=== PATIENT | male | born 1960 | race Caucasian/White ===

== ENCOUNTER → 2016-03-17 | Day surgery (SDC) | payer OTHER ==
[~2016-03-17] VITALS: Ht 180.3 cm; Wt 115.9 kg
[~2016-03-17] MED LIST: ALBUAER9 INH; APDI SC; ASPI1TAB83 PO; ATOR-26 PO; ATRIN INH; ATRINSX INH; ATV/1 PO; AZEL30SP NAE; AZELASTINE HCL 0.1% NAE; BUPR-79 PO; CLAR500T3 PO; CLR10 PO; CRDCD/180 PO; DILT-113 PO; DOCU100C31 PO; ERGO1CAP41 PO; FLNIN NAE; FLOVENT 220 MCG INH; FLUT0.15 NAE; FLUT1INH PO; FLUT1INH7 INH; GABA-113 PO; GABA600T PO; GLIP-171 PO; GLIP5TAB3 PO; GUAI1TAB55 PO; INSDGIPEN SC; INSU100I2 SQ; IPRA1AER2 INH; LEVO-366 PO; LIDOCAINE HCL 2% 2 ML VIAL (20MG/ML) ONE; LISI-461 PO; LISI5TAB PO; MECL1TAB42 PO; METF1000 PO; METH10TA PO; MIDAZOLAM HCL 1 MG/ML 2ML VIAL ONE; MISCCAP80 PO; MONT1TAB5 PO; MTH10 PO; MULT-190 PO; NRN800 PO; ONDANSETRON INJ 2 MG/ML 2 ML VIAL ONE; OXGN; OXYC1TAB3 PO; PANT40TA PO; PRED10TA PO; PROM25TA9 PO; PROPOFOL IV EMULSION 10 MG/ML 20 ML VIAL IV ONE; PRVIN5 INH; RANI150T3 PO; SALI0.6510 NAE; SUCR1TAB29 PO; SYMIN160 INH; UMEC1INH INH; ZTHM250 OR
--- NOTE | 2016-03-17 10:43 | Endo History and Physical ---
History & Physical Date of Service: Mar 17, 2016. Chief Complaint: chest pain Referring Physician: Dr. Lupe Dean History of Present Illness Patient referred for evaluation of intermitant chest pain and occional solid food dyphagia. Long history of COPD, ASCAD, CHF and DM. Past Medical History Diabetes, Arthritis, Anxiety, Hypertension, COPD, Depression Past Surgical History Hx Cardiac Surgery: No Hx Abdominal Surgery: No Hx Post-Op Nausea and Vomiting: No Hx Cancer Surgery: No Hx Thoracic Surgery: No Hx Orthopedic: No Hx Urinary Tract Surgery: Yes (lithotripsy) Social History Smoking Status: Never Smoker Hx Substance Use: No Hx Alcohol Use: No Allergies Coded Allergies: Fentanyl (Verified Allergy, Mild, 03/17/16) Atenolol (Verified Allergy, Unknown, DEPRESSION/SUICIDAL, 03/17/16) Celecoxib (Verified Allergy, Unknown, -, 03/17/16) PT STATES HE DOES NOT REMEMBER, IT WAS SO LONG AGO (OK TO TAKE FLOMAX) Fluoxetine (Verified Adverse Reaction, Mild, LIGHTHEADED,NAUSEA, 03/17/16) Current Medications Reported Home Medications Medications Dose Route/Sig Max Daily Dose Days Date Category Dose Instructions Levaquin (Levofloxacin) 500 Mg Tab 500 Mg PO DAILY 7 02/19/16 Reported [place] Nasal [place] (Saline) 0.65 % Spr 2 Sprays LILLI DAILY PRN 02/19/16 Reported Docusate Sodium 100 Mg Cap 1 Cap PO DAILY 30 02/19/16 Reported Claritin (Loratadine) 10 Mg Tab 10 Mg PO HS 02/19/16 Reported Atrovent 0.02% Soln (Ipratropium [place]) 2.5 Ml Nebu 2.5 Ml INH Q6H PRN 02/19/16 Reported Carafate (Sucralfate) 1 Gm Tab 1 Gm PO ACHS 02/19/16 Reported one pill as a slurry by mouth one half curtis before meals and at bedtime Zantac (Ranitidine HCl) 150 Mg Tab 300 Mg PO HS 02/19/16 Reported Tiazac (Diltiazem HCl) 180 Mg Capcr 180 Mg PO DAILY 02/19/16 Reported [azelastine hcl 0.1%] 1 [place] LILLI BID 02/19/16 Reported Symbicort 160/4.5 Inhaler (Budesonide/Formoterol Fumarate) Aero 2 Puffs INH BID 02/19/16 Reported Lipitor (Atorvastatin Calcium) 80 Mg Tab 80 Mg PO HS 02/19/16 Reported Biaxin (Clarithromycin) 500 Mg Tab 1 Tab PO BID 10 02/19/16 Reported Neurontin (Gabapentin) 300 Mg Cap 900 Mg PO TID 02/19/16 Reported Combivent Respimat (Ipratropium-Albuterol) 1 Aer Aer 2 Puffs INH QID PRN 02/19/16 Reported Lantus Solostar (Insulin Glargine) 100 Unit/Ml Inj 25 SC BID 02/19/16 Reported per sliding scale [flovent hfa 220mcg] 1 Puff INH BID 02/19/16 Reported Probiotic (Probiotic Product) 1 Cap Cap 1 Cap PO TIDM 02/19/16 Reported Montelukast Sodium 10 Mg Tab 1 Tab PO HS 90 02/19/16 Reported Incruse Ellipta (Umeclidinium [place]) 62.5 Mcg/Inh Inh 1 Puff INH DAILY 02/19/16 Reported Roxicodone Ir (Oxycodone HCl) 5 Mg Tab 15 Mg PO TID PRN 02/19/16 Reported Wellbutrin Sr (Bupropion HCl) 150 Mg Ertab 150 Mg PO BID 04/10/15 Reported Glucotrol (Glipizide) 5 Mg Tab 5 Mg PO BID PRN 04/10/15 Reported Apidra Solostar (Insulin Glulisine) 100 Units/Ml Inj 15 Units INJ TIDM 04/10/15 Reported Breo Ellipta (Fluticasone Furoate-Vilanterol) 1 Inh Inh 1 Inha PO DAILY 04/10/15 Reported Oxygen Gas 2 Liters NA HS 03/29/14 Reported Mucinex Ext Rel (Guaifenesin) 600 Mg Tab 600 Mg PO Q12 03/29/14 Reported Ativan (Lorazepam) 1 Mg Tab 1 Mg PO TID PRN 03/29/14 Reported Humalog Kwikpen (Insulin Lispro (Human)) 100 Unit/Ml Inj 15 Units SQ SHASTA MEAL 03/29/14 Reported Humalog Kwikpen (Insulin Lispro (Human)) 100 Unit/Ml Inj 12 Units SQ LUNCH 03/29/14 Reported Humalog Kwikpen (Insulin Lispro (Human)) 100 Unit/Ml Inj 10 Units SQ BREAKFAST 03/29/14 Reported Flonase Nasal [place] (Fluticasone Propionate) 120 Sprays/6000 Mcg Inha 2 Sprays LILLI DAILY 12/19/12 Reported Aspirin 81 Mg Tab 81 Mg PO DAILY 12/19/12 Reported Prednisone 10 Mg Tab 20 Mg PO UD PRN 12/19/12 Reported take 20mg daily for 10 days Glucophage (Metformin Hcl) 1,000 Mg Tab 1,000 Mg PO BIDM 12/19/12 Reported Protonix (Pantoprazole Sodium) 40 Mg Tab 40 Mg PO QAM 05/21/12 Reported TAKE 30 MINUTES BEFORE THE FIRST MEAL OF THE DAY. Prinivil (Lisinopril) 5 Mg Tab 10 Mg PO DAILY 04/15/12 Reported Proventil Hfa (Albuterol Sulfate) Aer 0.5 Ml INH Q4H PRN 11/05/11 Reported combine with atrovent Vitamin D 16959 Unit (Ergocalciferol) 50,000 Unit Cap 50,000 Units PO WK 06/02/11 Reported SUNDAYS Dolophine (Methadone Hcl) 10 Mg Tab 10 Mg PO Q8 06/02/11 Reported Physical Exam General Appearance: no apparent distress Respiratory/Chest: Auscultation: deminished air movement Cardiovascular: Heart Auscultation: II/ MANOJ Abdomen: Inspection & Palpation: soft, pertinent finding (obese) Assessment and Plan EGD for evalaution of intermitant chest pain and solid food dysphagia. Risks discussed to include bleeding, infection, perforation, pain, and cardiopulmonary problems.
[2016-03-17 10:51] VITALS: Ht 180.3 cm; Wt 115.9 kg
[2016-03-17 10:55] VITALS: TEMP 36.9
--- NOTE | 2016-03-17 11:16 | GI REPORT ---
Procedure Date: 03/17/2016 11:00 AM Procedure: Upper GI endoscopy Indications: Dysphagia, Unexplained chest pain Medicines: Monitored Anesthesia Care Complications: No immediate complications. Estimated blood loss: Minimal. Estimated Blood Loss: Estimated blood loss was minimal. Procedure: Pre-Anesthesia Assessment: - Prior to the procedure, a History and Physical was performed, and patient medications, allergies and sensitivities were reviewed. The patient's tolerance of previous anesthesia was reviewed. - The risks and benefits of the procedure and the sedation options and risks were discussed with the patient. All questions were answered and informed consent was obtained. - Patient identification and proposed procedure were verified prior to the procedure by the physician, the nurse and the rubber goods finisher. The procedure was verified in the procedure room. - Pre-procedure physical examination revealed no contraindications to sedation. - ASA Grade Assessment: III - A patient with severe systemic disease. - After reviewing the risks and benefits, the patient was deemed in satisfactory condition to undergo the procedure. - The anesthesia plan was to use monitored anesthesia care (MAC). - Immediately prior to administration of medications, the patient was re-assessed for adequacy to receive sedatives. - The heart rate, respiratory rate, oxygen saturations, blood pressure, adequacy of pulmonary ventilation, and response to care were monitored throughout the procedure. - The physical status of the patient was re-assessed after the procedure. After obtaining informed consent, the endoscope was passed under direct vision. Throughout the procedure, the patient's blood pressure, pulse, and oxygen saturations were monitored continuously. The scope was introduced through the mouth, and advanced to the third part of duodenum. The upper GI endoscopy was accomplished without difficulty. The patient tolerated the procedure well. Findings: No endoscopic abnormality was evident in the esophagus to explain the patient's complaint of dysphagia. It was decided, however, to proceed with dilation of the entire esophagus. A guidewire was placed and the scope was withdrawn. Dilation was performed with a Savary dilator with mild resistance at 54 Fr. The endoscope was then reinserted to evaluate the success of the procedure. Estimated blood loss: none. Biopsies were taken with a cold forceps for histology. Estimated blood loss was minimal. The Z-line was regular and was found 40 cm from the incisors. Diffuse minimal inflammation characterized by erythema and granularity was found in the entire examined stomach. Biopsies were taken with a cold forceps for histology. Estimated blood loss was minimal. The examined duodenum was normal. Biopsies for histology were taken with a cold forceps for evaluation of celiac disease. Estimated blood loss was minimal. Impression: - No endoscopic esophageal abnormality to explain patient's dysphagia. Esophagus dilated to 54 Fr today. Biopsied to evalaute for evidence of reflux. - Z-line regular, 40 cm from the incisors. - Gastritis. Biopsied. - Normal examined duodenum. Biopsied. Recommendation: - Discharge patient to home (ambulatory). - Advance diet as tolerated today. - Await pathology results. - Observe patient's clinical course following today's procedure with therapeutic intervention. - Return to referring physician as previously scheduled. Manuel Michaels D.O. Manuel Michaels, 03/17/2016 11:16:33 AM This report has been signed electronically. Note Initiated On: 03/17/2016 11:00 AM
--- NOTE | 2016-03-17 11:18 | Discharge Instructions ---
Endoscopy Patient Instructions Date / Procedure(s) Performed Mar 17, 2016. EGD Allergy Information Coded Allergies: Fentanyl (Verified Allergy, Mild, 03/17/16) Atenolol (Verified Allergy, Unknown, DEPRESSION/SUICIDAL, 03/17/16) Celecoxib (Verified Allergy, Unknown, -, 03/17/16) PT STATES HE DOES NOT REMEMBER, IT WAS SO LONG AGO (OK TO TAKE FLOMAX) Fluoxetine (Verified Adverse Reaction, Mild, LIGHTHEADED,NAUSEA, 03/17/16) Discharge Date / Findings Mar 17, 2016. Mild gastritis otherwise normal Medication Instructions Stopped Medication(s): no PAT did not take any medications Restart Stopped Medication(s): Reported Home Medications Medications Dose Route/Sig Max Daily Dose Days Date Category Dose Instructions Levaquin (Levofloxacin) 500 Mg Tab 500 Mg PO DAILY 7 02/19/16 Reported [place] Nasal [place] (Saline) 0.65 % Spr 2 Sprays LILLI DAILY PRN 02/19/16 Reported Docusate Sodium 100 Mg Cap 1 Cap PO DAILY 30 02/19/16 Reported Claritin (Loratadine) 10 Mg Tab 10 Mg PO HS 02/19/16 Reported Atrovent 0.02% Soln (Ipratropium [place]) 2.5 Ml Nebu 2.5 Ml INH Q6H PRN 02/19/16 Reported Carafate (Sucralfate) 1 Gm Tab 1 Gm PO ACHS 02/19/16 Reported one pill as a slurry by mouth one half [place]is before meals and at bedtime Zantac (Ranitidine HCl) 150 Mg Tab 300 Mg PO HS 02/19/16 Reported Tiazac (Diltiazem HCl) 180 Mg Capcr 180 Mg PO DAILY 02/19/16 Reported [azelastine hcl 0.1%] 1 [place] LILLI BID 02/19/16 Reported Symbicort 160/4.5 Inhaler (Budesonide/Formoterol Fumarate) Aero 2 Puffs INH BID 02/19/16 Reported Lipitor (Atorvastatin Calcium) 80 Mg Tab 80 Mg PO HS 02/19/16 Reported Biaxin (Clarithromycin) 500 Mg Tab 1 Tab PO BID 10 02/19/16 Reported Neurontin (Gabapentin) 300 Mg Cap 900 Mg PO TID 02/19/16 Reported Combivent Respimat (Ipratropium-Albuterol) 1 Aer Aer 2 Puffs INH QID PRN 02/19/16 Reported Lantus Solostar (Insulin Glargine) 100 Unit/Ml Inj 25 SC BID 02/19/16 Reported per sliding scale [flovent hfa 220mcg] 1 Puff INH BID 02/19/16 Reported Probiotic (Probiotic Product) 1 Cap Cap 1 Cap PO TIDM 02/19/16 Reported Montelukast Sodium 10 Mg Tab 1 Tab PO HS 90 02/19/16 Reported Incruse Ellipta (Umeclidinium [place]) 62.5 Mcg/Inh Inh 1 Puff INH DAILY 02/19/16 Reported Roxicodone Ir (Oxycodone HCl) 5 Mg Tab 15 Mg PO TID PRN 02/19/16 Reported Wellbutrin Sr (Bupropion HCl) 150 Mg Ertab 150 Mg PO BID 04/10/15 Reported Glucotrol (Glipizide) 5 Mg Tab 5 Mg PO BID PRN 04/10/15 Reported Apidra Solostar (Insulin Glulisine) 100 Units/Ml Inj 15 Units INJ TIDM 04/10/15 Reported Breo Ellipta (Fluticasone Furoate-Vilanterol) 1 Inh Inh 1 Inha PO DAILY 04/10/15 Reported Oxygen Gas 2 Liters NA HS 03/29/14 Reported Mucinex Ext Rel (Guaifenesin) 600 Mg Tab 600 Mg PO Q12 03/29/14 Reported Ativan (Lorazepam) 1 Mg Tab 1 Mg PO TID PRN 03/29/14 Reported Humalog Kwikpen (Insulin Lispro (Human)) 100 Unit/Ml Inj 15 Units SQ SHASTA MEAL 03/29/14 Reported Humalog Kwikpen (Insulin Lispro (Human)) 100 Unit/Ml Inj 12 Units SQ LUNCH 03/29/14 Reported Humalog Kwikpen (Insulin Lispro (Human)) 100 Unit/Ml Inj 10 Units SQ BREAKFAST 03/29/14 Reported Flonase Nasal [place] (Fluticasone Propionate) 120 Sprays/6000 Mcg Inha 2 Sprays LILLI DAILY 12/19/12 Reported Aspirin 81 Mg Tab 81 Mg PO DAILY 12/19/12 Reported Prednisone 10 Mg Tab 20 Mg PO UD PRN 12/19/12 Reported take 20mg daily for 10 days Glucophage (Metformin Hcl) 1,000 Mg Tab 1,000 Mg PO BIDM 12/19/12 Reported Protonix (Pantoprazole Sodium) 40 Mg Tab 40 Mg PO QAM 05/21/12 Reported TAKE 30 MINUTES BEFORE THE FIRST MEAL OF THE DAY. Prinivil (Lisinopril) 5 Mg Tab 10 Mg PO DAILY 04/15/12 Reported Proventil Hfa (Albuterol Sulfate) Aer 0.5 Ml INH Q4H PRN 11/05/11 Reported combine with atrovent Vitamin D 75692 Unit (Ergocalciferol) 50,000 Unit Cap 50,000 Units PO WK 06/02/11 Reported SUNDAYS Dolophine (Methadone Hcl) 10 Mg Tab 10 Mg PO Q8 06/02/11 Reported Provider Instructions Activity Restrictions - No exercising or heavy lifting for 24 hours. - Do not drink alcohol the day of the procedure. - Do not drive a car or operate machinery until the day after the procedure. - Do not make any important decisions or sign important papers in 24 hours after the procedure. Following Day: - Return to full activity which may include returning to work/school. Diet Start your diet with liquids and light foods (jello, soup, juice, toast). Then eat your usual diet if not nauseated. Treatment For Common After Affects For mild abdominal pain, bloating, or excessive gas: - Rest - Eat lightly - Lie on right side Follow-Up Information Follow-up with Dr. Dean as scheduled Await pathology results No EGD finding to explain recurrent chest pain. Anesthesia Information What You Should Know You have had a procedure that required some medicine to reduce anxiety and discomfort. This treatment is called moderate sedation. After receiving the treatment, you may be sleepy, but you will be able to breathe on your own. The effects of the treatment may last for several hours. Follow these instructions along with Activity/Diet recommendations noted above: * Do NOT do anything where dizziness or clumsiness would be dangerous. * Rest quietly at home today, then you can be up and about tomorrow. * Have a responsible person stay with you the rest of today. * You may have had an I.V. today. If so, you may take the dressing off later today. Recommendations Call your doctor if: * Trouble breathing * Continuous vomiting for more than 24 hours * Temperature above 101 degrees * Severe abdominal pain or bloating * Pain not relieved by pain medicine ordered * There is increased drainage or redness from any incision * A large amount of rectal bleeding greater than 2-3 tablespoons. (If you had a polyp/s removed or have hemorrhoids, a small amount of blood - from the rectum is to be expected.) * You have any unanswered questions or concerns. IN THE EVENT OF A SERIOUS EMERGENCY, GO TO THE NEAREST EMERGENCY ROOM Your discharge instructions were prepared by provider Manuel Michaels. Patient Instructions Signature Page Sina Ann Patient (or Guardian) Signature/Date: I have read and understand the instructions given to me by my caregivers. Caregiver/RN/Doctor Signature/Date: The above-named patient and/or guardian has received patient instructions on this date. + Original Patient Signature Page (only) stays with chart. Please make copy for patient.
--- NOTE | 2016-03-17 12:14 | Anesthesiology Progress Note ---
Anesthesia Post Op Note Date & Time Mar 17, 2016 at 12:14 Vital Signs Pain Intensity: 2 Vital Signs Past 12 Hours Date Time Temp Pulse Resp B/P Pulse Ox O2 Delivery O2 Flow Rate FiO2 03/17/16 11:57 81 18 106/73 91 Room Air 03/17/16 11:50 80 18 109/70 92 Room Air 03/17/16 11:30 76 18 109/67 93 Room Air 03/17/16 11:18 80 18 115/67 96 Mask 6 03/17/16 10:55 36.9 95 18 133/83 96 Room Air Notes Mental Status: alert / awake / arousable, participated in evaluation Pt Amnestic to Procedure: Yes Nausea / Vomiting: adequately controlled Pain: adequately controlled Airway Patency, RR, SpO2: stable & adequate BP & HR: stable & adequate Hydration State: stable & adequate Anesthetic Complications: no major complications apparent
[2016-03-17 12:32] VITALS: BP 107/60; PULSE 76; O2SAT 91
== END | disposition home or self-care (01) ==
LOC: C.GI 09:37
PROVIDERS: ATTEND Internal Medicine Gastroenterology
DX: R13.10 Dysphagia, unspecified (principal); K29.70 Gastritis, unspecified, without bleeding; R07.89 Other chest pain; K21.9 Gastro-esophageal reflux disease without esophagitis; J44.9 Chronic obstructive pulmonary disease, unspecified; E11.9 Type 2 diabetes mellitus without complications; I50.9 Heart failure, unspecified; F32.9 Major depressive disorder, single episode, unspecified; Z79.4 Long term (current) use of insulin; Z79.82 Long term (current) use of aspirin; Z88.5 Allergy status to narcotic agent; Z88.8 Allergy status to other drugs, medicaments and biological substances

== ENCOUNTER 2016-11-08 00:24 | Inpatient (IN) | payer OTHER ==
[2016-11-08] VITALS (9 sets, daily range): BP systolic 110–150; BP diastolic 67–83; PULSE 72–113; TEMP 36.4–36.7; O2SAT 92–96; Ht 180.3 cm; Wt 119.2 kg
[~2016-11-08] VITALS: Ht 180.3 cm; Wt 119.2 kg
[~2016-11-08 00:24] MED LIST changes: -ATRIN INH; -AZEL30SP NAE; -CRDCD/180 PO; -FLUT0.15 NAE; -FLUT1INH7 INH; -GABA600T PO; -GLIP-171 PO; -LIDOCAINE HCL 2% 2 ML VIAL (20MG/ML) ONE; -LISI-461 PO; -MECL1TAB42 PO; -MIDAZOLAM HCL 1 MG/ML 2ML VIAL ONE; -MTH10 PO; -MULT-190 PO; -NRN800 PO; -ONDANSETRON INJ 2 MG/ML 2 ML VIAL ONE; -PROM25TA9 PO; -PROPOFOL IV EMULSION 10 MG/ML 20 ML VIAL IV ONE; -PRVIN5 INH; -ZTHM250 OR
--- NOTE | 2016-11-08 00:40 | EMERGENCY ROOM VISIT NOTE ---
History Report prepared by Scribe: Catia Bradley Under the Supervision of: Dr. Tan Marie M.D. First contact with patient: 00:32 Chief Complaint: SHORTNESS OF BREATH Stated Complaint: SOB,PAIN IN EXTREMITIES,POSSIBLE SINUS INFECTION History of Present Illness The patient is a 56 year old male who presents to the Emergency Room with complaints of worsening shortness of breath for the past 3 days. He reports his symptoms started after he aspirated a small metal object after eating egg noodles, and then coughed the object out. He has tried using breathing treatments with no relief. He wears Oxygen at night and notes he has recently gone from 2 Liters to 4 Liters at night. The patient denies any history of DVT' s or PE's. He admits his legs have been more swollen than normal but his reports he has a history of neuropathy and leg pain and swelling are chronic for him. The patient also complains of intermittent chest pain stating "it comes and goes". He denies any recent fevers. 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 A total of 10 systems reviewed and were otherwise negative. Past Medical & Surgical Medical Problems: (1) Benign hypertension (2) Benign prostatic hyperplasia (3) Cervical disc disorder (4) Chronic obstructive lung disease (5) Chronic pain syndrome (6) Diabetes mellitus type 2 (7) Diabetic neuropathy (8) Dyslipidemia (9) Lithotripsy (10) Normal colonoscopy (11) Steatosis of liver (12) Vasodepressor syncope Family History Diabetes mellitus FH: asthma FH: heart disease ([place] at age 43) Hypertension Social History Smoking Status: Never Smoker Alcohol Use: none Drug Use: none Marital Status: Housing Status: lives with family Occupation Status: disabled Current/Historical Medications Scheduled Aspirin (Aspirin), 81 MG PO DAILY Atorvastatin (Lipitor), 80 MG PO HS Azelastine Hcl-Fluticasone Pro (Dymista), 1 SPRY LILLI BID Bupropion (Wellbutrin Sr), 150 MG PO BID Diltiazem Hcl Coated Beads (Cardizem Cd), 180 MG PO DAILY Ergocalciferol (Vitamin D 20905 Unit), 50,000 UNITS PO WK Fluticasone Furoate-Vilanterol (Breo Ellipta 200-25 Mcg/INH), 1 PUFF INH DAILY Fluticasone Propionate (Nasal) (Flonase Allergy Relief), 2 SPRY LILLI DAILY Gabapentin (Neurontin), 600 MG PO TID Glipizide Xl (Glucotrol Xl), 5 MG PO QAM Home O2 Therapy (Oxygen), 2 LITERS NA HS Insulin Glargine (Lantus Solostar), 20 UNITS SC BID Insulin Glulisine (Apidra Solostar), Unknown Dose SC ACHS Lisinopril (Lisinopril), 10 MG PO DAILY Loratadine (Claritin), 10 MG PO HS Metformin Hcl (Glucophage), 1,000 MG PO BIDM Methadone HCl (Methadone HCl), 5 MG PO DAILY IN AFTERNOON Methadone Hcl (Dolophine), 10 MG PO AMHS Montelukast Sodium (Montelukast Sodium), 1 TAB PO HS Ocuvite Preservision (Ocuvite Preservision), 1 TAB PO DAILY Pantoprazole (Protonix), 40 MG PO QAM Probiotic Product (Probiotic), 1 CAP PO TIDM Sucralfate (Carafate), 1 GM PO ACHS Umeclidinium Flovilla (Incruse Ellipta), 1 PUFF INH DAILY Scheduled PRN Albuterol Sulf (Albuterol Sulfate), 5 MG INH Q4H PRN for Wheezing Glipizide (Glucotrol), 5 MG PO DAILY PRN for WHEN USING PREDNISONE Ipratropium Flovilla (Atrovent 0.02% Soln), 2.5 ML INH Q6H PRN for Wheezing Ipratropium-Albuterol (Combivent Respimat), 2 PUFFS INH Q4H PRN for SOB/Wheezing Lorazepam (Ativan), 1 MG PO TID PRN for Anxiety Meclizine Hcl (Meclizine Hcl), 225 MG PO TID PRN for Dizziness or Vertigo Oxycodone Ir (Roxicodone Ir), 15 MG PO TID PRN for Pain Saline ([place] Nasal [place]), 2 SPRAYS LILLI DAILY PRN for congestion Allergies Coded Allergies: Atenolol (Verified Allergy, Severe, DEPRESSION/SUICIDAL, 11/08/16) Morphine (Verified Allergy, Severe, HALLUCINATIONS, DIAPHORESIS, LIGHTHEADEDNESS, 11/08/16) Amoxicillin (Verified Allergy, Intermediate, "SEVERE" DIARRHEA, 11/08/16) Celecoxib (Verified Allergy, Intermediate, FLUID RETENTION-WT GAIN, ) PT STATES HE DOES NOT REMEMBER, IT WAS SO LONG AGO (OK TO TAKE FLOMAX) Clavulanic Acid (Verified Allergy, Intermediate, "SEVERE" DIARRHEA, ) Fentanyl (Verified Allergy, Mild, RASH, 11/08/16) Fluoxetine (Verified Adverse Reaction, Severe, HALLUCINATIONS, 11/08/16) Physical Exam Vital Signs Date Time Temp Pulse Resp B/P (MAP) Pulse Ox O2 Delivery O2 Flow Rate FiO2 11/08/16 03:24 91 22 95 11/08/16 03:09 95 20 94 11/08/16 03:04 98 24 94 11/08/16 03:01 119/80 11/08/16 02:49 96 27 96 11/08/16 02:36 150/91 11/08/16 02:34 114 94 11/08/16 02:19 102 26 95 11/08/16 02:14 104 23 96 Nasal Cannula 4.0 11/08/16 02:01 123/83 11/08/16 01:59 98 19 92 11/08/16 01:44 106 20 95 11/08/16 01:31 145/88 11/08/16 01:29 112 24 96 11/08/16 01:14 103 14 99 11/08/16 01:09 107 18 96 11/08/16 01:06 Nasal Cannula 4.0 11/08/16 01:02 135/86 11/08/16 00:54 116 23 94 Nasal Cannula 4.0 11/08/16 00:41 116 11/08/16 00:39 116 20 91 Room Air 11/08/16 00:27 36.8 118 24 164/94 92 Room Air Physical Exam GENERAL: Patient is well appearing and in mild distress. HEENT: No acute trauma, normocephalic atraumatic, mucous membranes moist, no nasal congestion, no scleral icterus. NECK: No stridor, no adenopathy, no meningismus, trachea is midline. LUNGS: Tight lung sounds, faint wheezing. HEART: Tachycardic heart rate, regular rhythm. No murmurs, rubs, gallops appreciated. ABDOMEN: Soft, nontender, bowel sounds positive, no masses appreciated, no peritonitis. BACK: No midline tenderness, no CVA tenderness EXTREMITIES: Normal motion all extremities, no cyanosis, no edema. NEUROLOGIC: Alert and oriented, no acute motor or sensory deficits, no focal weakness, cranial nerves grossly intact. SKIN: No rash, no jaundice, no diaphoresis. Medical Decision & Procedures ER Provider Diagnostic Interpretation: Radiology results and stated below per my review interpretation: CHEST X-RAY, 1 VIEW Enlarged heart, similar to previous X-Ray. No infiltrate, no effusion, no pneumothorax. Laboratory Results 11/08/16 00:55 Red Blood Count 4.90, Mean Corpuscular Volume 89.0, Mean Corpuscular Hemoglobin 29.4, Mean Corpuscular Hemoglobin Concent 33.0, Mean Platelet Volume 11.5, Neutrophils (%) (Auto) 60.0, Lymphocytes (%) (Auto) 28.9, Monocytes (%) (Auto) 9.6, Eosinophils (%) (Auto) 0.7, Basophils (%) (Auto) 0.2, Neutrophils # (Auto) 11.77, Lymphocytes # (Auto) 5.67, Monocytes # (Auto) 1.88, Eosinophils # (Auto) 0.14, Basophils # (Auto) 0.04 11/08/16 00:55 Test 11/08/16 00:55 11/08/16 00:58 11/08/16 01:03 11/08/16 02:30 White Blood Count 19.61 K/uL (4.8-10.8) Red Blood Count 4.90 M/uL (4.7-6.1) Hemoglobin 14.4 g/dL (14.0-18.0) Hematocrit 43.6 % (42-52) Mean Corpuscular Volume 89.0 fL (80-100) Mean Corpuscular Hemoglobin 29.4 pg (25-34) Mean Corpuscular Hemoglobin Concent 33.0 g/dl (32-36) Platelet Count 289 K/uL (130-400) Mean Platelet Volume 11.5 fL (7.4-10.4) Neutrophils (%) (Auto) 60.0 % Lymphocytes (%) (Auto) 28.9 % Monocytes (%) (Auto) 9.6 % Eosinophils (%) (Auto) 0.7 % Basophils (%) (Auto) 0.2 % Neutrophils # (Auto) 11.77 K/uL (1.4-6.5) Lymphocytes # (Auto) 5.67 K/uL (1.2-3.4) Monocytes # (Auto) 1.88 K/uL (0.11-0.59) Eosinophils # (Auto) 0.14 K/uL (0-0.5) Basophils # (Auto) 0.04 K/uL (0-0.2) RDW Standard Deviation 43.8 fL (36.4-46.3) RDW Coefficient of Variation 13.4 % (11.5-14.5) Immature Granulocyte % (Auto) 0.6 % Immature Granulocyte # (Auto) 0.11 K/uL (0.00-0.02) Prothrombin Time 9.7 SECONDS (9.0-12.0) Prothromb Time International Ratio 0.9 (0.9-1.1) Activated Partial Thromboplast Time 24.7 SECONDS (21.0-31.0) Partial Thromboplastin Ratio 1.0 D-Dimer < 190 ug/L FEU (0-500) Anion Gap 12.0 mmol/L (3-11) Est Creatinine Clear Calc Drug Dose 86.6 ml/min Estimated GFR () 76.8 Estimated GFR (Non- 66.3 BUN/Creatinine Ratio 13.0 (10-20) Calcium Level 9.2 mg/dl (8.5-10.1) Magnesium Level 1.8 mg/dl (1.8-2.4) Total Creatine Kinase 67 U/L (39-308) Creatine Kinase MB 1.0 ng/ml (0.5-3.6) Creatine Kinase MB Ratio 1.5 (0-3.0) Troponin I < 0.015 ng/ml (0-0.045) Pro-B-Type Natriuretic Peptide 33 pg/ml (0-900) Beta-Hydroxybutyric Acid 1.92 mg/dL (0.2-2.81) Chemistry Specimen Hemolysis Bedside Lactic Acid Venous 6.09 mmol/L (0.90-1.70) Venous Blood pH 7.41 (7.36-7.41) Venous Blood Partial Pressure CO2 39 mmHg (38.0-50.0) Venous Blood Partial Pressure O2 52 mmHg Venous Blood HCO3 24 mmol/L Venous Blood Oxygen Saturation 83.5 % Venous Blood Base Excess -0.2 mEq/L Urine Color YELLOW Urine Appearance CLEAR (CLEAR) Urine pH 5.0 (4.5-7.5) Urine Specific [place] 1.025 (1.000-1.030) Urine Protein NEG (NEG) Urine Glucose (UA) 3+ (NEG) Urine Ketones 1+ (NEG) Urine Occult Blood NEG (NEG) Urine Nitrite NEG (NEG) Urine Bilirubin NEG (NEG) Urine Urobilinogen NEG (NEG) Urine Leukocyte Esterase NEG (NEG) Test 11/08/16 02:40 Lactic Acid Level 3.1 mmol/L (0.4-2.0) Procalcitonin < 0.05 ng/ml (0-0.5) Laboratory results as reviewed by me. Medications Administered Medications (Trade) Dose Ordered Sig/Gio Route Start Time Stop Time Status Last Admin Dose Admin Methylprednisolone Sodium Succinate (Solu-Medrol IV) 125 mg NOW STAT IV 11/08/16 00:42 11/08/16 00:44 DC 11/08/16 01:09 125 MG Albuterol/ Ipratropium (Duoneb) 3 ml NOW STAT INH 11/08/16 00:42 11/08/16 00:44 DC 11/08/16 01:09 3 ML Sodium Chloride 1,000 ml @ 999 mls/hr Q1H1M STAT IV 11/08/16 01:00 11/08/16 02:00 DC 11/08/16 01:03 999 MLS/HR Levofloxacin (Levaquin / D5W) 750 mg NOW STAT IV 11/08/16 01:24 11/08/16 01:25 DC 11/08/16 01:44 750 MG Sodium Chloride 1,000 ml @ 999 mls/hr Q1H1M STAT IV 11/08/16 01:24 11/08/16 02:24 DC 11/08/16 01:42 999 MLS/HR Vancomycin HCl 2300 mg/Sodium Chloride 546 ml @ 200 mls/hr ONE STAT IV 11/08/16 01:44 11/08/16 04:27 DC 11/08/16 02:21 200 MLS/HR ECG Indication: SOB/dyspnea Rate (beats per minute): 112 Rhythm: sinus tachycardia Findings: no acute ischemic change, no ectopy ED Course 0023: The patient was evaluated in room B10. A complete history and physical exam was performed. 0042: DuoNeb 3 ml INH, Solu-Medrol 125 mg IV. 0100: Nursing informed me the patients lactate is 6.09. 0100: NSS 1000 ml @ 999 mls/hr IV. 0124: NSS 1000 ml @ 999 mls/hr IV, Levaquin 750 mg IV. 0140: I reevaluated the patient. His breathing has improved. His heart rate is 105 and he feels very shaky after the breathing treatment. He states he just remembered that he took a few tablets of Levaquin a few days ago. 0144: Vancomycin HCl 2300 mg/NSS 546 ml @ 200 mls/hr IV. 0200: I discussed the patients case with John Abreu Hospitalist. The patient will be further evaluated. Medical Decision Differential: Infectious, Reactive Airway Disease, Pneumonia, Pneumothorax, COPD , CHF, ACS, Pulmonary Embolism, MSK, GI, Dissection, amongst other etiologies entertained. 56 yr old male arrives with respiratory distress moving minimal air and requiring increasing NC O2 at home. Quite tachy on arrival thus only single neb given along with fluids. Vastly improved breathing with this though very shaky thus further neb held for now. No overt evidence of heart failure and I feel this is more acute COPD exacerbation. However, Lactic acid is significantly elevated thus 2 L NSS bolus given with Vanco (~500ml fluid) and Levaquin. WBC elevated likely prednisone related though with elevated lactic acid must be treated as sepsis until proven otherwise. Levaquin/Vanco given as presumed lung source. Moderately hyperglycemic which will defer further treatment to hospitalist as given fluids here. He is not in DKA. VBG without acute acidosis. Medication Reconcilliation Current Medication List: was personally reviewed by me Blood Pressure Screening Patient's blood pressure: Normal blood pressure Blood pressure disposition: Did not require urgent referral Consults Time Called: 0155 Consulting Physician: John Abreu Hospitalist Returned Call: 0200 I discussed the patients case with John Abreu. The patient will be further evaluated. Impression Primary Impression: Sepsis Additional Impressions: COPD exacerbation Bronchitis Lactic acidosis Critical Care I have personally spent greater than 45 minutes of critical care time in the direct management of this patient. This was a life/limb threatening event. This includes time spent evaluating patient, direct bedside care, chart review, placing orders, interpretation of diagnostic studies, discussion with consultants, patient, and family members, as well as other required patient management activities. This 45 minutes is in excess of all separately billable procedures. Scribe Attestation The scribe's documentation has been prepared under my direction and personally reviewed by me in its entirety. I confirm that the note above accurately reflects all work, treatment, procedures, and medical decision making performed by me. Departure Information Dispostion Being Evaluated By Hospitalist Referrals Lupe Dean M.D. (MEDICAL) (PCP) Patient Instructions My [facility] Problem Qualifiers
[2016-11-08] MEDS ORDERED: ALBUT/IPRATROP 3MG/0.5MG NEB 3 ML VIAL INH STA (00:42)
[2016-11-08] MEDS ORDERED: METHYLPREDNISOLONE 125 MG VIAL IV STA (00:42)
[2016-11-08] MEDS ORDERED: SODIUM CHLORIDE 0.9% 1000ML 1,000 ML IV STA ×4 (01:00→12:38)
[2016-11-08 01:19] LABS: HEMATOCRIT 43.6 % (42-52); MEAN CORPUSCULAR HEMOGLOBIN 29.4 pg (25-34); MEAN PLATELET VOLUME 11.5 fL (7.4-10.4); PLATELET COUNT 289 K/uL (130-400); WHITE BLOOD COUNT 19.61 K/uL (4.8-10.8)
[2016-11-08 01:22] LABS: VEN BLD GAS O2 SATURATION 83.5 %; VEN BLOOD GAS BASE EXCESS -0.2 mEq/L; VENOUS BLOOD GAS PCO2 39 mmHg (38.0-50.0); VENOUS BLOOD GAS PO2 52 mmHg
[2016-11-08] MEDS ORDERED: LEVAQUIN 750MG / 150ML D5W IV STA (01:24)
[2016-11-08 01:41] LABS: INR 0.9 (0.9-1.1); PROTHROMBIN TIME (PATIENT) 9.7 SECONDS (9.0-12.0)
[2016-11-08] MEDS ORDERED: VANCOMYCIN INJ 2,300 MG in SODIUM CHLORIDE 0.9% 500ML 500 ML IV STA (01:44)
[2016-11-08 01:53] LABS: BLOOD UREA NITROGEN 16 mg/dl (7-18); CALCIUM 9.2 mg/dl (8.5-10.1); CARBON DIOXIDE 23 mmol/L (21-32); CHLORIDE 103 mmol/L (98-107); CKMB/CK RATIO 1.5 (0-3.0); GLUCOSE 309 mg/dl (70-99); MAGNESIUM 1.8 mg/dl (1.8-2.4); SODIUM 138 mmol/L (136-145)
[2016-11-08 02:04] LABS: BETA-HYDROXYBUTYRATE 1.92 mg/dL (0.2-2.81)
[2016-11-08 02:24] LABS: BASO % 0.2 %; BASO ABS # 0.04 K/uL (0-0.2); COMPLETE YES; EOS % 0.7 %; IG% 0.6 %; LYMPH % 28.9 %; LYMPH ABS # 5.67 K/uL (1.2-3.4); MONO % 9.6 %
[2016-11-08] MEDS ORDERED: GABA600T PO (02:25)
[2016-11-08] MEDS ORDERED: CRDCD/180 PO (02:25)
[2016-11-08] MEDS ORDERED: MTH10 PO (02:25)
[2016-11-08] MEDS ORDERED: UMEC1INH INH (02:25)
[2016-11-08] MEDS ORDERED: AZEL30SP NAE (02:25)
[2016-11-08] MEDS ORDERED: LISI-461 PO (02:25)
[2016-11-08] MEDS ORDERED: GLIP-171 PO (02:25)
[2016-11-08] MEDS ORDERED: FLUT0.15 NAE (02:25)
[2016-11-08] MEDS ORDERED: FLUT1INH7 INH (02:25)
[2016-11-08] MEDS ORDERED: MECL1TAB42 PO (02:25)
[2016-11-08] MEDS ORDERED: PRVIN5 INH (02:25)
[2016-11-08] MEDS ORDERED: MULT-190 PO (02:25)
[2016-11-08] MEDS ORDERED: ATRIN INH (02:25)
[2016-11-08 03:09] LABS: MANUAL MICROSCOPIC REQUIRED? NO; URINE APPEARANCE CLEAR (CLEAR); URINE BILIRUBIN NEG (NEG); URINE COLOR YELLOW; URINE NITRITE NEG (NEG); URINE SPECIFIC GRAVITY 1.025 (1.000-1.030); UROBILINOGEN NEG (NEG)
[2016-11-08 03:10] LABS: REVIEW REQ? NO
[2016-11-08] MEDS ORDERED: CLINDAMYCIN IV 600 MG in DEXTROSE 5% 50ML 50 ML IV STA (03:41)
[2016-11-08 03:44] LABS: ZZUR CULT IF INDIC CLEAN CATCH NO
[2016-11-08] MEDS ORDERED: INSULIN ASPART 100 UNITS/ML 3 ML PEN SC ONE (03:59)
[2016-11-08] MEDS ORDERED: INSULIN GLARGINE SOLOSTAR 100 UNITS/ML 3 ML PEN SC ONE (03:59)
[2016-11-08] MEDS ORDERED: LORAZEPAM 1 MG TAB PO PRN (04:00)
[2016-11-08] MEDS ORDERED: GLUCOSE 40% GEL 15 GM TUBE PO PRN (04:00)
[2016-11-08] MEDS ORDERED: DEXTROSE 50% 50 ML SYR IV PRN (04:00)
[2016-11-08] MEDS ORDERED: SODIUM CHLORIDE 0.9% 1000ML 1,000 ML IV SCH (04:00)
[2016-11-08] MEDS ORDERED: GLUCAGON FOR INJ 1 MG VIAL SQ PRN (04:00)
[2016-11-08] MEDS ORDERED: LEVALBUTEROL/IPRATROPIUM NEB INH PRN (04:00)
[2016-11-08] MEDS ORDERED: GLUCOSE 10 TABS/TUBE PO PRN (04:00)
[2016-11-08] MEDS ORDERED: ACETAMINOPHEN 325 MG TAB PO PRN (04:00)
[2016-11-08 06:24] LABS: ESTIMATED AVERAGE GLUCOSE 189 mg/dl; HA1C FLAG Normal (Normal)
--- NOTE | 2016-11-08 06:41 | DIAGNOSTIC IMAGING REPORT ---
CHEST ONE VIEW PORTABLE CLINICAL HISTORY: Shortness of breath. COMPARISON STUDY: Chest radiograph February 19, 2016. FINDINGS: Mild elevation of the right hemidiaphragm is unchanged. Cardiomediastinal silhouette is normal. No pneumothorax or pleural effusion is present. There is no evidence of pulmonary edema. The appearance of the chest is unchanged. IMPRESSION: No acute cardiopulmonary findings. Electronically signed by: Hipolito Leo M.D. 11/08/2016 6:40 AM Dictated Date/Time: 11/08/2016 6:39 AM
[2016-11-08 06:54] LABS: BUN/CREATININE RATIO 13.4 (10-20); CALCIUM 9.3 mg/dl (8.5-10.1); CREATININE 0.95 mg/dl (0.60-1.40); POTASSIUM 5.2 mmol/L (3.5-5.1)
[2016-11-08] MEDS: OXYCODONE HCL IR 5 MG TAB (IMMEDIATE RELEASE) PO PRN ×2 (07:09→19:29)
[2016-11-08] MEDS ORDERED: INSULIN HUMAN REGULAR PER UNIT 5 UNITS in SYRINGE 4.95 ML IV ONE (07:20)
[2016-11-08] MEDS: LEVALBUTEROL 1.25MG/0.5ML NEB INH SCH ×3 (07:30→19:50)
[2016-11-08] MEDS: IPRATROPIUM BROMIDE NEB SOLN 0.02% 2.5 ML VIAL INH SCH ×2 (07:30→14:13)
[2016-11-08] MEDS: GABAPENTIN 600 MG TAB PO SCH ×3 (07:38→19:32)
[2016-11-08] MEDS: ASPIRIN 81 MG ECTAB PO SCH (07:38)
[2016-11-08] MEDS: BuPROPion SR 150 MG TABCR PO SCH ×2 (07:39→19:32)
[2016-11-08] MEDS: SUCRALFATE 1 GM TAB PO SCH ×4 (07:39→19:33)
[2016-11-08] MEDS: CEROVITE ADV FORMULA TAB PO SCH (07:39)
[2016-11-08] MEDS: LACTOBACILLUS ACIDOPHILUS (FLORANEX) TAB PO SCH ×2 (07:39→16:56)
[2016-11-08] MEDS: CLINDAMYCIN HCL 150 MG CAP PO SCH ×3 (07:40→19:32)
[2016-11-08] MEDS: PANTOprazole SOD 40 MG TAB PO SCH (07:40)
[2016-11-08] MEDS: ENOXAPARIN 40 MG/0.4 ML SYR SQ SCH (07:40)
[2016-11-08] MEDS: DILTIAZEM HCL 180 MG CAPCR PO SCH (07:40)
[2016-11-08] MEDS ORDERED: OPTIRAY 320 IV PRN (07:45)
[2016-11-08] MEDS: INSULIN ASPART 100 UNITS/ML 3 ML PEN SC SCH ×4 (07:54→21:00)
[2016-11-08] MEDS: METHADONE HCL 10 MG TAB PO SCH ×2 (08:28→19:45)
[2016-11-08 08:58] LABS: INFLUENZA A PCR Neg for Influ A (NEG); INFLUENZA B PCR Neg for Influ B (NEG)
[2016-11-08] MEDS ORDERED: LISINOPRIL 10 MG TAB PO SCH (09:00)
[2016-11-08] MEDS ORDERED: LEVALBUTEROL/IPRATROPIUM NEB INH SCH (09:00)
[2016-11-08] MEDS ORDERED: CLINDAMYCIN CONSULT ACTIVE PRN ×2 (09:00)
--- NOTE | 2016-11-08 09:13 | DIAGNOSTIC IMAGING REPORT ---
CT OF THE CHEST WITH IV CONTRAST CLINICAL HISTORY: cough SEPSIS COMPARISON STUDY: To 7:15 TECHNIQUE: Following the IV administration of 94 mL of Optiray-320, CT of the thorax was performed from the thoracic inlet to the lung bases. Images are reviewed in the axial, sagittal, and coronal planes. IV contrast was administered without complication. A dose lowering technique was utilized adhering to the principles of ALARA. CT DOSE: 766.60 mGycm FINDINGS: Thyroid: Imaged portions of the thyroid gland are normal in appearance. Thoracic aorta: The thoracic aorta is normal in course and caliber, noting standard 3-vessel arch anatomy. No aneurysm or dissection is seen. Pulmonary vasculature: The pulmonary trunk is normal in caliber. There are no central filling defects identified to suggest pulmonary embolus. Note that this examination was not protocoled for the evaluation of pulmonary emboli. HEART: The heart is normal in size and configuration, without pericardial effusion. Lungs and pleural spaces: No pleural effusions are visualized. There is no focal pulmonary consolidation. Mediastinum: There is no mediastinal lymphadenopathy. Abbi: Clear. Axilla: Clear. Upper abdomen: There is mild hepatic steatosis. Skeletal structures: There are no lytic or blastic osseous lesions. IMPRESSION: No acute thoracic findings. No evidence of pathologic adenopathy. No evidence of focal pulmonary consolidation. Electronically signed by: Ashkan Ambrosio M.D. 11/08/2016 9:12 AM Dictated Date/Time: 11/08/2016 9:08 AM
[2016-11-08] MEDS: SODIUM CHLORIDE 0.9% 1000ML 1,000 ML IV SCH ×3 (09:48→20:01)
--- NOTE | 2016-11-08 10:55 | HISTORY & PHYSICAL EXAMINATION ---
DATE OF ADMISSION: 11/08/2016 PRIMARY CARE PHYSICIAN: Dr. Dean. CHIEF COMPLAINT: Cough, shortness of breath. HISTORY OF PRESENT ILLNESS: History obtained from patient and records. Medical history significant for hypertension, COPD, chronic pain on narcotics, hyperlipidemia, DM2, insulin requiring. hx vasodepressor syncope as per records. hx fatty liver disease Recent confinement April 2015 for chest pain, syncope. A few days ago, patient noted cough symptoms, productive of ordoñez sputum after he coughed on a small metal object after eating egg noodles. Chest pain with coughing, usual low back pain, symptoms not responding to home breathing treatments. Denies abdominal pain. Transient diarrhea as per patient. Patient brought to the Emergency Room. Given Solu-Medrol, nebs, Vancomycin, Levaquin for possible sepsis, COPD exacerbation, Pulse ox noted to be low at home on 2 liters. The patient sent to the Emergency Room. MEDICAL HISTORY: As above. SURGERIES: Urologic procedures. HOME MEDICATIONS: Include atorvastatin, Glucotrol, metformin, OxyIR, methadone, glipizide, Protonix, Lantus, multivitamins, gabapentin, diltiazem lisinopril, meclizine,montelukast, fluticasone, albuterol, Ativan, sucralfate, bupropion, loratadine. ALLERGIES: ATENOLOL, AUGMENTIN, MORPHINE. FAMILY HISTORY: History of diabetes, asthma, heart disease. PERSONAL AND SOCIAL HISTORY: Nonsmoker, no chronic intake of alcoholic beverages, disabled. REVIEW OF SYSTEMS: As per HPI, all other ROS negative. PHYSICAL EXAMINATION: VITAL SIGNS: Blood pressure was noted to be 164/90 later 140/80, pulse rate 118 later 98, RR 24 later 18, temperature 36.8, sats 98 on 4L. GENERAL: Noted to be comfortable, no respiratory distress. Obese SKIN: Normal color. HEENT : [place] palpebral conjunctivae, dry buccal mucosa, nasal cannula in place NECK: Short. HEART: RRR LUNGS: Decreased breath sounds. no exp wheeze at time of exam. ABDOMEN: Some distention, nontender. NEUROLOGIC: No gross focality. LABORATORY DATA: Hemoglobin was noted to be 14.4, hematocrit 30, white cell 19, platelets 289. Sodium noted to be 130, potassium 4, chloride 90, CO2 30, BUN 16, creatinine 1.2, glucose 309 POC lactic acid 6, N procalcitonin vBG ph 7.41, pCO2 39 Hemoglobin A1c from May 2016 was 7.3. IMAGING DATA: Chest x-ray As per my interpretation, elevated hemidiaphragm. EKG as per my interpretation, rate 115, sinus tachycardia, some T-wave flattening in the lateral leads. ASSESSMENT: 1. Acute hypoxemic respiratory failure secondary to chronic obstructive pulmonary disease exacerbation secondary to possible aspiration pneumonitis marked clinical improvement after initial ER intervention. 2. sepsis secondary to above. 3. Hypertension, stable. 4. chronic diastolic dysfunction as per records, patient may be on the dry side 5. DM2, insulin requiring, reasonable control as of recent outpx HgA1c. Patient noted to be hyperglycemic in the Emergency Room after after steroid administration. 6. History of vasodepressor syncope as per records 7. chronic pain on narcotics PLAN: GMF Supplemental O2 CS, Clindamycin for possible aspiration pneumonitis flu swab Nebs RTC, prn, prednisone course for possible COPD exacerbation IVF, follow lactic acid IV fluids follow lactic acid. Basal insulin, ISS BG goal 140-180. Patient due for Hg A1c recheck. DVT prophylaxis, Lovenox subQ. Full code. MTDD
[2016-11-08 12:05] LABS: VEN BLD GAS O2 SATURATION 75.4 %; VEN BLOOD GAS BASE EXCESS -3.6 mEq/L
[2016-11-08] MEDS ORDERED: VANCOMYCIN 1GM/270ML NSS IV STA (12:47)
[2016-11-08] MEDS ORDERED: VANCOMYCIN CONSULT ACTIVE PRN (14:00)
[2016-11-08 14:06] LABS: URINE APPEARANCE CLEAR (CLEAR); URINE BILIRUBIN NEG (NEG); URINE COLOR YELLOW; URINE EPITHELIAL CELL AUTO 0-5 /lpf (0-5); URINE NITRITE NEG (NEG); URINE SPECIFIC GRAVITY 1.025 (1.000-1.030); UROBILINOGEN NEG (NEG)
[2016-11-08 14:07] LABS: MANUAL MICROSCOPIC REQUIRED? NO; REVIEW REQ? NO
--- NOTE | 2016-11-08 14:39 | Pharmacy Progress Note ---
Pharmacy Abx Initial Consult Date of Service Nov 08, 2016. Pharmacy Dosing Scope Date of Consult: 11/08/16 Consultation requested by: Dr. Carpio and Dr Case Pharmacy is consulted to initiate Vancomycin IV/ Clindamycin PO dosing therapy, order appropriate labs and adjust drug dose/frequency. Subjective The patient is a 56 year old male admitted on Nov 08, 2016 at 03:26 with possible sepsis/aspiration pneumonia. Objective Height (Feet): 5 Height (Inches): 11.00 Weight (Kilograms): 116.600 Vital Signs (Past 12Hrs) Vital Signs Past 12 Hours Date Time Temp Pulse Resp B/P (MAP) Pulse Ox O2 Delivery O2 Flow Rate FiO2 11/08/16 14:13 99 16 93 Room Air 11/08/16 08:47 36.7 85 17 110/67 (81) 96 Room Air 11/08/16 08:00 Room Air 11/08/16 07:30 89 16 95 Room Air 11/08/16 05:06 36.7 96 20 126/83 92 Room Air 11/08/16 03:39 89 18 95 11/08/16 03:31 134/84 11/08/16 03:24 91 22 95 11/08/16 03:09 95 20 94 11/08/16 03:04 98 24 94 11/08/16 03:01 119/80 11/08/16 02:49 96 27 96 11/08/16 02:36 150/91 11/08/16 02:34 114 94 Lab Results (24Hrs) Item Value Date Time Lactic Acid Level 5.8 mmol/L *H 11/08/16 1150 Creatinine 0.95 mg/dl 11/08/16 0602 Lactic Acid Level 4.5 mmol/L *H 11/08/16 0602 Creatinine 1.20 mg/dl 11/08/16 0055 Est Creatinine Clear Calc Drug Dose 86.6 ml/min 11/08/16 0055 Est Creatinine Clear Calc Drug Dose 110.1 ml/min 11/08/16 0602 Laboratory Tests (24 Hours) Test 11/08/16 00:55 11/08/16 02:40 11/08/16 12:36 White Blood Count 19.61 K/uL (4.8-10.8) H Red Blood Count 4.90 M/uL (4.7-6.1) Hemoglobin 14.4 g/dL (14.0-18.0) Hematocrit 43.6 % (42-52) Mean Corpuscular Volume 89.0 fL (80-100) Mean Corpuscular Hemoglobin 29.4 pg (25-34) Mean Corpuscular Hemoglobin Concent 33.0 g/dl (32-36) Platelet Count 289 K/uL (130-400) Mean Platelet Volume 11.5 fL (7.4-10.4) H Neutrophils (%) (Auto) 60.0 % Lymphocytes (%) (Auto) 28.9 % Monocytes (%) (Auto) 9.6 % Eosinophils (%) (Auto) 0.7 % Basophils (%) (Auto) 0.2 % Neutrophils # (Auto) 11.77 K/uL (1.4-6.5) H Lymphocytes # (Auto) 5.67 K/uL (1.2-3.4) H Monocytes # (Auto) 1.88 K/uL (0.11-0.59) H Eosinophils # (Auto) 0.14 K/uL (0-0.5) Basophils # (Auto) 0.04 K/uL (0-0.2) Total Creatine Kinase 67 U/L (39-308) Procalcitonin < 0.05 ng/ml (0-0.5) Lactic Acid Level 6.2 mmol/L (0.4-2.0) *H Micro Results Date/Time Source Procedure Growth Status 11/08/16 01:03 Blood Blood Culture Pending Received 11/08/16 00:55 Blood Blood Culture Pending Received 11/08/16 07:50 Sputum Expectorated Sputum Gram Stain - Final Resulted 11/08/16 07:50 Sputum Expectorated Sputum Sputum Culture Pending Resulted Assessment & Plan Assessment 56 year old male with possible sepsis/aspiration pneumonia starting anaerobic and gram positive coverage with PO clindamycin/IV Vancomycin. Lactic acid elevated x 3 since admission. Patient with BMI 35.9 kg/m2 thus will be aware of potential for Vancomycin accumulation. Of note, IV Vancomycin ordered for "empiric" coverage x 48 hours only. Plan PO Clindamycin/IV Vancomycin for treatment of possible sepsis secondary to aspiration pneumonia Vancomycin IV * Loading dose: 2300 mg (20 mg/kg) received in the ED at ~0220 hrs * Maintenance dose: 1750mg IV (15 mg/kg) every 10 hours * Goal trough level for sepsis/pneumonia: 15 to 20 mcg/mL * Trough level ordered for 11/10/16 just prior to the 0630 hours dose * A less than traditional dose and/or extended dosing interval has/have been selected due to likelihood of drug accumulation in obese patient/patient with h/ o CKD. Clindamycin * Continue 300mg PO q6 hours as ordered Pharmacy will continue to follow and will adjust dose/frequency as necessary. Thank you.
[2016-11-08] MEDS: VANCOMYCIN INJ 1,750 MG in SODIUM CHLORIDE 0.9% 500ML 500 ML IV SCH (15:21)
--- NOTE | 2016-11-08 15:29 | DIAGNOSTIC IMAGING REPORT ---
THORACIC SPINE 3 VIEWS ROUTINE CLINICAL HISTORY: 56 years-old Male presenting with back pain. TECHNIQUE: Frontal view of the thoracic spine and lateral views of the thoracocervical and thoracolumbar junctions were obtained. COMPARISON: Comparison made to CT chest from 11/08/2016. FINDINGS: Normal thoracic kyphosis. Vertebral bodies maintain normal height and alignment. Intervertebral disc spaces preserved. Mild multilevel degenerative changes noted in the midthoracic region. Degenerative changes also noted of the lower cervical spine. No radiographic evidence of acute fracture or subluxation. Visualized portions of the thorax are normal. IMPRESSION: No radiographic evidence of acute osseous injury of the thoracic spine. Electronically signed by: Spike Terry M.D. 11/08/2016 3:28 PM Dictated Date/Time: 11/08/2016 3:26 PM
--- NOTE | 2016-11-08 15:31 | DIAGNOSTIC IMAGING REPORT ---
L-SPINE MIN 4 VIEWS ROUTINE CLINICAL HISTORY: 56 years-old Male presenting with back pain. TECHNIQUE: Frontal, bilateral oblique, lateral, and coned in lateral views of the lumbar spine were obtained. COMPARISON: Correlation made to CT of the abdomen and pelvis from 03/29/2014. FINDINGS: Normal lumbar lordosis. Vertebral bodies maintain normal height and alignment. Intervertebral disc spaces preserved. Anterior osteophytosis noted at multiple levels. No gross evidence of osseous neural foraminal narrowing. No radiographic evidence of acute fracture or subluxation. Moderate stool burden. IMPRESSION: No radiographic evidence of acute osseous injury of the lumbar spine. Electronically signed by: Spike Terry M.D. 11/08/2016 3:29 PM Dictated Date/Time: 11/08/2016 3:28 PM
[2016-11-08] MEDS: ATORVASTATIN 40 MG TAB PO SCH (19:31)
[2016-11-08] MEDS: LORATADINE 10 MG TAB PO SCH (19:31)
[2016-11-08] MEDS: INSULIN GLARGINE SOLOSTAR 100 UNITS/ML 3 ML PEN SC SCH (21:00)
[2016-11-08] MEDS ORDERED: INSULIN GLARGINE SOLOSTAR 100 UNITS/ML 3 ML PEN SC SCH (21:00)
[2016-11-09] VITALS (11 sets, daily range): BP systolic 105–169; BP diastolic 61–87; PULSE 73–108; TEMP 36.5–37.1; O2SAT 90–96
[2016-11-09] MEDS: VANCOMYCIN INJ 1,750 MG in SODIUM CHLORIDE 0.9% 500ML 500 ML IV SCH ×3 (00:50→21:02)
[2016-11-09] MEDS: LEVALBUTEROL 1.25MG/0.5ML NEB INH SCH ×2 (02:10→07:10)
[2016-11-09] MEDS: IPRATROPIUM BROMIDE NEB SOLN 0.02% 2.5 ML VIAL INH SCH ×2 (02:10→07:10)
[2016-11-09] MEDS: CLINDAMYCIN HCL 150 MG CAP PO SCH ×4 (05:20→21:07)
[2016-11-09] MEDS: SODIUM CHLORIDE 0.9% 1000ML 1,000 ML IV SCH ×2 (06:01→16:27)
[2016-11-09 06:07] LABS: BASO % 0.1 %; BASO ABS # 0.02 K/uL (0-0.2); COMPLETE YES; EOS % 0.1 %; HEMATOCRIT 40.2 % (42-52); IG% 0.7 %; LYMPH % 11.7 %; LYMPH ABS # 2.79 K/uL (1.2-3.4); MEAN CELL VOLUME 88.7 fL (80-100); MEAN CORPUSCULAR HEMOGLOBIN 28.7 pg (25-34); MEAN CORPUSCULAR HGB CONC 32.3 g/dl (32-36); MEAN PLATELET VOLUME 11.1 fL (7.4-10.4); MONO % 8.4 %; PLATELET COUNT 231 K/uL (130-400); RED BLOOD COUNT 4.53 M/uL (4.7-6.1); WHITE BLOOD COUNT 23.82 K/uL (4.8-10.8)
[2016-11-09 06:37] LABS: CREATININE 0.79 mg/dl (0.60-1.40)
[2016-11-09] MEDS: LACTOBACILLUS ACIDOPHILUS (FLORANEX) TAB PO SCH ×3 (07:51→17:59)
[2016-11-09] MEDS: GABAPENTIN 600 MG TAB PO SCH ×3 (07:51→21:03)
[2016-11-09] MEDS: BuPROPion SR 150 MG TABCR PO SCH ×2 (07:52→21:03)
[2016-11-09] MEDS: OXYCODONE HCL IR 5 MG TAB (IMMEDIATE RELEASE) PO PRN ×2 (07:52→21:03)
[2016-11-09] MEDS: CEROVITE ADV FORMULA TAB PO SCH (07:53)
[2016-11-09] MEDS: METHADONE HCL 10 MG TAB PO SCH ×2 (07:53→21:03)
[2016-11-09] MEDS: PANTOprazole SOD 40 MG TAB PO SCH (07:53)
[2016-11-09] MEDS: SUCRALFATE 1 GM TAB PO SCH ×4 (07:54→21:03)
[2016-11-09] MEDS: DILTIAZEM HCL 180 MG CAPCR PO SCH (07:54)
[2016-11-09] MEDS: ASPIRIN 81 MG ECTAB PO SCH (07:54)
[2016-11-09] MEDS: INSULIN ASPART 100 UNITS/ML 3 ML PEN SC SCH ×4 (07:56→21:06)
[2016-11-09] MEDS: INSULIN GLARGINE SOLOSTAR 100 UNITS/ML 3 ML PEN SC SCH ×2 (07:57→21:06)
[2016-11-09] MEDS: ENOXAPARIN 40 MG/0.4 ML SYR SQ SCH (07:58)
[2016-11-09 10:36] LABS: BASO % 0.1 %; BASO ABS # 0.02 K/uL (0-0.2); EOS % 0.1 %; HEMATOCRIT 42.8 % (42-52); IG% 0.6 %; MEAN CELL VOLUME 88.8 fL (80-100); MEAN CORPUSCULAR HEMOGLOBIN 29.3 pg (25-34); MEAN PLATELET VOLUME 11.1 fL (7.4-10.4); MONO % 8.1 %; NEUT % 81.1 %; PLATELET COUNT 251 K/uL (130-400); RED BLOOD COUNT 4.82 M/uL (4.7-6.1); WHITE BLOOD COUNT 22.05 K/uL (4.8-10.8)
[2016-11-09 10:41] LABS: COMPLETE YES; MEAN CORPUSCULAR HGB CONC 32.9 g/dl (32-36)
--- NOTE | 2016-11-09 18:10 | Progress Note ---
Internal Med Progress Note Date of Service: Nov 09, 2016. Provider Documentation: SUBJECTIVE: Patient denies chest pain or shortness of breath or malaise. examined while sitting comfortably by bedside. yesterday patient had multiple labs drawn because of uptrending lactic acid levels however lactic acid then trended down with IV fluids. patient reports some swelling of extremities OBJECTIVE: Exam: General- no acute distress Eyes- EOMI Neck-no JVD Lungs-clear to auscultation bilaterally Heart- regular rate, no murmur appreciated Abdomen- truncal obesity, nontender, + bowel sounds Extremities- some 1+ edema of the feet bilaterally Neuro- no focal deficits ASSESSMENT & PLAN: This is a 56 year old M with history of COPD and chronic prednisone use with ED presentation concerning for tachycardia and respiratory distress with labs concerning for elevated lactic acid when presented to the night time medical team. When reassess in the AM of his admission day, patient was seen to be comfortable, not in any respiratory distress, breathing on room air. When asked about his initial presenting symptoms, patient described of having a general malaise. His lactic acid on presentation to the ED was 6.09 then 3.1 then 4.5 then 5.8 then 6.2 then 4.9 (evening of 11/08/16) and finally much reduced to 2.6 on 11/09/16 after aggressive IV fluid hydration. Since hospital admission, patient has no documented fevers and his elevated white count may be due to previous prednisone use at home and solumedrol given in the ED for respiratory distress. He has been non-toxic appearing since being admitted to the hospital [facility] from the emergency room. However, given persistent elevated lactic acid on 11/08/16 there is concern whether patient may have been septic from infection. Chest CT on 11/08/16 did not find evidence of pneumonia. Blood culture from no growth to date and sputum culture on 11/08/16 with normal manuel. Patient initially had physical exam finding of back pain. X ray of the back have been negative. Patient declined MRI of his back because of claustrophobia. Currently receiving clindamycin with vancomycin to cover for possible septic source of unclear origin. If blood cultures continue to be negative by 11/10/16 and patient continues to be comfortable and afebrile, patient likely to be discharged home. nebulizer treatments prn hold steroids for now treat diabetes and hyperglycemia with insulin history of methadone use, continue with methadone continue with home dose aspirin and statin DVT prophylaxis with SCD/Lovenox Vital Signs: Date Time Temp Pulse Resp B/P (MAP) Pulse Ox O2 Delivery O2 Flow Rate FiO2 11/09/16 16:00 Room Air 11/09/16 15:30 37.1 86 18 137/81 (99) 92 Room Air 11/09/16 12:16 36.8 93 18 142/82 (102) 90 Room Air 11/09/16 08:00 Room Air 11/09/16 07:57 36.5 88 18 129/80 (96) 93 Room Air 11/09/16 07:10 74 16 91 Room Air 11/09/16 04:42 Room Air 11/09/16 04:04 36.6 97 19 105/65 (78) 92 Nasal Cannula 2.0 11/09/16 02:10 104 16 95 Nasal Cannula 2.0 11/09/16 00:13 36.9 108 19 111/61 (78) 95 Nasal Cannula 2.0 11/09/16 00:01 Room Air 11/08/16 20:00 36.4 113 20 150/67 (94) 95 11/08/16 19:53 100 16 92 Room Air Lab Results: Results Past 24 Hours Test 11/08/16 20:05 11/09/16 05:42 11/09/16 06:25 11/09/16 10:19 Range/Units Bedside Glucose 300 184 70-99 mg/dl White Blood Count 23.82 22.05 4.8-10.8 K/uL Red Blood Count 4.53 4.82 4.7-6.1 M/uL Hemoglobin 13.0 14.1 14.0-18.0 g/dL Hematocrit 40.2 42.8 42-52 % Mean Corpuscular Volume 88.7 88.8 80-100 fL Mean Corpuscular Hemoglobin 28.7 29.3 25-34 pg Mean Corpuscular Hemoglobin Concent 32.3 32.9 32-36 g/dl Platelet Count 231 251 130-400 K/uL Mean Platelet Volume 11.1 11.1 7.4-10.4 fL Neutrophils (%) (Auto) 79.0 81.1 % Lymphocytes (%) (Auto) 11.7 10.0 % Monocytes (%) (Auto) 8.4 8.1 % Eosinophils (%) (Auto) 0.1 0.1 % Basophils (%) (Auto) 0.1 0.1 % Neutrophils # (Auto) 18.83 17.89 1.4-6.5 K/uL Lymphocytes # (Auto) 2.79 2.20 1.2-3.4 K/uL Monocytes # (Auto) 2.00 1.79 0.11-0.59 K/uL Eosinophils # (Auto) 0.02 0.02 0-0.5 K/uL Basophils # (Auto) 0.02 0.02 0-0.2 K/uL RDW Standard Deviation 44.7 44.5 36.4-46.3 fL RDW Coefficient of Variation 13.7 13.6 11.5-14.5 % Immature Granulocyte % (Auto) 0.7 0.6 % Immature Granulocyte # (Auto) 0.16 0.13 0.00-0.02 K/uL Creatinine 0.79 0.60-1.40 mg/dl Est Creatinine Clear Calc Drug Dose 132.6 ml/min Estimated GFR () 114.7 Estimated GFR (Non- 99.0 Potassium Level 4.2 3.5-5.1 mmol/L Lactic Acid Level 2.6 0.4-2.0 mmol/L Test 11/09/16 11:24 Range/Units Bedside Glucose 202 70-99 mg/dl
[2016-11-09] MEDS: ATORVASTATIN 40 MG TAB PO SCH (21:03)
[2016-11-09] MEDS: LORATADINE 10 MG TAB PO SCH (21:03)
[2016-11-09] MEDS: LEVALBUTEROL 1.25MG/0.5ML NEB INH PRN (22:21)
[2016-11-09] MEDS: IPRATROPIUM BROMIDE NEB SOLN 0.02% 2.5 ML VIAL INH PRN (22:21)
[2016-11-09] MEDS ORDERED: COUGH DROP (SUGAR FREE) LOZ 24 LOZ/1 BOX PO PRN (23:45)
[2016-11-10] MEDS ORDERED: NURSING DECISION MEDICATION ORDER SCH
[2016-11-10 04:00] VITALS: BP 117/75; PULSE 84; TEMP 36.8; O2SAT 93
[2016-11-10] MEDS: CLINDAMYCIN HCL 150 MG CAP PO SCH ×2 (04:06→10:00)
[2016-11-10] MEDS ORDERED: VANCOMYCIN TROUGH SCH (06:00)
[2016-11-10 06:35] LABS: BASO % 0.2 %; BASO ABS # 0.03 K/uL (0-0.2); COMPLETE YES; EOS % 0.8 %; HEMATOCRIT 41.3 % (42-52); IG% 0.7 %; LYMPH % 30.6 %; LYMPH ABS # 4.64 K/uL (1.2-3.4); MEAN CORPUSCULAR HEMOGLOBIN 28.3 pg (25-34); MEAN CORPUSCULAR HGB CONC 31.5 g/dl (32-36); MONO % 9.4 %; NEUT % 58.3 %; PLATELET COUNT 221 K/uL (130-400); RED BLOOD COUNT 4.59 M/uL (4.7-6.1); WHITE BLOOD COUNT 15.14 K/uL (4.8-10.8)
[2016-11-10] MEDS: SUCRALFATE 1 GM TAB PO SCH ×2 (06:46→12:06)
[2016-11-10] MEDS: VANCOMYCIN INJ 1,750 MG in SODIUM CHLORIDE 0.9% 500ML 500 ML IV SCH (06:46)
[2016-11-10] MEDS: INSULIN ASPART 100 UNITS/ML 3 ML PEN SC SCH ×2 (07:00→11:44)
[2016-11-10 07:09] VITALS: PULSE 79; O2SAT 94
[2016-11-10] MEDS: IPRATROPIUM BROMIDE NEB SOLN 0.02% 2.5 ML VIAL INH PRN (07:09)
[2016-11-10] MEDS: LEVALBUTEROL 1.25MG/0.5ML NEB INH PRN (07:10)
[2016-11-10 07:20] LABS: CREATININE 0.77 mg/dl (0.60-1.40)
[2016-11-10 07:51] VITALS: BP 129/79; PULSE 73; TEMP 36.7; O2SAT 92
[2016-11-10] MEDS: BuPROPion SR 150 MG TABCR PO SCH (07:57)
[2016-11-10] MEDS: PANTOprazole SOD 40 MG TAB PO SCH (07:58)
[2016-11-10] MEDS: ASPIRIN 81 MG ECTAB PO SCH (07:58)
[2016-11-10] MEDS: CEROVITE ADV FORMULA TAB PO SCH (07:58)
[2016-11-10] MEDS: DILTIAZEM HCL 180 MG CAPCR PO SCH (07:58)
[2016-11-10] MEDS: LACTOBACILLUS ACIDOPHILUS (FLORANEX) TAB PO SCH ×2 (07:59→12:06)
[2016-11-10] MEDS: GABAPENTIN 600 MG TAB PO SCH ×2 (07:59→14:33)
[2016-11-10] MEDS: INSULIN GLARGINE SOLOSTAR 100 UNITS/ML 3 ML PEN SC SCH (08:00)
[2016-11-10] MEDS: METHADONE HCL 10 MG TAB PO SCH (08:01)
[2016-11-10] MEDS: OXYCODONE HCL IR 5 MG TAB (IMMEDIATE RELEASE) PO PRN (08:04)
[2016-11-10] MEDS: ENOXAPARIN 40 MG/0.4 ML SYR SQ SCH (09:00)
[2016-11-10 12:05] VITALS: BP 158/83; PULSE 92; TEMP 36.6; O2SAT 95
--- NOTE | 2016-11-10 16:14 | Progress Note ---
Internal Med Progress Note Date of Service: Nov 10, 2016. Provider Documentation: SUBJECTIVE: Patient denies chest pain or shortness of breath or malaise OBJECTIVE: Exam: General- no acute distress Eyes- EOMI Neck-no JVD Lungs-clear to auscultation bilaterally Heart- regular rate, no murmur appreciated Abdomen- truncal obesity, nontender, + bowel sounds Extremities- some 1+ edema of the feet bilaterally from previous IV fluids Neuro- no focal deficits ASSESSMENT & PLAN: This is a 56 year old M with history of COPD and chronic prednisone use with ED presentation concerning for tachycardia and respiratory distress with labs concerning for elevated lactic acid when presented to the night time medical team. When reassess in the AM of his admission day, patient was seen to be comfortable, not in any respiratory distress, breathing on room air. When asked about his initial presenting symptoms, patient described of having a general malaise. His lactic acid on presentation to the ED was 6.09 then 3.1 then 4.5 then 5.8 then 6.2 then 4.9 (evening of 11/08/16) and finally much reduced to 2.6 on 11/09/16 after aggressive IV fluid hydration. Initially given in the ED Vancomycin, Levaquin for possible sepsis then switched to vancomycin and clindamycin because unclear whether infectious source above the diaphragm or below the diaphragm. Since hospital admission, patient has no documented fevers and his elevated white count may be due to previous prednisone use at home and solumedrol given in the ED for respiratory distress. He has been non-toxic appearing since being admitted to the hospital [facility] from the emergency room. However, given persistent elevated lactic acid on 11/08/16 there is concern whether patient may have been septic from infection. Chest CT on 11/08/16 did not find evidence of pneumonia. Blood culture from 11/08/16 no growth to date and sputum culture on 11/08/16 with normal manuel. Patient initially had physical exam finding of back pain. X ray of the back have been negative. Patient declined MRI of his back because of claustrophobia. Blood cultures continue to be negative by 11/10/16 and patient continues to be comfortable and afebrile. Will stop IV antibiotics. Patient to be discharged with azithromycin for possible COPD exacerbation nebulizer treatments prn patient on chronic prednisone, continue at home treat diabetes and hyperglycemia with insulin history of methadone use, continue with methadone continue with home dose aspirin and statin DVT prophylaxis with SCD/Lovenox as inpatient [facility] be [facility] appointments Tuesday 11/14 at 1: 45 Pm or Wednesday 11/15 at 1:05 PM) Pain Management at [facility] 11/24 at 1:45 PM Vital Signs: Date Time Temp Pulse Resp B/P (MAP) Pulse Ox O2 Delivery O2 Flow Rate FiO2 11/10/16 12:05 36.6 92 16 158/83 (108) 95 11/10/16 12:00 Room Air 11/10/16 08:00 Room Air 11/10/16 07:51 36.7 73 16 129/79 (96) 92 Room Air 11/10/16 07:09 79 18 94 Room Air 11/10/16 04:00 36.8 84 18 117/75 (89) 93 Nasal Cannula 2.0 11/10/16 04:00 Room Air 2.0 11/09/16 23:59 Room Air 2.0 11/09/16 23:00 36.6 73 18 146/86 (106) 95 Room Air 11/09/16 22:22 83 18 92 Room Air 11/09/16 20:00 96 Room Air 11/09/16 19:25 36.7 81 20 169/87 (114) 96 Room Air Lab Results: Results Past 24 Hours Test 11/09/16 20:54 11/10/16 06:13 11/10/16 11:11 Range/Units Bedside Glucose 228 144 70-99 mg/dl White Blood Count 15.14 4.8-10.8 K/uL Red Blood Count 4.59 4.7-6.1 M/uL Hemoglobin 13.0 14.0-18.0 g/dL Hematocrit 41.3 42-52 % Mean Corpuscular Volume 90.0 80-100 fL Mean Corpuscular Hemoglobin 28.3 25-34 pg Mean Corpuscular Hemoglobin Concent 31.5 32-36 g/dl Platelet Count 221 130-400 K/uL Mean Platelet Volume 11.0 7.4-10.4 fL Neutrophils (%) (Auto) 58.3 % Lymphocytes (%) (Auto) 30.6 % Monocytes (%) (Auto) 9.4 % Eosinophils (%) (Auto) 0.8 % Basophils (%) (Auto) 0.2 % Neutrophils # (Auto) 8.82 1.4-6.5 K/uL Lymphocytes # (Auto) 4.64 1.2-3.4 K/uL Monocytes # (Auto) 1.42 0.11-0.59 K/uL Eosinophils # (Auto) 0.12 0-0.5 K/uL Basophils # (Auto) 0.03 0-0.2 K/uL RDW Standard Deviation 45.1 36.4-46.3 fL RDW Coefficient of Variation 13.7 11.5-14.5 % Immature Granulocyte % (Auto) 0.7 % Immature Granulocyte # (Auto) 0.11 0.00-0.02 K/uL Creatinine 0.77 0.60-1.40 mg/dl Est Creatinine Clear Calc Drug Dose 137.3 ml/min Estimated GFR () 115.9 Estimated GFR (Non- 100.0 Vancomycin Level Trough 17.1 SEE COMMENT mcg/ml
[2016-11-10] MEDS ORDERED: ZTHM250 OR (16:31)
--- NOTE | 2016-11-10 16:35 | Discharge Instructions ---
Discharge Instructions Date of Service Nov 10, 2016. Admission Reason for Admission: Sepsis Discharge Discharge Diagnosis / Problem: COPD, was treated for sepsis without infectious source identified, DM Discharge Goals Goal(s): Improve function Activity Recommendations Activity Limitations: per Instructions/Follow-up section Lifting Limitations: until after follow-up appointment Exercise/Sports Limitations: until after follow-up appointment Shower/Bathe: no limitations Driving or Machine Use: no limitations . Instructions / Follow-Up Instructions / Follow-Up This is a 56 year old M with history of COPD and chronic prednisone use with ED presentation concerning for tachycardia and respiratory distress with labs concerning for elevated lactic acid when presented to the night time medical team. When reassess in the AM of his admission day, patient was seen to be comfortable, not in any respiratory distress, breathing on room air. When asked about his initial presenting symptoms, patient described of having a general malaise. His lactic acid on presentation to the ED was 6.09 then 3.1 then 4.5 then 5.8 then 6.2 then 4.9 (evening of 11/08/16) and finally much reduced to 2.6 on 11/09/16 after aggressive IV fluid hydration. Initially given in the ED Vancomycin, Levaquin for possible sepsis then switched to vancomycin and clindamycin because unclear whether infectious source above the diaphragm or below the diaphragm. Since hospital admission, patient has no documented fevers and his elevated white count may be due to previous prednisone use at home and solumedrol given in the ED for respiratory distress. He has been non-toxic appearing since being admitted to the hospital [facility] from the emergency room. However, given persistent elevated lactic acid on 11/08/16 there is concern whether patient may have been septic from infection. Chest CT on 11/08/16 did not find evidence of pneumonia. Blood culture from 11/08/16 no growth to date and sputum culture on 11/08/16 with normal manuel. Patient initially had physical exam finding of back pain. X ray of the back have been negative. Patient declined MRI of his back because of claustrophobia. Blood cultures continue to be negative by 11/10/16 and patient continues to be comfortable and afebrile. Will stop IV antibiotics. Patient to be discharged with azithromycin for possible COPD exacerbation nebulizer treatments prn patient on chronic prednisone, continue at home treat diabetes and hyperglycemia with insulin history of methadone use, continue with methadone continue with home dose aspirin and statin DVT prophylaxis with SCD/Lovenox as inpatient Patient to be [facility] appointments Tuesday 11/14 at 1: 45 Pm or Wednesday 11/15 at 1:05 PM) Pain Management at [facility] 11/24 at 1:45 PM Current Hospital Diet Patient's current hospital diet: Diabetes Type 2 Diet, Low Potassium Diet (2g K) Discharge Diet Recommended Diet: Diabetes Type 2 Diet Pending Studies Studies pending at discharge: no Laboratory Results Hemoglobin A1c Test 11/08/16 00:55 Range/Units Estimated Average Glucose 189 mg/dl Hemoglobin A1c 8.2 H 4.5-5.6 % Medical Emergencies . Who to Call and When: Medical Emergencies: If at any time you feel your situation is an emergency, please call 911 immediately. . Non-Emergent Contact Non-Emergency issues call your: Primary Care Provider . . "Provider Documentation" section prepared by Kelby Carpio. . VTE Core Measure Inpt VTE Proph given/why not?: SCD's
--- NOTE | 2016-11-10 16:37 | Discharge Summary ---
Discharge Summary Date of Service Nov 10, 2016. Discharge Summary Admission Date: Nov 08, 2016 at 03:26 Discharge Date: Nov 10, 2016 Discharge Disposition: Home Principal Diagnosis: COPD, was treated with antibiotics for sepsis without infectious source identified, DM, chronic prednisone use, methadone use Medication Reconciliation New Medications: Azithromycin (Azithromycin) 250 Mg Tab 250 MG OR DAILY for 5 Days, #5 TABS Continued Medications: Albuterol Sulf (Albuterol Sulfate) 100 Mg/20 Ml Nebu 5 MG INH Q4H PRN for Wheezing COMBINE WITH ATROVENT. Aspirin (Aspirin) 81 Mg Tab 81 MG PO DAILY Atorvastatin (Lipitor) 80 Mg Tab 80 MG PO HS, TAB Azelastine Hcl-Fluticasone Pro (Dymista) 1 Spr Spr 1 SPRY LILLI BID for 30 Days, #23 GM 3 Refills Bupropion (Wellbutrin Sr) 150 Mg Ertab 150 MG PO BID Diltiazem Hcl Coated Beads (Cardizem Cd) 180 Mg Cap 180 MG PO DAILY, CAP Ergocalciferol (Vitamin D 27497 Unit) 50,000 Unit Cap 96576 UNITS PO WK SUNDAYS Fluticasone Furoate-Vilanterol (Breo Ellipta 200-25 Mcg/INH) 1 Inh Inh 1 PUFF INH DAILY Fluticasone Propionate (Nasal) (Flonase Allergy Relief) 50 Mcg/Act Spr 2 SPRY LILLI DAILY Gabapentin (Neurontin) 600 Mg Tab 600 MG PO TID, TAB Glipizide (Glucotrol) 5 Mg Tab 5 MG PO DAILY PRN for WHEN USING PREDNISONE Glipizide Xl (Glucotrol Xl) 5 Mg Tab 5 MG PO QAM, TAB Home O2 Therapy (Oxygen) Gas 2 LITERS NA HS Insulin Glargine (Lantus Solostar) 100 Unit/Ml Inj 20 UNITS SC BID, PEN Insulin Glulisine (Apidra Solostar) 100 Units/Ml Inj Unknown Dose SC ACHS UP TO 60 UNITS PER SLIDING SCALE Ipratropium [place] (Atrovent 0.02% Soln) 2.5 Ml Nebu 2.5 ML INH Q6H PRN for Wheezing Ipratropium-Albuterol (Combivent Respimat) 1 Aer Aer 2 PUFFS INH Q4H PRN for SOB/Wheezing, INH Lisinopril (Lisinopril) 10 Mg Tab 10 MG PO DAILY Loratadine (Claritin) 10 Mg Tab 10 MG PO HS, TAB Lorazepam (Ativan) 1 Mg Tab 1 MG PO TID PRN for Anxiety Meclizine Hcl (Meclizine Hcl) 25 Mg Tab 225 MG PO TID PRN for Dizziness or Vertigo for 10 Days, #270 TAB Metformin Hcl (Glucophage) 1,000 Mg Tab 1000 MG PO BIDM Methadone Hcl (Dolophine) 10 Mg Tab 10 MG PO AMHS Methadone HCl (Methadone HCl) 10 Mg Tab 5 MG PO DAILY IN AFTERNOON STARTED 10/28/16 FOR 14 DAYS, THEN DOSE CHANGES TO 10 MG BID. Montelukast Sodium (Montelukast Sodium) 10 Mg Tab 1 TAB PO HS for 90 Days, TAB 3 Refills Ocuvite Preservision (Ocuvite Preservision) 1 Tab Tab 1 TAB PO DAILY, TAB Oxycodone Ir (Roxicodone Ir) 5 Mg Tab 15 MG PO TID PRN for Pain, TAB Pantoprazole (Protonix) 40 Mg Tab 40 MG PO QAM TAKE 30 MINUTES BEFORE THE FIRST MEAL OF THE DAY. Probiotic Product (Probiotic) 1 Cap Cap 1 CAP PO TIDM Saline ([place] Nasal [place]) 0.65 % Spr 2 SPRAYS LILLI DAILY PRN for congestion Sucralfate (Carafate) 1 Gm Tab 1 GM PO ACHS, TAB one pill as a slurry by mouth one half curtis before meals and at bedtime Umeclidinium [place] (Incruse Ellipta) 62.5 Mcg/Inh Inh 1 PUFF INH DAILY Admission Information HPI (per Admitting provider): Medical history significant for hypertension, COPD, chronic pain on narcotics, hyperlipidemia, DM2, insulin requiring. hx vasodepressor syncope as per records. hx fatty liver disease Recent confinement April 2015 for chest pain, syncope. A few days ago, patient noted cough symptoms, productive of ordoñez sputum after he coughed on a small metal object after eating egg noodles. Chest pain with coughing, usual low back pain, symptoms not responding to home breathing treatments. Denies abdominal pain. Transient diarrhea as per patient. Patient brought to the Emergency Room. Given Solu-Medrol, nebs, Vancomycin, Levaquin for possible sepsis, COPD exacerbation, Pulse ox noted to be low at home on 2 liters. The patient sent to the Emergency Room. MEDICAL HISTORY: As above. SURGERIES: Urologic procedures. HOME MEDICATIONS: Include atorvastatin, Glucotrol, metformin, OxyIR, methadone, glipizide, Protonix, Lantus, multivitamins, gabapentin, diltiazem lisinopril, meclizine,montelukast, fluticasone, albuterol, Ativan, sucralfate, bupropion, loratadine. ALLERGIES: ATENOLOL, AUGMENTIN, MORPHINE. FAMILY HISTORY: History of diabetes, asthma, heart disease. PERSONAL AND SOCIAL HISTORY: Nonsmoker, no chronic intake of alcoholic beverages, disabled. REVIEW OF SYSTEMS: As per HPI, all other ROS negative. PHYSICAL EXAMINATION: VITAL SIGNS: Blood pressure was noted to be 164/90 later 140/80, pulse rate 118 later 98, RR 24 later 18, temperature 36.8, sats 98 on 4L. GENERAL: Noted to be comfortable, no respiratory distress. Obese SKIN: Normal color. HEENT : [place] palpebral conjunctivae, dry buccal mucosa, nasal cannula in place NECK: Short. HEART: RRR LUNGS: Decreased breath sounds. no exp wheeze at time of exam. ABDOMEN: Some distention, nontender. NEUROLOGIC: No gross focality. LABORATORY DATA: Hemoglobin was noted to be 14.4, hematocrit 30, white cell 19, platelets 289. Sodium noted to be 130, potassium 4, chloride 90, CO2 30, BUN 16, creatinine 1.2, glucose 309 POC lactic acid 6, N procalcitonin vBG ph 7.41, pCO2 39 Hemoglobin A1c from May 2016 was 7.3. IMAGING DATA: Chest x-ray As per my interpretation, elevated hemidiaphragm. EKG as per my interpretation, rate 115, sinus tachycardia, some T-wave flattening in the lateral leads. ASSESSMENT: 1. Acute hypoxemic respiratory failure secondary to chronic obstructive pulmonary disease exacerbation secondary to possible aspiration pneumonitis marked clinical improvement after initial ER intervention. 2. sepsis secondary to above. 3. Hypertension, stable. 4. chronic diastolic dysfunction as per records, patient may be on the dry side 5. DM2, insulin requiring, reasonable control as of recent outpx HgA1c. Patient noted to be hyperglycemic in the Emergency Room after after steroid administration. 6. History of vasodepressor syncope as per records 7. chronic pain on narcotics Physical Exam (per Admitting): see above Hospital Course This is a 56 year old M with history of COPD and chronic prednisone use with ED presentation concerning for tachycardia and respiratory distress with labs concerning for elevated lactic acid when presented to the night time medical team. When reassess in the AM of his admission day, patient was seen to be comfortable, not in any respiratory distress, breathing on room air. When asked about his initial presenting symptoms, patient described of having a general malaise. His lactic acid on presentation to the ED was 6.09 then 3.1 then 4.5 then 5.8 then 6.2 then 4.9 (evening of 11/08/16) and finally much reduced to 2.6 on 11/09/16 after aggressive IV fluid hydration. Initially given in the ED Vancomycin, Levaquin for possible sepsis then switched to vancomycin and clindamycin because unclear whether infectious source above the diaphragm or below the diaphragm. Since hospital admission, patient has no documented fevers and his elevated white count may be due to previous prednisone use at home and solumedrol given in the ED for respiratory distress. He has been non-toxic appearing since being admitted to the hospital [facility] from the emergency room. However, given persistent elevated lactic acid on 11/08/16 there is concern whether patient may have been septic from infection. Chest CT on 11/08/16 did not find evidence of pneumonia. Blood culture from 11/08/16 no growth to date and sputum culture on 11/08/16 with normal manuel. Patient initially had physical exam finding of back pain. X ray of the back have been negative. Patient declined MRI of his back because of claustrophobia. Blood cultures continue to be negative by 11/10/16 and patient continues to be comfortable and afebrile. Will stop IV antibiotics. Patient to be discharged with azithromycin for possible COPD exacerbation nebulizer treatments prn patient on chronic prednisone, continue at home treat diabetes and hyperglycemia with insulin history of methadone use, continue with methadone continue with home dose aspirin and statin DVT prophylaxis with SCD/Lovenox as inpatient Patient to be [facility] appointments Tuesday 11/14 at 1: 45 Pm or Wednesday 11/15 at 1:05 PM) Pain Management at [facility] 11/24 at 1:45 PM Total time spent on discharge = This includes examination of the patient, discharge planning, medication reconciliation, and communication with other providers. Discharge Instructions Patient to be discharged with azithromycin for possible COPD exacerbation nebulizer treatments prn patient on chronic prednisone, continue at home treat diabetes and hyperglycemia with insulin history of methadone use, continue with methadone continue with home dose aspirin and statin DVT prophylaxis with SCD/Lovenox as inpatient Patient to be discharged with follow up to: [facility] Dr. Dean (2 available appointments Tuesday 11/14 at 1: 45 Pm or Wednesday 11/15 at 1:05 PM) Pain Management at [facility] 11/24 at 1:45 PM
[2016-11-10 16:41] VITALS: BP 158/83; PULSE 92; TEMP 36.6; O2SAT 95
[2016-11-10] MEDS ORDERED: PROM25TA9 PO (23:40)
== END 2016-11-10 16:45 | disposition home or self-care (01) | DRG 871 ==
LOC: C.EDB 00:26 → C.MS2W 03:26 → ENRESERV 03:31 → EDBEDREQSVC 03:31 → ENRESERV 15:03 → C.2T 15:38
PROVIDERS: ADMIT Hospitalist; ATTEND Hospitalist
DX: A41.9 Sepsis, unspecified organism (principal); J96.01 Acute respiratory failure with hypoxia; I50.32 Chronic diastolic (congestive) heart failure; J44.9 Chronic obstructive pulmonary disease, unspecified; E11.40 Type 2 diabetes mellitus with diabetic neuropathy, unspecified; I11.0 Hypertensive heart disease with heart failure; G89.29 Other chronic pain; R00.0 Tachycardia, unspecified; E78.5 Hyperlipidemia, unspecified; N40.0 Benign prostatic hyperplasia without lower urinary tract symptoms; R74.0 Nonspecific elevation of levels of transaminase and lactic acid dehydrogenase [LDH]; M50.90 Cervical disc disorder, unspecified, unspecified cervical region; K76.0 Fatty (change of) liver, not elsewhere classified; Z99.81 Dependence on supplemental oxygen; Z79.82 Long term (current) use of aspirin; Z86.79 Personal history of other diseases of the circulatory system; Z79.84 Long term (current) use of oral hypoglycemic drugs; Z79.891 Long term (current) use of opiate analgesic; Z79.899 Other long term (current) drug therapy; Z79.4 Long term (current) use of insulin; Z79.51 Long term (current) use of inhaled steroids; Z82.49 Family history of ischemic heart disease and other diseases of the circulatory system; Z82.5 Family history of asthma and other chronic lower respiratory diseases; Z83.3 Family history of diabetes mellitus

== ENCOUNTER 2016-11-10 21:30 | Emergency (ER) | payer OTHER ==
[~2016-11-10] VITALS: Ht 180.3 cm; Wt 107.0 kg
[~2016-11-10 21:30] MED LIST changes: -ALBUAER9 INH; +AZEL30SP NAE; -AZELASTINE HCL 0.1% NAE; -CLAR500T3 PO; +CRDCD/180 PO; -DILT-113 PO; -DOCU100C31 PO; -FLNIN NAE; -FLOVENT 220 MCG INH; +FLUT0.15 NAE; -FLUT1INH PO; +FLUT1INH7 INH; -GABA-113 PO; +GABA600T PO; +GLIP-171 PO; -GUAI1TAB55 PO; -INSU100I2 SQ; -LEVO-366 PO; +LISI-461 PO; -LISI5TAB PO; +MECL1TAB42 PO; +MTH10 PO; +MULT-190 PO; -PRED10TA PO; +PRVIN5 INH; -RANI150T3 PO; -SYMIN160 INH; +ZTHM250 OR
[2016-11-10] MEDS ORDERED: PROMETHAZINE HCL INJ 12.5 MG in SODIUM CHLORIDE 0.9% 50ML 50 ML IV STA (21:47)
[2016-11-10] MEDS ORDERED: SODIUM CHLORIDE 0.9% 1000ML 1,000 ML IV ONE (22:00)
[2016-11-10] MEDS ORDERED: HYDROmorphone INJ 1 MG/ML SYR IV ONE (22:00)
[2016-11-10] MEDS ORDERED: MECLIZINE HCL 25 MG TAB PO STA (22:06)
[2016-11-10 22:19] VITALS: TEMP 36.1; Ht 180.3 cm; Wt 107.0 kg
--- NOTE | 2016-11-10 22:30 | EMERGENCY ROOM VISIT NOTE ---
History First contact with patient: 21:34 Chief Complaint: FALL Stated Complaint: FALL/ HEAD PAIN History of Present Illness The patient is a 56 year old male who presents to the Emergency Room with complaints of vertigo and a fall prior to arrival. The patient has had vertigo for 20 years. He scrubs as a spinning sensation. He also is complaining of a headache and sensitivity to light. These all are typical symptoms. He reportedly fell landing on his head on the ground. There was no loss of consciousness. He does also complain of neck pain. He denies any chest pain or heart palpitations prior to his fall. He denies any shortness of breath. He took one dose of Ativan 1 mg prior to arrival. The patient was reportedly just discharged from the hospital today after being treated for a "infection." He says that his vertigo is typically brought on by stress. Review of Systems 10 system review performed and negative unless noted in HPI or below Past Medical/Surgical History Medical Problems: (1) Benign hypertension (2) Benign prostatic hyperplasia (3) Cervical disc disorder (4) Chronic obstructive lung disease (5) Chronic pain syndrome (6) Diabetes mellitus type 2 (7) Diabetic neuropathy (8) Dyslipidemia (9) Lithotripsy (10) Normal colonoscopy (11) Steatosis of liver (12) Vasodepressor syncope Family History Diabetes mellitus FH: asthma FH: heart disease (NE at age 45) Hypertension Social History Smoking Status: Never Smoker Alcohol Use: none Drug Use: none Marital Status: Housing Status: lives with family Occupation Status: disabled Current/Historical Medications Scheduled Aspirin (Aspirin), 81 MG PO DAILY Atorvastatin (Lipitor), 80 MG PO HS Azelastine Hcl-Fluticasone Pro (Dymista), 1 SPRY LILLI BID Azithromycin (Azithromycin), 250 MG OR DAILY Bupropion (Wellbutrin Sr), 150 MG PO BID Diltiazem Hcl Coated Beads (Cardizem Cd), 180 MG PO DAILY Ergocalciferol (Vitamin D 83169 Unit), 50,000 UNITS PO WK Fluticasone Furoate-Vilanterol (Breo Ellipta 200-25 Mcg/INH), 1 PUFF INH DAILY Fluticasone Propionate (Nasal) (Flonase Allergy Relief), 2 SPRY LILLI DAILY Gabapentin (Neurontin), 600 MG PO TID Glipizide Xl (Glucotrol Xl), 5 MG PO QAM Home O2 Therapy (Oxygen), 2 LITERS NA HS Insulin Glargine (Lantus Solostar), 20 UNITS SC BID Insulin Glulisine (Apidra Solostar), Unknown Dose SC ACHS Lisinopril (Lisinopril), 10 MG PO DAILY Loratadine (Claritin), 10 MG PO HS Metformin Hcl (Glucophage), 1,000 MG PO BIDM Methadone HCl (Methadone HCl), 5 MG PO DAILY IN AFTERNOON Methadone Hcl (Dolophine), 10 MG PO AMHS Montelukast Sodium (Montelukast Sodium), 1 TAB PO HS Ocuvite Preservision (Ocuvite Preservision), 1 TAB PO DAILY Pantoprazole (Protonix), 40 MG PO QAM Probiotic Product (Probiotic), 1 CAP PO TIDM Sucralfate (Carafate), 1 GM PO ACHS Umeclidinium [place] (Incruse Ellipta), 1 PUFF INH DAILY Scheduled PRN Albuterol Sulf (Albuterol Sulfate), 5 MG INH Q4H PRN for Wheezing Glipizide (Glucotrol), 5 MG PO DAILY PRN for WHEN USING PREDNISONE Ipratropium [place] (Atrovent 0.02% Soln), 2.5 ML INH Q6H PRN for Wheezing Ipratropium-Albuterol (Combivent Respimat), 2 PUFFS INH Q4H PRN for SOB/Wheezing Lorazepam (Ativan), 1 MG PO TID PRN for Anxiety Meclizine Hcl (Meclizine Hcl), 225 MG PO TID PRN for Dizziness or Vertigo Oxycodone Ir (Roxicodone Ir), 15 MG PO TID PRN for Pain Saline ([place] Nasal Magness), 2 SPRAYS LILLI DAILY PRN for congestion Physical Exam Vital Signs Date Time Temp Pulse Resp B/P (MAP) Pulse Ox O2 Delivery O2 Flow Rate FiO2 11/10/16 22:28 83 11/10/16 22:19 36.1 101 18 123/81 95 Room Air Physical Exam The exam is limited. The patient is not cooperative. VITALS: Vitals are noted on the nurse's note and reviewed by myself. Vital signs stable. GENERAL: 56-year-old obese male in moderate discomfort, SKIN: The skin was without rashes, erythema, edema, or bruising. T HEAD: Normocephalic atraumatic. EARS: External auditory canals clear, tympanic membranes pearly ordoñez without erythema or effusion bilaterally. EYES: Pupils equal round and reactive to light and accommodation. Conjunctivae without injection, sclerae without icterus. Extraocular movements intact. MOUTH: Mucous membranes slightly dry NECK: Cervical spine is tender to palpation. Range of motion is limited secondary to pain. HEART: Regular rate and rhythm without murmurs gallops or rubs. LUNGS: Clear to auscultation bilaterally without wheezes, rales or rhonchi. No accessory muscle use. ABDOMEN: Positive bowel sounds x 4.Soft, nontender, without organomegaly. No guarding or rebound tenderness. MUSCULOSKELETAL: No muscle atrophy, erythema, or edema noted. Strength 5/5 throughout. NEURO: Patient was alert and oriented to person place and time. Normal sensation to touch. No focal neurological deficits. Medical Decision & Procedures ER Provider Diagnostic Interpretation: Patient Name: KRISTI BHAKTA SR Unit Number: [id number] Dictated: 11/10/162239 Transcribed: 11/10/162239 PBS Printed Date/Time: [~ rep prt dt]/[~ rep prt tm] [~ rep ct labl] - [~ rep ct ivnm] [facility] [place] [address] Dictated: 11/10/162239 Transcribed: 11/10/162239 PBS Printed Date/Time: [~ rep prt dt]/[~ rep prt tm] [~ rep ct labl] - [~ rep ct ivnm] HEAD WITHOUT CONTRAST (CT) CLINICAL HISTORY: 56 years-old Male presenting with fell hit head vertigo. TECHNIQUE: Multidetector CT imaging of the head was performed without the use of intravenous contrast. IV contrast: None. A dose lowering technique was used consistent with the principles of ALARA (as low as reasonably achievable). COMPARISON: 02/19/2016. CT DOSE (mGy.cm): The estimated cumulative dose is 1192.91. FINDINGS: Systems Integration Engineer topogram: Unremarkable. Ventricles and sulci normal in size. Brain parenchyma normal in appearance with preserved ordoñez-white differentiation. No mass effect or midline shift. No hemorrhage or acute territorial infarct. No extra-axial fluid collection. Paranasal sinuses and mastoid air cells clear. Calvarium intact. IMPRESSION: 1. No acute intracranial pathology. Electronically signed by: Spike Terry M.D. 11/10/2016 10:42 PM Dictated Date/Time: 11/10/2016 10:40 PM The status of this report is Signed. Draft = Not yet reviewed or approved by Radiologist. Signed = Reviewed and approved by Radiologist. <AttendingPhy></AttendingPhy> <FamilyPhy>Lupe Dean M.D. (MEDICAL)</ FamilyPhy> <PrimaryPhy>Lupe Dean M.D. (MEDICAL)</PrimaryPhy> <UnitNumber> [id number]</UnitNumber> <VisitNumber>[id number]</VisitNumber> <PatientName> KRISTI BHAKTA SR</PatientName> <DateOfBirth>1960</DateOfBirth> < Location>[facility]</Location> <ServiceDate>11/10/16</ServiceDate> <MNE>ESINDI</MNE> <OrderingPhy>Lor Vaughn PA-C</OrderingPhy> <OrderingPhyMNE>f rep ord dr kraus </OrderingPhyMNE> <DictatingPhyMNE>f rep dict dr kraus</DictatingPhyMNE> < CCListMNE>f rep ct nayana</CCListMNE> <AdmittingPhyMNE>f pt admit dr kraus</ AdmittingPhyMNE> <AttendingPhyMNE>f pt attend dr kraus</AttendingPhyMNE> <ConsultingPhyMNE>f pt consult dr kraus</ConsultingPhyMNE> <FamilyPhyMNE>f pt fam dr kraus</FamilyPhyMNE> <OtherPhyMNE>f pt other dr kraus</OtherPhyMNE> < PrimaryPhyMNE>f pt prim care dr kraus</PrimaryPhyMNE> <ReferringPhyMNE>f pt referring dr kraus</ReferringPhyMNE> CERVICAL SPINE W/O CLINICAL HISTORY: 56 years-old Male presenting with neck pain s/p fall. TECHNIQUE: Multidetector CT of the cervical spine was performed without the use of intravenous contrast. IV contrast: None. A dose lowering technique was used consistent with the principles of ALARA (as low as reasonably achievable). COMPARISON: None. CT DOSE (mGy.cm): The estimated cumulative dose is 1192.91 mGy.cm. FINDINGS: Systems Integration Engineer topogram: Unremarkable. Straightening of normal cervical lordosis. Mild vertebral body height loss of C6. Remaining vertebral bodies essentially preserved. Intervertebral disc spaces preserved. Multilevel degenerative changes with disc osteophyte complexes noted at C4-5 through C6-7. Prominent posterior osteophytes at C4-5 and C5-C6 narrow the spinal canal. Disc osteophyte complexes and uncovertebral hypertrophy results in osseous neural foraminal narrowing on the right at C4-5 and on the left at C6-7. No acute fracture or subluxation. Surrounding soft tissues within normal limits. Lung apices essentially clear. IMPRESSION: No acute osseous injury of the cervical spine. Electronically signed by: Spike Terry M.D. 11/10/2016 10:48 PM Dictated Date/Time: 11/10/2016 10:43 PM The status of this report is Signed. Draft = Not yet reviewed or approved by Radiologist. Signed = Reviewed and approved by Radiologist. <AttendingPhy></AttendingPhy> <FamilyPhy>Lupe Dean M.D. (MEDICAL)</ FamilyPhy> <PrimaryPhy>Lupe Dean M.D. (MEDICAL)</PrimaryPhy> <UnitNumber> [id number]</UnitNumber> <VisitNumber>[id number]</VisitNumber> <PatientName> KRISTI BHAKTA SR</PatientName> <DateOfBirth>1960</DateOfBirth> < Location>[facility]</Location> <ServiceDate>11/10/16</ServiceDate> <MNE>ESINDI</MNE> <OrderingPhy>Lor Vaughn PA-C</OrderingPhy Laboratory Results 11/10/16 22:00 Red Blood Count 5.11, Mean Corpuscular Volume 87.5, Mean Corpuscular Hemoglobin 29.9, Mean Corpuscular Hemoglobin Concent 34.2, Mean Platelet Volume 11.5, Neutrophils (%) (Auto) 64.8, Lymphocytes (%) (Auto) 24.9, Monocytes (%) (Auto) 8.1, Eosinophils (%) (Auto) 1.1, Basophils (%) (Auto) 0.2, Neutrophils # (Auto) 11.03, Lymphocytes # (Auto) 4.23, Monocytes # (Auto) 1.37, Eosinophils # (Auto) 0.19, Basophils # (Auto) 0.04 11/10/16 22:00 Test 11/10/16 22:00 White Blood Count 17.01 K/uL (4.8-10.8) Red Blood Count 5.11 M/uL (4.7-6.1) Hemoglobin 15.3 g/dL (14.0-18.0) Hematocrit 44.7 % (42-52) Mean Corpuscular Volume 87.5 fL (80-100) Mean Corpuscular Hemoglobin 29.9 pg (25-34) Mean Corpuscular Hemoglobin Concent 34.2 g/dl (32-36) Platelet Count 253 K/uL (130-400) Mean Platelet Volume 11.5 fL (7.4-10.4) Neutrophils (%) (Auto) 64.8 % Lymphocytes (%) (Auto) 24.9 % Monocytes (%) (Auto) 8.1 % Eosinophils (%) (Auto) 1.1 % Basophils (%) (Auto) 0.2 % Neutrophils # (Auto) 11.03 K/uL (1.4-6.5) Lymphocytes # (Auto) 4.23 K/uL (1.2-3.4) Monocytes # (Auto) 1.37 K/uL (0.11-0.59) Eosinophils # (Auto) 0.19 K/uL (0-0.5) Basophils # (Auto) 0.04 K/uL (0-0.2) RDW Standard Deviation 43.2 fL (36.4-46.3) RDW Coefficient of Variation 13.5 % (11.5-14.5) Immature Granulocyte % (Auto) 0.9 % Immature Granulocyte # (Auto) 0.15 K/uL (0.00-0.02) Anion Gap 11.0 mmol/L (3-11) Est Creatinine Clear Calc Drug Dose 100.2 ml/min Estimated GFR () 95.7 Estimated GFR (Non- 82.6 BUN/Creatinine Ratio 15.0 (10-20) Calcium Level 9.4 mg/dl (8.5-10.1) Chemistry Specimen Hemolysis Medications Administered Medications (Trade) Dose Ordered Sig/Gio Route Start Time Stop Time Status Last Admin Dose Admin Sodium Chloride 1,000 ml @ 999 mls/hr Q1H1M ONCE IV 11/10/16 22:00 11/10/16 23:00 DC 11/10/16 22:27 999 MLS/HR Promethazine HCl 12.5 mg/Sodium Chloride 50.5 ml @ 204 mls/hr NOW STAT IV 11/10/16 21:47 11/10/16 22:01 DC 11/10/16 22:27 204 MLS/HR Hydromorphone HCl (Dilaudid Inj) 1 mg ONE ONCE IV 11/10/16 22:00 11/10/16 22:01 DC 11/10/16 22:26 1 MG Meclizine HCl (Antivert Tab) 25 mg NOW STAT PO 11/10/16 22:06 11/10/16 22:07 DC 11/10/16 22:26 25 MG ED Course Patient was seen and examined Vital signs including blood pressure were reviewed medications list was verified with patient Labs were obtained, and a saline lock was established The patient was given Dilaudid 1 mg IV and Phenergan 12.5 mg IV. He was given 1 dose of meclizine. He was hydrated with 1 L of normal saline. Imaging was performed and reviewed Upon reevaluation, the patient was feeling much better. Dizziness was much improved. Nausea was also improved. We discussed the results of his workup. He voiced understanding. The patient was given a home pack of Phenergan I reviewed discharge instructions the patient. They voiced understanding and had no further questions. Medical Decision Differential diagnosis: Vertigo, acute CVA, skull fracture, cervical spine injury, pulmonary embolus, cardiac arrhythmia, coronary artery disease, dehydration This patient is a 56-year-old male that was brought to the emergency department for sudden onset of vertigo and nausea causing him to fall spiking his head against the ground. There was no loss of consciousness. The patient did have a significant headache and neck pain, which prompted me to do imaging. No acute fractures or bleed was noted. He denied any chest pain or difficulty breathing. I do not suspect acute NE or PE. There is significant leukocytosis and his labs. The patient was just discharged from the hospital today with a COPD exacerbation. He is also on chronic prednisone. This likely explains the white count. The patient had very good symptomatic relief in the emergency department. He does have a history of chronic pain. He has pain medication at home. He was given a prescription for Phenergan to take for nausea. He also reports having meclizine at home. He was advised to follow-up with his primary care physician within the next 48 hours for recheck. He agrees to return in the emergency department with any worsening symptoms. This chart was completed in part utilizing [employer] Speech Voice Recognition software. Attempts were made to minimize the grammatical errors, random word insertions, pronoun errors and incomplete sentences. Any formal questions or concerns about the content, text or information contained within the body of this dictation should be directly addressed to the provider for clarification. Medication Reconcilliation Current Medication List: was personally reviewed by me Blood Pressure Screening Patient's blood pressure: Normal blood pressure Impression Primary Impression: Vertigo Additional Impression: Fall Departure Information Dispostion Home / Self-Care Condition GOOD Prescriptions Promethazine Hcl (Phenergan) 25 Mg Tab 25 MG PO Q6H Y for Nausea, #15 TAB Prov: Lor Vaughn PA-C 11/10/16 Referrals Lupe Dean M.D. (MEDICAL) (PCP) Patient Instructions ED Vertigo Unspecified, My [facility] Additional Instructions You were evaluated in the emergency department for dizziness and a fall. It is important to stay well-hydrated over the next 48 hours. Please take Phenergan every 6 hours as needed for nausea Please take your meclizine as prescribed Continue pain medication as prescribed Please follow-up with your primary care physician within the next 48 hours for a recheck Return to the emergency department if you have any of the following symptoms: -Severe dizziness -Persistent vomiting - Persistent diarrhea -Lethargy -Chest pain -Shortness of breath -Worsening pain -Slurred speech -Weakness on one side of your body Problem Qualifiers
[2016-11-10 22:39] LABS: BASO % 0.2 %; BASO ABS # 0.04 K/uL (0-0.2); COMPLETE YES; EOS % 1.1 %; HEMATOCRIT 44.7 % (42-52); IG% 0.9 %; LYMPH % 24.9 %; LYMPH ABS # 4.23 K/uL (1.2-3.4); MEAN CELL VOLUME 87.5 fL (80-100); MEAN CORPUSCULAR HEMOGLOBIN 29.9 pg (25-34); MEAN CORPUSCULAR HGB CONC 34.2 g/dl (32-36); MEAN PLATELET VOLUME 11.5 fL (7.4-10.4); MONO % 8.1 %; NEUT % 64.8 %; PLATELET COUNT 253 K/uL (130-400); RED BLOOD COUNT 5.11 M/uL (4.7-6.1); WHITE BLOOD COUNT 17.01 K/uL (4.8-10.8)
--- NOTE | 2016-11-10 22:44 | DIAGNOSTIC IMAGING REPORT ---
HEAD WITHOUT CONTRAST (CT) CLINICAL HISTORY: 56 years-old Male presenting with fell hit head vertigo. TECHNIQUE: Multidetector CT imaging of the head was performed without the use of intravenous contrast. IV contrast: None. A dose lowering technique was used consistent with the principles of ALARA (as low as reasonably achievable). COMPARISON: 02/19/2016. CT DOSE (mGy.cm): The estimated cumulative dose is 1192.91. FINDINGS: Perfect Binder Feeder Offbearer topogram: Unremarkable. Ventricles and sulci normal in size. Brain parenchyma normal in appearance with preserved ordoñez-white differentiation. No mass effect or midline shift. No hemorrhage or acute territorial infarct. No extra-axial fluid collection. Paranasal sinuses and mastoid air cells clear. Calvarium intact. IMPRESSION: 1. No acute intracranial pathology. Electronically signed by: Spike Terry M.D. 11/10/2016 10:42 PM Dictated Date/Time: 11/10/2016 10:40 PM
[2016-11-10 22:49] LABS: CALCIUM 9.4 mg/dl (8.5-10.1); POTASSIUM 3.9 mmol/L (3.5-5.1)
--- NOTE | 2016-11-10 22:49 | DIAGNOSTIC IMAGING REPORT ---
CERVICAL SPINE W/O CLINICAL HISTORY: 56 years-old Male presenting with neck pain s/p fall. TECHNIQUE: Multidetector CT of the cervical spine was performed without the use of intravenous contrast. IV contrast: None. A dose lowering technique was used consistent with the principles of ALARA (as low as reasonably achievable). COMPARISON: None. CT DOSE (mGy.cm): The estimated cumulative dose is 1192.91 mGy.cm. FINDINGS: Country Manager topogram: Unremarkable. Straightening of normal cervical lordosis. Mild vertebral body height loss of C6. Remaining vertebral bodies essentially preserved. Intervertebral disc spaces preserved. Multilevel degenerative changes with disc osteophyte complexes noted at C4-5 through C6-7. Prominent posterior osteophytes at C4-5 and C5-C6 narrow the spinal canal. Disc osteophyte complexes and uncovertebral hypertrophy results in osseous neural foraminal narrowing on the right at C4-5 and on the left at C6-7. No acute fracture or subluxation. Surrounding soft tissues within normal limits. Lung apices essentially clear. IMPRESSION: No acute osseous injury of the cervical spine. Electronically signed by: Spike Terry M.D. 11/10/2016 10:48 PM Dictated Date/Time: 11/10/2016 10:43 PM
[2016-11-10] MEDS ORDERED: PHENERGAN 25MG HOMEPACK PO ONE (23:30)
[2016-11-10] MEDS ORDERED: PROM25TA9 PO (23:40)
[2016-11-10 23:55] VITALS: BP 139/96; PULSE 80; O2SAT 92
== END 2016-11-10 23:55 | disposition home or self-care (01) ==
LOC: EDBD 21:30 → C.EDD 21:32
DX: R42 Dizziness and giddiness (principal); W19.XXXA Unspecified fall, initial encounter; I10 Essential (primary) hypertension; N40.0 Benign prostatic hyperplasia without lower urinary tract symptoms; J44.9 Chronic obstructive pulmonary disease, unspecified; E11.9 Type 2 diabetes mellitus without complications; E78.5 Hyperlipidemia, unspecified; Z83.3 Family history of diabetes mellitus; Z82.49 Family history of ischemic heart disease and other diseases of the circulatory system; Z82.5 Family history of asthma and other chronic lower respiratory diseases; Z79.82 Long term (current) use of aspirin; Z79.4 Long term (current) use of insulin

== ENCOUNTER 2016-11-16 03:38 | Emergency (ER) | payer OTHER ==
[~2016-11-16] VITALS: Ht 180.3 cm; Wt 112.7 kg
[~2016-11-16 03:38] MED LIST changes: +PROM25TA9 PO
[2016-11-16 03:43] VITALS: TEMP 37; Ht 180.3 cm; Wt 112.7 kg
[2016-11-16] MEDS ORDERED: ASPIRIN 324 MG CHEW PO STA (03:57)
[2016-11-16] MEDS ORDERED: SODIUM CHLORIDE 0.9% 1000ML 1,000 ML IV ONE (04:00)
[2016-11-16] MEDS ORDERED: NITROGLYCERIN OINT 2% 1GM PACKET EXT ONE (04:00)
[2016-11-16] MEDS ORDERED: ALBUT/IPRATROP 3MG/0.5MG NEB 3 ML VIAL INH ONE (04:00)
[2016-11-16 04:10] VITALS: O2SAT 94
[2016-11-16 04:13] LABS: BASO % 0.4 %; BASO ABS # 0.04 K/uL (0-0.2); COMPLETE YES; EOS % 3.2 %; HEMATOCRIT 45.7 % (42-52); IG% 0.5 %; LYMPH % 33.6 %; LYMPH ABS # 3.83 K/uL (1.2-3.4); MEAN CELL VOLUME 87.9 fL (80-100); MEAN PLATELET VOLUME 11.2 fL (7.4-10.4); MONO % 12.3 %; PLATELET COUNT 274 K/uL (130-400); WHITE BLOOD COUNT 11.39 K/uL (4.8-10.8)
[2016-11-16 04:24] LABS: INR 0.9 (0.9-1.1); PARTIAL THROMBOPLASTIN RATIO 1.1; PROTHROMBIN TIME (PATIENT) 10.1 SECONDS (9.0-12.0)
[2016-11-16 04:31] LABS: BUN/CREATININE RATIO 10.8 (10-20); CALCIUM 9.2 mg/dl (8.5-10.1); CREATININE 0.98 mg/dl (0.60-1.40); MAGNESIUM 1.8 mg/dl (1.8-2.4); POTASSIUM 4.2 mmol/L (3.5-5.1)
[2016-11-16 04:42] LABS: ALB/GLOB RATIO 0.9 (0.9-2); THYROID STIMULATING HORMONE 0.814 uIu/ml (0.300-4.500)
[2016-11-16 06:01] VITALS: PULSE 97; O2SAT 92
--- NOTE | 2016-11-16 06:39 | DIAGNOSTIC IMAGING REPORT ---
CHEST ONE VIEW PORTABLE HISTORY: 56 years-old Male SOB acute shortness of breath. Initial exam. COMPARISON: Chest radiograph 11/08/2016 TECHNIQUE: Portable upright AP view of the chest FINDINGS: Cardiac silhouette is upper limits of normal. Mild right hemidiaphragm elevation is again seen. There is no pneumothorax, pleural effusion or focal airspace consolidation. No overt pulmonary edema. The bones are grossly intact. IMPRESSION: No acute cardiopulmonary process. The above report was generated using voice recognition software. It may contain grammatical, syntax or spelling errors. Electronically signed by: Colton Whittaker M.D. 11/16/2016 6:38 AM Dictated Date/Time: 11/16/2016 6:37 AM
[2016-11-16 07:28] VITALS: BP 118/76
--- NOTE | 2016-11-17 01:01 | EMERGENCY ROOM VISIT NOTE ---
History First contact with patient: 03:49 Chief Complaint: RESPIRATORY PROBLEMS Stated Complaint: CAN'T BREATHE,TIRED,USED INHALER Nursing Triage Summary: pt c/o SOB and chest pain 4/10 for several hours. pt states he was here recently for sepsis and does not know where the infection was. silver pt called 911 to his home about 11pm. received a breathing treatment but refused transport to hospital. pt took 2 1mg Ativan around 11 and another 2 1mg Ativan an hour later for a total of 4mg po Ativan. pt used his rescur inhaler 3x in one hour. pt reports symptoms did not improve so he drove himself to the hospital. pt also rubbed horse liniment on him to try to relieve his symptoms. History of Present Illness The patient is a 56 year old male who presents to the Emergency Room with complaints of shortness of breath and right-sided chest pain that he rates a 4/ 10. The patient states that his symptoms began about 5 hours ago, and he did call EMS initially. He was given a breathing treatment at that time, and took 2 of his 1 mg Ativan. This seemed to help, but not completely resolve his symptoms. The patient took additional 2 mg Ativan about an hour later, and began using his rescue inhaler. As this did not completely relieve his symptoms he decided to drive himself to the emergency department for evaluation. The patient has a history of COPD and was recently admitted to the facility for pneumonia and sepsis. The patient has not had fever or chills. He does have upcoming appointments with cardiology and pulmonology. He is a diabetic, but states his sugars have been doing well today. He has had a stress test in the past, with his last dobutamine stress echo being about 16 months ago and normal. Review of Systems More than 10 systems were reviewed and otherwise negative with the exception of history of present illness. Past Medical/Surgical History Medical Problems: (1) Benign hypertension (2) Benign prostatic hyperplasia (3) Cervical disc disorder (4) Chronic obstructive lung disease (5) Chronic pain syndrome (6) Diabetes mellitus type 2 (7) Diabetic neuropathy (8) Dyslipidemia (9) Lithotripsy (10) Normal colonoscopy (11) Steatosis of liver (12) Vasodepressor syncope Family History Diabetes mellitus FH: asthma FH: heart disease (HI at age 45) Hypertension Social History Smoking Status: Never Smoker Alcohol Use: none Drug Use: none Marital Status: Housing Status: lives with family Occupation Status: disabled Current/Historical Medications Scheduled Aspirin (Aspirin), 81 MG PO DAILY Atorvastatin (Lipitor), 80 MG PO HS Azelastine Hcl-Fluticasone Pro (Dymista), 1 SPRY LILLI BID Azithromycin (Azithromycin), 250 MG OR DAILY Bupropion (Wellbutrin Sr), 150 MG PO BID Diltiazem Hcl Coated Beads (Cardizem Cd), 180 MG PO DAILY Ergocalciferol (Vitamin D 81701 Unit), 50,000 UNITS PO WK Fluticasone Furoate-Vilanterol (Breo Ellipta 200-25 Mcg/INH), 1 PUFF INH DAILY Fluticasone Propionate (Nasal) (Flonase Allergy Relief), 2 SPRY LILLI DAILY Gabapentin (Neurontin), 600 MG PO TID Glipizide Xl (Glucotrol Xl), 5 MG PO QAM Home O2 Therapy (Oxygen), 2 LITERS NA HS Insulin Glargine (Lantus Solostar), 20 UNITS SC BID Insulin Glulisine (Apidra Solostar), Unknown Dose SC ACHS Lisinopril (Lisinopril), 10 MG PO DAILY Loratadine (Claritin), 10 MG PO HS Metformin Hcl (Glucophage), 1,000 MG PO BIDM Methadone Hcl (Dolophine), 10 MG PO TID Montelukast Sodium (Montelukast Sodium), 1 TAB PO HS Ocuvite Preservision (Ocuvite Preservision), 1 TAB PO DAILY Pantoprazole (Protonix), 40 MG PO QAM Probiotic Product (Probiotic), 1 CAP PO TIDM Sucralfate (Carafate), 1 GM PO ACHS Umeclidinium [place] (Incruse Ellipta), 1 PUFF INH DAILY Scheduled PRN Albuterol Sulf (Albuterol Sulfate), 5 MG INH Q4H PRN for Wheezing Glipizide (Glucotrol), 5 MG PO DAILY PRN for WHEN USING PREDNISONE Ipratropium [place] (Atrovent 0.02% Soln), 2.5 ML INH Q6H PRN for Wheezing Ipratropium-Albuterol (Combivent Respimat), 2 PUFFS INH Q4H PRN for SOB/Wheezing Lorazepam (Ativan), 1 MG PO TID PRN for Anxiety Meclizine Hcl (Meclizine Hcl), 225 MG PO TID PRN for Dizziness or Vertigo Oxycodone Ir (Roxicodone Ir), 15 MG PO TID PRN for Pain Promethazine Hcl (Phenergan), 25 MG PO Q6H PRN for Nausea Saline (Cass Nasal [place]), 2 SPRAYS LILLI DAILY PRN for congestion Physical Exam Vital Signs Date Time Temp Pulse Resp B/P (MAP) Pulse Ox O2 Delivery O2 Flow Rate FiO2 11/16/16 07:28 118/76 11/16/16 06:01 97 18 127/72 92 Room Air 11/16/16 05:31 105 20 125/66 93 Room Air 11/16/16 05:01 105 22 119/82 94 Room Air 11/16/16 04:31 104 16 102/68 98 Nebulizer 8.0 11/16/16 04:10 94 Room Air 11/16/16 04:01 106 26 133/90 94 Nebulizer 8.0 11/16/16 04:00 92 Room Air 11/16/16 04:00 109 11/16/16 03:51 109 24 140/93 94 Room Air 11/16/16 03:43 37.0 228 26 135/88 95 Room Air Physical Exam VITALS: Vitals are noted on the nurse's note and reviewed by myself. Vital signs with tachycardia GENERAL: Very sedated-appearing white male who is in no acute distress. MOUTH: Mucous membranes moist. Tonsils are not enlarged. Pharynx without erythema, blood, or exudate. Uvula midline. Airway patent. NECK: Supple without nuchal rigidity. No lymphadenopathy. No thyromegaly. Cervical spine is nontender. HEART: Tachycardic rate and regular rhythm without murmur gallop or rub LUNGS: Clear to auscultation bilaterally without wheezes, rales or rhonchi. No retractions or accessory muscle use. ABDOMEN: Positive normal bowel sounds x 4. Soft, nontender, without masses or organomegaly. No guarding or rebound tenderness. MUSCULOSKELETAL: No muscle atrophy, erythema, or edema noted. Full range of motion without joint tenderness in all extremities. NEURO: Patient was alert and oriented to person place and time. CN II through XII grossly intact. Medical Decision & Procedures ER Provider Diagnostic Interpretation: CHEST ONE VIEW PORTABLE HISTORY: 56 years-old Male SOB acute shortness of breath. Initial exam. COMPARISON: Chest radiograph 11/08/2016 TECHNIQUE: Portable upright AP view of the chest FINDINGS: Cardiac silhouette is upper limits of normal. Mild right hemidiaphragm elevation is again seen. There is no pneumothorax, pleural effusion or focal airspace consolidation. No overt pulmonary edema. The bones are grossly intact. IMPRESSION: No acute cardiopulmonary process. Laboratory Results 11/16/16 04:00 Red Blood Count 5.20, Mean Corpuscular Volume 87.9, Mean Corpuscular Hemoglobin 29.0, Mean Corpuscular Hemoglobin Concent 33.0, Mean Platelet Volume 11.2, Neutrophils (%) (Auto) 50.0, Lymphocytes (%) (Auto) 33.6, Monocytes (%) (Auto) 12.3, Eosinophils (%) (Auto) 3.2, Basophils (%) (Auto) 0.4, Neutrophils # (Auto ) 5.69, Lymphocytes # (Auto) 3.83, Monocytes # (Auto) 1.40, Eosinophils # (Auto ) 0.37, Basophils # (Auto) 0.04 11/16/16 04:00 Test 11/16/16 04:00 11/16/16 05:29 White Blood Count 11.39 K/uL (4.8-10.8) Red Blood Count 5.20 M/uL (4.7-6.1) Hemoglobin 15.1 g/dL (14.0-18.0) Hematocrit 45.7 % (42-52) Mean Corpuscular Volume 87.9 fL (80-100) Mean Corpuscular Hemoglobin 29.0 pg (25-34) Mean Corpuscular Hemoglobin Concent 33.0 g/dl (32-36) Platelet Count 274 K/uL (130-400) Mean Platelet Volume 11.2 fL (7.4-10.4) Neutrophils (%) (Auto) 50.0 % Lymphocytes (%) (Auto) 33.6 % Monocytes (%) (Auto) 12.3 % Eosinophils (%) (Auto) 3.2 % Basophils (%) (Auto) 0.4 % Neutrophils # (Auto) 5.69 K/uL (1.4-6.5) Lymphocytes # (Auto) 3.83 K/uL (1.2-3.4) Monocytes # (Auto) 1.40 K/uL (0.11-0.59) Eosinophils # (Auto) 0.37 K/uL (0-0.5) Basophils # (Auto) 0.04 K/uL (0-0.2) RDW Standard Deviation 43.2 fL (36.4-46.3) RDW Coefficient of Variation 13.4 % (11.5-14.5) Immature Granulocyte % (Auto) 0.5 % Immature Granulocyte # (Auto) 0.06 K/uL (0.00-0.02) Prothrombin Time 10.1 SECONDS (9.0-12.0) Prothromb Time International Ratio 0.9 (0.9-1.1) Activated Partial Thromboplast Time 27.3 SECONDS (21.0-31.0) Partial Thromboplastin Ratio 1.1 Anion Gap 9.0 mmol/L (3-11) Est Creatinine Clear Calc Drug Dose 104.9 ml/min Estimated GFR () 98.1 Estimated GFR (Non- 84.6 BUN/Creatinine Ratio 10.8 (10-20) Calcium Level 9.2 mg/dl (8.5-10.1) Magnesium Level 1.8 mg/dl (1.8-2.4) Total Bilirubin 0.5 mg/dl (0.2-1) Aspartate Amino Transf (AST/SGOT) 14 U/L (15-37) Alanine Aminotransferase (ALT/SGPT) 56 U/L (12-78) Alkaline Phosphatase 82 U/L (45-117) Total Protein 7.2 gm/dl (6.4-8.2) Albumin 3.5 gm/dl (3.4-5.0) Globulin 3.7 gm/dl (2.5-4.0) Albumin/Globulin Ratio 0.9 (0.9-2) Lipase 134 U/L (73-393) Thyroid Stimulating Hormone (TSH) 0.814 uIu/ml (0.300-4.500) Bedside Troponin I < 0.030 ng/ml (0-0.045) Medications Administered Medications (Trade) Dose Ordered Sig/Gio Route Start Time Stop Time Status Last Admin Dose Admin Aspirin (Aspirin Chew) 324 mg NOW STAT PO 11/16/16 03:57 11/16/16 03:59 DC 11/16/16 04:09 324 MG Nitroglycerin (Nitroglycerin 2% Oint) 1 inch NOW ONCE EXT 11/16/16 04:00 11/16/16 04:01 DC 11/16/16 04:09 1 INCH Albuterol/ Ipratropium (Duoneb) 3 ml NOW ONCE INH 11/16/16 04:00 11/16/16 04:01 DC 11/16/16 04:09 3 ML Sodium Chloride 1,000 ml @ 999 mls/hr Q1H1M ONCE IV 11/16/16 04:00 11/16/16 05:00 DC 11/16/16 04:10 999 MLS/HR ECG Change: Sinus tachycardia Otherwise normal ECG When compared with ECG of 08-NOV-2016 00:41, No significant change was found Confirmed by ABDIRIZAK HULL ([id number]) on 11/16/2016 2:22:21 PM ED Course Physical exam and history were performed. Nursing notes, EMR, and Medication List were personally reviewed. Patient appears to have shortness of breath as well as some right-sided chest discomfort. On examination the patient is very sedated, and I feel this is likely to him taking 4 mg of Ativan prior to arrival. IV access was established and labs were obtained. The patient was hydrated medicated as above. I did elect to give him aspirin and Nitropaste as this could be cardiac in origin. EKG was performed and is without acute ST elevation. Patient was placed on a computer networking instructor adjunct. The patient's blood work is as above and was reviewed. He does not have a significant elevated white blood cell count, worsening anemia, bandemia, or significant electrolyte imbalance. Lipase and transaminases are nondiagnostic. Troponin 2 is negative. Chest x-ray does not show acute findings. She remained in normal sinus rhythm on the computer networking instructor adjunct. On evaluation the patient continued to be sedated and comfortable in the ER bed. His breathing subjectively improved after the breathing treatment. He did not seem to have significant improvement with symptoms after aspirin or nitroglycerin paste. I discussed the case with my attending physician, Dr. Mckeon, and overall we feel the patient is stable for discharge home. The patient does not appear to have a cardiac etiology of his symptoms. He has had a CT scan of his chest in the past week that did not show evidence of acute finding such as PE or pneumonia. I did not feel repeating this was necessary at this time. I discussed close interval follow-up with the patient, and did engage the [facility] hospitalist to help contact the office to arrange appropriate follow- up. The patient remained in stable condition for several hours until his was able to pick him up from the hospital. He was discharged under her care. The chart was completed utilizing [employer] Voice [employer]ognition Software. Grammatical errors, random word insertions, pronoun errors, and incomplete sentences are an occasional consequence of this system due to software limitations, ambient noise, and hardware issues. Any formal questions or concerns about the content, text, or information contained within the body of this dictation should be directly addressed to the provider for clarification. . Medical Decision Differential diagnosis includes, but is not limited to: Myocardial infarction, dysrhythmia, pericarditis, pneumothorax, aortic aneurysm/dissection, DVT/PE, anxiety, GERD, PUD, electrolyte imbalance, thyroid disorder, pneumonia, bronchitis, pancreatitis, and others Medication Reconcilliation Current Medication List: was personally reviewed by me Blood Pressure Screening Patient's blood pressure: Normal blood pressure Impression Primary Impression: COPD exacerbation Departure Information Dispostion Home / Self-Care Condition GOOD Forms HOME CARE DOCUMENTATION FORM, IMPORTANT VISIT INFORMATION Patient Instructions My [facility] Additional Instructions You were seen and evaluated today on an emergency basis only. This is not a substitute for, or an effort to provide, complete comprehensive medical care. It is not possible to recognize and treat all injuries or illnesses in a single emergency department visit. For this reason it is recommended that you followup with your primary care physician in the next 12-36 hours for recheck. Call the office in a few hours to make appointment. Continue home medications as previously directed. You are welcome to return to the emergency department anytime with new, worsening, or concerning symptoms.
== END 2016-11-16 07:31 | disposition home or self-care (01) ==
LOC: C.EDB 03:40
DX: J44.1 Chronic obstructive pulmonary disease with (acute) exacerbation (principal); I10 Essential (primary) hypertension; E11.40 Type 2 diabetes mellitus with diabetic neuropathy, unspecified; E78.5 Hyperlipidemia, unspecified; K76.0 Fatty (change of) liver, not elsewhere classified; Z79.82 Long term (current) use of aspirin; Z79.4 Long term (current) use of insulin; Z79.84 Long term (current) use of oral hypoglycemic drugs; Z79.899 Other long term (current) drug therapy

== ENCOUNTER 2016-11-17 23:54 | Emergency (ER) | payer OTHER ==
[~2016-11-17] VITALS: Ht 180.3 cm; Wt 114.6 kg
[2016-11-17 23:56] VITALS: TEMP 37.2; Ht 180.3 cm; Wt 114.6 kg
[2016-11-18] MEDS ORDERED: METHYLPREDNISOLONE 125 MG VIAL IV STA (00:25)
[2016-11-18] MEDS ORDERED: ALBUT/IPRATROP 3MG/0.5MG NEB 3 ML VIAL INH ONE (00:30)
[2016-11-18] MEDS ORDERED: SODIUM CHLORIDE 0.9% 1000ML 1,000 ML IV ONE (00:30)
[2016-11-18] MEDS ORDERED: NRN800 PO (00:55)
[2016-11-18] MEDS ORDERED: PROM25TA9 PO (00:55)
[2016-11-18 01:00] VITALS: O2SAT 98
[2016-11-18 01:05] LABS: BASO % 0.6 %; BASO ABS # 0.06 K/uL (0-0.2); COMPLETE YES; EOS % 2.9 %; HEMATOCRIT 43.3 % (42-52); IG% 0.3 %; LYMPH % 39.8 %; LYMPH ABS # 4.31 K/uL (1.2-3.4); MEAN CELL VOLUME 87.8 fL (80-100); MEAN PLATELET VOLUME 10.9 fL (7.4-10.4); MONO % 11.3 %; NEUT % 45.1 %; PLATELET COUNT 264 K/uL (130-400); RED BLOOD COUNT 4.93 M/uL (4.7-6.1); WHITE BLOOD COUNT 10.84 K/uL (4.8-10.8)
[2016-11-18 01:26] LABS: BUN/CREATININE RATIO 9.1 (10-20); POTASSIUM 3.9 mmol/L (3.5-5.1)
[2016-11-18 02:03] VITALS: BP 131/106; PULSE 100; O2SAT 98
--- NOTE | 2016-11-18 07:03 | DIAGNOSTIC IMAGING REPORT ---
CHEST 2 VIEWS ROUTINE CLINICAL HISTORY: 56 years-old Male presenting with SOB. TECHNIQUE: PA and lateral views of the chest were obtained. COMPARISON: 11/16/2016. FINDINGS: Cardiomediastinal silhouette normal. Lungs and pleural spaces clear. Prominent lateral costophrenic sulci without evidence of pneumothorax. Osseous structures normal. Upper abdomen normal. IMPRESSION: 1. No acute cardiopulmonary disease. Electronically signed by: Spike Terry M.D. 11/18/2016 7:01 AM Dictated Date/Time: 11/18/2016 7:00 AM
--- NOTE | 2016-11-18 23:10 | EMERGENCY ROOM VISIT NOTE ---
History First contact with patient: 00:10 Chief Complaint: RESPIRATORY PROBLEMS Stated Complaint: BREATHING DIFFICULTY Nursing Triage Summary: patient reports SOB in the last week History of Present Illness The patient is a 56 year old male who presents to the Emergency Room with complaints of ongoing and persistent shortness of breath for the past week. The patient has been seen multiple times at this facility with this complaints recently. He did have an admission for possible sepsis versus pneumonia recently, and has a known diagnosis of COPD. The patient last visit was essentially 24 hours ago, where workup was negative including troponin 2. The patient went to his primary care physician office earlier today, and they had lengthy discussions about COPD and the patient utilization of his Rescue Panchito. The patient evidently has increased stressors at home regarding custody of their grandchild, and the primary care physician did address this with the patient. The patient states that he was asleep tonight, and his woke him up because he "was breathing heavy". The patient was unable to follow asleep after this, and felt like he was having anxiety. He took a total of 4 mg Ativan , and after this did not help his symptoms, decided to come to the emergency department. His onset of symptoms was about one hour ago. The patient has not had fever or chills. He evidently is taking prednisone as part of his COPD Rescue Panchito. He rates his current discomfort a 9/10. Review of Systems More than 10 systems were reviewed and otherwise negative with the exception of history of present illness. Past Medical/Surgical History Medical Problems: (1) Benign hypertension (2) Benign prostatic hyperplasia (3) Cervical disc disorder (4) Chronic obstructive lung disease (5) Chronic pain syndrome (6) Diabetes mellitus type 2 (7) Diabetic neuropathy (8) Dyslipidemia (9) Lithotripsy (10) Normal colonoscopy (11) Steatosis of liver (12) Vasodepressor syncope Family History Diabetes mellitus FH: asthma FH: heart disease ([place] at age 45) Hypertension Social History Smoking Status: Never Smoker Alcohol Use: none Drug Use: none Marital Status: Housing Status: lives with family Occupation Status: disabled Current/Historical Medications Scheduled Aspirin (Aspirin), 81 MG PO DAILY Atorvastatin (Lipitor), 80 MG PO HS Azelastine Hcl-Fluticasone Pro (Dymista), 1 SPRY LILLI BID Bupropion (Wellbutrin Sr), 150 MG PO BID Diltiazem Hcl Coated Beads (Cardizem Cd), 180 MG PO DAILY Ergocalciferol (Vitamin D 46425 Unit), 50,000 UNITS PO WK Fluticasone Furoate-Vilanterol (Breo Ellipta 200-25 Mcg/INH), 1 PUFF INH DAILY Fluticasone Propionate (Nasal) (Flonase Allergy Relief), 2 SPRY LILLI DAILY Gabapentin (Gabapentin), 800 MG PO TID Glipizide Xl (Glucotrol Xl), 5 MG PO QAM Home O2 Therapy (Oxygen), 2 LITERS NA HS Insulin Glargine (Lantus Solostar), 20 UNITS SC BID Insulin Glulisine (Apidra Solostar), Unknown Dose SC ACHS Lisinopril (Lisinopril), 10 MG PO DAILY Loratadine (Claritin), 10 MG PO HS Metformin Hcl (Glucophage), 1,000 MG PO BIDM Methadone Hcl (Dolophine), 10 MG PO TID Montelukast Sodium (Montelukast Sodium), 1 TAB PO HS Ocuvite Preservision (Ocuvite Preservision), 1 TAB PO DAILY Pantoprazole (Protonix), 40 MG PO QAM Probiotic Product (Probiotic), 1 CAP PO TIDM Sucralfate (Carafate), 1 GM PO ACHS Umeclidinium [place]uck (Incruse Ellipta), 1 PUFF INH DAILY Scheduled PRN Albuterol Sulf (Albuterol Sulfate), 5 MG INH Q4H PRN for Wheezing Glipizide (Glucotrol), 5 MG PO DAILY PRN for WHEN USING PREDNISONE Ipratropium [place]tuck (Atrovent 0.02% Soln), 2.5 ML INH Q6H PRN for Wheezing Ipratropium-Albuterol (Combivent Respimat), 2 PUFFS INH Q4H PRN for SOB/Wheezing Lorazepam (Ativan), 1 MG PO TID PRN for Anxiety Meclizine Hcl (Meclizine Hcl), 225 MG PO TID PRN for Dizziness or Vertigo Oxycodone Ir (Roxicodone Ir), 15 MG PO TID PRN for Pain Promethazine Hcl (Phenergan), 25 MG PO Q6H PRN for Nausea Saline ([place] Nasal [place]), 2 SPRAYS LILLI DAILY PRN for congestion Physical Exam Vital Signs Date Time Temp Pulse Resp B/P (MAP) Pulse Ox O2 Delivery O2 Flow Rate FiO2 11/18/16 02:03 100 18 131/106 98 11/18/16 01:00 98 Room Air 11/18/16 00:59 103 11/17/16 23:56 37.2 102 20 166/94 95 Room Air Physical Exam VITALS: Vitals are noted on the nurse's note and reviewed by myself. Vital signs stable. GENERAL: Well-developed, well-nourished, white male, who appears sedated but not toxic HEART: Regular rate and rhythm without murmurs gallops or rubs. LUNGS: Clear to auscultation bilaterally without wheezes, rales or rhonchi. No retractions or accessory muscle use. ABDOMEN: Positive normal bowel sounds x 4. Soft, nontender, without masses or organomegaly. No guarding or rebound tenderness. MUSCULOSKELETAL: No muscle atrophy, erythema, or edema noted. Full range of motion without joint tenderness in all extremities. Medical Decision & Procedures ER Provider Diagnostic Interpretation: CHEST 2 VIEWS ROUTINE CLINICAL HISTORY: 56 years-old Male presenting with SOB. TECHNIQUE: PA and lateral views of the chest were obtained. COMPARISON: 11/16/2016. FINDINGS: Cardiomediastinal silhouette normal. Lungs and pleural spaces clear. Prominent lateral costophrenic sulci without evidence of pneumothorax. Osseous structures normal. Upper abdomen normal. IMPRESSION: 1. No acute cardiopulmonary disease. Laboratory Results 11/18/16 00:50 Red Blood Count 4.93, Mean Corpuscular Volume 87.8, Mean Corpuscular Hemoglobin 29.0, Mean Corpuscular Hemoglobin Concent 33.0, Mean Platelet Volume 10.9, Neutrophils (%) (Auto) 45.1, Lymphocytes (%) (Auto) 39.8, Monocytes (%) (Auto) 11.3, Eosinophils (%) (Auto) 2.9, Basophils (%) (Auto) 0.6, Neutrophils # (Auto ) 4.91, Lymphocytes # (Auto) 4.31, Monocytes # (Auto) 1.22, Eosinophils # (Auto ) 0.31, Basophils # (Auto) 0.06 11/18/16 00:50 Test 11/18/16 00:50 9/29/17 01:02 White Blood Count 10.84 K/uL (4.8-10.8) Red Blood Count 4.93 M/uL (4.7-6.1) Hemoglobin 14.3 g/dL (14.0-18.0) Hematocrit 43.3 % (42-52) Mean Corpuscular Volume 87.8 fL (80-100) Mean Corpuscular Hemoglobin 29.0 pg (25-34) Mean Corpuscular Hemoglobin Concent 33.0 g/dl (32-36) Platelet Count 264 K/uL (130-400) Mean Platelet Volume 10.9 fL (7.4-10.4) Neutrophils (%) (Auto) 45.1 % Lymphocytes (%) (Auto) 39.8 % Monocytes (%) (Auto) 11.3 % Eosinophils (%) (Auto) 2.9 % Basophils (%) (Auto) 0.6 % Neutrophils # (Auto) 4.91 K/uL (1.4-6.5) Lymphocytes # (Auto) 4.31 K/uL (1.2-3.4) Monocytes # (Auto) 1.22 K/uL (0.11-0.59) Eosinophils # (Auto) 0.31 K/uL (0-0.5) Basophils # (Auto) 0.06 K/uL (0-0.2) RDW Standard Deviation 43.4 fL (36.4-46.3) RDW Coefficient of Variation 13.5 % (11.5-14.5) Immature Granulocyte % (Auto) 0.3 % Immature Granulocyte # (Auto) 0.03 K/uL (0.00-0.02) Anion Gap 9.0 mmol/L (3-11) Est Creatinine Clear Calc Drug Dose 103.6 ml/min Estimated GFR () 95.7 Estimated GFR (Non- 82.6 BUN/Creatinine Ratio 9.1 (10-20) Calcium Level 10.0 mg/dl (8.5-10.1) Total Bilirubin 0.4 mg/dl (0.2-1) Aspartate Amino Transf (AST/SGOT) 15 U/L (15-37) Alanine Aminotransferase (ALT/SGPT) 65 U/L (12-78) Alkaline Phosphatase 77 U/L (45-117) Total Protein 6.9 gm/dl (6.4-8.2) Albumin 3.5 gm/dl (3.4-5.0) Globulin 3.4 gm/dl (2.5-4.0) Albumin/Globulin Ratio 1.0 (0.9-2) Bedside Troponin I < 0.030 ng/ml (0-0.045) Medications Administered Medications (Trade) Dose Ordered Sig/Gio Route Start Time Stop Time Status Last Admin Dose Admin Sodium Chloride 1,000 ml @ 999 mls/hr Q1H1M ONCE IV 11/18/16 00:30 11/18/16 01:30 DC 11/18/16 00:53 999 MLS/HR Methylprednisolone Sodium Succinate (Solu-Medrol IV) 125 mg NOW STAT IV 11/18/16 00:25 11/18/16 00:27 DC 11/18/16 00:53 125 MG Albuterol/ Ipratropium (Duoneb) 3 ml NOW ONCE INH 11/18/16 00:30 11/18/16 00:31 DC 11/18/16 00:52 3 ML ECG Change: Sinus tachycardia @[address] and T wave abnormality Abnormal ECG When compared with ECG of 16-NOV-2016 03:55, No significant change was found Confirmed by Willie Ryder ([id number]) on 11/18/2016 8:34:12 AM ED Course Physical exam and history were performed. Nursing notes, EMR, and Medication List were personally reviewed. Patient appears to have vague shortness of breath and intermittent chest pain symptoms. The patient has been seen several times recently with his complaint. IV access was established and labs were obtained. EKG was performed and is as above. Does not show evidence of acute ST elevation or ischemia and is unchanged from previous. Chest x-ray was performed the patient was placed on a quality assurance monitor. He was hydrated with normal saline. The patient does appear sedated after taking 4 mg of Ativan prehospital, and additional intervention for anxiety symptoms was deferred. He was given a DuoNeb and Solu-Medrol here in the department. The patient's blood work is as above and was reviewed. He has a chronically mildly, but not significantly elevated, white blood cell count, worsening anemia , bandemia, or gross electrolyte imbalance. Troponin 1 is negative. Lipase and transaminases are nondiagnostic. Chest x-ray does not show acute process. The patient was in normal sinus rhythm on the quality assurance monitor. I had a lengthy discussion with the patient regarding his care. The patient admits that many of his symptoms feel like anxiety or panic related symptoms. He is taking large doses of Ativan, and this is not significant improvement in his symptoms. At this time I do not suspect that he is having acute coronary episode or a need to have admission to the facility. The patient needs continued care through both his primary care physician and psychiatrist. I suspect that many of his symptoms are related to stressors secondary to his home life. There is also a matter of his waking him from sleep, which also seems to have exacerbated his symptoms. The patient certainly could have some level of apnea, but again this is best evaluated through the PCPs office. The patient was certainly invited back to the ER with any new, worsening, or concerning symptoms. He is to continue his rescue pack as prescribed. He was otherwise pleased with plan of care and rated his discomfort a 1/10 at time of departure. The chart was completed utilizing [employer] Speech Voice Recognition Software. Grammatical errors, random word insertions, pronoun errors, and incomplete sentences are an occasional consequence of this system due to software limitations, ambient noise, and hardware issues. Any formal questions or concerns about the content, text, or information contained within the body of this dictation should be directly addressed to the provider for clarification. . Medical Decision Differential diagnosis includes, but is not limited to: Myocardial infarction, dysrhythmia, pericarditis, pneumothorax, aortic aneurysm/dissection, DVT/PE, anxiety, GERD, PUD, electrolyte imbalance, thyroid disorder, pneumonia, bronchitis, pancreatitis, and others Blood Pressure Screening Patient's blood pressure: Elevated blood pressure Blood pressure disposition: Referred to PCP Impression Primary Impression: COPD exacerbation Additional Impression: Anxiety Departure Information Dispostion Home / Self-Care Condition GOOD Forms HOME CARE DOCUMENTATION FORM, IMPORTANT VISIT INFORMATION Patient Instructions My [facility] Additional Instructions You were seen and evaluated today on an emergency basis only. This is not a substitute for, or an effort to provide, complete comprehensive medical care. It is not possible to recognize and treat all injuries or illnesses in a single emergency department visit. For this reason it is recommended that you followup with your primary care physician for ongoing care and evaluation. Continue medications as prescribed, including your Rescue Panchito at home. You are welcome to return to the emergency department anytime with new, worsening, or concerning symptoms. Problem Qualifiers
== END 2016-11-18 02:05 | disposition home or self-care (01) ==
LOC: C.EDB 23:55 → C.EDC 11-18 02:05
DX: J44.1 Chronic obstructive pulmonary disease with (acute) exacerbation (principal); F41.9 Anxiety disorder, unspecified; I10 Essential (primary) hypertension; N40.0 Benign prostatic hyperplasia without lower urinary tract symptoms; M50.90 Cervical disc disorder, unspecified, unspecified cervical region; E11.9 Type 2 diabetes mellitus without complications; E78.5 Hyperlipidemia, unspecified; K76.0 Fatty (change of) liver, not elsewhere classified; Z83.3 Family history of diabetes mellitus; Z83.6 Family history of other diseases of the respiratory system; Z82.49 Family history of ischemic heart disease and other diseases of the circulatory system; Z79.82 Long term (current) use of aspirin; Z79.4 Long term (current) use of insulin; Z79.899 Other long term (current) drug therapy

== ENCOUNTER 2018-06-12 06:20 | Inpatient (IN) ==
[2018-06-12] MEDS ORDERED: ONDANSETRON INJ 2 MG/ML 2 ML VIAL IV STA (06:52)
[2018-06-12] MEDS ORDERED: ALBUT/IPRATROP 3MG/0.5MG NEB 3 ML VIAL NEB STA (06:55)
[2018-06-12] MEDS ORDERED: ACETAMINOPHEN 325 MG TAB PO STA (06:55)
[2018-06-12] MEDS ORDERED: SODIUM CHLORIDE 0.9% 1000ML 1,000 ML IV SCH (07:00)
--- NOTE | 2018-06-12 07:07 | XRay Report ---
XR chest 1V portable HISTORY: 57 years-old Male cough, fever acute cough with fever COMPARISON: Chest radiographs 03/15/2018 TECHNIQUE: Portable AP view of the chest FINDINGS: Cardiac silhouette is enlarged, unchanged. Chronic right hemidiaphragmatic elevation. Scattered alveo lar opacities throughout the left lung including a 5.0 cm opacity of the left upper lobe. There are a dditional ill-defined opacities of the right midlung. No pneumothorax, large pleural effusion or over t pulmonary edema. Degenerative changes of the shoulders and spine. IMPRESSION: 1. Left greater than right bilateral alveolar opacities are suggestive of multifocal pneumonia. 2. Cardiomegaly. The above report was generated using voice recognition software. It may contain grammatical, syntax o r spelling errors. Electronically signed by: Colton Whittaker M.D. 06/12/2018 7:06 AM
[2018-06-12] MEDS ORDERED: LEVOFLOXACIN/D5W 750 MG/150 ML BAG IV STA (07:12)
[2018-06-12 07:27] LABS: Basophils # (auto) 0.03 K/uL (0-0.2); Basophils % (auto) 0.3 %; Eosinophils # (auto) 0.01 K/uL (0-0.5); Eosinophils % (auto) 0.1 %; Hematocrit (blood only) 47.6 % (42-52); Immature Granulocytes # (auto) 0.02 K/uL (0.00-0.02); Immature Granulocytes % (auto) 0.2 %; Lymphocytes # (auto) 2.18 K/uL (1.2-3.4); Lymphocytes % (auto) 20.2 %; Mean Corpuscular Hgb Conc 33.6 g/dL (32-36); Mean Corpuscular Volume 86.5 fL (80-100); Mean Platelet Volume 11.3 fL (7.4-10.4); Monocytes # (auto) 1.31 K/uL (0.11-0.59); Monocytes % (auto) 12.2 %; Neutrophils # (auto) 7.23 K/uL (1.4-6.5); Platelet Count 260 K/uL (130-400); RDW Coefficient of Variation 13.1 % (11.5-14.5); RDW Standard Deviation 41.4 fL (36.4-46.3); White Blood Count 10.78 K/uL (4.8-10.8)
[2018-06-12 07:42] LABS: Prothrombin Time 10.1 Seconds (9.0-12.0)
[2018-06-12 07:45] LABS: Alanine Aminotransferase 83 U/L (12-78); Albumin Level 3.6 gm/dl (3.4-5.0); Aspartate Aminotransferase 30 U/L (15-37); BUN Creatinine Ratio 15.3 (10-20); Blood Urea Nitrogen 16 mg/dl (7-18); Calcium 8.7 mg/dl (8.5-10.1); Carbon Dioxide 25 mmol/L (21-32); Chloride 101 mmol/L (98-107); Est GFR (African American) 88.6; Est GFR (Non-African American) 76.4; Glucose 151 mg/dl (70-99); Potassium 3.8 mmol/L (3.5-5.1); Sodium 134 mmol/L (136-145)
[2018-06-12 07:50] LABS: Albumin Globulin Ratio 0.9 (0.9-2); Alkaline Phosphatase 100 U/L (45-117); Bilirubin,Total 0.4 mg/dl (0.2-1); Globulin 4.1 gm/dl (2.5-4.0); Total Protein 7.7 gm/dl (6.4-8.2); Troponin I < 0.015 ng/ml (0-0.045)
[2018-06-12] MEDS ORDERED: SODIUM CHLORIDE 0.9% 1000ML 1,000 ML IV ONE (08:05)
[2018-06-12] MEDS ORDERED: OPTIRAY 320 125ml IV PRN (08:08)
--- NOTE | 2018-06-12 08:17 | CT Scan Report ---
CT angio chest PE protocol CT DOSE: 2157.19 mGy.cm HISTORY: 57 years-old Male with PE, CP, fever. Acute chest pain with fever TECHNIQUE: Multiple CTA images of the chest were obtained after the intravenous administration of 94 ml Optiray 320. Coronal and sagittal MIPS were obtained from the axial data set and were submitted f or review. All measurements were obtained according to NASCET criteria. A dose lowering technique wa s utilized adhering to the principles of ALARA. COMPARISON: 52 11/08/2016, chest radiograph 06/12/2018. FINDINGS: CTA: Heart is mildly enlarged. No pericardial effusion. Coronary arterial calcifications are noted. There is no thoracic aortic aneurysm or dissection. Patency of the imaged great vessels. The main pulmonary artery is dilated measuring up to 3.3 cm transversely. The pulmonary arterial tree is opacified to l evel the subsegmental branches and demonstrates no focal filling defects to suggest pulmonary thrombo embolic disease. CT CHEST: No focal thyroid nodule. Prominent subcarinal and bilateral hilar lymph nodes are seen measuring up t o 9 mm, likely reactive. No pneumothorax or pleural effusion. Small left [place]chdalek hernia. Mild bilat eral bronchial wall thickening. Patchy groundglass and consolidative opacities about the left upper l obe and lingula suggests pneumonia. The largest airspace consolidation measuring up to 6.0 x 3.1 cm w ithin the left upper lobe on image 214 series 4 with associated central air bronchograms. Mild linear subsegmental bibasilar atelectasis. The previously questioned opacities about the right lung are mos t suggestive of atelectasis/scarring. Nonspecific focal area of cylindrical bronchiectasis involves t he right upper lobe on image 260 series 4. Central airways appear patent. Duodenal diverticulum. Hepatic steatosis. No acute process of the imaged upper abdomen. Soft tissues are unremarkable. Bones appear to be intact. Degenerative changes of the shoulders and spine. IMPRESSION: 1. Multifocal alveolar and groundglass opacities of the left upper lobe and lingula are suggestive of pneumonia. Follow-up imaging to document resolution recommended. 2. Prominent subcarinal and bilateral hilar lymph nodes, likely reactive. 3. Mild bilateral bronchial wall thickening suggests associated bronchitis. 4. No acute aortic pathology or evidence of pulmonary thromboembolic disease. 5. Mild cardiomegaly. 6. Hepatic steatosis. The above report was generated using voice recognition software. It may contain grammatical, syntax o r spelling errors. Electronically signed by: Colton Whittaker M.D. 06/12/2018 8:16 AM
--- NOTE | 2018-06-12 08:28 | CT Scan Report ---
ABDOMEN AND PELVIS CT WITH IV CONTRAST HISTORY: Acute flulike symptoms with nausea and vomiting and acute generalized abdominal pain n/v/d, abd pain TECHNIQUE: Multiaxial CT images of the abdomen and pelvis were performed following the use of intrave nous contrast. A dose lowering technique was utilized adhering to the principles of ALARA. COMPARISON STUDY: CTA of the chest of same day, CTA 05/26/2014. FINDINGS: Partially imaged lobular opacities of the lingula with mild subsegmental bibasilar atelectasis. No pn eumatosis or pneumoperitoneum. Imaged inferior cardiac chambers are mildly enlarged. Coronary arteria l calcifications noted. Hepatic steatosis with otherwise unremarkable appearance of the liver. No evidence of cirrhosis or as cites. Indeterminate 4 mm hypodense lesion of the inferior right hepatic lobe, too small to character ize however statistically benign. The spleen, gallbladder, pancreas and adrenal glands are unremarkab le. Mild nonspecific bilateral perinephric stranding. Kidneys are otherwise unremarkable. Ureters and urinary bladder are within normal limits. Moderate mixed plaque formation of the aorta without aneur ysm. IVC is unremarkable. No adenopathy. Small to moderate duodenal diverticulum. No small bowel obstruction. No bowel wall thickening. Termin al ileum and appendix appear normal. No ascites or mesenteric inflammation. Small fat filled periumbi lical hernia, diastases 2.1 cm. Multilevel spondylitic spurring and facet arthropathy of the lumbar s pine. Bones appear to be intact. IMPRESSION: 1. No acute intra-abdominal or intrapelvic abnormality identified. Normal appendix. 2. Groundglass and alveolar opacities of the lingula compatible with pneumonia. 3. Hepatic steatosis. 4. Small fat filled periumbilical hernia. 5. Additional findings as above. Electronically signed by: Colton Whittaker M.D. 06/12/2018 8:27 AM
[2018-06-12] MEDS ORDERED: methylPREDNISolone 125 MG/2 ML VIAL IV STA (08:43)
--- NOTE | 2018-06-12 08:43 | Emergency Department Note ---
Entered by Loulou Nails acting as a scribe for History of Present Illness General Chief complaint: Illness Stated complaint: PAIN IN CHEST,DIZZY,EARS FEEL PLUGGED Time Seen by Provider: 06/12/18 06:39 Source: patient History of Present Illness Onset (ago): day(s) 3 Location: chest Pain Consistency: + other (persistent) Maximum Pain Intensity: 7 Relieved By: + medication (vicks vapor rub) Exacerbated By: + movement (exertion, sitting up, laying in certain positions) Associated symptoms: + chest pain, + cough, + fever/chills, + nausea/vomiting, + shortness of breath and + other (diarrhea, light-headed, nasal congestion, rhinorrhea, excessive thirst, mild abdominal pain) The patient is a 57 year old male that is presenting to the Emergency Room with complaints of a persistent illness that started 3 days ago. The patient reports that he has been experiencing light-headedness, fevers, chills and sweats, cough, difficulty breathing, rhinorrhea, nasal congestion, ear pains, excessive thirst, chest pain under his sternum, and mild abdominal pain. He states he has diarrhea and that he vomited this morning. He notes that he is seeing stars when he sits up and that he fell trying to get into the truck this morning on the way to the Emergency Room. He denies losing consciousness but states that he hit his upper left side. He notes that the pain is worse with movement and when laying in certain positions. He states that he is able to take his prescribed medications without issue. He states that Vicks Vapor Rub helps relieve some chest congestion. He reports that he wears 2L of O2 at night only. He states he is a never smoker. Home Medications Home Medications Medication Instructions Recorded Confirmed Type albuterol sulfate [Ventolin HFA] 2 puff INHALATION Q6H PRN 03/15/18 06/12/18 History aspirin [Aspirin Low Dose] 81 mg PO DAILY 03/15/18 06/12/18 History atorvastatin 80 mg PO HS 03/15/18 06/12/18 History bupropion HCl [Wellbutrin SR] 150 mg PO BID 03/15/18 06/12/18 History doxycycline monohydrate 100 mg PO DAILY PRN 03/15/18 06/12/18 History fluticasone propionate [Flonase 2 spray INTRANASAL DAILY 03/15/18 06/12/18 History Allergy Relief] gabapentin 800 mg PO TID 03/15/18 06/12/18 History glipizide 5 mg PO DAILY 03/15/18 06/12/18 History insulin glargine [Lantus Solostar 20 unit SUBCUT TID 03/15/18 06/12/18 History U-100 Insulin] insulin glulisine U-100 [Apidra 0 units SUBCUT ACHS 03/15/18 06/12/18 History SoloStar U-100 Insulin] ipratropium bromide 2.5 ml INHALATION Q6H PRN 03/15/18 06/12/18 History lisinopril 10 mg PO DAILY 03/15/18 06/12/18 History loperamide 2 mg PO Q3H PRN 03/15/18 06/12/18 History loratadine 10 mg PO HS 03/15/18 06/12/18 History lorazepam 1 mg PO TID PRN 03/15/18 06/12/18 History metformin 1,000 mg PO BID 03/15/18 06/12/18 History montelukast [Singulair] 10 mg PO PM 03/15/18 06/12/18 History oxycodone 15 mg PO Q8H PRN 03/15/18 06/12/18 History prednisone 10 mg PO DAILY PRN 03/15/18 06/12/18 History albuterol sulfate 1.25 mg INHALATION QID PRN 06/12/18 06/12/18 History diltiazem HCl 240 mg PO DAILY 06/12/18 06/12/18 History duloxetine [Cymbalta] 60 mg PO DAILY 06/12/18 06/12/18 History ergocalciferol (vitamin D2) 50,000 unit PO LANGSTON@0900 06/12/18 06/12/18 History uvmibmxremj-ljsvpqdep-ttaodfvv 1 inh INHALATION DAILY 06/12/18 06/12/18 History [Trelegy Ellipta] promethazine 25 mg PO Q6H PRN 06/12/18 06/12/18 History roflumilast 250 mcg PO DAILY 06/12/18 06/12/18 History tamsulosin 0.4 mg PO DAILY 06/12/18 06/12/18 History Allergies Allergy/AdvReac Type Severity Reaction Status Date / Time atenolol Allergy Severe DEPRESSION/ Verified 06/12/18 07:00 SUICIDAL amoxicillin Allergy Intermediate "SEVERE" Verified 06/12/18 07:00 DIARRHEA celecoxib Allergy Intermediate FLUID Verified 06/12/18 07:00 RETENTION-WT GAIN clavulanic acid Allergy Intermediate "SEVERE" Verified 06/12/18 07:00 DIARRHEA fentanyl Allergy Mild RASH Verified 06/12/18 07:00 fluoxetine AdvReac Severe HALLUCINATI Verified 06/12/18 07:00 ONS Past Med/Surg History Medical History High cholesterol (Chronic) Diabetes (Chronic) A-fib (Chronic) COPD (chronic obstructive pulmonary disease) (Chronic) Steatosis of liver (Chronic Unknown) Vasodepressor syncope (Chronic) Surgical History No pertinent past surgical history Family History Other FHx: heart disease Family history of diabetes mellitus Family history of high blood pressure Family history of kidney disease Social History Preferred Language: Bolivian Communication Ability: Effective Budget Specialist Required: No Beliefs That Will Affect Care: None marital status: Current Living Situation: Spouse current occupational status: unemployed and disabled Other Information That Helps Us Care for You: No Feels Safe at Home: Yes Safety Concerns: Feels Safe At This Time Smoking Status: Never smoker Tobacco Type: smokeless tobacco Do You Dip or Chew Tobacco: Yes (1 can q 2 days) Second Hand Exposure: No Tobacco Cessation Education Requested by Patient: No Hx Alcohol Use: No Hx Substance Use: No Review of Systems See HPI for pertinent positives & negatives. and A total of 10 systems reviewed and were otherwise negative Physical Exam Vital Signs Vital Signs - 24 hr 06/12/18 06:26 06/12/18 06:47 06/12/18 07:05 Temperature 37.6 C H Temperature Source Oral Sepsis Recent Fever Within 48 Hours Yes Sepsis Action Taken by Nursing No Action Required Pulse Rate 128 H 113 H 113 H Pulse Rate from SpO2 Sensor 114 H 113 H Respiratory Rate 20 28 H 30 H Respiratory Effort / Characteristics Respiratory Depth Respiratory Pattern Blood Pressure 141/76 H 142/95 H Blood Pressure Mean 97 110 Pulse Oximetry 93 92 92 Oxygen Delivery Method Room Air Room Air Room Air Oxygen Flow Rate 06/12/18 07:30 06/12/18 07:36 06/12/18 07:37 Temperature Temperature Source Sepsis Recent Fever Within 48 Hours Sepsis Action Taken by Nursing Pulse Rate 101 H 103 H 99 H Pulse Rate from SpO2 Sensor Respiratory Rate 16 15 13 Respiratory Effort / Characteristics Respiratory Depth Respiratory Pattern Blood Pressure 122/73 Blood Pressure Mean 89 Pulse Oximetry Oxygen Delivery Method Oxygen Flow Rate 06/12/18 08:11 06/12/18 08:12 06/12/18 08:30 Temperature Temperature Source Sepsis Recent Fever Within 48 Hours Sepsis Action Taken by Nursing Pulse Rate 103 H 101 H 100 H Pulse Rate from SpO2 Sensor Respiratory Rate 28 H 19 22 Respiratory Effort / Characteristics Respiratory Depth Respiratory Pattern Blood Pressure 121/75 134/81 Blood Pressure Mean 90 98 Pulse Oximetry Oxygen Delivery Method Oxygen Flow Rate 06/12/18 08:31 06/12/18 09:00 06/12/18 09:01 Temperature Temperature Source Sepsis Recent Fever Within 48 Hours Sepsis Action Taken by Nursing Pulse Rate 100 H 104 H 102 H Pulse Rate from SpO2 Sensor Respiratory Rate 21 20 22 Respiratory Effort / Characteristics Respiratory Depth Respiratory Pattern Blood Pressure 115/77 Blood Pressure Mean 89 Pulse Oximetry 95 Oxygen Delivery Method Nasal Cannula Oxygen Flow Rate 2 06/12/18 09:30 06/12/18 10:00 06/12/18 10:01 Temperature Temperature Source Sepsis Recent Fever Within 48 Hours Sepsis Action Taken by Nursing Pulse Rate 94 H 91 H 91 H Pulse Rate from SpO2 Sensor 92 H 91 H Respiratory Rate 22 20 21 Respiratory Effort / Characteristics Respiratory Depth Respiratory Pattern Blood Pressure 126/81 137/86 Blood Pressure Mean 96 103 Pulse Oximetry 93 Oxygen Delivery Method Nasal Cannula Oxygen Flow Rate 2 06/12/18 10:30 06/12/18 10:45 06/12/18 11:00 Temperature Temperature Source Sepsis Recent Fever Within 48 Hours Sepsis Action Taken by Nursing Pulse Rate 89 87 Pulse Rate from SpO2 Sensor 89 88 Respiratory Rate 18 21 Respiratory Effort / Characteristics Non-Labored SOB on Exertion Respiratory Depth Normal Respiratory Pattern Regular Blood Pressure 140/80 132/85 Blood Pressure Mean 100 100 Pulse Oximetry 94 96 Oxygen Delivery Method Room Air Room Air Room Air Oxygen Flow Rate 06/12/18 11:30 06/12/18 12:00 06/12/18 12:01 Temperature Temperature Source Sepsis Recent Fever Within 48 Hours Sepsis Action Taken by Nursing Pulse Rate 85 82 86 Pulse Rate from SpO2 Sensor 84 84 86 Respiratory Rate 19 21 23 Respiratory Effort / Characteristics Respiratory Depth Respiratory Pattern Blood Pressure 113/64 114/66 Blood Pressure Mean 80 82 Pulse Oximetry 91 91 92 Oxygen Delivery Method Nasal Cannula Nasal Cannula Nasal Cannula Oxygen Flow Rate 2 2 2 06/12/18 12:30 06/12/18 12:31 06/12/18 13:00 Temperature Temperature Source Sepsis Recent Fever Within 48 Hours Sepsis Action Taken by Nursing Pulse Rate 102 H 86 89 Pulse Rate from SpO2 Sensor 102 H 88 89 Respiratory Rate 18 21 23 Respiratory Effort / Characteristics Respiratory Depth Respiratory Pattern Blood Pressure 113/72 129/74 Blood Pressure Mean 85 92 Pulse Oximetry 92 93 91 Oxygen Delivery Method Nasal Cannula Nasal Cannula Nasal Cannula Oxygen Flow Rate 2 2 2 06/12/18 13:01 06/12/18 13:30 06/12/18 13:31 Temperature Temperature Source Sepsis Recent Fever Within 48 Hours Sepsis Action Taken by Nursing Pulse Rate 89 89 92 H Pulse Rate from SpO2 Sensor 89 85 91 H Respiratory Rate 22 23 23 Respiratory Effort / Characteristics Respiratory Depth Respiratory Pattern Blood Pressure 122/68 Blood Pressure Mean 86 Pulse Oximetry 92 91 92 Oxygen Delivery Method Nasal Cannula Nasal Cannula Nasal Cannula Oxygen Flow Rate 2 2 2 GENERAL: Awake, alert, fatigued-appearing, in no distress HENT: Normocephalic, atraumatic. Oropharynx unremarkable. Dry mucous membranes. EYES: Normal conjunctiva. Sclera non-icteric. NECK: Supple. No nuchal rigidity. RESPIRATORY: Trace expiratory wheezing. Normal respiratory effort. CARDIAC: Tachycardic rate. Irregular rhythm. Extremities warm and well perfused. GI: Soft, non-distended. No tenderness to palpation. No rebound or guarding. No masses. RECTAL: Deferred. MUSCULOSKELETAL: Atraumatic. Chest examination reveals no tenderness. There is no CVA tenderness to palpation. Left upper axillary tenderness. LOWER EXTREMITIES: Calves are equal size bilaterally and non-tender. No edema NEURO: Normal sensorium. No sensory or motor deficits noted. No facial droop. SKIN: Warm and dry. No rash or jaundice noted. Course 0644:The patient was evaluated in room B02. A complete history and physical examination was performed. 0830: I updated the patient on his current lab and imaging results. 0850: I reviewed the patient's case with LARA Lewis. She will evaluate the patient for further management and care with Dr. Powell as her attending physician. 0855: Upon reevaluation, the patient is resting comfortably. I discussed laboratory and radiographic results with the patient. He verbalized agreement of the treatment plan. The patient will be evaluated for further management and care. Consultations Consultation #1: I reviewed the patient's case with LARA Lewis. She will evaluate the patient for further management and care with Dr. Powell as her attending physician. Time: 08:50 Administered Medications Vancomycin HCl 2,250 mg/ (Sodium Chloride) 545 mls @ 200 mls/hr IV NOW STA Stop: 06/12/18 14:23 Last Admin: 06/12/18 12:28 Dose: 200 mls/hr Documented by: [id number] Ioversol (Optiray 320 125ml) 120 ml IV ONCE PRN PRN Reason: Interaction Checking Stop: 06/16/18 08:07 Last Admin: 06/12/18 08:08 Dose: 120 ml Documented by: [id number] Discontinued Medications Acetaminophen (Tylenol) 650 mg PO NOW STA Stop: 06/12/18 06:56 Last Admin: 06/12/18 07:25 Dose: 650 mg Documented by: [id number] Albuterol (Duoneb) 3 ml NEB NOW STA Stop: 06/12/18 06:56 Last Admin: 06/12/18 07:25 Dose: 3 ml Documented by: [id number] Sodium Chloride (Nss 1000ml) 1,000 mls @ 999 mls/hr IV .Q1H1M TOM Stop: 06/12/18 08:00 Last Infusion: 06/12/18 08:33 Dose: 0 mls/hr Documented by: [id number] Admin: 06/12/18 07:26 Dose: 999 mls/hr Documented by: [id number] Levofloxacin/Dextrose (Levaquin/D5w) 750 mg in 150 mls @ 100 mls/hr IV NOW STA Stop: 06/12/18 08:41 Last Infusion: 06/12/18 10:11 Dose: 0 mls/hr Documented by: [id number] Admin: 06/12/18 07:40 Dose: 100 mls/hr Documented by: [id number] Sodium Chloride (Nss 1000ml) 1,000 mls @ 999 mls/hr IV .Q1H1M ONE Stop: 06/12/18 09:05 Last Infusion: 06/12/18 10:11 Dose: 0 mls/hr Documented by: [id number] Admin: 06/12/18 08:29 Dose: 999 mls/hr Documented by: [id number] Piperacillin Sod/Tazobactam Sod (Zosyn) 4.5 gm in 120 mls @ 240 mls/hr IV NOW ONE Stop: 06/12/18 12:14 Last Infusion: 06/12/18 12:23 Dose: 0 mls/hr Documented by: [id number] Admin: 06/12/18 11:53 Dose: 240 mls/hr Documented by: [id number] Methylprednisolone (Solumedrol) 125 mg IV NOW STA Stop: 06/12/18 08:44 Last Admin: 06/12/18 08:55 Dose: 125 mg Documented by: [id number] Ondansetron HCl (Zofran) 4 mg IV NOW STA Stop: 06/12/18 06:53 Last Admin: 06/12/18 07:25 Dose: 4 mg Documented by: [id number] Medical Decision Making Differential Diagnosis Differential diagnosis: Etiologies such as viral syndrome, otitis, pharyngitis, pneumonia, influenza, meningitis, urinary tract infection, sepsis, bacteremia, as well as others were entertained. Medical Records Attestation: I reviewed the patient's medical records. Home Medications Current Medication List: was personally reviewed by me Laboratory Data Attestation: I reviewed the patient's lab results. Result diagrams: 06/12/18 07:15 06/12/18 07:15 Lab Results 06/12/18 06/12/18 06/12/18 Range/Units 07:15 07:15 07:15 WBC 10.78 (4.8-10.8) K/uL RBC 5.50 (4.7-6.1) M/uL Hgb 16.0 (14.0-18.0) g/dL Hct 47.6 (42-52) % MCV 86.5 (80-100) fL MCH 29.1 (25-34) pg MCHC 33.6 (32-36) g/dL RDW Std Deviation 41.4 (36.4-46.3) fL RDW Coeff of Leti 13.1 (11.5-14.5) % Plt Count 260 (130-400) K/uL MPV 11.3 H (7.4-10.4) fL Immature Gran % (Auto) 0.2 % Neut % (Auto) 67.0 % Lymph % (Auto) 20.2 % [place] % (Auto) 12.2 % Eos % (Auto) 0.1 % Baso % (Auto) 0.3 % Immature Gran # (Auto) 0.02 (0.00-0.02) K/uL Neut # (Auto) 7.23 H (1.4-6.5) K/uL Lymph # (Auto) 2.18 (1.2-3.4) K/uL [place] # (Auto) 1.31 H (0.11-0.59) K/uL Eos # (Auto) 0.01 (0-0.5) K/uL Baso # (Auto) 0.03 (0-0.2) K/uL PT 10.1 (9.0-12.0) Seconds INR 1.0 (0.9-1.1) Sodium 134 L (136-145) mmol/L Potassium 3.8 (3.5-5.1) mmol/L Chloride 101 (98-107) mmol/L Carbon Dioxide 25 (21-32) mmol/L Anion Gap 8.0 (3-11) BUN 16 (7-18) mg/dl Creatinine 1.06 (0.6-1.4) mg/dl Est Cr Clr Drug Dosing Not Reportable Est GFR ( Amer) 88.6 Est GFR (Non-Af Amer) 76.4 BUN/Creatinine Ratio 15.3 (10-20) Glucose 151 H (70-99) mg/dl Lactate (0.4-2.0) mmol/L Calcium 8.7 (8.5-10.1) mg/dl Total Bilirubin 0.4 (0.2-1) mg/dl AST 30 (15-37) U/L ALT 83 H (12-78) U/L Alkaline Phosphatase 100 (45-117) U/L Troponin I < 0.015 (0-0.045) ng/ml Total Protein 7.7 (6.4-8.2) gm/dl Albumin 3.6 (3.4-5.0) gm/dl Globulin 4.1 H (2.5-4.0) gm/dl Albumin/Globulin Ratio 0.9 (0.9-2) Lipase 108 (73-393) U/L Urine Color Urine Appearance (Clear) Urine pH (4.5-7.5) Ur Specific [place] (1.000-1.030) Urine Protein (Negative) Urine Glucose (UA) (Negative) Urine Ketones (Negative) Urine Blood (Negative) Urine Nitrite (Negative) Urine Bilirubin (Negative) Urine Urobilinogen (Negative) Ur Leukocyte Esterase (Negative) Hepatitis C Ab Screen (Neg) Influenza Type A Ag (Neg) Influenza Type A (PCR) (Neg) Influenza Type B Ag (Neg) Influenza Type B (PCR) (Neg) 06/12/18 06/12/18 06/12/18 Range/Units 07:15 07:15 07:15 WBC (4.8-10.8) K/uL RBC (4.7-6.1) M/uL Hgb (14.0-18.0) g/dL Hct (42-52) % MCV (80-100) fL MCH (25-34) pg MCHC (32-36) g/dL RDW Std Deviation (36.4-46.3) fL RDW Coeff of Leti (11.5-14.5) % Plt Count (130-400) K/uL MPV (7.4-10.4) fL Immature Gran % (Auto) % Neut % (Auto) % Lymph % (Auto) % [place] % (Auto) % Eos % (Auto) % Baso % (Auto) % Immature Gran # (Auto) (0.00-0.02) K/uL Neut # (Auto) (1.4-6.5) K/uL Lymph # (Auto) (1.2-3.4) K/uL Kent # (Auto) (0.11-0.59) K/uL Eos # (Auto) (0-0.5) K/uL Baso # (Auto) (0-0.2) K/uL PT (9.0-12.0) Seconds INR (0.9-1.1) Sodium (136-145) mmol/L Potassium (3.5-5.1) mmol/L Chloride (98-107) mmol/L Carbon Dioxide (21-32) mmol/L Anion Gap (3-11) BUN (7-18) mg/dl Creatinine (0.6-1.4) mg/dl Est Cr Clr Drug Dosing Est GFR ( Amer) Est GFR (Non-Af Amer) BUN/Creatinine Ratio (10-20) Glucose (70-99) mg/dl Lactate 2.8 H* (0.4-2.0) mmol/L Calcium (8.5-10.1) mg/dl Total Bilirubin (0.2-1) mg/dl AST (15-37) U/L ALT (12-78) U/L Alkaline Phosphatase (45-117) U/L Troponin I (0-0.045) ng/ml Total Protein (6.4-8.2) gm/dl Albumin (3.4-5.0) gm/dl Globulin (2.5-4.0) gm/dl Albumin/Globulin Ratio (0.9-2) Lipase (73-393) U/L Urine Color Urine Appearance (Clear) Urine pH (4.5-7.5) Ur Specific [place] (1.000-1.030) Urine Protein (Negative) Urine Glucose (UA) (Negative) Urine Ketones (Negative) Urine Blood (Negative) Urine Nitrite (Negative) Urine Bilirubin (Negative) Urine Urobilinogen (Negative) Ur Leukocyte Esterase (Negative) Hepatitis C Ab Screen (Neg) Influenza Type A Ag Neg for Influ A (Neg) Influenza Type A (PCR) Neg for Influ A (Neg) Influenza Type B Ag Neg for Influ B (Neg) Influenza Type B (PCR) Neg for Influ B (Neg) 06/12/18 06/12/18 06/12/18 Range/Units 07:15 11:30 12:43 WBC (4.8-10.8) K/uL RBC (4.7-6.1) M/uL Hgb (14.0-18.0) g/dL Hct (42-52) % MCV (80-100) fL MCH (25-34) pg MCHC (32-36) g/dL RDW Std Deviation (36.4-46.3) fL RDW Coeff of Leti (11.5-14.5) % Plt Count (130-400) K/uL MPV (7.4-10.4) fL Immature Gran % (Auto) % Neut % (Auto) % Lymph % (Auto) % [place] % (Auto) % Eos % (Auto) % Baso % (Auto) % Immature Gran # (Auto) (0.00-0.02) K/uL Neut # (Auto) (1.4-6.5) K/uL Lymph # (Auto) (1.2-3.4) K/uL [place] # (Auto) (0.11-0.59) K/uL Eos # (Auto) (0-0.5) K/uL Baso # (Auto) (0-0.2) K/uL PT (9.0-12.0) Seconds INR (0.9-1.1) Sodium (136-145) mmol/L Potassium (3.5-5.1) mmol/L Chloride (98-107) mmol/L Carbon Dioxide (21-32) mmol/L Anion Gap (3-11) BUN (7-18) mg/dl Creatinine (0.6-1.4) mg/dl Est Cr Clr Drug Dosing Est GFR ( Amer) Est GFR (Non-Af Amer) BUN/Creatinine Ratio (10-20) Glucose (70-99) mg/dl Lactate 2.4 H* (0.4-2.0) mmol/L Calcium (8.5-10.1) mg/dl Total Bilirubin (0.2-1) mg/dl AST (15-37) U/L ALT (12-78) U/L Alkaline Phosphatase (45-117) U/L Troponin I (0-0.045) ng/ml Total Protein (6.4-8.2) gm/dl Albumin (3.4-5.0) gm/dl Globulin (2.5-4.0) gm/dl Albumin/Globulin Ratio (0.9-2) Lipase (73-393) U/L Urine Color Yellow Urine Appearance Clear (Clear) Urine pH 5.0 (4.5-7.5) Ur Specific [place] > 1.045 H (1.000-1.030) Urine Protein Negative (Negative) Urine Glucose (UA) Trace H (Negative) Urine Ketones Negative (Negative) Urine Blood Negative (Negative) Urine Nitrite Negative (Negative) Urine Bilirubin Negative (Negative) Urine Urobilinogen Negative (Negative) Ur Leukocyte Esterase Negative (Negative) Hepatitis C Ab Screen Neg (Neg) Influenza Type A Ag (Neg) Influenza Type A (PCR) (Neg) Influenza Type B Ag (Neg) Influenza Type B (PCR) (Neg) Imaging Data Radiologist's Impression: Radiology results as stated below per my review and the radiologist's interpretation: XR chest 1V portable HISTORY: 57 years-old Male cough, fever acute cough with fever COMPARISON: Chest radiographs 03/15/2018 TECHNIQUE: Portable AP view of the chest FINDINGS: Cardiac silhouette is enlarged, unchanged. Chronic right hemidiaphragmatic elevation. Scattered alveolar opacities throughout the left lung including a 5.0 cm opacity of the left upper lobe. There are additional ill-defined opacities of the right midlung. No pneumothorax, large pleural effusion or overt pulmonary edema. Degenerative changes of the shoulders and spine. IMPRESSION: 1. Left greater than right bilateral alveolar opacities are suggestive of multif ocal pneumonia. 2. Cardiomegaly. The above report was generated using voice recognition software. It may contain grammatical, syntax or spelling errors. Electronically signed by: Colton Whittaker M.D. 06/12/2018 7:06 AM ABDOMEN AND PELVIS CT WITH IV CONTRAST HISTORY: Acute flulike symptoms with nausea and vomiting and acute generalized abdominal pain n/v/d, abd pain TECHNIQUE: Multiaxial CT images of the abdomen and pelvis were performed follow ing the use of intravenous contrast. A dose lowering technique was utilized adhering to the principles of ALARA. COMPARISON STUDY: CTA of the chest of same day, CTA 05/26/2014. FINDINGS: Partially imaged lobular opacities of the lingula with mild subsegmental bibasilar atelectasis. No pneumatosis or pneumoperitoneum. Imaged inferior cardiac chambers are mildly enlarged. Coronary arterial calcifications noted. Hepatic steatosis with otherwise unremarkable appearance of the liver. No evidence of cirrhosis or ascites. Indeterminate 4 mm hypodense lesion of the inferior right hepatic lobe, too small to characterize however statistically benign. The spleen, gallbladder, pancreas and adrenal glands are unremarkable. Mild nonspecific bilateral perinephric stranding. Kidneys are otherwise unrem arkable. Ureters and urinary bladder are within normal limits. Moderate mixed plaque formation of the aorta without aneurysm. IVC is unremarkable. No adenopathy. Small to moderate duodenal diverticulum. No small bowel obstruction. No bowel wall thickening. Terminal ileum and appendix appear normal. No ascites or mesenteric inflammation. Small fat filled periumbilical hernia, diastases 2.1 cm. Multilevel spondylitic spurring and facet arthropathy of the lumbar spine. Bones appear to be intact. IMPRESSION: 1. No acute intra-abdominal or intrapelvic abnormality identified. Normal appendix. 2. Groundglass and alveolar opacities of the lingula compatible with pneumonia. 3. Hepatic steatosis. 4. Small fat filled periumbilical hernia. 5. Additional findings as above. Electronically signed by: Colton Whittaker M.D. 06/12/2018 8:[address] angio chest PE protocol CT DOSE: 2157.19 mGy.cm HISTORY: 57 years-old Male with PE, CP, fever. Acute chest pain with fever TECHNIQUE: Multiple CTA images of the chest were obtained after the intravenous administration of 94 ml Optiray 320. Coronal and sagittal MIPS were obtained from the axial data set and were submitted for review. All measurements were obtained according to NASCET criteria. A dose lowering technique was utilized adhering to the principles of ALARA. COMPARISON: 52 11/08/2016, chest radiograph 06/12/2018. FINDINGS: CTA: Heart is mildly enlarged. No pericardial effusion. Coronary arterial calcifications are noted. There is no thoracic aortic aneurysm or dissection. Patency of the imaged great vessels. The main pulmonary artery is dilated measuring up to 3.3 cm transversely. The pulmonary arterial tree is opacified to level the subsegmental branches and demonstrates no focal filling defects to suggest pulmonary thromboembolic disease. CT CHEST: No focal thyroid nodule. Prominent subcarinal and bilateral hilar lymph nodes are seen measuring up to 9 mm, likely reactive. No pneumothorax or pleural effusion. Small left [place]chdalek hernia. Mild bilateral bronchial wall thickening. Patchy groundglass and consolidative opacities about the left upper lobe and lingula suggests pneumonia. The largest airspace consolidation measuring up to 6.0 x 3.1 cm within the left upper lobe on image 214 series 4 with associated central air bronchograms. Mild linear subsegmental bibasilar atelectasis. The previously questioned opacities about the right lung are most suggestive of atelectasis/scarring. Nonspecific focal area of cylindrical bronchiectasis involves the right upper lobe on image 260 series 4. Central airways appear patent. Duodenal diverticulum. Hepatic steatosis. No acute process of the imaged upper abdomen. Soft tissues are unremarkable. Bones appear to be intact. Degenerative changes of the shoulders and spine. IMPRESSION: 1. Multifocal alveolar and groundglass opacities of the left upper lobe and lingula are suggestive of pneumonia. Follow-up imaging to document resolution recommended. 2. Prominent subcarinal and bilateral hilar lymph nodes, likely reactive. 3. Mild bilateral bronchial wall thickening suggests associated bronchitis. 4. No acute aortic pathology or evidence of pulmonary thromboembolic disease. 5. Mild cardiomegaly. 6. Hepatic steatosis. The above report was generated using voice recognition software. It may contain grammatical, syntax or spelling errors. Electronically signed by: Colton Whittaker M.D. 06/12/2018 8:16 AM ECG Data Attestation: I personally reviewed and interpreted this ECG as follows: Indication: chest pain Rate (beats per minute): 118 Rhythm: sinus tachycardia Findings: + other (non-specific t-wave changes, normal intervals); no ST elevation Blood Pressure Blood Pressure Findings: Elevated blood pressure Blood Pressure Disposition: Referred to patients primary care provider MDM Narrative Patient is a 57-year-old gentleman with a history of chronic lower back pain and neck issues, COPD, atrial relation, diabetes, hyperlipidemia presenting today complaining of chest pain. Patient is currently on aspirin as well as insulin. Patient presents today with reports of 4 days of flulike symptoms with chest congestion, nasal congestion and a fever. Also endorses diarrhea and nausea and vomiting. Little bit of abdominal pain yesterday. Also states he has had episodes of near syncope and seeing stars particular with exertion. Chest pain is been consistent since Monday as well. CT of the chest and pelvis are complete along with chest x-ray. Influenza testing was sent, negative. Basic labs were completed including a troponin EKG to evaluate for any possible c ardiac etiology. I doubt this and his troponin is negative. Given fluid hydration. Patient denies actual syncope or striking his head. CT chest also help to evaluate for any axillary injury given his left axillary pain. No crepitus or evidence of skin injuries noted on exam. Abdomen is fairly benign but with his complaints to evaluate with imaging. No evidence of acute hepatitis or pancreatitis. Stool testing was ordered. Blood cultures obtained. Imaging and evaluation appears to show multifocal pneumonia; no oher process. Given allergy profile given a dose of Levaquin. CT scan did show extensive evidence of pneumonia on the left side without blood clot. Patient's oxygen level right around and below 90% requiring some oxygen. Given this believe discussed with the patient staying in the hospital for further evaluation and treatment of his CAP. Impression & Plan Pneumonia Discharge Plan Visit Data Chief Complaint: Illness Stated Complaint: PAIN IN CHEST,DIZZY,EARS FEEL PLUGGED ED Provider: Azael Ramos Discharge Problem: Pneumonia Patient Disposition: Being Evaluated by Hospitalist Discharge Instructions Interventions: ED Discharge Assessment Last Done: 06/12/18 13:51 Forms Stand Alone Forms: [facility] Prescriptions Prescriptions: No Action albuterol sulfate 2.5 mg /3 mL (0.083 %) Solution For Nebulization 1.25 mg INHALATION QID PRN (Reason: Shortness Of Breath Or Wheezing) RF: 0 diltiazem HCl 240 mg Capsule,Extended Release 24 Hr 240 mg PO DAILY RF: 0 tamsulosin 0.4 mg Capsule 0.4 mg PO DAILY RF: 0 promethazine 25 mg Tablet 25 mg PO Q6H PRN (Reason: Nausea And Vomiting) RF: 0 ergocalciferol (vitamin D2) 50,000 unit Capsule 50,000 unit PO LANGSTON@0900 RF: 0 duloxetine [Cymbalta] 60 mg Capsule,Delayed Release(Dr/Ec) 60 mg PO DAILY RF: 0 Trelegy Ellipta 100-62.5-25 mcg Blister With Device 1 inh INHALATION DAILY RF: 0 roflumilast 250 mcg Tablet 250 mcg PO DAILY RF: 0 bupropion HCl [Wellbutrin SR] 150 mg Tablet Sustained-Release 12 Hr 150 mg PO BID RF: 0 atorvastatin 80 mg Tablet 80 mg PO HS RF: 0 prednisone 10 mg Tablet 10 mg PO DAILY PRN (Reason: RESCUE KIT) RF: 0 loperamide 2 mg Capsule 2 mg PO Q3H PRN (Reason: Diarrhea) RF: 0 aspirin [Aspirin Low Dose] 81 mg Tablet,Delayed Release (Dr/Ec) 81 mg PO DAILY RF: 0 oxycodone 15 mg Tablet 15 mg PO Q8H PRN (Reason: Pain) RF: 0 gabapentin 800 mg Tablet 800 mg PO TID RF: 0 doxycycline monohydrate 100 mg Capsule 100 mg PO DAILY PRN (Reason: RESCUE KIT) RF: 0 metformin 1,000 mg Tablet 1,000 mg PO BID RF: 0 lisinopril 10 mg Tablet 10 mg PO DAILY RF: 0 montelukast [Singulair] 10 mg Tablet 10 mg PO PM RF: 0 lorazepam 1 mg Tablet 1 mg PO TID PRN (Reason: Anxiety) RF: 0 fluticasone propionate [Flonase Allergy Relief] 50 mcg/actuation [place],Suspension 2 spray INTRANASAL DAILY RF: 0 loratadine 10 mg Tablet 10 mg PO HS RF: 0 glipizide 5 mg Tablet 5 mg PO DAILY RF: 0 ipratropium bromide 0.02 % Solution 2.5 ml INHALATION Q6H PRN (Reason: Shortness Of Breath) RF: 0 Lantus Solostar U-100 Insulin 100 unit/mL (3 mL) Insulin Pen 20 unit SUBCUT TID RF: 0 Apidra SoloStar U-100 Insulin 100 unit/mL Insulin Pen subcut ACHS RF: 0 albuterol sulfate [Ventolin HFA] 90 mcg/actuation Hfa Aerosol Inhaler 2 puff INHALATION Q6H PRN (Reason: Shortness Of Breath) RF: 0 Referrals Referrals: Yann Fraga MD [Primary Care Provider] - Discharge Problem: Pneumonia Qualifiers: Pneumonia type: due to unspecified organism Laterality: left Lung location: upper lobe of lung Qualified Code(s): J18.1 - Lobar pneumonia, unspecified organism The scribe's documentation has been prepared under my direction and personally reviewed by me in its entirety. I confirm that the note above accurately reflects all work, treatment, procedures, and medical decision making performed by me.
[2018-06-12 11:17] LABS: Influenza A virus by PCR Neg for Influ A (Neg); Influenza B virus by PCR Neg for Influ B (Neg)
[2018-06-12] MEDS ORDERED: CONSULT PHARMACY STA (11:24)
--- NOTE | 2018-06-12 11:34 | History & Physical Report ---
Date of Service June 12, 2018 Assessment & Plan (1) Sepsis: (2) Multifocal pneumonia: This is a 57-year-old male with a PMH of DM II, COPD on 2L NC O2 at bedtime, HTN, HLD, NAFLD, diastolic dysfunction, mood disorder, tobacco use and other medical problems as below who presents with worsening shortness of breath x 3 days and was found to have sepsis 2/2 pneumonia. -Tachycardic at 128, febrile at 37.6 C, hypoxic in mid 80s on room air but improved to 92% on 2L nasal cannula -Flu PCR negative. White count at 10.7K with lactate elevated at 2.8. -Chest CTA with multifocal alveolar and groundglass opacities of the left upper lobe and lingula are suggestive of pneumonia -Given dose of levaquin in ED. Will switch to IV Zosyn, vanc and PO doxycycline and deescalate as appropriate -Blood cultures, MRSA swab ordered -Repeat lactate 2.4. Continue IV fluids, repeat lactate (3) Acute respiratory failure with hypoxia: (4) COPD exacerbation: Initially hypoxic at 80% but now saturation at 92% on room air. Continue home O2 of 2L NC at night -Continue IV solu-medrol 40mg Q8H, duonebs QIDR and home inhalers (5) Diarrhea: Endorsing 3 episodes daily for past few days -Ddx C diff vs side effect of amoxicillin -Stool cultures, C diff ordered (6) Atrial fibrillation: Sinus tachycardia on EKG -Given missed AM dose of diltiazem (7) Diabetes mellitus, type II: Most recent a1c of 7.3 in Dec 2017 -Repeat a1c -Hold home agents -Glycemic consult placed -BSG AC HS (8) HTN (hypertension): Normotensive. Continue home dose lisinopril (9) HLD (hyperlipidemia): Continue statin (10) Chronic back pain: Managed by PCP -Out-patient ortho referral recently placed -Continue home IR oxycodone (11) Mood disorder: Stable. Continue Wellbutrin, Cymbalta, Ativan PRN (12) Tobacco use: Recommended cessation of smokeless tobacco DVT Ppx: SQ Lovenox Code status: FULL PCP: Flakito Dispo: Admitted to [facility]. Plan to return home once medically stable. Patient seen in collaboration with Dr. Ochoa. Please see addendum. History of Present Illness Chief Complaint: Fever, chills, dyspnea Primary Care Provider: Yann Fraga MD Patient is a 57-year-old male with a PMH of DM II, COPD on 2L NC O2 at bedtime, HTN, HLD, NAFLD, diastolic dysfunction, mood disorder, tobacco use and other medical problems as below who presents with worsening shortness of breath x 3 days. Was seen at the end of April with flulike symptoms and completed course of Tamiflu. [place] better until last week, when he developed worsening dyspnea on exertion and thought to have COPD exacerbation and started on amoxicillin and prednisone. Has continued to feel poorly, endorsing fever, chills, nasal congestion, ear fullness and shortness of breath. Also endorsing 3 episodes of diarrhea daily for the past 5 days. In the ED, found to be tachycardic at 128 with temperature of 37.6 C. Initially hypoxic in mid 80s on room air but improved to 92% on 2 L nasal cannula. White count at 10.7K with lactate elevated at 2.8. Received IV fluids and dose of Levaquin in the ED. blood in stool cultures pending. Chest CTA with multifocal alveolar and groundglass opacities of the left upper lobe and lingula are suggestive of pneumonia. Allergies Allergy/AdvReac Type Severity Reaction Status Date / Time atenolol Allergy Severe DEPRESSION/ Verified 06/12/18 07:00 SUICIDAL amoxicillin Allergy Intermediate "SEVERE" Verified 06/12/18 07:00 DIARRHEA celecoxib Allergy Intermediate FLUID Verified 06/12/18 07:00 RETENTION-WT GAIN clavulanic acid Allergy Intermediate "SEVERE" Verified 06/12/18 07:00 DIARRHEA fentanyl Allergy Mild RASH Verified 06/12/18 07:00 fluoxetine AdvReac Severe HALLUCINATI Verified 06/12/18 07:00 ONS Home Medications Home Medications Medication Instructions Recorded Confirmed Type albuterol sulfate [Ventolin HFA] 2 puff INHALATION Q6H PRN 03/15/18 06/12/18 History aspirin [Aspirin Low Dose] 81 mg PO DAILY 03/15/18 06/12/18 History atorvastatin 80 mg PO HS 03/15/18 06/12/18 History bupropion HCl [Wellbutrin SR] 150 mg PO BID 03/15/18 06/12/18 History doxycycline monohydrate 100 mg PO DAILY PRN 03/15/18 06/12/18 History fluticasone propionate [Flonase 2 spray INTRANASAL DAILY 03/15/18 06/12/18 History Allergy Relief] gabapentin 800 mg PO TID 03/15/18 06/12/18 History glipizide 5 mg PO DAILY 03/15/18 06/12/18 History insulin glargine [Lantus Solostar 20 unit SUBCUT BID 03/15/18 06/12/18 History U-100 Insulin] insulin glulisine U-100 [Apidra 0 units SUBCUT ACHS 03/15/18 06/12/18 History SoloStar U-100 Insulin] ipratropium bromide 2.5 ml INHALATION Q6H PRN 03/15/18 06/12/18 History lisinopril 10 mg PO DAILY 03/15/18 06/12/18 History loperamide 2 mg PO Q3H PRN 03/15/18 06/12/18 History loratadine 10 mg PO HS 03/15/18 06/12/18 History lorazepam 1 mg PO TID PRN 03/15/18 06/12/18 History metformin 1,000 mg PO BID 03/15/18 06/12/18 History montelukast [Singulair] 10 mg PO PM 03/15/18 06/12/18 History oxycodone 15 mg PO Q8H PRN 03/15/18 06/12/18 History prednisone 10 mg PO DAILY PRN 03/15/18 06/12/18 History albuterol sulfate 1.25 mg INHALATION QID PRN 06/12/18 06/12/18 History diltiazem HCl 240 mg PO DAILY 06/12/18 06/12/18 History duloxetine [Cymbalta] 60 mg PO DAILY 06/12/18 06/12/18 History ergocalciferol (vitamin D2) 50,000 unit PO LANGSTON@0900 06/12/18 06/12/18 History [id number]-[id number] 1 inh INHALATION DAILY 06/12/18 06/12/18 History [Trelegy Ellipta] pregabalin [Lyrica] 150 mg PO TID 06/12/18 06/12/18 History promethazine 25 mg PO Q6H PRN 06/12/18 06/12/18 History roflumilast 250 mcg PO DAILY 06/12/18 06/12/18 History tamsulosin 0.4 mg PO DAILY 06/12/18 06/12/18 History Past Med/Surg History Medical History HTN (hypertension) (Chronic) Tobacco use (Chronic) Mood disorder (Chronic) Narcotic dependence (Chronic) Chronic back pain (Chronic) Diabetes mellitus, type II (Chronic) HLD (hyperlipidemia) (Chronic) Atrial fibrillation (Chronic) COPD (chronic obstructive pulmonary disease) (Chronic) Steatosis of liver (Chronic Unknown) Vasodepressor syncope (Chronic) Anxiety (Chronic) Surgical History No pertinent past surgical history (Chronic) Family History Other FHx: heart disease Family history of diabetes mellitus Family history of high blood pressure Family history of kidney disease Social History Preferred Language: Mongolian Communication Ability: Effective Synthetic Soil Blocks Pulper Required: No Beliefs That Will Affect Care: None marital status: Current Living Situation: Spouse current occupational status: unemployed and disabled Other Information That Helps Us Care for You: No Feels Safe at Home: Yes Safety Concerns: Feels Safe At This Time Smoking Status: Never smoker Tobacco Type: smokeless tobacco Do You Dip or Chew Tobacco: Yes (1 can q 2 days) Second Hand Exposure: No Tobacco Cessation Ed ucation Requested by Patient: No Hx Alcohol Use: No Hx Substance Use: No Review of Systems Review of Systems: At least ten systems reviewed and negative except as noted in the HPI. Physical Exam Physical Exam: General Appearance: WD/WN, no apparent distress, resting comfortably, appears ill but non-toxic Head: normocephalic, atraumatic Eyes: normal inspection, PERRL, EOMI ENT: hearing grossly normal, pharynx normal (dry mucous membranes) Neck: supple, no JVD, no adenopathy Respiratory/Chest: Bibasilar crackles, scattered wheezing in bilateral lung mejia. No respiratory distress or accessory muscle use. Saturating at 95% on 2L NC O2 Cardiovascular: regular rate, rhythm, no murmur, normal peripheral pulses Abdomen/GI: normal bowel sounds, soft, non-tender to palpation Extremities/Musculoskelatal: normal inspection, no calf tenderness, normal capillary refill, no pedal edema Neurologic/Psych: alert, normal mood/affect, oriented x 3 Skin: normal color, warm/dry Results & Data Vital Signs (Past 12 Hours) Vital Signs Temp Pulse Resp BP Pulse Ox 06/12/18 11:00 87 21 132/85 96 06/12/18 10:30 89 18 140/80 94 06/12/18 10:01 91 H 21 93 06/12/18 10:00 91 H 20 137/86 06/12/18 09:30 94 H 22 126/81 06/12/18 09:01 102 H 22 115/77 06/12/18 09:00 104 H 20 06/12/18 08:31 100 H 21 95 06/12/18 08:30 100 H 22 134/81 06/12/18 08:12 101 H 19 06/12/18 08:11 103 H 28 H 121/75 06/12/18 07:37 99 H 13 06/12/18 07:36 103 H 15 122/73 06/12/18 07:30 101 H 16 06/12/18 07:05 113 H 30 H 92 06/12/18 06:47 113 H 28 H 142/95 H 92 06/12/18 06:26 37.6 C H 128 H 20 141/76 H 93 Laboratory Results Short CBC 06/12/18 Range/Units 07:15 WBC 10.78 (4.8-10.8) K/uL Hgb 16.0 (14.0-18.0) g/dL Hct 47.6 (42-52) % Plt Count 260 (130-400) K/uL BMP 06/12/18 07:15 Sodium 134 L Potassium 3.8 Chloride 101 Carbon Dioxide 25 BUN 16 Creatinine 1.06 Glucose 151 H Calcium 8.7 Cardiac Enzymes 06/12/18 Range/Units 07:15 Troponin I < 0.015 (0-0.045) ng/ml Liver Function 06/12/18 Range/Units 07:15 Total Bilirubin 0.4 (0.2-1) mg/dl AST 30 (15-37) U/L ALT 83 H (12-78) U/L Alkaline Phosphatase 100 (45-117) U/L Albumin 3.6 (3.4-5.0) gm/dl Urine 06/12/18 Range/Units 11:30 Urine Color Yellow Urine Appearance Clear (Clear) Urine pH 5.0 (4.5-7.5) Ur Specific [place] > 1.045 H (1.000-1.030) Urine Protein Negative (Negative) Urine Glucose (UA) Trace H (Negative) Diagnostic Findings CXR: IMPRESSION: 1. Left greater than right bilateral alveolar opacities are suggestive of multifocal pneumonia. 2. Cardiomegaly. Chest CTA: IMPRESSION: 1. Multifocal alveolar and groundglass opacities of the left upper lobe and lingula are suggestive of pneumonia. Follow-up imaging to document resolution recommended. 2. Prominent subcarinal and bilateral hilar lymph nodes, likely reactive. 3. Mild bilateral bronchial wall thickening suggests associated bronchitis. 4. No acute aortic pathology or evidence of pulmonary thromboembolic disease. 5. Mild cardiomegaly. 6. Hepatic steatosis. CT abd/pelvis: IMPRESSION: 1. No acute intra-abdominal or intrapelvic abnormality identified. Normal appendix. 2. Groundglass and alveolar opacities of the lingula compatible with pneumonia. 3. Hepatic steatosis. 4. Small fat filled periumbilical hernia. 5. Additional findings as above. Supervising Physician Co-Signing Physician Notes Attending addendum The patient was seen and examined in emergency room He has been complaining of cough, increasing shortness of breath, feverish for the last few days He has been feeling a little better since in the ER Denies any chest pain and/or palpitation. 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
[2018-06-12] MEDS ORDERED: PIPERACILL/TAZOBAC CONSULT ACTIVE PRN (11:37)
[2018-06-12] MEDS ORDERED: VANCOMYCIN CONSULT ACTIVE PRN (11:37)
[2018-06-12] MEDS ORDERED: VANCOMYCIN HCL 2,250 MG in SODIUM CHLORIDE 0.9% 500 ML IV STA (11:40)
[2018-06-12] MEDS ORDERED: PIPERACILLIN/TAZOBACTAM 4.5 GM/120 ML BAG IV ONE (11:45)
[2018-06-12 11:47] LABS: Appearance Urine Clear (Clear); Bilirubin Urine Negative (Negative); Blood Urine Negative (Negative); Color Urine Yellow; Glucose Urine UA Trace (Negative); Ketones Urine Negative (Negative); Leukocyte Esterase Urine Negative (Negative); Nitrite Urine Negative (Negative); Protein Urine Negative (Negative); Specific Gravity Urine > 1.045 (1.000-1.030); Urobilinogen Urine Negative (Negative)
[2018-06-12] MEDS ORDERED: GLUCAGON FOR INJ 1 MG VIAL SQ PRN (14:14)
[2018-06-12] MEDS ORDERED: DEXTROSE 50% 50 ML SYRINGE IV PRN (14:14)
[2018-06-12] MEDS ORDERED: ONDANSETRON INJ 2 MG/ML 2 ML VIAL IV PRN (14:14)
[2018-06-12] MEDS ORDERED: ACETAMINOPHEN 325 MG TAB PO PRN (14:14)
[2018-06-12] MEDS ORDERED: CARBOHYDRATES FOR HYPOGLYCEMIA PO PRN (14:14)
[2018-06-12] MEDS ORDERED: GLUCOSE 40% GEL 15 GM TUBE PO PRN (14:14)
[2018-06-12] MEDS ORDERED: PROMETHAZINE HCL 25 MG TAB PO PRN (14:14)
[2018-06-12] MEDS ORDERED: GLUCOSE 10 TABS/TUBE PO PRN (14:14)
[2018-06-12] MEDS ORDERED: ALBUTEROL HFA 8 GM INHALER INH PRN (14:14)
[2018-06-12] MEDS ORDERED: LORazepam 1 MG TAB PO PRN (14:14)
[2018-06-12] MEDS ORDERED: PHARMACY GLYCEMIC MGMT CONSULT PRN (14:39)
--- NOTE | 2018-06-12 14:45 | Pharmacy Report ---
Pharmacy Abx Initial Consult - Date of Service June 12, 2018 - Pharmacy Dosing Scope Date of Consult: 06/12/18 Consultation requested by: Regina George PA-C Pharmacy is consulted to initiate vanc and Zosyn IV dosing therapy, order appropriate labs and adjust drug dose/frequency. - Subjective The patient is a 57 year old M admitted on 06/12/18 10:14. - Objective Height: 5 ft 9 in Weight: 90.718 kg Vital Signs (Past 12hrs): Vital Signs Temp Pulse Resp BP Pulse Ox 06/12/18 14:14 96 H 06/12/18 13:31 92 H 23 92 06/12/18 13:30 89 23 122/68 91 06/12/18 13:01 89 22 92 06/12/18 13:00 89 23 129/74 91 06/12/18 12:31 86 21 93 06/12/18 12:30 102 H 18 113/72 92 06/12/18 12:01 86 23 92 06/12/18 12:00 82 21 114/66 91 06/12/18 11:30 85 19 113/64 91 06/12/18 11:00 87 21 132/85 96 06/12/18 10:30 89 18 140/80 94 06/12/18 10:01 91 H 21 93 06/12/18 10:00 91 H 20 137/86 06/12/18 09:30 94 H 22 126/81 06/12/18 09:01 102 H 22 115/77 06/12/18 09:00 104 H 20 06/12/18 08:31 100 H 21 95 06/12/18 08:30 100 H 22 134/81 06/12/18 08:12 101 H 19 06/12/18 08:11 103 H 28 H 121/75 06/12/18 07:37 99 H 13 06/12/18 07:36 103 H 15 122/73 06/12/18 07:30 101 H 16 06/12/18 07:05 113 H 30 H 92 06/12/18 06:47 113 H 28 H 142/95 H 92 06/12/18 06:26 37.6 C H 128 H 20 141/76 H 93 Lab Results (24hrs): Laboratory Tests (24 Hours) 06/12/18 06/12/18 07:15 07:15 WBC 10.78 Neut # (Auto) 7.23 H Creatinine 1.06 Est Cr Clr Drug Dosing Not Reportable Micro Results: 06/12/18 07:39 Blood Culture - Pending Blood 06/12/18 07:15 Blood Culture - Pending Blood - Assessment & Plan Assessment * 57 year old M who presented to [facility] on 06/12 with SOB * Of note, pt was thought to have COPD exacerbation last week; started on amoxicillin and prednisone * Chest CTA suggestive of PNA; started empirically on Vanc, Zosyn, and doxy * MRSA nasal swab and blood cultures ordered Plan Vancomycin IV * Estimated PK Parameters: Vd 0.7 L/kg, Florentino 0.069 hr-1, t1/2 10 hr * Loading dose: 2250 mg (~25 mg/kg) * Maintenance dose: 1500 mg IV (~16 mg/kg) every 12 hours * Goal trough level: 15 to 20 mcg/mL * Trough level will be ordered pending nasal swab results Piperacillin/tazobactam * 4.5 g bolus administered over 30 minutes, then 3.375 g IV extended infusion every 8 hours for CrCl greater than 20 mL/min Pharmacy will continue to follow and will adjust dose/frequency as necessary. Thank you.
[2018-06-12] MEDS ORDERED: INSULIN GLARGINE SOLOSTAR 100 UNITS/ML 3 ML PEN SC STA (15:04)
[2018-06-12] MEDS: ALBUT/IPRATROP 3MG/0.5MG NEB 3 ML VIAL NEB SCH ×3 (15:04→19:58)
[2018-06-12] MEDS: INSULIN ASPART 100 UNITS/ML 3 ML PEN SC SCH ×4 (15:21→23:55)
--- NOTE | 2018-06-12 15:24 | Pharmacy Report ---
Glycemic Control Consultation - Date of Service June 12, 2018 - Scope Scope: Glycemic Pharmacist consulted by Regina Longoria on 06/12/18 for glycemic control and to write orders per [facility] inpatient glycemic control protocol - Objective Weight: 90.718 kg Accuchecks BSG (last 24hrs): 06/12/18 07:15 Glucose 151 H Laboratory Data (last 24hrs): 06/12/18 07:15 Potassium 3.8 Carbon Dioxide 25 Anion Gap 8.0 Creatinine 1.06 Est Cr Clr Drug Dosing Not Reportable - Recent Pertinent Medications Outpatient Anti-diabetic Regimen: * Lantus 20u BID, Apidra SSI, Glipizide, Metformin * A1c = 8.2 % 11/08/16 - Assessment & Plan Assessment & Plan: ASSESSMENT: * I met with Mr. Marie and bedside to corroborate his home regimen. He is unknown to the pharmacy glycemic service. PMHx consistent with: COPD, DM- II, NAFLD, HTN, HLD. His most recent A1C is 8.2% from 11/08/16, Will order an A1C for 06/13/18. * He is being worked up for sepsis and a COPD exacerbation. He is ordered IV vancomycin/zosyn. He was given SM 125mg IV X1 in the ER and is ordered SM 40mg q8. * He did not take any insulin today * By his own admission he admits to taking Lantus 20 units TID when he is hyperglycemic. We discussed that lantus is predominantly a q24 hr insulin and occasionally there are indications for a BID regimen. Pt verbalized understanding. PLAN FOR INPATIENT GLYCEMIC CONTROL: * Holding outpatient oral diabetes medications * Basal insulin * Lantus 35 units X1 STAT due to missing AM lantus and in setting of ongoing GCs. * Then SC scale this evening BID: * For BSGs <140mg/dL give 20 units * BSGs 140-200mg/dL give 30 units * BSGs >200 give 35 units * Bolus insulin * NovoLog per scale ACHS or Q6hrs while NPO * Goal Range: Low 110 mg/dL - High 140 mg/dL * Correction Factor: 20 mg/dL/unit * Nutritional / Prandial insulin per carb ratio of 1 unit per 6 grams CHO consumed * will add 00,04 checks to help ensure euglycemia * Please note that the plan above was derived based on current level of insulin resistance and hospital stress. These recommendations are appropriate for inpatient admission only. Plan of care upon discharge will need to be reassessed to avoid potential outpatient hypo/hyperglycemia. Thank you.
[2018-06-12] MEDS: OXYCODONE HCL IR 5 MG TAB (IMMEDIATE RELEASE) PO PRN ×2 (15:40→23:33)
[2018-06-12] MEDS: PIPERACILLIN/TAZOBACTAM 3.375 GM in DEXTROSE 5% 100 ML IV SCH ×2 (16:11→23:33)
[2018-06-12] MEDS: SODIUM CHLORIDE 0.9% 1000ML 1,000 ML IV SCH ×2 (16:11→23:51)
[2018-06-12] MEDS: methylPREDNISolone 40 MG in SYRINGE 0 ML IV SCH ×2 (16:52→23:37)
[2018-06-12] MEDS: DULOXETINE HCL 60 MG CAP PO SCH (16:53)
[2018-06-12] MEDS: ASPIRIN 81 MG ECTAB PO SCH (16:53)
[2018-06-12] MEDS: LISINOPRIL 10 MG TAB PO SCH (16:54)
[2018-06-12] MEDS: PREGABALIN 150 MG CAP PO SCH (20:50)
[2018-06-12] MEDS: BuPROPion SR 150 MG TABCR PO SCH (20:51)
[2018-06-12] MEDS: DOXYCYCLINE HYCLATE 100 MG CAP PO SCH (20:51)
[2018-06-12] MEDS: ATORVASTATIN 40 MG TAB PO SCH (20:51)
[2018-06-12] MEDS: MONTELUKAST SODIUM 10 MG TABLET PO SCH (20:52)
[2018-06-12] MEDS: INSULIN GLARGINE SOLOSTAR 100 UNITS/ML 3 ML PEN SC SCH (20:59)
[2018-06-12] MEDS: ENOXAPARIN INJ 40 MG/0.4 ML SYR SQ SCH (21:02)
[2018-06-13] MEDS ORDERED: VANCOMYCIN HCL 1,500 MG in SODIUM CHLORIDE 0.9% 500 ML IV SCH
[2018-06-13] MEDS: INSULIN ASPART 100 UNITS/ML 3 ML PEN SC SCH ×5 (03:59→21:13)
[2018-06-13 06:18] LABS: Hematocrit (blood only) 41.1 % (42-52); Hemoglobin 13.8 g/dL (14.0-18.0); Mean Corpuscular Hgb Conc 33.6 g/dL (32-36); Mean Corpuscular Volume 86.9 fL (80-100); Mean Platelet Volume 11.6 fL (7.4-10.4); Platelet Count 217 K/uL (130-400); RDW Standard Deviation 41.7 fL (36.4-46.3); Red Blood Count 4.73 M/uL (4.7-6.1); White Blood Count 11.35 K/uL (4.8-10.8)
[2018-06-13 06:48] LABS: Calcium 8.2 mg/dl (8.5-10.1); Creatinine Clr Calc Pharmacy 95.1 ml/min; Est GFR (African American) 88.6; Est GFR (Non-African American) 76.4; Potassium 4.2 mmol/L (3.5-5.1)
[2018-06-13] MEDS: ALBUT/IPRATROP 3MG/0.5MG NEB 3 ML VIAL NEB SCH ×4 (07:14→19:19)
[2018-06-13 07:38] LABS: Estimated Average Glucose 174 mg/dl; Hemoglobin A1C 7.7 % (4.5-5.6)
[2018-06-13] MEDS: SODIUM CHLORIDE 0.9% 1000ML 1,000 ML IV SCH ×3 (07:52→23:35)
[2018-06-13] MEDS: PIPERACILLIN/TAZOBACTAM 3.375 GM in DEXTROSE 5% 100 ML IV SCH (07:53)
[2018-06-13] MEDS: OXYCODONE HCL IR 5 MG TAB (IMMEDIATE RELEASE) PO PRN ×2 (07:57→17:32)
[2018-06-13] MEDS: methylPREDNISolone 40 MG in SYRINGE 0 ML IV SCH (07:57)
[2018-06-13] MEDS: PREGABALIN 150 MG CAP PO SCH ×3 (07:57→20:17)
[2018-06-13] MEDS: ASPIRIN 81 MG ECTAB PO SCH (08:00)
[2018-06-13] MEDS: LISINOPRIL 10 MG TAB PO SCH (08:00)
[2018-06-13] MEDS: DULOXETINE HCL 60 MG CAP PO SCH (08:00)
[2018-06-13] MEDS: ROFLUMILAST 500 MCG TAB PO SCH (08:01)
[2018-06-13] MEDS: TAMSULOSIN HCL 0.4 MG CAP PO SCH (08:02)
[2018-06-13] MEDS: BuPROPion SR 150 MG TABCR PO SCH ×2 (08:03→20:14)
[2018-06-13] MEDS: FLUTICASONE PROPIONATE NA SPR 16 GM BTL NAE SCH (08:03)
[2018-06-13] MEDS: INSULIN GLARGINE SOLOSTAR 100 UNITS/ML 3 ML PEN SC SCH ×2 (08:49→21:17)
[2018-06-13] MEDS: DOXYCYCLINE HYCLATE 100 MG CAP PO SCH ×2 (08:50→20:13)
[2018-06-13] MEDS ORDERED: VANCOMYCIN HCL 1,750 MG in SODIUM CHLORIDE 0.9% 500 ML IV SCH (12:00)
--- NOTE | 2018-06-13 14:34 | Pharmacy Report ---
Pharmacy Glycemic Short Note 2 - Date of Service June 13, 2018 - Glycemic Short BSG Results (Last 24 hours): 06/12/18 06/12/18 06/12/18 14:27 16:28 20:49 Glucose POC Glucose 256 H 284 H 217 H 06/12/18 06/13/18 06/13/18 23:54 03:58 05:55 Glucose 226 H POC Glucose 205 H 213 H 06/13/18 06/13/18 07:39 11:43 Glucose POC Glucose 204 H 291 H ASSESSMENT: 06/13: * Patient received total of 107 units of insulin yesterday, of which 70 units were basal insulin * Fasting BSG this am 213 mg/dL - patient to receive 35 units of Lantus per scale * BSGs elevated yesterday likely due to steroids - received solumedrol 125 mg IV x 1, then started on solumedrol 40 iv q 8hs * Steroids continuing this morning - tightened CR with breakfast; Lunchtime BSG trending up despite change in CR at breakfast - tightened further to 4 * Steroids now adjusted to solumedrol 40 mg iv daily starting tomorrow (only received one dose of the Q8 hr dosing this morning) * Anticipate steroids to wear off later this afternoon/evening - will need to loosen tomorrow am 06/12: * I met with Mr. Marie and bedside to corroborate his home regimen. He is unknown to the pharmacy glycemic service. PMHx consistent with: COPD, DM- II, NAFLD, HTN, HLD. His most recent A1C is 8.2% from 11/08/16, Will order an A1C for 06/13/18. * He is being worked up for sepsis and a COPD exacerbation. He is ordered IV vancomycin/zosyn. He was given SM 125mg IV X1 in the ER and is ordered SM 40mg q8. * He did not take any insulin today * By his own admission he admits to taking Lantus 20 units TID when he is hyperglycemic. We discussed that lantus is predominantly a q24 hr insulin and occasionally there are indications for a BID regimen. Pt verbalized understanding. PLAN FOR INPATIENT GLYCEMIC CONTROL: * Holding outpatient oral diabetes medications * Basal insulin * Lantus bid with scale - continue same * Then SC scale this evening BID: * For BSGs <160 mg/dL give 20 units * BSGs 160-200mg/dL give 30 units * BSGs >200 give 35 units * Bolus insulin - adjusted * NovoLog per scale ACHS or Q6hrs while NPO * Goal Range: Low 110 mg/dL - High 140 mg/dL * Correction Factor: 20 mg/dL/unit * Nutritional / Prandial insulin per carb ratio of 1 unit per 4 grams CHO consumed * will add , checks to help ensure euglycemia
[2018-06-13] MEDS: PIPERACILLIN/TAZOBACTAM 4.5 GM in DEXTROSE 5% 100 ML IV SCH ×2 (16:31→23:41)
--- NOTE | 2018-06-13 17:05 | Hospitalist Progress Note ---
Date of Service June 13, 2018 Assessment & Plan (1) Sepsis: (2) Multifocal pneumonia: Patient is a 57 yr male who presents with worsening SOB, cough for three days and was found to be septic due to pneumonia. CTA:Multifocal alveolar and ground glass opacities of the left upper lobe and lingula are suggestive of pneumonia. Follow-up imaging to document resolution recommended. Influenza Screen is negative Initial Blood cultures:Strep Species Repeat Blood culture:pending MRSA screen is negative Continue Zosyn, Doxy Continue IV fluids (3) Acute respiratory failure with hypoxia: (4) COPD exacerbation: Initially hypoxic at 80% Continue IV solu-medrol, duonebs, home inhalers Saturating well on room air (5) Diarrhea: Diarrhea Resolved Stool Culture pending R/O C.diff if recurs (6) Atrial fibrillation: Sinus tachycardia on EKG Continue diltiazem, Aspirin (7) Diabetes mellitus, type II: Hb A1C: 7.7 Hold home agents Pharmacy consulted for Glycemic management Monitor BGs (8) HTN (hypertension): Stable Continue current meds (9) HLD (hyperlipidemia): Continue statin (10) Chronic back pain: Managed by PCP Out-patient ortho referral recently placed Continue home IR oxycodone (11) Mood disorder: Stable Continue Wellbutrin, Cymbalta, Ativan PRN (12) Tobacco use: 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 DVT Px: Lovenox SQ Code status: Full Code Subjective Patient is seen and examined at bedside Feels better today Less cough, SOB Diarrhea resolved Denies chest pain, dizziness, abd pain No other complaints Review of Systems Review of Systems: All systems reviewed & are unremarkable except as noted in HPI & below Physical Exam Physical Exam: Physical Exam: Vitals signs as noted above General Appearance:Obese, no apparent distress Head: normocephalic, Atraumatic Eyes: normal inspection, EOMI Neck: supple, Trachea midline Respiratory/Chest: Decreased breath sounds, CTA Cardiovascular: S1, S2, No murmur, +Tachycardia Abdomen/GI:Soft, Non tender, Bowel sounds present Extremities/Musculoskelatal:normal inspection, no edema Neurologic/Psych:AAOX3, grossly no focal neurological deficits Skin: normal color, warm Results & Data Vital Signs (Past 12 Hours) Vital Signs Temp Pulse Pulse Resp BP BP Pulse Ox 06/13/18 15:32 36.4 C L 99 H 20 117/68 94 06/13/18 15:10 103 H 18 91 06/13/18 11:32 36.7 C 95 H 17 121/74 88 L 06/13/18 11:09 78 18 92 06/13/18 07:14 100 H 18 93 06/13/18 07:08 36.7 C 85 22 118/62 91 Laboratory Results Short CBC 06/13/18 Range/Units 05:55 WBC 11.35 H (4.8-10.8) K/uL Hgb 13.8 L (14.0-18.0) g/dL Hct 41.1 L (42-52) % Plt Count 217 (130-400) K/uL BMP 06/13/18 05:55 Sodium 139 Potassium 4.2 Chloride 107 Carbon Dioxide 26 BUN 16 Creatinine 1.06 Glucose 226 H Calcium 8.2 L
[2018-06-13] MEDS: ATORVASTATIN 40 MG TAB PO SCH (20:12)
[2018-06-13] MEDS: ENOXAPARIN INJ 40 MG/0.4 ML SYR SQ SCH (20:12)
[2018-06-13] MEDS: MONTELUKAST SODIUM 10 MG TABLET PO SCH (20:13)
[2018-06-14] MEDS ORDERED: INSULIN ASPART 100 UNITS/ML 3 ML PEN SC SCH
[2018-06-14] MEDS: OXYCODONE HCL IR 5 MG TAB (IMMEDIATE RELEASE) PO PRN ×3 (02:15→19:34)
[2018-06-14 06:29] LABS: Hematocrit (blood only) 38.8 % (42-52); Hemoglobin 12.7 g/dL (14.0-18.0); Mean Corpuscular Hgb Conc 32.7 g/dL (32-36); Mean Corpuscular Volume 87.2 fL (80-100); Mean Platelet Volume 11.5 fL (7.4-10.4); Platelet Count 230 K/uL (130-400); RDW Coefficient of Variation 13.2 % (11.5-14.5); RDW Standard Deviation 42.3 fL (36.4-46.3); Red Blood Count 4.45 M/uL (4.7-6.1); White Blood Count 15.33 K/uL (4.8-10.8)
[2018-06-14 06:58] LABS: BUN Creatinine Ratio 21.3 (10-20); Creatinine Clr Calc Pharmacy 117.5 ml/min; Est GFR (Non-African American) 94.9; Magnesium 1.9 mg/dl (1.8-2.4); Potassium 4.1 mmol/L (3.5-5.1)
[2018-06-14] MEDS: ALBUT/IPRATROP 3MG/0.5MG NEB 3 ML VIAL NEB SCH ×4 (07:16→18:51)
[2018-06-14] MEDS: SODIUM CHLORIDE 0.9% 1000ML 1,000 ML IV SCH ×2 (07:44→16:46)
[2018-06-14] MEDS: PIPERACILLIN/TAZOBACTAM 4.5 GM in DEXTROSE 5% 100 ML IV SCH (07:45)
[2018-06-14] MEDS: PREGABALIN 150 MG CAP PO SCH ×3 (07:47→20:41)
[2018-06-14] MEDS: FLUTICASONE PROPIONATE NA SPR 16 GM BTL NAE SCH (07:47)
[2018-06-14] MEDS: methylPREDNISolone 40 MG in SYRINGE 0 ML IV SCH (07:48)
[2018-06-14] MEDS: ASPIRIN 81 MG ECTAB PO SCH (07:48)
[2018-06-14] MEDS: LISINOPRIL 10 MG TAB PO SCH (07:49)
[2018-06-14] MEDS: TAMSULOSIN HCL 0.4 MG CAP PO SCH (07:49)
[2018-06-14] MEDS: DOXYCYCLINE HYCLATE 100 MG CAP PO SCH ×2 (07:49→20:35)
[2018-06-14] MEDS: ROFLUMILAST 500 MCG TAB PO SCH (07:50)
[2018-06-14] MEDS: BuPROPion SR 150 MG TABCR PO SCH ×2 (07:50→20:35)
[2018-06-14] MEDS: DULOXETINE HCL 60 MG CAP PO SCH (07:51)
[2018-06-14] MEDS: INSULIN ASPART 100 UNITS/ML 3 ML PEN SC SCH ×4 (08:45→20:29)
--- NOTE | 2018-06-14 08:45 | Pharmacy Report ---
Pharmacy Glycemic Short Note 2 - Date of Service June 14, 2018 - Glycemic Short BSG Results (Last 24 hours): 06/13/18 06/13/18 06/13/18 11:43 16:16 20:39 Glucose POC Glucose 291 H 294 H 274 H 06/13/18 06/14/18 06/14/18 23:37 05:57 07:27 Glucose 144 H POC Glucose 232 H 124 H Outpatient regimen: * Lantus 20 units BID * Apidra per sliding scale * Glipizide 5 mg daily * Metformin 1 gm BID ASSESSMENT: 06/14 * Mr. Marie rec'd 130 units of insulin yesterday (65 of this being basal) * Fasting BSG is much improved today - 124 mg/dL * His steroids were tapered to just once daily yesterday and continue this way today * Will start to reduce basal dose at this point but plan to still be aggressive with bolus insulin with the steroids on board. I'm estimating TDD ~120 units, but will provide only 30-40% of this as basal since steroids mainly affect postprandial BSGs. 06/13: * Patient received total of 107 units of insulin yesterday, of which 70 units were basal insulin * Fasting BSG this am 213 mg/dL - patient to receive 35 units of Lantus per scale * BSGs elevated yesterday likely due to steroids - received solumedrol 125 mg IV x 1, then started on solumedrol 40 iv q 8hs * Steroids continuing this morning - tightened CR with breakfast; Lunchtime BSG trending up despite change in CR at breakfast - tightened further to 4 * Steroids now adjusted to solumedrol 40 mg iv daily starting tomorrow (only received one dose of the Q8 hr dosing this morning) * Anticipate steroids to wear off later this afternoon/evening - will need to loosen tomorrow am 06/12: * I met with Mr. Marie and bedside to corroborate his home regimen. He is unknown to the pharmacy glycemic service. PMHx consistent with: COPD, DM- II, NAFLD, HTN, HLD. His most recent A1C is 8.2% from 11/08/16, Will order an A1C for 06/13/18. * He is being worked up for sepsis and a COPD exacerbation. He is ordered IV vancomycin/zosyn. He was given SM 125mg IV X1 in the ER and is ordered SM 40mg q8. * He did not take any insulin today * By his own admission he admits to taking Lantus 20 units TID when he is hyperglycemic. We discussed that lantus is predominantly a q24 hr insulin and occasionally there are indications for a BID regimen. Pt verbalized understanding. PLAN FOR INPATIENT GLYCEMIC CONTROL: * Continue to hold outpatient oral diabetes medications * Basal insulin - decrease, but give higher dose in AM to coincide with Solu- medrol * Lantus qAM per the following scale: 25 units for BSG < 160 30 units for BSG 160 or above * Lantus qPM per the following scale: 20 units for BSG < 160 25 units for BSG 160 or above * Bolus insulin - no change * NovoLog per scale ACHS or Q6hrs while NPO * Goal Range: Low 110 mg/dL - High 140 mg/dL * Correction Factor: 18 mg/dL/unit * Nutritional / Prandial insulin per carb ratio of 1 unit per 4 grams CHO consumed Discharge Recommendations: * A1c indicates improved control as an outpatient * Recommend to continue same regimen on discharge. Patient was instructed earlier to not take his Lantus TID (as patient described) when BSGs are elevated. His sliding scale insulin should be used in this case.
[2018-06-14] MEDS: INSULIN GLARGINE SOLOSTAR 100 UNITS/ML 3 ML PEN SC SCH (08:46)
--- NOTE | 2018-06-14 12:12 | Infectious Disease Consult ---
Date of Consultation June 14, 2018 Assessment & Plan (1) Streptococcus bovis infection: will change abx to rocephin, follow repeat cultures and echo results. check sputum culture. strong relationship between S. bovis bloodstream infection and colon malignancy, should have colonoscopy done. will follow. (2) Sepsis: (3) Multifocal pneumonia: History of Present Illness Attending Physician: Geraldo Fisher MD pt admitted with continued sob and low O2, 80%, family present at bedside. states he wears O2 at night but rarely needs. has had increased sob, productive cough. on and off of abx recently. Feels good on abx but then has decline when stopped. now on zosyn, tolerating well. feeling better. CTA in ER revealed b/l opacities. no PE. CT abd/pelvis unremarkable. had fever of 37.6 in ER, denies fevers at home, was recently on augmentin, had diarrhea, now resolved. no abd pain, no n/v/d, wt and appetite stable. no bloody stool. Also on IV steroids, wbc has increased from 11 to 15 this hospital stay. blood cultures done in ER, now growing S. bovis 2/2 sets, repeat pending, echo pending. had colonoscopy in past, believes >10years ago, states this was normal. States he is "due". Creat normal. UA and flu swab negative. Currently afebrile. Overall states he is feeling better, continues with productive cough, yellow/brown sputum, denies blood. denies sob, mendez, no cp, no wheeze. no gu symptoms. Allergies Allergy/AdvReac Type Severity Reaction Status Date / Time atenolol Allergy Severe DEPRESSION/ Verified 06/12/18 07:00 SUICIDAL amoxicillin Allergy Intermediate "SEVERE" Verified 06/12/18 07:00 DIARRHEA celecoxib Allergy Intermediate FLUID Verified 06/12/18 07:00 RETENTION-WT GAIN clavulanic acid Allergy Intermediate "SEVERE" Verified 06/12/18 07:00 DIARRHEA fentanyl Allergy Mild RASH Verified 06/12/18 07:00 fluoxetine AdvReac Severe HALLUCINATI Verified 06/12/18 07:00 ONS Home Medications Home Medications Medication Instructions Recorded Confirmed Type albuterol sulfate [Ventolin HFA] 2 puff INHALATION Q6H PRN 03/15/18 06/12/18 History aspirin [Aspirin Low Dose] 81 mg PO DAILY 03/15/18 06/12/18 History atorvastatin 80 mg PO HS 03/15/18 06/12/18 History bupropion HCl [Wellbutrin SR] 150 mg PO BID 03/15/18 06/12/18 History doxycycline monohydrate 100 mg PO DAILY PRN 03/15/18 06/12/18 History fluticasone propionate [Flonase 2 spray INTRANASAL DAILY 03/15/18 06/12/18 History Allergy Relief] gabapentin 800 mg PO TID 03/15/18 06/12/18 History glipizide 5 mg PO DAILY 03/15/18 06/12/18 History insulin glargine [Lantus Solostar 20 unit SUBCUT BID 03/15/18 06/12/18 History U-100 Insulin] insulin glulisine U-100 [Apidra 0 units SUBCUT ACHS 03/15/18 06/12/18 History SoloStar U-100 Insulin] ipratropium bromide 2.5 ml INHALATION Q6H PRN 03/15/18 06/12/18 History lisinopril 10 mg PO DAILY 03/15/18 06/12/18 History loperamide 2 mg PO Q3H PRN 03/15/18 06/12/18 History loratadine 10 mg PO HS 03/15/18 06/12/18 History lorazepam 1 mg PO TID PRN 03/15/18 06/12/18 History metformin 1,000 mg PO BID 03/15/18 06/12/18 History montelukast [Singulair] 10 mg PO PM 03/15/18 06/12/18 History oxycodone 15 mg PO Q8H PRN 03/15/18 06/12/18 History prednisone 10 mg PO DAILY PRN 03/15/18 06/12/18 History albuterol sulfate 1.25 mg INHALATION QID PRN 06/12/18 06/12/18 History diltiazem HCl 240 mg PO DAILY 06/12/18 06/12/18 History duloxetine [Cymbalta] 60 mg PO DAILY 06/12/18 06/12/18 History ergocalciferol (vitamin D2) 50,000 unit PO LANGSTON@0900 06/12/18 06/12/18 History carezliatzp-nybeofpqf-jbplndkj 1 inh INHALATION DAILY 06/12/18 06/12/18 History [Trelegy Ellipta] pregabalin [Lyrica] 150 mg PO TID 06/12/18 06/12/18 History promethazine 25 mg PO Q6H PRN 06/12/18 06/12/18 History roflumilast 250 mcg PO DAILY 06/12/18 06/12/18 History tamsulosin 0.4 mg PO DAILY 06/12/18 06/12/18 History Patient History Medical History HTN (hypertension) (Chronic) Tobacco use (Chronic) Mood disorder (Chronic) Narcotic dependence (Chronic) Chronic back pain (Chronic) Diabetes mellitus, type II (Chronic) HLD (hyperlipidemia) (Chronic) Atrial fibrillation (Chronic) COPD (chronic obstructive pulmonary disease) (Chronic) Steatosis of liver (Chronic Unknown) Vasodepressor syncope (Chronic) Anxiety (Chronic) Surgical History No pertinent past surgical history (Chronic) Family History Other FHx: heart disease Family history of diabetes mellitus Family history of high blood pressure Family history of kidney disease Social History Preferred Language: Luxembourgish Communication Ability: Effective 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 Beliefs That Will Affect Care: None marital status: Current Living Situation: Spouse current occupational status: unemployed and disabled Other Information That Helps Us Care for You: No Feels Safe at Home: Yes Safety Concerns: Feels Safe At This Time Smoking Status: Never smoker Tobacco Type: smokeless tobacco Do You Dip or Chew Tobacco: Yes (1 can q 2 days) Second Hand Exposure: No Tobacco Cessation Educ ation Requested by Patient: No Hx Alcohol Use: No Hx Substance Use: No Review of Systems Review of Systems: All systems reviewed & are unremarkable except as noted in HPI & below Physical Exam Constitutional: WD/WN, vitals as above Eyes: PERRL, conjunctivae normal, anicteric sclerae ENMT: external ear and nose normal, oropharynx normal Neck: normal visual inspection Respiratory: normal respiratory effort, lungs clear to auscultation Au scultation: + diminished lung sounds Cardiovascular: RRR, no murmur, no edema Gastrointestinal (Abdomen): normal bowel sounds, soft, nontender, no hepatosplenomegaly Musculoskeletal: no cyanosis or clubbing, extremities motor strength 5/5 Skin: no rashes, warm and dry Psychiatric: A+Ox3, euthymic affect Results & Data Vital Signs (Past 12 Hours) Vital Signs Temp Pulse Resp BP Pulse Ox 06/14/18 11:50 36.5 C 97 H 20 129/74 92 06/14/18 11:23 88 18 91 06/14/18 07:41 36.4 C L 80 18 146/72 H 06/14/18 07:16 80 18 91 06/14/18 03:48 36.4 C L 86 20 117/67 90 Laboratory Results Microbiology 06/12/18 07:15 Blood Blood Culture - Preliminary Streptococcus bovis 06/12/18 07:39 Blood Blood Culture - Preliminary Streptococcus species
--- NOTE | 2018-06-14 12:18 | Gastrointestinal Consultation ---
Date of Consultation June 14, 2018 Assessment & Plan (1) Streptococcus bovis infection: 57 year old male with COPD on O2, T2DM, dyslipidemia, HTN, GERD, obesity, fatty liver admitted w/ COPD exacerbation, pneumonia w/ + strep bovis blood cultures. Discussed possible association w/ colonic neoplasm. All questions answered. - Appreciate ongoing ID recommendations - Continue IV ABX - Consider echocardiogram - Would recommend optimization of respiratory status prior to endoscopic evaluation - Will likely plan for OP colonoscopy for colon CA screening and OP EGD if dysphagia returns - Will re-evaluate during rounds. Thank you for allowing us to participate in the care of this patient. Please call with any acute changes, questions or concerns. Please see addendum below with additional recommendation from my supervising physician. Supervising Physician Co-Signing Physician Notes I have seen and examined the patient. PE sig for working to breath, supp o2, CV- rrr, pulm - ctab, abd - soft nt nd +bs + strep bovis bacteremia last colon in 2009- normal. Would recommend outpatient egd for reports of dysphagia, colonoscopy for further evaluation once respiratory issues have improved- patient was in agreement with this plan. History of Present Illness Reason for Consultation: strep bovis Requesting Physician: Phillip Attending Physician: Geraldo Fisher MD History of Present Illness 57 year old male with history of T2DM, dyslipidemia, HTN, GERD, obesity, fatty liver, COPD on home O2 who presented to the ED w/ CP, chills, worsening SOB - admitted w/ COPD exacerbation, pneumonia. GI asked to evaluate for positive blood cultures w/ strep bovis. Pt was seen and evaluated, chart reviewed. at bedside. Pt notes that he presented to the ED w/ CP, SOB. Feels as if his breathing has minimally improved since admission. Denies any GI concerns. No abd pain. No nausea, vomiting. Denies dysphagia to me however review of record shows he had swallow study in May for dysphagia. No GERD. Moves bowels well. No change in BM. No change in stool caliber. No black/bloody stools. No fever, chills, CP, SOB. No weight loss. CT ABD/Pelvis: No acute intra-abdominal or intrapelvic abnormality identified. Normal appendix.Groundglass and alveolar opacities of the lingula compatible with pneumonia. Hepatic steatosis.Small fat filled periumbilical hernia.Additional findings as above. CTA:Multifocal alveolar and ground glass opacities of the left upper lobe and lingula are suggestive of pneumonia. Follow-up imaging to document resolution recommended. EGD 2017: gastritis, otherwise normal Colonoscopy 2010: unremarkable No family history of Colon CA Allergies Allergy/AdvReac Type Severity Reaction Status Date / Time atenolol Allergy Severe DEPRESSION/ Verified 06/12/18 07:00 SUICIDAL amoxicillin Allergy Intermediate "SEVERE" Verified 06/12/18 07:00 DIARRHEA celecoxib Allergy Intermediate FLUID Verified 06/12/18 07:00 RETENTION-WT GAIN clavulanic acid Allergy Intermediate "SEVERE" Verified 06/12/18 07:00 DIARRHEA fentanyl Allergy Mild RASH Verified 06/12/18 07:00 fluoxetine AdvReac Severe HALLUCINATI Verified 06/12/18 07:00 ONS Home Medications Home Medications Medication Instructions Recorded Confirmed Type albuterol sulfate [Ventolin HFA] 2 puff INHALATION Q6H PRN 03/15/18 06/12/18 History aspirin [Aspirin Low Dose] 81 mg PO DAILY 03/15/18 06/12/18 History atorvastatin 80 mg PO HS 03/15/18 06/12/18 History bupropion HCl [Wellbutrin SR] 150 mg PO BID 03/15/18 06/12/18 History doxycycline monohydrate 100 mg PO DAILY PRN 03/15/18 06/12/18 History fluticasone propionate [Flonase 2 spray INTRANASAL DAILY 03/15/18 06/12/18 History Allergy Relief] gabapentin 800 mg PO TID 03/15/18 06/12/18 History glipizide 5 mg PO DAILY 03/15/18 06/12/18 History insulin glargine [Lantus Solostar 20 unit SUBCUT BID 03/15/18 06/12/18 History U-100 Insulin] insulin glulisine U-100 [Apidra 0 units SUBCUT ACHS 03/15/18 06/12/18 History SoloStar U-100 Insulin] ipratropium bromide 2.5 ml INHALATION Q6H PRN 03/15/18 06/12/18 History lisinopril 10 mg PO DAILY 03/15/18 06/12/18 History loperamide 2 mg PO Q3H PRN 03/15/18 06/12/18 History loratadine 10 mg PO HS 03/15/18 06/12/18 History lorazepam 1 mg PO TID PRN 03/15/18 06/12/18 History metformin 1,000 mg PO BID 03/15/18 06/12/18 History montelukast [Singulair] 10 mg PO PM 03/15/18 06/12/18 History oxycodone 15 mg PO Q8H PRN 03/15/18 06/12/18 History prednisone 10 mg PO DAILY PRN 03/15/18 06/12/18 History albuterol sulfate 1.25 mg INHALATION QID PRN 06/12/18 06/12/18 History diltiazem HCl 240 mg PO DAILY 06/12/18 06/12/18 History duloxetine [Cymbalta] 60 mg PO DAILY 06/12/18 06/12/18 History ergocalciferol (vitamin D2) 50,000 unit PO LANGSTON@0900 06/12/18 06/12/18 History deoxvqhulun-ksvljuqws-slegfkkv 1 inh INHALATION DAILY 06/12/18 06/12/18 History [Trelegy Ellipta] pregabalin [Lyrica] 150 mg PO TID 06/12/18 06/12/18 History promethazine 25 mg PO Q6H PRN 06/12/18 06/12/18 History roflumilast 250 mcg PO DAILY 06/12/18 06/12/18 History tamsulosin 0.4 mg PO DAILY 06/12/18 06/12/18 History Patient History Medical History HTN (hypertension) (Chronic) Tobacco use (Chronic) Mood disorder (Chronic) Narcotic dependence (Chronic) Chronic back pain (Chronic) Diabetes mellitus, type II (Chronic) HLD (hyperlipidemia) (Chronic) Atrial fibrillation (Chronic) COPD (chronic obstructive pulmonary disease) (Chronic) Steatosis of liver (Chronic Unknown) Vasodepressor syncope (Chronic) Anxiety (Chronic) Surgical History No pertinent past surgical history (Chronic) Family History Other FHx: heart disease Family history of diabetes mellitus Family history of high blood pressure Family history of kidney disease Social History Preferred Language: Irish Communication Ability: Effective 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 Beliefs That Will Affect Care: None marital status: Current Living Situation: Spouse current occupational status: unemployed and disabled Other Information That Helps Us Care for You: No Feels Safe at Home: Yes Safety Concerns: Feels Safe At This Time Smoking Status: Never smoker Tobacco Type: smokeless tobacco Do You Dip or Chew Tobacco: Yes (1 can q 2 days) Second Hand Exposure: No Tobacco Cessation Education Requested by Patient: No Hx Alcohol Use: No Hx Substance Use: No Review of Systems Constitutional: + chills and + fatigue; no fever and no body aches Respiratory: + cough, + chest congestion, + change in sputum, + dyspnea and + sputum production; no dyspnea on exertion, no hemoptysis, no pain on inspiration, no pain with cough, no snoring, no stopping breathing during sleep and no wheezing Cardiovascular: no chest pain, no radiating jaw, neck or arm pain, no dyspnea on exertion and no palpitations Gastrointestinal: no abdominal pain, no heartburn, no vomiting, no hematemesis, no pain with swallowing, no dysphagia, no cramping, no change in bowel habits, no change in stools, no constipation, no diarrhea/loose stools, no fecal incontinence, no blood in stools and no melena Physical Exam Constitutional: well developed, + ill appearing (working to breath on O2 during conversation) and + obese; no acute distress Respiratory: + cough Auscultation: + diminished lung sounds; no crackles and no wheezes Cardiovascular: RRR, no murmur, no edema Gastrointestinal (Abdomen): normal bowel sounds, soft, nontender, no hepatosplenomegaly Skin: no rashes, warm and dry Results & Data Vital Signs (Past 12 Hours) Vital Signs Temp Pulse Resp BP Pulse Ox 06/14/18 11:50 36.5 C 97 H 20 129/74 92 06/14/18 11:23 88 18 91 06/14/18 07:41 36.4 C L 80 18 146/72 H 06/14/18 07:16 80 18 91 06/14/18 03:48 36.4 C L 86 20 117/67 90 06/14/18 06/14/18 06/14/18 Range/Units 11:55 07:27 05:57 WBC 15.33 H (4.8-10.8) K/uL RBC 4.45 L (4.7-6.1) M/uL Hgb 12.7 L (14.0-18.0) g/dL Hct 38.8 L (42-52) % MCV 87.2 (80-100) fL MCH 28.5 (25-34) pg MCHC 32.7 (32-36) g/dL RDW Std Deviation 42.3 (36.4-46.3) fL RDW Coeff of Leti 13.2 (11.5-14.5) % Plt Count 230 (130-400) K/uL MPV 11.5 H (7.4-10.4) fL Sodium (136-145) mmol/L Potassium (3.5-5.1) mmol/L Chloride (98-107) mmol/L Carbon Dioxide (21-32) mmol/L Anion Gap (3-11) BUN (7-18) mg/dl Creatinine (0.6-1.4) mg/dl Est Cr Clr Drug Dosing ml/min Est GFR ( Amer) Est GFR (Non-Af Amer) BUN/Creatinine Ratio (10-20) Glucose (70-99) mg/dl POC Glucose 203 H 124 H (70-99) Lactate (0.4-2.0) mmol/L Calcium (8.5-10.1) mg/dl Magnesium (1.8-2.4) mg/dl Stl C. diff Tox B Gene 06/14/18 06/13/18 06/13/18 Range/Units 05:57 23:37 20:39 WBC (4.8-10.8) K/uL RBC (4.7-6.1) M/uL Hgb (14.0-18.0) g/dL Hct (42-52) % MCV (80-100) fL MCH (25-34) pg MCHC (32-36) g/dL RDW Std Deviation (36.4-46.3) fL RDW Coeff of Leti (11.5-14.5) % Plt Count (130-400) K/uL MPV (7.4-10.4) fL Sodium 140 (136-145) mmol/L Potassium 4.1 (3.5-5.1) mmol/L Chloride 111 H (98-107) mmol/L Carbon Dioxide 26 (21-32) mmol/L Anion Gap 3.0 (3-11) BUN 18 (7-18) mg/dl Creatinine 0.86 (0.6-1.4) mg/dl Est Cr Clr Drug Dosing 117.5 ml/min Est GFR ( Amer) 110.0 Est GFR (Non-Af Amer) 94.9 BUN/Creatinine Ratio 21.3 H (10-20) Glucose 144 H (70-99) mg/dl POC Glucose 232 H 274 H (70-99) Lactate (0.4-2.0) mmol/L Calcium 8.0 L (8.5-10.1) mg/dl Magnesium 1.9 (1.8-2.4) mg/dl Stl C. diff Tox B Gene 06/13/18 06/13/18 06/13/18 Range/Units 16:20 16:16 16:09 WBC (4.8-10.8) K/uL RBC (4.7-6.1) M/uL Hgb (14.0-18.0) g/dL Hct (42-52) % MCV (80-100) fL MCH (25-34) pg MCHC (32-36) g/dL RDW Std Deviation (36.4-46.3) fL RDW Coeff of Leti (11.5-14.5) % Plt Count (130-400) K/uL MPV (7.4-10.4) fL Sodium (136-145) mmol/L Potassium (3.5-5.1) mmol/L Chloride (98-107) mmol/L Carbon Dioxide (21-32) mmol/L Anion Gap (3-11) BUN (7-18) mg/dl Creatinine (0.6-1.4) mg/dl Est Cr Clr Drug Dosing ml/min Est GFR ( Amer) Est GFR (Non-Af Amer) BUN/Creatinine Ratio (10-20) Glucose (70-99) mg/dl POC Glucose 294 H (70-99) Lactate 3.7 H* (0.4-2.0) mmol/L Calcium (8.5-10.1) mg/dl Magnesium (1.8-2.4) mg/dl Stl C. diff Tox B Gene TNP
[2018-06-14] MEDS ORDERED: GABAPENTIN 800 MG TAB PO SCH (14:00)
[2018-06-14] MEDS: cefTRIAXone SODIUM 2,000 MG in DEXTROSE 5% 50 ML IV SCH (14:08)
[2018-06-14] MEDS: FLUTICASONE/SALMETEROL 250/50 (ADVAIR) 14 PUFF/1 INHALER INH SCH ×2 (14:09→20:31)
--- NOTE | 2018-06-14 18:42 | Hospitalist Progress Note ---
Date of Service June 14, 2018 Assessment & Plan (1) Sepsis: (2) Multifocal pneumonia: Patient is a 57 yr male who presents with worsening SOB, cough for three days and was found to be septic due to pneumonia. CTA:Multifocal alveolar and ground glass opacities of the left upper lobe and lingula are suggestive of pneumonia. Follow-up imaging to document resolution recommended. Influenza Screen is negative Initial Blood cultures:Strep Bovis Repeat Blood culture:pending MRSA screen is negative IV Zosyn>> Transitioned to Rocephin 2gms daily Received IV fluids ECHO: No significant valvular pathology, No valvular lesions consistent with endocarditis Appreciate ID/GI Input Planned for EGD/Colonoscopy as outpatient (3) Acute respiratory failure with hypoxia: (4) COPD exacerbation: Initially hypoxic at 80% Continue IV solu-medrol, duonebs, home inhalers Saturating well on room air Plan to transition to PO prednisone as able (5) Diarrhea: Diarrhea Resolved Stool Culture: Negative R/O C.diff if recurs (6) Atrial fibrillation: Sinus tachycardia on EKG Continue diltiazem, Aspirin (7) Diabetes mellitus, type II: Hb A1C: 7.7 Hold home agents Pharmacy consulted for Glycemic management Monitor BGs (8) HTN (hypertension): Stable Continue current meds (9) HLD (hyperlipidemia): Continue statin (10) Chronic back pain: Managed by PCP Out-patient ortho referral recently placed Continue home IR oxycodone (11) Mood disorder: Stable Continue Wellbutrin, Cymbalta, Ativan PRN (12) Tobacco use: Ophthalmic Medical Technologist to quit smokeless tobacco use DVT Px: Lovenox SQ Code status: Full Code Subjective Patient is seen and examined at bedside Reports cough with brownish expectoration Blood cultures positive for Strep.Bovis SOB improved Denies chest pain, dizziness, abd pain Family at bedside Review of Systems Review of Systems: All systems reviewed & are unremarkable except as noted in HPI & below Physical Exam Physical Exam: Physical Exam: Vitals signs as noted above General Appearance:Obese, no apparent distress Head: normocephalic, Atraumatic Eyes: normal inspection, EOMI Neck: supple, Trachea midline Respiratory/Chest: Decreased breath sounds, CTA Cardiovascular: S1, S2, No murmur Abdomen/GI:Soft, Non tender, Bowel sounds present Extremities/Musculoskelatal:normal inspection, no edema Neurologic/Psych:AAOX3, grossly no focal neurological deficits Skin: normal color, warm Results & Data Vital Signs (Past 12 Hours) Vital Signs Temp Pulse Pulse Resp BP BP Pulse Ox 06/14/18 16:00 37.0 C 92 H 18 113/68 95 06/14/18 15:16 91 H 18 88 L 06/14/18 11:50 36.5 C 97 H 20 129/74 92 06/14/18 11:23 88 18 91 06/14/18 07:41 36.4 C L 80 18 146/72 H 06/14/18 07:16 80 18 91 Laboratory Results Short CBC 06/14/18 Range/Units 05:57 WBC 15.33 H (4.8-10.8) K/uL Hgb 12.7 L (14.0-18.0) g/dL Hct 38.8 L (42-52) % Plt Count 230 (130-400) K/uL BMP 06/14/18 05:57 Sodium 140 Potassium 4.1 Chloride 111 H Carbon Dioxide 26 BUN 18 Creatinine 0.86 Glucose 144 H Calcium 8.0 L
[2018-06-14] MEDS: MONTELUKAST SODIUM 10 MG TABLET PO SCH (20:33)
[2018-06-14] MEDS: ENOXAPARIN INJ 40 MG/0.4 ML SYR SQ SCH (20:34)
[2018-06-14] MEDS: ATORVASTATIN 40 MG TAB PO SCH (20:40)
[2018-06-14] MEDS ORDERED: LORATADINE 10 MG TAB PO SCH (21:00)
[2018-06-14] MEDS ORDERED: INSULIN GLARGINE SOLOSTAR 100 UNITS/ML 3 ML PEN SC SCH (21:00)
[2018-06-15] MEDS: OXYCODONE HCL IR 5 MG TAB (IMMEDIATE RELEASE) PO PRN ×2 (04:57→12:13)
[2018-06-15 06:12] LABS: Hematocrit (blood only) 39.3 % (42-52); Hemoglobin 13.3 g/dL (14.0-18.0); Mean Corpuscular Hgb Conc 33.8 g/dL (32-36); Mean Corpuscular Volume 86.9 fL (80-100); Mean Platelet Volume 10.8 fL (7.4-10.4); Platelet Count 208 K/uL (130-400); RDW Coefficient of Variation 13.2 % (11.5-14.5); RDW Standard Deviation 42.3 fL (36.4-46.3); Red Blood Count 4.52 M/uL (4.7-6.1); White Blood Count 10.89 K/uL (4.8-10.8)
[2018-06-15 06:48] LABS: BUN Creatinine Ratio 18.1 (10-20); Calcium 8.2 mg/dl (8.5-10.1)
[2018-06-15] MEDS: ALBUT/IPRATROP 3MG/0.5MG NEB 3 ML VIAL NEB SCH ×3 (07:04→15:22)
[2018-06-15] MEDS: INSULIN ASPART 100 UNITS/ML 3 ML PEN SC SCH ×2 (08:01→12:07)
[2018-06-15] MEDS: DOXYCYCLINE HYCLATE 100 MG CAP PO SCH (08:19)
[2018-06-15] MEDS: PREGABALIN 150 MG CAP PO SCH ×2 (08:19→13:19)
[2018-06-15] MEDS: methylPREDNISolone 40 MG in SYRINGE 0 ML IV SCH (08:19)
[2018-06-15] MEDS: FLUTICASONE/SALMETEROL 250/50 (ADVAIR) 14 PUFF/1 INHALER INH SCH (08:19)
[2018-06-15] MEDS: FLUTICASONE PROPIONATE NA SPR 16 GM BTL NAE SCH (08:19)
[2018-06-15] MEDS: LISINOPRIL 10 MG TAB PO SCH (08:20)
[2018-06-15] MEDS: ASPIRIN 81 MG ECTAB PO SCH (08:20)
[2018-06-15] MEDS: TAMSULOSIN HCL 0.4 MG CAP PO SCH (08:20)
[2018-06-15] MEDS: DULOXETINE HCL 60 MG CAP PO SCH (08:20)
[2018-06-15] MEDS: ROFLUMILAST 500 MCG TAB PO SCH (08:20)
[2018-06-15] MEDS: BuPROPion SR 150 MG TABCR PO SCH (08:20)
--- NOTE | 2018-06-15 08:34 | Pharmacy Report ---
Pharmacy Glycemic Short Note 2 - Date of Service June 15, 2018 - Glycemic Short BSG Results (Last 24 hours): 06/14/18 06/14/18 06/14/18 11:55 16:50 20:12 Glucose POC Glucose 203 H 212 H 313 H* 06/14/18 06/14/18 06/15/18 20:15 20:20 06:00 Glucose 143 H POC Glucose 247 H 228 H 06/15/18 07:37 Glucose POC Glucose 122 H Outpatient regimen: * Lantus 20 units BID * Apidra per sliding scale * Glipizide 5 mg daily * Metformin 1 gm BID ASSESSMENT: 06/15 * Mr. Marie received 107 units of insulin yesterday (50 of this being basal) * Fasting BSG remains stable; however, postprandial BSGs were elevated yesterday. This was most likely due to not enough prandial insulin as well as a significantly reduced dose of basal insulin. I would like to keep basal/bolus split closer to 40/60 with the steroids on board so will tighten CR further and increase only AM dose of Lantus to provide more coverage during the day. * Will need to follow closely once steroids are tapered further 06/14 * Mr. Marie rec'd 130 units of insulin yesterday (65 of this being basal) * Fasting BSG is much improved today - 124 mg/dL * His steroids were tapered to just once daily yesterday and continue this way today * Will start to reduce basal dose at this point but plan to still be aggressive with bolus insulin with the steroids on board. I'm estimating TDD ~120 units, but will provide only 30-40% of this as basal since steroids mainly affect postprandial BSGs. 06/13: * Patient received total of 107 units of insulin yesterday, of which 70 units were basal insulin * Fasting BSG this am 213 mg/dL - patient to receive 35 units of Lantus per scale * BSGs elevated yesterday likely due to steroids - received solumedrol 125 mg IV x 1, then started on solumedrol 40 iv q 8hs * Steroids continuing this morning - tightened CR with breakfast; Lunchtime BSG trending up despite change in CR at breakfast - tightened further to 4 * Steroids now adjusted to solumedrol 40 mg iv daily starting tomorrow (only received one dose of the Q8 hr dosing this morning) * Anticipate steroids to wear off later this afternoon/evening - will need to loosen tomorrow am 06/12: * I met with Mr. Marie and bedside to corroborate his home regimen. He is unknown to the pharmacy glycemic service. PMHx consistent with: COPD, DM- II, NAFLD, HTN, HLD. His most recent A1C is 8.2% from 11/08/16, Will order an A1C for 06/13/18. * He is being worked up for sepsis and a COPD exacerbation. He is ordered IV vancomycin/zosyn. He was given SM 125mg IV X1 in the ER and is ordered SM 40mg q8. * He did not take any insulin today * By his own admission he admits to taking Lantus 20 units TID when he is hyperglycemic. We discussed that lantus is predominantly a q24 hr insulin and occasionally there are indications for a BID regimen. Pt verbalized understanding. PLAN FOR INPATIENT GLYCEMIC CONTROL: * Continue to hold outpatient oral diabetes medications * Basal insulin- increase, giving higher dose in AM to coincide with AM Solu- medrol * Lantus 30 units qAM * Lantus qPM per the following scale: 20 units for BSG < 160 25 units for BSG 160 or above * Bolus insulin - tighten CF/CR * NovoLog per scale ACHS or Q6hrs while NPO * Goal Range: Low 110 mg/dL - High 140 mg/dL * Correction Factor: 15 mg/dL/unit * Nutritional / Prandial insulin per carb ratio of 1 unit per 3 grams CHO consumed Discharge Recommendations: * A1c indicates improved control as an outpatient * Recommend to continue same regimen on discharge. Patient was instructed earlier to not take his Lantus TID (as patient described) when BSGs are elevated. His sliding scale insulin should be used in this case.
[2018-06-15] MEDS ORDERED: INSULIN GLARGINE SOLOSTAR 100 UNITS/ML 3 ML PEN SC SCH ×2 (09:00)
--- NOTE | 2018-06-15 10:44 | Infectious Disease Progress Nt ---
Date of Service June 15, 2018 Assessment & Plan (1) Streptococcus bovis infection: continue rocephin 2g IV daily, repeat cultures negative. Echo negativecheck sputum culture. strong relationship between S. bovis bloodstream infection and colon malignancy, should have colonoscopy done - planning for outpatient when pulm status improved. Would give 4 weeks IV abx, check weekly cbc, cmp, esr while on abx. Repeat cultures negative, ok for picc line. will follow. follow with ID post d/c from hospital. Discussed with primary service. (2) Sepsis: (3) Multifocal pneumonia: Subjective pt states breathing somewhat better today. on RA during my exam. states he is ambulating in room to bathroom without difficulty. no sob, cp, still with cough. Repeat blood cultures negative x 2 from 06/13. tolerating rocephin. GI eval done yesterday, planning for outpatient colonoscopy when breathing improved. afebrile overnight. wbc improved to 10.8 today. Echo negative for vegetation. All remaining ros reviewed and are negative. asking to go home. Review of Systems Review of Systems: All systems reviewed & are unremarkable except as noted in HPI & below Physical Exam Constitutional: WD/WN, vitals as above Eyes: PERRL, conjunctivae normal, anicteric sclerae ENMT: external ear and nose normal, oropharynx normal Neck: normal visual inspection Respiratory: normal respiratory effort, lungs clear to auscultation Auscultation: + diminished lung sounds Cardiovascular: RRR, no murmur, no edema Gastrointestinal (Abdomen): normal bowel sounds, soft, nontender, no hepatosplenomegaly Musculoskeletal: no cyanosis or clubbing, extremities motor strength 5/5 Skin: no rashes, warm and dry Psychiatric: A+Ox3, euthymic affect Results & Data Vital Signs (Past 12 Hours) Vital Signs Temp Pulse Pulse Resp BP Pulse Ox 06/15/18 07:08 36.5 C 86 20 136/80 90 06/15/18 07:05 98 H 18 92 06/15/18 03:45 36.6 C 93 H 20 142/74 H 92 06/14/18 23:55 94 H Laboratory Results Microbiology 06/13/18 16:20 Stool Shiga Toxin Test - Preliminary 06/13/18 16:20 Stool Stool Culture - Preliminary No Salmonella isolated to date, No Shigella isolated to date, No Campylobacter jejuni isolated to date. 06/13/18 16:09 Blood Blood Culture - Preliminary No growth to date. 06/13/18 15:55 Blood Blood Culture - Preliminary No growth to date. 06/12/18 07:15 Blood Blood Culture - Final Streptococcus bovis 06/12/18 07:39 Blood Blood Culture - Preliminary Streptococcus bovis
[2018-06-15] MEDS: cefTRIAXone SODIUM 2,000 MG in DEXTROSE 5% 50 ML IV SCH (13:21)
--- NOTE | 2018-06-15 15:25 | Hospitalist Progress Note ---
Date of Service June 15, 2018 Assessment & Plan (1) Sepsis: (2) Multifocal pneumonia: Patient is a 57 yr male who presents with worsening SOB, cough for three days and was found to be septic due to pneumonia. Acute Bacteremia-POA CTA:Multifocal alveolar and ground glass opacities of the left upper lobe and lingula are suggestive of pneumonia. Follow-up imaging to document resolution recommended. Influenza Screen is negative Initial Blood cultures:Strep Bovis Repeat Blood culture:No growth to date MRSA screen is negative IV Zosyn>> Transitioned to Rocephin 2gms daily-- Needs 4 weeks of Therapy as per ID Received IV fluids ECHO: No significant valvular pathology, No valvular lesions consistent with endocarditis Appreciate ID/GI Input Planned for EGD/Colonoscopy as outpatient Needs FU with GI and ID as outpatient (3) Acute respiratory failure with hypoxia: (4) COPD exacerbation: Chronic Repsiratory failure--Oxygen dependency: on 2 liters QHS Initially hypoxic at 80% Continue IV solu-medrol, duonebs, home inhalers Saturating well on room air Plan to transition to PO prednisone upon discharge Wean off oxygen as bale (5) Diarrhea: Diarrhea Resolved Stool Culture: Negative R/O C.diff if recurs (6) Atrial fibrillation: Sinus tachycardia on EKG Continue diltiazem, Aspirin (7) Diabetes mellitus, type II: Hb A1C: 7.7 Hold home agents Pharmacy consulted for Glycemic management Monitor BGs (8) HTN (hypertension): Stable Continue current meds (9) HLD (hyperlipidemia): Continue statin (10) Chronic back pain: Managed by PCP Out-patient ortho referral recently placed Continue home IR oxycodone (11) Mood disorder: Stable Continue Wellbutrin, Cymbalta, Ativan PRN (12) Tobacco use: Tripper to quit smokeless tobacco use DVT Px: Lovenox SQ Code status: Full Code Disposition: Plan to discharge home with Home Health today Subjective Patient is seen and examined at bedside Less cough Has chronic back pain Denies chest pain, dizziness, abd pain, SOB Family at bedside Eager to get discharged Planned for PICC line placement today Discussed with ID and GI today Review of Systems Review of Systems: All systems reviewed & are unremarkable except as noted in HPI & below Physical Exam Physical Exam: Physical Exam: Vitals signs as noted above General Appearance:Obese, no apparent distress Head: normocephalic, Atraumatic Eyes: normal inspection, EOMI Neck: supple, Trachea midline Respiratory/Chest: Decreased breath sounds, CTA Cardiovascular: S1, S2, No murmur Abdomen/GI:Soft, Non tender, Bowel sounds present Extremities/Musculoskelatal:normal inspection, no edema Neurologic/Psych:AAOX3, grossly no focal neurological deficits Skin: normal color, warm Results & Data Vital Signs (Past 12 Hours) Vital Signs Temp Pulse Resp BP BP Pulse Ox 06/15/18 11:40 36.4 C L 102 H 16 124/74 96 06/15/18 11:23 92 H 18 96 06/15/18 07:08 36.5 C 86 20 136/80 90 06/15/18 07:05 98 H 18 92 06/15/18 03:45 36.6 C 93 H 20 142/74 H 92 Laboratory Results Short CBC 06/15/18 Range/Units 06:00 WBC 10.89 H (4.8-10.8) K/uL Hgb 13.3 L (14.0-18.0) g/dL Hct 39.3 L (42-52) % Plt Count 208 (130-400) K/uL BMP 06/15/18 06:00 Sodium 143 Potassium 4.0 Chloride 110 H Carbon Dioxide 31 BUN 16 Creatinine 0.88 Glucose 143 H Calcium 8.2 L
--- NOTE | 2018-06-15 16:11 | Discharge Summary ---
Date of Service June 15, 2018 Admission HPI Per Admitting Provider Patient is a 57-year-old male with a PMH of DM II, COPD on 2L NC O2 at bedtime, HTN, HLD, NAFLD, diastolic dysfunction, mood disorder, tobacco use and other medical problems as below who presents with worsening shortness of breath x 3 days. Was seen at the end of April with flulike symptoms and completed course of Tamiflu. [place] better until last week, when he developed worsening dyspnea on exertion and thought to have COPD exacerbation and started on amoxicillin and prednisone. Has continued to feel poorly, endorsing fever, chills, nasal congestion, ear fullness and shortness of breath. Also endorsing 3 episodes of diarrhea daily for the past 5 days. In the ED, found to be tachycardic at 128 with temperature of 37.6 C. Initially hypoxic in mid 80s on room air but improved to 92% on 2 L nasal cannula. White count at 10.7K with lactate elevated at 2.8. Received IV fluids and dose of Levaquin in the ED. blood in stool cultures pending. Chest CTA with multifocal alveolar and groundglass opacities of the left upper lobe and lingula are suggestive of pneumonia. Admission Exam Per Admitting Provider General Appearance: WD/WN, no apparent distress, resting comfortably, appears ill but non-toxic Head: normocephalic, atraumatic Eyes: normal inspection, PERRL, EOMI ENT: hearing grossly normal, pharynx normal (dry mucous membranes) Neck: supple, no JVD, no adenopathy Respiratory/Chest: Bibasilar crackles, scattered wheezing in bilateral lung mejia. No respiratory distress or accessory muscle use. Saturating at 95% on 2L NC O2 Cardiovascular: regular rate, rhythm, no murmur, normal peripheral pulses Abdomen/GI: normal bowel sounds, soft, non-tender to palpation Extremities/Musculoskelatal: normal inspection, no calf tenderness, normal capillary refill, no pedal edema Neurologic/Psych: alert, normal mood/affect, oriented x 3 Skin: normal color, warm/dry Principal Diagnosis Discharge Information Discharge Diagnosis Sepsis Acute Bacteremia Multifocal Pneumonia COPD Exacerbation Discharge Goals Decrease discomfort,Improve disease control, Improve function Discharge Activity Limitations Resume your previous activity Discharge Data Allergies Allergy/AdvReac Type Severity Reaction Status Date / Time atenolol Allergy Severe DEPRESSION/ Verified 06/12/18 07:00 SUICIDAL amoxicillin Allergy Intermediate "SEVERE" Verified 06/12/18 07:00 DIARRHEA celecoxib Allergy Intermediate FLUID Verified 06/12/18 07:00 RETENTION-WT GAIN clavulanic acid Allergy Intermediate "SEVERE" Verified 06/12/18 07:00 DIARRHEA fentanyl Allergy Mild RASH Verified 06/12/18 07:00 fluoxetine AdvReac Severe HALLUCINATI Verified 06/12/18 07:00 ONS Consultations 06/12/18 08:55 ED Decision to Admit Stat 06/14/18 11:39 Consult Infectious Diseases Routine 06/14/18 11:40 Consult Gastroenterology Routine Procedures Performed CTA: 1. Multifocal alveolar and groundglass opacities of the left upper lobe and lingula are suggestive of pneumonia. Follow-up imaging to document resolution recommended. 2. Prominent subcarinal and bilateral hilar lymph nodes, likely reactive. 3. Mild bilateral bronchial wall thickening suggests associated bronchitis. 4. No acute aortic pathology or evidence of pulmonary thromboembolic disease. 5. Mild cardiomegaly. 6. Hepatic steatosis. CT ABD: 1. No acute intra-abdominal or intrapelvic abnormality identified. Normal appendix. 2. Groundglass and alveolar opacities of the lingula compatible with pneumonia. 3. Hepatic steatosis. 4. Small fat filled periumbilical hernia. 5. Additional findings as above. Ordered Studies 06/12/18 06:53 CT abd pelvis IV con only Stat CT angio chest PE protocol Stat Hospital Course (1) Sepsis: (2) Multifocal pneumonia: Patient is a 57 yr male who presents with worsening SOB, cough for three days and was found to be septic due to pneumonia. Acute Bacteremia-POA CTA:Multifocal alveolar and ground glass opacities of the left upper lobe and lingula are suggestive of pneumonia. Follow-up imaging to document resolution recommended. Influenza Screen is negative Initial Blood cultures:Strep Bovis Repeat Blood culture:No growth to date MRSA screen is negative IV Zosyn>> Transitioned to Rocephin 2gms daily-- Needs 4 weeks of Therapy as per ID Received IV fluids ECHO: No significant valvular pathology, No valvular lesions consistent with endocarditis Appreciate ID/GI Input Planned for EGD/Colonoscopy as outpatient Needs FU with GI and ID as outpatient (3) Acute respiratory failure with hypoxia: (4) COPD exacerbation: Chronic Repsiratory failure--Oxygen dependency: on 2 liters QHS Initially hypoxic at 80% Continue IV solu-medrol, duonebs, home inhalers Saturating well on room air Plan to transition to PO prednisone upon discharge Wean off oxygen as sonia (5) Diarrhea: Diarrhea Resolved Stool Culture: Negative R/O C.diff if recurs (6) Atrial fibrillation: Sinus tachycardia on EKG Continue diltiazem, Aspirin (7) Diabetes mellitus, type II: Hb A1C: 7.7 Hold home agents Pharmacy consulted for Glycemic management Monitor BGs (8) HTN (hypertension): Stable Continue current meds (9) HLD (hyperlipidemia): Continue statin (10) Chronic back pain: Managed by PCP Out-patient ortho referral recently placed Continue home IR oxycodone (11) Mood disorder: Stable Continue Wellbutrin, Cymbalta, Ativan PRN (12) Tobacco use: 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 use DVT Px: Lovenox SQ Code status: Full Code Disposition: Plan to discharge home with Home Health today Total Time Total Time Spent Total Time Spent (In Minutes): 45 minutes Total Time Includes: Examination of the Patient, Discharge Planning, Medication Reconciliation, Communication With Other Providers and Other Discharge Plan Discharge Items Patient Disposition: Home - Home Health Services Reason For Visit: SEPSIS, PNA Discharge Diagnosis: Sepsis Acute Bacteremia Multifocal Pneumonia COPD Exacerbation Discharge Goals: Decrease discomfort, Improve disease control and Improve function Activity: Resume your previous activity Exercise/Sports: Gradually increase as tolerated Non-emergency contact: Primary Care Provider, Specialist and Middle [employer] Spanish Teacher Call non-emergency contact if: you have any medication questions, your symptoms worsen, your pain is not controlled, your pain is worsening, your pain is unusual for you, your pain is concerning for you, you have a fever, your wound has increased redness, your wound has increased drainage and your wound pain has increased Follow-up/Referrals: Yann Fraga MD [Primary Care Provider] - Diet: Carb Consistent or DM2 and Heart Healthy Other Ambulatory Orders: Complete Blood Count no Diff (Q7D) Timeframe: 20180622 Location: Determined by Patient Ordered By: Geraldo Fisher Complete Blood Count no Diff (Q7D) Timeframe: 20180629 Location: Determined by Patient Ordered By: Geraldo Fisher Complete Blood Count no Diff (Q7D) Timeframe: 20180706 Location: Determined by Patient Ordered By: Geraldo Fisher Complete Blood Count no Diff (Q7D) Timeframe: 20180713 Location: Determined by Patient Ordered By: Geraldo Fisher Comprehensive Metabolic Panel (Q7D) Timeframe: 20180622 Location: Determined by Patient Ordered By: Geraldo Fisher Comprehensive Metabolic Panel (Q7D) Timeframe: 20180629 Location: Determined by Patient Ordered By: Geraldo Fisher Comprehensive Metabolic Panel (Q7D) Timeframe: 20180706 Location: Determined by Patient Ordered By: Geraldo Teresaa Comprehensive Metabolic Panel (Q7D) Timeframe: 20180713 Location: Determined by Patient Ordered By: Geraldo Blackwood Vangala Erythrocyte Sedimentation Rate (Q7D) Timeframe: 20180629 Location: Determined by Patient Ordered By: Geraldo Teresaa Erythrocyte Sedimentation Rate (Q7D) Timeframe: 20180706 Location: Determined by Patient Ordered By: Geraldo Blackwood Vangala Erythrocyte Sedimentation Rate (Q7D) Timeframe: 20180622 Location: Determined by Patient Ordered By: Geraldo Palaciosgala Erythrocyte Sedimentation Rate (Q7D) Timeframe: 20180713 Location: Determined by Patient Ordered By: Geraldo Fisher Addtl Provider Instructions: Follow up with your for Primary Care on June 19, 2018 at 9:00AM Follow up with your 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 Get EGD/Colonoscopy as outpatient as advised Complete the antibiotics: Ceftriaxone 2gms IV for 4 weeks as per infectious disease doctor Get Blood test (CBC, CMP, ESR ) weekly while on antibiotics Seek immediate medical attention if your symptoms reoccur or worsen Prescriptions: New prednisone 20 mg tablet 40 mg PO DAILY 3 Days Qty: 6 RF: 0 ceftriaxone 2 gram recon soln 2 gm IV DAILY 28 Days Qty: 28 RF: 0 ergocalciferol (vitamin D2) [Vitamin D2] 50,000 unit Capsule 50,000 unit PO [place]@0900 Qty: 0 RF: 0 Continued albuterol sulfate 2.5 mg /3 mL (0.083 %) Solution For Nebulization 1.25 mg INHALATION QID PRN (Reason: Shortness Of Breath Or Wheezing) RF: 0 diltiazem HCl 240 mg Capsule,Extended Release 24 Hr 240 mg PO DAILY RF: 0 tamsulosin 0.4 mg Capsule 0.4 mg PO DAILY RF: 0 promethazine 25 mg Tablet 25 mg PO Q6H PRN (Reason: Nausea And Vomiting) RF: 0 ergocalciferol (vitamin D2) 50,000 unit Capsule 50,000 unit PO LANGSTON@0900 RF: 0 duloxetine [Cymbalta] 60 mg Capsule,Delayed Release(Dr/Ec) 60 mg PO DAILY RF: 0 Trelegy Ellipta 100-62.5-25 mcg Blister With Device 1 inh INHALATION DAILY RF: 0 roflumilast 250 mcg Tablet 250 mcg PO DAILY RF: 0 Lyrica 150 mg Capsule 150 mg PO TID RF: 0 bupropion HCl [Wellbutrin SR] 150 mg Tablet Sustained-Release 12 Hr 150 mg PO BID RF: 0 atorvastatin 80 mg Tablet 80 mg PO HS RF: 0 prednisone 10 mg Tablet 10 mg PO DAILY PRN (Reason: RESCUE KIT) RF: 0 loperamide 2 mg Capsule 2 mg PO Q3H PRN (Reason: Diarrhea) RF: 0 aspirin [Aspirin Low Dose] 81 mg Tablet,Delayed Release (Dr/Ec) 81 mg PO DAILY RF: 0 oxycodone 15 mg Tablet 15 mg PO Q8H PRN (Reason: Pain) RF: 0 doxycycline monohydrate 100 mg Capsule 100 mg PO DAILY PRN (Reason: RESCUE KIT) RF: 0 metformin 1,000 mg Tablet 1,000 mg PO BID RF: 0 lisinopril 10 mg Tablet 10 mg PO DAILY RF: 0 montelukast [Singulair] 10 mg Tablet 10 mg PO PM RF: 0 lorazepam 1 mg Tablet 1 mg PO TID PRN (Reason: Anxiety) RF: 0 fluticasone propionate [Flonase Allergy Relief] 50 mcg/actuation [place],Suspension 2 spray INTRANASAL DAILY RF: 0 loratadine 10 mg Tablet 10 mg PO HS RF: 0 glipizide 5 mg Tablet 5 mg PO DAILY RF: 0 ipratropium bromide 0.02 % Solution 2.5 ml INHALATION Q6H PRN (Reason: Shortness Of Breath) RF: 0 Lantus Solostar U-100 Insulin 100 unit/mL (3 mL) Insulin Pen 20 unit SUBCUT BID RF: 0 Apidra SoloStar U-100 Insulin 100 unit/mL Insulin Pen subcut ACHS RF: 0 albuterol sulfate [Ventolin HFA] 90 mcg/actuation Hfa Aerosol Inhaler 2 puff INHALATION Q6H PRN (Reason: Shortness Of Breath) RF: 0 Stand-Alone Forms: [facility] Discharge Orders: Discharge Order (Routine); Ordered 06/15/18 Ordered By: Geraldo Fisher Admission Data Admit Date/Time: 06/12/18 10:14 Attending Provider: Geraldo Fisher Admit Provider: Olamide Ochoa Primary Care Provider: Yann Fraga Other Providers: Olamide Ochoa ; Page Pagan ; Pema Jovel ; Home,Nursing Agency Service: Telemetry Other Interventions: Discharge Summary Assessment (RN) Last Done: 06/15/18 16:23 DC Date/Time DO NOT enter until pt leaves facility: 06/15/18 17:34
[2018-06-17] MEDS ORDERED: ERGOCALCIFEROL 50,000 UNITS CAP PO SCH ×2 (09:00)
--- OUTSIDE RECORDS SUMMARY | 2018-06-18 15:52 | External Medical Summary | Continuity of Care Document ---
:1960 Author Name Miko Renae, Provider Address Unavailable Unavailable , Care Team Providers Name Role Phone [email or web address] [email or web address] HCRIS HOFFMANN Unavailable Unavailable Unavailable Unavailable Unavailable Problems COPD (chronic obstructive pulmonary disease) (496) (J44.9) Nocturnal hypoxemia (327.24) (G47.34) Obesity (278.00) (E66.9) Chronic bronchitis (491.9) (J42) VAZQUEZ (dyspnea on exertion) (786.09) (R06.09) Physical deconditioning (799.3) (R53.81) GERD (gastroesophageal reflux disease) (530.81) (K21.9) Grade II diastolic dysfunction (429.9) (I51.9) Elevated diaphragm (519.4) (J98.6) Dysphagia (787.20) (R13.10) Chronic pain (338.29) (G89.29) Diabetic neuropathy (250.60) (E11.40) Fatty liver (571.8) (K76.0) Costochondritis (733.6) (M94.0) Benign prostatic hypertrophy with urinary obstruction (600.0 1) (N40.1) Ureteral stone (592.1) (N20.1) Ureteral stone (592.1) (N20.1) Depression (311) (F32.9) Nephrolithiasis (592.0) (N20.0) Hypertension (401.9) (I10) Heartburn (787.1) (R12) Neck pain (723.1) (M54.2) Back Pain Anxiety (300.00) (F41.9) Tingling (782.0) (R20.2) Dizziness (780.4) (R42) Allergies and Adverse Reactions Atenolol TABS (Allergy) Celecoxib (Allergy) Fentanyl-Droperidol SOLN (Allergy) FLUoxetine HCl TABS (Allergy) Morphine Sulfate TABS (Allergy) Reaction : Hallucinations Medications OneTouch Ultra Blue In Vitro Strip Refills: 0 Atrovent HFA 17 MCG/ACT Inhalation Aerosol Solution Refills: 0 OneTouch Test STRP Refills: 0 Fluticasone Propionate 50 MCG/ACT Nasal Suspension Refills: 0 AndroGel 50 MG/5GM (1%) Transdermal Gel Refills: 0 QC Loratadine Allergy Relief 10 MG Oral Tablet Refills: 0 Vitamin D3 88764 UNIT Oral Capsule Refills: 0 metFORMIN HCl ER 500 MG Oral Tablet Extended Release 24 Hour Refills: 0 Methadone HCl - 10 MG Oral Tablet Refills: 0 oxyCODONE HCl - 15 MG Oral Tablet Refills: 0 Daliresp 500 MCG Oral Tablet; TAKE 1 TABLET DAILY. JASMEET Butcher Start: 29-May-2018 Quantity: 30 Refills: 5 Trelegy Ellipta 100-62.5-25 MCG/INH Inha lation Aerosol Powder Breath Activated; one daily BILLIE Butcher Start: 11-May-2018 Quantity: 1 Refills: 0 Incruse Ellipta 62.5 MCG/INH Inhalation Aerosol Powder Breath Activated; USE 1 INHALATION ONCE DAILY. BILLIE Butcher Start: 13-Apr-2018 Quantity: 1 Refills: 5 Loperamide HCl - 2 MG Oral Capsule; TAKE 1 CAPSULE 4 TIMES D AILY NEEDED. Start: 06-Apr-2018 Refills: 0 Atorvastatin Calcium 40 MG Oral Tablet; TAKE 1 TABLET DAILY. Start: 06-Apr-2018 Quantity: 30 90 Tablet Bottle Refills: 5 buPROPion HCl ER (SR) 150 MG Oral Tablet Extended Release 12 Hour; Take 1 tablet twice daily Start: 06-Apr-2018 Refills: 0 Lyrica 50 MG Oral Capsule; TAKE 1 CAPSULE 3 TIMES DAILY. Start: 06-Apr-2018 Refills: 0 Ibuprofen 800 MG Oral Tablet; TAKE 1 TABLET 3 TIMES DAILY AF TER MEALS. Start: 06-Apr-2018 Refills: 0 DULoxetine HCl - 60 MG Oral Capsule Gina yed Release Particles; TAKE 1 CAPSULE BY MOUTH DAILY Start: 06-Apr-2018 Quantity: 30 Refills: 5 Basaglar KwikPen 100 UNIT/ML Subcutaneous Solution Pen-injec tor; 35 U DAILY Start: 06-Apr-2018 Quantity: 3 5 x 3 ML Pen Refills: 3 Nitrofurantoin Macrocrystal 50 MG Oral Capsule; One ta blet every 8 hours Oc Bedoya Start: 18-Jun-2012 Quantity: 28 Refills: 0 Gabapentin 300 MG Oral Capsule Refills: 0 Lisinopril 5 MG Oral Tablet Refills: 0 Aspirin 81 MG TABS Refills: 0 Nasonex SUSP Refills: 0 glipiZIDE XL 2.5 MG Oral Tablet Extended Release 24 Hour Refills: 0 Amitriptyline HCl - 25 MG Oral Tablet Refills: 0 LORazepam 2 MG Oral Tablet Refills: 0 ProAir HFA 108 (90 Base) MCG/ACT Inhalation Aerosol Solution Refills: 0 Procedures Procedures not documented Immunizations Immunizations not documented Family History Unknown Family Member Family history of Diabetes Mellitus (V18.0) Status: Active Comments: Family History Family history of Hypertension (V17.49) Status: Active Comments: Family History Social History - Smoking Status Never smoker Plan of Treatment Planned Encounters Appointment; Ruthie Butcher CRNP Start: 15-Aug-2018 9:30 Req uest Planned Observations Planned Goals not documented Results Video Swallow Laboratory: [facility] Diagnostic Imaging [address] [facility] 24-May-2018 13:58 VIDEO SWALLOW [place], [place] [phone] Fluoroscopy Report Patient: KRISTI BHAKTA Admit Date: MR#: [id number] Address1: [address] [place] [address] Acct ID:[id number] Address2: Date: 1960 [facility] Zip: [id number] Age: 57 Location : [facility] Sex: M Room/Bed: Att Phy: Ruthie Ying CRNP Diagnosis: DYS PHAGIA Tia Phy: Yann Jolly M.D. Service Date: 05/24/18 Fam Phy: Interpreting Phy : Hipolito rosado MD Admit Phy: Ordering P hy: Ruthie Butcher CRNP cc: [place] video swallow CL INICAL HISTORY: DYSPHAGIA COMPARISON STUDY: None. FLU OROSCOPY TIME: 2 minutes. FINDINGS: Swallowing mechanism was i ntact. No tracheal aspiration was identified with thin liqu ids,nectar thick liquids, pudding or crackers with paste. Epiglott ic inversion was normal. Laryngeal elevation was normal. IMP RESSION: 1. Intact swallowing mechanism. No aspiration. 2. Full recommendations by speech pathology to follow. Electronically signed by: Hipolito Leo M.D. 05/24/2018 2: 05 PM Dictated: 05/24/18 1358 Transcribed: 05/24/18 1358 Encounters Appointment; Ruthie Butcher CRNP 08-May-2018 11:30 Encounter Diagnosis: Problem not documented Appointment; Ruthie Butcher CRNP 06-Apr-2018 9:00 Encounter Diagnosis: Problem not documented Appointment; Ruthie Butcher CRNP 27-Mar-2018 9:00 Encounter Diagnosis: Problem not documented Appointment; Ruthie Butcher CRNP 15-Aug-2018 9:30 Encounter Diagnosis: Problem not documented
== END 2018-06-15 17:34 | disposition home health service (06) | DRG 871 ==
LOC: ED 06:20 → 2N 10:14 → SUATTDRO 10:14 → 2N 13:51

== ENCOUNTER 2018-09-18 20:32 | Observation (INO) ==
[2018-09-18] MEDS ORDERED: SODIUM CHLORIDE 0.9% 1000ML 500 ML IV ONE ×2 (21:23→22:08)
[2018-09-18] MEDS ORDERED: ONDANSETRON INJ 2 MG/ML 2 ML VIAL IV STA (21:23)
[2018-09-18] MEDS ORDERED: METOPROLOL TARTRATE 1 MG/ML VIAL IV STA ×2 (21:28→22:34)
[2018-09-18 21:32] LABS: Basophils # (auto) 0.04 K/uL (0-0.2); Basophils % (auto) 0.2 %; Eosinophils # (auto) 0.09 K/uL (0-0.5); Eosinophils % (auto) 0.5 %; Hematocrit (blood only) 43.1 % (42-52); Hemoglobin 14.4 g/dL (14.0-18.0); Immature Granulocytes # (auto) 0.12 K/uL (0.00-0.02); Immature Granulocytes % (auto) 0.6 %; Lymphocytes # (auto) 3.97 K/uL (1.2-3.4); Lymphocytes % (auto) 20.6 %; Mean Corpuscular Hgb Conc 33.4 g/dL (32-36); Mean Corpuscular Volume 88.9 fL (80-100); Monocytes # (auto) 1.64 K/uL (0.11-0.59); Monocytes % (auto) 8.5 %; Neutrophils # (auto) 13.42 K/uL (1.4-6.5); Neutrophils % (auto) 69.6 %; Platelet Count 320 K/uL (130-400); RDW Coefficient of Variation 15.6 % (11.5-14.5); RDW Standard Deviation 50.5 fL (36.4-46.3); Red Blood Count 4.85 M/uL (4.7-6.1); White Blood Count 19.28 K/uL (4.8-10.8)
[2018-09-18 21:39] LABS: Albumin Level 3.4 gm/dl (3.4-5.0); Aspartate Aminotransferase 17 U/L (15-37); BUN Creatinine Ratio 15.9 (10-20); Blood Urea Nitrogen 21 mg/dl (7-18); Calcium 9.6 mg/dl (8.5-10.1); Carbon Dioxide 25 mmol/L (21-32); Chloride 107 mmol/L (98-107); Creatinine Clr Calc Pharmacy 78.7 ml/min; Est GFR (African American) 66.1; Est GFR (Non-African American) 57.1; Glucose 219 mg/dl (70-99); Potassium 4.3 mmol/L (3.5-5.1); Sodium 141 mmol/L (136-145)
[2018-09-18 21:44] LABS: Alanine Aminotransferase 44 U/L (12-78); Albumin Globulin Ratio 1.1 (0.9-2); Alkaline Phosphatase 78 U/L (45-117); Bilirubin,Total 0.5 mg/dl (0.2-1); Globulin 3.2 gm/dl (2.5-4.0); INR 0.9 (0.9-1.1); Partial Thromboplastin Ratio 0.9; Partial Thromboplastin Time 23.1 Seconds (21.0-31.0); Prothrombin Time 9.6 Seconds (9.0-12.0); Total Protein 6.6 gm/dl (6.4-8.2); Troponin I < 0.015 ng/ml (0-0.045)
--- NOTE | 2018-09-18 21:51 | XRay Report ---
XR chest 1V portable CLINICAL HISTORY: cp dyspnea COMPARISON STUDY: 06/12/2018 FINDINGS: Moderate stable cardiomegaly. Mild chronic elevation right hemidiaphragm. Lungs are clear. IMPRESSION: No acute process. The above report was generated using voice recognition software. It may contain grammatical, syntax or spelling errors. Electronically signed by: Alexander Dennison M.D. 09/18/2018 9:50 PM
[2018-09-18] MEDS ORDERED: OPTIRAY 320 125ml IV PRN (21:53)
[2018-09-18 21:57] LABS: Magnesium 1.7 mg/dl (1.8-2.4)
--- NOTE | 2018-09-18 22:10 | CT Scan Report ---
CT angio chest PE protocol CT DOSE: HISTORY: Chest pain. Dyspnea. PE TECHNIQUE: Multiaxial CT images of the chest were performed following the intravenous administration of contrast to evaluate the pulmonary arteries. Maximal intensity projection images were also obtaine d. A dose lowering technique was utilized adhering to the principles of ALARA. COMPARISON STUDY: 06/12/2018 FINDINGS: There is a normal caliber thoracic aorta with no evidence for dissection. There is no evide nce for pulmonary embolus. No pleural effusions. No pneumothorax. The liver and spleen are unremarkab le. No mediastinal or hilar lymphadenopathy. The central airways are patent. The lungs are clear. IMPRESSION: No evidence for pulmonary embolus. The lungs are clear. Minimal dependent basilar atelectasis. The above report was generated using voice recognition software. It may contain grammatical, syntax or spelling errors. Electronically signed by: Alexander Dennison M.D. 09/18/2018 10:08 PM
[2018-09-18] MEDS ORDERED: cefTRIAXone SODIUM 2,000 MG/70 ML BAG IV STA (22:13)
[2018-09-18] MEDS: MAGNESIUM SULFATE / D5W 1 GM/100 ML BAG IV ONE ×2 (22:45→23:18)
--- NOTE | 2018-09-19 00:24 | Emergency Department Note ---
Entered by Sara Ceballos acting as a scribe for Giorgio Carranza MD History of Present Illness General Chief complaint: Cardiac Assessment Stated complaint: CP Time Seen by Provider: 09/18/18 21:15 Source: patient Mode of arrival: ambulatory History of Present Illness Onset (ago): hour(s) 2 Location: chest Pain Consistency: + other (episode ) Quality: + other (tight ) Relieved By: + medication (Prednisone, a rescue pack ) Associated symptoms: + shortness of breath, + syncope and + other (light- headedness, racing heart) Treatments prior to arrival: aspirin and other (2 sprays of Nitroglycerin) The patient is a 57 year old male who presents to the ED via EMS with complaints of an episode of chest pain that began 2 hours prior to arrival. The patient states he felt short of breath and had a tight pain across his chest that last ed for an hour. The patient states that he began to feel his heart race fast during the episode. The patient states that he threw up 2-3 times today. He reports that he felt light-headed, not dizzy. The patient reports that he was lying down in bed when he began to feel his symptoms. The patients states that the patient passed out this afternoon while sitting. The patient states that he was brought to the ED via EMS and was given 2 sprays of Nitroglycerin and baby aspirin with relief of his chest pain. The patient states that he was diagnosed with A-fib 5 years ago and takes medication to treat it daily. 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 The patient states that he took an oxycodone before he came to the ED. The patient states that he has been having diarrhea for a year now. The patient states that he is currently finishing a course of prednisone from a rescue pack he started a week or so ago. He does think that the rescue pack helped his breathing. The patient denies history of a heart attack and heart surgery. The patient denies any history of a blood clot in his lungs. The patient states that he has diabetes. The patient states that he drinks plenty of water. Home Medications Home Medications Medication Instructions Recorded Confirmed Type Apidra SoloStar U-100 Insulin 15 units SUBCUT ACHS 03/15/18 09/18/18 History albuterol sulfate [Ventolin HFA] 2 puff INHALATION Q6H PRN 03/15/18 09/18/18 History aspirin [Aspirin Low Dose] 81 mg PO QAM 03/15/18 09/18/18 History atorvastatin 80 mg PO HS 03/15/18 09/18/18 History bupropion HCl [Wellbutrin SR] 150 mg PO BID 03/15/18 09/18/18 History fluticasone propionate [Flonase 2 spray INTRANASAL HS 03/15/18 09/18/18 History Allergy Relief] glipizide 5 mg PO QAM 03/15/18 09/18/18 History ipratropium bromide 2.5 ml INHALATION Q6H PRN 03/15/18 09/18/18 History lisinopril 10 mg PO QAM 03/15/18 09/18/18 History loperamide 2 mg PO BID PRN 03/15/18 09/18/18 History loratadine 10 mg PO HS 03/15/18 09/18/18 History lorazepam 1 mg PO TID PRN 03/15/18 09/18/18 History metformin 1,000 mg PO BIDM 03/15/18 09/18/18 History montelukast [Singulair] 10 mg PO PM 03/15/18 09/18/18 History albuterol sulfate 2.5 mg INHALATION QID PRN 06/12/18 09/18/18 History diltiazem HCl 240 mg PO QAM 06/12/18 09/18/18 History ergocalciferol (vitamin D2) 50,000 unit PO WK 06/12/18 09/18/18 History promethazine 25 mg PO Q6H PRN 06/12/18 09/18/18 History roflumilast 250 mcg PO HS 06/12/18 09/18/18 History gabapentin 800 mg PO TID 08/28/18 09/18/18 History omeprazole 40 mg PO QAM 08/28/18 09/18/18 History tamsulosin [Flomax] 0.4 mg PO QAM 08/28/18 09/18/18 History doxycycline monohydrate 100 mg PO BID PRN 09/18/18 09/18/18 History duloxetine [Cymbalta] 30 mg PO DAILY 09/18/18 09/18/18 History fluticasone furoate-vilanterol 1 inh INHALATION QAM 09/18/18 09/18/18 History [Breo Ellipta] drspngpmjre-[id number]-[id number] 1 inh INHALATION DAILY 09/18/18 09/18/18 History [Trelegy Ellipta] insulin glargine [Basaglar KwikPen 20 unit SUBCUT BID 09/18/18 09/18/18 History U-100 Insulin] oxycodone [Roxicodone] 15 mg PO Q8H PRN 09/18/18 09/18/18 History prednisone See Rx Instructions .ROUTE 09/18/18 09/18/18 History .COMPLEX PRN Allergies Allergy/AdvReac Type Severity Reaction Status Date / Time atenolol Allergy Severe DEPRESSION/ Verified 08/29/18 07:56 SUICIDAL amoxicillin Allergy Intermediate "SEVERE" Verified 08/29/18 07:56 DIARRHEA celecoxib Allergy Intermediate FLUID Verified 08/29/18 07:56 RETENTION-WT GAIN clavulanic acid Allergy Intermediate "SEVERE" Verified 08/29/18 07:56 DIARRHEA adhesive tape Allergy Mild Rash Verified 08/29/18 07:56 fentanyl Allergy Mild RASH Verified 08/29/18 07:56 fluoxetine AdvReac Severe HALLUCINATI Verified 08/29/18 07:56 ONS Past Med/Surg History Medical History HTN (hypertension) (Chronic) Tobacco use (Chronic) Mood disorder (Chronic) Narcotic dependence (Chronic) Chronic back pain (Chronic) Diabetes mellitus, type II (Chronic) IDDM HLD (hyperlipidemia) (Chronic) Atrial fibrillation (Chronic) COPD (chronic obstructive pulmonary disease) (Chronic) Steatosis of liver (Chronic Unknown) Vasodepressor syncope (Chronic) Anxiety (Chronic) BPH (benign prostatic hyperplasia) Chronic neck pain Depression GERD (gastroesophageal reflux disease) Hearing deficit RIGHT EAR DEAF Kidney stones On anticoagulant therapy ASA 81MG Osteoarthritis Pneumonia MAY 2018 Sleep apnea 2LPM VIA N/C Surgical History History of colonoscopy History of esophagogastroduodenoscopy (EGD) History of lithotripsy S/P PICC central line placement WITH REMOVAL (JUNE 2018) Family History Grandmother Family history of diabetes mellitus Father Family history of high blood pressure FHx: heart disease Social History Preferred Language: Bengali Communication Ability: Effective 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 and A total of 10 systems reviewed and were otherwise negative Physical Exam Vital Signs Vital Signs - 24 hr 09/18/18 20:43 09/18/18 20:50 09/18/18 21:13 Temperature 36.8 C Temperature Source Oral Sepsis Recent Fever Within 48 Hours No Sepsis Action Taken by Nursing No Action Required Pulse Rate 118 H Pulse Rate [Bilateral Apical] 118 H Pulse Rhythm [Bilateral Apical] Regular Respiratory Rate 20 20 Respiratory Effort / Characteristics Non-Labored Non-Labored Respiratory Depth Normal Normal Blood Pressure 142/73 H Blood Pressure [Right Arm] 125/78 Blood Pressure Mean 96 Blood Pressure Mean [Right Arm] 93 Pulse Oximetry 94 94 94 Oxygen Delivery Method Room Air Room Air Room Air 09/18/18 22:05 09/18/18 23:04 Temperature Temperature Source Sepsis Recent Fever Within 48 Hours Sepsis Action Taken by Nursing Pulse Rate Pulse Rate [Bilateral Apical] 100 H 107 H Pulse Rhythm [Bilateral Apical] Respiratory Rate 20 20 Respiratory Effort / Characteristics Respiratory Depth Blood Pressure Blood Pressure [Right Arm] 138/77 134/54 L Blood Pressure Mean Blood Pressure Mean [Right Arm] 97 80 Pulse Oximetry 94 94 Oxygen Delivery Method Room Air Room Air GENERAL: Patient is in no acute distress. HEENT: No acute trauma, normocephalic atraumatic, mucous membranes moist, no nasal congestion, no scleral icterus. NECK: No stridor, no adenopathy, no meningismus, trachea is midline. LUNGS: Clear to auscultation bilaterally, no wheeze, no rhonchi, breath sounds equal. HEART: Tachycardic with a regular rhythm, no murmurs. ABDOMEN: Soft, nontender, bowel sounds positive, no hernias, no peritonitis. EXTREMITIES: No cyanosis or edema, full range of motion of all the joints without pain or difficulty, no signs for acute trauma. NEUROLOGIC: Oriented x 3, no acute motor or sensory deficits, no focal weakness. SKIN: No rash, no jaundice, no diaphoresis. Course 2116: Past medical records reviewed. The patient was evaluated in room A4. A complete history and physical exam was performed. 2231: [facility] He agreed to admit the patient for further management. 2234: I reevaluated the patient at this time and informed him of his admission. Consultations Consultation #1: [facility] agreed to admit the patient for further management. Time: 22:32 Administered Medications Aspirin (Ecotrin Ectab) 81 mg PO QAM TOM Stop: 10/19/18 08:59 Last Admin: 09/19/18 08:38 Dose: 81 mg Documented by: [id number] Bupropion HCl (Wellbutrin-Sr) 150 mg PO BID TOM Stop: 10/19/18 08:59 Last Admin: 09/19/18 08:38 Dose: 150 mg Documented by: [id number] Diltiazem HCl (Cardizem Cd) 240 mg PO QAM TOM Stop: 10/19/18 08:59 Last Admin: 09/19/18 08:37 Dose: 240 mg Documented by: [id number] Duloxetine HCl (Cymbalta) 30 mg PO DAILY TOM Stop: 10/19/18 08:59 Last Admin: 09/19/18 08:38 Dose: Not Given Documented by: [id number] Gabapentin (Neurontin) 800 mg PO TID TOM Stop: 10/19/18 08:59 Last Admin: 09/19/18 08:38 Dose: 800 mg Documented by: [id number] Sodium Chloride (Nss 1000ml) 1,000 mls @ 125 mls/hr IV .Q8H TOM Stop: 10/19/18 00:59 Last Admin: 09/19/18 08:47 Dose: 125 mls/hr Documented by: [id number] Infusion: 09/19/18 08:47 Dose: 125 mls/hr Documented by: [id number] Admin: 09/19/18 01:12 Dose: 125 mls/hr Documented by: [id number] Lisinopril (Zestril) 10 mg PO QAM [facility] Stop: 10/19/18 08:59 Last Admin: 09/19/18 08:39 Dose: 10 mg Documented by: [id number] Miscellaneous (Order Awaiting Action) 1 ea N/A QS [facility] Stop: 10/19/18 00:59 Last Admin: 09/19/18 08:45 Dose: Not Given Documented by: [id number] Admin: 09/19/18 00:48 Dose: Not Given Documented by: [id number] Oxycodone HCl (Roxicodone Immediate Rel) 15 mg PO Q8H PRN PRN Reason: Pain, Severe Stop: 10/03/18 00:26 Last Admin: 09/19/18 05:51 Dose: 15 mg Documented by: [id number] Pantoprazole Sodium (Protonix) 40 mg PO DAILY [facility] Stop: 10/19/18 08:59 Last Admin: 09/19/18 08:38 Dose: 40 mg Documented by: [id number] Tamsulosin HCl (Flomax) 0.4 mg PO QAM [facility] Stop: 10/19/18 08:59 Last Admin: 09/19/18 08:40 Dose: 0.4 mg Documented by: [id number] Discontinued Medications Sodium Chloride (Nss 1000ml) 500 mls @ 999 mls/hr IV .Q31M ONE Stop: 09/18/18 21:53 Last Infusion: 09/18/18 22:06 Dose: 0 mls/hr Documented by: [id number] Admin: 09/18/18 21:38 Dose: 999 mls/hr Documented by: [id number] Magnesium Sulfate/Dextrose (Magnesium Sulfate / D5w) 1 gm in 100 mls @ 100 mls/hr IV ONE ONE Stop: 09/18/18 23:06 Last Infusion: 09/19/18 00:18 Dose: 0 mls/hr Documented by: [id number] Admin: 09/18/18 23:18 Dose: 100 mls/hr Documented by: [id number] Sodium Chloride (Nss 1000ml) 500 mls @ 999 mls/hr IV .Q31M ONE Stop: 09/18/18 22:38 Last Infusion: 09/18/18 23:31 Dose: 0 mls/hr Documented by: [id number] Admin: 09/18/18 22:46 Dose: 999 mls/hr Documented by: [id number] Ceftriaxone Sodium (Rocephin) 2,000 mg in 70 mls @ 140 mls/hr IV NOW STA Stop: 09/18/18 22:42 Last Infusion: 09/18/18 23:31 Dose: 0 mls/hr Documented by: [id number] Admin: 09/18/18 22:45 Dose: 140 mls/hr Documented by: [id number] Insulin Aspart (Novolog Flexpen) 0 units SC Q6 TOM Stop: 10/19/18 05:59 Last Admin: 09/19/18 05:58 Dose: Not Given Documented by: [id number] Cosigned by: [id number] Ioversol (Optiray 320 125ml) 119 ml IV ONCE PRN PRN Reason: Interaction Checking Stop: 09/22/18 21:52 Last Admin: 09/18/18 21:54 Dose: 119 ml Documented by: [id number] Metoprolol Tartrate (Lopressor) 2.5 mg IV NOW STA Stop: 09/18/18 21:29 Last Admin: 09/18/18 21:39 Dose: 2.5 mg Documented by: [id number] Metoprolol Tartrate (Lopressor) 2.5 mg IV NOW STA Stop: 09/18/18 22:35 Last Admin: 09/18/18 23:17 Dose: 2.5 mg Documented by: [id number] Ondansetron HCl (Zofran) 4 mg IV NOW STA Stop: 09/18/18 21:24 Last Admin: 09/18/18 21:39 Dose: 4 mg Documented by: [id number] Medical Decision Making Differential Diagnosis Differential diagnoses include dysthymia, RI, SVT, A-fib, A-flutter, anemia, electrolyte imbalance, PE, pneumonia, infection, renal or liver failure. Medical Records Attestation: I reviewed the patient's medical records. Home Medications Current Medication List: was personally reviewed by me Laboratory Data Attestation: I reviewed the patient's lab results. Result diagrams: 09/19/18 06:02 09/19/18 06:02 Lab Results 09/18/18 09/18/18 09/18/18 Range/Units 20:42 20:42 20:42 WBC 19.28 H (4.8-10.8) K/uL RBC 4.85 (4.7-6.1) M/uL Hgb 14.4 (14.0-18.0) g/dL Hct 43.1 (42-52) % MCV 88.9 (80-100) fL MCH 29.7 (25-34) pg MCHC 33.4 (32-36) g/dL RDW Std Deviation 50.5 H (36.4-46.3) fL RDW Coeff of Leti 15.6 H (11.5-14.5) % Plt Count 320 (130-400) K/uL MPV 12.0 H (7.4-10.4) fL Immature Gran % (Auto) 0.6 % Neut % (Auto) 69.6 % Lymph % (Auto) 20.6 % [place] % (Auto) 8.5 % Eos % (Auto) 0.5 % Baso % (Auto) 0.2 % Immature Gran # (Auto) 0.12 H (0.00-0.02) K/uL Neut # (Auto) 13.42 H (1.4-6.5) K/uL Lymph # (Auto) 3.97 H (1.2-3.4) K/uL [place] # (Auto) 1.64 H (0.11-0.59) K/uL Eos # (Auto) 0.09 (0-0.5) K/uL Baso # (Auto) 0.04 (0-0.2) K/uL PT 9.6 (9.0-12.0) Seconds INR 0.9 (0.9-1.1) APTT 23.1 (21.0-31.0) Seconds PTT Ratio 0.9 Sodium 141 (136-145) mmol/L Potassium 4.3 (3.5-5.1) mmol/L Chloride 107 (98-107) mmol/L Carbon Dioxide 25 (21-32) mmol/L Anion Gap 9.0 (3-11) BUN 21 H (7-18) mg/dl Creatinine 1.35 (0.6-1.4) mg/dl Est Cr Clr Drug Dosing 78.7 ml/min Est GFR ( Amer) 66.1 Est GFR (Non-Af Amer) 57.1 BUN/Creatinine Ratio 15.9 (10-20) Glucose 219 H (70-99) mg/dl Lactate (0.4-2.0) mmol/L Calcium 9.6 (8.5-10.1) mg/dl Magnesium (1.8-2.4) mg/dl Total Bilirubin 0.5 (0.2-1) mg/dl AST 17 (15-37) U/L ALT 44 (12-78) U/L Alkaline Phosphatase 78 (45-117) U/L Troponin I < 0.015 (0-0.045) ng/ml Total Protein 6.6 (6.4-8.2) gm/dl Albumin 3.4 (3.4-5.0) gm/dl Globulin 3.2 (2.5-4.0) gm/dl Albumin/Globulin Ratio 1.1 (0.9-2) Procalcitonin (0-0.5) ng/ml TSH (0.300-4.500) uIu/ml Specimen Hemolysis 09/18/18 09/18/18 09/18/18 Range/Units 20:42 20:42 20:42 WBC (4.8-10.8) K/uL RBC (4.7-6.1) M/uL Hgb (14.0-18.0) g/dL Hct (42-52) % MCV (80-100) fL MCH (25-34) pg MCHC (32-36) g/dL RDW Std Deviation (36.4-46.3) fL RDW Coeff of Leti (11.5-14.5) % Plt Count (130-400) K/uL MPV (7.4-10.4) fL Immature Gran % (Auto) % Neut % (Auto) % Lymph % (Auto) % [place] % (Auto) % Eos % (Auto) % Baso % (Auto) % Immature Gran # (Auto) (0.00-0.02) K/uL Neut # (Auto) (1.4-6.5) K/uL Lymph # (Auto) (1.2-3.4) K/uL [place] # (Auto) (0.11-0.59) K/uL Eos # (Auto) (0-0.5) K/uL Baso # (Auto) (0-0.2) K/uL PT (9.0-12.0) Seconds INR (0.9-1.1) APTT (21.0-31.0) Seconds PTT Ratio Sodium (136-145) mmol/L Potassium (3.5-5.1) mmol/L Chloride (98-107) mmol/L Carbon Dioxide (21-32) mmol/L Anion Gap (3-11) BUN (7-18) mg/dl Creatinine (0.6-1.4) mg/dl Est Cr Clr Drug Dosing ml/min Est GFR ( Amer) Est GFR (Non-Af Amer) BUN/Creatinine Ratio (10-20) Glucose (70-99) mg/dl Lactate (0.4-2.0) mmol/L Calcium (8.5-10.1) mg/dl Magnesium 1.7 L (1.8-2.4) mg/dl Total Bilirubin (0.2-1) mg/dl AST (15-37) U/L ALT (12-78) U/L Alkaline Phosphatase (45-117) U/L Troponin I (0-0.045) ng/ml Total Protein (6.4-8.2) gm/dl Albumin (3.4-5.0) gm/dl Globulin (2.5-4.0) gm/dl Albumin/Globulin Ratio (0.9-2) Procalcitonin < 0.05 (0-0.5) ng/ml TSH 0.516 Cancelled (0.300-4.500) uIu/ml Specimen Hemolysis 09/18/18 Range/Units 22:20 WBC (4.8-10.8) K/uL RBC (4.7-6.1) M/uL Hgb (14.0-18.0) g/dL Hct (42-52) % MCV (80-100) fL MCH (25-34) pg MCHC (32-36) g/dL RDW Std Deviation (36.4-46.3) fL RDW Coeff of Leti (11.5-14.5) % Plt Count (130-400) K/uL MPV (7.4-10.4) fL Immature Gran % (Auto) % Neut % (Auto) % Lymph % (Auto) % [place] % (Auto) % Eos % (Auto) % Baso % (Auto) % Immature Gran # (Auto) (0.00-0.02) K/uL Neut # (Auto) (1.4-6.5) K/uL Lymph # (Auto) (1.2-3.4) K/uL [place] # (Auto) (0.11-0.59) K/uL Eos # (Auto) (0-0.5) K/uL Baso # (Auto) (0-0.2) K/uL PT (9.0-12.0) Seconds INR (0.9-1.1) APTT (21.0-31.0) Seconds PTT Ratio Sodium (136-145) mmol/L Potassium (3.5-5.1) mmol/L Chloride (98-107) mmol/L Carbon Dioxide (21-32) mmol/L Anion Gap (3-11) BUN (7-18) mg/dl Creatinine (0.6-1.4) mg/dl Est Cr Clr Drug Dosing ml/min Est GFR ( Amer) Est GFR (Non-Af Amer) BUN/Creatinine Ratio (10-20) Glucose (70-99) mg/dl Lactate 3.5 H* (0.4-2.0) mmol/L Calcium (8.5-10.1) mg/dl Magnesium (1.8-2.4) mg/dl Total Bilirubin (0.2-1) mg/dl AST (15-37) U/L ALT (12-78) U/L Alkaline Phosphatase (45-117) U/L Troponin I (0-0.045) ng/ml Total Protein (6.4-8.2) gm/dl Albumin (3.4-5.0) gm/dl Globulin (2.5-4.0) gm/dl Albumin/Globulin Ratio (0.9-2) Procalcitonin (0-0.5) ng/ml TSH (0.300-4.500) uIu/ml Specimen Hemolysis Imaging Data Radiologist's Impression: Radiology results as stated below per my review and the radiologist's interpretation: XR chest 1V portable CLINICAL HISTORY: cp dyspnea COMPARISON STUDY: 06/12/2018 FINDINGS: Moderate stable cardiomegaly. Mild chronic elevation right hemidiaphragm. Lungs are clear. IMPRESSION: No acute process. The above report was generated using voice recognition software. It may contain grammatical, syntax or spelling errors. Electronically signed by: Alexander Dennison M.D. 09/18/2018 9:50 PM T angio chest PE protocol CT DOSE: HISTORY: Chest pain. Dyspnea. PE TECHNIQUE: Multiaxial CT images of the chest were performed following the intravenous administration of contrast to evaluate the pulmonary arteries. Maximal intensity projection images were also obtained. A dose lowering technique was utilized adhering to the principles of ALARA. COMPARISON STUDY: 06/12/2018 FINDINGS: There is a normal caliber thoracic aorta with no evidence for dissection. There is no evidence for pulmonary embolus. No pleural effusions. No pneumothorax. The liver and spleen are unremarkable. No mediastinal or hilar lymphadenopathy. The central airways are patent. The lungs are clear. IMPRESSION: No evidence for pulmonary embolus. The lungs are clear. Minimal dependent basilar atelectasis. The above report was generated using voice recognition software. It may contain grammatical, syntax or spelling errors. Electronically signed by: Alexander Dennison M.D. 09/18/2018 10:08 PM ECG Data Attestation: I personally reviewed and interpreted this ECG as follows: Indication: chest pain Rate (beats per minute): 122 Rhythm: sinus tachycardia Findings: + other (diffuse nonspecific ST change); no ST elevation Blood Pressure Blood Pressure Findings: Normal blood pressure MDM Narrative There is a significant leukocytosis at 19,000, this is consistent with infection or possibly the stress of his current situation. No concerning coagulopathy. No kidney failure. Lactic acid level is quite elevated at 3.5, this could be consistent with infection and/or dehydration. Magnesium somewhat low at 1.7. No concerning liver enzyme elevation. EKG shows a sinus tachycardia, no acute ischemia. Cardiac enzyme testing x1 is not consistent with acute cardiac injury. Chest film does not show pneumonia or CHF. Chest CT does not show PE, no pneumonia. The patient received IV ceftriaxone for the possibility of infection. He received IV magnesium. Patient was given IV metoprolol, a total of 5 mg for the higher heart rate. He received IV Zofran for nausea, IV saline for hydration. The patient presents with chest pain which was resolved with nitroglycerin, further cardiac work-up is warranted. He is tachycardic, dizzy, he has a high white blood cell count and elevated lactic acid. Certainly, infection is a possibility. I spoke to the patient and case management. He understands the reason for the hospital stay. The on-call hospitalist was consulted. Impression & Plan Precordial chest pain, Tachycardia, Hypomagnesemia, Leukocytosis Discharge Plan Visit Data *Final* Discharge Date/Time: 09/18/18 23:40 Chief Complaint: Cardiac Assessment Stated Complaint: CP ED Provider: Giorgio Carranza Discharge Problem: Precordial chest pain, Tachycardia, Hypomagnesemia, Leukocytosis Patient Disposition: Admitted As Inpatient Discharge Instructions Interventions: ED Discharge Assessment Last Done: 09/18/18 23:40 Discharge Problem: Leukocytosis Qualifiers: Leukocytosis type: unspecified Qualified Code(s): D72.829 - Elevated white blood cell count, unspecified The scribe's documentation has been prepared under my direction and personally reviewed by me in its entirety. I confirm that the note above accurately reflects all work, treatment, procedures, and medical decision making performed by me.
[2018-09-19] MEDS ORDERED: LOPERAMIDE HCL 2 MG CAP PO PRN (00:27)
[2018-09-19] MEDS ORDERED: XOPENEX/ATROVENT 1.25mg/0.5MG NEB COMBO NEB PRN (00:27)
[2018-09-19] MEDS ORDERED: LORazepam 1 MG TAB PO PRN (00:27)
[2018-09-19] MEDS ORDERED: LEVALBUTEROL 1.25MG/0.5ML NEB INH PRN (00:27)
[2018-09-19] MEDS ORDERED: ONDANSETRON INJ 2 MG/ML 2 ML VIAL IV PRN (00:27)
[2018-09-19] MEDS ORDERED: ACETAMINOPHEN 325 MG TAB PO PRN (00:27)
[2018-09-19] MEDS ORDERED: NITROGLYCERIN SL 0.4 MG/TAB TAB SL PRN (00:27)
[2018-09-19] MEDS ORDERED: PROMETHAZINE HCL 25 MG TAB PO PRN (00:27)
[2018-09-19] MEDS ORDERED: IPRATROPIUM BROMIDE NEB SOLN 0.02% 2.5 ML VIAL INH PRN (00:27)
[2018-09-19] MEDS ORDERED: ALBUTEROL HFA 8 GM INHALER INH PRN (00:27)
[2018-09-19] MEDS ORDERED: GLUCOSE 40% GEL 15 GM TUBE PO PRN (01:00)
[2018-09-19] MEDS ORDERED: GLUCAGON FOR INJ 1 MG VIAL IM PRN (01:00)
[2018-09-19] MEDS ORDERED: DEXTROSE 50% 50 ML SYRINGE IV PRN (01:00)
[2018-09-19] MEDS ORDERED: CARBOHYDRATES FOR HYPOGLYCEMIA PO PRN (01:00)
[2018-09-19] MEDS ORDERED: GLUCOSE 10 TABS/TUBE PO PRN (01:00)
[2018-09-19] MEDS: SODIUM CHLORIDE 0.9% 1000ML 1,000 ML IV SCH ×3 (01:12→16:52)
--- NOTE | 2018-09-19 04:59 | History and Physical Report ---
DATE OF ADMISSION: 09/18/2018 CHIEF COMPLAINT: Chest pain and palpitations. HISTORY OF PRESENT ILLNESS: This is a 57-year-old male with past medical history significant for diabetes, diabetic polyneuropathy, hyperlipidemia, hypotestosteronemia, nocturnal hypoxemia, uses 2 liters while sleeping, diastolic dysfunction, hypertension, vasodepressor syncope, fatty liver disease, severe obesity, GERD, vitamin D deficiency, BPH, chronic pain, depression with anxiety, chews tobacco, who was admitted in [facility] bacteremia with Strep bovis, treated with 4 weeks of IV Rocephin 2 g daily. At that time, echo was fine. He is also status post EGD and colonoscopy with biopsy, which were unremarkable, presents with chest pain. The patient today in the evening had chest pain associated with palpitations, nausea, vomiting at home, he was almost about to pass out, was diaphoretic. EMS was called. In the EMS, 2 doses of nitroglycerin and aspirin were given, which resolved his pain. Currently resting comfortably and hemodynamically stable. He says he is taking prednisone and also antibiotic for the last 10 days for bronchitis which symptoms improved. In the ER because of history of Strep bovis infection, and labs showing leukocytosis and elevated lactic acid he was given 2 g of IV Rocephin. Currently resting comfortably and hemodynamically stable. He has some headache. Denies any blurred vision, no earache, no runny nose, no sore throat, no difficulty swallowing. Has some mild dry cough. Currently no chest pain, no shortness of breath. Currently no nausea, no abdominal pain. He has chronic diarrhea and moved 3 times daily, loose stools, no blood in the stools. Normal bladder movements. No hematuria, has some burning micturition. No swelling in the legs, no rash. Ambulates without any help. Lives with his . Appetite is okay. ALLERGIES: ATENOLOL, FENTANYL, RODRÍGUEZ 2 INHIBITORS, FLUOXETINE, MORPHINE SULFATE. PAST MEDICAL HISTORY: As mentioned above. PAST SURGICAL HISTORY: Colonoscopy, EGDs. MEDICATIONS: Imodium p.o. b.i.d., oxycodone IR 15 mg every 8 hours p.r.n. for severe pain, gabapentin 800 mg p.o. t.i.d.Basaglar Kiwipen 20units BID, doxycycline rescue kit, metformin 1000 mg p.o. b.i.d., prednisone rescue kit, vitamin D 50,000 units once a week, glipizide 7.5 mg p.o. daily, aspirin 81 mg p.o. daily, Lipitor 80 mg p.o. daily, albuterol 2 puffs 4 times a day, Cymbalta 30 mg p.o. daily, lisinopril 10 mg p.o. daily, albuterol nebulization every 4 hours p.r.n., ipratropium every 4 hours p.r.n., Flomax 0.4 mg p.o. daily, Trelegy Ellipta 1 puff daily, diltiazem CD 240 mg p.o. daily, Daliresp 250 mcg daily, Flonase 2 sprays each nostril daily, multivitamins with minerals 1 capsule daily, bupropion 100 mg p.o. b.i.d., Ativan 1 mg p.o. t.i.d. p.r.n., oxygen 2 liters during sleep. FAMILY HISTORY: Significant for mother has allergies, arthritis, asthma. Father has heart disorder, hypertension. Son has allergies. SOCIAL HISTORY: and lives with his . No smoking history, chews tobacco. No alcohol, no drug use. REVIEW OF SYMPTOMS: As per HPI. Rest of review of systems negative. PHYSICAL EXAMINATION: GENERAL: The patient is obese, not in acute distress. VITAL SIGNS: Temperature 36.8, pulse 107, respiratory rate 20, blood pressure 134/54, oxygen 94% on room air. HEENT: No pallor, no icterus. Pupils equal, round, reactive to light. NECK: No JVD, no neck masses, no carotid bruits. CARDIOVASCULAR: S1, S2, regular rate and rhythm, no murmur, no gallop. RESPIRATORY SYSTEM: Normal AP diameter. No accessory muscle use. No wheezing, no crackles. ABDOMEN: Soft, bowel sounds present, nontender. No distention. CENTRAL NERVOUS SYSTEM: Cranial nerves II-XII grossly intact, nonfocal. EXTREMITIES: No edema, no erythema. LABORATORIES: WBC 19, hemoglobin 14.4, hematocrit 43.1, platelets 320. PT 9.6, INR 0.9, APTT 23.1. Sodium 141, potassium 4.3, chloride 107, bicarbonate 25, BUN 21, creatinine 1.3, serum glucose 209, lactate 3.5, calcium 9.6, magnesium 1.7, total bilirubin 0.5, AST 17, ALT 44, alkaline phosphatase 70. Troponin I less than 0.015. Procalcitonin 0.05. CTA of the chest: No evidence of pulmonary embolism. Lungs are clear. Chest x-ray: No acute process. EKG: Sinus tachycardia, rate of 102. No significant change from previous EKG. ASSESSMENT AND PLAN: This is a 57-year-old male who presents with chest pain, palpitation, sweating, nausea, vomiting, currently resolved. 1. Episode of chest pain, sweating, nausea, vomiting and near syncope. Chest pain got resolved with nitroglycerin and aspirin. Currently asymptomatic, resting comfortably. We will observe on medical telemetry floor with serial cardiac enzymes, repeat echocardiogram in the morning. Consult cardiology for further recommendations. We will keep n.p.o. until seen by cardiology. 2. Nausea, vomiting,has chromic diarrhea, could be gastroenteritis. We will keep him n.p.o. gentle fluids and Monitor. 3. Lactic acidosis, etiology unclear. Stable hemodynamics.The patient is getting fluids. We will repeat level. 4. Leukocytosis. White count 19,000, could be from prednisone which he is taking for the last 10 days, but patient has a history of bacteremia with Streptococcus bovis in the past and treated with Rocephin for 1 month in May, so Emergency Room has given 2 grams of IV Rocephin. We will follow the blood cultures and monitor the laboratories.Currently afebrile and hemodynamically stable. 5. History of diabetes. The patient is currently n.p.o. We will cut back on the insulin Lantus to [address] and [address] him on insulin sliding scale. Hold his metformin and glipizide. 6. History of chronic obstructive pulmonary disease. Continue home inhalers and nebulizers p.r.n. 7. Nocturnal hypoxemia. We will continue oxygen at nighttime. 8. Depression. Continue Cymbalta. 9. Blood pressure/hypertension. Continue his lisinopril, Cardizem. 10. History of paroxysmal atrial fibrillation, on Cardizem, not on anticoagulation. On aspirin.Consulting Cardiology. 11. History of benign prostatic hypertrophy. Continue his Flomax. 12. Gastroesophageal reflux disease. Continue proton-pump inhibitor. 13. Deep vein thrombosis prophylaxis, sequential compression devices for now. 14. Disposition: Observation in the medical telemetry floor. Expect to discharge home and follow with family doctor. Level 1 full code. MTDD
[2018-09-19] MEDS: OXYCODONE HCL IR 5 MG TAB (IMMEDIATE RELEASE) PO PRN ×4 (05:51→22:30)
[2018-09-19] MEDS ORDERED: INSULIN ASPART 100 UNITS/ML 3 ML PEN SC SCH (06:00)
[2018-09-19 06:20] LABS: Basophils # (auto) 0.04 K/uL (0-0.2); Basophils % (auto) 0.2 %; Eosinophils # (auto) 0.19 K/uL (0-0.5); Eosinophils % (auto) 1.2 %; Hematocrit (blood only) 43.1 % (42-52); Hemoglobin 14.2 g/dL (14.0-18.0); Immature Granulocytes # (auto) 0.15 K/uL (0.00-0.02); Immature Granulocytes % (auto) 0.9 %; Lymphocytes # (auto) 4.63 K/uL (1.2-3.4); Lymphocytes % (auto) 28.4 %; Mean Corpuscular Hgb Conc 32.9 g/dL (32-36); Mean Corpuscular Volume 88.9 fL (80-100); Mean Platelet Volume 11.1 fL (7.4-10.4); Monocytes # (auto) 1.46 K/uL (0.11-0.59); Neutrophils # (auto) 9.84 K/uL (1.4-6.5); Neutrophils % (auto) 60.3 %; Platelet Count 276 K/uL (130-400); RDW Coefficient of Variation 16.1 % (11.5-14.5); RDW Standard Deviation 51.8 fL (36.4-46.3); Red Blood Count 4.85 M/uL (4.7-6.1); White Blood Count 16.31 K/uL (4.8-10.8)
[2018-09-19 06:51] LABS: Estimated Average Glucose 217 mg/dl; Hemoglobin A1C 9.2 % (4.5-5.6)
[2018-09-19 07:03] LABS: Calcium 8.3 mg/dl (8.5-10.1); Est GFR (African American) 96.2; Potassium 4.2 mmol/L (3.5-5.1)
[2018-09-19] MEDS: dilTIAZem HCL 240 MG CAPCR PO SCH (08:37)
[2018-09-19] MEDS: DULOXETINE HCL 30 MG CAP PO SCH (08:38)
[2018-09-19] MEDS: GABAPENTIN 800 MG TAB PO SCH ×3 (08:38→20:10)
[2018-09-19] MEDS: ASPIRIN 81 MG ECTAB PO SCH (08:38)
[2018-09-19] MEDS: BuPROPion SR 150 MG TABCR PO SCH ×2 (08:38→20:10)
[2018-09-19] MEDS: PANTOprazole 40 MG TAB PO SCH (08:38)
[2018-09-19] MEDS ORDERED: TAMSULOSIN HCL 0.4 MG CAP PO SCH (09:00)
[2018-09-19] MEDS ORDERED: LISINOPRIL 10 MG TAB PO SCH (09:00)
[2018-09-19 09:36] LABS: Appearance Urine Clear (Clear); Bilirubin Urine Negative (Negative); Blood Urine Negative (Negative); Color Urine Yellow; Glucose Urine UA 2+ (Negative); Ketones Urine Negative (Negative); Leukocyte Esterase Urine Negative (Negative); Nitrite Urine Negative (Negative); Protein Urine Negative (Negative); Specific Gravity Urine 1.024 (1.000-1.030); Urobilinogen Urine Negative (Negative)
[2018-09-19] MEDS: INSULIN GLARGINE SOLOSTAR 100 UNITS/ML 3 ML PEN SC SCH ×2 (12:29→20:54)
[2018-09-19] MEDS: INSULIN ASPART 100 UNITS/ML 3 ML PEN SC SCH ×3 (12:46→20:53)
--- NOTE | 2018-09-19 12:55 | Cardiology Consultation ---
Date of Consultation September 19, 2018 Assessment & Plan (1) Atypical chest pain: Symptoms not suggestive of angina with negative cardiac enzymes normal EKG and echocardiogram without wall motion abnormalities Patient does have cardiac risk factors for ischemic heart disease and would recommend stress nuclear imaging post hospital discharge to complete work-up Patient currently be treating for underlying infectious process Follow-up with primary supportability engineer Dr. Greco (2) Vasodepressor syncope: Patient with documented episodes and positive tilt table testing in the past suspect mild exacerbation of complaint in the setting acute illness and current medication usage. After stress testing and pulmonary status stabilization may consider trial of low-dose beta-alana given good response on presentation (3) Tachycardia: As above other acute processes being evaluated. Blood cultures are pending given recent history of sepsis History of Present Illness Reason for Consultation: Dizziness, atypical chest pain Requesting Physician: Dr Powell Attending Physician: Loir Powell MD History of Present Illness Patient is a 57-year-old male complex history which includes past diagnosis of vasodepressive syncope with positive tilt table testing and associated intermittent sinus tachycardia treated with diltiazem. (No atrial fibrillation) Other issues include chronic obstructive lung disease, hospitalization May 2018 with pneumonia strep bovis sepsis. He remains on treatment for nocturnal hypoxia with 2 L nasal cannula carries a history of peripheral neuropathy, hyperlipidemia gastroesophageal reflux disease. Patient notes recent difficulties with pulmonary exacerbation is currently on antibiotic and prednisone therapy with improving bronchitis. Last evening home he began feeling "fuzzy" with intermittent jabbing right chest discomfort followed by a sensation of heart beating harder and faster mild diaphoresis consistent with his past vasodepressor syncopal events. Presented to the emergency room for further evaluation. In the ER he was given aspirin and nitroglycerin though patient specifically denies symptoms consistent with angina or chest pressure. Patient did take an oxycodone prior to presented to the emergency room. He denies fevers chills notes no distinct productive cough dysuria hematuria appetite's been fair. Has been taking medications as prescribed. Did wean from methadone 1 year ago has had persistent diarrhea since. Notes no bleeding difficulties melena hematochezia dysuria hematuria. EGD and colonoscopy recently performed Since admission EKGs have not demonstrated ST segment changes or ischemia heart rates improved with single dose of IV metoprolol. Echocardiogram. Demonstrates preserved LV systolic function and no wall motion abnormalities Allergies Allergy/AdvReac Type Severity Reaction Status Date / Time atenolol Allergy Severe DEPRESSION/ Verified 08/29/18 07:56 SUICIDAL amoxicillin Allergy Intermediate "SEVERE" Verified 08/29/18 07:56 DIARRHEA celecoxib Allergy Intermediate FLUID Verified 08/29/18 07:56 RETENTION-WT GAIN clavulanic acid Allergy Intermediate "SEVERE" Verified 08/29/18 07:56 DIARRHEA adhesive tape Allergy Mild Rash Verified 08/29/18 07:56 fentanyl Allergy Mild RASH Verified 08/29/18 07:56 fluoxetine AdvReac Severe HALLUCINATI Verified 08/29/18 07:56 ONS Home Medications Home Medications Medication Instructions Recorded Confirmed Type Apidra SoloStar U-100 Insulin 15 units SUBCUT ACHS 03/15/18 09/18/18 History albuterol sulfate [Ventolin HFA] 2 puff INHALATION Q6H PRN 03/15/18 09/18/18 History aspirin [Aspirin Low Dose] 81 mg PO QAM 03/15/18 09/18/18 History atorvastatin 80 mg PO HS 03/15/18 09/18/18 History bupropion HCl [Wellbutrin SR] 150 mg PO BID 03/15/18 09/18/18 History fluticasone propionate [Flonase 2 spray INTRANASAL HS 03/15/18 09/18/18 History Allergy Relief] glipizide 5 mg PO QAM 03/15/18 09/18/18 History ipratropium bromide 2.5 ml INHALATION Q6H PRN 03/15/18 09/18/18 History lisinopril 10 mg PO QAM 03/15/18 09/18/18 History loperamide 2 mg PO BID PRN 03/15/18 09/18/18 History loratadine 10 mg PO HS 03/15/18 09/18/18 History lorazepam 1 mg PO TID PRN 03/15/18 09/18/18 History metformin 1,000 mg PO BIDM 03/15/18 09/18/18 History montelukast [Singulair] 10 mg PO PM 03/15/18 09/18/18 History albuterol sulfate 2.5 mg INHALATION QID PRN 06/12/18 09/18/18 History diltiazem HCl 240 mg PO QAM 06/12/18 09/18/18 History ergocalciferol (vitamin D2) 50,000 unit PO WK 06/12/18 09/18/18 History promethazine 25 mg PO Q6H PRN 06/12/18 09/18/18 History roflumilast 250 mcg PO HS 06/12/18 09/18/18 History gabapentin 800 mg PO TID 08/28/18 09/18/18 History omeprazole 40 mg PO QAM 08/28/18 09/18/18 History tamsulosin [Flomax] 0.4 mg PO QAM 08/28/18 09/18/18 History doxycycline monohydrate 100 mg PO BID PRN 09/18/18 09/18/18 History duloxetine [Cymbalta] 30 mg PO DAILY 09/18/18 09/18/18 History fluticasone furoate-vilanterol 1 inh INHALATION QAM 09/18/18 09/18/18 History [Breo Ellipta] [id number] 1 inh INHALATION DAILY 09/18/18 09/18/18 History [Trelegy Ellipta] insulin glargine [Basaglar KwikPen 20 unit SUBCUT BID 09/18/18 09/18/18 History U-100 Insulin] oxycodone [Roxicodone] 15 mg PO Q8H PRN 09/18/18 09/18/18 History prednisone See Rx Instructions .ROUTE 09/18/18 09/18/18 History .COMPLEX PRN Patient History Medical History HTN (hypertension) (Chronic) Tobacco use (Chronic) Mood disorder (Chronic) Narcotic dependence (Chronic) Chronic back pain (Chronic) Diabetes mellitus, type II (Chronic) IDDM HLD (hyperlipidemia) (Chronic) Atrial fibrillation (Chronic) COPD (chronic obstructive pulmonary disease) (Chronic) Steatosis of liver (Chronic Unknown) Vasodepressor syncope (Chronic) Anxiety (Chronic) BPH (benign prostatic hyperplasia) Chronic neck pain Depression GERD (gastroesophageal reflux disease) Hearing deficit RIGHT EAR DEAF Kidney stones On anticoagulant therapy ASA 81MG Osteoarthritis Pneumonia MAY 2018 Sleep apnea 2LPM VIA N/C Surgical History History of colonoscopy History of esophagogastroduodenoscopy (EGD) History of lithotripsy S/P PICC central line placement WITH REMOVAL (JUNE 2018) Family History Grandmother Family history of diabetes mellitus Father Family history of high blood pressure FHx: heart disease Social History Preferred Language: Bulgarian Communication Ability: Effective Military Technician Required: No Beliefs That Will Affect Care: None marital status: Current Living Situation: Spouse current occupational status: unemployed and disabled Other Information That Helps Us Care for You: No Feels Safe at Home: Yes Safety Concerns: Feels Safe At This Time Smoking Status: Former smoker Tobacco Type: smokeless tobacco Second Hand Exposure: No Hx Alcohol Use: No Hx Substance Use: Yes substance use type: prescription drug Last Used Substance: Hours (ago) Review of Systems Review of Systems: All systems reviewed & are unremarkable except as noted in HPI & below Physical Exam Constitutional: WD/WN, vitals as above + obese; no acute distress Eyes: PERRL, conjunctivae normal, anicteric sclerae ENMT: external ear and nose normal, oropharynx normal Neck: trachea midline, no thyromegaly Respiratory: normal respiratory effort, lungs clear to auscultation Cardiovascular: Rate/Rhythm: regular rate and regular rhythm Heart Sounds: normal S1 and normal S2; no gallop and no murmur Palpation: normal PMI Vessels: normal carotid upstroke and radial pulses present; no JVD and no carotid bruit Extremities: no edema Gastrointestinal (Abdomen): normal bowel sounds, soft, nontender, no hepatosplenomegaly Musculoskeletal: no cyanosis or clubbing, extremities motor strength 5/5 Skin: no rashes, warm and dry Neurologic: PERRL, EOMI, accommodation nl, no face palsy, no dysarthria Psychiatric: A+Ox3, euthymic affect Results & Data Vital Signs (Past 12 Hours) Vital Signs Temp Pulse Pulse Resp BP Pulse Ox 09/19/18 10:30 36.7 C 75 19 136/79 91 09/19/18 08:00 75 09/19/18 07:03 36.8 C 69 19 142/78 H 91 09/19/18 03:34 36.4 C L 75 18 114/69 91 Laboratory Results Laboratory Results - last 24 hr 09/18/18 09/18/18 09/18/18 20:42 20:42 20:42 WBC 19.28 H RBC 4.85 Hgb 14.4 Hct 43.1 MCV 88.9 MCH 29.7 MCHC 33.4 RDW Std Deviation 50.5 H RDW Coeff of Leti 15.6 H Plt Count 320 MPV 12.0 H Immature Gran % (Auto) 0.6 Neut % (Auto) 69.6 Lymph % (Auto) 20.6 Treasure % (Auto) 8.5 Eos % (Auto) 0.5 Baso % (Auto) 0.2 Immature Gran # (Auto) 0.12 H Neut # (Auto) 13.42 H Lymph # (Auto) 3.97 H Treasure # (Auto) 1.64 H Eos # (Auto) 0.09 Baso # (Auto) 0.04 PT 9.6 INR 0.9 APTT 23.1 PTT Ratio 0.9 Sodium 141 Potassium 4.3 Chloride 107 Carbon Dioxide 25 Anion Gap 9.0 BUN 21 H Creatinine 1.35 Est Cr Clr Drug Dosing 78.7 Est GFR ( Amer) 66.1 Est GFR (Non-Af Amer) 57.1 BUN/Creatinine Ratio 15.9 Glucose 219 H POC Glucose Estimat Average Glucose Hemoglobin A1c Lactate Calcium 9.6 Magnesium Total Bilirubin 0.5 AST 17 ALT 44 Alkaline Phosphatase 78 Troponin I < 0.015 Total Protein 6.6 Albumin 3.4 Globulin 3.2 Albumin/Globulin Ratio 1.1 Procalcitonin TSH Specimen Hemolysis Urine Color Urine Appearance Urine pH Ur Specific [place] Urine Protein Urine Glucose (UA) Urine Ketones Urine Blood Urine Nitrite Urine Bilirubin Urine Urobilinogen Ur Leukocyte Esterase Hepatitis C Ab Screen 09/18/18 09/18/18 09/18/18 20:42 20:42 20:42 WBC RBC Hgb Hct MCV MCH MCHC RDW Std Deviation RDW Coeff of Leti Plt Count MPV Immature Gran % (Auto) Neut % (Auto) Lymph % (Auto) [place] % (Auto) Eos % (Auto) Baso % (Auto) Immature Gran # (Auto) Neut # (Auto) Lymph # (Auto) [place] # (Auto) Eos # (Auto) Baso # (Auto) PT INR APTT PTT Ratio Sodium Potassium Chloride Carbon Dioxide Anion Gap BUN Creatinine Est Cr Clr Drug Dosing Est GFR ( Amer) Est GFR (Non-Af Amer) BUN/Creatinine Ratio Glucose POC Glucose Estimat Average Glucose Hemoglobin A1c Lactate Calcium Magnesium 1.7 L Total Bilirubin AST ALT Alkaline Phosphatase Troponin I Total Protein Albumin Globulin Albumin/Globulin Ratio Procalcitonin < 0.05 TSH 0.516 Cancelled Specimen Hemolysis Urine Color Urine Appearance Urine pH Ur Specific [place] Urine Protein Urine Glucose (UA) Urine Ketones Urine Blood Urine Nitrite Urine Bilirubin Urine Urobilinogen Ur Leukocyte Esterase Hepatitis C Ab Screen 09/18/18 09/19/18 09/19/18 22:20 00:34 05:50 WBC RBC Hgb Hct MCV MCH MCHC RDW Std Deviation RDW Coeff of Leti Plt Count MPV Immature Gran % (Auto) Neut % (Auto) Lymph % (Auto) [place] % (Auto) Eos % (Auto) Baso % (Auto) Immature Gran # (Auto) Neut # (Auto) Lymph # (Auto) [place] # (Auto) Eos # (Auto) Baso # (Auto) PT INR APTT PTT Ratio Sodium Potassium Chloride Carbon Dioxide Anion Gap BUN Creatinine Est Cr Clr Drug Dosing Est GFR ( Amer) Est GFR (Non-Af Amer) BUN/Creatinine Ratio Glucose POC Glucose 81 Estimat Average Glucose Hemoglobin A1c Lactate 3.5 H* Calcium Magnesium Total Bilirubin AST ALT Alkaline Phosphatase Troponin I < 0.015 Total Protein Albumin Globulin Albumin/Globulin Ratio Procalcitonin TSH Specimen Hemolysis Urine Color Urine Appearance Urine pH Ur Specific [place] Urine Protein Urine Glucose (UA) Urine Ketones Urine Blood Urine Nitrite Urine Bilirubin Urine Urobilinogen Ur Leukocyte Esterase Hepatitis C Ab Screen 09/19/18 09/19/18 09/19/18 06:02 06:02 06:02 WBC 16.31 H RBC 4.85 Hgb 14.2 Hct 43.1 MCV 88.9 MCH 29.3 MCHC 32.9 RDW Std Deviation 51.8 H RDW Coeff of Leti 16.1 H Plt Count 276 MPV 11.1 H Immature Gran % (Auto) 0.9 Neut % (Auto) 60.3 Lymph % (Auto) 28.4 Treasure % (Auto) 9.0 Eos % (Auto) 1.2 Baso % (Auto) 0.2 Immature Gran # (Auto) 0.15 H Neut # (Auto) 9.84 H Lymph # (Auto) 4.63 H Treasure # (Auto) 1.46 H Eos # (Auto) 0.19 Baso # (Auto) 0.04 PT INR APTT PTT Ratio Sodium 145 Potassium 4.2 Chloride 109 H Carbon Dioxide 29 Anion Gap 7.0 BUN 18 Creatinine 0.99 D Est Cr Clr Drug Dosing 107.0 Est GFR ( Amer) 96.2 Est GFR (Non-Af Amer) 83.0 BUN/Creatinine Ratio 18.0 Glucose 77 POC Glucose Estimat Average Glucose Hemoglobin A1c Lactate 2.4 H* Calcium 8.3 L Magnesium 2.0 Total Bilirubin AST ALT Alkaline Phosphatase Troponin I Total Protein Albumin Globulin Albumin/Globulin Ratio Procalcitonin TSH Specimen Hemolysis Urine Color Urine Appearance Urine pH Ur Specific [place] Urine Protein Urine Glucose (UA) Urine Ketones Urine Blood Urine Nitrite Urine Bilirubin Urine Urobilinogen Ur Leukocyte Esterase Hepatitis C Ab Screen 09/19/18 09/19/18 09/19/18 06:02 06:02 06:02 WBC RBC Hgb Hct MCV MCH MCHC RDW Std Deviation RDW Coeff of Leti Plt Count MPV Immature Gran % (Auto) Neut % (Auto) Lymph % (Auto) [place] % (Auto) Eos % (Auto) Baso % (Auto) Immature Gran # (Auto) Neut # (Auto) Lymph # (Auto) [place] # (Auto) Eos # (Auto) Baso # (Auto) PT INR APTT PTT Ratio Sodium Potassium Chloride Carbon Dioxide Anion Gap BUN Creatinine Est Cr Clr Drug Dosing Est GFR ( Amer) Est GFR (Non-Af Amer) BUN/Creatinine Ratio Glucose POC Glucose Estimat Average Glucose 217 Hemoglobin A1c 9.2 H Lactate Calcium Magnesium Total Bilirubin AST ALT Alkaline Phosphatase Troponin I < 0.015 Total Protein Albumin Globulin Albumin/Globulin Ratio Procalcitonin TSH Specimen Hemolysis Urine Color Urine Appearance Urine pH Ur Specific [place] Urine Protein Urine Glucose (UA) Urine Ketones Urine Blood Urine Nitrite Urine Bilirubin Urine Urobilinogen Ur Leukocyte Esterase Hepatitis C Ab Screen Neg 09/19/18 09/19/18 09/19/18 09:05 11:23 12:39 WBC RBC Hgb Hct MCV MCH MCHC RDW Std Deviation RDW Coeff of Leti Plt Count MPV Immature Gran % (Auto) Neut % (Auto) Lymph % (Auto) [place] % (Auto) Eos % (Auto) Baso % (Auto) Immature Gran # (Auto) Neut # (Auto) Lymph # (Auto) [place] # (Auto) Eos # (Auto) Baso # (Auto) PT INR APTT PTT Ratio Sodium Potassium Chloride Carbon Dioxide Anion Gap BUN Creatinine Est Cr Clr Drug Dosing Est GFR ( Amer) Est GFR (Non-Af Amer) BUN/Creatinine Ratio Glucose POC Glucose 88 Estimat Average Glucose Hemoglobin A1c Lactate Calcium Magnesium Total Bilirubin AST ALT Alkaline Phosphatase Troponin I Pending Total Protein Albumin Globulin Albumin/Globulin Ratio Procalcitonin TSH Specimen Hemolysis Urine Color Yellow Urine Appearance Clear Urine pH 5.0 Ur Specific [place] 1.024 Urine Protein Negative Urine Glucose (UA) 2+ H Urine Ketones Negative Urine Blood Negative Urine Nitrite Negative Urine Bilirubin Negative Urine Urobilinogen Negative Ur Leukocyte Esterase Negative Hepatitis C Ab Screen Diagnostic Findings Chest CTA 09/18/2018 FINDINGS: There is a normal caliber thoracic aorta with no evidence for dissection. There is no evidence for pulmonary embolus. No pleural effusions. No pneumothorax. The liver and spleen are unremarkable. No mediastinal or hilar lymphadenopathy. The central airways are patent. The lungs are clear. IMPRESSION: No evidence for pulmonary embolus. The lungs are clear. Minimal dependent basilar atelectasis. ECG Additional Comments: 19-SEP-2018 06:56:07 [facility]-D ROUTINE RETRIEVAL Normal sinus rhythm Normal ECG When compared with ECG of 18-SEP-2018 20:34, (unconfirmed) Vent. rate has decreased BY 55 BPM Confirmed by Ziyad Alves ([id number]) on 09/19/2018 12:16:34 PM
--- NOTE | 2018-09-19 20:03 | Hospitalist Progress Note ---
Date of Service September 19, 2018 Assessment & Plan (1) Atypical chest pain: ASSESSMENT AND PLAN: This is a 57-year-old male who presents with chest pain, palpitation, sweating, nausea, vomiting, currently resolved. 1. Episode of chest pain, sweating, nausea, vomiting and near syncope. Acute coronary syndrome ruled out EKG: No signs of ischemia Troponins: Negative Cardiology consulted Orthostatic hypotension Gentle IV fluids may need to hold Flomax but will discuss with patient Continue to monitor 2. Nausea, vomiting,has chromic diarrhea, could be gastroenteritis. -Denies nausea vomiting or diarrhea today 3. Lactic acidosis, etiology unclear. Level improved from 3.5-2.4 4. Leukocytosis. White count 19,000, could be from prednisone which he is taking for the last 10 days, but patient has a history of bacteremia with Streptococcus bovis in the past and treated with Rocephin for 1 month in May, so Emergency Room has given 2 grams of IV Rocephin. W -Blood cultures pending Remains afebrile Follow-up blood cultures 5. History of diabetes. - cut back on the insulin Lantus to [address] him on insulin sliding scale. Hold his metformin and glipizide. 6. History of chronic obstructive pulmonary disease. Continue home inhalers and nebulizers p.r.n. 7. Nocturnal hypoxemia. We will continue oxygen at nighttime. 8. Depression. Continue Cymbalta. 9. Blood pressure/hypertension. Continue his lisinopril, Cardizem. 10. History of paroxysmal atrial fibrillation, on Cardizem, not on anticoagulation. On aspirin.Consulting Cardiology. 11. History of benign prostatic hypertrophy. Continue his Flomax. 12. Gastroesophageal reflux disease. Continue proton-pump inhibitor. 13. Deep vein thrombosis prophylaxis, sequential compression devices for now. 14. Disposition: Observation in the medical telemetry floor. Expect to discharge home and follow with family doctor. Level 1 full code. Subjective Follow-up for chest pain Seen resting in bed, comfortable, no distress, in good spirits No chest pain occurring since admission Denies chest pain, shortness of breath, palpitations, dizziness Plan the afternoon, patient reported lightheadedness after walking to the bathroom No other symptoms Review of Systems Review of Systems: All systems reviewed & are unremarkable except as noted in HPI & below Physical Exam Physical Exam: General- oriented x 3, not in distress, speaks in sentences with no effort or accessory muscle use Head- atraumatic Eyes- PERRL, EOMI, anicteric ENT- oropharynx clear Neck- supple, no JVD, no adenopathy, no thyromegaly; carotids +2/2, no bruits appreciated Lungs- clear to auscultation bilaterally, no rales/wheezes Heart- normal rate, regular rhythm; no murmur, no gallop, no rub appreciated Abdomen- normal bowel sounds, nondistended, soft, nontender, no masses or hepatosplenomegaly Extremities- no pretibial edema, no calf tenderness; peripheral pulses intact Neuro- alert, oriented x 3; CN 2-12 grossly intact; motor 5/5 bilaterally;sensation 100% on all extremities; no other gross focal neurologic deficits Skin- warm & dry Results & Data Vital Signs (Past 12 Hours) Vital Signs Temp Pulse Pulse Resp BP Pulse Ox 09/19/18 16:00 86 09/19/18 15:20 36.6 C 80 18 123/76 92 09/19/18 10:30 36.7 C 75 19 136/79 91 Laboratory Results Laboratory Results - last 24 hr 09/18/18 09/18/18 09/18/18 20:42 20:42 20:42 WBC 19.28 H RBC 4.85 Hgb 14.4 Hct 43.1 MCV 88.9 MCH 29.7 MCHC 33.4 RDW Std Deviation 50.5 H RDW Coeff of Leti 15.6 H Plt Count 320 MPV 12.0 H Immature Gran % (Auto) 0.6 Neut % (Auto) 69.6 Lymph % (Auto) 20.6 [place] % (Auto) 8.5 Eos % (Auto) 0.5 Baso % (Auto) 0.2 Immature Gran # (Auto) 0.12 H Neut # (Auto) 13.42 H Lymph # (Auto) 3.97 H [place] # (Auto) 1.64 H Eos # (Auto) 0.09 Baso # (Auto) 0.04 PT 9.6 INR 0.9 APTT 23.1 PTT Ratio 0.9 Sodium 141 Potassium 4.3 Chloride 107 Carbon Dioxide 25 Anion Gap 9.0 BUN 21 H Creatinine 1.35 Est Cr Clr Drug Dosing 78.7 Est GFR ( Amer) 66.1 Est GFR (Non-Af Amer) 57.1 BUN/Creatinine Ratio 15.9 Glucose 219 H POC Glucose Estimat Average Glucose Hemoglobin A1c Lactate Calcium 9.6 Magnesium Total Bilirubin 0.5 AST 17 ALT 44 Alkaline Phosphatase 78 Troponin I < 0.015 Total Protein 6.6 Albumin 3.4 Globulin 3.2 Albumin/Globulin Ratio 1.1 Procalcitonin TSH Specimen Hemolysis Urine Color Urine Appearance Urine pH Ur Specific [place] Urine Protein Urine Glucose (UA) Urine Ketones Urine Blood Urine Nitrite Urine Bilirubin Urine Urobilinogen Ur Leukocyte Esterase Hepatitis C Ab Screen 09/18/18 09/18/18 09/18/18 20:42 20:42 20:42 WBC RBC Hgb Hct MCV MCH MCHC RDW Std Deviation RDW Coeff of Leti Plt Count MPV Immature Gran % (Auto) Neut % (Auto) Lymph % (Auto) [place] % (Auto) Eos % (Auto) Baso % (Auto) Immature Gran # (Auto) Neut # (Auto) Lymph # (Auto) [place] # (Auto) Eos # (Auto) Baso # (Auto) PT INR APTT PTT Ratio Sodium Potassium Chloride Carbon Dioxide Anion Gap BUN Creatinine Est Cr Clr Drug Dosing Est GFR ( Amer) Est GFR (Non-Af Amer) BUN/Creatinine Ratio Glucose POC Glucose Estimat Average Glucose Hemoglobin A1c Lactate Calcium Magnesium 1.7 L Total Bilirubin AST ALT Alkaline Phosphatase Troponin I Total Protein Albumin Globulin Albumin/Globulin Ratio Procalcitonin < 0.05 TSH 0.516 Cancelled Specimen Hemolysis Urine Color Urine Appearance Urine pH Ur Specific [place] Urine Protein Urine Glucose (UA) Urine Ketones Urine Blood Urine Nitrite Urine Bilirubin Urine Urobilinogen Ur Leukocyte Esterase Hepatitis C Ab Screen 09/18/18 09/19/18 09/19/18 22:20 00:34 05:50 WBC RBC Hgb Hct MCV MCH MCHC RDW Std Deviation RDW Coeff of Leti Plt Count MPV Immature Gran % (Auto) Neut % (Auto) Lymph % (Auto) [place] % (Auto) Eos % (Auto) Baso % (Auto) Immature Gran # (Auto) Neut # (Auto) Lymph # (Auto) [place] # (Auto) Eos # (Auto) Baso # (Auto) PT INR APTT PTT Ratio Sodium Potassium Chloride Carbon Dioxide Anion Gap BUN Creatinine Est Cr Clr Drug Dosing Est GFR ( Amer) Est GFR (Non-Af Amer) BUN/Creatinine Ratio Glucose POC Glucose 81 Estimat Average Glucose Hemoglobin A1c Lactate 3.5 H* Calcium Magnesium Total Bilirubin AST ALT Alkaline Phosphatase Troponin I < 0.015 Total Protein Albumin Globulin Albumin/Globulin Ratio Procalcitonin TSH Specimen Hemolysis Urine Color Urine Appearance Urine pH Ur Specific [place] Urine Protein Urine Glucose (UA) Urine Ketones Urine Blood Urine Nitrite Urine Bilirubin Urine Urobilinogen Ur Leukocyte Esterase Hepatitis C Ab Screen 09/19/18 09/19/18 09/19/18 06:02 06:02 06:02 WBC 16.31 H RBC 4.85 Hgb 14.2 Hct 43.1 MCV 88.9 MCH 29.3 MCHC 32.9 RDW Std Deviation 51.8 H RDW Coeff of Leti 16.1 H Plt Count 276 MPV 11.1 H Immature Gran % (Auto) 0.9 Neut % (Auto) 60.3 Lymph % (Auto) 28.4 [place] % (Auto) 9.0 Eos % (Auto) 1.2 Baso % (Auto) 0.2 Immature Gran # (Auto) 0.15 H Neut # (Auto) 9.84 H Lymph # (Auto) 4.63 H [place] # (Auto) 1.46 H Eos # (Auto) 0.19 Baso # (Auto) 0.04 PT INR APTT PTT Ratio Sodium 145 Potassium 4.2 Chloride 109 H Carbon Dioxide 29 Anion Gap 7.0 BUN 18 Creatinine 0.99 D Est Cr Clr Drug Dosing 107.0 Est GFR ( Amer) 96.2 Est GFR (Non-Af Amer) 83.0 BUN/Creatinine Ratio 18.0 Glucose 77 POC Glucose Estimat Average Glucose Hemoglobin A1c Lactate 2.4 H* Calcium 8.3 L Magnesium 2.0 Total Bilirubin AST ALT Alkaline Phosphatase Troponin I Total Protein Albumin Globulin Albumin/Globulin Ratio Procalcitonin TSH Specimen Hemolysis Urine Color Urine Appearance Urine pH Ur Specific [place] Urine Protein Urine Glucose (UA) Urine Ketones Urine Blood Urine Nitrite Urine Bilirubin Urine Urobilinogen Ur Leukocyte Esterase Hepatitis C Ab Screen 09/19/18 09/19/18 09/19/18 06:02 06:02 06:02 WBC RBC Hgb Hct MCV MCH MCHC RDW Std Deviation RDW Coeff of Leti Plt Count MPV Immature Gran % (Auto) Neut % (Auto) Lymph % (Auto) [place] % (Auto) Eos % (Auto) Baso % (Auto) Immature Gran # (Auto) Neut # (Auto) Lymph # (Auto) [place] # (Auto) Eos # (Auto) Baso # (Auto) PT INR APTT PTT Ratio Sodium Potassium Chloride Carbon Dioxide Anion Gap BUN Creatinine Est Cr Clr Drug Dosing Est GFR ( Amer) Est GFR (Non-Af Amer) BUN/Creatinine Ratio Glucose POC Glucose Estimat Average Glucose 217 Hemoglobin A1c 9.2 H Lactate Calcium Magnesium Total Bilirubin AST ALT Alkaline Phosphatase Troponin I < 0.015 Total Protein Albumin Globulin Albumin/Globulin Ratio Procalcitonin TSH Specimen Hemolysis Urine Color Urine Appearance Urine pH Ur Specific [place] Urine Protein Urine Glucose (UA) Urine Ketones Urine Blood Urine Nitrite Urine Bilirubin Urine Urobilinogen Ur Leukocyte Esterase Hepatitis C Ab Screen Neg 09/19/18 09/19/18 09/19/18 09:05 11:23 12:39 WBC RBC Hgb Hct MCV MCH MCHC RDW Std Deviation RDW Coeff of Leti Plt Count MPV Immature Gran % (Auto) Neut % (Auto) Lymph % (Auto) [place] % (Auto) Eos % (Auto) Baso % (Auto) Immature Gran # (Auto) Neut # (Auto) Lymph # (Auto) [place] # (Auto) Eos # (Auto) Baso # (Auto) PT INR APTT PTT Ratio Sodium Potassium Chloride Carbon Dioxide Anion Gap BUN Creatinine Est Cr Clr Drug Dosing Est GFR ( Amer) Est GFR (Non-Af Amer) BUN/Creatinine Ratio Glucose POC Glucose 88 Estimat Average Glucose Hemoglobin A1c Lactate Calcium Magnesium Total Bilirubin AST ALT Alkaline Phosphatase Troponin I < 0.015 Total Protein Albumin Globulin Albumin/Globulin Ratio Procalcitonin TSH Specimen Hemolysis Urine Color Yellow Urine Appearance Clear Urine pH 5.0 Ur Specific [place] 1.024 Urine Protein Negative Urine Glucose (UA) 2+ H Urine Ketones Negative Urine Blood Negative Urine Nitrite Negative Urine Bilirubin Negative Urine Urobilinogen Negative Ur Leukocyte Esterase Negative Hepatitis C Ab Screen 09/19/18 09/19/18 13:21 16:30 WBC RBC Hgb Hct MCV MCH MCHC RDW Std Deviation RDW Coeff of Leti Plt Count MPV Immature Gran % (Auto) Neut % (Auto) Lymph % (Auto) [place] % (Auto) Eos % (Auto) Baso % (Auto) Immature Gran # (Auto) Neut # (Auto) Lymph # (Auto) [place] # (Auto) Eos # (Auto) Baso # (Auto) PT INR APTT PTT Ratio Sodium Potassium Chloride Carbon Dioxide Anion Gap BUN Creatinine Est Cr Clr Drug Dosing Est GFR ( Amer) Est GFR (Non-Af Amer) BUN/Creatinine Ratio Glucose POC Glucose 166 H 112 H Estimat Average Glucose Hemoglobin A1c Lactate Calcium Magnesium Total Bilirubin AST ALT Alkaline Phosphatase Troponin I Total Protein Albumin Globulin Albumin/Globulin Ratio Procalcitonin TSH Specimen Hemolysis Urine Color Urine Appearance Urine pH Ur Specific [place] Urine Protein Urine Glucose (UA) Urine Ketones Urine Blood Urine Nitrite Urine Bilirubin Urine Urobilinogen Ur Leukocyte Esterase Hepatitis C Ab Screen
[2018-09-19] MEDS: MONTELUKAST SODIUM 10 MG TABLET PO SCH (20:09)
[2018-09-19] MEDS: ROFLUMILAST 500 MCG TAB PO SCH (20:09)
[2018-09-19] MEDS: ATORVASTATIN 40 MG TAB PO SCH (20:09)
[2018-09-19] MEDS: LORATADINE 10 MG TAB PO SCH (20:10)
[2018-09-19] MEDS: FLUTICASONE PROPIONATE NA SPR 16 GM BTL SCH (20:10)
[2018-09-20] MEDS: SODIUM CHLORIDE 0.9% 1000ML 1,000 ML IV SCH ×2 (01:09→08:45)
[2018-09-20] MEDS: OXYCODONE HCL IR 5 MG TAB (IMMEDIATE RELEASE) PO PRN ×2 (06:21→16:22)
[2018-09-20] MEDS: INSULIN ASPART 100 UNITS/ML 3 ML PEN SC SCH ×4 (07:59→21:18)
[2018-09-20] MEDS: INSULIN GLARGINE SOLOSTAR 100 UNITS/ML 3 ML PEN SC SCH ×2 (08:04→21:15)
[2018-09-20] MEDS: BuPROPion SR 150 MG TABCR PO SCH ×2 (08:47→20:35)
[2018-09-20] MEDS: PANTOprazole 40 MG TAB PO SCH (08:47)
[2018-09-20] MEDS: DULOXETINE HCL 30 MG CAP PO SCH (08:47)
[2018-09-20] MEDS: GABAPENTIN 800 MG TAB PO SCH ×3 (08:48→20:34)
[2018-09-20] MEDS: dilTIAZem HCL 240 MG CAPCR PO SCH (08:48)
[2018-09-20] MEDS: ASPIRIN 81 MG ECTAB PO SCH (08:49)
[2018-09-20 09:24] LABS: Basophils # (auto) 0.06 K/uL (0-0.2); Basophils % (auto) 0.5 %; Eosinophils # (auto) 0.16 K/uL (0-0.5); Eosinophils % (auto) 1.2 %; Hematocrit (blood only) 42.7 % (42-52); Hemoglobin 13.6 g/dL (14.0-18.0); Immature Granulocytes # (auto) 0.09 K/uL (0.00-0.02); Immature Granulocytes % (auto) 0.7 %; Lymphocytes # (auto) 4.25 K/uL (1.2-3.4); Mean Corpuscular Hgb Conc 31.9 g/dL (32-36); Mean Corpuscular Volume 90.3 fL (80-100); Mean Platelet Volume 11.7 fL (7.4-10.4); Monocytes # (auto) 0.92 K/uL (0.11-0.59); Monocytes % (auto) 7.1 %; Neutrophils # (auto) 7.39 K/uL (1.4-6.5); Neutrophils % (auto) 57.5 %; Platelet Count 271 K/uL (130-400); Red Blood Count 4.73 M/uL (4.7-6.1); White Blood Count 12.87 K/uL (4.8-10.8)
[2018-09-20 09:53] LABS: BUN Creatinine Ratio 13.5 (10-20); Calcium 8.6 mg/dl (8.5-10.1); Creatinine Clr Calc Pharmacy 105.1 ml/min; Est GFR (African American) 93.9; Potassium 4.2 mmol/L (3.5-5.1)
[2018-09-20] MEDS ORDERED: Nursing to Pharmacy Communication ONE (16:42)
--- NOTE | 2018-09-20 17:44 | Hospitalist Progress Note ---
Date of Service September 20, 2018 Assessment & Plan (1) Atypical chest pain: ASSESSMENT AND PLAN: This is a 57-year-old male who presents with chest pain, palpitation, sweating, nausea, vomiting, currently resolved. 1. Episode of chest pain, sweating, nausea, vomiting and near syncope. Acute coronary syndrome ruled out EKG: No signs of ischemia Troponins: Negative Cardiology consulted, no further changes at this time Orthostatic hypotension Gentle IV fluids Hold Flomax today Orthostatic vital signs improved Lightheadedness resolved 2. Nausea, vomiting,has chromic diarrhea, could be gastroenteritis. -Denies nausea vomiting or diarrhea today 3. Lactic acidosis, etiology unclear. Level improved from 3.5-2.4 4. Leukocytosis. White count 19,000, could be from prednisone which he is taking for the last 10 days, but patient has a history of bacteremia with Streptococcus bovis in the past and treated with Rocephin for 1 month in May, so Emergency Room has given 2 grams of IV Rocephin. W -Blood cultures: Negative for 24 hours, will continue to follow-up Remains afebrile 5. History of diabetes. - cut back on the insulin Lantus to [address] him on insulin sliding scale. Hold his metformin and glipizide. 6. History of chronic obstructive pulmonary disease. Stable, continue home inhalers and nebulizers p.r.n. 7. Nocturnal hypoxemia. We will continue oxygen at nighttime. 8. Depression. Continue Cymbalta. 9. Blood pressure/hypertension. Continue his lisinopril, Cardizem. 10. History of paroxysmal atrial fibrillation, on Cardizem, not on anticoagulation. On aspirin.Consulting Cardiology. 11. History of benign prostatic hypertrophy. Continue his Flomax. 12. Gastroesophageal reflux disease. Continue proton-pump inhibitor. 13. Deep vein thrombosis prophylaxis, sequential compression devices for now. 14. Disposition: Observation in the medical telemetry floor. Expect to discharge home and follow with family doctor. Level 1 full code. Subjective Follow-up for chest pain, leukocytosis Seen resting in bed, comfortable, not in distress No recurrence of chest pain States lightheadedness is improving denies fevers or chills, nausea/vomiting/diarrhea Denies other symptoms Review of Systems Review of Systems: All systems reviewed & are unremarkable except as noted in HPI & below Physical Exam Physical Exam: General- oriented x 3, not in distress, speaks in sentences with no effort or accessory muscle use Eyes- anicteric Neck- no JVD Lungs- clear BS, no wheezing or crackles bilaterally Heart- normal rate, regular rhythm; no murmurs Abdomen- normal bowel sounds, nondistended, soft, nontender Extremities- no pretibial edema, no calf tenderness Neuro- alert, oriented x 3; no gross focal neurologic deficits Skin- warm & dry Results & Data Vital Signs (Past 12 Hours) Vital Signs Temp Pulse Pulse Resp BP Pulse Ox 09/20/18 15:24 36.8 C 74 18 116/71 92 09/20/18 13:08 36.8 C 09/20/18 11:42 36.5 C 60 18 108/69 99 09/20/18 08:00 90 09/20/18 07:38 36.8 C 62 18 109/74 96 Laboratory Results Laboratory Results - last 24 hr 09/19/18 09/20/18 09/20/18 20:29 07:26 08:44 WBC 12.87 H RBC 4.73 Hgb 13.6 L Hct 42.7 MCV 90.3 MCH 28.8 MCHC 31.9 L RDW Std Deviation 53.0 H RDW Coeff of Leti 16.0 H Plt Count 271 MPV 11.7 H Immature Gran % (Auto) 0.7 Neut % (Auto) 57.5 Lymph % (Auto) 33.0 [place] % (Auto) 7.1 Eos % (Auto) 1.2 Baso % (Auto) 0.5 Immature Gran # (Auto) 0.09 H Neut # (Auto) 7.39 H Lymph # (Auto) 4.25 H [place] # (Auto) 0.92 H Eos # (Auto) 0.16 Baso # (Auto) 0.06 Sodium Potassium Chloride Carbon Dioxide Anion Gap BUN Creatinine Est Cr Clr Drug Dosing Est GFR ( Amer) Est GFR (Non-Af Amer) BUN/Creatinine Ratio Glucose POC Glucose 171 H 134 H Calcium 09/20/18 09/20/18 09/20/18 08:44 11:21 16:27 WBC RBC Hgb Hct MCV MCH MCHC RDW Std Deviation RDW Coeff of Leti Plt Count MPV Immature Gran % (Auto) Neut % (Auto) Lymph % (Auto) [place] % (Auto) Eos % (Auto) Baso % (Auto) Immature Gran # (Auto) Neut # (Auto) Lymph # (Auto) [place] # (Auto) Eos # (Auto) Baso # (Auto) Sodium 138 Potassium 4.2 Chloride 105 Carbon Dioxide 28 Anion Gap 5.0 BUN 14 Creatinine 1.01 Est Cr Clr Drug Dosing 105.1 Est GFR ( Amer) 93.9 Est GFR (Non-Af Amer) 81.0 BUN/Creatinine Ratio 13.5 Glucose 193 H POC Glucose 107 H 137 H Calcium 8.6
[2018-09-20] MEDS: FLUTICASONE/SALMETEROL 250/50 (ADVAIR) 14 PUFF/1 INHALER INH SCH (20:30)
[2018-09-20] MEDS: LORATADINE 10 MG TAB PO SCH (20:31)
[2018-09-20] MEDS: ROFLUMILAST 500 MCG TAB PO SCH (20:32)
[2018-09-20] MEDS: FLUTICASONE PROPIONATE NA SPR 16 GM BTL SCH (20:33)
[2018-09-20] MEDS: ATORVASTATIN 40 MG TAB PO SCH (20:33)
[2018-09-20] MEDS: MONTELUKAST SODIUM 10 MG TABLET PO SCH (20:34)
[2018-09-21] MEDS: OXYCODONE HCL IR 5 MG TAB (IMMEDIATE RELEASE) PO PRN ×2 (00:25→08:24)
[2018-09-21] MEDS: BuPROPion SR 150 MG TABCR PO SCH (08:26)
[2018-09-21] MEDS: GABAPENTIN 800 MG TAB PO SCH ×2 (08:26→13:02)
[2018-09-21] MEDS: dilTIAZem HCL 240 MG CAPCR PO SCH (08:26)
[2018-09-21] MEDS: DULOXETINE HCL 30 MG CAP PO SCH (08:26)
[2018-09-21] MEDS: ASPIRIN 81 MG ECTAB PO SCH (08:26)
[2018-09-21] MEDS: PANTOprazole 40 MG TAB PO SCH (08:26)
[2018-09-21] MEDS: FLUTICASONE/SALMETEROL 250/50 (ADVAIR) 14 PUFF/1 INHALER INH SCH (08:26)
[2018-09-21] MEDS: INSULIN ASPART 100 UNITS/ML 3 ML PEN SC SCH ×2 (08:27→12:02)
[2018-09-21] MEDS: INSULIN GLARGINE SOLOSTAR 100 UNITS/ML 3 ML PEN SC SCH (08:29)
[2018-09-21] MEDS ORDERED: TIOTROPIUM BROMIDE 5 PUFF/90 MCG INH INH SCH (09:00)
--- NOTE | 2018-09-21 15:54 | Hospitalist Progress Note ---
Date of Service September 21, 2018 Assessment & Plan (1) Atypical chest pain: ASSESSMENT AND PLAN: This is a 57-year-old male who presents with chest pain, palpitation, sweating, nausea, vomiting, currently resolved. 1. Episode of chest pain, sweating, nausea, vomiting and near syncope. Acute coronary syndrome ruled out EKG: No signs of ischemia Troponins: Negative Cardiology service consulted Recommend outpatient nuclear stress test Orthostatic hypotension Gentle IV fluids Hold Flomax Orthostatic vital signs improved Lightheadedness resolved Reevaluate need for Flomax as an outpatient 2. Nausea, vomiting,has chromic diarrhea -Resolved 3. Lactic acidosis, etiology unclear Level improved from 3.5-2.4 4. Leukocytosis. White count 19,000, could be from prednisone which he is taking for the last 10 days, but patient has a history of bacteremia with Streptococcus bovis in the past and treated with Rocephin for 1 month in May, so Emergency Room has given 2 grams of IV Rocephin -Blood cultures: Negative for 48 hours Leukocytosis improved to 12,000 Remained afebrile 5. History of diabetes. -Resume usual regimen as an outpatient Monitor as outpatient 6. History of chronic obstructive pulmonary disease. Stable, continue home inhalers and nebulizers p.r.n. 7. Nocturnal hypoxemia. Continue oxygen at nighttime. 8. Depression. Continue Cymbalta. 9. Blood pressure/hypertension. Continue his lisinopril, Cardizem. 10. History of paroxysmal atrial fibrillation, on Cardizem, not on anticoagulation. On aspirin. 11. History of benign prostatic hypertrophy. Continue his Flomax. 12. Gastroesophageal reflux disease. Continue proton-pump inhibitor. 13. Deep vein thrombosis prophylaxis, sequential compression devices for now. 14. Disposition: Discharge to home Follow-up with primary care physician as outlined in the discharge instructions Follow-up with cardiology service in 1 to 2 weeks for nuclear stress testing Subjective Follow-up for chest pain, leukocytosis Seen sitting up in bed, not in distress, in good spirits No recurrence of chest pain No lightheadedness, ambulating with no problems No fevers or chills Denies any symptoms States he is ready would like to be discharged today Review of Systems Review of Systems: All systems reviewed & are unremarkable except as noted in HPI & below Physical Exam Physical Exam: General- oriented x 3, not in distress, speaks in sentences with no effort or accessory muscle use Eyes- anicteric Neck- no JVD Lungs- clear breath sounds, no crackles no wheezing bilaterally Heart- normal rate, regular rhythm; no murmurs Abdomen- normal bowel sounds, nondistended, soft, nontender Extremities- no pretibial edema, no calf tenderness Neuro- alert, oriented x 3; no gross focal neurologic deficits Skin- warm & dry Results & Data Vital Signs (Past 12 Hours) Vital Signs Temp Pulse Pulse Resp BP Pulse Ox 09/21/18 11:39 36.9 C 75 18 144/75 H 95 09/21/18 07:31 83 09/21/18 07:02 36.5 C 80 18 123/74 93 09/21/18 03:38 36.8 C 76 18 127/68 95 09/21/18 00:30 77 Laboratory Results Laboratory Results - last 24 hr 09/20/18 09/20/18 09/21/18 16:27 20:52 07:17 POC Glucose 137 H 161 H 136 H 09/21/18 11:18 POC Glucose 146 H
--- NOTE | 2018-09-21 15:56 | Discharge Summary ---
Date of Service September 21, 2018 Admission HPI Per Admitting Provider CHIEF COMPLAINT: Chest pain and palpitations. HISTORY OF PRESENT ILLNESS: This is a 57-year-old male with past medical history significant for diabetes, diabetic polyneuropathy, hyperlipidemia, hypotestosteronemia, nocturnal hypoxemia, uses 2 liters while sleeping, diastolic dysfunction, hypertension, vasodepressor syncope, fatty liver disease, severe obesity, GERD, vitamin D deficiency, BPH, chronic pain, depression with anxiety, chews tobacco, who was admitted in [facility] bacteremia with Strep bovis, treated with 4 weeks of IV Rocephin 2 g daily. At that time, echo was fine. He is also status post EGD and colonoscopy with biopsy, which were unremarkable, presents with chest pain. The patient today in the evening had chest pain associated with palpitations, nausea, vomiting at home, he was almost about to pass out, was diaphoretic. EMS was called. In the EMS, 2 doses of nitroglycerin and aspirin were given, which resolved his pain. Currently resting comfortably and hemodynamically stable. He says he is taking prednisone and also antibiotic for the last 10 days for bronchitis which symptoms improved. In the ER because of history of Strep bovis infection, and labs showing leukocytosis and elevated lactic acid he was given 2 g of IV Rocephin. Currently resting comfortably and hemodynamically stable. He has some headache. Denies any blurred vision, no earache, no runny nose, no sore throat, no difficulty swallowing. Has some mild dry cough. Currently no chest pain, no shortness of breath. Currently no nausea, no abdominal pain. He has chronic diarrhea and moved 3 times daily, loose stools, no blood in the stools. Normal bladder movements. No hematuria, has some burning micturition. No swelling in the legs, no rash. Ambulates without any help. Lives with his . Appetite is okay. ALLERGIES: ATENOLOL, FENTANYL, RODRÍGUEZ 2 INHIBITORS, FLUOXETINE, MORPHINE SULFATE. PAST MEDICAL HISTORY: As mentioned above. PAST SURGICAL HISTORY: Colonoscopy, EGDs. Admission Exam Per Admitting Provider GENERAL: The patient is obese, not in acute distress. VITAL SIGNS: Temperature 36.8, pulse 107, respiratory rate 20, blood pressure 134/54, oxygen 94% on room air. HEENT: No pallor, no icterus. Pupils equal, round, reactive to light. NECK: No JVD, no neck masses, no carotid bruits. CARDIOVASCULAR: S1, S2, regular rate and rhythm, no murmur, no gallop. RESPIRATORY SYSTEM: Normal AP diameter. No accessory muscle use. No wheezing, no crackles. ABDOMEN: Soft, bowel sounds present, nontender. No distention. CENTRAL NERVOUS SYSTEM: Cranial nerves II-XII grossly intact, nonfocal. EXTREMITIES: No edema, no erythema. Principal Diagnosis Atypical chest pain Discharge Exam General- oriented x 3, not in distress, speaks in sentences with no effort or accessory muscle use Eyes- anicteric Neck- no JVD Lungs- clear breath sounds, no crackles no wheezing bilaterally Heart- normal rate, regular rhythm; no murmurs Abdomen- normal bowel sounds, nondistended, soft, nontender Extremities- no pretibial edema, no calf tenderness Neuro- alert, oriented x 3; no gross focal neurologic deficits Skin- warm & dry Discharge Data Allergies Allergy/AdvReac Type Severity Reaction Status Date / Time atenolol Allergy Severe DEPRESSION/ Verified 08/29/18 07:56 SUICIDAL amoxicillin Allergy Intermediate "SEVERE" Verified 08/29/18 07:56 DIARRHEA celecoxib Allergy Intermediate FLUID Verified 08/29/18 07:56 RETENTION-WT GAIN clavulanic acid Allergy Intermediate "SEVERE" Verified 08/29/18 07:56 DIARRHEA adhesive tape Allergy Mild Rash Verified 08/29/18 07:56 fentanyl Allergy Mild RASH Verified 08/29/18 07:56 fluoxetine AdvReac Severe HALLUCINATI Verified 08/29/18 07:56 ONS Consultations 09/19/18 08:00 Consult Cardiology Routine Ordered Studies 09/18/18 21:28 CT angio chest PE protocol Stat FINDINGS: There is a normal caliber thoracic aorta with no evidence for dissection. There is no evidence for pulmonary embolus. No pleural effusions. No pneumothorax. The liver and spleen are unremarkable. No mediastinal or hilar lymphadenopathy. The central airways are patent. The lungs are clear. IMPRESSION: No evidence for pulmonary embolus. The lungs are clear. Minimal dependent basilar atelectasis. Hospital Course (1) Atypical chest pain: ASSESSMENT AND PLAN: This is a 57-year-old male who presents with chest pain, palpitation, sweating, nausea, vomiting, currently resolved. Episode of chest pain, sweating, nausea, vomiting and near syncope. Acute coronary syndrome ruled out EKG: No signs of ischemia Troponins: Negative Cardiology service consulted Recommend outpatient nuclear stress test Orthostatic hypotension Gentle IV fluids given Hold Flomax Orthostatic vital signs improved Lightheadedness resolved Reevaluate need for Flomax as an outpatient Nausea, vomiting,has chronic diarrhea -Resolved Lactic acidosis, etiology unclear Level improved from 3.5-2.4 Leukocytosis. No source of infection found White count 19,000, could be from prednisone which he is taking for the last 10 days, but patient has a history of bacteremia with Streptococcus bovis in the past and treated with Rocephin for 1 month in May, so Emergency Room has given 2 grams of IV Rocephin -Blood cultures: Negative for 48 hours Leukocytosis improved to 12,000 Remained afebrile History of diabetes -Resume usual regimen as an outpatient Monitor as outpatient History of chronic obstructive pulmonary disease. Stable, continue home inh trever and nebulizers p.r.n. Nocturnal hypoxemia. Continue oxygen at nighttime. Depression. Continue Cymbalta. Hypertension. Continue his lisinopril, Cardizem. History of paroxysmal atrial fibrillation, on Cardizem, not on anticoagulation. On aspirin. History of benign prostatic hypertrophy. Continue his Flomax. Gastroesophageal reflux disease. Continue proton-pump inhibitor. Disposition: Discharge to home Follow-up with primary care physician as outlined in the discharge instructions Follow-up with cardiology service in 1 to 2 weeks for nuclear stress testing Total Time Total Time Spent Total Time Spent (In Minutes): 40 minutes Discharge Plan Discharge Items Patient Disposition: Home - Self-Care Reason For Visit: CHEST PAIN Discharge Diagnosis: Chest pain Discharge Goals: Diagnostic testing and Therapeutic intervention Activity: As commented below Activity Comment: Resume activity gradually as tolerated Lifting: Wait until after follow-up appointment Exercise/Sports: Wait until after follow-up appointment Driving/Machine Use Comment: No driving until reevaluated by primary care physician Non-emergency contact: Primary Care Provider Call non-emergency contact if: you have any medication questions, your symptoms worsen, your pain is not controlled, your pain is worsening and you have a fever Follow-up/Referrals: Yann Fraga MD [Primary Care Provider] - 09/27/18 1:25 pm Diet: Carb Consistent or DM2 and Heart Healthy Addtl Provider Instructions: Always stay well-hydrated. Call primary care physician or return to the ER immediately if with recurrence or worsening symptoms, Fevers or chills, weakness, nausea vomiting. Follow-up with Dr. Fraga as noted above. Follow-up up with cardiology clinic as scheduled. Prescriptions: Continued albuterol sulfate 2.5 mg /3 mL (0.083 %) Solution For Nebulization 2.5 mg INHALATION QID PRN (Reason: Shortness Of Breath Or Wheezing) RF: 0 diltiazem HCl 240 mg Capsule,Extended Release 24 Hr 240 mg PO QAM RF: 0 promethazine 25 mg Tablet 25 mg PO Q6H PRN (Reason: Nausea And Vomiting) RF: 0 ergocalciferol (vitamin D2) 50,000 unit Capsule 50,000 unit PO WK RF: 0 roflumilast 250 mcg Tablet 250 mcg PO HS RF: 0 bupropion HCl [Wellbutrin SR] 150 mg Tablet Sustained-Release 12 Hr 150 mg PO BID RF: 0 atorvastatin 80 mg Tablet 80 mg PO HS RF: 0 loperamide 2 mg Capsule 2 mg PO BID PRN (Reason: Diarrhea) RF: 0 aspirin [Aspirin Low Dose] 81 mg Tablet,Delayed Release (Dr/Ec) 81 mg PO QAM RF: 0 metformin 1,000 mg Tablet 1,000 mg PO BIDM RF: 0 lisinopril 10 mg Tablet 10 mg PO QAM RF: 0 montelukast [Singulair] 10 mg Tablet 10 mg PO PM RF: 0 lorazepam 1 mg Tablet 1 mg PO TID PRN (Reason: Anxiety) RF: 0 fluticasone propionate [Flonase Allergy Relief] 50 mcg/actuation Norvell,Suspension 2 spray INTRANASAL HS RF: 0 loratadine 10 mg Tablet 10 mg PO HS RF: 0 glipizide 5 mg Tablet 5 mg PO QAM RF: 0 ipratropium bromide 0.02 % Solution 2.5 ml INHALATION Q6H PRN (Reason: Shortness Of Breath) RF: 0 Apidra SoloStar U-100 Insulin 100 unit/mL Insulin Pen 15 units subcut ACHS RF: 0 albuterol sulfate [Ventolin HFA] 90 mcg/actuation Hfa Aerosol Inhaler 2 puff INHALATION Q6H PRN (Reason: Shortness Of Breath Or Wheezing) RF: 0 omeprazole 40 mg Capsule,Delayed Release(Dr/Ec) 40 mg PO QAM RF: 0 gabapentin 800 mg Tablet 800 mg PO TID RF: 0 oxycodone [Roxicodone] 15 mg Tablet 15 mg PO Q8H PRN (Reason: Pain, Severe) RF: 0 Basaglar KwikPen U-100 Insulin 100 unit/mL (3 mL) Insulin Pen 20 unit SUBCUT BID RF: 0 prednisone 10 mg Tablet See Rx Instructions .ROUTE .COMPLEX PRN (Reason: Rescue Kit) RF: 0 doxycycline monohydrate 100 mg Capsule 100 mg PO BID PRN (Reason: Rescue Kit) RF: 0 duloxetine [Cymbalta] 30 mg Capsule,Delayed Release(Dr/Ec) 30 mg PO DAILY RF: 0 Trelegy Ellipta 100-62.5-25 mcg Blister With Device 1 inh INHALATION DAILY RF: 0 Discontinued tamsulosin [Flomax] 0.4 mg Capsule 0.4 mg PO QAM RF: 0 Stand-Alone Forms: [facility] Discharge Orders: Discharge Order (Routine); Ordered 09/21/18 Ordered By: Lior Powell Admission Data Admit Date/Time: 09/18/18 23:11 Attending Provider: Lior Powell Admit Provider: Hunter Arrington Primary Care Provider: Yann Fraga Other Providers: Jose Eduardo Koehler ; Sumeet Harrington ; Chase Flores ; David Greco ; Aris Carey ; Alexander Swan ; Sylwia Sainz ; Sheri Zavala ; Erin Wilson Service: Telemetry Other Interventions: Discharge Summary Assessment (RN) Last Done: 09/21/18 12:36 DC Date/Time DO NOT enter until pt leaves facility: 09/21/18 13:22
== END 2018-09-21 13:22 | disposition home or self-care (01) ==
LOC: 2S 20:32 → ED 20:32 → SUATTDRO 23:11 → 2S 23:40

== ENCOUNTER 2020-08-18 10:37 | Observation (INO) ==
[2020-08-18] MEDS ORDERED: DIPHTHERIA/TETANUS/PERTUSSIS 0.5 ML SYR/VIAL IM ONE (11:39)
[2020-08-18] MEDS ORDERED: LORazepam 1 MG/2 ML VIAL IV STA (11:42)
[2020-08-18 11:48] LABS: Basophils # (auto) 0.02 K/uL (0-0.2); Basophils % (auto) 0.1 %; Eosinophils # (auto) 0.03 K/uL (0-0.5); Eosinophils % (auto) 0.2 %; Hematocrit (blood only) 46.4 % (42-52); Immature Granulocytes # (auto) 0.07 K/uL (0.00-0.02); Immature Granulocytes % (auto) 0.4 %; Lymphocytes # (auto) 1.86 K/uL (1.2-3.4); Lymphocytes % (auto) 10.9 %; Mean Corpuscular Hgb Conc 32.3 g/dL (32-36); Mean Corpuscular Volume 89.6 fL (80-100); Mean Platelet Volume 12.6 fL (7.4-10.4); Monocytes # (auto) 1.39 K/uL (0.11-0.59); Monocytes % (auto) 8.2 %; Neutrophils # (auto) 13.68 K/uL (1.4-6.5); Neutrophils % (auto) 80.2 %; Platelet Count 269 K/uL (130-400); RDW Coefficient of Variation 14.1 % (11.5-14.5); RDW Standard Deviation 46.5 fL (36.4-46.3); Red Blood Count 5.18 M/uL (4.7-6.1); White Blood Count 17.05 K/uL (4.8-10.8)
--- NOTE | 2020-08-18 11:51 | Emergency Department Note ---
History of Present Illness General Chief complaint: Cardiac Assessment Stated complaint: CHEST PAIN, SYNCOPE, FALL, KNEE PAIN Time Seen by Provider: 08/18/20 11:20 History of Present Illness Provider complaint: Chest pain panic attack Onset (ago): hour(s) 2 Location: chest Radiation: non-radiation Maximum Pain Intensity: 0 Current Pain Intensity: 0 Quality: + aching Relieved By: + none Exacerbated By: + none Associated symptoms: + chest pain and + shortness of breath; no confusion, no cough, no fever/chills, no headaches and no nausea/vomiting 59-year-old male presents emergency department for chest pain. Patient states earlier today he was having chest pain difficulty breathing because he thought he was having a panic attack. Patient states he took his Ativan and it did not help. Patient states he called his doctor to see them and they could not see him which exacerbated his panic attack. He states his doctor's office told him to call 911 so he did. He states 1911 got there they were trying to walk him to the stretcher and then he fell and passed out. Patient and deny that the patient hit his head. Patient is reporting knee pain from falling. Home Medications Medication Instructions Recorded Confirmed Type albuterol sulfate [Ventolin HFA] 2 puff INHALATION Q6H PRN 03/15/18 08/18/20 History aspirin [Aspirin Low Dose] 81 mg PO QAM 03/15/18 08/18/20 History atorvastatin 80 mg PO HS 03/15/18 08/18/20 History bupropion HCl [Wellbutrin SR] 150 mg PO BID 03/15/18 08/18/20 History fluticasone propionate [Flonase 2 spray INTRANASAL BID 03/15/18 08/18/20 History Allergy Relief] glipizide 5 mg PO QAM 03/15/18 08/18/20 History lisinopril 10 mg PO QAM 03/15/18 08/18/20 History metformin 1,000 mg PO BIDM 03/15/18 08/18/20 History montelukast [Singulair] 10 mg PO PM 03/15/18 08/18/20 History diltiazem HCl 240 mg PO QAM 06/12/18 08/18/20 History cholecalciferol (vitamin D3) 1,250 50,000 unit PO [place] cap 10/02/18 08/18/20 History mcg (50,000 unit) capsule pregabalin 50 mg capsule 50 mg PO TID cap 10/02/18 08/18/20 History tamsulosin 0.4 mg PO DAILY 12/10/18 08/18/20 History gabapentin 800 mg tablet 800 mg PO QID tab 06/26/19 08/18/20 History potassium chloride 20 mEq 20 meq PO DAILY #30 tab 06/27/19 08/18/20 Rx tablet,extended release azelastine 137 mcg (0.1 %) nasal 1 sprays INTNAS BID #30 ml 07/25/19 08/18/20 Rx spray aerosol epinephrine 0.3 mg/0.3 mL 0.3 mg IM Q20M PRN #1 ea 08/21/19 08/18/20 Rx injection, auto-injector mometasone-formoterol HFA 200 2 puff INHALATION BID #13 g 10/29/19 08/18/20 Rx mcg-5 mcg/actuation aerosol inhaler sodium chloride 0.65 % nasal spray 1 spray INTNAS BID PRN #30 ml 11/27/19 08/18/20 Rx aerosol famotidine 20 mg tablet 20 mg PO DAILY 42 Days #42 tab 04/27/20 08/18/20 Rx ipratropium bromide 2 spray INTRANASAL DAILY PRN 05/02/20 08/18/20 History lorazepam 0.5 mg PO BID PRN 05/02/20 08/18/20 History nystatin 2 ml PO QID PRN 05/02/20 08/18/20 History oxycodone 10 mg PO Q6H PRN 05/02/20 08/18/20 History sodium chloride 4 ml INHALATION BID PRN 05/02/20 08/18/20 History immune glob,gamma (IgG) 10 60 g IV .COMPLEX #400 ml 05/07/20 08/18/20 Rx %-gly-IgA over 50 mcg/mL injection solution cyanocobalamin (vitamin B-12) 1,000 mcg SUBLINGUAL DAILY 08/06/20 08/18/20 History [Vitamin B-12] dulaglutide [Trulicity] 3 mg SUBCUT WK 08/06/20 08/18/20 History insulin aspart U-100 [Novolog 30 - 35 unit SUBCUT TIDM 08/06/20 08/18/20 History Flexpen U-100 Insulin] insulin glargine [Lantus Solostar 60 unit SUBCUT BID 08/06/20 08/18/20 History U-100 Insulin] bumetanide 1 mg PO TID 08/18/20 08/18/20 History carbamazepine 200 mg PO BID 08/18/20 08/18/20 History escitalopram oxalate 10 mg PO QAM 08/18/20 08/18/20 History loperamide 2 mg PO BID 08/18/20 08/18/20 History metoprolol succinate 37.5 mg PO DAILY 08/18/20 08/18/20 History omeprazole 40 mg PO DAILY 08/18/20 08/18/20 History rosuvastatin 40 mg PO DAILY 08/18/20 08/18/20 History Allergies Allergy/AdvReac Type Severity Reaction Status Date / Time atenolol Allergy Severe DEPRESSION/ Verified 08/18/20 14:15 SUICIDAL amoxicillin Allergy Intermediate "SEVERE" Verified 08/18/20 14:15 DIARRHEA celecoxib Allergy Intermediate FLUID Verified 08/18/20 14:15 RETENTION-WT GAIN clavulanic acid Allergy Intermediate "SEVERE" Verified 08/18/20 14:15 DIARRHEA adhesive tape Allergy Mild Rash Verified 08/18/20 14:15 fluoxetine AdvReac Severe HALLUCINATI Verified 08/18/20 14:15 ONS Past Med/Surg History Medical History (Updated 08/18/20 @ 15:39 by Long Reza) Anxiety Benign hypertension Benign prostatic hyperplasia with urinary obstruction BPH (benign prostatic hyperplasia) Cervical disc disorder Chronic back pain Chronic neck pain Chronic pain Chronic pain syndrome COPD (chronic obstructive pulmonary disease) Costochondritis Depression Diabetes mellitus, type II IDDM Diabetic neuropathy Dizziness Dyslipidemia Elevated diaphragm GERD (gastroesophageal reflux disease) Grade II diastolic dysfunction Hearing deficit RIGHT EAR DEAF Heartburn HLD (hyperlipidemia) HTN (hypertension) Kidney stones Mood disorder Narcotic dependence Neck pain Normal colonoscopy On anticoagulant therapy ASA 81MG Osteoarthritis Physical deconditioning Pneumonia MAY 2018 Sleep apnea 2LPM VIA N/C Steatosis of liver (Unknown) Tingling Tobacco use Ureteral stone Vasodepressor syncope Surgical History History of colonoscopy History of esophagogastroduodenoscopy (EGD) History of lithotripsy S/P PICC central line placement WITH REMOVAL (JUNE 2018) Family History Grandmother Family history of diabetes mellitus Cancer Father Family history of high blood pressure FHx: heart disease Hypertension Sister Asthma Allergies Hypertension Mother Hearing loss Hypertension Uncle Hypertension Other Heart disease No family history of adverse response to anesthesia No family history of bleeding disorder Social History Smoking Status: Never smoker Tobacco Type: Smokeless Tobacco (Dip or Chew) Second Hand Exposure: No; Hx Alcohol Use: No Hx Substance Use: No Preferred Language: Spanish Communication Ability: Effective Visual Impairment: Limited Undercollar Maker Required: No Beliefs That Will Affect Care: None marital status: Current Living Situation: Spouse current occupational status: unemployed and disabled Feels Safe at Home: Yes Assistive Devices: Oxygen - at Night Review of Systems A total of 10 systems reviewed and were otherwise negative Physical Exam Vital Signs Vital Signs - 24 hr 08/18/20 10:42 08/18/20 10:44 08/18/20 10:45 Temperature 36.6 C Temperature Source Oral Pulse Rate 94 H 95 H 94 H Pulse Rate from SpO2 Sensor 93 H 96 H Pulse Rhythm Respiratory Rate 25 H 24 19 Blood Pressure 147/94 H 147/94 H Blood Pressure Mean 111 111 Pulse Oximetry 97 97 96 Oxygen Delivery Method Room Air Sepsis Recent Fever Within 48 Hours No Sepsis New/Unexplained Change in Mental Status No Sepsis Action Taken by Nursing No Action Required 08/18/20 10:50 08/18/20 11:00 08/18/20 11:10 Temperature Temperature Source Pulse Rate 96 H 97 H 103 H Pulse Rate from SpO2 Sensor 97 H 97 H 103 H Pulse Rhythm Respiratory Rate 20 22 17 Blood Pressure 157/98 H Blood Pressure Mean 117 Pulse Oximetry 97 97 96 Oxygen Delivery Method Sepsis Recent Fever Within 48 Hours Sepsis New/Unexplained Change in Mental Status Sepsis Action Taken by Nursing 08/18/20 11:20 08/18/20 11:30 08/18/20 11:40 Temperature Temperature Source Pulse Rate 99 H 97 H 105 H Pulse Rate from SpO2 Sensor 99 H 99 H 103 H Pulse Rhythm Respiratory Rate 29 H 14 20 Blood Pressure 123/92 Blood Pressure Mean 102 Pulse Oximetry 95 97 91 Oxygen Delivery Method Sepsis Recent Fever Within 48 Hours Sepsis New/Unexplained Change in Mental Status Sepsis Action Taken by Nursing 08/18/20 11:42 08/18/20 11:50 08/18/20 12:00 Temperature Temperature Source Pulse Rate 65 97 H 101 H Pulse Rate from SpO2 Sensor 97 H 101 H Pulse Rhythm Regular Respiratory Rate 12 12 18 Blood Pressure 149/81 H Blood Pressure Mean 103 Pulse Oximetry 96 97 93 Oxygen Delivery Method Room Air Sepsis Recent Fever Within 48 Hours Sepsis New/Unexplained Change in Mental Status Sepsis Action Taken by Nursing 08/18/20 12:10 08/18/20 12:20 08/18/20 12:30 Temperature Temperature Source Pulse Rate 94 H 94 H 99 H Pulse Rate from SpO2 Sensor 95 H 92 H 99 H Pulse Rhythm Respiratory Rate 17 22 29 H Blood Pressure 143/102 H Blood Pressure Mean 115 Pulse Oximetry 95 95 95 Oxygen Delivery Method Sepsis Recent Fever Within 48 Hours Sepsis New/Unexplained Change in Mental Status Sepsis Action Taken by Nursing 08/18/20 12:40 08/18/20 12:50 08/18/20 13:00 Temperature Temperature Source Pulse Rate 93 H 94 H 105 H Pulse Rate from SpO2 Sensor 95 H 92 H 106 H Pulse Rhythm Respiratory Rate 19 18 15 Blood Pressure 135/94 Blood Pressure Mean 107 Pulse Oximetry 93 93 98 Oxygen Delivery Method Sepsis Recent Fever Within 48 Hours Sepsis New/Unexplained Change in Mental Status Sepsis Action Taken by Nursing 08/18/20 13:10 Temperature Temperature Source Pulse Rate Pulse Rate from SpO2 Sensor 106 H Pulse Rhythm Respiratory Rate Blood Pressure Blood Pressure Mean Pulse Oximetry 94 Oxygen Delivery Method Sepsis Recent Fever Within 48 Hours Sepsis New/Unexplained Change in Mental Status Sepsis Action Taken by Nursing Physical Exam GENERAL: He is oriented to person, place, and time. He appears well-developed and well-nourished. He does not appear distressed. HENT: Exam performed. - Head: Normocephalic and atraumatic. - Right Ear: External ear normal. No mastoid tenderness. - Left Ear: External ear normal. No mastoid tenderness. - Mouth/Throat: The oropharynx is clear and moist. No trismus in the jaw. No dental abscesses or uvula swelling. No oropharyngeal exudate or tonsillar abscesses. EYES: Conjunctivae and EOM are normal. Pupils are equal, round, and reactive to light. Right eye exhibits no discharge. Left eye exhibits no discharge. No scleral icterus. NECK: Normal range of motion. Neck supple. No JVD present. No spinous process tenderness present. No carotid bruit present. No rigidity. No tracheal deviation and normal range of motion present. No Brudzinski's sign and no Kernig's sign noted. CV: Normal rate, regular rhythm, normal heart sounds and intact distal pulses. There is no peripheral edema. Palpable radial pulses bue. PULM/CHEST: Effort normal and breath sounds normal. No respiratory distress. No stridor. He has no wheezes. He has no rales. - Chest Wall: He exhibits no tenderness. ABD: The abdomen is soft and obese. Bowel sounds are normal. He has no dist ension. No mass is present. There is no tenderness. There is no rebound, no guarding, no Olvera's sign and no tenderness at McBurney's point. Rovsig negative. MUSC/SKEL: Normal range of motion. There is no peripheral edema, tenderness or deformity. LYMPH: No cervical adenopathy. NEURO: He is alert and oriented to person, place, and time. He has normal strength. No cranial nerve deficit or sensory deficit. Coordination and gait normal. GCS eye subscore is 4. GCS verbal subscore is 5. GCS motor subscore is 6. Cerebellar tests wnl. SKIN: Abrasion over the right knee. PSYCH: Patient appears very anxious. Course Course 1120: The patient was evaluated in room C5. A complete history and physical exam was performed Cardiac monitoring: An order was placed for continuous cardiac monitoring. The monitor shows a rate of 80 with sinus rhythm EMR reviewed. Patient has a history of chronic shortness of breath, asthma, CVI D, leukocytosis, narcotic dependence, chronic back pain, and anxiety. Patient was seen in the emergency department on August 07, 2011 days ago. At that time he was being seen for difficulty breathing as well. At that time he started using a "rescue pack of prednisone and azithromycin". Patient had a negative chest x- ray and negative CT of the chest. His BNP was within normal limits. His white blood cell count was 15,000 and was thought to be due to the response of the steroids. Patient's weight today is 127.1 kg which does appear to be at the patient's baseline weight over the last 6 months. 1315: Vital signs stable. Labs show worsening leukocytosis of 17. Lactic acid elevated at 4.6. Blood cultures will be drawn. It is thought that this is too long for the patient to have a reactive leukocytosis secondary to steroid usage. Will also order CT of the abdomen. 1415: Vital signs stable. CT of the abdomen shows possible enteritis versus ileus. Urinalysis negative. Patient asking for pain medication. We will give the patient nonnarcotic pain medication as he has a history of opioid dependence. We will hold off on antibiotics on this patient as it could be that his leukocytosis and lactic acidemia could be due to a viral GI infection. EMR reviewed and the patient does have a chronically elevated lactic acid and he is on Metformin which could be reason for that versus infection. Blood cultures are still pending. Stool culture ordered. [facility] Longoria with Dr. Dougherty will evaluate the patient for admission. Administered Medications Discontinued Medications Diphtheria/Pertussis/Tetanus Vacc (Diphtheria/Tetanus/Pertussis 0.5 Ml Syr/Vial) 0.5 ml IM .ONCE ONE Stop: 08/18/20 11:40 Last Admin: 08/18/20 13:09 Dose: Not Given Documented by: [id number] Lorazepam (Ativan) 1 mg in 2 mls @ 2 mls/min IV NOW STA Stop: 08/18/20 11:43 Last Admin: 08/18/20 11:54 Dose: 2 mls/min Documented by: [id number] Sodium Chloride (Nss 1000ml) 1,000 mls @ 999 mls/hr IV .Q1H1M ONE Stop: 08/18/20 14:03 Last Admin: 08/18/20 13:13 Dose: 999 mls/hr Documented by: [id number] Ioversol (Optiray 320 100ml) 94 ml IV ONCE ONE Stop: 08/18/20 13:37 Last Admin: 08/18/20 13:36 Dose: 94 ml Documented by: [id number] Ketorolac Tromethamine (Ketorolac Tromethamine 15 Mg/Ml Vial) 15 mg IV NOW STA Stop: 08/18/20 13:50 Last Admin: 08/18/20 14:13 Dose: 15 mg Documented by: [id number] Medical Decision Making Laboratory Data Result diagrams: 08/18/20 11:18 08/18/20 11:18 Lab Results 08/18/20 08/18/20 08/18/20 Range/Units 11:18 11:18 11:18 WBC 17.05 H (4.8-10.8) K/uL RBC 5.18 (4.7-6.1) M/uL Hgb 15.0 (14.0-18.0) g/dL Hct 46.4 (42-52) % MCV 89.6 (80-100) fL MCH 29.0 (25-34) pg MCHC 32.3 (32-36) g/dL RDW Std Deviation 46.5 H (36.4-46.3) fL RDW Coeff of Leti 14.1 (11.5-14.5) % Plt Count 269 (130-400) K/uL MPV 12.6 H (7.4-10.4) fL Immature Gran % (Auto) 0.4 % Neut % (Auto) 80.2 % Lymph % (Auto) 10.9 % [place] % (Auto) 8.2 % Eos % (Auto) 0.2 % Baso % (Auto) 0.1 % Neut # (Auto) 13.68 H (1.4-6.5) K/uL Lymph # (Auto) 1.86 (1.2-3.4) K/uL [place] # (Auto) 1.39 H (0.11-0.59) K/uL Eos # (Auto) 0.03 (0-0.5) K/uL Baso # (Auto) 0.02 (0-0.2) K/uL Immature Gran # (Auto) 0.07 H (0.00-0.02) K/uL APTT 22.9 (21.0-31.0) Seconds PTT Ratio 0.9 Sodium 138 (136-145) mmol/L Potassium 4.3 (3.5-5.1) mmol/L Chloride 104 (98-107) mmol/L Carbon Dioxide 25 (21-32) mmol/L Anion Gap 9.0 (3-11) BUN 22 H (7-18) mg/dl Creatinine 1.38 (0.6-1.4) mg/dl Est Cr Clr Drug Dosing 76.3 ml/min Est GFR ( Amer) 63.5 ml/min Est GFR (Non-Af Amer) 54.8 ml/min BUN/Creatinine Ratio 15.9 (10-20) Glucose 256 H (70-99) mg/dl Lactate (0.4-2.0) mmol/L Calcium 9.2 (8.5-10.1) mg/dl Troponin I < 0.015 (0-0.045) ng/ml Lipase 140 (73-393) U/L Urine Color Urine Appearance (Clear) Urine pH (4.5-7.5) Ur Specific [place] (1.000-1.030) Urine Protein (Negative) Urine Glucose (UA) (Negative) Urine Ketones (Negative) Urine Blood (Negative) Urine Nitrite (Negative) Urine Bilirubin (Negative) Urine Urobilinogen (Negative) Ur Leukocyte Esterase (Negative) Urine WBC (Auto) (0-5) /hpf Urine RBC (Auto) (0-4) /hpf U Hyaline Cast (Auto) (0-5) /lpf U Epithel Cells (Auto) (0-5) /lpf Urine Bacteria (Auto) (Negative) COVID-19 Eval Order SARS-CoV-2 (PCR) (Negative) 08/18/20 08/18/20 08/18/20 Range/Units 12:16 13:13 14:06 WBC (4.8-10.8) K/uL RBC (4.7-6.1) M/uL Hgb (14.0-18.0) g/dL Hct (42-52) % MCV (80-100) fL MCH (25-34) pg MCHC (32-36) g/dL RDW Std Deviation (36.4-46.3) fL RDW Coeff of Leti (11.5-14.5) % Plt Count (130-400) K/uL MPV (7.4-10.4) fL Immature Gran % (Auto) % Neut % (Auto) % Lymph % (Auto) % [place] % (Auto) % Eos % (Auto) % Baso % (Auto) % Neut # (Auto) (1.4-6.5) K/uL Lymph # (Auto) (1.2-3.4) K/uL [place] # (Auto) (0.11-0.59) K/uL Eos # (Auto) (0-0.5) K/uL Baso # (Auto) (0-0.2) K/uL Immature Gran # (Auto) (0.00-0.02) K/uL APTT (21.0-31.0) Seconds PTT Ratio Sodium (136-145) mmol/L Potassium (3.5-5.1) mmol/L Chloride (98-107) mmol/L Carbon Dioxide (21-32) mmol/L Anion Gap (3-11) BUN (7-18) mg/dl Creatinine (0.6-1.4) mg/dl Est Cr Clr Drug Dosing ml/min Est GFR ( Amer) ml/min Est GFR (Non-Af Amer) ml/min BUN/Creatinine Ratio (10-20) Glucose (70-99) mg/dl Lactate 4.6 H* 4.0 H* (0.4-2.0) mmol/L Calcium (8.5-10.1) mg/dl Troponin I (0-0.045) ng/ml Lipase (73-393) U/L Urine Color Yellow Urine Appearance Clear (Clear) Urine pH 6.0 (4.5-7.5) Ur Specific [place] 1.026 (1.000-1.030) Urine Protein Trace H (Negative) Urine Glucose (UA) 3+ H (Negative) Urine Ketones 1+ H (Negative) Urine Blood Negative (Negative) Urine Nitrite Negative (Negative) Urine Bilirubin Negative (Negative) Urine Urobilinogen Negative (Negative) Ur Leukocyte Esterase Negative (Negative) Urine WBC (Auto) 1-5 (0-5) /hpf Urine RBC (Auto) 0-4 (0-4) /hpf U Hyaline Cast (Auto) 1-5 (0-5) /lpf U Epithel Cells (Auto) 10-20 H (0-5) /lpf Urine Bacteria (Auto) Negative (Negative) COVID-19 Eval Order SARS-CoV-2 (PCR) (Negative) 08/18/20 08/18/20 Range/Units 14:19 14:19 WBC (4.8-10.8) K/uL RBC (4.7-6.1) M/uL Hgb (14.0-18.0) g/dL Hct (42-52) % MCV (80-100) fL MCH (25-34) pg MCHC (32-36) g/dL RDW Std Deviation (36.4-46.3) fL RDW Coeff of Leti (11.5-14.5) % Plt Count (130-400) K/uL MPV (7.4-10.4) fL Immature Gran % (Auto) % Neut % (Auto) % Lymph % (Auto) % [place] % (Auto) % Eos % (Auto) % Baso % (Auto) % Neut # (Auto) (1.4-6.5) K/uL Lymph # (Auto) (1.2-3.4) K/uL [place] # (Auto) (0.11-0.59) K/uL Eos # (Auto) (0-0.5) K/uL Baso # (Auto) (0-0.2) K/uL Immature Gran # (Auto) (0.00-0.02) K/uL APTT (21.0-31.0) Seconds PTT Ratio Sodium (136-145) mmol/L Potassium (3.5-5.1) mmol/L Chloride (98-107) mmol/L Carbon Dioxide (21-32) mmol/L Anion Gap (3-11) BUN (7-18) mg/dl Creatinine (0.6-1.4) mg/dl Est Cr Clr Drug Dosing ml/min Est GFR ( Amer) ml/min Est GFR (Non-Af Amer) ml/min BUN/Creatinine Ratio (10-20) Glucose (70-99) mg/dl Lactate (0.4-2.0) mmol/L Calcium (8.5-10.1) mg/dl Troponin I (0-0.045) ng/ml Lipase (73-393) U/L Urine Color Urine Appearance (Clear) Urine pH (4.5-7.5) Ur Specific [place] (1.000-1.030) Urine Protein (Negative) Urine Glucose (UA) (Negative) Urine Ketones (Negative) Urine Blood (Negative) Urine Nitrite (Negative) Urine Bilirubin (Negative) Urine Urobilinogen (Negative) Ur Leukocyte Esterase (Negative) Urine WBC (Auto) (0-5) /hpf Urine RBC (Auto) (0-4) /hpf U Hyaline Cast (Auto) (0-5) /lpf U Epithel Cells (Auto) (0-5) /lpf Urine Bacteria (Auto) (Negative) COVID-19 Eval Order Covid19 at [facility] SARS-CoV-2 (PCR) NEGATIVE (Negative) Imaging Data Radiologist's Impression: Chest X-Ray 08/18/20 11:39 XR chest 1V portable HISTORY: Atypical Chest Pain COMPARISON: Chest CTA 08/06/2020. FINDINGS: No pneumothorax. No pleural effusions. There is mild elevation of the right hemidiaphragm, unchanged. The heart remains mildly enlarged. A few linear densities within the left lung base favor subsegmental atelectasis. Otherwise, the lungs are clear. No new focal lung consolidations to suggest pneumonia. No evidence for pulmonary edema. IMPRESSION: No acute process within the chest. Stable mild cardiomegaly. ACT 112: Negative or not required by law. Electronically signed by: Mukesh Mcwilliams M.D. 08/18/2020 12:27 PM Knee X-Ray 08/18/20 11:40 RIGHT KNEE 2 VIEWS HISTORY: Right knee pain. fall COMPARISON: None. FINDINGS: There is no fracture or dislocation. Soft tissues are unremarkable. No radiopaque foreign bodies. No knee effusion. IMPRESSION: No fractures. ACT 112: Negative or not required by law. Electronically signed by: Mukesh Mcwilliams M.D. 08/18/2020 12:25 PM Abdomen/Pelvis CT 08/18/20 13:04 CT abd pelvis IV con only CLINICAL HISTORY: abd distention COMPARISON STUDY: 06/12/2018 TECHNIQUE: The patient was scanned in a dynamic helical fashion during intravenous administration of 94 cc of Optiray 320 A dose lowering technique was utilized adhering to the principles of ALARA. CT DOSE: 1112.62 mGycm FINDINGS: Lower chest: The heart is normal in size and configuration, without pericardial effusion. The lung bases and pleural spaces are clear. Liver: There is borderline hepatic steatosis. No focal masses are visualized. Hepatic and portal veins appear patent Gallbladder: Unremarkable. Spleen: Normal in size and attenuation. Pancreas: Unremarkable. Adrenal glands: Unremarkable. Kidneys: There is symmetric renal cortical enhancement. The kidneys are normal in size without hydronephrosis. Bowel: There are borderline dilated small bowel loops with scattered air-fluid levels. There is small bowel feces. There are no transition zones to indicate high-grade bowel obstruction. Diagnostic considerations include low-grade obstruction, ileus/motility disorder, or enteritis. There is no evidence of acute diverticulitis. There is a duodenal diverticulum Peritoneum: There is no intraperitoneal free air or abdominal ascites. There are small fat-containing umbilical hernia. Vasculature: The abdominal aorta is normal in course and caliber. Adenopathy: None. Pelvic viscera: The bladder, and pelvic viscera are unremarkable. Skeletal structures: No destructive osseous lesions are seen. IMPRESSION: 1. Borderline dilated small bowel loops with scattered air-fluid levels and small bowel feces. No discrete transition zones are visualized to indicate high- grade bowel obstruction 2. The findings are nonspecific and diagnostic considerations include low-grade obstruction, ileus/motility disorder, or enteritis. Clinical follow-up recommended 3. No evidence of acute diverticulitis. No evidence of acute appendicitis. 4. No evidence of pathologic adenopathy ACT 112: Negative or not required by law. Electronically signed by: Ashkan Ambrosio M.D. 08/18/2020 1:50 PM ECG Data Indication: + chest pain Rate (beats per minute): 90 Rhythm: + normal sinus ECG Intervals/blocks: + Normal QRS, + Normal SD and + Normal QT-c ECG ST segments: + Normal ST segments MDM Narrative 1120: The patient was evaluated in room C5. A complete history and physical exam was performed Cardiac monitoring: An order was placed for continuous cardiac monitoring. The monitor shows a rate of 80 with sinus rhythm EMR reviewed. Patient has a history of chronic shortness of breath, asthma, CVI D, leukocytosis, narcotic dependence, chronic back pain, and anxiety. Patient was seen in the emergency department on August 07, 2011 days ago. At that time he was being seen for difficulty breathing as well. At that time he started using a "rescue pack of prednisone and azithromycin". Patient had a negative chest x- ray and negative CT of the chest. His BNP was within normal limits. His white blood cell count was 15,000 and was thought to be due to the response of the steroids. Patient's weight today is 127.1 kg which does appear to be at the patient's baseline weight over the last 6 months. 1315: Vital signs stable. Labs show worsening leukocytosis of 17. Lactic acid elevated at 4.6. Blood cultures will be drawn. It is thought that this is too long for the patient to have a reactive leukocytosis secondary to steroid usage. Will also order CT of the abdomen. 1415: Vital signs stable. CT of the abdomen shows possible enteritis versus ileus. Urinalysis negative. Patient asking for pain medication. We will give the patient nonnarcotic pain medication as he has a history of opioid dependence. We will hold off on antibiotics on this patient as it could be that his leukocytosis and lactic acidemia could be due to a viral GI infection. EMR reviewed and the patient does have a chronically elevated lactic acid and he is on Metformin which could be reason for that versus infection. Blood cultures are still pending. Stool culture ordered. Discussed the case with [facility] [facility] hospitalist team Regina Longoria with Dr. Dougherty will evaluate the patient for admission. Impression & Plan Chest pain, Lactic acidemia Discharge Plan Visit Data Chief Complaint: Cardiac Assessment Stated Complaint: CHEST PAIN, SYNCOPE, FALL, KNEE PAIN ED Provider: Long Reza Discharge Problem: Chest pain, Lactic acidemia Patient Disposition: Being Evaluated by Hospitalist Forms Stand Alone Forms: Pending Sale To [facility] Prescriptions Prescriptions: No Action azelastine 137 mcg (0.1 %) aerosol,spray 1 sprays INTNAS BID Qty: 30 RF: 2 epinephrine 0.3 mg/0.3 mL auto-injector 0.3 mg IM Q20M PRN (Reason: anaphylaxis) Qty: 1 RF: 1 Dulera 200-5 mcg/actuation HFA aerosol inhaler 2 puff inhalation BID Qty: 13 RF: 5 sodium chloride [Curlew Saline] 0.65 % aerosol,spray 1 spray INTNAS BID PRN (Reason: dry nasal passages) Qty: 30 RF: 5 famotidine [Acid [employer] (famotidine)] 20 mg tablet 20 mg PO DAILY 42 Days Qty: 42 RF: 6 cholecalciferol (vitamin D3) 50,000 unit capsule 50,000 unit PO LANGSTON RF: 0 pregabalin 50 mg capsule 50 mg PO TID RF: 0 potassium chloride 20 mEq tablet extended release 20 meq PO DAILY Qty: 30 RF: 1 Gammagard Liquid 10 % solution 60 g IV .COMPLEX Qty: 400 RF: 11 diltiazem HCl 240 mg Capsule,Extended Release 24 Hr 240 mg PO QAM RF: 0 tamsulosin 0.4 mg Capsule 0.4 mg PO DAILY RF: 0 bupropion HCl [Wellbutrin SR] 150 mg Tablet Sustained-Release 12 Hr 150 mg PO BID RF: 0 atorvastatin 80 mg Tablet 80 mg PO HS RF: 0 aspirin [Aspirin Low Dose] 81 mg Tablet,Delayed Release (Dr/Ec) 81 mg PO QAM RF: 0 metformin 1,000 mg Tablet 1,000 mg PO BIDM RF: 0 lisinopril 10 mg Tablet 10 mg PO QAM RF: 0 montelukast [Singulair] 10 mg Tablet 10 mg PO PM RF: 0 fluticasone propionate [Flonase Allergy Relief] 50 mcg/actuation [place],Suspension 2 spray INTRANASAL BID RF: 0 glipizide 5 mg Tablet 5 mg PO QAM RF: 0 albuterol sulfate [Ventolin HFA] 90 mcg/actuation Hfa Aerosol Inhaler 2 puff INHALATION Q6H PRN (Reason: Shortness Of Breath Or Wheezing) RF: 0 gabapentin 800 mg tablet 800 mg PO QID RF: 0 cyanocobalamin (vitamin B-12) [Vitamin B-12] 1,000 mcg Tablet, Sublingual 1,000 mcg SUBLINGUAL DAILY RF: 0 insulin aspart U-100 [Novolog Flexpen U-100 Insulin] 100 unit/mL (3 mL) Insulin Pen 30 - 35 unit SUBCUT TIDM RF: 0 Lantus Solostar U-100 Insulin 100 unit/mL (3 mL) Insulin Pen 60 unit SUBCUT BID RF: 0 Trulicity 3 mg/0.5 mL pen injector 3 mg SUBCUT WK RF: 0 loperamide 2 mg capsule 2 mg PO BID RF: 0 omeprazole 40 mg capsule,delayed release(DR/EC) 40 mg PO DAILY RF: 0 carbamazepine 200 mg tablet 200 mg PO BID RF: 0 bumetanide 1 mg tablet 1 mg PO TID RF: 0 metoprolol succinate 25 mg tablet extended release 24 hr 37.5 mg PO DAILY RF: 0 escitalopram oxalate 10 mg tablet 10 mg PO QAM RF: 0 rosuvastatin 40 mg tablet 40 mg PO DAILY RF: 0 lorazepam 0.5 mg tablet 0.5 mg PO BID PRN (Reason: Anxiety) RF: 0 oxycodone 10 mg Tablet 10 mg PO Q6H PRN (Reason: Pain) RF: 0 nystatin 100,000 unit/mL suspension 2 ml PO QID PRN (Reason: infection) RF: 0 sodium chloride 7 % solution for nebulization 4 ml inhalation BID PRN (Reason: Shortness Of Breath) RF: 0 ipratropium bromide 42 mcg (0.06 %) spray,non-aerosol 2 spray intranasal DAILY PRN (Reason: Nasal Congestion) RF: 0 Referrals Referrals: Yann Fraga MD [Primary Care Provider] - Discharge Problem: Chest pain Qualifiers: Chest pain type: unspecified Qualified Code(s): R07.9 - Chest pain, unspecified
[2020-08-18 12:07] LABS: Partial Thromboplastin Ratio 0.9; Partial Thromboplastin Time 22.9 Seconds (21.0-31.0)
[2020-08-18 12:12] LABS: BUN Creatinine Ratio 15.9 (10-20); Blood Urea Nitrogen 22 mg/dl (7-18); Calcium 9.2 mg/dl (8.5-10.1); Carbon Dioxide 25 mmol/L (21-32); Chloride 104 mmol/L (98-107); Creatinine Clr Calc Pharmacy 76.3 ml/min; Est GFR (African American) 63.5 ml/min; Est GFR (Non-African American) 54.8 ml/min; Glucose 256 mg/dl (70-99); Lipase 140 U/L (73-393); Potassium 4.3 mmol/L (3.5-5.1); Sodium 138 mmol/L (136-145)
[2020-08-18 12:17] LABS: Troponin I < 0.015 ng/ml (0-0.045)
--- NOTE | 2020-08-18 12:26 | XRay Report ---
RIGHT KNEE 2 VIEWS HISTORY: Right knee pain. fall COMPARISON: None. FINDINGS: There is no fracture or dislocation. Soft tissues are unremarkable. No radiopaque foreign b odies. No knee effusion. IMPRESSION: No fractures. ACT 112: Negative or not required by law. Electronically signed by: Mukesh Mcwilliams M.D. 08/18/2020 12:25 PM
--- NOTE | 2020-08-18 12:28 | XRay Report ---
XR chest 1V portable HISTORY: Atypical Chest Pain COMPARISON: Chest CTA 08/06/2020. FINDINGS: No pneumothorax. No pleural effusions. There is mild elevation of the right hemidiaphragm, unchanged. The heart remains mildly enlarged. A few linear densities within the left lung base favor subsegmental atelectasis. Otherwise, the lungs are clear. No new focal lung consolidations to suggest pneumonia. No evidence for pulmonary edema. IMPRESSION: No acute process within the chest. Stable mild cardiomegaly. ACT 112: Negative or not required by law. Electronically signed by: Mukesh Mcwilliams M.D. 08/18/2020 12:27 PM
[2020-08-18] MEDS ORDERED: SODIUM CHLORIDE 0.9% 1000ML 1,000 ML IV ONE (13:03)
[2020-08-18] MEDS ORDERED: OPTIRAY 320 100ml IV ONE (13:36)
[2020-08-18] MEDS ORDERED: KETOROLAC TROMETHAMINE 15 MG/ML VIAL IV STA (13:49)
--- NOTE | 2020-08-18 13:51 | CT Scan Report ---
CT abd pelvis IV con only CLINICAL HISTORY: abd distention COMPARISON STUDY: 06/12/2018 TECHNIQUE: The patient was scanned in a dynamic helical fashion during intravenous administration of 94 cc of Optiray 320 A dose lowering technique was utilized adhering to the principles of ALARA. CT DOSE: 1112.62 mGycm FINDINGS: Lower chest: The heart is normal in size and configuration, without pericardial effusion. The lung ba ses and pleural spaces are clear. Liver: There is borderline hepatic steatosis. No focal masses are visualized. Hepatic and portal vein s appear patent Gallbladder: Unremarkable. Spleen: Normal in size and attenuation. Pancreas: Unremarkable. Adrenal glands: Unremarkable. Kidneys: There is symmetric renal cortical enhancement. The kidneys are normal in size without hydron ephrosis. Bowel: There are borderline dilated small bowel loops with scattered air-fluid levels. There is small bowel feces. There are no transition zones to indicate high-grade bowel obstruction. Diagnostic cons iderations include low-grade obstruction, ileus/motility disorder, or enteritis. There is no evidence of acute diverticulitis. There is a duodenal diverticulum Peritoneum: There is no intraperitoneal free air or abdominal ascites. There are small fat-containing umbilical hernia. Vasculature: The abdominal aorta is normal in course and caliber. Adenopathy: None. Pelvic viscera: The bladder, and pelvic viscera are unremarkable. Skeletal structures: No destructive osseous lesions are seen. IMPRESSION: 1. Borderline dilated small bowel loops with scattered air-fluid levels and small bowel feces. No dis crete transition zones are visualized to indicate high-grade bowel obstruction 2. The findings are nonspecific and diagnostic considerations include low-grade obstruction, ileus/mo tility disorder, or enteritis. Clinical follow-up recommended 3. No evidence of acute diverticulitis. No evidence of acute appendicitis. 4. No evidence of pathologic adenopathy ACT 112: Negative or not required by law. Electronically signed by: Ashkan Ambrosio M.D. 08/18/2020 1:50 PM
[2020-08-18 14:08] LABS: Appearance Urine Clear (Clear); Bacteria Urine Automated Negative (Negative); Bilirubin Urine Negative (Negative); Blood Urine Negative (Negative); Color Urine Yellow; Glucose Urine UA 3+ (Negative); Ketones Urine 1+ (Negative); Leukocyte Esterase Urine Negative (Negative); Nitrite Urine Negative (Negative); Protein Urine Trace (Negative); RBC Urine Automated 0-4 /hpf (0-4); Specific Gravity Urine 1.026 (1.000-1.030); Urobilinogen Urine Negative (Negative)
--- NOTE | 2020-08-18 15:50 | History & Physical Report ---
Date of Service August 18, 2020 Assessment & Plan (1) Enteritis: This is a 59-year-old male with PMH of type 2 diabetes, diabetic polyneuropathy, chronic bronchitis, nocturnal hypoxemia, chronic diastolic dysfunction, hypertension, NAFLD, CKD 3, chronic pain syndrome, tobacco use and other medical problems listed below who presents from home after panic attack followed by possible syncopal episode and fall onto his knees. Non-toxic appearance, no abd pain, nausea, vomiting or diarrhea Abdominal bloating, leukocytosis of 17 likely related to ongoing steroid use, initial lactate of 4, repeat 2.8 (baseline high 2s) CT abd/pelvis with: * borderline dilated small bowel loops with scattered air-fluid levels and small bowel feces. No discrete transition zones are visualized to indicate high- grade bowel obstruction * findings are nonspecific and diagnostic considerations include low-grade obstruction, ileus/motility disorder, or enteritis. Clinical follow-up recommended Cover empirically with levaquin and flagyl Gastroparesis should be considered as patient is diabetic (2) Knee pain: Fell onto knees today, R knee with small abrasion R knee XR -No fractures Continue home oxycodone, Toradol PRN, ice (3) Syncope: Reported syncopal episode with position change in the midst of panic attack History of vasodepressor syncope -diagnosis made via tilt table in 2001, follows with Dr. Greco Event today occurred in setting of acute emotional distress and high heat, no head trauma or recurrence Asymptomatic, monitor on telemetry (4) Atypical chest pain: In setting of panic attack, acid reflux after eating this morning - resolved EKG without acute changes, troponin negative Observe on tele (5) Mucopurulent chronic bronchitis: Follows with pulmonology, currently on prednisone taper 20mg daily Lungs clear on exam, improving with OP regimen Continue home inhalers, nebs (6) Diabetes mellitus, type II: A1c 8.5 in July 2020 Hold home agents SSI while in-patient Glycemic consult placed BSG AC HS (7) Chronic back pain: (8) Narcotic dependence: Continue home oxycodone (9) Atrial fibrillation: Continue diltiazem, toprol (10) Lower extremity edema: Controlled - continue Bumex (11) Mood disorder: Continue SSRI, Wellbutrin, Ativan PRN (12) Tobacco use: Cessation encouraged (13) Sleep apnea: 2L NC O2 HS DVT Ppx: SQ heparin Code status: FULL PCP: Flakito Dispo: Med tele Patient seen in collaboration with Dr. Moses. Please see addendum. History of Present Illness Chief Complaint: Chest pain, knee pain, anxiety Primary Care Provider: Yann Fraga MD This is a 59-year-old male with PMH of type 2 diabetes, diabetic polyneuropathy, chronic bronchitis, nocturnal hypoxemia, chronic diastolic dysfunction, hypertension, NAFLD, CKD 3, chronic pain syndrome, tobacco use and other medical problems listed below who presents from home after panic attack followed by possible syncopal episode and fall onto his knees. Patient is feeling very anxious this morning and took Ativan with little relief. Called PCP's office, who recommended he come to ED for further evaluation. States that made him more anxious and he developed chest discomfort described as pressure. Was also eating at this time and states that indigestion could have also been playing a role. While walking out to EMS, patient became acutely dizzy and fell onto his knees. Denies any trauma to head. Main complaint at this time is right knee pain from fall. Has difficulty with ambulation at baseline due to polyneuropathy. Denies any chest pain at this time. Has abdominal bloating but states he is having regular bowel movements. On chronic oxycodone but taking stool softener to avoid OIC. Denies any fever, chills, headache, chest pain, palpitations, shortness of breath, nausea, vomiting, abdominal pain, dysuria or diarrhea. Allergies Allergy/AdvReac Type Severity Reaction Status Date / Time atenolol Allergy Severe DEPRESSION/ Verified 08/18/20 14:15 SUICIDAL amoxicillin Allergy Intermediate "SEVERE" Verified 08/18/20 14:15 DIARRHEA celecoxib Allergy Intermediate FLUID Verified 08/18/20 14:15 RETENTION-WT GAIN clavulanic acid Allergy Intermediate "SEVERE" Verified 08/18/20 14:15 DIARRHEA adhesive tape Allergy Mild Rash Verified 08/18/20 14:15 fluoxetine AdvReac Severe HALLUCINATI Verified 08/18/20 14:15 ONS Home Medications Medication Instructions Recorded Confirmed Type albuterol sulfate [Ventolin HFA] 2 puff INHALATION Q6H PRN 03/15/18 08/18/20 History aspirin [Aspirin Low Dose] 81 mg PO QAM 03/15/18 08/18/20 History bupropion HCl [Wellbutrin SR] 150 mg PO BID 03/15/18 08/18/20 History fluticasone propionate [Flonase 2 spray INTRANASAL BID 03/15/18 08/18/20 History Allergy Relief] glipizide 5 mg PO QAM 03/15/18 08/18/20 History lisinopril 10 mg PO QAM 03/15/18 08/18/20 History metformin 1,000 mg PO BIDM 03/15/18 08/18/20 History diltiazem HCl 240 mg PO QAM 06/12/18 08/18/20 History cholecalciferol (vitamin D3) 1,250 50,000 unit PO LANGSTON cap 10/02/18 08/18/20 History mcg (50,000 unit) capsule tamsulosin 0.4 mg PO DAILY 12/10/18 08/18/20 History gabapentin 800 mg tablet 800 mg PO QID tab 06/26/19 08/18/20 History potassium chloride 20 mEq 20 meq PO DAILY #30 tab 06/27/19 08/18/20 Rx tablet,extended release azelastine 137 mcg (0.1 %) nasal 1 sprays INTNAS BID #30 ml 07/25/19 08/18/20 Rx spray aerosol epinephrine 0.3 mg/0.3 mL 0.3 mg IM Q20M PRN #1 ea 08/21/19 08/18/20 Rx injection, auto-injector sodium chloride 0.65 % nasal spray 1 spray INTNAS BID PRN #30 ml 11/27/19 08/18/20 Rx aerosol famotidine 20 mg tablet 20 mg PO DAILY 42 Days #42 tab 04/27/20 08/18/20 Rx ipratropium bromide 2 spray INTRANASAL DAILY PRN 05/02/20 08/18/20 History lorazepam 0.5 mg PO BID PRN 05/02/20 08/18/20 History nystatin 2 ml PO QID PRN 05/02/20 08/18/20 History oxycodone 10 mg PO Q6H PRN 05/02/20 08/18/20 History sodium chloride 4 ml INHALATION BID PRN 05/02/20 08/18/20 History immune glob,gamma (IgG) 10 60 g IV .COMPLEX #400 ml 05/07/20 08/18/20 Rx %-gly-IgA over 50 mcg/mL injection solution cyanocobalamin (vitamin B-12) 1,000 mcg SUBLINGUAL DAILY 08/06/20 08/18/20 History [Vitamin B-12] dulaglutide [Trulicity] 3 mg SUBCUT WK 08/06/20 08/18/20 History insulin aspart U-100 [Novolog 30 - 35 unit SUBCUT TIDM 08/06/20 08/18/20 History Flexpen U-100 Insulin] insulin glargine [Lantus Solostar 60 unit SUBCUT BID 08/06/20 08/18/20 History U-100 Insulin] albuterol sulfate 2.5 mg INHALATION Q6H PRN 08/18/20 08/18/20 History bumetanide 1 mg PO TID 08/18/20 08/18/20 History carbamazepine 200 mg PO BID 08/18/20 08/18/20 History diclofenac sodium 75 mg PO BID 08/18/20 08/18/20 History escitalopram oxalate 10 mg PO DAILY 08/18/20 08/18/20 History pztlcnybnsz-vmcxzwyne-wvrjwvzr 1 inh INHALATION DAILY 08/18/20 08/18/20 History [Trelegy Ellipta] loperamide 2 mg PO BID 08/18/20 08/18/20 History metoprolol succinate 37.5 mg PO DAILY 08/18/20 08/18/20 History naloxone 4 mg INTRANASAL UD 08/18/20 08/18/20 History prednisone 20 mg PO DAILY 08/18/20 08/18/20 History rosuvastatin 40 mg PO DAILY 08/18/20 08/18/20 History Past Med/Surg History Medical History (Updated 08/18/20 @ 22:35 by Regina Longoria PA-C) Anxiety Benign hypertension Benign prostatic hyperplasia with urinary obstruction BPH (benign prostatic hyperplasia) Cervical disc disorder Chronic back pain Chronic neck pain Chronic pain Chronic pain syndrome COPD (chronic obstructive pulmonary disease) Costochondritis Depression Diabetes mellitus, type II IDDM Diabetic neuropathy Dizziness Dyslipidemia Elevated diaphragm GERD (gastroesophageal reflux disease) Grade II diastolic dysfunction Hearing deficit RIGHT EAR DEAF Heartburn HLD (hyperlipidemia) HTN (hypertension) Kidney stones Mood disorder Narcotic dependence Neck pain Normal colonoscopy On anticoagulant therapy ASA 81MG Osteoarthritis Physical deconditioning Pneumonia MAY 2018 Sleep apnea 2LPM VIA N/C Steatosis of liver (Unknown) Tingling Tobacco use Ureteral stone Vasodepressor syncope Surgical History History of colonoscopy History of esophagogastroduodenoscopy (EGD) History of lithotripsy S/P PICC central line placement WITH REMOVAL (JUNE 2018) Family History Grandmother Family history of diabetes mellitus Cancer Father Family history of high blood pressure FHx: heart disease Hypertension Sister Asthma Allergies Hypertension Mother Hearing loss Hypertension Uncle Hypertension Other Heart disease No family history of adverse response to anesthesia No family history of bleeding disorder Social History Smoking Status: Never smoker Tobacco Type: Smokeless Tobacco (Dip or Chew) Second Hand Exposure: No; Do You Dip or Chew Tobacco: No; Tobacco Cessation Education Requested by Patient: No Hx Alcohol Use: No Hx Substance Use: No Preferred Language: Portuguese Communication Ability: Effective Visual Impairment: Limited Layout Artist Required: No Beliefs That Will Affect Care: None marital status: Current Living Situation: Spouse Current Living Situation Comment: Home with spouse current occupational status: unemployed and disabled Other Information That Helps Us Care for You: No Feels Safe at Home: Yes Safety Concerns: Feels Safe At This Time Assistive Devices: Oxygen - at Night Review of Systems Review of Systems: At least ten systems reviewed and negative except as noted in the HPI. Physical Exam Physical Exam: General Appearance: WD/WN, vitals as above, NAD, sitting up in bed, obese, conversing easily Head: normocephalic, atraumatic Eyes: normal inspection, PERRL, conjunctivae normal, anicteric sclerae ENT: external ear and nose normal, oropharynx normal Neck: normal visual inspection, trachea midline, no thyromegaly Respiratory: normal respiratory effort, lungs clear to auscultation, no wheeze, rales, rhonchi. No accessory muscle use Cardiovascular: tachycardic rate, rhythm, no murmur, normal peripheral pulses, trace BLE edema. Vessels: no JVD Chest: normal inspection of chest Abdomen/GI: normal bowel sounds, distended but soft, nontender, no hepatosplenomegaly Extremities/Musculoskeletal: + R knee small abrasian. No cyanosis or clubbing, extremities motor strength 5/5 Neurologic: PERRL, EOMI, accommodation nl, no face palsy, no dysarthria, CN's II-XI intact bilaterally and moves all extremities Psychiatric: A+Ox3, euthymic affect Skin: no rashes, normal color, warm/dry Results & Data Results & Data ([facility]) Vital Signs (Past 12 Hours) Vital Signs Temp Pulse Resp BP Pulse Ox 08/18/20 13:10 94 08/18/20 13:00 105 H 15 135/94 98 08/18/20 12:50 94 H 18 93 08/18/20 12:40 93 H 19 93 08/18/20 12:30 99 H 29 H 143/102 H 95 08/18/20 12:20 94 H 22 95 08/18/20 12:10 94 H 17 95 08/18/20 12:00 101 H 18 149/81 H 93 08/18/20 11:50 97 H 12 97 08/18/20 11:42 65 12 96 08/18/20 11:40 105 H 20 91 08/18/20 11:30 97 H 14 123/92 97 08/18/20 11:20 99 H 29 H 95 08/18/20 11:10 103 H 17 96 08/18/20 11:00 97 H 22 157/98 H 97 08/18/20 10:50 96 H 20 97 08/18/20 10:45 94 H 19 96 08/18/20 10:44 36.6 C 95 H 24 147/94 H 97 08/18/20 10:42 94 H 25 H 147/94 H 97 Supervising Physician Co-Signing Physician Notes I saw this patient with the physician assistant store manager trainee, I participated in the history, physical, review of systems, and physical exam. I reviewed the medications with the patient and the physician assistant store manager trainee and helped reconcile the medications. I helped take a detailed family and social history as well. I formulated the assessment and plan personally with the physician assistant store manager trainee and went over it with the patient. Physical Exam Gen-AAO x 3, NAD, Afebrile, Obese Head-NCAT, EOMI, PERRLA, Anicteric Sclera, No Posterior Pharyngeal Erythema Neck-Supple, No JVD, No Thyromegaly, No Masses, No LAD, No Bruits Lungs-Clear to Auscultation Bilaterally, No Rales, No Rhonchi, No Wheezing, No Crepitus Chest-No S4, +S1, +S2, No S3, No Murmurs, No Rubs, No Gallops, No Ectopy Abdomen-Soft, Bowel Sounds Present, Non Tender, Distended, No Hepatomegaly, No Splenomegaly, No Palpable Masses, No Rebound, No Rigidity, No Guarding Musculoskeletal-Full Range of Motion Bilaterally, No CVAT Extremities-No Cyanosis, No Clubbing, No Edema, +Scrapes on Knees B/L from fall Nuero-Cranial Nerves II-XII grossly intact, Motor WNL, DTRs WNL, Strength WNL, Non Focal Psych-Anxious
[2020-08-18] MEDS ORDERED: ACETAMINOPHEN 325 MG TAB PO PRN (17:09)
[2020-08-18] MEDS ORDERED: ONDANSETRON INJ 2 MG/ML 2 ML VIAL IV PRN (17:09)
[2020-08-18] MEDS ORDERED: POLYETHYLENE (MIRALAX) 17 GM PACK PO PRN (17:09)
[2020-08-18] MEDS ORDERED: CIPROFLOXACIN / D5W 400 MG/200 ML BAG IV STA (17:19)
[2020-08-18] MEDS ORDERED: metroNIDAZOLE 500 MG/100 ML BAG IV STA (17:21)
[2020-08-18] MEDS ORDERED: CIPROFLOXACIN CONSULT ACTIVE PRN (17:22)
[2020-08-18] MEDS ORDERED: IPRATROPIUM BROMIDE NASAL SPRAY 0.06% 15ML NAE PRN (18:19)
[2020-08-18] MEDS ORDERED: ALBUTEROL 0.083% NEBU SOLN 3 ML VIAL INH PRN (18:19)
[2020-08-18] MEDS: KETOROLAC TROMETHAMINE 15 MG/ML VIAL IV PRN (18:44)
[2020-08-18] MEDS: oxyCODONE HCL IR 5 MG TAB (IMMEDIATE RELEASE) PO PRN (18:54)
[2020-08-18] MEDS ORDERED: ALBUTEROL HFA 8 GM INHALER INH PRN (19:20)
[2020-08-18] MEDS ORDERED: SODIUM CHLOR 7% 4 ML NEB INH PRN (19:20)
[2020-08-18] MEDS ORDERED: SODIUM CHLORIDE 0.65% NA SOLN 45 ML (OCEAN) NAE PRN (19:20)
[2020-08-18] MEDS ORDERED: CARBOHYDRATES FOR HYPOGLYCEMIA PO PRN (19:39)
[2020-08-18] MEDS ORDERED: GLUCOSE 40% GEL 15 GM TUBE PO PRN (19:39)
[2020-08-18] MEDS ORDERED: GLUCOSE 10 TABS/TUBE PO PRN (19:39)
[2020-08-18] MEDS ORDERED: DEXTROSE 50% 50 ML SYRINGE IV PRN (19:39)
[2020-08-18] MEDS ORDERED: GLUCAGON FOR INJ 1 MG VIAL SQ PRN (19:39)
[2020-08-18] MEDS ORDERED: PHARMACY GLYCEMIC MGMT CONSULT SCH (19:49)
[2020-08-18] MEDS: LORazepam 0.5 MG TAB PO PRN (20:20)
[2020-08-18] MEDS: BUMETANIDE 1 MG TAB PO SCH (20:21)
[2020-08-18] MEDS: INSULIN ASPART 100 UNITS/ML 3 ML PEN SC SCH (20:31)
[2020-08-18] MEDS: GABAPENTIN 800 MG TAB PO SCH (20:41)
[2020-08-18] MEDS: FLUTICASONE PROPIONATE NA SPR 16 GM BTL NAE SCH (20:41)
[2020-08-18] MEDS: carBAMazepine 200 MG TABLET PO SCH (20:41)
[2020-08-18] MEDS: buPROPion SR 150 MG TABCR PO SCH (20:41)
[2020-08-18] MEDS: LOPERAMIDE HCL 2 MG CAP PO SCH (20:41)
[2020-08-18] MEDS ORDERED: INSULIN GLARGINE 100 UNIT/ML VIAL SC STA (20:59)
[2020-08-18] MEDS ORDERED: HYDROmorphone INJ 0.5 MG/0.5 ML SYR IV STA (21:01)
[2020-08-19] MEDS: metroNIDAZOLE 500 MG/100 ML BAG IV SCH ×3 (00:27→18:18)
[2020-08-19] MEDS ORDERED: INSULIN ASPART 100 UNITS/ML 3 ML PEN SC ONE (02:00)
[2020-08-19] MEDS: HEPARIN SOD 5,000 UNIT/0.5 ML VIAL SQ SCH ×3 (05:10→22:52)
[2020-08-19] MEDS: levoFLOXacin/D5W 750 MG/150 ML BAG IV SCH (05:11)
[2020-08-19] MEDS ORDERED: CIPROFLOXACIN / D5W 400 MG/200 ML BAG IV SCH (06:00)
--- NOTE | 2020-08-19 07:35 | Hospitalist Progress Note ---
Date of Service August 19, 2020 Assessment & Plan (1) Enteritis: This is a 59-year-old male with PMH of type 2 diabetes, diabetic polyneuropathy, chronic bronchitis, nocturnal hypoxemia, chronic diastolic dysfunction, hypertension, NAFLD, CKD 3, chronic pain syndrome, tobacco use and other medical problems listed below who presents from home after panic attack followed by possible syncopal episode and fall onto his knees. Non-toxic appearance, no abd pain, nausea, vomiting or diarrhea Abdominal bloating, leukocytosis of 17 likely related to ongoing steroid use, initial lactate of 4, repeat 2.8 (baseline high 2s) CT abd/pelvis with: * borderline dilated small bowel loops with scattered air-fluid levels and small bowel feces. No discrete transition zones are visualized to indicate high- grade bowel obstruction * findings are nonspecific and diagnostic considerations include low-grade obstruction, ileus/motility disorder, or enteritis. Clinical follow-up recommended Cover empirically with levaquin and flagyl Gastroparesis should be considered as patient is diabetic NM Gastric Emptying Study Today (2) Knee pain: Fell onto knees, R knee with small abrasion R knee XR -No fractures Continue home oxycodone, Toradol PRN, ice (3) Syncope: Reported syncopal episode with position change in the midst of panic attack History of vasodepressor syncope-diagnosis made via tilt table in 2001, follows with Dr. Greco Event today occurred in setting of acute emotional distress and high heat, no head trauma or recurrence Asymptomatic, monitor on telemetry (4) Atypical chest pain: In setting of panic attack, acid reflux after eating this morning -resolved EKG without acute changes, troponin negative (5) Mucopurulent chronic bronchitis: Follows with pulmonology, currently on prednisone taper 20mg daily Lungs clear on exam, improving with OP regimen Continue home inhalers, nebs (6) Diabetes mellitus, type II: A1c 8.5 in July 2020 Hold home agents SSI while in-patient Glycemic consult placed BSG AC HS (7) Chronic back pain: (8) Narcotic dependence: Continue home oxycodone (9) Atrial fibrillation: Continue diltiazem, toprol (10) Lower extremity edema: Controlled - continue Bumex (11) Mood disorder: Continue SSRI, Wellbutrin, Ativan PRN (12) Tobacco use: Cessation encouraged (13) Sleep apnea: 2L NC O2 HS DVT Ppx: SQ heparin Code status: FULL PCP: Flakito Dispo: Med tele Labs checked ROS-No Headache, No Visual Changes, No Nausea, No Vomiting, No Fever, No Chills, No Neck Pain or Stiffness, No Chest Pain, No Palpitations, No SOB, No VAZQUEZ, No Cough, No Sputum, No Wheezing, No Abdominal Pain, No Diarrhea, No Hematemesis, No Hemoptysis, No Unexpected Weight Loss, No Flank pain, No Melena, No Hematochezia, No Frequency, No Urgency, No Burning, No Hematuria, No Rashes, No Diaphoresis. Appetite is Normal, Feels a little better today Physical Exam Gen-AAO x 3, NAD, Afebrile Head-NCAT, EOMI, PERRLA, Anicteric Sclera, No Posterior Pharyngeal Erythema Neck-Supple, No JVD, No Thyromegaly, No Masses, No LAD, No Bruits Lungs-Clear to Auscultation Bilaterally, No Rales, No Rhonchi, No Wheezing, No Crepitus Chest-No S4, +S1, +S2, No S3, No Murmurs, No Rubs, No Gallops, No Ectopy Abdomen-Soft, Bowel Sounds Present, Non Tender, Distended, No Hepatomegaly, No Splenomegaly, No Palpable Masses, No Rebound, No Rigidity, No Guarding Musculoskeletal-Full Range of Motion Bilaterally, No CVAT Extremities-No Cyanosis, No Clubbing, No Edema Nuero-Cranial Nerves II-XII grossly intact, Motor WNL, DTRs WNL, Strength WNL, Non Focal Psych-Anxious Admission and Anticipated Discharge Date Admission Date: August 18, 2020 Results & Data Results & Data ([facility]) Vital Signs (Past 12 Hours) Vital Signs Temp Pulse Pulse Resp BP Pulse Ox 08/19/20 07:04 84 08/19/20 03:07 36.5 C 99 H 20 121/70 96 08/19/20 00:45 102 H 08/18/20 22:56 36.7 C 102 H 20 131/81 96
[2020-08-19 07:45] LABS: Hematocrit (blood only) 40.1 % (42-52); Hemoglobin 12.8 g/dL (14.0-18.0); Mean Corpuscular Hemoglobin 28.9 pg (25-34); Mean Corpuscular Hgb Conc 31.9 g/dL (32-36); Mean Corpuscular Volume 90.5 fL (80-100); Mean Platelet Volume 11.6 fL (7.4-10.4); Platelet Count 205 K/uL (130-400); RDW Coefficient of Variation 14.3 % (11.5-14.5); Red Blood Count 4.43 M/uL (4.7-6.1); White Blood Count 12.64 K/uL (4.8-10.8)
[2020-08-19 08:19] LABS: BUN Creatinine Ratio 18.7 (10-20); Calcium 8.2 mg/dl (8.5-10.1); Creatinine Clr Calc Pharmacy 91.6 ml/min; Est GFR (African American) 79.2 ml/min; Est GFR (Non-African American) 68.3 ml/min; Potassium 3.9 mmol/L (3.5-5.1)
[2020-08-19] MEDS: GABAPENTIN 800 MG TAB PO SCH ×4 (08:26→20:17)
[2020-08-19] MEDS: oxyCODONE HCL IR 5 MG TAB (IMMEDIATE RELEASE) PO PRN ×2 (08:26→16:33)
[2020-08-19] MEDS: INSULIN ASPART 100 UNITS/ML 3 ML PEN SC SCH ×4 (08:27→20:36)
[2020-08-19] MEDS: buPROPion SR 150 MG TABCR PO SCH ×2 (08:30→20:19)
[2020-08-19] MEDS: BUMETANIDE 1 MG TAB PO SCH ×3 (08:30→16:33)
[2020-08-19] MEDS: carBAMazepine 200 MG TABLET PO SCH ×2 (08:30→20:18)
[2020-08-19] MEDS: ROSUVASTATIN CALCIUM 20 MG TAB PO SCH (08:31)
[2020-08-19] MEDS: TAMSULOSIN HCL 0.4 MG CAP PO SCH (08:31)
[2020-08-19] MEDS: POTASSIUM CHLORIDE CRTAB 20 MEQ TABCR PO SCH (08:31)
[2020-08-19] MEDS: ASPIRIN 81 MG ECTAB PO SCH (08:31)
[2020-08-19] MEDS: ESCITALOPRAM OXALATE 10 MG TAB PO SCH (08:31)
[2020-08-19] MEDS: CYANOCOBALAMIN 500 MCG TABLET (VITAMIN B-12) PO SCH (08:32)
[2020-08-19] MEDS: METOPROLOL SUCC 25MG EXT REL TAB PO SCH (08:32)
[2020-08-19] MEDS: dilTIAZem HCL 240 MG CAPCR PO SCH (08:32)
[2020-08-19] MEDS: FAMOTIDINE 20 MG TAB PO SCH (08:32)
[2020-08-19] MEDS: predniSONE 20 MG TAB PO SCH (08:32)
[2020-08-19] MEDS: UMECLIDINIUM/VILANTEROL 62.5/25MCG 7 PUFFS/INHALER INH SCH (08:33)
[2020-08-19] MEDS: FLUTICASONE FUROATE 100MCG 14 PUFFS/INHALER INH SCH (08:34)
[2020-08-19] MEDS: FLUTICASONE PROPIONATE NA SPR 16 GM BTL NAE SCH ×2 (08:35→20:23)
[2020-08-19] MEDS: LOPERAMIDE HCL 2 MG CAP PO SCH ×2 (08:37→20:17)
[2020-08-19] MEDS: INSULIN GLARGINE 100 UNIT/ML VIAL SC SCH ×2 (08:42→20:39)
[2020-08-19] MEDS ORDERED: FLUTICASONE FUROATE 200MCG 14 PUFFS/INHALER INH SCH (09:00)
[2020-08-19] MEDS ORDERED: NON-FORMULARY MEDICATION (Fluticasone-Umeclidin-Vilanter [Trelegy Ellipta] 100-62.5-25 mcg INH SCH (09:00)
--- NOTE | 2020-08-19 11:05 | Pharmacy Report ---
Pharmacy Glycemic Short Note 2 - Date of Service August 19, 2020 - Glycemic Short BSG Results (Last 24 hours): 08/18/20 08/18/20 08/18/20 11:18 18:52 20:26 Glucose 256 H POC Glucose 150 H 153 H 08/19/20 08/19/20 08/19/20 01:03 01:04 01:23 Glucose POC Glucose 63 L* 64 L* 80 08/19/20 08/19/20 07:20 07:51 Glucose 119 H POC Glucose 165 H OUTPATIENT ANTIDIABETIC REGIMEN: * Trulicity * Glipizide * Lantus 60 units SQ BID * Novolog 30-35 units SQ TIDM * A1c = 8.6% on 06/10/19 ASSESSMENT: * 59yo T2Dm male on large doses of insulin + glipizide + GLP1RA as an outpatient. * GLP1 & glipizide held on admission. Outpatient Lantus dosing cut in half on admission. * Unfortunately, pt had a non-critical low BSG over night. 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 * PO intake adequate per CHO counts. * Will continue reduced outpatient dosing of insulin and titrate based on BSG trends PLAN FOR INPATIENT GLYCEMIC CONTROL: * Hold outpatient diabetes medications (glipizide + Trulicity) * Basal insulin * Lantus 30 units SQ BID * Bolus insulin * NovoLog per scale ACHS or Q6hrs while NPO * Goal Range: Low 110 mg/dL - High 140 mg/dL * Correction Factor: 14 mg/dL/unit * Nutritional / Prandial insulin per carb ratio of 1 unit per 4 grams CHO consumed PLAN FOR DISCHARGE: * TBD
[2020-08-19] MEDS: KETOROLAC TROMETHAMINE 15 MG/ML VIAL IV PRN (12:37)
[2020-08-20] MEDS: metroNIDAZOLE 500 MG/100 ML BAG IV SCH ×2 (02:06→08:41)
[2020-08-20] MEDS: oxyCODONE HCL IR 5 MG TAB (IMMEDIATE RELEASE) PO PRN (05:09)
[2020-08-20] MEDS: levoFLOXacin/D5W 750 MG/150 ML BAG IV SCH (06:17)
[2020-08-20] MEDS: HEPARIN SOD 5,000 UNIT/0.5 ML VIAL SQ SCH (06:21)
[2020-08-20 07:10] LABS: Hemoglobin 12.9 g/dL (14.0-18.0); Mean Corpuscular Hemoglobin 28.9 pg (25-34); Mean Corpuscular Hgb Conc 32.3 g/dL (32-36); Mean Corpuscular Volume 89.7 fL (80-100); Mean Platelet Volume 11.1 fL (7.4-10.4); Platelet Count 207 K/uL (130-400); RDW Coefficient of Variation 14.3 % (11.5-14.5); RDW Standard Deviation 47.2 fL (36.4-46.3); Red Blood Count 4.46 M/uL (4.7-6.1); White Blood Count 13.37 K/uL (4.8-10.8)
[2020-08-20] MEDS: FLUTICASONE PROPIONATE NA SPR 16 GM BTL NAE SCH (07:41)
[2020-08-20] MEDS: UMECLIDINIUM/VILANTEROL 62.5/25MCG 7 PUFFS/INHALER INH SCH (07:42)
[2020-08-20] MEDS: FLUTICASONE FUROATE 100MCG 14 PUFFS/INHALER INH SCH (07:42)
--- NOTE | 2020-08-20 07:42 | Discharge Summary ---
Date of Service August 20, 2020 Admission HPI Per Admitting Provider This is a 59-year-old male with PMH of type 2 diabetes, diabetic polyneuropathy, chronic bronchitis, nocturnal hypoxemia, chronic diastolic dysfunction, hypertension, NAFLD, CKD 3, chronic pain syndrome, tobacco use and other medical problems listed below who presents from home after panic attack followed by possible syncopal episode and fall onto his knees. Patient is feeling very anxious this morning and took Ativan with little relief. Called PCP's office, who recommended he come to ED for further evaluation. States that made him more anxious and he developed chest discomfort described as pressure. Was also eating at this time and states that indigestion could have also been playing a role. While walking out to EMS, patient became acutely dizzy and fell onto his knees. Denies any trauma to head. Main complaint at this time is right knee pain from fall. Has difficulty with ambulation at baseline due to polyneuropathy. Denies any chest pain at this time. Has abdominal bloating but states he is having regular bowel movements. On chronic oxycodone but taking stool softener to avoid OIC. Denies any fever, chills, headache, chest pain, palpitations, shortness of breath, nausea, vomiting, abdominal pain, dysuria or diarrhea. Admission Exam Per Admitting Provider General Appearance: WD/WN, vitals as above, NAD, sitting up in bed, obese, conversing easily Head: normocephalic, atraumatic Eyes: normal inspection, PERRL, conjunctivae normal, anicteric sclerae ENT: external ear and nose normal, oropharynx normal Neck: normal visual inspection, trachea midline, no thyromegaly Respiratory: normal respiratory effort, lungs clear to auscultation, no wheeze, rales, rhonchi. No accessory muscle use Cardiovascular: tachycardic rate, rhythm, no murmur, normal peripheral pulses, trace BLE edema. Vessels: no JVD Chest: normal inspection of chest Abdomen/GI: normal bowel sounds, distended but soft, nontender, no hepatosplenomegaly Extremities/Musculoskeletal: + R knee small abrasian. No cyanosis or clubbing, extremities motor strength 5/5 Neurologic: PERRL, EOMI, accommodation nl, no face palsy, no dysarthria, CN's II-XI intact bilaterally and moves all extremities Psychiatric: A+Ox3, euthymic affect Skin: no rashes, normal color, warm/dry Principal Diagnosis (1) Enteritis: (2) Knee pain: (3) Syncope: (4) Atypical chest pain: (5) Mucopurulent chronic bronchitis: (6) Diabetes mellitus, type II: (7) Chronic back pain: (8) Narcotic dependence: (9) Atrial fibrillation: (10) Lower extremity edema: (11) Mood disorder: (12) Tobacco use: (13) Sleep apnea: Discharge Exam See below Discharge Data Allergies Allergy/AdvReac Type Severity Reaction Status Date / Time atenolol Allergy Severe DEPRESSION/ Verified 08/18/20 14:15 SUICIDAL amoxicillin Allergy Intermediate "SEVERE" Verified 08/18/20 14:15 DIARRHEA celecoxib Allergy Intermediate FLUID Verified 08/18/20 14:15 RETENTION-WT GAIN clavulanic acid Allergy Intermediate "SEVERE" Verified 08/18/20 14:15 DIARRHEA adhesive tape Allergy Mild Rash Verified 08/18/20 14:15 fluoxetine AdvReac Severe HALLUCINATI Verified 08/18/20 14:15 ONS Consultations 08/18/20 14:14 ED Decision to Admit Stat Ordered Studies 08/18/20 13:04 CT abd pelvis IV con only Stat Current Diagnoses Type 2 diabetes mellitus without complications (08/18/20) Opioid dependence, uncomplicated (08/18/20) Unspecified mood [affective] disorder (08/18/20) Sleep apnea, unspecified (08/18/20) Other chronic pain (08/18/20) Unspecified atrial fibrillation (08/18/20) Mucopurulent chronic bronchitis (08/18/20) Noninfective gastroenteritis and colitis, unspecified (08/18/20) Pain in unspecified knee (08/18/20) Dorsalgia, unspecified (08/18/20) Other chest pain (08/18/20) Syncope and collapse (08/18/20) Localized edema (08/18/20) Tobacco use (08/18/20) Allergies atenolol Allergy (Severe, Verified 08/18/20 14:15) DEPRESSION/SUICIDAL amoxicillin Allergy (Intermediate, Verified 08/18/20 14:15) "SEVERE" DIARRHEA celecoxib Allergy (Intermediate, Verified 08/18/20 14:15) FLUID RETENTION-WT GAIN clavulanic acid Allergy (Intermediate, Verified 08/18/20 14:15) "SEVERE" DIARRHEA adhesive tape Allergy (Mild, Verified 08/18/20 14:15) Rash fluoxetine Adverse Reaction (Severe, Verified 08/18/20 14:15) HALLUCINATIONS Height/Weight/Isolation Height 5 ft 11 in Weight 124.8 kg Chemistry 08/18/20 08/19/20 11:18 07:20 Sodium 138 142 Potassium 4.3 3.9 Chloride 104 107 Carbon Dioxide 25 29 Anion Gap 9.0 6.0 BUN 22 H 22 H Creatinine 1.38 1.15 Glucose 256 H 119 H Urinalysis 08/18/20 13:13 Urine Color Yellow Urine Appearance Clear Urine pH 6.0 Ur Specific [place] 1.026 Urine Protein Trace H Urine Glucose (UA) 3+ H Urine Ketones 1+ H Urine Blood Negative Urine Nitrite Negative Urine Bilirubin Negative Microbiology 08/18/20 13:41 Blood Aerobic Blood Culture - Preliminary No growth in Aerobic bottle after 24 hours. 08/18/20 13:41 Blood Anaerobic Blood Culture - Preliminary No growth in Anaerobic bottle after 24 hours. 08/18/20 13:46 Blood Aerobic Blood Culture - Preliminary No growth in Aerobic bottle after 24 hours. 08/18/20 13:46 Blood Anaerobic Blood Culture - Preliminary No growth in Anaerobic bottle after 24 hours. Hospital Course (1) Enteritis: This is a 59-year-old male with PMH of type 2 diabetes, diabetic polyneuropathy, chronic bronchitis, nocturnal hypoxemia, chronic diastolic dysfunction, hypertension, NAFLD, CKD 3, chronic pain syndrome, tobacco use and other medical problems listed below who presents from home after panic attack followed by possible syncopal episode and fall onto his knees. Non-toxic appearance, no abd pain, nausea, vomiting or diarrhea Abdominal bloating, leukocytosis of 17 likely related to ongoing steroid use, initial lactate of 4, repeat 2.8 (baseline high 2s) CT abd/pelvis with: * borderline dilated small bowel loops with scattered air-fluid levels and small bowel feces. No discrete transition zones are visualized to indicate high- grade bowel obstruction * findings are nonspecific and diagnostic considerations include low-grade obstruction, ileus/motility disorder, or enteritis. Clinical follow-up recommended DC today on levaquin and flagyl Gastroparesis should be considered as patient is diabetic NM Gastric Emptying Study can't be done for several weeks (2) Knee pain: Fell onto knees, R knee with small abrasion R knee XR -No fractures Continue home oxycodone, Toradol PRN, ice (3) Syncope: Reported syncopal episode with position change in the midst of panic attack History of vasodepressor syncope-diagnosis made via tilt table in 2001, follows with Dr. Greco Event today occurred in setting of acute emotional distress and high heat, no head trauma or recurrence Asymptomatic, monitor on telemetry (4) Atypical chest pain: In setting of panic attack, acid reflux after eating this morning -resolved EKG without acute changes, troponin negative (5) Mucopurulent chronic bronchitis: Follows with pulmonology, currently on prednisone taper 20mg daily Lungs clear on exam, improving with OP regimen Continue home inhalers, nebs (6) Diabetes mellitus, type II: A1c 8.5 in July 2020 Hold home agents SSI while in-patient Glycemic consult placed BSG AC HS (7) Chronic back pain: (8) Narcotic dependence: Continue home oxycodone (9) Atrial fibrillation: Continue diltiazem, toprol (10) Lower extremity edema: Controlled - continue Bumex (11) Mood disorder: Continue SSRI, Wellbutrin, Ativan PRN (12) Tobacco use: Cessation encouraged (13) Sleep apnea: 2L NC O2 HS DC home today ROS-No Headache, No Visual Changes, No Nausea, No Vomiting, No Fever, No Chills, No Neck Pain or Stiffness, No Chest Pain, No Palpitations, No SOB, No VAZQUEZ, No Cough, No Sputum, No Wheezing, No Abdominal Pain, No Diarrhea, No Hematemesis, No Hemoptysis, No Unexpected Weight Loss, No Flank pain, No Melena, No Hematochezia, No Frequency, No Urgency, No Burning, No Hematuria, No Rashes, No Diaphoresis. Appetite is Normal, Feels a little better today Physical Exam Gen-AAO x 3, NAD, Afebrile Head-NCAT, EOMI, PERRLA, Anicteric Sclera, No Posterior Pharyngeal Erythema Neck-Supple, No JVD, No Thyromegaly, No Masses, No LAD, No Bruits Lungs-Clear to Auscultation Bilaterally, No Rales, No Rhonchi, No Wheezing, No Crepitus Chest-No S4, +S1, +S2, No S3, No Murmurs, No Rubs, No Gallops, No Ectopy Abdomen-Soft, Bowel Sounds Present, Non Tender, Distended, No Hepatomegaly, No Splenomegaly, No Palpable Masses, No Rebound, No Rigidity, No Guarding Musculoskeletal-Full Range of Motion Bilaterally, No CVAT Extremities-No Cyanosis, No Clubbing, No Edema Nuero-Cranial Nerves II-XII grossly intact, Motor WNL, DTRs WNL, Strength WNL, Non Focal Psych-Normal Total Time Total Time Spent Total Time Spent (In Minutes): 45 mins Total Time Includes: Examination of the Patient, Discharge Planning, Medication Reconciliation and Communication With Other Providers Discharge Plan Discharge Items Patient Disposition: Home - Self-Care Reason For Visit: NONSPECIFIC ENTERITIS, LACTIC ACIDOSIS, CP Discharge Diagnosis: (1) Enteritis: (2) Knee pain: (3) Syncope: (4) Atypical chest pain: (5) Mucopurulent chronic bronchitis: (6) Diabetes mellitus, type II: (7) Chronic back pain: (8) Narcotic dependence: (9) Atrial fibrillation: (10) Lower extremity edema: (11) Mood disorder: (12) Tobacco use: (13) Sleep apnea: Health Concerns: Compliance Activity: Resume your previous activity Lifting: Gradually increase as tolerated Bathing: No limitations Sexual Activity: When tolerated Exercise/Sports: Gradually increase as tolerated Driving/Machine Use: No limitations Weightbearing: Full weightbearing Non-emergency contact: Primary Care Provider Call non-emergency contact if: you have any medication questions Follow-up/Referrals: Yann Fraga MD [Primary Care Provider] - Diet: Carb Consistent or DM2 and Heart Healthy Addtl Attending Provider Instructions: None Pending Studies at Discharge: No Stand-Alone Forms: My [facility] [employer], Opioid Pain Management, Smoking Cessation Medications and DC Order Prescriptions: New levofloxacin 500 mg tablet 500 mg PO DAILY 10 Days Qty: 10 RF: 0 metronidazole [Flagyl] 500 mg tablet 500 mg PO BID 10 Days Qty: 20 RF: 0 Continued azelastine 137 mcg (0.1 %) aerosol,spray 1 sprays INTNAS BID Qty: 30 RF: 2 epinephrine 0.3 mg/0.3 mL auto-injector 0.3 mg IM Q20M PRN (Reason: anaphylaxis) Qty: 1 RF: 1 sodium chloride [[place] Saline] 0.65 % aerosol,spray 1 spray INTNAS BID PRN (Reason: dry nasal passages) Qty: 30 RF: 5 famotidine [Acid Customer Service Advisor (famotidine)] 20 mg tablet 20 mg PO DAILY 42 Days Qty: 42 RF: 6 cholecalciferol (vitamin D3) 50,000 unit capsule 50,000 unit PO [place] RF: 0 potassium chloride 20 mEq tablet extended release 20 meq PO DAILY Qty: 30 RF: 1 Gammagard Liquid 10 % solution 60 g IV .COMPLEX Qty: 400 RF: 11 diltiazem HCl 240 mg Capsule,Extended Release 24 Hr 240 mg PO QAM RF: 0 tamsulosin 0.4 mg Capsule 0.4 mg PO DAILY RF: 0 bupropion HCl [Wellbutrin SR] 150 mg Tablet Sustained-Release 12 Hr 150 mg PO BID RF: 0 aspirin [Aspirin Low Dose] 81 mg Tablet,Delayed Release (Dr/Ec) 81 mg PO QAM RF: 0 metformin 1,000 mg Tablet 1,000 mg PO BIDM RF: 0 lisinopril 10 mg Tablet 10 mg PO QAM RF: 0 fluticasone propionate [Flonase Allergy Relief] 50 mcg/actuation [place],Suspension 2 spray INTRANASAL BID RF: 0 glipizide 5 mg Tablet 5 mg PO QAM RF: 0 albuterol sulfate [Ventolin HFA] 90 mcg/actuation Hfa Aerosol Inhaler 2 puff INHALATION Q6H PRN (Reason: Shortness Of Breath Or Wheezing) RF: 0 gabapentin 800 mg tablet 800 mg PO QID RF: 0 cyanocobalamin (vitamin B-12) [Vitamin B-12] 1,000 mcg Tablet, Sublingual 1,000 mcg SUBLINGUAL DAILY RF: 0 insulin aspart U-100 [Novolog Flexpen U-100 Insulin] 100 unit/mL (3 mL) Insulin Pen 30 - 35 unit SUBCUT TIDM RF: 0 Lantus Solostar U-100 Insulin 100 unit/mL (3 mL) Insulin Pen 60 unit SUBCUT BID RF: 0 Trulicity 3 mg/0.5 mL pen injector 3 mg SUBCUT WK RF: 0 loperamide 2 mg capsule 2 mg PO BID RF: 0 carbamazepine 200 mg tablet 200 mg PO BID RF: 0 bumetanide 1 mg tablet 1 mg PO TID RF: 0 metoprolol succinate 25 mg tablet extended release 24 hr 37.5 mg PO DAILY RF: 0 rosuvastatin 40 mg tablet 40 mg PO DAILY RF: 0 albuterol sulfate 2.5 mg /3 mL (0.083 %) solution for nebulization 2.5 mg inhalation Q6H PRN (Reason: Shortness Of Breath) RF: 0 diclofenac sodium 75 mg tablet,delayed release (DR/EC) 75 mg PO BID RF: 0 escitalopram oxalate 10 mg tablet 10 mg PO DAILY RF: 0 prednisone 10 mg tablet 20 mg PO DAILY RF: 0 naloxone 4 mg/actuation [place],Non-Aerosol 4 mg INTRANASAL UD RF: 0 Trelegy Ellipta 100-62.5-25 mcg Blister With Device 1 inh INHALATION DAILY RF: 0 lorazepam 0.5 mg tablet 0.5 mg PO BID PRN (Reason: Anxiety) RF: 0 oxycodone 10 mg Tablet 10 mg PO Q6H PRN (Reason: Pain) RF: 0 nystatin 100,000 unit/mL suspension 2 ml PO QID PRN (Reason: infection) RF: 0 sodium chloride 7 % solution for nebulization 4 ml inhalation BID PRN (Reason: Shortness Of Breath) RF: 0 ipratropium bromide 42 mcg (0.06 %) spray,non-aerosol 2 spray intranasal DAILY PRN (Reason: Nasal Congestion) RF: 0 Discharge Orders: Discharge Order (Routine); Ordered 08/20/20 Ordered By: Kelby Moses Admission Data Admit Date/Time: 08/18/20 15:39 Attending Provider: Kelby Moses Admit Provider: Kelby Moses Primary Care Provider: Yann Fraga Other Providers: Kelby Moses
[2020-08-20] MEDS: BUMETANIDE 1 MG TAB PO SCH (07:43)
[2020-08-20] MEDS: ROSUVASTATIN CALCIUM 20 MG TAB PO SCH (07:43)
[2020-08-20] MEDS: GABAPENTIN 800 MG TAB PO SCH (07:43)
[2020-08-20] MEDS: buPROPion SR 150 MG TABCR PO SCH (07:43)
[2020-08-20] MEDS: carBAMazepine 200 MG TABLET PO SCH (07:43)
[2020-08-20] MEDS: FAMOTIDINE 20 MG TAB PO SCH (07:43)
[2020-08-20] MEDS: predniSONE 20 MG TAB PO SCH (07:44)
[2020-08-20] MEDS: CYANOCOBALAMIN 500 MCG TABLET (VITAMIN B-12) PO SCH (07:44)
[2020-08-20] MEDS: ESCITALOPRAM OXALATE 10 MG TAB PO SCH (07:44)
[2020-08-20] MEDS: POTASSIUM CHLORIDE CRTAB 20 MEQ TABCR PO SCH (07:44)
[2020-08-20] MEDS: ASPIRIN 81 MG ECTAB PO SCH (07:45)
[2020-08-20] MEDS: METOPROLOL SUCC 25MG EXT REL TAB PO SCH (07:45)
[2020-08-20] MEDS: dilTIAZem HCL 240 MG CAPCR PO SCH (07:46)
[2020-08-20] MEDS: LOPERAMIDE HCL 2 MG CAP PO SCH (07:46)
[2020-08-20] MEDS: TAMSULOSIN HCL 0.4 MG CAP PO SCH (07:47)
[2020-08-20 07:49] LABS: BUN Creatinine Ratio 16.4 (10-20); Calcium 8.3 mg/dl (8.5-10.1); Est GFR (African American) 75.2 ml/min; Est GFR (Non-African American) 64.9 ml/min; Potassium 3.8 mmol/L (3.5-5.1)
[2020-08-20] MEDS: INSULIN ASPART 100 UNITS/ML 3 ML PEN SC SCH ×2 (08:36→11:55)
[2020-08-20] MEDS: INSULIN GLARGINE 100 UNIT/ML VIAL SC SCH (08:37)
[2020-08-20] MEDS: LORazepam 0.5 MG TAB PO PRN ×2 (08:38→08:41)
--- NOTE | 2020-08-20 08:57 | Electrocardiogram Report ---
Test Reason : Blood Pressure : / mmHG Vent. Rate : 090 BPM Atrial Rate : 090 BPM P-R Int : 140 ms QRS Dur : 074 ms QT Int : 366 ms P-R-T Axes : 038 051 043 degrees QTc Int : 447 ms Normal sinus rhythm Normal ECG When compared with ECG of 06-AUG-2020 16:28, Nonspecific T wave abnormality no longer evident in Inferior leads T wave inversion no longer evident in Lateral leads Confirmed by Ziyad Alves ([id number]) on 08/20/2020 8:57:16 AM Referred By: REFERRED SELF Confirmed By:Ziyad Alves
[2020-08-20] MEDS ORDERED: PROPRANOLOL HCL 10 MG TAB PO SCH (09:00)
--- NOTE | 2020-08-20 11:36 | Electrocardiogram Report ---
Test Reason : Blood Pressure : / mmHG Vent. Rate : 087 BPM Atrial Rate : 087 BPM P-R Int : 140 ms QRS Dur : 082 ms QT Int : 388 ms P-R-T Axes : 009 035 053 degrees QTc Int : 466 ms Normal sinus rhythm Normal ECG When compared with ECG of 18-AUG-2020 10:44, (unconfirmed) No significant change was found Confirmed by Ziyad Alves ([id number]) on 08/20/2020 11:36:18 AM Referred By: REFERRED SELF Confirmed By:Ziyad Alves
[2020-08-23] MEDS ORDERED: ERGOCALCIFEROL 50,000 UNITS 1250 MCG CAP PO SCH (09:00)
== END 2020-08-20 12:14 | disposition home or self-care (01) ==
LOC: ED 10:37 → INTOOBSV 15:39 → 2N 15:39

== ENCOUNTER 2020-09-28 09:21 | Observation (INO) ==
--- NOTE | 2020-09-28 10:28 | Emergency Department Note ---
History of Present Illness General Chief complaint: Anxiety Time Seen by Provider: 09/28/20 10:08 Source: patient and family Mode of arrival: ambulatory Limitations: no limitations History of Present Illness Maximum Pain Intensity: 8 This patient comes in complaining of leg pain and weakness bilaterally and anxiety. He has been having chronic problems with his legs with both neuropathy and fluid that has gotten worse lately. He feels like he has gained fluid in his abdomen as well. He is on Bumex 1 mg 3 times a day no recent change in medicine except for he added finasteride for urinary symptoms. He was at a family reunion and felt like his legs were weak yesterday. Today his legs continue to bother him and he said it caused him to going to panic attack. He is has issues with GERD and says that he feels acid when he lays flat in his chest but besides that no chest pain or shortness of breath. He does not weigh himself so is not sure how much weight he gained. No fever or chills. No injuries. Home Medications Medication Instructions Recorded Confirmed Type albuterol sulfate 90 mcg/actuation 2 puff INHALATION Q6H PRN 03/15/18 09/28/20 History aerosol inhaler (Ventolin HFA) aspirin 81 mg tablet,delayed 81 mg PO QAM 03/15/18 09/28/20 History release (Aspirin Low Dose) bupropion HCl 150 mg tablet,12 hr 150 mg PO BID 03/15/18 09/28/20 History sustained-release (Wellbutrin SR) fluticasone propionate 50 2 spray INTRANASAL BID 03/15/18 09/28/20 History mcg/actuation nasal spray,suspension (Flonase Allergy Relief) diltiazem HCl 240 mg capsule,24 240 mg PO QAM 06/12/18 09/28/20 History hr,extended release tamsulosin 0.4 mg capsule 0.4 mg PO DAILY 12/10/18 09/28/20 History azelastine 137 mcg (0.1 %) nasal 1 sprays INTNAS BID #30 ml 07/25/19 09/28/20 Rx spray aerosol epinephrine 0.3 mg/0.3 mL 0.3 mg IM Q20M PRN #1 ea 08/21/19 09/28/20 Rx injection, auto-injector sodium chloride 0.65 % nasal spray 1 spray INTNAS BID PRN #30 ml 11/27/19 09/28/20 Rx aerosol ([place] Saline) famotidine 20 mg tablet (Acid 20 mg PO DAILY 42 Days #42 tab 04/27/20 09/28/20 Rx Online Advertising Analyst (famotidine)) ipratropium bromide 42 mcg (0.06 2 spray INTRANASAL DAILY PRN 05/02/20 09/28/20 History %) nasal spray lorazepam 0.5 mg tablet 0.5 mg PO BID PRN 05/02/20 09/28/20 History oxycodone 10 mg tablet 10 mg PO Q6H PRN 05/02/20 09/28/20 History sodium chloride 7 % for 4 ml INHALATION BID PRN 05/02/20 09/28/20 History nebulization cyanocobalamin (vitamin B-12) 1,000 mcg SUBLINGUAL DAILY 08/06/20 09/28/20 History 1,000 mcg sublingual tablet dulaglutide 3 mg/0.5 mL 3 mg SUBCUT TH 08/06/20 09/28/20 History subcutaneous pen injector (Trulicity) insulin glargine 100 unit/mL (3 60 unit SUBCUT DAILY 08/06/20 09/28/20 History mL) subcutaneous pen (Lantus Solostar U-100 Insulin) albuterol sulfate 2.5 mg INHALATION Q6H PRN 08/18/20 09/28/20 History bumetanide 1 mg tablet 1 mg PO TID 08/18/20 09/28/20 History carbamazepine 200 mg tablet 200 mg PO BID 08/18/20 09/28/20 History loperamide 2 mg capsule 2 mg PO BID PRN 08/18/20 09/28/20 History metoprolol succinate 25 mg 37.5 mg PO DAILY 08/18/20 09/28/20 History tablet,extended release 24 hr naloxone 4 mg/actuation nasal spray 4 mg INTRANASAL UD 08/18/20 09/28/20 History prednisone 10 mg tablet 10 mg PO DAILY PRN 08/18/20 09/28/20 History rosuvastatin 40 mg tablet 40 mg PO DAILY 08/18/20 09/28/20 History propranolol 10 mg tablet 10 mg PO TID #30 tab 08/20/20 09/28/20 Rx duloxetine 60 mg capsule,delayed 60 mg PO DAILY 09/28/20 09/28/20 History release ergocalciferol (vitamin D2) 50,000 50,000 unit PO WK 09/28/20 09/28/20 History unit tablet escitalopram oxalate 20 mg tablet 20 mg PO DAILY 09/28/20 09/28/20 History finasteride 5 mg tablet 5 mg PO QDD 09/28/20 09/28/20 History fluticasone furoate 200 1 inh INHALATION DAILY 09/28/20 09/28/20 History mcg-vilanterol 25 mcg/dose inhalation powder (Breo Ellipta) gabapentin 600 mg tablet 600 mg PO TID 09/28/20 09/28/20 History insulin lispro 100 unit/mL 35 - 40 unit SUBCUT QID 09/28/20 09/28/20 History subcutaneous solution methocarbamol 750 mg tablet 750 mg PO BID 09/28/20 09/28/20 History omeprazole 40 mg capsule,delayed 40 mg PO DAILY 09/28/20 09/28/20 History release potassium chloride 20 mEq 20 meq PO BID 09/28/20 09/28/20 History tablet,extended release Allergies Allergy/AdvReac Type Severity Reaction Status Date / Time atenolol Allergy Severe DEPRESSION/ Verified 09/28/20 11:22 SUICIDAL amoxicillin Allergy Intermediate "SEVERE" Verified 09/28/20 11:22 DIARRHEA celecoxib Allergy Intermediate FLUID Verified 09/28/20 11:22 RETENTION-WT GAIN clavulanic acid Allergy Intermediate "SEVERE" Verified 09/28/20 11:22 DIARRHEA adhesive tape Allergy Mild Rash Verified 09/28/20 11:22 fluoxetine AdvReac Severe HALLUCINATI Verified 09/28/20 11:22 ONS Past Med/Surg History Medical History (Updated 09/28/20 @ 18:17 by Speedy Nur MD) Anxiety Benign hypertension Benign prostatic hyperplasia with urinary obstruction BPH (benign prostatic hyperplasia) Cervical disc disorder Chronic bronchitis Chronic neck pain Chronic pain syndrome Chronic rhinitis Chronic sinusitis, unspecified CKD (chronic kidney disease), stage III 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 COPD (chronic obstructive pulmonary disease) Costochondritis Depression Diabetes mellitus, type II IDDM Diabetic neuropathy Dizziness Dyslipidemia Elevated diaphragm GERD (gastroesophageal reflux disease) Grade II diastolic dysfunction Hearing deficit RIGHT EAR DEAF Heartburn HLD (hyperlipidemia) HTN (hypertension) Hypervolemia Hypogammaglobulinemia Kidney stones Mood disorder Narcotic dependence Nasal septal deviation Neck pain Normal colonoscopy On anticoagulant therapy ASA 81MG Osteoarthritis Physical deconditioning Pneumonia MAY 2018 Seasonal allergies Sleep apnea 2LPM VIA N/C Steatosis of liver (Unknown) Tachycardia Tingling Tobacco use Ureteral stone Vasodepressor syncope Surgical History History of colonoscopy History of esophagogastroduodenoscopy (EGD) History of lithotripsy S/P PICC central line placement WITH REMOVAL (JUNE 2018) Family History Grandmother Family history of diabetes mellitus Cancer Father Family history of high blood pressure FHx: heart disease Hypertension Sister Asthma Allergies Hypertension Mother Hearing loss Hypertension Uncle Hypertension Other Heart disease No family history of adverse response to anesthesia No family history of bleeding disorder Social History Smoking Status: Never smoker Tobacco Type: Smokeless Tobacco (Dip or Chew) Second Hand Exposure: No; Hx Alcohol Use: No Hx Substance Use: No Preferred Language: Citizen Of [place] Communication Ability: Effective Visual Impairment: Limited It Solutions Architect Required: No Beliefs That Will Affect Care: None marital status: Current Living Situation: Spouse Current Living Situation Comment: Home with spouse current occupational status: unemployed and disabled Feels Safe at Home: Yes Review of Systems A total of 10 systems reviewed and were otherwise negative Physical Exam Vital Signs Vital Signs - 24 hr 09/28/20 09:34 09/28/20 09:55 09/28/20 10:30 Temperature 37.0 C Temperature Source Oral Pulse Rate 122 H 122 H Pulse Rate from SpO2 Sensor 109 H Pulse Rhythm Regular Pulse Strength Normal Respiratory Rate 22 14 22 Blood Pressure 150/97 H Blood Pressure Mean 114 Pulse Oximetry 98 97 95 Oxygen Delivery Method Room Air Room Air Sepsis Recent Fever Within 48 Hours No Sepsis New/Unexplained Change in Mental Status No Sepsis Action Taken by Nursing No Action Required 09/28/20 10:31 09/28/20 11:00 09/28/20 11:30 Temperature Temperature Source Pulse Rate 110 H 102 H 100 H Pulse Rate from SpO2 Sensor 112 H 102 H 101 H Pulse Rhythm Pulse Strength Respiratory Rate 30 H 21 16 Blood Pressure 151/104 H 125/79 116/72 Blood Pressure Mean 119 94 86 Pulse Oximetry 94 96 91 Oxygen Delivery Method Sepsis Recent Fever Within 48 Hours Sepsis New/Unexplained Change in Mental Status Sepsis Action Taken by Nursing 09/28/20 12:00 09/28/20 12:32 09/28/20 12:40 Temperature Temperature Source Pulse Rate 93 H 101 H 104 H Pulse Rate from SpO2 Sensor 96 H 100 H 105 H Pulse Rhythm Pulse Strength Respiratory Rate 13 21 16 Blood Pressure 150/96 H Blood Pressure Mean 114 Pulse Oximetry 90 96 96 Oxygen Delivery Method Sepsis Recent Fever Within 48 Hours Sepsis New/Unexplained Change in Mental Status Sepsis Action Taken by Nursing 09/28/20 13:00 09/28/20 13:30 09/28/20 14:00 Temperature Temperature Source Pulse Rate 99 H 89 88 Pulse Rate from SpO2 Sensor 100 H 89 89 Pulse Rhythm Pulse Strength Respiratory Rate 23 18 18 Blood Pressure 133/90 131/81 125/69 Blood Pressure Mean 104 97 87 Pulse Oximetry 93 93 94 Oxygen Delivery Method Sepsis Recent Fever Within 48 Hours Sepsis New/Unexplained Change in Mental Status Sepsis Action Taken by Nursing 09/28/20 14:30 Temperature Temperature Source Pulse Rate 108 H Pulse Rate from SpO2 Sensor 108 H Pulse Rhythm Pulse Strength Respiratory Rate 19 Blood Pressure 134/83 Blood Pressure Mean 100 Pulse Oximetry 95 Oxygen Delivery Method Sepsis Recent Fever Within 48 Hours Sepsis New/Unexplained Change in Mental Status Sepsis Action Taken by Nursing General: Well developed well nourished older male who appears in no acute distress, breathing comfortably on room air. Normal speech HEENT: Normal cephalic atraumatic. Pupils are equal round and reactive to light. Extraocular movements are intact. Oropharynx is pink with moist mucous membranes. No swelling of the mouth lips or tongue. Neck: Supple with a midline trachea. No meningeal signs or stiffness, no JVD or bruits. No Stridor. Chest: Clear to auscultation bilaterally. No wheezes or rhonchi. No increased work of breathing. Heart: Regular rate and rhythm without murmurs or gallops. Abdomen: Soft nontender.may be distended but without rebound guarding or rigidity. Extremities: No cyanosis clubbing, trace to 1+ bilateral lower extremity edema. No calf tenderness or assymetry Spine/Back. Non tender to palpation. No CVA tenderness Skin: Good turgor without rashes. Neurologic exam: Cranial nerves two through 12 are intact. Motor and sensation are intact and symmetrical throughout. Course Administered Medications Sodium Chloride (Nss 1000ml) 1,000 mls @ 80 mls/hr IV .[id number] TOM Stop: 10/28/20 14:59 Last Admin: 09/28/20 16:30 Dose: 80 mls/hr Documented by: [id number] Discontinued Medications Insulin Human Regular (Novolin-R Insulin Per Unit Charge) 5 units SC NOW STA Stop: 09/28/20 13:23 Last Admin: 09/28/20 13:32 Dose: 5 units Documented by: [id number] Cosigned by: [id number] Morphine Sulfate (Morphine Sulfate 4 Mg/Ml 1 Ml Carp\\Vial) 4 mg IV NOW STA Stop: 09/28/20 12:34 Last Admin: 09/28/20 12:44 Dose: 4 mg Documented by: [id number] Ondansetron HCl (Ondansetron Inj 2 Mg/Ml 2 Ml Vial) 4 mg IV NOW STA Stop: 09/28/20 12:34 Last Admin: 09/28/20 12:44 Dose: 4 mg Documented by: [id number] Medical Decision Making Differential Diagnosis Anxiety, CHF, electrolyte or metabolic abnormality, cardiac disease, acute coronary syndrome, electrolyte or metabolic abnormality, infection Medical Records Attestation: I reviewed the patient's medical records. Home Medications Current Medication List: was personally reviewed by me Laboratory Data Attestation: I reviewed the patient's lab results. Result diagrams: 09/28/20 10:45 09/28/20 10:45 Lab Results 09/28/20 09/28/20 09/28/20 Range/Units 10:17 10:45 10:45 WBC 11.58 H (4.8-10.8) K/uL RBC 4.98 (4.7-6.1) M/uL Hgb 14.2 (14.0-18.0) g/dL Hct 43.1 (42-52) % MCV 86.5 (80-100) fL MCH 28.5 (25-34) pg MCHC 32.9 (32-36) g/dL RDW Std Deviation 44.1 (36.4-46.3) fL RDW Coeff of Leti 13.9 (11.5-14.5) % Plt Count 260 (130-400) K/uL MPV 12.3 H (7.4-10.4) fL Immature Gran % (Auto) 0.3 % Neut % (Auto) 67.7 % Lymph % (Auto) 19.6 % [place] % (Auto) 10.4 % Eos % (Auto) 1.3 % Baso % (Auto) 0.7 % Neut # (Auto) 7.85 H (1.4-6.5) K/uL Lymph # (Auto) 2.27 (1.2-3.4) K/uL [place] # (Auto) 1.20 H (0.11-0.59) K/uL Eos # (Auto) 0.15 (0-0.5) K/uL Baso # (Auto) 0.08 (0-0.2) K/uL Immature Gran # (Auto) 0.03 H (0.00-0.02) K/uL PT Cancelled INR Cancelled APTT Cancelled PTT Ratio Cancelled Sodium (136-145) mmol/L Potassium (3.5-5.1) mmol/L Chloride (98-107) mmol/L Carbon Dioxide (21-32) mmol/L Anion Gap (3-11) BUN (7-18) mg/dl Creatinine (0.6-1.4) mg/dl Est Cr Clr Drug Dosing ml/min Est GFR ( Amer) ml/min Est GFR (Non-Af Amer) ml/min BUN/Creatinine Ratio (10-20) Glucose (70-99) mg/dl POC Glucose 352 H* (70-99) mg/dl Calcium (8.5-10.1) mg/dl Magnesium (1.8-2.4) mg/dl Total Bilirubin (0.2-1) mg/dl AST (15-37) U/L ALT (12-78) U/L Alkaline Phosphatase (45-117) U/L Troponin I (0-0.045) ng/ml NT-Pro-B Natriuret Pep (0-900) pg/ml Total Protein (6.4-8.2) gm/dl Albumin (3.4-5.0) gm/dl Globulin (2.5-4.0) gm/dl Albumin/Globulin Ratio (0.9-2) Lipase (73-393) U/L Beta-Hydroxybutyric Acd (0.2-2.81) mg/dl TSH (0.300-4.500) uIu/ml Specimen Hemolysis COVID-19 Eval Order SARS-CoV-2 (PCR) (Negative) 09/28/20 09/28/20 09/28/20 Range/Units 10:45 11:34 11:39 WBC (4.8-10.8) K/uL RBC (4.7-6.1) M/uL Hgb (14.0-18.0) g/dL Hct (42-52) % MCV (80-100) fL MCH (25-34) pg MCHC (32-36) g/dL RDW Std Deviation (36.4-46.3) fL RDW Coeff of Leti (11.5-14.5) % Plt Count (130-400) K/uL MPV (7.4-10.4) fL Immature Gran % (Auto) % Neut % (Auto) % Lymph % (Auto) % [place] % (Auto) % Eos % (Auto) % Baso % (Auto) % Neut # (Auto) (1.4-6.5) K/uL Lymph # (Auto) (1.2-3.4) K/uL [place] # (Auto) (0.11-0.59) K/uL Eos # (Auto) (0-0.5) K/uL Baso # (Auto) (0-0.2) K/uL Immature Gran # (Auto) (0.00-0.02) K/uL PT 9.8 INR 1.0 APTT 25.3 PTT Ratio 1.0 Sodium 134 L (136-145) mmol/L Potassium 4.3 (3.5-5.1) mmol/L Chloride 102 (98-107) mmol/L Carbon Dioxide 22 (21-32) mmol/L Anion Gap 10.0 (3-11) BUN 15 (7-18) mg/dl Creatinine 1.63 H (0.6-1.4) mg/dl Est Cr Clr Drug Dosing 65.2 ml/min Est GFR ( Amer) 51.9 ml/min Est GFR (Non-Af Amer) 44.8 ml/min BUN/Creatinine Ratio 9.1 L (10-20) Glucose 369 H* (70-99) mg/dl POC Glucose (70-99) mg/dl Calcium 9.1 (8.5-10.1) mg/dl Magnesium 1.9 (1.8-2.4) mg/dl Total Bilirubin 0.6 (0.2-1) mg/dl AST 34 (15-37) U/L ALT 55 (12-78) U/L Alkaline Phosphatase 91 (45-117) U/L Troponin I < 0.015 (0-0.045) ng/ml NT-Pro-B Natriuret Pep 31 (0-900) pg/ml Total Protein 7.0 (6.4-8.2) gm/dl Albumin 3.2 L (3.4-5.0) gm/dl Globulin 3.8 (2.5-4.0) gm/dl Albumin/Globulin Ratio 0.8 L (0.9-2) Lipase 92 (73-393) U/L Beta-Hydroxybutyric Acd (0.2-2.81) mg/dl TSH 0.708 (0.300-4.500) uIu/ml Specimen Hemolysis COVID-19 Eval Order SARS-CoV-2 (PCR) (Negative) 09/28/20 09/28/20 Range/Units 13:35 13:35 WBC (4.8-10.8) K/uL RBC (4.7-6.1) M/uL Hgb (14.0-18.0) g/dL Hct (42-52) % MCV (80-100) fL MCH (25-34) pg MCHC (32-36) g/dL RDW Std Deviation (36.4-46.3) fL RDW Coeff of Leti (11.5-14.5) % Plt Count (130-400) K/uL MPV (7.4-10.4) fL Immature Gran % (Auto) % Neut % (Auto) % Lymph % (Auto) % [place] % (Auto) % Eos % (Auto) % Baso % (Auto) % Neut # (Auto) (1.4-6.5) K/uL Lymph # (Auto) (1.2-3.4) K/uL [place] # (Auto) (0.11-0.59) K/uL Eos # (Auto) (0-0.5) K/uL Baso # (Auto) (0-0.2) K/uL Immature Gran # (Auto) (0.00-0.02) K/uL PT INR APTT PTT Ratio Sodium (136-145) mmol/L Potassium (3.5-5.1) mmol/L Chloride (98-107) mmol/L Carbon Dioxide (21-32) mmol/L Anion Gap (3-11) BUN (7-18) mg/dl Creatinine (0.6-1.4) mg/dl Est Cr Clr Drug Dosing ml/min Est GFR ( Amer) ml/min Est GFR (Non-Af Amer) ml/min BUN/Creatinine Ratio (10-20) Glucose (70-99) mg/dl POC Glucose (70-99) mg/dl Calcium (8.5-10.1) mg/dl Magnesium (1.8-2.4) mg/dl Total Bilirubin (0.2-1) mg/dl AST (15-37) U/L ALT (12-78) U/L Alkaline Phosphatase (45-117) U/L Troponin I (0-0.045) ng/ml NT-Pro-B Natriuret Pep (0-900) pg/ml Total Protein (6.4-8.2) gm/dl Albumin (3.4-5.0) gm/dl Globulin (2.5-4.0) gm/dl Albumin/Globulin Ratio (0.9-2) Lipase (73-393) U/L Beta-Hydroxybutyric Acd (0.2-2.81) mg/dl TSH (0.300-4.500) uIu/ml Specimen Hemolysis COVID-19 Eval Order Covid19 at [facility] SARS-CoV-2 (PCR) NEGATIVE (Negative) Imaging Data Attestation: I personally reviewed and interpreted this imaging study as follows: My Impression: Chest x-raycardiomegaly without acute CHF seen Radiologist's Impression: Chest X-Ray 09/28/20 10:22 XR chest 1V portable HISTORY: 59 years-old Male Chest Pain acute atypical chest pain with shortness of breath COMPARISON: Chest radiograph 08/18/2020, CTA chest 08/06/2020 TECHNIQUE: Portable AP view of the chest FINDINGS: Cardiac silhouette is enlarged. Chronic right hemidiaphragmatic elevation. No pneumothorax, pleural effusion, airspace consolidation or overt pulmonary edema. Degenerative changes of the shoulders and spine. IMPRESSION: 1. Cardiomegaly without acute process. 2. Chronic right hemidiaphragmatic elevation. ACT 112: Negative or not required by law. The above report was generated using voice recognition software. It may contain grammatical, syntax or spelling errors. Electronically signed by: Skyler Whittaker M.D. 09/28/2020 10:[address] 09/28/20 14:53 CT lumbar spine wo con HISTORY: 59 years-old Male leg weakness, back pain acute back pain with lower extremity weakness COMPARISON: CT abdomen and pelvis 08/18/2020 TECHNIQUE: Multiple axial CT images of the lumbar spine were obtained without the use of IV contrast. A dose lowering technique was used consistent with the principals of ALARA. FINDINGS: No acute fracture, subluxation or endplate erosion. Moderate multilevel facet arthrosis with associated moderate anterior endplate osteophytic spurring. Mild degeneration of the SI joints. No sacral fracture or erosion identified. No spondylolysis or spondylolisthesis. Atherosclerosis of the aorta without aneurysm. Urinary bladder distention. No paravertebral edema. Evaluation of the central canal and neuroforamina is better assessed by MRI. T12-L1: No central canal or neural foraminal narrowing. L1-L2: No central canal or neural foraminal narrowing. L2-L3: Small posterior annular disc bulge flattens the ventral thecal sac. No significant central canal or neural foraminal narrowing. L3-L4: No central canal or neural foraminal narrowing. L4-L5: Tiny posterior annular disc bulge results in mild bilateral neural forami nal stenosis. The central canal is patent. L5-S1: Mild intervertebral disc space narrowing. No central canal or neural foraminal narrowing. IMPRESSION: 1. No acute fracture or subluxation. 2. Facet arthrosis with spondylitic spurring as above. No significant central canal or neural foraminal narrowing. 3. Small posterior annular disc bulge at L2-L3. ACT 112: Negative or not required by law. The above report was generated using voice recognition software. It may contain grammatical, syntax or spelling errors. Electronically signed by: Skyler Whittaker M.D. 09/28/2020 4:54 PM ECG Data Attestation: I personally reviewed and interpreted this ECG as follows: Indication: + weakness Rate (beats per minute): 103 Rhythm: + sinus tachycardia ECG Intervals/blocks: + Normal QRS, + Normal QT and + Normal SC ECG [place]: + Normal ECG ST segments: + Normal ST segments ECG Findings: no PACs or no PVCs Comparison ECG Date: from (08/19/20) Change: no significant change MDM Narrative This patient comes in as described above. He was placed on a quality assurance monitor body in room C 12. He is here for treatment and evaluation of leg pain and swelling as well as anxiety. IV access was establishedand his blood sugar was checked in the 300s. EKG, chest x-ray obtained. Multiple blood test was obtained. His blood sugar was elevated in 300s. He was given insulin subcu 5 units. He does not appear to be in DKA. Besides this he has no acute other acute electrolyte or metabolic abnormalities. His creatinine is elevated compared to baseline. C ovid testing was negative. He was given IV morphine and IV Zofran for pain management. He continues to complain of leg pain bilaterally that may cause and be anxious. Additionally his blood sugar is high. He does not feel he can safely go home. [facility] and evaluation. Continuous cardiac monitoring: Orders placed in the EMR for continuous cardiac monitoring. Upon my interpretation the patient was found to sinus tachycardia with a rate of 100 Impression & Plan Weakness, Hyperglycemia, Bilateral leg pain, Lab test negative for COVID-19 virus Discharge Plan Visit Data Chief Complaint: Anxiety ED Provider: Speedy Nur Discharge Problem: Weakness, Hyperglycemia, Bilateral leg pain, Lab test negative for COVID-19 virus Forms Stand Alone Forms: My [facility], Suicide Prevention Resources Prescriptions Prescriptions: No Action azelastine 137 mcg (0.1 %) aerosol,spray 1 sprays INTNAS BID Qty: 30 RF: 2 epinephrine 0.3 mg/0.3 mL auto-injector 0.3 mg IM Q20M PRN (Reason: anaphylaxis) Qty: 1 RF: 1 sodium chloride [[place] Saline] 0.65 % aerosol,spray 1 spray INTNAS BID PRN (Reason: dry nasal passages) Qty: 30 RF: 5 famotidine [Acid Online Advertising Analyst (famotidine)] 20 mg tablet 20 mg PO DAILY 42 Days Qty: 42 RF: 6 diltiazem HCl 240 mg Capsule,Extended Release 24 Hr 240 mg PO QAM RF: 0 tamsulosin 0.4 mg Capsule 0.4 mg PO DAILY RF: 0 bupropion HCl [Wellbutrin SR] 150 mg Tablet Sustained-Release 12 Hr 150 mg PO BID RF: 0 aspirin [Aspirin Low Dose] 81 mg Tablet,Delayed Release (Dr/Ec) 81 mg PO QAM RF: 0 fluticasone propionate [Flonase Allergy Relief] 50 mcg/actuation [place],Suspension 2 spray INTRANASAL BID RF: 0 albuterol sulfate [Ventolin HFA] 90 mcg/actuation Hfa Aerosol Inhaler 2 puff INHALATION Q6H PRN (Reason: Shortness Of Breath Or Wheezing) RF: 0 cyanocobalamin (vitamin B-12) 1,000 mcg Tablet, Sublingual 1,000 mcg SUBLINGUAL DAILY RF: 0 Lantus Solostar U-100 Insulin 100 unit/mL (3 mL) Insulin Pen 60 unit SUBCUT DAILY RF: 0 Trulicity 3 mg/0.5 mL pen injector 3 mg SUBCUT TH RF: 0 loperamide 2 mg capsule 2 mg PO BID PRN (Reason: Diarrhea) RF: 0 carbamazepine 200 mg tablet 200 mg PO BID RF: 0 bumetanide 1 mg tablet 1 mg PO TID RF: 0 metoprolol succinate 25 mg tablet extended release 24 hr 37.5 mg PO DAILY RF: 0 rosuvastatin 40 mg tablet 40 mg PO DAILY RF: 0 albuterol sulfate 2.5 mg /3 mL (0.083 %) solution for nebulization 2.5 mg inhalation Q6H PRN (Reason: Shortness Of Breath) RF: 0 prednisone 10 mg tablet 10 mg PO DAILY PRN (Reason: Shortness Of Breath) RF: 0 naloxone 4 mg/actuation [place],Non-Aerosol 4 mg INTRANASAL UD RF: 0 propranolol 10 mg Tablet 10 mg PO TID Qty: 30 RF: 0 lorazepam 0.5 mg tablet 0.5 mg PO BID PRN (Reason: Anxiety) RF: 0 oxycodone 10 mg Tablet 10 mg PO Q6H PRN (Reason: Pain) RF: 0 sodium chloride 7 % solution for nebulization 4 ml inhalation BID PRN (Reason: Shortness Of Breath) RF: 0 ipratropium bromide 42 mcg (0.06 %) spray,non-aerosol 2 spray intranasal DAILY PRN (Reason: Nasal Congestion) RF: 0 omeprazole 40 mg capsule,delayed release(DR/EC) 40 mg PO DAILY RF: 0 methocarbamol 750 mg Tablet 750 mg PO BID RF: 0 insulin lispro 100 unit/mL Solution 35 - 40 unit SUBCUT QID RF: 0 finasteride 5 mg tablet 5 mg PO QDD RF: 0 duloxetine 60 mg Capsule,Delayed Release(Dr/Ec) 60 mg PO DAILY RF: 0 Breo Ellipta 200-25 mcg/dose Blister With Device 1 inh INHALATION DAILY RF: 0 gabapentin 600 mg tablet 600 mg PO TID RF: 0 ergocalciferol (vitamin D2) 50,000 unit Tablet 50,000 unit PO WK RF: 0 escitalopram oxalate 20 mg tablet 20 mg PO DAILY RF: 0 potassium chloride 20 mEq tablet extended release 20 meq PO BID RF: 0 Referrals Referrals: Yann Fraga MD [Primary Care Provider] -
--- NOTE | 2020-09-28 10:43 | XRay Report ---
XR chest 1V portable HISTORY: 59 years-old Male Chest Pain acute atypical chest pain with shortness of breath COMPARISON: Chest radiograph 08/18/2020, CTA chest 08/06/2020 TECHNIQUE: Portable AP view of the chest FINDINGS: Cardiac silhouette is enlarged. Chronic right hemidiaphragmatic elevation. No pneumothorax, pleural e ffusion, airspace consolidation or overt pulmonary edema. Degenerative changes of the shoulders and s pine. IMPRESSION: 1. Cardiomegaly without acute process. 2. Chronic right hemidiaphragmatic elevation. ACT 112: Negative or not required by law. The above report was generated using voice recognition software. It may contain grammatical, syntax o r spelling errors. Electronically signed by: Skyler Whittaker M.D. 09/28/2020 10:42 AM
[2020-09-28 11:01] LABS: Basophils # (auto) 0.08 K/uL (0-0.2); Basophils % (auto) 0.7 %; Eosinophils # (auto) 0.15 K/uL (0-0.5); Eosinophils % (auto) 1.3 %; Hematocrit (blood only) 43.1 % (42-52); Hemoglobin 14.2 g/dL (14.0-18.0); Immature Granulocytes # (auto) 0.03 K/uL (0.00-0.02); Immature Granulocytes % (auto) 0.3 %; Lymphocytes # (auto) 2.27 K/uL (1.2-3.4); Lymphocytes % (auto) 19.6 %; Mean Corpuscular Hemoglobin 28.5 pg (25-34); Mean Corpuscular Hgb Conc 32.9 g/dL (32-36); Mean Corpuscular Volume 86.5 fL (80-100); Mean Platelet Volume 12.3 fL (7.4-10.4); Monocytes % (auto) 10.4 %; Neutrophils # (auto) 7.85 K/uL (1.4-6.5); Neutrophils % (auto) 67.7 %; Platelet Count 260 K/uL (130-400); RDW Coefficient of Variation 13.9 % (11.5-14.5); RDW Standard Deviation 44.1 fL (36.4-46.3); Red Blood Count 4.98 M/uL (4.7-6.1); White Blood Count 11.58 K/uL (4.8-10.8)
[2020-09-28 11:39] LABS: Alanine Aminotransferase 55 U/L (12-78); Albumin Globulin Ratio 0.8 (0.9-2); Albumin Level 3.2 gm/dl (3.4-5.0); Alkaline Phosphatase 91 U/L (45-117); Aspartate Aminotransferase 34 U/L (15-37); BUN Creatinine Ratio 9.1 (10-20); Bilirubin,Total 0.6 mg/dl (0.2-1); Blood Urea Nitrogen 15 mg/dl (7-18); Calcium 9.1 mg/dl (8.5-10.1); Carbon Dioxide 22 mmol/L (21-32); Chloride 102 mmol/L (98-107); Creatinine Clr Calc Pharmacy 65.2 ml/min; Est GFR (African American) 51.9 ml/min; Est GFR (Non-African American) 44.8 ml/min; Globulin 3.8 gm/dl (2.5-4.0); Glucose 369 mg/dl (70-99); Lipase 92 U/L (73-393); NT Pro B Type Natriuretic Pept 31 pg/ml (0-900); Potassium 4.3 mmol/L (3.5-5.1); Sodium 134 mmol/L (136-145); Thyroid Stimulating Hormone 0.708 uIu/ml (0.300-4.500); Troponin I < 0.015 ng/ml (0-0.045)
[2020-09-28 11:58] LABS: Partial Thromboplastin Time 25.3 Seconds (21.0-31.0); Prothrombin Time 9.8 Seconds (9.0-12.0)
[2020-09-28] MEDS ORDERED: ONDANSETRON INJ 2 MG/ML 2 ML VIAL IV STA (12:33)
[2020-09-28] MEDS ORDERED: MoRPHine SULFATE 4 MG/ML 1 ML CARP\\VIAL IV STA (12:33)
[2020-09-28] MEDS ORDERED: NovoLIN-R INSULIN PER UNIT CHARGE SC STA (13:22)
[2020-09-28] MEDS ORDERED: PHARMACY GLYCEMIC MGMT CONSULT PRN ×2 (16:18→19:24)
[2020-09-28] MEDS: SODIUM CHLORIDE 0.9% 1000ML 1,000 ML IV SCH (16:30)
--- NOTE | 2020-09-28 16:35 | History & Physical Report ---
Date of Service September 28, 2020 Assessment & Plan (1) Weakness: Plan: -admit to med/surg -patient presenting from home with reports of lower extremity weakness, frequent falls -given reports of R>L leg weakness/numbness/tingling, will obtain lumbar spine CT to eval for stenosis (patient reports he cannot tolerate MRI), no red flag symptoms present -symptoms may also be multifactorial due to dehydration from persistent hyperglycemia and/or diabetic neuropathy -PT/OT (2) Hyperglycemia: (3) Diabetes mellitus, type II: Plan: -hgb a1c 8.5 07/2020 -patient reports blood sugars running in the 300s at home - has been attempting to contact [facility] diabetic pharmacy however reports communication issues -glucose 369, no signs of DKA -given 5 units insulin in ED -glycemic pharmacy consult (4) CKD (chronic kidney disease), stage III: Plan: -baseline creat runs in the low 1's -creat 1.6 today -likely due to mild dehydration from hyperglycemia -hold Bumex, give gentle IVF -follow renal functions (5) Hypervolemia: Plan: -chronic issue, multifactorial due to inactivity, venous stasis, medications -typically managed with Bumex -may be a little on the dry side today, holding Bumex as above -monitor volume status closely (6) Tachycardia: Plan: -hx of, chronic -rate controlled on diltiazem and metoprolol (7) Hypogammaglobulinemia: Plan: -follows with allergy -receives IgG replacement (8) HTN (hypertension): Plan: -BP controlled, continue metoprolol and diltiazem (9) Chronic pain syndrome: Plan: -continue home meds (10) COPD (chronic obstructive pulmonary disease): Plan: -stable, no signs of acute exacerbation -continue home inhalers (11) Mood disorder: Plan: -continue home meds (12) DVT prophylaxis: Plan: -SQ heparin History of Present Illness Chief Complaint: Weakness Primary Care Provider: Yann Fraga MD 59 year old male with PMH DM type II, chronic hypervolemia, chronic bronchitis, COPD, hypogammaglobulinemia, HTN, tachycardia, CKD stage III, chronic pain, mood disorder, and other problems listed below who presents to the ED for evaluation of lower extremity weakness. Patient reports ongoing BL leg weakness for 3-4 weeks. Patient has diabetic neuropathy and reports gabapentin has been reduced due to fluid retention issues. He feels as though his leg weakness and numbness/tingling has been worse since. He states that the right leg feels more weak than the left and only the right leg has numbness and tingling. He reports both legs feel swollen and that the skin is being pulled tight. He has been having lightheadedness and dizziness however no syncopal events. Reports multiple mechanical falls. Blood sugars have been running in the 300s, patient reports communication issued with [facility] diabetic pharmacy and rn diabetes educator. Patient states he has chronic exertional shortness of breath which is unchanged from baseline. No chest pain. Denies abdominal pain, nausea, vomiting, and diarrhea. No fevers or chills. Denies urinary symptoms. In the ED, labs show creat 1.6 (mildly increased from baseline), glucose 369. VSS. Patient was given insulin 5 units IV, IV morphine 4mg, IV zofran. Allergies Allergy/AdvReac Type Severity Reaction Status Date / Time atenolol Allergy Severe DEPRESSION/ Verified 09/28/20 11:22 SUICIDAL amoxicillin Allergy Intermediate "SEVERE" Verified 09/28/20 11:22 DIARRHEA celecoxib Allergy Intermediate FLUID Verified 09/28/20 11:22 RETENTION-WT GAIN clavulanic acid Allergy Intermediate "SEVERE" Verified 09/28/20 11:22 DIARRHEA adhesive tape Allergy Mild Rash Verified 09/28/20 11:22 fluoxetine AdvReac Severe HALLUCINATI Verified 09/28/20 11:22 ONS Home Medications Medication Instructions Recorded Confirmed Type albuterol sulfate 90 mcg/actuation 2 puff INHALATION Q6H PRN 03/15/18 09/28/20 History aerosol inhaler (Ventolin HFA) aspirin 81 mg tablet,delayed 81 mg PO QAM 03/15/18 09/28/20 History release (Aspirin Low Dose) bupropion HCl 150 mg tablet,12 hr 150 mg PO BID 03/15/18 09/28/20 History sustained-release (Wellbutrin SR) fluticasone propionate 50 2 spray INTRANASAL BID 03/15/18 09/28/20 History mcg/actuation nasal spray,suspension (Flonase Allergy Relief) diltiazem HCl 240 mg capsule,24 240 mg PO QAM 06/12/18 09/28/20 History hr,extended release tamsulosin 0.4 mg capsule 0.4 mg PO DAILY 12/10/18 09/28/20 History azelastine 137 mcg (0.1 %) nasal 1 sprays INTNAS BID #30 ml 07/25/19 09/28/20 Rx spray aerosol epinephrine 0.3 mg/0.3 mL 0.3 mg IM Q20M PRN #1 ea 08/21/19 09/28/20 Rx injection, auto-injector sodium chloride 0.65 % nasal spray 1 spray INTNAS BID PRN #30 ml 11/27/19 09/28/20 Rx aerosol (Menan Saline) famotidine 20 mg tablet (Acid 20 mg PO DAILY 42 Days #42 tab 04/27/20 09/28/20 Rx [employer] (famotidine)) ipratropium bromide 42 mcg (0.06 2 spray INTRANASAL DAILY PRN 05/02/20 09/28/20 History %) nasal spray lorazepam 0.5 mg tablet 0.5 mg PO BID PRN 05/02/20 09/28/20 History oxycodone 10 mg tablet 10 mg PO Q6H PRN 05/02/20 09/28/20 History sodium chloride 7 % for 4 ml INHALATION BID PRN 05/02/20 09/28/20 History nebulization cyanocobalamin (vitamin B-12) 1,000 mcg SUBLINGUAL DAILY 08/06/20 09/28/20 History 1,000 mcg sublingual tablet dulaglutide 3 mg/0.5 mL 3 mg SUBCUT TH 08/06/20 09/28/20 History subcutaneous pen injector (Trulicity) insulin glargine 100 unit/mL (3 60 unit SUBCUT DAILY 08/06/20 09/28/20 History mL) subcutaneous pen (Lantus Solostar U-100 Insulin) albuterol sulfate 2.5 mg INHALATION Q6H PRN 08/18/20 09/28/20 History bumetanide 1 mg tablet 1 mg PO TID 08/18/20 09/28/20 History carbamazepine 200 mg tablet 200 mg PO BID 08/18/20 09/28/20 History loperamide 2 mg capsule 2 mg PO BID PRN 08/18/20 09/28/20 History metoprolol succinate 25 mg 37.5 mg PO DAILY 08/18/20 09/28/20 History tablet,extended release 24 hr naloxone 4 mg/actuation nasal spray 4 mg INTRANASAL UD 08/18/20 09/28/20 History prednisone 10 mg tablet 10 mg PO DAILY PRN 08/18/20 09/28/20 History rosuvastatin 40 mg tablet 40 mg PO DAILY 08/18/20 09/28/20 History propranolol 10 mg tablet 10 mg PO TID #30 tab 08/20/20 09/28/20 Rx duloxetine 60 mg capsule,delayed 60 mg PO DAILY 09/28/20 09/28/20 History release ergocalciferol (vitamin D2) 50,000 50,000 unit PO WK 09/28/20 09/28/20 History unit tablet escitalopram oxalate 20 mg tablet 20 mg PO DAILY 09/28/20 09/28/20 History finasteride 5 mg tablet 5 mg PO QDD 09/28/20 09/28/20 History fluticasone furoate 200 1 inh INHALATION DAILY 09/28/20 09/28/20 History mcg-vilanterol 25 mcg/dose inhalation powder (Breo Ellipta) gabapentin 600 mg tablet 600 mg PO TID 09/28/20 09/28/20 History insulin lispro 100 unit/mL 35 - 40 unit SUBCUT QID 09/28/20 09/28/20 History subcutaneous solution methocarbamol 750 mg tablet 750 mg PO BID 09/28/20 09/28/20 History omeprazole 40 mg capsule,delayed 40 mg PO DAILY 09/28/20 09/28/20 History release potassium chloride 20 mEq 20 meq PO BID 09/28/20 09/28/20 History tablet,extended release Past Med/Surg History Medical History (Updated 09/28/20 @ 16:45 by BILLIE Hubbard) Anxiety Benign hypertension Benign prostatic hyperplasia with urinary obstruction BPH (benign prostatic hyperplasia) Cervical disc disorder Chronic bronchitis Chronic neck pain Chronic pain syndrome Chronic rhinitis Chronic sinusitis, unspecified CKD (chronic kidney disease), stage III 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 COPD (chronic obstructive pulmonary disease) Costochondritis Depression Diabetes mellitus, type II IDDM Diabetic neuropathy Dizziness Dyslipidemia Elevated diaphragm GERD (gastroesophageal reflux disease) Grade II diastolic dysfunction Hearing deficit RIGHT EAR DEAF Heartburn HLD (hyperlipidemia) HTN (hypertension) Hypervolemia Hypogammaglobulinemia Kidney stones Mood disorder Narcotic dependence Nasal septal deviation Neck pain Normal colonoscopy On anticoagulant therapy ASA 81MG Osteoarthritis Physical deconditioning Pneumonia MAY 2018 Seasonal allergies Sleep apnea 2LPM VIA N/C Steatosis of liver (Unknown) Tachycardia Tingling Tobacco use Ureteral stone Vasodepressor syncope Surgical History History of colonoscopy History of esophagogastroduodenoscopy (EGD) History of lithotripsy S/P PICC central line placement WITH REMOVAL (JUNE 2018) Family History Grandmother Family history of diabetes mellitus Cancer Father Family history of high blood pressure FHx: heart disease Hypertension Sister Asthma Allergies Hypertension Mother Hearing loss Hypertension Uncle Hypertension Other Heart disease No family history of adverse response to anesthesia No family history of bleeding disorder Social History Smoking Status: Never smoker Tobacco Type: Smokeless Tobacco (Dip or Chew) Second Hand Exposure: No; Hx Alcohol Use: No Hx Substance Use: No Preferred Language: Swedish Communication Ability: Effective Visual Impairment: Limited Terrazzo Helper Required: No Beliefs That Will Affect Care: None marital status: Current Living Situation: Spouse Current Living Situation Comment: Home with spouse current occupational status: unemployed and disabled Feels Safe at Home: Yes Review of Systems Review of Systems: ROS per HPI, all other systems reviewed and negative Physical Exam Constitutional: WD/WN, vitals as above + obese Eyes: PERRL, conjunctivae normal, anicteric sclerae ENMT: external ear and nose normal, oropharynx normal Respiratory: normal respiratory effort, lungs clear to auscultation Cardiovascular: Rate/Rhythm: regular rate and regular rhythm Vessels: normal peripheral pulses Extremities: no edema Gastrointestinal (Abdomen): normal bowel sounds, soft, nontender, no hepatosplenomegaly Musculoskeletal: Extremities: no cyanosis and no clubbing strength BLE 4/5 Skin: no rashes, warm and dry Neurologic: PERRL, EOMI, accommodation nl, no face palsy, no dysarthria Psychiatric: A+Ox3, euthymic affect Results & Data Results & Data ([facility]) Vital Signs (Past 12 Hours) Vital Signs Temp Pulse Resp BP Pulse Ox 09/28/20 14:30 108 H 19 134/83 95 09/28/20 14:00 88 18 125/69 94 09/28/20 13:30 89 18 131/81 93 09/28/20 13:00 99 H 23 133/90 93 09/28/20 12:40 104 H 16 96 09/28/20 12:32 101 H 21 96 09/28/20 12:00 93 H 13 150/96 H 90 09/28/20 11:30 100 H 16 116/72 91 09/28/20 11:00 102 H 21 125/79 96 09/28/20 10:31 110 H 30 H 151/104 H 94 09/28/20 10:30 122 H 22 95 09/28/20 09:55 14 150/97 H 97 09/28/20 09:34 37.0 C 122 H 22 98 Laboratory Results Short CBC 09/28/20 Range/Units 10:45 WBC 11.58 H (4.8-10.8) K/uL Hgb 14.2 (14.0-18.0) g/dL Hct 43.1 (42-52) % Plt Count 260 (130-400) K/uL BMP 09/28/20 10:45 Sodium 134 L Potassium 4.3 Chloride 102 Carbon Dioxide 22 BUN 15 Creatinine 1.63 H Glucose 369 H* Calcium 9.1 Cardiac Enzymes 09/28/20 Range/Units 10:45 Troponin I < 0.015 (0-0.045) ng/ml Liver Function 09/28/20 Range/Units 10:45 Total Bilirubin 0.6 (0.2-1) mg/dl AST 34 (15-37) U/L ALT 55 (12-78) U/L Alkaline Phosphatase 91 (45-117) U/L Albumin 3.2 L (3.4-5.0) gm/dl Diagnostic Findings Chest X-Ray 09/28/20 10:22 XR chest 1V portable HISTORY: 59 years-old Male Chest Pain acute atypical chest pain with shortness of breath COMPARISON: Chest radiograph 08/18/2020, CTA chest 08/06/2020 TECHNIQUE: Portable AP view of the chest FINDINGS: Cardiac silhouette is enlarged. Chronic right hemidiaphragmatic elevation. No pneumothorax, pleural effusion, airspace consolidation or overt pulmonary edema. Degenerative changes of the shoulders and spine. IMPRESSION: 1. Cardiomegaly without acute process. 2. Chronic right hemidiaphragmatic elevation. ACT 112: Negative or not required by law. The above report was generated using voice recognition software. It may contain grammatical, syntax or spelling errors. Electronically signed by: Skyler Whittaker M.D. 09/28/2020 10:42 AM Code Status & VTE Plan Code Status Patient is a full code as per my discussion with him. VTE Prophylaxis Plan VTE Prophylaxis will be ordered: Yes Supervising Physician Co-Signing Physician Notes History and physical exam performed by me History notable for 59-year-old man with PMH DM type II, chronic hypervolemia, chronic bronchitis, COPD, hypogammaglobulinemia, HTN, tachycardia, CKD stage III, chronic pain, mood disorder, and other problems listed below who presents to the ED for evaluation of lower extremity weakness that has worsened over the past couple of weeks. Reports chronic intermittent pains in both legs especially below the knee. Review of system also notable for chronic leg swelling, chronic low back pain, exertional dyspnea, uses oxygen 2 L/min at bedtime, obstructive urinary symptoms [hesitancy, poor stream, incomplete emptying] Patient denies use of cigarettes/alcohol/illicit drugs. Reports he chews tobacco has been treated since he was in his teens. Physical exam notable for obesity,, pedal edema Lab work notable for creatinine of 1.6 [creatinine has ranged from 1.2-1.3s], blood glucose of 369 CT of the lumbar spine reported no acute fracture or subluxation. Reported small posterior annular disc bulge at L2-L3 but no significant central canal or neural foraminal narrowing. -Generalized weakness -Leg pains -Ambulatory dysfunction. -Hyperglycemia. 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 Continue gabapentin Poor glycemic control. We will get diabetic education We will hold Bumex for today and give gentle IV fluids to help with both BASIL and hyperglycemia. Pharmacy on board for glycemic control. PT/OT evaluation Agree with other plans as detailed by Paola WISE
--- NOTE | 2020-09-28 16:55 | CT Scan Report ---
CT lumbar spine wo con HISTORY: 59 years-old Male leg weakness, back pain acute back pain with lower extremity weakness COMPARISON: CT abdomen and pelvis 08/18/2020 TECHNIQUE: Multiple axial CT images of the lumbar spine were obtained without the use of IV contrast. A dose lowering technique was used consistent with the principals of TONNY. FINDINGS: No acute fracture, subluxation or endplate erosion. Moderate multilevel facet arthrosis with associat ed moderate anterior endplate osteophytic spurring. Mild degeneration of the SI joints. No sacral fra cture or erosion identified. No spondylolysis or spondylolisthesis. Atherosclerosis of the aorta with out aneurysm. Urinary bladder distention. No paravertebral edema. Evaluation of the central canal and neuroforamina is better assessed by MRI. T12-L1: No central canal or neural foraminal narrowing. L1-L2: No central canal or neural foraminal narrowing. L2-L3: Small posterior annular disc bulge flattens the ventral thecal sac. No significant central can al or neural foraminal narrowing. L3-L4: No central canal or neural foraminal narrowing. L4-L5: Tiny posterior annular disc bulge results in mild bilateral neural foraminal stenosis. The gabriela tral canal is patent. L5-S1: Mild intervertebral disc space narrowing. No central canal or neural foraminal narrowing. IMPRESSION: 1. No acute fracture or subluxation. 2. Facet arthrosis with spondylitic spurring as above. No significant central canal or neural foramin al narrowing. 3. Small posterior annular disc bulge at L2-L3. ACT 112: Negative or not required by law. The above report was generated using voice recognition software. It may contain grammatical, syntax o r spelling errors. Electronically signed by: Skyler Whittaker M.D. 09/28/2020 4:54 PM
--- NOTE | 2020-09-28 18:09 | Electrocardiogram Report ---
Test Reason : Blood Pressure : / mmHG Vent. Rate : 103 BPM Atrial Rate : 103 BPM P-R Int : 138 ms QRS Dur : 082 ms QT Int : 350 ms P-R-T Axes : 072 053 048 degrees QTc Int : 458 ms Sinus tachycardia Nonspecific ST abnormality Otherwise normal ECG When compared with ECG of 19-AUG-2020 04:59, No significant change was found Confirmed by Willie Ryder ([id number]) on 09/28/2020 6:08:52 PM Referred By: REFERRED SELF Confirmed By:Antoine Ryder
[2020-09-28] MEDS ORDERED: LORazepam 0.5 MG TAB PO PRN (19:24)
[2020-09-28] MEDS ORDERED: INSULIN GLARGINE SOLOSTAR 100 UNITS/ML 3 ML PEN SC SCH (20:00)
[2020-09-28] MEDS: FINASTERIDE 5 MG TAB PO SCH (20:44)
[2020-09-28] MEDS: GABAPENTIN 600 MG TAB PO SCH (20:50)
[2020-09-28] MEDS: buPROPion SR 150 MG TABCR PO SCH (20:51)
[2020-09-28] MEDS: METHOCARBAMOL 750 MG TABLET PO SCH (20:51)
[2020-09-28] MEDS: carBAMazepine 200 MG TABLET PO SCH (20:52)
[2020-09-28] MEDS: INSULIN ASPART 100 UNITS/ML 3 ML PEN SC SCH (20:54)
[2020-09-28] MEDS: HEPARIN SOD 5,000 UNIT/0.5 ML VIAL SQ SCH (20:57)
[2020-09-28] MEDS ORDERED: PROPRANOLOL HCL 10 MG TAB PO SCH (21:00)
[2020-09-28] MEDS: oxyCODONE HCL IR 5 MG TAB (IMMEDIATE RELEASE) PO PRN (23:17)
[2020-09-29] MEDS: INSULIN ASPART 100 UNITS/ML 3 ML PEN SC SCH ×6 (00:27→21:29)
[2020-09-29] MEDS: ACETAMINOPHEN 325 MG TAB PO PRN (00:29)
[2020-09-29] MEDS: HEPARIN SOD 5,000 UNIT/0.5 ML VIAL SQ SCH ×3 (04:21→21:26)
[2020-09-29] MEDS: SODIUM CHLORIDE 0.9% 1000ML 1,000 ML IV SCH (04:25)
[2020-09-29 06:20] LABS: Hematocrit (blood only) 38.2 % (42-52); Hemoglobin 12.5 g/dL (14.0-18.0); Mean Corpuscular Hemoglobin 28.6 pg (25-34); Mean Corpuscular Hgb Conc 32.7 g/dL (32-36); Mean Corpuscular Volume 87.4 fL (80-100); Mean Platelet Volume 11.6 fL (7.4-10.4); Platelet Count 228 K/uL (130-400); RDW Coefficient of Variation 13.8 % (11.5-14.5); RDW Standard Deviation 44.5 fL (36.4-46.3); Red Blood Count 4.37 M/uL (4.7-6.1); White Blood Count 7.67 K/uL (4.8-10.8)
[2020-09-29 07:00] LABS: BUN Creatinine Ratio 13.4 (10-20); Calcium 8.5 mg/dl (8.5-10.1); Est GFR (African American) 92.6 ml/min; Est GFR (Non-African American) 79.9 ml/min; Potassium 3.9 mmol/L (3.5-5.1)
[2020-09-29 07:15] LABS: Estimated Average Glucose 258 mg/dl; Hemoglobin A1C 10.6 % (4.5-5.6)
[2020-09-29] MEDS: oxyCODONE HCL IR 5 MG TAB (IMMEDIATE RELEASE) PO PRN ×3 (07:44→21:41)
[2020-09-29] MEDS: ASPIRIN 81 MG ECTAB PO SCH (08:58)
[2020-09-29] MEDS: METOPROLOL SUCC 25MG EXT REL TAB PO SCH (08:58)
[2020-09-29] MEDS: FAMOTIDINE 20 MG TAB PO SCH (08:58)
[2020-09-29] MEDS: GABAPENTIN 600 MG TAB PO SCH ×3 (08:58→21:27)
[2020-09-29] MEDS: ESCITALOPRAM OXALATE 20 MG TAB PO SCH (08:58)
[2020-09-29] MEDS: CYANOCOBALAMIN 500 MCG TABLET (VITAMIN B-12) PO SCH (08:58)
[2020-09-29] MEDS: ROSUVASTATIN CALCIUM 20 MG TAB PO SCH (08:59)
[2020-09-29] MEDS: carBAMazepine 200 MG TABLET PO SCH ×2 (08:59→21:27)
[2020-09-29] MEDS: METHOCARBAMOL 750 MG TABLET PO SCH ×2 (08:59→21:27)
[2020-09-29] MEDS: PANTOprazole 40 MG TAB PO SCH (08:59)
[2020-09-29] MEDS: buPROPion SR 150 MG TABCR PO SCH ×2 (08:59→21:28)
[2020-09-29] MEDS: TAMSULOSIN HCL 0.4 MG CAP PO SCH (08:59)
[2020-09-29] MEDS: dilTIAZem HCL 240 MG CAPCR PO SCH (08:59)
[2020-09-29] MEDS: FLUTICASONE/VILANTEROL 200/25MCG 14 PUFFS/INHALER INH SCH (09:00)
[2020-09-29] MEDS ORDERED: DULoxetine HCL 60 MG CAP PO SCH (09:00)
--- NOTE | 2020-09-29 11:16 | Hospitalist Progress Note ---
Date of Service September 29, 2020 Assessment & Plan (1) Weakness: (2) Hyperglycemia: (3) Diabetes mellitus, type II: Plan: Poorly controlled diabetes A1c 10.6 Patient reports blood glucose runs from 300-500 at home especially when he takes prednisone recently for some exacerbation of ?COPD versus asthma. Provided extensive education regarding diabetes management. Pharmacy on board for glycemic control. Carbohydrate controlled diet childbirth educator consult. (4) CKD (chronic kidney disease), stage III: Plan: Creatinine was 1.6 on admission. Likely mild BASIL on CKD 3 [creatinine has ranged from 1.2-1.3 is recently]. Creatinine is 1.01 today. Resume home Bumex. (5) Tachycardia: (6) Hypogammaglobulinemia: Plan: -follows with allergy -receives IgG replacement (7) HTN (hypertension): Plan: BP controlled Continue metoprolol and diltiazem (8) Chronic pain syndrome: Plan: Patient's lower extremity paresthesia. Likely due to diabetic neuropathy patient oriented better glycemic control. Continue home medication including Neurontin Get PT/OT evaluation. Patient would likely need some rehab. CT of the lumbar spine reported no acute fracture or subluxation. Reported small posterior annular disc bulge at L2-L3 but no significant central canal or neural foraminal narrowing (9) COPD (chronic obstructive pulmonary disease): Plan: Stable, no signs of acute exacerbation Continue home inhalers (10) Mood disorder: Plan: Continue home meds (11) DVT prophylaxis: Plan: -SQ heparin Admission and Anticipated Discharge Date Admission Date: September 28, 2020 Subjective 59-year-old man with PMH DM type II, chronic hypervolemia, chronic bronchitis, COPD, hypogammaglobulinemia, HTN, tachycardia, CKD stage III, chronic pain, mood disorder, and other problems listed below who presents to the ED for evaluation of lower extremity weakness/pain that has worsened over the past couple of weeks Patient seen and examined this morning. Reports pain in both legs, described as shooting pain radiating from the feet into the legs. Patient also reports chronic numbness and paresthesias Review of Systems Constitutional: + fatigue; no fever and no chills Eyes: no problem reported Ear, Nose, Mouth, Throat: no problem reported Respiratory: + dyspnea on exertion; no cough and no dyspnea Cardiovascular: + dyspnea on exertion and + edema; no chest pain and no dyspnea Gastrointestinal: no abdominal pain Genitourinary: + difficulty urinating; no dysuria or no urinary frequency Musculoskeletal: Leg pains Neurologic: + paresthesia Psychiatric: no depression and no anxiety Physical Exam Constitutional: + well hydrated and + obese; no acute distress Eyes: PERRL, conjunctivae normal, anicteric sclerae ENMT: external ear and nose normal, oropharynx normal Respiratory: normal respiratory effort, lungs clear to auscultation Cardiovascular: Rate/Rhythm: regular rate and regular rhythm S1 S2 Gastrointestinal (Abdomen): normal bowel sounds, soft, nontender, no hepatosplenomegaly Musculoskeletal: +1 pedal edema Neurologic: PERRL, EOMI, accommodation nl, no face palsy, no dysarthria Psychiatric: A+Ox3, euthymic affect Genitourinary: no CVA tenderness Results & Data Results & Data ([facility]) Vital Signs (Past 12 Hours) Vital Signs Temp Pulse Resp BP Pulse Ox 09/29/20 07:53 36.6 C 89 16 124/77 94 Laboratory Results Abnormal lab results 09/28/20 09/28/20 09/29/20 Range/Units 18:28 20:42 00:24 RBC (4.7-6.1) M/uL Hgb (14.0-18.0) g/dL Hct (42-52) % MPV (7.4-10.4) fL Chloride (98-107) mmol/L Anion Gap (3-11) Glucose (70-99) mg/dl POC Glucose 264 H 257 H 215 H (70-99) mg/dl Hemoglobin A1c (4.5-5.6) % 09/29/20 09/29/20 09/29/20 Range/Units 04:25 06:04 06:04 RBC 4.37 L (4.7-6.1) M/uL Hgb 12.5 L (14.0-18.0) g/dL Hct 38.2 L (42-52) % MPV 11.6 H (7.4-10.4) fL Chloride 108 H (98-107) mmol/L Anion Gap 1.0 L (3-11) Glucose 181 H (70-99) mg/dl POC Glucose 158 H (70-99) mg/dl Hemoglobin A1c (4.5-5.6) % 09/29/20 09/29/2021 Range/Units 06:04 08:02 11:44 RBC (4.7-6.1) M/uL Hgb (14.0-18.0) g/dL Hct (42-52) % MPV (7.4-10.4) fL Chloride (98-107) mmol/L Anion Gap (3-11) Glucose (70-99) mg/dl POC Glucose 191 H 253 H (70-99) mg/dl Hemoglobin A1c 10.6 H (4.5-5.6) %
--- NOTE | 2020-09-29 13:31 | Pharmacy Report ---
Pharmacy Glycemic Short Note 2 - Date of Service September 29, 2020 - Glycemic Short BSG Results (Last 24 hours): 09/28/20 09/28/20 09/29/20 18:28 20:42 00:24 Glucose POC Glucose 264 H 257 H 215 H 09/29/20 09/29/20 09/29/20 04:25 06:04 08:02 Glucose 181 H POC Glucose 158 H 191 H 09/29/20 11:44 Glucose POC Glucose 253 H OUTPATIENT ANTIDIABETIC REGIMEN: * Lantus 60 units daily * Novolog 35-38 units TIDM * Trulicity * HbA1C = 10.6% ASSESSMENT: * Mr Marie is a 59 y/o M with a PMH of IDDM who presents with weakness. Blood sugars over 300 mg/dL at home and on presentation. * Patient given an initial dose of Lantus 40 units last night (weight-based stress of 3). He received 5 units overnight. * Give Lantus 50 units at bedtime. Per previous admission, patient required Lantus 30 units BID while on prednisone 20 mg daily. Do not want to give a full 60 units right now but as demonstrated overnight, patient requires more than 40 units. * Novolog weight-based stress of 3 for now. PLAN FOR INPATIENT GLYCEMIC CONTROL: * Hold outpatient oral diabetes medications * Basal insulin * Lantus 50 units SQ HS * Bolus insulin * NovoLog per scale ACHS or Q6hrs while NPO * Goal Range: Low 110 mg/dL - High 140 mg/dL * Correction Factor: 15 mg/dL/unit * Nutritional / Prandial insulin per carb ratio of 1 unit per 4 grams CHO consumed PLAN FOR DISCHARGE: * TBD
[2020-09-29] MEDS: FINASTERIDE 5 MG TAB PO SCH (16:09)
[2020-09-29] MEDS: BUMETANIDE 1 MG TAB PO SCH ×2 (16:09→17:33)
[2020-09-29] MEDS: INSULIN GLARGINE SOLOSTAR 100 UNITS/ML 3 ML PEN SC SCH (17:26)
[2020-09-30] MEDS: HEPARIN SOD 5,000 UNIT/0.5 ML VIAL SQ SCH ×5 (02:21→21:34)
[2020-09-30 06:43] LABS: Hematocrit (blood only) 39.1 % (42-52); Hemoglobin 12.9 g/dL (14.0-18.0); Mean Corpuscular Hemoglobin 28.8 pg (25-34); Mean Corpuscular Volume 87.3 fL (80-100); Mean Platelet Volume 12.1 fL (7.4-10.4); Platelet Count 258 K/uL (130-400); RDW Coefficient of Variation 13.9 % (11.5-14.5); RDW Standard Deviation 44.6 fL (36.4-46.3); Red Blood Count 4.48 M/uL (4.7-6.1); White Blood Count 8.22 K/uL (4.8-10.8)
[2020-09-30 06:58] LABS: Appearance Urine Clear (Clear); Bilirubin Urine Negative (Negative); Blood Urine Negative (Negative); Color Urine Yellow; Glucose Urine UA Negative (Negative); Ketones Urine Trace (Negative); Leukocyte Esterase Urine Negative (Negative); Nitrite Urine Negative (Negative); Protein Urine Negative (Negative); Specific Gravity Urine 1.017 (1.000-1.030); Urobilinogen Urine Negative (Negative)
[2020-09-30 07:17] LABS: BUN Creatinine Ratio 12.7 (10-20); Calcium 8.6 mg/dl (8.5-10.1); Creatinine Clr Calc Pharmacy 108.3 ml/min; Est GFR (African American) 97.3 ml/min; Est GFR (Non-African American) 83.9 ml/min; Potassium 3.6 mmol/L (3.5-5.1)
[2020-09-30] MEDS: ROSUVASTATIN CALCIUM 20 MG TAB PO SCH (08:47)
[2020-09-30] MEDS: PANTOprazole 40 MG TAB PO SCH (08:47)
[2020-09-30] MEDS: METOPROLOL SUCC 25MG EXT REL TAB PO SCH (08:47)
[2020-09-30] MEDS: TAMSULOSIN HCL 0.4 MG CAP PO SCH (08:47)
[2020-09-30] MEDS: FLUTICASONE/VILANTEROL 200/25MCG 14 PUFFS/INHALER INH SCH (08:47)
[2020-09-30] MEDS: dilTIAZem HCL 240 MG CAPCR PO SCH (08:48)
[2020-09-30] MEDS: ESCITALOPRAM OXALATE 20 MG TAB PO SCH (08:48)
[2020-09-30] MEDS: METHOCARBAMOL 750 MG TABLET PO SCH ×2 (08:48→21:33)
[2020-09-30] MEDS: GABAPENTIN 600 MG TAB PO SCH ×3 (08:48→21:33)
[2020-09-30] MEDS: CYANOCOBALAMIN 500 MCG TABLET (VITAMIN B-12) PO SCH (08:48)
[2020-09-30] MEDS: buPROPion SR 150 MG TABCR PO SCH ×2 (08:48→19:33)
[2020-09-30] MEDS: FAMOTIDINE 20 MG TAB PO SCH (08:48)
[2020-09-30] MEDS: carBAMazepine 200 MG TABLET PO SCH ×2 (08:48→19:33)
[2020-09-30] MEDS: BUMETANIDE 1 MG TAB PO SCH ×3 (08:48→17:36)
[2020-09-30] MEDS: ASPIRIN 81 MG ECTAB PO SCH (08:49)
[2020-09-30] MEDS: INSULIN ASPART 100 UNITS/ML 3 ML PEN SC SCH ×4 (08:50→19:56)
[2020-09-30] MEDS ORDERED: INSULIN GLARGINE SOLOSTAR 100 UNITS/ML 3 ML PEN SC ONE (09:00)
--- NOTE | 2020-09-30 09:32 | Pharmacy Report ---
Pharmacy Glycemic Short Note 2 - Date of Service September 30, 2020 - Glycemic Short BSG Results (Last 24 hours): 09/29/20 09/29/20 09/29/20 11:44 17:11 20:54 Glucose POC Glucose 253 H 221 H 207 H 09/30/20 09/30/20 05:53 07:30 Glucose 168 H POC Glucose 175 H OUTPATIENT ANTIDIABETIC REGIMEN: * Lantus 60 units daily * Novolog 35-38 units TIDM * Trulicity * HbA1C = 10.6% ASSESSMENT: 09/30/20: * Sina received 103 units of insulin yesterday with poor glycemic control: * 50 units of basal insulin * 53 units of bolus insulin * all BSGs were above goal * Fasting BSG = 175 mg/dL. I will give an additional 10 units of Lantus this AM and continue ordered dose of 50 units tonight. If he tolerates this well, can change to 60 units qHS on 10/01. * Will tighten correction factor and carb ratio to help with post prandial hyperglycemia Background: * Mr Marie is a 59 y/o M with a PMH of IDDM who presents with weakness. Blood sugars over 300 mg/dL at home and on presentation. * Patient given an initial dose of Lantus 40 units last night (weight-based stress of 3). He received 5 units overnight. * Give Lantus 50 units at bedtime. Per previous admission, patient required Lantus 30 units BID while on prednisone 20 mg daily. Do not want to give a full 60 units right now but as demonstrated overnight, patient requires more than 40 units. * Novolog weight-based stress of 3 for now. PLAN FOR INPATIENT GLYCEMIC CONTROL: * Hold outpatient oral diabetes medications * Basal insulin - increase * Lantus 10 units SQ this AM * Lantus 50 units SQ HS * Bolus insulin - tighten CF/CR * NovoLog per scale ACHS or Q6hrs while NPO * Goal Range: Low 110 mg/dL - High 140 mg/dL * Correction Factor: 10 mg/dL/unit * Nutritional / Prandial insulin per carb ratio of 1 unit per 3 grams CHO consumed PLAN FOR DISCHARGE: * A1c = 10.6% on 09/29/20 (previous A1c of 8.6%) * Current home regimen is heavy on bolus insulin. * Recommend increasing Lantus (dose to be determined) * Recommend resuming metformin (patient was previously on metformin and reports the drug was discontinued several weeks ago due to leg edema, however this did not improve with stopping metformin) * Recommend holding bedtime dose of bolus insulin unless large snack is eaten
[2020-09-30] MEDS: oxyCODONE HCL IR 5 MG TAB (IMMEDIATE RELEASE) PO PRN ×2 (11:50→23:09)
[2020-09-30] MEDS: ACETAMINOPHEN 325 MG TAB PO PRN (13:13)
--- NOTE | 2020-09-30 17:10 | Hospitalist Progress Note ---
Date of Service September 30, 2020 Assessment & Plan (1) Weakness: (2) Hyperglycemia: (3) Diabetes mellitus, type II: Plan: Poorly controlled diabetes with most recent A1c 10.6 on 09/29/20 Patient reports blood glucose runs from 300-500 at home especially when he takes prednisone recently for some exacerbation of ?COPD versus asthma. Provided extensive education regarding diabetes management. Pharmacy on board for glycemic control. certified adapted physical educator consult. On Lantus and insulin sliding scale (4) CKD (chronic kidney disease), stage III: Plan: Likely BASIL on CKD 3 Creatinine was 1.6 on admission. (creatinine has ranged from 1.2-1.3 is recently) Creatinine is 0.97 Resume home Bumex. Continue monitor BMP (5) Tachycardia: (6) Hypogammaglobulinemia: Plan: -follows with allergy -receives IgG replacement (7) HTN (hypertension): Plan: BP controlled Continue metoprolol and diltiazem (8) Chronic pain syndrome: Plan: Patient's lower extremity paresthesia. CT of the lumbar spine reported no acute fracture or subluxation. Reported small posterior annular disc bulge at L2-L3 but no significant central canal or neural foraminal narrowing Likely due to diabetic neuropathy patient oriented better glycemic control. Continue home medication including Neurontin PT on board and recommended to consider a short duration inpatient rehab (9) COPD (chronic obstructive pulmonary disease): Plan: Stable, no signs of acute exacerbation Continue home inhalers (10) Mood disorder: Plan: Continue home meds (11) DVT prophylaxis: Plan: -SQ heparin Admission and Anticipated Discharge Date Admission Date: September 28, 2020 Subjective Pt was seen and examined for follow up of weakness Lying in bed with no distress with at bedside Pt said that his energy is much better Denies any chest pain, palpitation, dizziness and SOB Physical Exam Physical Exam: General- No acute distress Head- atraumatic Eyes- PERRL, EOMI, ENT- oropharynx clear Neck- supple, no JVD Lungs- clear to auscultation Heart- regular rhythm; no murmur Abdomen- normal bowel sounds, soft, nontender Extremities- no calf tenderness Neuro- alert, oriented x 3; PERRL, EOMI; no facial palsy; no dysarthria Skin- warm & dry Results & Data Results & Data ([facility]) Vital Signs (Past 12 Hours) Vital Signs Temp Pulse Resp BP Pulse Ox 09/30/20 16:19 36.8 C 85 16 133/80 90 09/30/20 07:26 36.7 C 79 16 134/81 92
[2020-09-30] MEDS: FINASTERIDE 5 MG TAB PO SCH (17:36)
[2020-09-30] MEDS: INSULIN GLARGINE SOLOSTAR 100 UNITS/ML 3 ML PEN SC SCH (19:56)
[2020-10-01 06:13] LABS: Hematocrit (blood only) 41.2 % (42-52); Hemoglobin 13.7 g/dL (14.0-18.0); Mean Corpuscular Hemoglobin 28.9 pg (25-34); Mean Corpuscular Hgb Conc 33.3 g/dL (32-36); Mean Corpuscular Volume 86.9 fL (80-100); Mean Platelet Volume 11.6 fL (7.4-10.4); Platelet Count 256 K/uL (130-400); RDW Coefficient of Variation 13.9 % (11.5-14.5); RDW Standard Deviation 44.5 fL (36.4-46.3); Red Blood Count 4.74 M/uL (4.7-6.1); White Blood Count 8.33 K/uL (4.8-10.8)
[2020-10-01 06:28] LABS: Partial Thromboplastin Time 26.1 Seconds (21.0-31.0)
[2020-10-01] MEDS: dilTIAZem HCL 240 MG CAPCR PO SCH (08:50)
[2020-10-01] MEDS: CYANOCOBALAMIN 500 MCG TABLET (VITAMIN B-12) PO SCH (08:50)
[2020-10-01] MEDS: buPROPion SR 150 MG TABCR PO SCH ×2 (08:50→20:40)
[2020-10-01] MEDS: BUMETANIDE 1 MG TAB PO SCH ×3 (08:50→17:38)
[2020-10-01] MEDS: FLUTICASONE/VILANTEROL 200/25MCG 14 PUFFS/INHALER INH SCH (08:50)
[2020-10-01] MEDS: ASPIRIN 81 MG ECTAB PO SCH (08:50)
[2020-10-01] MEDS: METHOCARBAMOL 750 MG TABLET PO SCH ×2 (08:51→20:40)
[2020-10-01] MEDS: ESCITALOPRAM OXALATE 20 MG TAB PO SCH (08:51)
[2020-10-01] MEDS: GABAPENTIN 600 MG TAB PO SCH ×3 (08:51→20:40)
[2020-10-01] MEDS: carBAMazepine 200 MG TABLET PO SCH ×2 (08:51→20:40)
[2020-10-01] MEDS: FAMOTIDINE 20 MG TAB PO SCH (08:51)
[2020-10-01] MEDS: PANTOprazole 40 MG TAB PO SCH (08:51)
[2020-10-01] MEDS: ROSUVASTATIN CALCIUM 20 MG TAB PO SCH (08:51)
[2020-10-01] MEDS: TAMSULOSIN HCL 0.4 MG CAP PO SCH (08:51)
[2020-10-01] MEDS: METOPROLOL SUCC 25MG EXT REL TAB PO SCH (08:51)
[2020-10-01] MEDS: INSULIN ASPART 100 UNITS/ML 3 ML PEN SC SCH ×4 (08:52→20:44)
[2020-10-01] MEDS: oxyCODONE HCL IR 5 MG TAB (IMMEDIATE RELEASE) PO PRN ×2 (10:20→20:37)
--- NOTE | 2020-10-01 10:36 | Pharmacy Report ---
Pharmacy Glycemic Short Note 2 - Date of Service October 01, 2020 - Glycemic Short BSG Results (Last 24 hours): 09/30/20 09/30/20 09/30/20 11:28 16:52 19:46 POC Glucose 172 H 186 H 135 H 10/01/20 08:23 POC Glucose 145 H OUTPATIENT ANTIDIABETIC REGIMEN: * Lantus 60 units daily * Novolog 35-38 units TIDM * Trulicity * HbA1C = 10.6% ASSESSMENT: 10/01/20: * Sina received 102 units of insulin yesterday with improved glycemic control: * 60 units of basal insulin * 42 units of bolus insulin * Fasting BSG = 145 mg/dL. Lantus dose was increased to a total of 60 units yesterday. Continue this dose as fasting is trending down. * Post prandial BSGs improved significantly. No change to novolog today. 09/30/20: * Sina received 103 units of insulin yesterday with poor glycemic control: * 50 units of basal insulin * 53 units of bolus insulin * all BSGs were above goal * Fasting BSG = 175 mg/dL. I will give an additional 10 units of Lantus this AM and continue ordered dose of 50 units tonight. If he tolerates this well, can change to 60 units qHS on 10/01. * Will tighten correction factor and carb ratio to help with post prandial hyperglycemia Background: * Mr Marie is a 59 y/o M with a PMH of IDDM who presents with weakness. Blood sugars over 300 mg/dL at home and on presentation. * Patient given an initial dose of Lantus 40 units last night (weight-based stress of 3). He received 5 units overnight. * Give Lantus 50 units at bedtime. Per previous admission, patient required Lantus 30 units BID while on prednisone 20 mg daily. Do not want to give a full 60 units right now but as demonstrated overnight, patient requires more than 40 units. * Novolog weight-based stress of 3 for now. PLAN FOR INPATIENT GLYCEMIC CONTROL: * Hold outpatient oral diabetes medications * Basal insulin * Lantus 60 units SQ HS * Bolus insulin * NovoLog per scale ACHS or Q6hrs while NPO * Goal Range: Low 110 mg/dL - High 140 mg/dL * Correction Factor: 10 mg/dL/unit * Nutritional / Prandial insulin per carb ratio of 1 unit per 3 grams CHO consumed PLAN FOR DISCHARGE: * A1c = 10.6% on 09/29/20 (previous A1c of 8.6%) * Patient reports home BSG readings are in the 300s. Current regimen is heavy on bolus insulin. * Recommend increasing Lantus dose by ~20% (70 units once daily) * Recommend resuming metformin (patient was previously on metformin and reports the drug was discontinued several weeks ago due to leg edema, however this did not improve with stopping metformin) * Recommend holding bedtime dose of bolus insulin unless large snack is eaten
[2020-10-01] MEDS: HEPARIN SOD 5,000 UNIT/0.5 ML VIAL SQ SCH ×2 (14:19→20:40)
--- NOTE | 2020-10-01 16:49 | Hospitalist Progress Note ---
Date of Service October 01, 2020 Assessment & Plan (1) Weakness: (2) Hyperglycemia: (3) Diabetes mellitus, type II: Plan: Poorly controlled diabetes with most recent A1c 10.6 on 09/29/20 Patient reports blood glucose runs from 300-500 at home especially when he takes prednisone recently for some exacerbation of ?COPD versus asthma. Provided extensive education regarding diabetes management. Pharmacy on board for glycemic control. gambling box person consult. Case discussed with pharmacy discharge on Lantus 70 units daily and resume his Metformin On Lantus and insulin sliding scale during the hospital course (4) CKD (chronic kidney disease), stage III: Plan: Likely BASIL on CKD 3 Creatinine was 1.6 on admission. (creatinine has ranged from 1.2-1.3 is recently) Creatinine is 0.97 Resume home Bumex. Continue monitor BMP (5) Tachycardia: (6) Hypogammaglobulinemia: Plan: -follows with allergy -receives IgG replacement (7) HTN (hypertension): Plan: BP controlled Continue metoprolol and diltiazem (8) Chronic pain syndrome: Plan: Patient's lower extremity paresthesia. CT of the lumbar spine reported no acute fracture or subluxation. Reported small posterior annular disc bulge at L2-L3 but no significant central canal or neural foraminal narrowing Likely due to diabetic neuropathy patient oriented better glycemic control. Continue home medication including Neurontin PT on board and recommended to consider a short duration inpatient rehab Waiting for placement to rehab (9) COPD (chronic obstructive pulmonary disease): Plan: Stable, no signs of acute exacerbation Continue home inhalers (10) Mood disorder: Plan: Continue home meds (11) DVT prophylaxis: Plan: -SQ heparin Admission and Anticipated Discharge Date Admission Date: September 30, 2020 Subjective Pt was seen and examined for follow up of weakness Lying in bed with no distress watching TV Patient said that he continues to get better Denies any chest pain, palpitation, dizziness and SOB Physical Exam Physical Exam: General- No acute distress Head- atraumatic Eyes- PERRL, EOMI, ENT- oropharynx clear Neck- supple, no JVD Lungs- clear to auscultation Heart- regular rhythm; no murmur Abdomen- normal bowel sounds, soft, nontender Extremities- no calf tenderness Neuro- alert, oriented x 3; PERRL, EOMI; no facial palsy; no dysarthria Skin- warm & dry Results & Data Results & Data ([facility]) Vital Signs (Past 12 Hours) Vital Signs Temp Pulse Resp BP Pulse Ox 10/01/20 07:44 36.7 C 76 18 117/67 92
[2020-10-01] MEDS: FINASTERIDE 5 MG TAB PO SCH (17:38)
[2020-10-01] MEDS: INSULIN GLARGINE SOLOSTAR 100 UNITS/ML 3 ML PEN SC SCH (20:44)
[2020-10-02] MEDS: HEPARIN SOD 5,000 UNIT/0.5 ML VIAL SQ SCH ×4 (04:44→23:54)
[2020-10-02] MEDS: oxyCODONE HCL IR 5 MG TAB (IMMEDIATE RELEASE) PO PRN ×3 (04:44→20:26)
[2020-10-02] MEDS: carBAMazepine 200 MG TABLET PO SCH ×2 (08:26→20:25)
[2020-10-02] MEDS: METHOCARBAMOL 750 MG TABLET PO SCH ×2 (08:26→20:25)
[2020-10-02] MEDS: METOPROLOL SUCC 25MG EXT REL TAB PO SCH (08:26)
[2020-10-02] MEDS: buPROPion SR 150 MG TABCR PO SCH ×2 (08:26→20:25)
[2020-10-02] MEDS: BUMETANIDE 1 MG TAB PO SCH ×3 (08:27→17:30)
[2020-10-02] MEDS: ROSUVASTATIN CALCIUM 20 MG TAB PO SCH (08:27)
[2020-10-02] MEDS: TAMSULOSIN HCL 0.4 MG CAP PO SCH (08:27)
[2020-10-02] MEDS: dilTIAZem HCL 240 MG CAPCR PO SCH (08:27)
[2020-10-02] MEDS: ESCITALOPRAM OXALATE 20 MG TAB PO SCH (08:27)
[2020-10-02] MEDS: ASPIRIN 81 MG ECTAB PO SCH (08:27)
[2020-10-02] MEDS: FAMOTIDINE 20 MG TAB PO SCH (08:28)
[2020-10-02] MEDS: FLUTICASONE/VILANTEROL 200/25MCG 14 PUFFS/INHALER INH SCH (08:28)
[2020-10-02] MEDS: PANTOprazole 40 MG TAB PO SCH (08:28)
[2020-10-02] MEDS: CYANOCOBALAMIN 500 MCG TABLET (VITAMIN B-12) PO SCH (08:28)
[2020-10-02] MEDS: GABAPENTIN 600 MG TAB PO SCH ×3 (08:28→20:25)
[2020-10-02] MEDS: INSULIN ASPART 100 UNITS/ML 3 ML PEN SC SCH ×4 (08:31→21:35)
[2020-10-02 09:12] LABS: Partial Thromboplastin Time 26.8 Seconds (21.0-31.0)
--- NOTE | 2020-10-02 15:06 | Pharmacy Report ---
Pharmacy Glycemic Short Note 2 - Date of Service October 02, 2020 - Glycemic Short BSG Results (Last 24 hours): 10/01/20 10/01/20 10/02/20 17:19 20:43 08:20 POC Glucose 147 H 112 H 99 10/02/20 11:53 POC Glucose 121 H OUTPATIENT ANTIDIABETIC REGIMEN: * Lantus 60 units daily * Novolog 35-38 units TIDM * Trulicity * HbA1C = 10.6% ASSESSMENT: 10/02/20: * Sina received 87 units of insulin yesterday with excellent glycemic control * Fasting BSG = 99 mg/dL. Will continue current Lantus order however dose may need reduced on 10/03 * Start metformin 500 mg BID - will loosen CF and CR with this agent on board 10/01/20: * Sina received 102 units of insulin yesterday with improved glycemic control: * 60 units of basal insulin * 42 units of bolus insulin * Fasting BSG = 145 mg/dL. Lantus dose was increased to a total of 60 units yesterday. Continue this dose as fasting is trending down. * Post prandial BSGs improved significantly. No change to novolog today. 09/30/20: * Sina received 103 units of insulin yesterday with poor glycemic control: * 50 units of basal insulin * 53 units of bolus insulin * all BSGs were above goal * Fasting BSG = 175 mg/dL. I will give an additional 10 units of Lantus this AM and continue ordered dose of 50 units tonight. If he tolerates this well, can change to 60 units qHS on 10/01. * Will tighten correction factor and carb ratio to help with post prandial hyperglycemia Background: * Mr Marie is a 59 y/o M with a PMH of IDDM who presents with weakness. Blood sugars over 300 mg/dL at home and on presentation. * Patient given an initial dose of Lantus 40 units last night (weight-based stress of 3). He received 5 units overnight. * Give Lantus 50 units at bedtime. Per previous admission, patient required Lantus 30 units BID while on prednisone 20 mg daily. Do not want to give a full 60 units right now but as demonstrated overnight, patient requires more than 40 units. * Novolog weight-based stress of 3 for now. PLAN FOR INPATIENT GLYCEMIC CONTROL: * Start metformin 500 mg PO BID * Basal insulin * Continue Lantus 60 units SQ HS * Bolus insulin - loosen * NovoLog per scale ACHS or Q6hrs while NPO * Goal Range: Low 110 mg/dL - High 140 mg/dL * Correction Factor: 12 mg/dL/unit * Nutritional / Prandial insulin per carb ratio of 1 unit per 4 grams CHO consumed PLAN FOR DISCHARGE: * A1c = 10.6% on 09/29/20 (previous A1c of 8.6%) * Patient reports home BSG readings are in the 300s. Current regimen is heavy on bolus insulin. * Recommend increasing Lantus dose by ~20% (70 units once daily) * Recommend resuming metformin (patient was previously on metformin and reports the drug was discontinued several weeks ago due to leg edema, however this did not improve with stopping metformin) * Recommend holding bedtime dose of bolus insulin unless large snack is eaten
[2020-10-02] MEDS: metFORMIN HCL 500 MG TAB PO SCH (17:29)
[2020-10-02] MEDS: FINASTERIDE 5 MG TAB PO SCH (17:29)
[2020-10-02] MEDS: INSULIN GLARGINE SOLOSTAR 100 UNITS/ML 3 ML PEN SC SCH (21:35)
--- NOTE | 2020-10-02 22:43 | Hospitalist Progress Note ---
Date of Service October 02, 2020 Assessment & Plan (1) Weakness: (2) Hyperglycemia: (3) Diabetes mellitus, type II: Plan: Poorly controlled diabetes with most recent A1c 10.6 on 09/29/20 Patient reports blood glucose runs from 300-500 at home especially when he takes prednisone recently for some exacerbation of ?COPD versus asthma. Provided extensive education regarding diabetes management. Pharmacy on board for glycemic control. certified adapted physical educator consult. Case discussed with pharmacy recommended to discharge on Lantus 60 units daily Metformin resumed On Lantus and insulin sliding scale during the hospital course (4) CKD (chronic kidney disease), stage III: Plan: Likely BASIL on CKD 3 Creatinine was 1.6 on admission. (creatinine has ranged from 1.2-1.3 is recently) Creatinine is 0.97 Resume home Bumex. Continue monitor BMP (5) Hypogammaglobulinemia: Plan: -follows with allergy -receives IgG replacement (6) HTN (hypertension): Plan: BP controlled Continue metoprolol and diltiazem (7) Chronic pain syndrome: Plan: Patient's lower extremity paresthesia. CT of the lumbar spine reported no acute fracture or subluxation. Reported small posterior annular disc bulge at L2-L3 but no significant central canal or neural foraminal narrowing Likely due to diabetic neuropathy patient oriented better glycemic control. Continue home medication including Neurontin PT on board and recommended to consider a short duration inpatient rehab Waiting for placement to rehab (8) COPD (chronic obstructive pulmonary disease): Plan: Stable, no signs of acute exacerbation Continue home inhalers (9) Mood disorder: Plan: Continue home meds (10) DVT prophylaxis: Plan: -SQ heparin Admission and Anticipated Discharge Date Admission Date: September 30, 2020 Subjective Pt was seen and examined for follow up of weakness Lying in bed with no distress watching TV Patient said that he feels fine today He said that he walk around with therapy He hopes to go to rehab today if not he said that he would rather go home Denies any chest pain, palpitation, dizziness and SOB Physical Exam Physical Exam: General- No acute distress Head- atraumatic Eyes- PERRL, EOMI, ENT- oropharynx clear Neck- supple, no JVD Lungs- clear to auscultation Heart- regular rhythm; no murmur Abdomen- normal bowel sounds, soft, nontender Extremities- no calf tenderness Neuro- alert, oriented x 3; PERRL, EOMI; no facial palsy; no dysarthria Skin- warm & dry Results & Data Results & Data ([facility]) Vital Signs (Past 12 Hours) Vital Signs Temp Pulse Resp BP Pulse Ox 10/02/20 15:07 36.7 C 79 18 121/75 94
[2020-10-03] MEDS: oxyCODONE HCL IR 5 MG TAB (IMMEDIATE RELEASE) PO PRN ×3 (04:21→17:22)
[2020-10-03 07:39] LABS: Partial Thromboplastin Time 26.7 Seconds (21.0-31.0)
[2020-10-03] MEDS: dilTIAZem HCL 240 MG CAPCR PO SCH (09:00)
[2020-10-03] MEDS: METOPROLOL SUCC 25MG EXT REL TAB PO SCH (09:00)
[2020-10-03] MEDS: PANTOprazole 40 MG TAB PO SCH (09:00)
[2020-10-03] MEDS: TAMSULOSIN HCL 0.4 MG CAP PO SCH (09:00)
[2020-10-03] MEDS: metFORMIN HCL 500 MG TAB PO SCH ×2 (09:01→17:22)
[2020-10-03] MEDS: CYANOCOBALAMIN 500 MCG TABLET (VITAMIN B-12) PO SCH (09:01)
[2020-10-03] MEDS: ESCITALOPRAM OXALATE 20 MG TAB PO SCH (09:01)
[2020-10-03] MEDS: ROSUVASTATIN CALCIUM 20 MG TAB PO SCH (09:01)
[2020-10-03] MEDS: BUMETANIDE 1 MG TAB PO SCH ×3 (09:01→17:21)
[2020-10-03] MEDS: FAMOTIDINE 20 MG TAB PO SCH (09:01)
[2020-10-03] MEDS: METHOCARBAMOL 750 MG TABLET PO SCH ×2 (09:02→20:15)
[2020-10-03] MEDS: buPROPion SR 150 MG TABCR PO SCH ×2 (09:02→20:15)
[2020-10-03] MEDS: ASPIRIN 81 MG ECTAB PO SCH (09:02)
[2020-10-03] MEDS: FLUTICASONE/VILANTEROL 200/25MCG 14 PUFFS/INHALER INH SCH (09:02)
[2020-10-03] MEDS: carBAMazepine 200 MG TABLET PO SCH ×2 (09:02→20:15)
[2020-10-03] MEDS: GABAPENTIN 600 MG TAB PO SCH ×3 (09:02→20:14)
[2020-10-03] MEDS: INSULIN ASPART 100 UNITS/ML 3 ML PEN SC SCH ×4 (09:05→21:06)
--- NOTE | 2020-10-03 11:05 | Pharmacy Report ---
Pharmacy Glycemic Short Note 2 - Date of Service October 03, 2020 - Glycemic Short BSG Results (Last 24 hours): 10/02/20 10/02/20 10/02/20 11:53 16:46 20:44 POC Glucose 121 H 152 H 130 H 10/03/20 08:14 POC Glucose 93 OUTPATIENT ANTIDIABETIC REGIMEN: * Lantus 60 units daily * Novolog 35-38 units TIDM * Trulicity * HbA1C = 10.6% ASSESSMENT: 10/03/20 * Pt has received 89 units of insulin over the past 24hrs * 60 units of basal with Lantus * 29 units of bolus with NovoLog * Metformin 500mg PO BIDM (first dose last evening) * BSGs [phone] mg/dl * BSGs well controlled with current regimen. * AM fasting is slightly below goal range for inpatient targets at 93mg/dl- will lower Lantus slightly since metformin also added last evening * No changes needed to CF/CR as post-prandial BSGs in range. May need to loosen parameters since metformin started but will wait for now 10/02/20: * Sina received 87 units of insulin yesterday with excellent glycemic control * Fasting BSG = 99 mg/dL. Will continue current Lantus order however dose may need reduced on 10/03 * Start metformin 500 mg BID - will loosen CF and CR with this agent on board 10/01/20: * Sina received 102 units of insulin yesterday with improved glycemic control: * 60 units of basal insulin * 42 units of bolus insulin * Fasting BSG = 145 mg/dL. Lantus dose was increased to a total of 60 units yesterday. Continue this dose as fasting is trending down. * Post prandial BSGs improved significantly. No change to novolog today. 09/30/20: * Sina received 103 units of insulin yesterday with poor glycemic control: * 50 units of basal insulin * 53 units of bolus insulin * all BSGs were above goal * Fasting BSG = 175 mg/dL. I will give an additional 10 units of Lantus this AM and continue ordered dose of 50 units tonight. If he tolerates this well, can change to 60 units qHS on 10/01. * Will tighten correction factor and carb ratio to help with post prandial hyperglycemia Background: * Mr Marie is a 59 y/o M with a PMH of IDDM who presents with weakness. Blood sugars over 300 mg/dL at home and on presentation. * Patient given an initial dose of Lantus 40 units last night (weight-based stress of 3). He received 5 units overnight. * Give Lantus 50 units at bedtime. Per previous admission, patient required Lantus 30 units BID while on prednisone 20 mg daily. Do not want to give a full 60 units right now but as demonstrated overnight, patient requires more than 40 units. * Novolog weight-based stress of 3 for now. PLAN FOR INPATIENT GLYCEMIC CONTROL: * Continue metformin 500 mg PO BID * Basal insulin * decrease Lantus 55 units SQ HS * Bolus insulin - no change * NovoLog per scale ACHS or Q6hrs while NPO * Goal Range: Low 110 mg/dL - High 140 mg/dL * Correction Factor: 12 mg/dL/unit * Nutritional / Prandial insulin per carb ratio of 1 unit per 4 grams CHO consumed PLAN FOR DISCHARGE: * A1c = 10.6% on 09/29/20 (previous A1c of 8.6%) * Patient reports home BSG readings are in the 300s. Current regimen is heavy on bolus insulin. * Recommend increasing Lantus dose by ~20% (70 units once daily). Likely outpatient diet is much different from inpatient controlled CHO intake * Recommend resuming metformin (patient was previously on metformin and reports the drug was discontinued several weeks ago due to leg edema, however this did not improve with stopping metformin) * Recommend holding bedtime dose of bolus insulin unless large snack is eaten
[2020-10-03] MEDS: HEPARIN SOD 5,000 UNIT/0.5 ML VIAL SQ SCH ×2 (12:55→20:16)
[2020-10-03] MEDS: FINASTERIDE 5 MG TAB PO SCH (17:22)
--- NOTE | 2020-10-03 19:22 | Hospitalist Progress Note ---
Date of Service October 03, 2020 Assessment & Plan (1) Weakness: (2) Hyperglycemia: (3) Diabetes mellitus, type II: Plan: Poorly controlled diabetes with most recent A1c 10.6 on 09/29/20 Patient reports blood glucose runs from 300-500 at home especially when he takes prednisone recently for some exacerbation of ?COPD versus asthma. Provided extensive education regarding diabetes management. Pharmacy on board for glycemic control. licensed embalmer consult. Case discussed with pharmacy recommended to discharge on Lantus 60 units daily Metformin resumed On Lantus and insulin sliding scale during the hospital course Blood sugar improved (4) CKD (chronic kidney disease), stage III: Plan: Likely BASIL on CKD 3 Creatinine was 1.6 on admission. (creatinine has ranged from 1.2-1.3 is recently) Creatinine is 0.97 Resume home Bumex. Continue monitor BMP (5) Hypogammaglobulinemia: Plan: -follows with allergy -receives IgG replacement (6) HTN (hypertension): Plan: BP controlled Continue metoprolol and diltiazem (7) Chronic pain syndrome: Plan: Patient's lower extremity paresthesia. CT of the lumbar spine reported no acute fracture or subluxation. Reported small posterior annular disc bulge at L2-L3 but no significant central canal or neural foraminal narrowing Likely due to diabetic neuropathy patient oriented better glycemic control. Continue home medication including Neurontin PT on board and recommended to consider a short duration inpatient rehab Waiting for placement to rehab (8) COPD (chronic obstructive pulmonary disease): Plan: Stable, no signs of acute exacerbation Continue home inhalers (9) Mood disorder: Plan: Continue home meds (10) DVT prophylaxis: Plan: -SQ heparin Admission and Anticipated Discharge Date Admission Date: September 30, 2020 Subjective Pt was seen and examined for follow up of weakness Lying in bed with no distress resting with at bedside Patient said that he feels fine today Patient is frustrated because he has been waiting to discharge to rehab Nurse said his gait is unsteady. I explained to him due to the unsteady gait, he is at risk of fall and injury He wanted to go home today but after discussed with him and his he decided to stay until Monday to transition to rehab Denies any chest pain, palpitation, dizziness and SOB Physical Exam Physical Exam: General- No acute distress Head- atraumatic Eyes- PERRL, EOMI, ENT- oropharynx clear Neck- supple, no JVD Lungs- clear to auscultation Heart- regular rhythm; no murmur Abdomen- normal bowel sounds, soft, nontender Extremities- no calf tenderness Neuro- alert, oriented x 3; PERRL, EOMI; no facial palsy; no dysarthria Skin- warm & dry Results & Data Results & Data ([facility]) Vital Signs (Past 12 Hours) Vital Signs Temp Pulse Resp BP Pulse Ox 10/03/20 15:52 36.9 C 79 18 102/63 92
[2020-10-03] MEDS: INSULIN GLARGINE SOLOSTAR 100 UNITS/ML 3 ML PEN SC SCH (21:05)
[2020-10-04] MEDS: oxyCODONE HCL IR 5 MG TAB (IMMEDIATE RELEASE) PO PRN ×4 (00:20→18:18)
[2020-10-04] MEDS: HEPARIN SOD 5,000 UNIT/0.5 ML VIAL SQ SCH ×3 (03:33→20:42)
[2020-10-04] MEDS: ACETAMINOPHEN 325 MG TAB PO PRN (05:50)
[2020-10-04 07:25] LABS: Hemoglobin 14.9 g/dL (14.0-18.0); Mean Corpuscular Hemoglobin 28.7 pg (25-34); Mean Corpuscular Hgb Conc 33.1 g/dL (32-36); Mean Corpuscular Volume 86.5 fL (80-100); Mean Platelet Volume 11.7 fL (7.4-10.4); Platelet Count 340 K/uL (130-400); RDW Coefficient of Variation 14.1 % (11.5-14.5); RDW Standard Deviation 44.5 fL (36.4-46.3); White Blood Count 10.24 K/uL (4.8-10.8)
[2020-10-04 07:35] LABS: Partial Thromboplastin Ratio 1.1; Partial Thromboplastin Time 27.9 Seconds (21.0-31.0)
[2020-10-04] MEDS: carBAMazepine 200 MG TABLET PO SCH ×2 (09:06→20:45)
[2020-10-04] MEDS: METHOCARBAMOL 750 MG TABLET PO SCH ×2 (09:06→20:44)
[2020-10-04] MEDS: PANTOprazole 40 MG TAB PO SCH (09:06)
[2020-10-04] MEDS: ROSUVASTATIN CALCIUM 20 MG TAB PO SCH (09:06)
[2020-10-04] MEDS: FAMOTIDINE 20 MG TAB PO SCH (09:06)
[2020-10-04] MEDS: CYANOCOBALAMIN 500 MCG TABLET (VITAMIN B-12) PO SCH (09:07)
[2020-10-04] MEDS: GABAPENTIN 600 MG TAB PO SCH ×3 (09:07→20:44)
[2020-10-04] MEDS: ESCITALOPRAM OXALATE 20 MG TAB PO SCH (09:07)
[2020-10-04] MEDS: TAMSULOSIN HCL 0.4 MG CAP PO SCH (09:07)
[2020-10-04] MEDS: METOPROLOL SUCC 25MG EXT REL TAB PO SCH (09:07)
[2020-10-04] MEDS: ASPIRIN 81 MG ECTAB PO SCH (09:08)
[2020-10-04] MEDS: FLUTICASONE/VILANTEROL 200/25MCG 14 PUFFS/INHALER INH SCH (09:08)
[2020-10-04] MEDS: buPROPion SR 150 MG TABCR PO SCH ×2 (09:08→20:44)
[2020-10-04] MEDS: BUMETANIDE 1 MG TAB PO SCH ×3 (09:08→17:46)
[2020-10-04] MEDS: metFORMIN HCL 500 MG TAB PO SCH ×2 (09:08→17:46)
[2020-10-04] MEDS: dilTIAZem HCL 240 MG CAPCR PO SCH (09:08)
[2020-10-04] MEDS: INSULIN ASPART 100 UNITS/ML 3 ML PEN SC SCH ×4 (09:12→20:45)
--- NOTE | 2020-10-04 12:32 | Hospitalist Progress Note ---
Date of Service October 04, 2020 Assessment & Plan (1) Weakness: (2) Hyperglycemia: (3) Diabetes mellitus, type II: Plan: Poorly controlled diabetes with most recent A1c 10.6 on 09/29/20 Patient reports blood glucose runs from 300-500 at home especially when he takes prednisone recently for some exacerbation of ?COPD versus asthma. Provided extensive education regarding diabetes management. Pharmacy on board for glycemic control. clinical trial educator consult. Case discussed with pharmacy recommended to discharge on Lantus 60 units daily Continue metformin On Lantus and insulin sliding scale during the hospital course Blood sugar improved Continue monitor BS (4) CKD (chronic kidney disease), stage III: Plan: Likely BASIL on CKD 3 Creatinine was 1.6 on admission. (creatinine has ranged from 1.2-1.3 is recently) Creatinine is 0.97 Resume home Bumex. Continue monitor BMP (5) Hypogammaglobulinemia: Plan: -follows with allergy -receives IgG replacement (6) HTN (hypertension): Plan: BP controlled Continue metoprolol and diltiazem (7) Chronic pain syndrome: Plan: Patient's lower extremity paresthesia. CT of the lumbar spine reported no acute fracture or subluxation. Reported small posterior annular disc bulge at L2-L3 but no significant central canal or neural foraminal narrowing Likely due to diabetic neuropathy patient oriented better glycemic control. Continue home medication including Neurontin PT on board and recommended to consider a short duration inpatient rehab Waiting for placement to rehab (8) COPD (chronic obstructive pulmonary disease): Plan: Stable, no signs of acute exacerbation Continue home inhalers (9) Mood disorder: Plan: Continue home meds (10) DVT prophylaxis: Plan: -SQ heparin Admission and Anticipated Discharge Date Admission Date: September 30, 2020 Subjective Pt was seen and examined for follow up of weakness Sitting at the edge of the bed with no distress Pt said that he feels ok He said that he continues to feels weak He is hoping to go to rehab tomorrow Denies any chest pain, palpitation, dizziness and SOB Physical Exam Physical Exam: General- No acute distress Head- atraumatic Eyes- PERRL, EOMI, ENT- oropharynx clear Neck- supple, no JVD Lungs- clear to auscultation Heart- regular rhythm; no murmur Abdomen- normal bowel sounds, soft, nontender Extremities- no calf tenderness Neuro- alert, oriented x 3; PERRL, EOMI; no facial palsy; no dysarthria Skin- warm & dry Results & Data Results & Data ([facility]) Vital Signs (Past 12 Hours) Vital Signs Temp Pulse Resp BP Pulse Ox 10/04/20 08:09 36.7 C 67 19 121/79 92
[2020-10-04] MEDS: FINASTERIDE 5 MG TAB PO SCH (17:46)
[2020-10-04] MEDS: INSULIN GLARGINE SOLOSTAR 100 UNITS/ML 3 ML PEN SC SCH (20:46)
[2020-10-05] MEDS: HEPARIN SOD 5,000 UNIT/0.5 ML VIAL SQ SCH ×3 (05:53→20:50)
[2020-10-05] MEDS: oxyCODONE HCL IR 5 MG TAB (IMMEDIATE RELEASE) PO PRN ×3 (06:24→21:02)
--- NOTE | 2020-10-05 08:41 | Pharmacy Report ---
Pharmacy Glycemic Short Note 2 - Date of Service October 05, 2020 - Glycemic Short BSG Results (Last 24 hours): 10/04/20 10/04/20 10/04/20 11:59 17:14 20:40 POC Glucose 122 H 124 H 115 H 10/05/20 08:11 POC Glucose 90 OUTPATIENT ANTIDIABETIC REGIMEN: * Lantus 60 units SC daily * Novolog 35-38 units SC TIDM * Trulicity 3 mg SC on * HbA1C = 10.6% ASSESSMENT: 10/05: * Sina received a total of 65 units of insulin yesterday * 55 units of basal + 10 units of bolus * Also, on Metformin 500 mg PO BIDM * BSGs were well controlled yesterday: 48-811-312-115 mg/dL * Fasting BSG continued to trend down this AM to 90 mg/dL * Given regimen is basal heavy and fasting is trending down, will decrease basal insulin slightly today * No other changes 10/03: * Pt has received 89 units of insulin over the past 24hrs * 60 units of basal with Lantus * 29 units of bolus with NovoLog * Metformin 500mg PO BIDM (first dose last evening) * BSGs [phone] mg/dl * BSGs well controlled with current regimen. * AM fasting is slightly below goal range for inpatient targets at 93mg/dl- will lower Lantus slightly since metformin also added last evening * No changes needed to CF/CR as post-prandial BSGs in range. May need to loosen parameters since metformin started but will wait for now PLAN FOR INPATIENT GLYCEMIC CONTROL: * Continue metformin 500 mg PO BID * Basal insulin - decreased * Lantus 50 units SC HS * Bolus insulin - no change * NovoLog per scale ACHS or Q6hrs while NPO * Goal Range: Low 110 mg/dL - High 140 mg/dL * Correction Factor: 15 mg/dL/unit * Nutritional / Prandial insulin per carb ratio of 1 unit per 5 grams CHO consumed PLAN FOR DISCHARGE: * A1c = 10.6% on 09/29/20 (previous A1c of 8.6%) * Patient reports home BSG readings are in the 300s. Current regimen is heavy on bolus insulin. * Recommend increasing Lantus dose by ~20% (70 units once daily). Likely outpatient diet is much different from inpatient controlled CHO intake * Recommend resuming metformin (patient was previously on metformin and reports the drug was discontinued several weeks ago due to leg edema, however this did not improve with stopping metformin) * Recommend holding bedtime dose of bolus insulin unless large snack is eaten
[2020-10-05] MEDS: buPROPion SR 150 MG TABCR PO SCH ×2 (09:02→21:01)
[2020-10-05] MEDS: FLUTICASONE/VILANTEROL 200/25MCG 14 PUFFS/INHALER INH SCH (09:02)
[2020-10-05] MEDS: carBAMazepine 200 MG TABLET PO SCH ×2 (09:02→21:01)
[2020-10-05] MEDS: CYANOCOBALAMIN 500 MCG TABLET (VITAMIN B-12) PO SCH (09:02)
[2020-10-05] MEDS: TAMSULOSIN HCL 0.4 MG CAP PO SCH (09:02)
[2020-10-05] MEDS: GABAPENTIN 600 MG TAB PO SCH ×3 (09:02→21:01)
[2020-10-05] MEDS: ESCITALOPRAM OXALATE 20 MG TAB PO SCH (09:03)
[2020-10-05] MEDS: ASPIRIN 81 MG ECTAB PO SCH (09:03)
[2020-10-05] MEDS ORDERED: bisacodyL 5 MG TABEC PO PRN (09:03)
[2020-10-05] MEDS: METHOCARBAMOL 750 MG TABLET PO SCH ×2 (09:03→21:02)
[2020-10-05] MEDS: PANTOprazole 40 MG TAB PO SCH (09:03)
[2020-10-05] MEDS: ROSUVASTATIN CALCIUM 20 MG TAB PO SCH (09:03)
[2020-10-05] MEDS: dilTIAZem HCL 240 MG CAPCR PO SCH (09:04)
[2020-10-05] MEDS: FAMOTIDINE 20 MG TAB PO SCH (09:04)
[2020-10-05] MEDS: METOPROLOL SUCC 25MG EXT REL TAB PO SCH (09:04)
[2020-10-05] MEDS: BUMETANIDE 1 MG TAB PO SCH ×3 (09:04→17:18)
[2020-10-05] MEDS: INSULIN ASPART 100 UNITS/ML 3 ML PEN SC SCH ×4 (09:05→21:04)
[2020-10-05] MEDS: metFORMIN HCL 500 MG TAB PO SCH ×2 (09:59→17:18)
[2020-10-05] MEDS: FINASTERIDE 5 MG TAB PO SCH (17:18)
--- NOTE | 2020-10-05 17:40 | Hospitalist Progress Note ---
Date of Service October 05, 2020 Assessment & Plan (1) Weakness: (2) Hyperglycemia: (3) Diabetes mellitus, type II: Plan: Poorly controlled diabetes with most recent A1c 10.6 on 09/29/20 Patient reports blood glucose runs from 300-500 at home especially when he takes prednisone recently for some exacerbation of ?COPD versus asthma. Provided extensive education regarding diabetes management. Pharmacy on board for glycemic control. certified adaptive physical educator consult. Case discussed with pharmacy recommended to discharge on Lantus 60 units daily Continue metformin On Lantus and insulin sliding scale during the hospital course Blood sugar improved Continue monitor BS (4) CKD (chronic kidney disease), stage III: Plan: Likely BASIL on CKD 3 Creatinine was 1.6 on admission. (creatinine has ranged from 1.2-1.3 is recently) Creatinine is 0.97 Resume home Bumex. Continue monitor BMP (5) Hypogammaglobulinemia: Plan: -follows with allergy -receives IgG replacement (6) HTN (hypertension): Plan: BP controlled Continue metoprolol and diltiazem (7) Chronic pain syndrome: Plan: Patient's lower extremity paresthesia. CT of the lumbar spine reported no acute fracture or subluxation. Reported small posterior annular disc bulge at L2-L3 but no significant central canal or neural foraminal narrowing Likely due to diabetic neuropathy patient oriented better glycemic control. Continue home medication including Neurontin PT on board and recommended to consider a short duration inpatient rehab Waiting for placement to rehab (8) COPD (chronic obstructive pulmonary disease): Plan: Stable, no signs of acute exacerbation Continue home inhalers (9) Mood disorder: Plan: Continue home meds (10) DVT prophylaxis: Plan: -SQ heparin Admission and Anticipated Discharge Date Admission Date: September 30, 2020 Subjective Pt was seen and examined for follow up of weakness Lying in bed with no acute distress Patient seen earlier today he had some jerking movement in his extremities He said that if he does not go to rehab tomorrow morning, he will walk out of the hospital to go home Denies any chest pain, palpitation, dizziness and SOB Physical Exam Physical Exam: General- No acute distress Head- atraumatic Eyes- PERRL, EOMI, ENT- oropharynx clear Neck- supple, no JVD Lungs- clear to auscultation Heart- regular rhythm; no murmur Abdomen- normal bowel sounds, soft, nontender Extremities- no calf tenderness Neuro- alert, oriented x 3; PERRL, EOMI; no facial palsy; no dysarthria Skin- warm & dry Results & Data Results & Data ([facility]) Vital Signs (Past 12 Hours) Vital Signs Temp Pulse Pulse Resp BP Pulse Ox 10/05/20 14:43 36.7 C 75 16 123/79 92 10/05/20 09:12 69 121/75 10/05/20 05:58 36.6 C 66 16 126/80 93
[2020-10-05] MEDS ORDERED: INSULIN GLARGINE SOLOSTAR 100 UNITS/ML 3 ML PEN SC SCH (21:00)
[2020-10-05] MEDS: ACETAMINOPHEN 325 MG TAB PO PRN (21:02)
[2020-10-05 21:57] VITALS: TEMP 97.7
[2020-10-06] MEDS: INSULIN ASPART 100 UNITS/ML 3 ML PEN SC SCH ×4 (00:40→12:47)
[2020-10-06] MEDS: HEPARIN SOD 5,000 UNIT/0.5 ML VIAL SQ SCH ×2 (05:57→13:51)
[2020-10-06] MEDS: oxyCODONE HCL IR 5 MG TAB (IMMEDIATE RELEASE) PO PRN ×2 (06:00→12:30)
[2020-10-06 06:48] LABS: Partial Thromboplastin Ratio 1.1
[2020-10-06 07:11] LABS: BUN Creatinine Ratio 12.8 (10-20); Calcium 9.2 mg/dl (8.5-10.1); Creatinine Clr Calc Pharmacy 77.2 ml/min; Est GFR (African American) 64.6 ml/min; Est GFR (Non-African American) 55.8 ml/min; Magnesium 2.1 mg/dl (1.8-2.4); Phosphorus 4.1 mg/dl (2.5-4.9); Potassium 3.4 mmol/L (3.5-5.1)
[2020-10-06 08:31] VITALS: O2SAT 93
[2020-10-06] MEDS: carBAMazepine 200 MG TABLET PO SCH (09:02)
[2020-10-06] MEDS: ROSUVASTATIN CALCIUM 20 MG TAB PO SCH (09:02)
[2020-10-06] MEDS: buPROPion SR 150 MG TABCR PO SCH (09:02)
[2020-10-06] MEDS: GABAPENTIN 600 MG TAB PO SCH ×2 (09:02→13:36)
[2020-10-06] MEDS: METHOCARBAMOL 750 MG TABLET PO SCH (09:02)
[2020-10-06] MEDS: ESCITALOPRAM OXALATE 20 MG TAB PO SCH (09:03)
[2020-10-06] MEDS: BUMETANIDE 1 MG TAB PO SCH ×2 (09:03→12:47)
[2020-10-06] MEDS: TAMSULOSIN HCL 0.4 MG CAP PO SCH (09:03)
[2020-10-06] MEDS: CYANOCOBALAMIN 500 MCG TABLET (VITAMIN B-12) PO SCH (09:03)
[2020-10-06] MEDS: FAMOTIDINE 20 MG TAB PO SCH (09:04)
[2020-10-06] MEDS: METOPROLOL SUCC 25MG EXT REL TAB PO SCH (09:04)
[2020-10-06] MEDS: ASPIRIN 81 MG ECTAB PO SCH (09:04)
[2020-10-06] MEDS: PANTOprazole 40 MG TAB PO SCH (09:04)
[2020-10-06] MEDS: FLUTICASONE/VILANTEROL 200/25MCG 14 PUFFS/INHALER INH SCH (09:05)
[2020-10-06] MEDS: dilTIAZem HCL 240 MG CAPCR PO SCH (09:05)
[2020-10-06] MEDS: metFORMIN HCL 500 MG TAB PO SCH (09:05)
[2020-10-06] MEDS ORDERED: POTASSIUM CHLORIDE CRTAB 20 MEQ TABCR PO STA ×2 (09:48→12:39)
--- NOTE | 2020-10-06 10:43 | CT Scan Report ---
HEAD CT NONCONTRAST CT DOSE: 720.95 mGycm HISTORY: weakness TECHNIQUE: Multiaxial CT images of the head were performed without the use of intravenous contrast. A utomated exposure control was utilized for this study. A dose lowering technique was utilized adheri ng to the principles of ALARA. Comparison: Head CT 11/10/2016. Findings: The paranasal sinuses and mastoid air cells are clear. The calvarium and skull base are int act. The ventricles and sulci are within normal limits. There is no mass, hematoma, midline shift, or acute infarct. Impression: No acute intracranial abnormality. ACT 112: Negative or not required by law. Electronically signed by: Mukesh Mcwilliams M.D. 10/06/2020 10:42 AM
[2020-10-06 14:32] VITALS: BP 121/74; PULSE 69
== END 2020-10-06 15:01 | disposition home health service (06) ==
LOC: ED 09:21 → 3E 09:21 → SUATTDRO 14:01 → 3E 18:54

== ENCOUNTER 2021-07-07 06:42 | Observation (INO) ==
[2021-07-07] MEDS ORDERED: HEPARIN (PORCINE) 1000 UNIT/ML 10 ML (CATH LAB USE ONLY) ONE ×2 (07:34→08:40)
[2021-07-07] MEDS ORDERED: niCARdipine HCL INJ 2.5 MG/ML 10 ML AMP ONE (07:34)
[2021-07-07] MEDS ORDERED: fentaNYL citrate 100 MCG/2 ML VIAL ONE (07:34)
[2021-07-07] MEDS ORDERED: MIDAZOLAM HCL 1 MG/ML 2ML VIAL ONE ×2 (07:34→10:01)
[2021-07-07] MEDS ORDERED: LIDOCAINE 1% LOCAL 20 ML VIAL ONE (07:35)
[2021-07-07] MEDS ORDERED: NITROGLYCERIN/D5W 100MCG/ML 20ML SYR ONE (07:35)
--- NOTE | 2021-07-07 07:49 | History & Physical Bridge Note ---
Date of Service July 07, 2021 History & Physical Bridge Note I have examined the patient, reviewed the History & Physical and in the interval since the performance of the History & Physical I have noted the following changes of clinical significance: no changes noted
--- NOTE | 2021-07-07 07:50 | Pre Anesthesia Assessment ---
Date of Service July 07, 2021 Pre Sedation Assessment Vital Signs Temp Pulse Resp BP Pulse Ox 07/07/21 07:05 36.6 C 98 H 18 165/109 H 95 Cardiovascular RRR, no murmur, no edema + S1 normal and + S2 normal + femoral pulses present and + radial pulses present; no JVD and no carotid bruit no edema Respiratory normal respiratory effort, lungs clear to auscultation Pre-Sedation Airway Assessment Smoking Status: Never smoker Hx Sleep Apnea: No (Does wear 2 LPM O2 at night) Hx Difficult Intubation: No Short, Thick Neck: No Thyromental Distance: > or= 3.5 Finger Breadths Oral Cavity: + Dentures Mallampati Class: IV ASA: ASA3 NPO Status Date of Last Intake of Fluids: 07/06/21 Time of Last Intake of Fluids: 21:00 Date of Last Intake of Solid Food: 07/06/21 Time of Last Intake of Solid Foods: 21:00 Procedure Planning Contraindications for Sedation: none Current Medications Reviewed: Yes Notes The planned sedation has been discussed with the patient. Informed Consent was obtained. I have identified the patient, determined the appropriateness of sedation and have assessed the patient immediately prior to the procedure. All medicine(s) and interventions are by my order.
[2021-07-07] MEDS ORDERED: ADENOSINE IV SOLN 3 MG/ML 20 ML VIAL IV ONE (08:43)
--- NOTE | 2021-07-07 08:54 | Post Anesthesia Assessment ---
Date of Service July 07, 2021 Post Sedation Assessment Vital Signs Temp Pulse Resp BP Pulse Ox 07/07/21 07:05 36.6 C 98 H 18 165/109 H 95 Recovery Score Activity: Moves 4 extremities Respiration: Deep Breath/Cough Circulation: +/-20% PreAnes Value Consciousness: Arouseable (by name) Oxygen Saturation: O2 needed for >90% Discharge Sedation Level of Care: Phase I Post Sedation Plan On clinical assessment, the patient appears to have tolerated the sedation without complications. Patient is recovering as anticipated. Patient will continue to be monitored by nursing and may be discharged when sedation discharge criteria are met per below protocol. Upon Completions of procedure up to 15 minutes continue every 5 minute vital signs and the P.A.R. score; then discharge to a Phase I or Fast Track to Phase II per the following guidelines: * Discharge Patient to appropriate Phase II area if PAR is 8 or greater or return to pre- procedure baseline. The post - procedure orders will be as directed. * If PAR score is less than 8 or not return to pre-procedure baseline then patient will follow Phase I monitoring till PAR is reached for Phase II. The Phase I may be done in procedure room or may call to secure a Phase I area. * If naloxone or flumazenil are used for reversal, hold in Phase I for continued monitoring from when last reversal dose was given for a minimum of 60 minutes or longer pending the nurse and/or physician discretion of patient condition before discharge to Phase II. Please call the Sedation Physician to re-evaluate and complete post-note for discharge to Phase II area. Do NOT discharge from procedure sedation or Phase 1 until post- sedation evaluation note is complete by procedure /sedation MD Sedation Discharge Instructions to be given to the patient at discharge to home.
--- NOTE | 2021-07-07 09:02 | Cardiac Catheterization ---
Cardiac Cath Procedure Full Procedure Date July 07, 2021 Pre-Procedure Diagnosis Pre-Procedure Diagnosis: Angina and Positive Stress Test (Equivocal dobutamine stress echo) AUC Score AUC Score: 7 Post-Procedure Diagnosis Post-Procedure Diagnosis: Moderate CAD (50% early mid RCA) and Normal Intracardiac Pressures Procedure(s) Performed Procedure(s) Performed: Coronary Angiography and Left Heart Cath Detail Technician David Greco DO [employer] Machine Feeder(s) Earlene RTR Estimated Blood Loss Estimated Blood Loss: 5cc Medication(s) Medication(s): Heparin, Lidocaine 1%, Nicardipine, Nitroglycerin and Versed Summary of Findings 50% early mid RCA (negative FFR 0.[address] Buckner) 40-50% diffuse mid LAD (significant FFR, 0.[address] uBckner) Hemodynamics Rest Ao:: 120/70/99 Final Ao: 130/82/104 LV: 104/2/9 Recommendations Recommendations: Management Recommendatons (FFR of mid RCA, and mid LAD) Radiation Exposure (mGy) 1250 Contrast (mls) 60 Fluids (cc crystalloids) Fluids (cc crystalloids): 60 Nss Drains Drains: N/A Anesthesia Moderate sedation. Start 0825. End 0843. Sedation Monitor: Jayy LANCE Procedural Complication(s) None Disposition Patient remained in [employer] Supervisor for FFR of RCA I attest to the content of the Intraoperative Record and any orders documented therein. Any exceptions are noted below. [facility] Data: [employer] Supervisor Cardiac Status Clinical evaluation leading to the procedure 60-year-old patient with history of chest discomfort at rest as well as with exertion. Recent dobutamine stress echo with reproduction of anginal symptoms and ECG changes, however, echocardiographic images fail to identify a region of ischemia. Cardiac catheterization recommended for definitive diagnosis. CAD Presenation: Positive Stress Test (Equivocal dobutamine stress echo.) and Stable angina Anginal Classification: CCS II Heart Failure: No Coronary Anatomy Dominant: Right Left Main (% Stenosis): Normal LAD (% Stenosis): Proximal (10%) and Mid (40-50% diffuse distal to D1, s ignificnat FFR 0.[address] Buckner)) D1 (% Stenosis): Normal Circumflex (% Stenosis): Normal OM1 (% Stenosis): Normal (small, 1.5mm vessel) OM2 (% Stenosis): Normal (small, 1.5mm vessel) L PL1 (% Stenosis): Normal RCA (% Stenosis): Mid (50% early mid, negative FFR 0.[address] Buckner) R PDA (% Stenosis): Ostial (10%) R PL1 (% Stenosis): Normal R PL2 (% Stenosis): Normal Ramus (% Stenosis): Normal (Large vessel) Diagnostic Physicians Name: David Greco DO Closure Device Percutaneous Entry Location: Radial Closure Device: Radial Band Recommendations: Management Recommendatons (FFR of mid RCA, and mid LAD) Intraprocedure Events Significant Disection: No Perforation: No
[2021-07-07] MEDS ORDERED: CLOPIDOGREL BISULFATE 300 MG TAB ONE (11:03)
[2021-07-07] MEDS ORDERED: ONDANSETRON INJ 2 MG/ML 2 ML VIAL IV PRN (11:26)
[2021-07-07] MEDS ORDERED: SODIUM CHLORIDE 0.9% 1000ML 1,000 ML IV SCH (11:30)
--- NOTE | 2021-07-07 11:37 | Post Anesthesia Assessment ---
Date of Service July 07, 2021 Post Sedation Assessment Vital Signs Temp Pulse Resp BP BP Pulse Ox 07/07/21 11:15 83 18 150/85 H 90 07/07/21 07:05 97.9 F 98 H 18 165/109 H 95 Recovery Score Activity: Moves 4 extremities Respiration: Deep Breath/Cough Circulation: +/-20% PreAnes Value Consciousness: Fully Awake Oxygen Saturation: O2 needed for >90% Post Anesthesia Score: 9 Discharge Sedation Level of Care: Fast Track Phase II Post Sedation Plan On clinical assessment, the patient appears to have tolerated the sedation without complications. Patient is recovering as anticipated. Patient will continue to be monitored by nursing and may be discharged when sedation discharge criteria are met per below protocol. Upon Completions of procedure up to 15 minutes continue every 5 minute vital signs and the P.A.R. score; then discharge to a Phase I or Fast Track to Phase II per the following guidelines: * Discharge Patient to appropriate Phase II area if PAR is 8 or greater or return to pre- procedure baseline. The post - procedure orders will be as directed. * If PAR score is less than 8 or not return to pre-procedure baseline then patient will follow Phase I monitoring till PAR is reached for Phase II. The Phase I may be done in procedure room or may call to secure a Phase I area. * If naloxone or flumazenil are used for reversal, hold in Phase I for continued monitoring from when last reversal dose was given for a minimum of 60 minutes or longer pending the nurse and/or physician discretion of patient condition before discharge to Phase II. Please call the Sedation Physician to re-evaluate and complete post-note for discharge to Phase II area. Do NOT discharge from procedure sedation or Phase 1 until post- sedation evaluation note is complete by procedure /sedation MD Sedation Discharge Instructions to be given to the patient at discharge to home.
--- NOTE | 2021-07-07 11:46 | Cardiac Catheterization ---
[facility] Data: [place] Cardiac Status Clinical evaluation leading to the procedure CAD Presenation: Positive Stress Test Anginal Classification: CCS III Diagnostic Physicians Name: Willie Buckner MD Closure Device Recommendations: PCI without planned CABG Cardiac Cath Procedure Full Procedure Date July 07, 2021 Pre-Procedure Diagnosis Pre-Procedure Diagnosis: Angina and Positive Stress Test (Equivocal dobutamine stress echo) AUC Score AUC Score: 7 Post-Procedure Diagnosis Post-Procedure Diagnosis: Severe CAD Procedure(s) Performed Procedure(s) Performed: Coronary Angiography, Drug Eluting Stent, IVUS and Fractional Flow Sterling Misdraw Hand Willie Buckner MD Chief Guard(s) Earlene RTR Estimated Blood Loss Estimated Blood Loss: 15 Medication(s) Medication(s): Clopidogrel, Heparin, Nicardipine, Nitroglycerin and Versed Summary of Findings Indication: Angina, abnormal stress test Access: 6 Fr right radial artery Catheters: JR4 guide, EBU 3.5 guide Findings: For full details of patient's coronary angiography please see cath report dictated by Dr. Greco. Briefly, patient found to have moderate mid RCA and moderate mid LAD disease after diagonal. Decision to further evaluate with FFR. FFR of RCA -RCA cannulated with JR4 guide -BMW wire navigated into distal RCA -ACIST Catheter placed across stenosis -Pd/Pa 0.98 -FFR 0.89 -Coronary angiography revealed no apparent complications post wire/catheter removal FFR of LAD -LM cannulated with EBU3.5 guide -BMW wire navigated into distal LAD -ACIST Catheter placed across stenosis -Pd/Pa 0.89 -FFR 0.79 Decision to proceed with PCI -- PCI of LAD-- Antithrombotic therapy: Heparin, clopidogrel Procedure: Pre-procedure flow MICHELLE 3 Additional helicopter pilot instructor 50 wire placed into diagonal Turlock IVUS catheter placed into mid LAD. Pullback revealed moderate to severe disease just after takeoff of diagonal, mildly calcified. No significant proximal LAD, left main disease. Mid LAD stented with 2.25 x 22 mm Josh drug-eluting stent across takeoff of diagonal Stent post-dilated with 3.0 noncompliant balloon Repeat IVUS showed well expanded, well apposed stent with no apparent edge complications. IC vasodilators administered for spasm Post procedure MICHELLE 3 flow, stent well expanded with minimal residual stenosis and no apparent cardiac complications. Arterial Closure: TR band Summary: 1. Severe mid LAD disease (FFR 0.79). 2. Moderate mid RCA disease (FFR 0.89). 3. Successful PCI of mid LAD with single drug-eluting stent (2.25 x 22 mm [place]; postdilated with 3.0 NC). Recommendations: To PCU for continued monitoring Loaded with clopidogrel 600 mg in [place] Continue dual-antiplatelet therapy for at least 6 months Continue statin, and ASCVD risk factor modification Consult cardiac Rehab Hemodynamics Rest Ao:: 139/84/108 Final Ao: 116/79/126 LV: Recommendations Recommendations: PCI without planned CABG Specimens Specimens: None Radiation Exposure (mGy) 3963 Contrast (mls) 110 Drains Drains: N/A Anesthesia Moderate sedation. Start 1002. End 1104. Sedation Monitor: Jayy LANCE Procedural Complication(s) None Disposition PCU I attest to the content of the Intraoperative Record and any orders documented therein. Any exceptions are noted below. [facility] Card Cath Procedure Codes Cardiac Catheterization Procedure 1: Cardiovascular Cath Procedures: 63788 (Doppler) Pressure Wire Procedure 2: Cardiovascular Cath Procedures: 56913 (Doppler) Pressure Wire Addl vessel Therapeutic Services & Ancillary Proc Procedure 1: Cardiovascular Tx and Anc Procedures: 48700 IV Ultrasound (Coronary or Graft) Moderate Sedation Procedure 1: Sedation/Anesthesia: 22127 Mod Sedation by the same physician; Ea [id number] Minutes Stenting Procedure 1: Cardiovascular Stent Procedures: 28800 Perc transcatheter placement of intracoronary stent(s), with ang PG Care Time/CCT Total # of Minutes Spent Total Time Spent with Patient: Total time spent is greater than 50% in coordination of care (as documented) at patient's floor/unit and/or counseling patient:
[2021-07-07] MEDS ORDERED: PHARMACY GLYCEMIC MGMT CONSULT PRN ×2 (12:41→16:04)
[2021-07-07] MEDS ORDERED: GLUCAGON FOR INJ 1 MG VIAL SQ PRN (12:41)
[2021-07-07] MEDS ORDERED: GLUCOSE 40% GEL 15 GM TUBE PO PRN (12:41)
[2021-07-07] MEDS ORDERED: DEXTROSE 50% 50 ML SYRINGE IV PRN (12:41)
[2021-07-07] MEDS ORDERED: CARBOHYDRATES FOR HYPOGLYCEMIA PO PRN (12:41)
[2021-07-07] MEDS ORDERED: GLUCOSE 10 TABS/TUBE PO PRN (12:41)
[2021-07-07] MEDS ORDERED: ALBUTEROL HFA 8 GM INHALER INH PRN (12:47)
[2021-07-07] MEDS ORDERED: hydrOXYzine HCl 25 MG TAB PO PRN (12:47)
--- NOTE | 2021-07-07 13:02 | History & Physical Report ---
Date of Service July 07, 2021 Assessment & Plan (1) Abnormal stress test: (2) CAD (coronary artery disease): (3) S/P cardiac cath: (4) Diabetes mellitus, type II: (5) COPD (chronic obstructive pulmonary disease): Plan: This is a 60-year-old male, goes by "Dominic," who has significant past medical history of T2DM, HTN, HLD, CKD stage III, COPD, BPH, depression with anxiety, fatty liver disease, GERD, tobacco use who presented for elective diagnostic cardiac cath secondary to failed outpatient stress test. Abnormal stress test CAD Status postcardiac cath Patient had abnormal stress test as outpatient and underwent elective diagnostic cardiac catheterization today He was found to have severe mid LAD disease and moderate mid RCA disease He underwent successful PCI mid LAD with a single SHELIA Patient admitted to PCU for further cardiac monitoring Continue ASA and Plavix for 6 months Continue Crestor and metoprolol Radial band in place a1c, lipid panel in a.m. [facility]iology on board T2DM -insulin-dependent Uncontrolled, last A1c 9.5 06/01/2021 Lantus/NovoLog per protocol Glycemic pharmacy Hold home regimen COPD RAQUEL on 2L of O2 At HS continue home inhalers no acute exac HTN BP stable On diltiazem, metoprolol, Bumex as outpatient Chronic back pain On oxycodone as needed, gabapentin, methocarbamol and Cymbalta Chronic leukocytosis wbc 15-20k previous heme w/u felt maybe 2/2 copd recommend f/u with PCP Chronic tobacco use smokeless encourage cessation Dvt ppx: SCD/TEDS Dispo: PCU, likely d/c tomorrow PCP: Fl[place] FULL CODE Pt was seen and examined in collaboration with Dr. Blue, please see addendum History of Present Illness Chief Complaint: Admission for + diagnostic cath s/p stent placement. Primary Care Provider: Yann Fraga MD This is a 60-year-old male who has significant past medical history of T2DM, HTN, HLD, CKD stage III, COPD, BPH, depression with anxiety, fatty liver disease, GERD, tobacco use who presented for elective diagnostic cardiac cath secondary to failed outpatient stress test. Patient underwent diagnostic catheterization by Dr. Greco and was found to have moderate RCA and mid LAD disease. Patient received 1 drug-eluting stent to LAD and plan is for admission for further cardiac monitoring. Procedure was w/o complication. He states he had an abn stress test as OP last week that lead to cath today. He has been getting off and on chest pain, substernal,described as burning "like heartburn," not radiating, assoc with SOB at rest and with walking. He does wear o2 at night. He denies recent f/c/s, palp, cough, uri sx, dizzy, lightheaded, n/v/d, abd pain, change in bowel or urinary habits. He denies alcohol or current tobacco use. He has +FH of DM and CAD. 2 brothers had DE when they were in their 60s. Post operatively he denies CP but is complaining of low back pain. He states LBP is chronic and he takes oxycodone for that. Allergies Allergy/AdvReac Type Severity Reaction Status Date / Time atenolol Allergy Severe DEPRESSION/ Verified 04/02/21 11:14 SUICIDAL amoxicillin Allergy Intermediate "SEVERE" Verified 04/02/21 11:14 DIARRHEA celecoxib Allergy Intermediate FLUID Verified 04/02/21 11:14 RETENTION-WT GAIN clavulanic acid Allergy Intermediate "SEVERE" Verified 04/02/21 11:14 DIARRHEA adhesive tape Allergy Mild Rash Verified 04/02/21 11:14 fluoxetine AdvReac Severe HALLUCINATI Verified 04/02/21 11:14 ONS Home Medications Medication Instructions Recorded Confirmed Type albuterol sulfate 90 mcg/actuation 2 puff INHALATION Q6H PRN 03/15/18 07/07/21 History aerosol inhaler (Ventolin HFA) aspirin 81 mg tablet,delayed 81 mg PO QAM 03/15/18 07/07/21 History release (Aspirin Low Dose) bupropion HCl 150 mg tablet,12 hr 150 mg PO BID 03/15/18 07/07/21 History sustained-release (Wellbutrin SR) fluticasone propionate 50 2 spray INTRANASAL BID 03/15/18 07/07/21 History mcg/actuation nasal spray,suspension (Flonase Allergy Relief) diltiazem HCl 240 mg capsule,24 240 mg PO QPM 06/12/18 07/07/21 History hr,extended release tamsulosin 0.4 mg capsule 0.4 mg PO DAILY 12/10/18 07/07/21 History azelastine 137 mcg (0.1 %) nasal 1 sprays INTNAS BID #30 ml 07/25/19 07/07/21 Rx spray aerosol epinephrine 0.3 mg/0.3 mL 0.3 mg IM Q20M PRN #1 ea 08/21/19 07/07/21 Rx injection, auto-injector sodium chloride 0.65 % nasal spray 1 spray INTNAS BID PRN #30 ml 11/27/19 07/07/21 Rx aerosol ([place] Saline) oxycodone 10 mg tablet 10 mg PO Q6H PRN 05/02/20 07/07/21 History sodium chloride 7 % for 4 ml INHALATION BID PRN 05/02/20 07/07/21 History nebulization cyanocobalamin (vitamin B-12) 1,000 mcg SUBLINGUAL DAILY 08/06/20 07/07/21 History 1,000 mcg sublingual tablet insulin glargine 100 unit/mL (3 37 unit SUBCUT BID 08/06/20 07/07/21 History mL) subcutaneous pen (Lantus Solostar U-100 Insulin) albuterol sulfate 2.5 mg INHALATION Q6H PRN 08/18/20 07/07/21 History bumetanide 1 mg tablet 1 mg PO TID 08/18/20 07/07/21 History loperamide 2 mg capsule 2 mg PO BID PRN 08/18/20 07/07/21 History metoprolol succinate 25 mg 37.5 mg PO DAILY 08/18/20 07/07/21 History tablet,extended release 24 hr naloxone 4 mg/actuation nasal spray 4 mg INTRANASAL UD 08/18/20 07/07/21 History prednisone 10 mg tablet 10 mg PO DAILY PRN 08/18/20 07/07/21 History rosuvastatin 40 mg tablet 40 mg PO DAILY 08/18/20 07/07/21 History ergocalciferol (vitamin D2) 50,000 50,000 unit PO WK 09/28/20 07/07/21 History unit tablet finasteride 5 mg tablet 5 mg PO QDD 09/28/20 07/07/21 History fluticasone furoate 200 1 inh INHALATION DAILY 09/28/20 07/07/21 History mcg-vilanterol 25 mcg/dose inhalation powder (Breo Ellipta) gabapentin 600 mg tablet 800 mg PO Q6 09/28/20 07/07/21 History insulin lispro 100 unit/mL 40 - 45 unit SUBCUT TIDWMEAL 09/28/20 07/07/21 History subcutaneous solution methocarbamol 750 mg tablet 750 mg PO BID 09/28/20 07/07/21 History potassium chloride 20 mEq 20 meq PO BID 09/28/20 07/07/21 History tablet,extended release ipratropium bromide 42 mcg (0.06 2 spray INTRANASAL DAILY PRN #15 ml 01/13/21 07/07/21 Rx %) nasal spray empagliflozin 10 mg tablet 25 mg PO DAILY 04/02/21 07/07/21 History (Jardiance) PreserVision AREDS-2 1 dose PO DAILY 07/07/21 07/07/21 History diclofenac sodium 75 mg 75 mg PO BID 07/07/21 07/07/21 History tablet,delayed release duloxetine 30 mg capsule,delayed 30 mg PO DAILY 07/07/21 07/07/21 History release (Cymbalta) famotidine 20 mg tablet (Acid 20 mg PO HS 07/07/21 07/07/21 History Sba Underwriter (famotidine)) hydroxyzine HCl 50 mg tablet 50 mg PO TID PRN 07/07/21 07/07/21 History levofloxacin 500 mg tablet 500 mg PO BID PRN 07/07/21 07/07/21 History magnesium 500 mg tablet 500 mg PO DAILY 07/07/21 07/07/21 History nitroglycerin 0.4 mg sublingual See Rx Instructions .ROUTE .COMPLEX 07/07/21 07/07/21 History tablet omeprazole 40 mg capsule,delayed 40 mg PO DAILY 07/07/21 07/07/21 History release propranolol 10 mg tablet 10 mg PO TID 07/07/21 07/07/21 History roflumilast 250 mcg tablet 250 mcg PO DAILY 07/07/21 07/07/21 History (Daliresp) Past Med/Surg History Medical History (Updated 07/07/21 @ 12:57 by Laine Choudhury PA-C) Anxiety Benign hypertension Benign prostatic hyperplasia with urinary obstruction Bilateral leg pain BPH (benign prostatic hyperplasia) Cervical disc disorder Chronic bronchitis Chronic neck pain Chronic rhinitis Chronic sinusitis, unspecified 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 COPD (chronic obstructive pulmonary disease) Costochondritis Depression Diabetes mellitus, type II IDDM Diabetic neuropathy Dizziness Dyslipidemia Elevated diaphragm GERD (gastroesophageal reflux disease) Grade II diastolic dysfunction Hearing deficit RIGHT EAR DEAF Heartburn HLD (hyperlipidemia) HTN (hypertension) Hyperglycemia Hypervolemia Kidney stones Mood disorder Narcotic dependence Nasal septal deviation Neck pain Normal colonoscopy On anticoagulant therapy ASA 81MG Osteoarthritis Physical deconditioning Pneumonia MAY 2018 Seasonal allergies Sleep apnea 2LPM VIA N/C Steatosis of liver (Unknown) Tachycardia Tingling Tobacco use Ureteral stone Vasodepressor syncope Weakness Surgical History (Updated 07/07/21 @ 12:57 by Laine Choudhury PA-C) History of colonoscopy History of esophagogastroduodenoscopy (EGD) History of lithotripsy S/P PICC central line placement WITH REMOVAL (JUNE 2018) Family History Grandmother Family history of diabetes mellitus Cancer Father Family history of high blood pressure FHx: heart disease Hypertension Sister Asthma Allergies Hypertension Mother Hearing loss Hypertension Uncle Hypertension Other Heart disease No family history of adverse response to anesthesia No family history of bleeding disorder Social History (Updated 07/07/21 @ 13:19 by Laine Choudhury PA-C) Smoking Status: Never smoker Tobacco Type: Smokeless Tobacco (Dip or Chew) Cigarettes Per Day: 1 can/2days; Second Hand Exposure: No; Do You Dip or Chew Tobacco: Yes; Hx Alcohol Use: No Hx Substance Use: No Preferred Language: Nauruan Communication Ability: Effective Visual Impairment: Limited Court Deputy Required: No Beliefs That Will Affect Care: None marital status: Current Living Situation: Spouse Current Living Situation Comment: Home with spouse current occupational status: unemployed and disabled Other Information That Helps Us Care for You: No Feels Safe at Home: Yes Safety Concerns: Feels Safe At This Time Assistive Devices: Cane, Denture - Upper, Glasses, Oxygen - at Night and Walker Review of Systems Review of Systems: All systems reviewed & are unremarkable except as noted in HPI & below Physical Exam Physical Exam: please refer to DR. Blue addendum for physical exam findings. Results & Data Results & Data ([facility]) Vital Signs (Past 12 Hours) Vital Signs Temp Pulse Resp BP BP Pulse Ox 07/07/21 12:15 75 18 150/97 H 96 07/07/21 12:00 77 18 169/94 H 96 07/07/21 11:45 83 18 148/106 H 96 07/07/21 11:30 79 18 152/104 H 94 07/07/21 11:15 83 18 150/85 H 90 07/07/21 07:05 36.6 C 98 H 18 165/109 H 95 Diagnostic Findings Summary of Findings Indication: Angina, abnormal stress test Access: 6 Fr right radial artery Catheters: JR4 guide, EBU 3.5 guide Findings: For full details of patient's coronary angiography please see cath report dict ated by Dr. Greco. Briefly, patient found to have moderate mid RCA and moderate mid LAD disease after diagonal. Decision to further evaluate with FFR. FFR of RCA -RCA cannulated with JR4 guide -BMW wire navigated into distal RCA -ACIST Catheter placed across stenosis -Pd/Pa 0.98 -FFR 0.89 -Coronary angiography revealed no apparent complications post wire/catheter removal FFR of LAD -LM cannulated with EBU3.5 guide -BMW wire navigated into distal LAD -ACIST Catheter placed across stenosis -Pd/Pa 0.89 -FFR 0.79 Decision to proceed with PCI -- PCI of LAD-- Antithrombotic therapy: Heparin, clopidogrel Procedure: Pre-procedure flow MICHELLE 3 Additional automatic pilot mechanic 50 wire placed into diagonal [place] IVUS catheter placed into mid LAD. Pullback revealed moderate to severe disease just after takeoff of diagonal, mildly calcified. No significant proximal LAD, left main disease. Mid LAD stented with 2.25 x 22 mm Josh drug-eluting stent across takeoff of diagonal Stent post-dilated with 3.0 noncompliant balloon Repeat IVUS showed well expanded, well apposed stent with no apparent edge complications. IC vasodilators administered for spasm Post procedure MICHELLE 3 flow, stent well expanded with minimal residual stenosis and no apparent cardiac complications. Arterial Closure: TR band Summary: 1. Severe mid LAD disease (FFR 0.79). 2. Moderate mid RCA disease (FFR 0.89). 3. Successful PCI of mid LAD with single drug-eluting stent (2.25 x 22 mm Josh; postdilated with 3.0 NC). Medications Administered Medication List Discontinued Medications Adenosine (Adenosine Iv Soln 3 Mg/Ml 20 Ml Vial) Confirm Administered Dose 120 mg IV .STK-MED ONE Stop: 07/07/21 08:44 Last Admin: 07/07/21 11:01 Dose: 120 mg Documented by: [id number] Clopidogrel Bisulfate (Clopidogrel Bisulfate 300 Mg Tab) Confirm Administered Dose 600 mg .ROUTE .[facility]-MED ONE Stop: 07/07/21 11:04 Last Admin: 07/07/21 12:13 Dose: Not Given Documented by: [id number] Fentanyl Citrate (Fentanyl Citrate 100 Mcg/2 Ml Vial) Confirm Administered Dose 100 mcg .ROUTE .[facility] ONE Stop: 07/07/21 07:35 Last Admin: 07/07/21 08:36 Dose: Not Given Documented by: [id number] Heparin Sodium (Porcine) (Heparin (Porcine) 1000 Unit/Ml 10 Ml (Document Controller Use Only)) Confirm Administered Dose 10,000 units .ROUTE .[facility] ONE Stop: 07/07/21 07:35 Last Admin: 07/07/21 08:37 Dose: 5,000 units Documented by: [id number] Heparin Sodium (Porcine) (Heparin (Porcine) 1000 Unit/Ml 10 Ml (Document Controller Use Only)) Confirm Administered Dose 10,000 units .ROUTE .[facility] ONE Stop: 07/07/21 08:41 Last Admin: 07/07/21 11:01 Dose: 8,000 units Documented by: [id number] Heparin Sodium/Sodium Chloride (Heparin In Nss Infusion 1000 Unit/500 Ml (2 U/Ml) Bag) Confirm Administered Dose 3,000 units IV .[facility] ONE Stop: 07/07/21 07:35 Last Admin: 07/07/21 08:37 Dose: 3,000 units Documented by: [id number] Lidocaine HCl (Lidocaine 1% Local 20 Ml Vial) Confirm Administered Dose 20 ml .ROUTE .[facility] ONE Stop: 07/07/21 07:36 Last Admin: 07/07/21 08:38 Dose: 20 ml Documented by: [id number] Midazolam HCl (Midazolam Hcl 1 Mg/Ml 2ml Vial) Confirm Administered Dose 2 mg .ROUTE .[facility] ONE Stop: 07/07/21 07:35 Last Admin: 07/07/21 08:38 Dose: 2 mg Documented by: [id number] Midazolam HCl (Midazolam Hcl 1 Mg/Ml 2ml Vial) Confirm Administered Dose 2 mg .ROUTE .[facility] ONE Stop: 07/07/21 10:02 Last Admin: 07/07/21 11:01 Dose: 1 mg Documented by: [id number] Nicardipine HCl (Nicardipine Hcl Inj 2.5 Mg/Ml 10 Ml Amp) Confirm Administered Dose 25 mg .ROUTE .STK-MED ONE Stop: 07/07/21 07:35 Last Admin: 07/07/21 08:38 Dose: 25 mg Documented by: [id number] Nitroglycerin/Dextrose (Nitroglycerin/D5w 100mcg/Ml 20ml Syr) Confirm Administered Dose 2,000 mcg .ROUTE .STK-MED ONE Stop: 07/07/21 07:36 Last Admin: 07/07/21 08:38 Dose: 2,000 mcg Documented by: [id number] ECG Rate (beats per minute): 78 Rhythm: normal sinus Code Status & VTE Plan Code Status FULL CODE VTE Prophylaxis Plan VTE Prophylaxis will be ordered: Yes Supervising Physician Co-Signing Physician Notes History and physical exam performed by me. History notable for 60-year-old man with chronic immunodeficiency syndrome, diabetes, hypertension, obesity, CKD 3 who presented for Cardiac catheterization following abnormal stress test. Patient was seen by cardiology outpatient as he has been having intermittent chest pain for the past year not related to activity, described this as burning in nature and not referred, increased weakness, chronic exertional dyspnea. Had dobutamine stress echo which demonstrated normal echocardiogram geographic findings but abnormal EKG stress response with ST-T depression observed in the inferior lateral leads, also had chest tightness at peak pharmacological stress. Patient referred for cardiac catheterization today. Cardiac catheterization today showed severe mid LAD disease, moderate mid RCA disease. Successful PCI of mid LAD with single drug-eluting stents. On exam General: Well nourished, well hydrated, +obese, no acute distress and not ill appearing Eyes: PERRL, conjunctivae normal, not pale, anicteric sclerae, EOM intact bilaterally ENMT: External ear and nose normal, oropharynx normal Respiratory: Normal respiratory effort, no respiratory distress, lungs clear to auscultation, no crackles and no wheezes Cardiovascular: RRR S1 S2. No pedal edema Gastrointestinal (Abdomen): Abdomen is distended (patient reported it has been increasing in size in months), soft, non-tender to palpation, no guarding, normal bowel sounds Musculoskeletal: No cyanosis or clubbing, all extremities motor strength 5/5 Neurologic: PERRL, EOMI, No focal weakness, sensation grossly intact Psychiatric: Alert and oriented x 3, euthymic affect, no depressed affect Coronary artery disease Status post cardiac catheterization with PCI to mid LAD with SHELIA Patient was loaded with Plavix in Document Controller Continue dual antiplatelet therapy Continue statin Consults cardiac rehab and cardiology Get CBC and BMP Continue home meds Agree with other plans as detailed by Laine Choudhury PA-C
[2021-07-07] MEDS: oxyCODONE HCL IR 5 MG TAB (IMMEDIATE RELEASE) PO PRN ×2 (13:37→20:01)
[2021-07-07] MEDS ORDERED: PROPRANOLOL HCL 10 MG TAB PO SCH (14:00)
[2021-07-07 14:32] LABS: Hematocrit (blood only) 45.5 % (42-52); Hemoglobin 14.8 g/dL (14.0-18.0); Mean Corpuscular Hemoglobin 29.5 pg (25-34); Mean Corpuscular Hgb Conc 32.5 g/dL (32-36); Mean Corpuscular Volume 90.6 fL (80-100); Mean Platelet Volume 11.4 fL (7.4-10.4); Platelet Count 199 K/uL (130-400); RDW Coefficient of Variation 15.4 % (11.5-14.5); RDW Standard Deviation 51.2 fL (36.4-46.3); Red Blood Count 5.02 M/uL (4.7-6.1); White Blood Count 11.86 K/uL (4.8-10.8)
[2021-07-07] MEDS ORDERED: INSULIN GLARGINE SOLOSTAR 100 UNITS/ML 3 ML PEN SC ONE (15:15)
--- NOTE | 2021-07-07 16:07 | Electrocardiogram Report ---
Test Reason : Blood Pressure : / mmHG Vent. Rate : 078 BPM Atrial Rate : 078 BPM P-R Int : 154 ms QRS Dur : 078 ms QT Int : 394 ms P-R-T Axes : 010 023 031 degrees QTc Int : 449 ms Normal sinus rhythm Normal ECG When compared with ECG of 28-SEP-2020 10:09, No significant change was found Confirmed by Willie Ryder ([id number]) on 07/07/2021 4:07:36 PM Referred By: Sylwia Sainz Confirmed By:Antoine Ryder
[2021-07-07] MEDS ORDERED: FINASTERIDE 5 MG TAB PO SCH (16:30)
[2021-07-07] MEDS: INSULIN ASPART PER UNIT SC SCH ×2 (17:36→19:56)
[2021-07-07] MEDS: GABAPENTIN 800 MG TAB PO SCH ×2 (17:38→23:08)
[2021-07-07] MEDS: INSULIN GLARGINE SOLOSTAR 100 UNITS/ML 3 ML PEN SC SCH (19:57)
[2021-07-07] MEDS: POTASSIUM CHLORIDE CRTAB 20 MEQ TABCR PO SCH (19:59)
[2021-07-07] MEDS: buPROPion SR 150 MG TABCR PO SCH (20:00)
[2021-07-07] MEDS: METHOCARBAMOL 750 MG TABLET PO SCH (20:00)
[2021-07-07] MEDS: FLUTICASONE PROPIONATE NA SPR 16 GM BTL NAE SCH (20:01)
[2021-07-07] MEDS ORDERED: FAMOTIDINE 20 MG TAB PO SCH (21:00)
[2021-07-07 21:41] LABS: BUN Creatinine Ratio 18.4 (10-20); Calcium 8.4 mg/dl (8.5-10.1); Creatinine Clr Calc Pharmacy 101.4 ml/min; Est GFR (African American) 89.8 ml/min; Est GFR (Non-African American) 77.5 ml/min; Potassium 3.8 mmol/L (3.5-5.1)
[2021-07-08] MEDS: oxyCODONE HCL IR 5 MG TAB (IMMEDIATE RELEASE) PO PRN (06:06)
[2021-07-08] MEDS: GABAPENTIN 800 MG TAB PO SCH ×2 (06:06→12:41)
[2021-07-08 06:47] LABS: Basophils # (auto) 0.05 K/uL (0-0.2); Basophils % (auto) 0.4 %; Eosinophils # (auto) 0.19 K/uL (0-0.5); Eosinophils % (auto) 1.4 %; Hematocrit (blood only) 46.7 % (42-52); Hemoglobin 14.8 g/dL (14.0-18.0); Immature Granulocytes # (auto) 0.08 K/uL (0.00-0.02); Immature Granulocytes % (auto) 0.6 %; Lymphocytes % (auto) 27.4 %; Mean Corpuscular Hemoglobin 28.6 pg (25-34); Mean Corpuscular Hgb Conc 31.7 g/dL (32-36); Mean Corpuscular Volume 90.2 fL (80-100); Monocytes # (auto) 1.32 K/uL (0.11-0.59); Monocytes % (auto) 9.5 %; Neutrophils # (auto) 8.43 K/uL (1.4-6.5); Neutrophils % (auto) 60.7 %; Platelet Count 205 K/uL (130-400); RDW Coefficient of Variation 15.4 % (11.5-14.5); RDW Standard Deviation 50.9 fL (36.4-46.3); Red Blood Count 5.18 M/uL (4.7-6.1); White Blood Count 13.87 K/uL (4.8-10.8)
[2021-07-08 06:57] LABS: BUN Creatinine Ratio 17.8 (10-20); Calcium 8.5 mg/dl (8.5-10.1); Chol HDL Ratio 4.6 (0-5); Creatinine Clr Calc Pharmacy 103.4 ml/min; Est GFR (Non-African American) 79.3 ml/min; Potassium 4.4 mmol/L (3.5-5.1)
[2021-07-08 07:58] LABS: Estimated Average Glucose 220 mg/dl; Hemoglobin A1C 9.3 % (4.5-5.6)
[2021-07-08] MEDS ORDERED: CEROVITE ADV FORMULA TAB PO SCH (09:00)
[2021-07-08] MEDS ORDERED: CLOPIDOGREL BISULFATE 75 MG TAB PO SCH (09:00)
[2021-07-08] MEDS ORDERED: PANTOprazole 40 MG TAB PO SCH (09:00)
[2021-07-08] MEDS ORDERED: TAMSULOSIN HCL 0.4 MG CAP PO SCH (09:00)
[2021-07-08] MEDS ORDERED: ROSUVASTATIN CALCIUM 20 MG TAB PO SCH (09:00)
[2021-07-08] MEDS ORDERED: METOPROLOL SUCC 25MG EXT REL TAB PO SCH (09:00)
[2021-07-08] MEDS ORDERED: ASPIRIN 81 MG ECTAB PO SCH (09:00)
[2021-07-08] MEDS ORDERED: FLUTICASONE/VILANTEROL 200/25MCG 14 PUFFS/INHALER INH SCH (09:00)
[2021-07-08] MEDS ORDERED: dilTIAZem HCL 240 MG CAPCR PO SCH (09:00)
[2021-07-08] MEDS ORDERED: DULoxetine HCL 30 MG CAP PO SCH (09:00)
[2021-07-08] MEDS ORDERED: ROFLUMILAST 500 MCG TAB PO SCH (09:00)
[2021-07-08] MEDS ORDERED: EZETIMIBE 10 MG TABLET PO SCH (09:00)
[2021-07-08] MEDS: POTASSIUM CHLORIDE CRTAB 20 MEQ TABCR PO SCH (09:03)
[2021-07-08] MEDS: buPROPion SR 150 MG TABCR PO SCH (09:03)
[2021-07-08] MEDS: METHOCARBAMOL 750 MG TABLET PO SCH (09:03)
[2021-07-08] MEDS: FLUTICASONE PROPIONATE NA SPR 16 GM BTL NAE SCH (09:04)
[2021-07-08] MEDS: INSULIN ASPART PER UNIT SC SCH ×2 (09:05→12:11)
[2021-07-08] MEDS: INSULIN GLARGINE SOLOSTAR 100 UNITS/ML 3 ML PEN SC SCH (09:06)
--- NOTE | 2021-07-08 13:04 | Cardiology Progress Note ---
Date of Service July 08, 2021 Assessment & Plan (1) CAD (coronary artery disease): (2) S/P cardiac cath: (3) Diabetes mellitus, type II: (4) COPD (chronic obstructive pulmonary disease): (5) Sleep apnea: (6) Tobacco use: Plan: Status post successful PCI to the mid LAD along with hemodynamically insignificant RCA lesion. Continue current medical regimen upon discharge. Will require dual antiplatelet therapy for at least 1 year. My office will call to follow-up with Dr. Greco as an outpatient. Okay to DC to home. Admission and Anticipated Discharge Date Admission Date: July 07, 2021 Subjective Patient seen and examined, chart reviewed. Currently states he feels great. Notes that chest discomfort and leg pain have resolved. Denies shortness of breath. Review of Systems Review of Systems: All systems reviewed & are unremarkable except as noted in HPI & below Physical Exam Physical Exam: General: Awake, alert and oriented x 3. No acute distress. HEENT: Normocephalic, atraumatic. Pupils equal, round and reactive to light and accommodation. Extraocular muscles are intact. Anicteric sclera. Moist mucous membranes. Neck: No JVD. No bruit. Cardiovascular: Regular. Positive S-4. Normal S-1 and S-2. No S-3. No murmurs or rubs. Pulmonary: Clear to auscultation B/L. No rales, rhonchi or wheezing Abdomen: Bowel sounds x 4, soft. No rebound, guarding or tenderness. No organomegaly. Extremities: No clubbing, cyanosis or edema. +2 pedal pulses bilaterally. Skin: Warm and dry. Results & Data ([facility]) Vital Signs (Past 12 Hours) Vital Signs Temp Pulse Pulse Pulse Resp BP Pulse Ox 07/08/21 12:18 36.4 C L 92 H 16 134/86 94 07/08/21 10:42 81 07/08/21 08:53 36.8 C 95 H 24 124/77 92 07/08/21 03:24 36.7 C 88 18 108/70 92
--- NOTE | 2021-07-08 13:21 | Pharmacy Report ---
Pharmacy Glycemic Short Note 2 - Date of Service July 08, 2021 - Glycemic Short BSG Results (Last 24 hours): 07/07/21 07/07/21 07/07/21 16:11 16:13 16:13 Glucose POC Glucose 254 H 220 H 210 H 07/07/21 07/08/21 07/08/21 19:27 06:00 07:20 Glucose 156 H 136 H POC Glucose 146 H 07/08/21 11:14 Glucose POC Glucose 174 H OUTPATIENT ANTIDIABETIC REGIMEN: * Lantus 37 units BID * Lispro 40-45 units with meals * Jardiance 25mg PO Daily ASSESSMENT: * 60 year old male, s/p cardiac cath, PMH significant for T2DM, HTN, HLD, CKD stage III, COPD, BPH, depression with anxiety, fatty liver disease, GERD, tobacco use. * Blood sugars well controlled on basal bolus insulin therapy initiated by pharmacy last night, continue parameters as below. PLAN FOR INPATIENT GLYCEMIC CONTROL: * Hold outpatient oral diabetes medications * Basal insulin * Lantus 27-37 units SQ BID (27 units for BSG < 140mg/dl, 37 units for BSG 140 or greater) * Bolus insulin * NovoLog per scale ACHS or Q6hrs while NPO * Goal Range: Low 110 mg/dL - High 140 mg/dL * Correction Factor: 18 mg/dL/unit * Nutritional / Prandial insulin per carb ratio of 1 unit per 6 grams CHO consumed
--- NOTE | 2021-07-08 13:24 | Hospitalist Progress Note ---
Date of Service July 08, 2021 Assessment & Plan (1) Abnormal stress test: (2) CAD (coronary artery disease): (3) S/P cardiac cath: (4) Diabetes mellitus, type II: (5) COPD (chronic obstructive pulmonary disease): Plan: Patient is a 60 yr male with H/O T2DM, HTN, HLD, CKD stage III, COPD, BPH, depression with anxiety, fatty liver disease, GERD, tobacco use who presented for elective diagnostic cardiac cath secondary to failed outpatient stress test. Abnormal stress test CAD S/P Cath:Severe mid LAD disease, Moderate mid RCA disease;Successful PCI of mid LAD with single drug-eluting stent Had abnormal stress test as outpatient and underwent elective diagnostic cardiac catheterization on 07/07/21 Continue ASA, Plavix, Crestor and metoprolol Started on Zetia as well Appreciate cardiology input Needs follow-up with cardiology upon discharge DM II Insulin-dependent Uncontrolled, last A1c 9.5 06/01/2021 Lantus/NovoLog per protocol Glycemic pharmacy consulted Needs follow up with PCP as outpatient COPD RAQUEL on 2L of O2 At HS continue home inhalers no signs of exacerbation HTN BP stable On diltiazem, metoprolol, Bumex Chronic back pain On oxycodone as needed, gabapentin, methocarbamol and Cymbalta Chronic leukocytosis Wbc 15-20k Follow up with PCP/Hematology as outpatient Currently no signs of infection Chronic tobacco use smokeless encourage cessation DVT Px: SCD/TEDS Code Status FULL CODE Admission and Anticipated Discharge Date Admission Date: July 07, 2021 Subjective Seen and examined at bedside Doing well today No new complaints No recurrence of chest pain Denies any nausea, vomiting, dyspnea, dizziness, abdominal pain Discussed with patient's family at bedside Also discussed with cardiology today Review of Systems Review of Systems: All systems reviewed & are unremarkable except as noted in Subjective Physical Exam Physical Exam: Physical Exam: Vitals signs as noted above General Appearance:Obese, no apparent distress Head: normocephalic, Atraumatic Eyes: normal inspection, EOMI Neck: supple, Trachea midline Respiratory/Chest: Normal breath sounds, CTA, No accessory muscle use Cardiovascular: S1, S2, No murmur Abdomen/GI:Soft, Non tender, Bowel sounds present Extremities/Musculoskeletal:normal inspection, Trace pedal edema Neurologic/Psych:AAOX3, grossly no focal neurological deficits Skin: normal color, warm Results & Data Results & Data ([facility]) Vital Signs (Past 12 Hours) Vital Signs Temp Pulse Pulse Pulse Resp BP Pulse Ox 07/08/21 12:18 36.4 C L 92 H 16 134/86 94 07/08/21 10:42 81 07/08/21 08:53 36.8 C 95 H 24 124/77 92 07/08/21 03:24 36.7 C 88 18 108/70 92 Laboratory Results Short CBC 07/08/21 Range/Units 06:00 WBC 13.87 H (4.8-10.8) K/uL Hgb 14.8 (14.0-18.0) g/dL Hct 46.7 (42-52) % Plt Count 205 (130-400) K/uL BMP 07/07/21 07/08/21 19:27 06:00 Sodium 140 140 Potassium 3.8 4.4 Chloride 108 H 109 H Carbon Dioxide 24 26 BUN 19 18 Creatinine 1.03 1.01 Glucose 156 H 136 H Calcium 8.4 L 8.5
--- NOTE | 2021-07-08 15:24 | Discharge Summary ---
Date of Service July 08, 2021 Admission HPI Per Admitting Provider This is a 60-year-old male who has significant past medical history of T2DM, HTN, HLD, CKD stage III, COPD, BPH, depression with anxiety, fatty liver disease, GERD, tobacco use who presented for elective diagnostic cardiac cath secondary to failed outpatient stress test. Patient underwent diagnostic catheterization by Dr. Greco and was found to have moderate RCA and mid LAD disease. Patient received 1 drug-eluting stent to LAD and plan is for admission for further cardiac monitoring. Procedure was w/o complication. He states he had an abn stress test as OP last week that lead to cath today. He has been getting off and on chest pain, substernal,described as burning "like heartburn," not radiating, assoc with SOB at rest and with walking. He does wear o2 at night. He denies recent f/c/s, palp, cough, uri sx, dizzy, lightheaded, n/v/d, abd pain, change in bowel or urinary habits. He denies alcohol or current tobacco use. He has +FH of DM and CAD. 2 brothers had RI when they were in their 60s. Post operatively he denies CP but is complaining of low back pain. He states LBP is chronic and he takes oxycodone for that. Admission Exam Per Admitting Provider On exam General: Well nourished, well hydrated, +obese, no acute distress and not ill appearing Eyes: PERRL, conjunctivae normal, not pale, anicteric sclerae, EOM intact bilaterally ENMT: External ear and nose normal, oropharynx normal Respiratory: Normal respiratory effort, no respiratory distress, lungs clear to auscultation, no crackles and no wheezes Cardiovascular: RRR S1 S2. No pedal edema Gastrointestinal (Abdomen): Abdomen is distended (patient reported it has been increasing in size in months), soft, non-tender to palpation, no guarding, normal bowel sounds Musculoskeletal: No cyanosis or clubbing, all extremities motor strength 5/5 Neurologic: PERRL, EOMI, No focal weakness, sensation grossly intact Psychiatric: Alert and oriented x 3, euthymic affect, no depressed affect Principal Diagnosis Coronary artery disease S/P Stent placement Discharge Data Allergies Allergy/AdvReac Type Severity Reaction Status Date / Time atenolol Allergy Severe DEPRESSION/ Verified 04/02/21 11:14 SUICIDAL amoxicillin Allergy Intermediate "SEVERE" Verified 04/02/21 11:14 DIARRHEA celecoxib Allergy Intermediate FLUID Verified 04/02/21 11:14 RETENTION-WT GAIN clavulanic acid Allergy Intermediate "SEVERE" Verified 04/02/21 11:14 DIARRHEA adhesive tape Allergy Mild Rash Verified 04/02/21 11:14 fluoxetine AdvReac Severe HALLUCINATI Verified 04/02/21 11:14 ONS Consultations 07/07/21 11:29 Consult Cardiac Rehabilitation Routine 07/07/21 12:29 Consult Cardiology Routine Procedures Performed Operation Date: 07/07/21 08:00 Actual Procedures p Cath, Left with Cors and Vent - David Greco, DO s Cineradiography w/Routine Exam - David Greco, DO s IVUS Coronary Single Vessel - Johnny Buckner MD s Fraction Flow [place] Addl Ves - Johnny Buckner MD s Fraction Flow [place] SGL Ves - Johnny Buckner MD p Drug Eluting Stent SGl Vessel - Johnny Buckner MD Ordered Studies 07/07/21 07:58 CL Cath Imgs for PACS use only Stat 07/07/21 11:18 CL IVUS Coronary Single Vessel Routine Diabetes Follow up Diabetes Follow-up Needed for HgbA1c >9% Hospital Course (1) Abnormal stress test: (2) CAD (coronary artery disease): (3) S/P cardiac cath: (4) Diabetes mellitus, type II: (5) COPD (chronic obstructive pulmonary disease): Patient is a 60 yr male with H/O T2DM, HTN, HLD, CKD stage III, COPD, BPH, depression with anxiety, fatty liver disease, GERD, tobacco use who presented for elective diagnostic cardiac cath secondary to failed outpatient stress test. Abnormal stress test CAD S/P Cath:Severe mid LAD disease, Moderate mid RCA disease;Successful PCI of mid LAD with single drug-eluting stent Had abnormal stress test as outpatient and underwent elective diagnostic cardiac catheterization on 07/07/21 Continue ASA, Plavix, Crestor and metoprolol Started on Zetia as well Appreciate cardiology input Needs follow-up with cardiology upon discharge DM II Insulin-dependent Uncontrolled, last A1c 9.5 06/01/2021 Lantus/NovoLog per protocol Glycemic pharmacy consulted Needs follow up with PCP as outpatient COPD RAQUEL on 2L of O2 At HS continue home inhalers no signs of exacerbation HTN BP stable On diltiazem, metoprolol, Bumex Chronic back pain On oxycodone as needed, gabapentin, methocarbamol and Cymbalta Chronic leukocytosis Wbc 15-20k Follow up with PCP/Hematology as outpatient Currently no signs of infection Chronic tobacco use smokeless encourage cessation DVT Px: SCD/TEDS Code Status FULL CODE Total Time Total Time Spent Total Time Spent (In Minutes): 48 minutes Discharge Plan Discharge Items Patient Disposition: Home - Self-Care Reason For Visit: CAD Discharge Diagnosis: Coronary artery disease S/P Stent placement Activity: Per Instructions section Exercise/Sports: Wait until after follow-up appointment Non-emergency contact: Primary Care Provider and Special Diet Cook Call non-emergency contact if: you have any medication questions, your symptoms worsen, your pain is concerning for you and you have a fever Follow-up/Referrals: Yann Fraga MD [Primary Care Provider] - (Date & Time 07/13/2021 2:00 PM Provider Yann Fraga MD [facility] ) Diet: Carb Consistent or DM2 and Heart Healthy Addtl Attending Provider Instructions: Follow-up with your primary care physician on 07/13/2021 2:00 PM Follow-up with your explosion welder in 2 weeks. Seek immediate medical attention if your symptoms reoccur or worsen Please take all medications as instructed on discharge list below. Please call if you have any questions or problems. You can reach a [facility] hospitalist on duty at [facility] 24 hours a day by calling [phone] Medication Changes: --- Your started on clopidogrel 75 mg daily as recommended by your explosion welder --- Your started on ezetimibe 10mg daily ---Your omeprazole is discontinued and your started on pantoprazole 40 mg daily as omeprazole has interaction with clopidogrel. --- Your Diclofenac is discontinued as your risk for bleeding increases if you take it along with aspirin, clopidogrel. Home Care: * Take your medications exactly as directed. Don't skip doses. * Remember that recovery after a heart attack takes time. Plan to rest for at lease 4-8 weeks while you recover. Then return to normal activity when your doctor says it's okay. * Ask your doctor about joining a heart rehabilitation program. * Tell your doctor if you are feeling depressed. Feelings of sadness are common after a heart attack, but it is important that you speak to someone if you are feeling overwhelmed by these feelings. * If you are having chest pain, call 911 for an ambulance. Do NOT drive yourself to the hospital. * Ask your family members to learn CPR. * Learn to take your own blood pressure and pulse. Keep a record of your results. Ask your doctor when you should seek emergency medical attention. He or she will tell you which blood pressure reading is dangerous. Lifestyle Changes: * Maintain a healthy weight. Get help to lose any extra pounds. * Cut back on salt. * Limit canned, dried, packaged, and fast foods. * Don't add salt to your food. * Season foods with herbs instead of salt when you cook. * Break the smoking habit. Enroll in a stop-smoking program to improve your chances of success. * Limit fatty foods. * Ask your doctor about having your lipid levels checked regularly. * Build up your activity according to your doctor's recommendation. * Ask your doctor when it's okay to resume sexual activity. * Tell your doctor about any erectile dysfunction (ED) medication you are taking. Some ED medications are not safe if you take certain heart medications. * Try to manage stress. Follow Up: It is important for you to keep your follow up appointments with your medical provider. Do not take group of medications belonging to NSAIDs group -can cause worsening of your kidney function or worsen your risk for bleeding List Of these medications includes but not limited to: Diclofenac Ibuprofen, Motrin, Advil Toradol,ketorolac Naproxen, Aleve, Naprosyn You can take Tylenol as needed for pain or fever When buying [id number]-pbqeyge pain medications please consult with pharmacy if you are not sure regarding ingredients, as a lot of the pain medications have combination of NSAIDs and Tylenol. Addtl Semiconductor Processing Technician Provider Instructions: ACTIVITY RECOMMENDATIONS: Excess manipulation of the wrist should be avoided for the next 24-48 hours. * No lifting over 2 pounds (approximately a 1/2 gallon of milk) with the utilized arm for 24 hours. * No strenuous activity such as bowling or tennis for 3 days. * Keep the site of the procedure covered with a bandage for 24 hours. *You may shower the day after the procedure. Do not take a tub bath or submerge the puncture site in water for the next 3 days. *Do not operate any motorized equipment for 3 days. SPECIAL CARE INSTRUCTIONS: The site may be slightly bruised and sore following your procedure. Should any of the following occur, contact the Dr. who performed your procedure. 1. Redness/inflammation, swelling, chills, or fever, or colored drainage at procedure site within 3-7 days after your procedure. 2. Coldness, discoloration, ongoing numbness, severe pain, or swelling. Expect mild tingling of hand and tenderness at the puncture site for up to three days. If this persists beyond three days, or other symptoms develop, notify the Dr. who performed your procedure. BLEEDING: If the procedure site on your wrist begins to bleed, do not panic 1. Place 1 or 2 fingers firmly just slightly above the insertion site to stop the bleeding. You may be able to feel your pulse as you hold pressure. 2. Lift your finger after 5 minutes to see if the bleeding has stopped. 3. Once the bleeding has stopped, gently wipe the wrist area clean with a bandage. * If the bleeding from your wrist does not stop after 10 minutes, or if there is a large amount of bleeding or spurting, call 911 (do not drive yourself to the hospital). SKIN IRRITATION: * You may experience some redness and/or swelling in the area where radiation was administered. If any skin irritation occurs, please contact your family physician. FOLLOW UP VISIT: Keep any scheduled doctor appointments. Pending Studies at Discharge: No Stand-Alone Forms: My [facility], Smoking Cessation Medications and DC Order Prescriptions: New clopidogrel 75 mg Tablet 75 mg PO QAM Qty: 30 RF: 1 pantoprazole 40 mg Tablet,Delayed Release (Dr/Ec) 40 mg PO QAM Qty: 30 RF: 1 ezetimibe 10 mg Tablet 10 mg PO QAM Qty: 30 RF: 1 Continued azelastine 137 mcg (0.1 %) aerosol,spray 1 sprays INTNAS BID Qty: 30 RF: 2 epinephrine 0.3 mg/0.3 mL auto-injector 0.3 mg IM Q20M PRN (Reason: anaphylaxis) Qty: 1 RF: 1 sodium chloride [[place] Saline] 0.65 % aerosol,spray 1 spray INTNAS BID PRN (Reason: dry nasal passages) Qty: 30 RF: 5 ipratropium bromide 42 mcg (0.06 %) spray,non-aerosol 2 spray intranasal DAILY PRN (Reason: Nasal Congestion) Qty: 15 RF: 3 Jardiance 10 mg tablet 25 mg PO DAILY RF: 0 diltiazem HCl 240 mg Capsule,Extended Release 24 Hr 240 mg PO QPM RF: 0 tamsulosin 0.4 mg Capsule 0.4 mg PO DAILY RF: 0 bupropion HCl [Wellbutrin SR] 150 mg Tablet Sustained-Release 12 Hr 150 mg PO BID RF: 0 fluticasone propionate [Flonase Allergy Relief] 50 mcg/actuation [place],Suspension 2 spray INTRANASAL BID RF: 0 albuterol sulfate [Ventolin HFA] 90 mcg/actuation Hfa Aerosol Inhaler 2 puff INHALATION Q6H PRN (Reason: Shortness Of Breath Or Wheezing) RF: 0 cyanocobalamin (vitamin B-12) 1,000 mcg Tablet, Sublingual 1,000 mcg SUBLINGUAL DAILY RF: 0 Lantus Solostar U-100 Insulin 100 unit/mL (3 mL) Insulin Pen 37 unit SUBCUT BID RF: 0 loperamide 2 mg capsule 2 mg PO BID PRN (Reason: Diarrhea) RF: 0 bumetanide 1 mg tablet 1 mg PO TID RF: 0 metoprolol succinate 25 mg tablet extended release 24 hr 37.5 mg PO DAILY RF: 0 rosuvastatin 40 mg tablet 40 mg PO DAILY RF: 0 albuterol sulfate 2.5 mg /3 mL (0.083 %) solution for nebulization 2.5 mg inhalation Q6H PRN (Reason: Shortness Of Breath) RF: 0 prednisone 10 mg tablet 10 mg PO DAILY PRN (Reason: Shortness Of Breath) RF: 0 naloxone 4 mg/actuation [place],Non-Aerosol 4 mg INTRANASAL UD RF: 0 oxycodone 10 mg Tablet 10 mg PO Q6H PRN (Reason: Pain) RF: 0 sodium chloride 7 % solution for nebulization 4 ml inhalation BID PRN (Reason: Shortness Of Breath) RF: 0 methocarbamol 750 mg Tablet 750 mg PO BID RF: 0 insulin lispro 100 unit/mL Solution 40 - 45 unit SUBCUT TIDWMEAL RF: 0 finasteride 5 mg tablet 5 mg PO QDD RF: 0 Breo Ellipta 200-25 mcg/dose Blister With Device 1 inh INHALATION DAILY RF: 0 gabapentin 600 mg tablet 800 mg PO Q6 RF: 0 ergocalciferol (vitamin D2) 50,000 unit Tablet 50,000 unit PO WK RF: 0 potassium chloride 20 mEq tablet extended release 20 meq PO BID RF: 0 magnesium 500 mg Tablet 500 mg PO DAILY RF: 0 hydroxyzine HCl 50 mg Tablet 50 mg PO TID PRN (Reason: Anxiety) RF: 0 nitroglycerin 0.4 mg Tablet, Sublingual See Rx Instructions .ROUTE .COMPLEX RF: 0 levofloxacin 500 mg Tablet 500 mg PO BID PRN (Reason: Respiratory Distress) RF: 0 duloxetine [Cymbalta] 30 mg Capsule,Delayed Release(Dr/Ec) 30 mg PO DAILY RF: 0 Daliresp 250 mcg Tablet 250 mcg PO DAILY RF: 0 PreserVision AREDS-2 1 dose PO DAILY RF: 0 famotidine [Acid Laundry Operator Wash Room (famotidine)] 20 mg tablet 20 mg PO HS RF: 0 aspirin [Aspirin Low Dose] 81 mg Tablet,Delayed Release (Dr/Ec) 81 mg PO QAM Qty: 30 RF: 1 Discontinued omeprazole 40 mg Capsule,Delayed Release(Dr/Ec) 40 mg PO DAILY RF: 0 diclofenac sodium [Voltaren] 75 mg Tablet,Delayed Release (Dr/Ec) 75 mg PO BID RF: 0 Discharge Orders: Discharge Order (Routine); Ordered 07/08/21 Ordered By: Geraldo Fisher Admission Data Admit Date/Time: 07/07/21 11:30 Attending Provider: Geraldo Fisher Admit Provider: Johnny Buckner Primary Care Provider: Yann Fraga Other Providers: David Greco Other Interventions: Discharge Summary Assessment (RN) Last Done: 07/08/21 13:41
== END 2021-07-08 15:00 | disposition home or self-care (01) ==
LOC: CC 06:42 → 2S 06:42 → SUATTDRO 11:30

== ENCOUNTER 2021-12-06 12:20 | Inpatient (IN) ==
[2021-12-06 13:23] LABS: Basophils # (auto) 0.12 K/uL (0-0.2); Basophils % (auto) 0.7 %; Eosinophils # (auto) 0.22 K/uL (0-0.50); Eosinophils % (auto) 1.3 %; Hematocrit (blood only) 49.2 % (40.1-51.0); Hemoglobin 16.7 g/dl (14.0-18.0); Immature Granulocytes # (auto) 0.09 K/uL (0.00-0.02); Immature Granulocytes % (auto) 0.5 %; Lymphocytes # (auto) 3.71 K/uL (1.2-3.4); Lymphocytes % (auto) 21.5 %; Mean Corpuscular Hemoglobin 28.1 pg (25.0-34.0); Mean Corpuscular Hgb Conc 33.9 g/dL (32.0-36.0); Mean Corpuscular Volume 82.8 fL (80.0-100.0); Mean Platelet Volume 11.5 fL (9.4-12.4); Monocytes # (auto) 1.58 K/uL (0.24-0.82); Monocytes % (auto) 9.2 %; Neutrophils # (auto) 11.53 K/uL (1.4-6.5); Neutrophils % (auto) 66.8 %; Platelet Count 357 K/uL (130-400); RDW Coefficient of Variation 13.7 % (11.5-14.5); RDW Standard Deviation 40.6 fL (36.4-46.3); Red Blood Count 5.94 M/uL (4.63-6.08); White Blood Count 17.25 K/ul (4.8-10.8)
[2021-12-06 13:35] LABS: Partial Thromboplastin Time 26.8 Seconds (21.0-31.0); Prothrombin Time 10.4 Seconds (9.0-12.0)
--- NOTE | 2021-12-06 13:43 | XRay Report ---
SINGLE VIEW CHEST CLINICAL HISTORY: Atypical chest pain. FINDINGS: An AP, portable, upright chest radiograph is compared to study dated 09/28/2020 and correlate d with chest CT dated 08/06/2020. The cardiomediastinal silhouette is unremarkable. There is chronic e levation of the right hemidiaphragm with bibasilar scarring/atelectasis. The lungs and pleural spaces are otherwise clear. No pneumothorax is seen. The bony thorax is grossly intact. IMPRESSION: No active disease in the chest. ACT 112: Negative or not required by law. Electronically signed by: Giorgio Millard M.D. 12/06/2021 1:42 PM
[2021-12-06 13:50] LABS: Troponin I High Sensitivity 8.4 pg/ml (0-20)
[2021-12-06 13:51] LABS: Alanine Aminotransferase 30 U/L (7-52); Albumin Globulin Ratio 1.2 (0.9-2); Albumin Level 4.1 gm/dl (3.4-5.0); Alkaline Phosphatase 90 U/L (34-104); Anion Gap 12 (3-11); Aspartate Aminotransferase 35 U/L (13-39); BUN Creatinine Ratio 12.8 (10-20); Bilirubin,Total 0.5 mg/dl (0.2-1.0); Blood Urea Nitrogen 14 mg/dl (6-23); Calcium 10.5 mg/dl (8.5-10.1); Carbon Dioxide 30 mmol/L (21-32); Chloride 97 mmol/L (98-107); Est GFR (African American) 83.3 ml/min; Est GFR (Non-African American) 71.9 ml/min; Globulin 3.3 gm/dl (2.5-4.0); Glucose 235 mg/dl (70-99(Fasting)); Lipase 16 U/L (11-82); Potassium 3.3 mmol/L (3.5-5.1); Sodium 139 mmol/L (136-145); Total Protein 7.4 gm/dl (6.0-8.3)
[2021-12-06] MEDS ORDERED: MoRPHine SULFATE 2 MG/ML CARP IV STA (13:57)
[2021-12-06] MEDS ORDERED: ONDANSETRON INJ 2 MG/ML 2 ML VIAL IV STA (13:57)
[2021-12-06] MEDS ORDERED: SODIUM CHLORIDE 0.9% 1000ML 500 ML IV ONE (13:57)
--- NOTE | 2021-12-06 14:02 | Emergency Department Note ---
Impression & Plan Acute UTI ADMIT ED Provider Note HPI: The patient is a 61-year-old gentleman with history of coronary artery disease, BPH With subsequent urinary retention, self catheterizes daily, presents the emergency department with multiple complaints. Patient states over the past 2 days he has had whole body myalgias.Patient states that he has had some intermittent chest pain that seems to worsen when he lays flat. Patient states that he has had whole body myalgias and generally just does not feel well. Complains of some mid abdominal pain. On arrival here to the ED the patient is tachycardic, he is otherwise with stable blood pressure and In no acute distress on my initial assessment. ROS: - General: Myalgias -GI: Abdominal pain - Cardio: Intermittent chest discomfort *10 point review systems was conducted and is otherwise negative unless stated above *Outpatient medications and allergy history reviewed PE: General: Alert, obese HEENT: Normocephalic, trachea midline Eyes: Extraocular eye movement is intact, no scleral erythema Pulmonary: Clear to auscultation bilaterally, no wheezing Cardio: Regular rate and rhythm GI: Abdomen is soft, moderate tenderness to palpation in the mid abdomen : No suprapubic tenderness MSK: No evidence of trauma or malformation of the extremities, no edema Skin: No evidence of rash Neuro: Alert, no focal deficits Psychiatric: Cooperative color television console monitor: - An order was placed for continuous cardiac monitoring - Patient was noted to be in Sinus rhythm with a rate of 116 EKG: Rate: 127 Rhythm: Sinus tachycardia Intervals: Within normal limits ST changes: No ST elevation Time: 1239 Interventions provided in ED: -IV fluid bolus, IV morphine, potassium, IV ceftriaxone Medical Decision Making: Patient presented to the emergency department with a chief complaint of whole body myalgias, stated he had some intermittent chest discomfort, later stated that he believed he had a urinary tract infection because he when he self catheterized himself his urine was very cloudy. On arrival here to the ED the patient was tachycardic but otherwise hemodynamically stable. IV was established, lab work obtained, patient was given IV fluids as well as morphine and Zofran for his symptoms. CT imaging of the abdomen pelvis was obtained that shows evidence of cystitis with what appears to be a sending urinary tract infection of the left ureter. This is consistent with the patient's history of obtaining cloudy urine when he self catheterized. His lab work also shows evidence of a leukocytosis greater than 17,000, blood cultures were drawn in the ED, lactic acid is within normal limits. CT imaging of the chest was obtained and shows no evidence of pulmonary embolism. In regards to the patient's transient episode of chest pain, he is currently chest pain-free, troponin is negative, EKG does not show any evidence of ST elevation, patient will be admitted for further care and trending of troponin. I suspect that the urinary tract infection as a source the patient's symptoms, his COVID-19 test is negative. I discussed the above findings with the on-call midlevel provider for the [facility] service and the patient was admitted in stable condition for further care. 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 COPD (chronic obstructive pulmonary disease) Costochondritis Depression Diabetes mellitus, type II IDDM Diabetic neuropathy Dyslipidemia GERD (gastroesophageal reflux disease) Grade II diastolic dysfunction Hearing deficit RIGHT EAR DEAF Heartburn HLD (hyperlipidemia) HTN (hypertension) Kidney stones Mood disorder Narcotic dependence Nasal septal deviation On anticoagulant therapy ASA 81MG Osteoarthritis Pneumonia MAY 2018 Seasonal allergies Sleep apnea 2LPM VIA N/C Steatosis of liver (Unknown) Tobacco use Ureteral stone Vasodepressor syncope Surgical History (Updated 12/06/21 @ 17:00 by Roxane Madison PA-C) History of colonoscopy History of esophagogastroduodenoscopy (EGD) History of lithotripsy Hx of transurethral resection of prostate S/P cardiac cath PCI to mid LAD S/P PICC central line placement WITH REMOVAL (JUNE 2018) Family History Grandmother Family history of diabetes mellitus Cancer Father Family history of high blood pressure FHx: heart disease Hypertension Sister Asthma Allergies Hypertension Mother Hearing loss Hypertension Uncle Hypertension Other Heart disease No family history of adverse response to anesthesia No family history of bleeding disorder Social History Smoking Status: Never smoker Tobacco Type: Smokeless Tobacco (Dip or Chew) Cigarettes Per Day: 1 can/2days; Second Hand Exposure: No; Do You Dip or Chew Tobacco: No; Tobacco Cessation Education Requested by Patient: No Hx Alcohol Use: No Hx Substance Use: No Preferred Language: Maldivian Communication Ability: Effective Visual Impairment: Limited 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 Beliefs That Will Affect Care: None marital status: Current Living Situation: Spouse Current Living Situation Comment: Home with spouse current occupational status: unemployed and disabled How many Children do You have: 3 Other Information That Helps Us Care for You: No Feels Safe at Home: Yes Safety Concerns: Feels Safe At This Time Assistive Devices: Oxygen - at Night and Wheelchair Allergies Allergies Allergy/AdvReac Type Severity Reaction Status Date / Time atenolol Allergy Severe DEPRESSION/ Verified 12/06/21 15:33 SUICIDAL amoxicillin Allergy Intermediate "SEVERE" Verified 12/06/21 15:33 DIARRHEA celecoxib Allergy Intermediate FLUID Verified 12/06/21 15:33 RETENTION-WT GAIN clavulanic acid Allergy Intermediate "SEVERE" Verified 12/06/21 15:33 DIARRHEA fentanyl Allergy Intermediate Rash Verified 12/06/21 15:33 adhesive tape Allergy Mild RASH--? Verified 12/06/21 15:33 ADHESIVE ALLERGY fluoxetine AdvReac Severe HALLUCINATI Verified 12/06/21 15:33 ONS Home Meds Home Medications Medication Instructions Recorded Confirmed fluticasone propionate 50 2 spray intranasal DAILY 03/15/18 12/06/21 mcg/actuation nasal spray,suspension (Flonase Allergy Relief) diltiazem HCl 240 mg capsule,24 240 mg PO QPM 06/12/18 12/06/21 hr,extended release tamsulosin 0.4 mg capsule 0.4 mg PO DAILY 12/10/18 12/06/21 oxycodone 10 mg tablet 10 mg PO Q6H PRN Pain 05/02/20 12/06/21 cyanocobalamin (vitamin B-12) 1,000 mcg sublingual DAILY 08/06/20 12/06/21 1,000 mcg sublingual tablet insulin glargine 100 unit/mL (3 37 unit subcut BID 08/06/20 12/06/21 mL) subcutaneous pen (Lantus Solostar U-100 Insulin) bumetanide 1 mg tablet 3 mg PO DAILY 08/18/20 12/06/21 loperamide 2 mg capsule 2 mg PO BID PRN Diarrhea 08/18/20 12/06/21 metoprolol succinate 25 mg 37.5 mg PO DAILY 08/18/20 12/06/21 tablet,extended release 24 hr naloxone 4 mg/actuation nasal spray 4 mg intranasal DIRECTED PRN 08/18/20 12/06/21 OVERSEDATION rosuvastatin 40 mg tablet 40 mg PO HS 08/18/20 12/06/21 finasteride 5 mg tablet 5 mg PO QAM 09/28/20 12/06/21 insulin lispro 100 unit/mL 40 - 45 unit subcut ACHS 09/28/20 12/06/21 subcutaneous solution methocarbamol 750 mg tablet 750 mg PO BID 09/28/20 12/06/21 potassium chloride 20 mEq 20 meq PO DAILY 09/28/20 12/06/21 tablet,extended release famotidine 20 mg tablet (Acid 20 mg PO HS 07/07/21 12/06/21 Rn Production (famotidine)) hydroxyzine HCl 50 mg tablet 50 mg PO TID PRN Anxiety 07/07/21 12/06/21 nitroglycerin 0.4 mg sublingual See Rx Instructions .Route .COMPLEX 07/07/21 12/06/21 tablet azelastine 137 mcg (0.1 %) nasal 2 sprays intranasal DAILY 12/06/21 12/06/21 spray aerosol dulaglutide 4.5 mg/0.5 mL 4.5 mg subcut WK 12/06/21 12/06/21 subcutaneous pen injector (Trulicity) ergocalciferol (vitamin D2) 1,250 1,250 mcg PO WK 12/06/21 12/06/21 mcg (50,000 unit) capsule (Vitamin D2) gabapentin 800 mg tablet 800 mg PO Q6H 12/06/21 12/06/21 glipizide 5 mg tablet, extended 5 mg PO DAILY 12/06/21 12/06/21 release 24 hr magnesium oxide 500 mg tablet 500 mg PO DAILY 12/06/21 12/06/21 oxycodone 30 mg tablet,crush 30 mg PO BID 12/06/21 12/06/21 resistant,extended release 12 hr terbinafine HCl 1 % topical cream 1 applic topical BID PRN NEEDED 12/06/21 12/06/21 ATHLETE'S FOOT vit C 250 mg-vit E 90 mg-zinc 40 1 tab PO DAILY 12/06/21 12/06/21 mg-copper 1 [id number] capsule (PreserVision AREDS-2) Previous Rx's Medication Instructions Recorded epinephrine 0.3 mg/0.3 mL 0.3 mg (0.3 mL) IM Q20M PRN 08/21/19 injection, auto-injector anaphylaxis #1 ea aspirin 81 mg tablet,delayed 81 mg PO QAM #30 tabs 07/08/21 release (Chari Low Dose Aspirin) clopidogrel 75 mg tablet 75 mg PO QAM #30 tabs 07/08/21 ezetimibe 10 mg tablet 10 mg PO QAM #30 tabs 07/08/21 albuterol sulfate 90 mcg/actuation 2 puff inhalation Q6H PRN 09/08/21 aerosol inhaler (Ventolin HFA) Shortness Of Breath Or Wheezing #8.5 grams Results & Data (ED) Vital Signs Vital Signs - 24 hr 12/06/21 12:28 12/06/21 13:09 12/06/21 13:32 Temperature 36.6 C Temperature Source Temporal Artery Scan Pulse Rate 126 H 124 H Pulse Rate [Right Finger] Pulse Rate from SpO2 Sensor 124 H Pulse Rhythm [Right Finger] Pulse Strength [Right Finger] Respiratory Rate 18 15 Respiratory Effort / Characteristics Non-Labored Spontaneous Respiratory Depth Normal Respiratory Pattern Regular Blood Pressure 122/80 134/95 Blood Pressure [Left Arm] Blood Pressure Mean 94 108 Blood Pressure Mean [Left Arm] Blood Pressure Position Sitting Pulse Oximetry 96 95 Oxygen Delivery Method Room Air Room Air Oxygen Flow Rate Sepsis Recent Fever Within 48 Hours No Sepsis New/Unexplained Change in Mental Status N/A Sepsis Action Taken by Nursing No Action Required 12/06/21 14:45 12/06/21 16:09 12/06/21 15:06 Temperature Temperature Source Pulse Rate 108 H Pulse Rate [Right Finger] 102 H Pulse Rate from SpO2 Sensor Pulse Rhythm [Right Finger] Pulse Strength [Right Finger] Respiratory Rate 24 22 Respiratory Effort / Characteristics Non-Labored Respiratory Depth Normal Respiratory Pattern Blood Pressure 116/84 Blood Pressure [Left Arm] 113/85 Blood Pressure Mean 94 Blood Pressure Mean [Left Arm] 94 Blood Pressure Position Pulse Oximetry 97 97 97 Oxygen Delivery Method Room Air Nasal Cannula Room Air Oxygen Flow Rate 2 Sepsis Recent Fever Within 48 Hours Sepsis New/Unexplained Change in Mental Status Sepsis Action Taken by Nursing 12/06/21 15:30 12/06/21 15:30 12/06/21 16:00 Temperature Temperature Source Pulse Rate 111 H 106 H 105 H Pulse Rate [Right Finger] Pulse Rate from SpO2 Sensor 106 H 104 H Pulse Rhythm [Right Finger] Pulse Strength [Right Finger] Respiratory Rate 20 16 16 Respiratory Effort / Characteristics Respiratory Depth Respiratory Pattern Blood Pressure 147/98 H Blood Pressure [Left Arm] Blood Pressure Mean 114 Blood Pressure Mean [Left Arm] Blood Pressure Position Pulse Oximetry 96 97 97 Oxygen Delivery Method Nasal Cannula Oxygen Flow Rate 2 Sepsis Recent Fever Within 48 Hours Sepsis New/Unexplained Change in Mental Status Sepsis Action Taken by Nursing 12/06/21 15:12 Temperature Temperature Source Pulse Rate Pulse Rate [Right Finger] 102 H Pulse Rate from SpO2 Sensor Pulse Rhythm [Right Finger] Regular Pulse Strength [Right Finger] Normal Respiratory Rate Respiratory Effort / Characteristics Respiratory Depth Respiratory Pattern Blood Pressure Blood Pressure [Left Arm] Blood Pressure Mean Blood Pressure Mean [Left Arm] Blood Pressure Position Pulse Oximetry Oxygen Delivery Method Oxygen Flow Rate Sepsis Recent Fever Within 48 Hours Sepsis New/Unexplained Change in Mental Status Sepsis Action Taken by Nursing Laboratory Data Result diagrams: 12/06/21 13:07 12/06/21 13:07 Lab Results 12/06/21 12/06/21 12/06/21 Range/Units 13:07 13:07 13:07 WBC 17.25 H (4.8-10.8) K/ul RBC 5.94 (4.63-6.08) M/uL Hgb 16.7 (14.0-18.0) g/dl Hct 49.2 (40.1-51.0) % MCV 82.8 (80.0-100.0) fL MCH 28.1 (25.0-34.0) pg MCHC 33.9 (32.0-36.0) g/dL RDW Std Deviation 40.6 (36.4-46.3) fL RDW Coeff of Leti 13.7 (11.5-14.5) % Plt Count 357 (130-400) K/uL MPV 11.5 (9.4-12.4) fL Immature Gran % (Auto) 0.5 % Neut % (Auto) 66.8 % Lymph % (Auto) 21.5 % Isabela % (Auto) 9.2 % Eos % (Auto) 1.3 % Baso % (Auto) 0.7 % Neut # (Auto) 11.53 H (1.4-6.5) K/uL Lymph # (Auto) 3.71 H (1.2-3.4) K/uL Isabela # (Auto) 1.58 H (0.24-0.82) K/uL Eos # (Auto) 0.22 (0-0.50) K/uL Baso # (Auto) 0.12 (0-0.2) K/uL Immature Gran # (Auto) 0.09 H (0.00-0.02) K/uL PT 10.4 (9.0-12.0) Seconds INR 1.0 (0.9-1.1) APTT 26.8 (21.0-31.0) Seconds PTT Ratio 1.0 Sodium 139 (136-145) mmol/L Potassium 3.3 L (3.5-5.1) mmol/L Chloride 97 L (98-107) mmol/L Carbon Dioxide 30 (21-32) mmol/L Anion Gap 12 H (3-11) BUN 14 (6-23) mg/dl Creatinine 1.09 (0.6-1.4) mg/dl Est Cr Clr Drug Dosing Not Reportable Est GFR ( Amer) 83.3 ml/min Est GFR (Non-Af Amer) 71.9 ml/min BUN/Creatinine Ratio 12.8 (10-20) Glucose 235 H (70-99(Fasting)) mg/dl Lactate (0.4-2.0) mmol/L Calcium 10.5 H (8.5-10.1) mg/dl Total Bilirubin 0.5 (0.2-1.0) mg/dl AST 35 (13-39) U/L ALT 30 (7-52) U/L Alkaline Phosphatase 90 (34-104) U/L Troponin I High Sens 8.4 (0-20) pg/ml Total Protein 7.4 (6.0-8.3) gm/dl Albumin 4.1 (3.4-5.0) gm/dl Globulin 3.3 (2.5-4.0) gm/dl Albumin/Globulin Ratio 1.2 (0.9-2) Lipase 16 (11-82) U/L Urine Color Urine Appearance (Clear) Urine pH (4.5-7.5) Ur Specific [place] (1.000-1.030) Urine Protein (Negative) Urine Glucose (UA) (Negative) Urine Ketones (Negative) Urine Blood (Negative) Urine Nitrite (Negative) Urine Bilirubin (Negative) Urine Urobilinogen (Negative) Ur Leukocyte Esterase (Negative) Urine WBC (Auto) (0-5) /hpf Urine RBC (Auto) (0-4) /hpf U Hyaline Cast (Auto) (0-5) /lpf U Epithel Cells (Auto) (0-5) /lpf Urine Bacteria (Auto) (Negative) Urine Yeast (None Prsent) SARS-CoV-2 (PCR) Influenza Type A (PCR) Influenza Type B (PCR) RSV (RT-PCR) 12/06/21 12/06/21 12/06/21 Range/Units 13:07 14:16 14:22 WBC (4.8-10.8) K/ul RBC (4.63-6.08) M/uL Hgb (14.0-18.0) g/dl Hct (40.1-51.0) % MCV (80.0-100.0) fL MCH (25.0-34.0) pg MCHC (32.0-36.0) g/dL RDW Std Deviation (36.4-46.3) fL RDW Coeff of Leti (11.5-14.5) % Plt Count (130-400) K/uL MPV (9.4-12.4) fL Immature Gran % (Auto) % Neut % (Auto) % Lymph % (Auto) % Isabela % (Auto) % Eos % (Auto) % Baso % (Auto) % Neut # (Auto) (1.4-6.5) K/uL Lymph # (Auto) (1.2-3.4) K/uL Isabela # (Auto) (0.24-0.82) K/uL Eos # (Auto) (0-0.50) K/uL Baso # (Auto) (0-0.2) K/uL Immature Gran # (Auto) (0.00-0.02) K/uL PT (9.0-12.0) Seconds INR (0.9-1.1) APTT (21.0-31.0) Seconds PTT Ratio Sodium (136-145) mmol/L Potassium (3.5-5.1) mmol/L Chloride (98-107) mmol/L Carbon Dioxide (21-32) mmol/L Anion Gap (3-11) BUN (6-23) mg/dl Creatinine (0.6-1.4) mg/dl Est Cr Clr Drug Dosing Est GFR ( Amer) ml/min Est GFR (Non-Af Amer) ml/min BUN/Creatinine Ratio (10-20) Glucose (70-99(Fasting)) mg/dl Lactate 1.9 (0.4-2.0) mmol/L Calcium (8.5-10.1) mg/dl Total Bilirubin (0.2-1.0) mg/dl AST (13-39) U/L ALT (7-52) U/L Alkaline Phosphatase (34-104) U/L Troponin I High Sens (0-20) pg/ml Total Protein (6.0-8.3) gm/dl Albumin (3.4-5.0) gm/dl Globulin (2.5-4.0) gm/dl Albumin/Globulin Ratio (0.9-2) Lipase (11-82) U/L Urine Color Yellow Urine Appearance Turbid A (Clear) Urine pH 6.5 (4.5-7.5) Ur Specific [place] 1.008 (1.000-1.030) Urine Protein 2+ H (Negative) Urine Glucose (UA) 1+ H (Negative) Urine Ketones Negative (Negative) Urine Blood 2+ H (Negative) Urine Nitrite Negative (Negative) Urine Bilirubin Negative (Negative) Urine Urobilinogen Negative (Negative) Ur Leukocyte Esterase 3+ H (Negative) Urine WBC (Auto) >30 H (0-5) /hpf Urine RBC (Auto) 0-4 (0-4) /hpf U Hyaline Cast (Auto) 0 (0-5) /lpf U Epithel Cells (Auto) >30 H (0-5) /lpf Urine Bacteria (Auto) 3+ H (Negative) Urine Yeast Present A (None Prsent) SARS-CoV-2 (PCR) Cancelled Influenza Type A (PCR) Cancelled Influenza Type B (PCR) Cancelled RSV (RT-PCR) Cancelled 12/06/21 Range/Units 14:22 WBC (4.8-10.8) K/ul RBC (4.63-6.08) M/uL Hgb (14.0-18.0) g/dl Hct (40.1-51.0) % MCV (80.0-100.0) fL MCH (25.0-34.0) pg MCHC (32.0-36.0) g/dL RDW Std Deviation (36.4-46.3) fL RDW Coeff of Leti (11.5-14.5) % Plt Count (130-400) K/uL MPV (9.4-12.4) fL Immature Gran % (Auto) % Neut % (Auto) % Lymph % (Auto) % Isabela % (Auto) % Eos % (Auto) % Baso % (Auto) % Neut # (Auto) (1.4-6.5) K/uL Lymph # (Auto) (1.2-3.4) K/uL Isabela # (Auto) (0.24-0.82) K/uL Eos # (Auto) (0-0.50) K/uL Baso # (Auto) (0-0.2) K/uL Immature Gran # (Auto) (0.00-0.02) K/uL PT (9.0-12.0) Seconds INR (0.9-1.1) APTT (21.0-31.0) Seconds PTT Ratio Sodium (136-145) mmol/L Potassium (3.5-5.1) mmol/L Chloride (98-107) mmol/L Carbon Dioxide (21-32) mmol/L Anion Gap (3-11) BUN (6-23) mg/dl Creatinine (0.6-1.4) mg/dl Est Cr Clr Drug Dosing Est GFR ( Amer) ml/min Est GFR (Non-Af Amer) ml/min BUN/Creatinine Ratio (10-20) Glucose (70-99(Fasting)) mg/dl Lactate (0.4-2.0) mmol/L Calcium (8.5-10.1) mg/dl Total Bilirubin (0.2-1.0) mg/dl AST (13-39) U/L ALT (7-52) U/L Alkaline Phosphatase (34-104) U/L Troponin I High Sens (0-20) pg/ml Total Protein (6.0-8.3) gm/dl Albumin (3.4-5.0) gm/dl Globulin (2.5-4.0) gm/dl Albumin/Globulin Ratio (0.9-2) Lipase (11-82) U/L Urine Color Urine Appearance (Clear) Urine pH (4.5-7.5) Ur Specific [place] (1.000-1.030) Urine Protein (Negative) Urine Glucose (UA) (Negative) Urine Ketones (Negative) Urine Blood (Negative) Urine Nitrite (Negative) Urine Bilirubin (Negative) Urine Urobilinogen (Negative) Ur Leukocyte Esterase (Negative) Urine WBC (Auto) (0-5) /hpf Urine RBC (Auto) (0-4) /hpf U Hyaline Cast (Auto) (0-5) /lpf U Epithel Cells (Auto) (0-5) /lpf Urine Bacteria (Auto) (Negative) Urine Yeast (None Prsent) SARS-CoV-2 (PCR) NEGATIVE Influenza Type A (PCR) Influenza Type B (PCR) RSV (RT-PCR) Administered Medications Oxycodone HCl (Oxycodone Hcl Ir 5 Mg Tab (Immediate Release)) 10 mg PO Q6H PRN PRN Reason: Pain Stop: 12/20/21 18:00 Last Admin: 12/06/21 18:39 Dose: 10 mg Documented By: ALLISON Discontinued Medications Sodium Chloride (Nss 1000ml) 500 mls @ 999 mls/hr IV .Q31M ONE Stop: 12/06/21 14:27 Last Infusion: 12/06/21 14:51 Dose: 0 mls/hr Documented By: Admin: 12/06/21 14:13 Dose: 999 mls/hr Documented By: DEBI Ceftriaxone Sodium (Rocephin) 2,000 mg in 70 mls @ 140 mls/hr IV NOW STA Stop: 12/06/21 15:36 Last Infusion: 12/06/21 16:01 Dose: 0 mls/hr Documented By: Admin: 12/06/21 15:24 Dose: 140 mls/hr Documented By: CHOLO Ioversol (Optiray 320 500ml) 111 ml IV ONCE ONE Stop: 12/06/21 14:37 Last Admin: 12/06/21 14:36 Dose: 111 ml Documented By: MILLER Morphine Sulfate (Morphine Sulfate 2 Mg/Ml Carp) 2 mg IV NOW STA Stop: 12/06/21 13:58 Last Admin: 12/06/21 14:17 Dose: 2 mg Documented By: DEBI Ondansetron HCl (Ondansetron Inj 2 Mg/Ml 2 Ml Vial) 4 mg IV NOW STA Stop: 12/06/21 13:58 Last Admin: 12/06/21 14:17 Dose: 4 mg Documented By: DEBI Potassium Chloride (Potassium Chloride Crtab 20 Meq Tabcr) 40 meq PO NOW STA Stop: 12/06/21 17:16 Last Admin: 12/06/21 18:31 Dose: 40 meq Documented By: ALLISON Imaging Data Radiologist's Impression: Chest X-Ray 12/06/21 12:44 SINGLE VIEW CHEST CLINICAL HISTORY: Atypical chest pain. FINDINGS: An AP, portable, upright chest radiograph is compared to study dated 09/28/2020 and correlated with chest CT dated 08/06/2020. The cardiomediastinal silhouette is unremarkable. There is chronic elevation of the right hemidiaphragm with bibasilar scarring/atelectasis. The lungs and pleural spaces are otherwise clear. No pneumothorax is seen. The bony thorax is grossly intact. IMPRESSION: No active disease in the chest. ACT 112: Negative or not required by law. Electronically signed by: Giorgio Millard M.D. 12/06/2021 1:42 PM Abdomen/Pelvis CT 12/06/21 13:59 CT ANGIOGRAM OF THE CHEST; CT SCAN OF THE ABDOMEN AND PELVIS WITH IV CONTRAST CLINICAL HISTORY: Dyspnea. Atypical chest pain. Generalized abdominal pain. COMPARISON STUDY: Chest CT dated 08/06/2020. Abdominal CT dated 08/18/2020. TECHNIQUE: Following the IV administration of 111 of Optiray 320, CT angiogram of the chest is performed from the upper abdomen to the thoracic inlet utilizing the pulmonary embolus protocol. Images are reviewed in the axial, sagittal, coronal planes. 3-D MIPS images are created and assessed. Subsequently, CT scan of the abdomen and pelvis was performed from the lung bases to the proximal fem ora. Images are reviewed in the axial, sagittal, and coronal planes. IV contrast was administered without complication. A dose lowering technique was utilized adhering to the principles of ALARA. CT DOSE: 2782.45 mGy.cm FINDINGS: CHEST: Thyroid: Imaged portions of the thyroid gland are normal in size and attenuation. Thoracic aorta: The thoracic aorta is normal in caliber and demonstrates standard 3-vessel arch anatomy. No dissection is seen. Pulmonary vasculature: The pulmonary trunk is normal in caliber. There are no filling defects identified in the main, lobar, or segmental pulmonary arteries to indicate pulmonary embolus. Heart: The heart is normal in size and without pericardial effusion. The coronary arteries are densely calcified. Lungs and pleural spaces: There is no airspace consolidation or pleural effusion. The trachea and central airways are clear. There is elevation of the right hemidiaphragm with mild bibasilar scarring/atelectasis. Mediastinum: There is no mediastinal lymphadenopathy. Abbi: Clear. Axillae: There is no axillary lymphadenopathy. Bony thorax: No lytic or blastic lesions are identified. ABDOMEN AND PELVIS: Liver: The contrast-enhanced liver is mildly enlarged measuring 18.3 cm in length. The liver demonstrates diffusely diminished attenuation indicating hepatic steatosis. There is no intrahepatic biliary ductal dilatation. The hepatic veins and portal veins are patent. Gallbladder: Unremarkable. Spleen: Normal in size and attenuation. Pancreas: Mildly atrophic and grossly unremarkable. Adrenal glands: Unremarkable. Kidneys: The contrast enhanced kidneys are normal in size and without hydronephrosis. The kidneys enhance symmetrically. There are tiny bilateral nonobstructing renal calculi. Urothelial thickening and enhancement is seen involving the distal left ureter. Abdominal vasculature: The abdominal aorta is normal in course and caliber noting moderate to advanced atherosclerotic calcification. Stomach and bowel: There is a tiny hiatal hernia. No bowel obstruction is seen. [id number] fecal retention is seen throughout the colon. A duodenal diverticulum is incidentally noted. The appendix is well-visualized and normal. Peritoneum: There is no intraperitoneal free air or abdominal ascites. There is a fat-containing umbilical hernia. Lymphadenopathy: None. Pelvic viscera: The prostate gland is diminutive versus surgically absent. The bladder wall is thickened and trabeculated. There is mucosal hyperemia and mild surrounding infiltration. Skeletal structures: No lytic or blastic lesions are seen. IMPRESSION: 1. There is no evidence of pulmonary embolus in the main, lobar, or segmental pulmonary arteries. 2. The lungs are clear. 3. Findings suggest cystitis with ascending urinary tract infection on the left. Correlate with clinical findings and urinalysis. 4. Hepatomegaly and hepatic steatosis. 5. Bilateral nephrolithiasis. 6. Additional findings as above. ACT 112: Negative or not required by law. Electronically signed by: Giorgio Millard M.D. 12/06/2021 3:03 PM Chest CTA 12/06/21 13:59 CT ANGIOGRAM OF THE CHEST; CT SCAN OF THE ABDOMEN AND PELVIS WITH IV CONTRAST CLINICAL HISTORY: Dyspnea. Atypical chest pain. Generalized abdominal pain. COMPARISON STUDY: Chest CT dated 08/06/2020. Abdominal CT dated 08/18/2020. TECHNIQUE: Following the IV administration of 111 of Optiray 320, CT angiogram of the chest is performed from the upper abdomen to the thoracic inlet utilizing the pulmonary embolus protocol. Images are reviewed in the axial, sagittal, coronal planes. 3-D MIPS images are created and assessed. Subsequently, CT scan of the abdomen and pelvis was performed from the lung bases to the proximal femora. Images are reviewed in the axial, sagittal, and coronal planes. IV contrast was administered without complication. A dose lowering technique was utilized adhering to the principles of ALARA. CT DOSE: 2782.45 mGy.cm FINDINGS: CHEST: Thyroid: Imaged portions of the thyroid gland are normal in size and attenuation. Thoracic aorta: The thoracic aorta is normal in caliber and demonstrates standard 3-vessel arch anatomy. No dissection is seen. Pulmonary vasculature: The pulmonary trunk is normal in caliber. There are no filling defects identified in the main, lobar, or segmental pulmonary arteries to indicate pulmonary embolus. Heart: The heart is normal in size and without pericardial effusion. The coronary arteries are densely calcified. Lungs and pleural spaces: There is no airspace consolidation or pleural effusion. The trachea and central airways are clear. There is elevation of the right hemidiaphragm with mild bibasilar scarring/atelectasis. Mediastinum: There is no mediastinal lymphadenopathy. Abbi: Clear. Axillae: There is no axillary lymphadenopathy. Bony thorax: No lytic or blastic lesions are identified. ABDOMEN AND PELVIS: Liver: The contrast-enhanced liver is mildly enlarged measuring 18.3 cm in length. The liver demonstrates diffusely diminished attenuation indicating hepatic steatosis. There is no intrahepatic biliary ductal dilatation. The hepatic veins and portal veins are patent. Gallbladder: Unremarkable. Spleen: Normal in size and attenuation. Pancreas: Mildly atrophic and grossly unremarkable. Adrenal glands: Unremarkable. Kidneys: The contrast enhanced kidneys are normal in size and without hydronephrosis. The kidneys enhance symmetrically. There are tiny bilateral nonobstructing renal calculi. Urothelial thickening and enhancement is seen involving the distal left ureter. Abdominal vasculature: The abdominal aorta is normal in course and caliber noting moderate to advanced atherosclerotic calcification. Stomach and bowel: There is a tiny hiatal hernia. No bowel obstruction is seen. [id number]-[id number]-xpsrpsew fecal retention is seen throughout the colon. A duodenal diverticulum is incidentally noted. The appendix is well-visualized and normal. Peritoneum: There is no intraperitoneal free air or abdominal ascites. There is a fat-containing umbilical hernia. Lymphadenopathy: None. Pelvic viscera: The prostate gland is diminutive versus surgically absent. The bladder wall is thickened and trabeculated. There is mucosal hyperemia and mild surrounding infiltration. Skeletal structures: No lytic or blastic lesions are seen. IMPRESSION: 1. There is no evidence of pulmonary embolus in the main, lobar, or segmental pulmonary arteries. 2. The lungs are clear. 3. Findings suggest cystitis with ascending urinary tract infection on the left. Correlate with clinical findings and urinalysis. 4. Hepatomegaly and hepatic steatosis. 5. Bilateral nephrolithiasis. 6. Additional findings as above. ACT 112: Negative or not required by law. Electronically signed by: Giorgio Millard M.D. 12/06/2021 3:03 PM Discharge Plan Visit Data Chief Complaint: Chest Pain Stated Complaint: BODY ACHES, CHEST PAIN ED Provider: Alexander Quinones Discharge Problem: Acute UTI Patient Disposition: Admitted As Inpatient Discharge Instructions Interventions: ED Discharge Assessment Last Done: 12/06/21 17:41
[2021-12-06] MEDS ORDERED: OPTIRAY 320 500ml IV ONE (14:36)
--- NOTE | 2021-12-06 15:04 | CT Scan Report ---
CT ANGIOGRAM OF THE CHEST; CT SCAN OF THE ABDOMEN AND PELVIS WITH IV CONTRAST CLINICAL HISTORY: Dyspnea. Atypical chest pain. Generalized abdominal pain. COMPARISON STUDY: Chest CT dated 08/06/2020. Abdominal CT dated 08/18/2020. TECHNIQUE: Following the IV administration of 111 of Optiray 320, CT angiogram of the chest is perfor med from the upper abdomen to the thoracic inlet utilizing the pulmonary embolus protocol. Images are reviewed in the axial, sagittal, coronal planes. 3-D MIPS images are created and assessed. Subsequen tly, CT scan of the abdomen and pelvis was performed from the lung bases to the proximal femora. Imag es are reviewed in the axial, sagittal, and coronal planes. IV contrast was administered without comp lication. A dose lowering technique was utilized adhering to the principles of ALARA. CT DOSE: 2782.45 mGy.cm FINDINGS: CHEST: Thyroid: Imaged portions of the thyroid gland are normal in size and attenuation. Thoracic aorta: The thoracic aorta is normal in caliber and demonstrates standard 3-vessel arch anato my. No dissection is seen. Pulmonary vasculature: The pulmonary trunk is normal in caliber. There are no filling defects identif ied in the main, lobar, or segmental pulmonary arteries to indicate pulmonary embolus. Heart: The heart is normal in size and without pericardial effusion. The coronary arteries are densel y calcified. Lungs and pleural spaces: There is no airspace consolidation or pleural effusion. The trachea and gabriela tral airways are clear. There is elevation of the right hemidiaphragm with mild bibasilar scarring/at electasis. Mediastinum: There is no mediastinal lymphadenopathy. Abbi: Clear. Axillae: There is no axillary lymphadenopathy. Bony thorax: No lytic or blastic lesions are identified. ABDOMEN AND PELVIS: Liver: The contrast-enhanced liver is mildly enlarged measuring 18.3 cm in length. The liver demonstr ates diffusely diminished attenuation indicating hepatic steatosis. There is no intrahepatic biliary ductal dilatation. The hepatic veins and portal veins are patent. Gallbladder: Unremarkable. Spleen: Normal in size and attenuation. Pancreas: Mildly atrophic and grossly unremarkable. Adrenal glands: Unremarkable. Kidneys: The contrast enhanced kidneys are normal in size and without hydronephrosis. The kidneys enh ance symmetrically. There are tiny bilateral nonobstructing renal calculi. Urothelial thickening and enhancement is seen involving the distal left ureter. Abdominal vasculature: The abdominal aorta is normal in course and caliber noting moderate to advance d atherosclerotic calcification. Stomach and bowel: There is a tiny hiatal hernia. No bowel obstruction is seen. Jxdw-ge-[id number] feca l retention is seen throughout the colon. A duodenal diverticulum is incidentally noted. The appendix is well-visualized and normal. Peritoneum: There is no intraperitoneal free air or abdominal ascites. There is a fat-containing umbi lical hernia. Lymphadenopathy: None. Pelvic viscera: The prostate gland is diminutive versus surgically absent. The bladder wall is thicke jose and trabeculated. There is mucosal hyperemia and mild surrounding infiltration. Skeletal structures: No lytic or blastic lesions are seen. IMPRESSION: 1. There is no evidence of pulmonary embolus in the main, lobar, or segmental pulmonary arteries. 2. The lungs are clear. 3. Findings suggest cystitis with ascending urinary tract infection on the left. Correlate with clini yolanda findings and urinalysis. 4. Hepatomegaly and hepatic steatosis. 5. Bilateral nephrolithiasis. 6. Additional findings as above. ACT 112: Negative or not required by law. Electronically signed by: Giorgio Millard M.D. 12/06/2021 3:03 PM
[2021-12-06] MEDS ORDERED: cefTRIAXone SODIUM 2,000 MG/70 ML BAG IV STA (15:07)
[2021-12-06 15:32] LABS: Appearance Urine Turbid (Clear); Bilirubin Urine Negative (Negative); Blood Urine 2+ (Negative); Color Urine Yellow; Epithelial Cell Urine Auto >30 /lpf (0-5); Glucose Urine UA 1+ (Negative); Ketones Urine Negative (Negative); Leukocyte Esterase Urine 3+ (Negative); Nitrite Urine Negative (Negative); Protein Urine 2+ (Negative); RBC Urine Automated 0-4 /hpf (0-4); Specific Gravity Urine 1.008 (1.000-1.030); Urobilinogen Urine Negative (Negative); WBC Urine Automated >30 /hpf (0-5); pH Urine 6.5 (4.5-7.5)
--- NOTE | 2021-12-06 15:37 | History & Physical Report ---
Date of Service December 06, 2021 Assessment & Plan (1) Complicated UTI (urinary tract infection): Plan: Pt with ongoing issues with recurrent UTI for which he follows with Dr. Valdivia at [facility] urology. Recent cystoscopy on 11/17/21 with significant detrusor failure precluding complete bladder emptying. Pt has been following recommendation to cath 5-6x/day with irrigation in between but does not feel like this has helped. Today, presents to the ED with recurrent UTI symptoms - found to have leukocytosis and imaging consistent with ascending UTI. Urine culture pending but UA abnormal. Pt meets sepsis criteria, lactate <2. - Admit to PCU - Continue ceftriaxone while awaiting cultures - Consult urology - Daily labs - Galeano cath placement (2) Sepsis: Plan: See plan for #1 (3) Hypokalemia: Plan: Given oral KCl in ED - Continue outpatient dosing - Check mag - Labs in AM (4) CAD (coronary artery disease): Plan: Ongoing chest pain for the last 2-3 months (intermittent) - Repeat EKG now and in AM - Trend troponin (5) RAQUEL (obstructive sleep apnea): Plan: - Continue nocturnal O2 (6) COPD (chronic obstructive pulmonary disease): (7) Diabetes mellitus, type II: Plan: Significant insulin requirements at home but still poorly controlled - Initial insulin orders place but pharmacy consulted to assist with glycemic management - Pt has CGM in place and has brought his meter for glucose monitoring as needed - A1c in AM (8) Benign prostatic hyperplasia with urinary obstruction: (9) HLD (hyperlipidemia): (10) Anxiety: Plan Pt seen and reviewed with collaborating physician, Dr. Basurto. Plan of care discussed and as outlined above. Pt's updated at the bedside. All questions answered. Continue other home meds as appropriate Code Status: full code DVT prophylaxis: SCDs for now, if no urologic intervention planned, would consider starting lovenox Nicholas Madison PA-C History of Present Illness Chief Complaint: worsening pain and possible bladder infection Primary Care Provider: Yann Fraga MD This is a 61 y/o male with a PMH of BPH s/p TURP with ongoing issues with urinary retention, insulin-requiring DM2 with associated neuropathy, CAD s/p PCI in 07/11 to mid LAD, COPD, HTN, dyslipidemia, CVID, chronic pain with chronic narcotic use, sleep apnea on 2L O2 HS, kidney stones, and seasonal allergies who presents to the ED today with worsening of chronic pain and possible UTI. Pt has had ongoing issues with recurrent UTIs and urinary retention for which he follows with urology. He underwent TURP but continues to have retention for which he is currently straight catheterizing 5-6x/day with irrigation in between. He reports that sometimes they are able to get urine back but other times they are not. When he is able to cath successfully with urine return, he feels better than when he cannot. This morning, when his did his first cath, she noted resistance, blood with small clots in the urine, and white sediment in the urine with an associated foul odor. They have also noted worsening hyperglycemia with fasting sugars in the morning often over 300. He does have a CGM for blood glucose monitoring. He also notes ongoing issues with intermittent chest pain, which he reports having discussed with cardiology at his last follow-up visit. He is on oxycodone for chronic pain, which his PCP recently attempted to transition to a long-acting formulation for better pain control but there were insurance coverage issues so he is continuing to use Oxy IR prn instead. He is minimally ambulatory at baseline, typically requiring a wheelchair although he is able to use his walker at times. His assists with his care at home. He reports ongoing leg weakness at home since the TURP. He also notes generalized weakness and fatigue that waxes and wanes. He denies documented fever, chills, or URI symptoms. No N/V/D. No blood in stool. Allergies Allergy/AdvReac Type Severity Reaction Status Date / Time atenolol Allergy Severe DEPRESSION/ Verified 12/06/21 15:33 SUICIDAL amoxicillin Allergy Intermediate "SEVERE" Verified 12/06/21 15:33 DIARRHEA celecoxib Allergy Intermediate FLUID Verified 12/06/21 15:33 RETENTION-WT GAIN clavulanic acid Allergy Intermediate "SEVERE" Verified 12/06/21 15:33 DIARRHEA fentanyl Allergy Intermediate Rash Verified 12/06/21 15:33 adhesive tape Allergy Mild RASH--? Verified 12/06/21 15:33 ADHESIVE ALLERGY fluoxetine AdvReac Severe HALLUCINATI Verified 12/06/21 15:33 ONS Home Medications Medication Instructions Recorded Confirmed Type fluticasone propionate 50 2 spray intranasal DAILY 03/15/18 12/06/21 History mcg/actuation nasal spray,suspension (Flonase Allergy Relief) diltiazem HCl 240 mg capsule,24 240 mg PO QPM 06/12/18 12/06/21 History hr,extended release tamsulosin 0.4 mg capsule 0.4 mg PO DAILY 12/10/18 12/06/21 History epinephrine 0.3 mg/0.3 mL 0.3 mg (0.3 mL) IM Q20M PRN 08/21/19 12/06/21 Rx injection, auto-injector anaphylaxis #1 ea oxycodone 10 mg tablet 10 mg PO Q6H PRN Pain 05/02/20 12/06/21 History cyanocobalamin (vitamin B-12) 1,000 mcg sublingual DAILY 08/06/20 12/06/21 History 1,000 mcg sublingual tablet insulin glargine 100 unit/mL (3 37 unit subcut BID 08/06/20 12/06/21 History mL) subcutaneous pen (Lantus Solostar U-100 Insulin) bumetanide 1 mg tablet 3 mg PO DAILY 08/18/20 12/06/21 History loperamide 2 mg capsule 2 mg PO BID PRN Diarrhea 08/18/20 12/06/21 History metoprolol succinate 25 mg 37.5 mg PO DAILY 08/18/20 12/06/21 History tablet,extended release 24 hr naloxone 4 mg/actuation nasal spray 4 mg intranasal DIRECTED PRN 08/18/20 12/06/21 History OVERSEDATION rosuvastatin 40 mg tablet 40 mg PO HS 08/18/20 12/06/21 History finasteride 5 mg tablet 5 mg PO QAM 09/28/20 12/06/21 History insulin lispro 100 unit/mL 40 - 45 unit subcut ACHS 09/28/20 12/06/21 History subcutaneous solution methocarbamol 750 mg tablet 750 mg PO BID 09/28/20 12/06/21 History potassium chloride 20 mEq 20 meq PO DAILY 09/28/20 12/06/21 History tablet,extended release famotidine 20 mg tablet (Acid 20 mg PO HS 07/07/21 12/06/21 History Software Implementation Specialist (famotidine)) hydroxyzine HCl 50 mg tablet 50 mg PO TID PRN Anxiety 07/07/21 12/06/21 History nitroglycerin 0.4 mg sublingual See Rx Instructions .Route .COMPLEX 07/07/21 12/06/21 History tablet aspirin 81 mg tablet,delayed 81 mg PO QAM #30 tabs 07/08/21 12/06/21 Rx release (Chari Low Dose Aspirin) clopidogrel 75 mg tablet 75 mg PO QAM #30 tabs 07/08/21 12/06/21 Rx ezetimibe 10 mg tablet 10 mg PO QAM #30 tabs 07/08/21 12/06/21 Rx albuterol sulfate 90 mcg/actuation 2 puff inhalation Q6H PRN 09/08/21 12/06/21 Rx aerosol inhaler (Ventolin HFA) Shortness Of Breath Or Wheezing #8.5 grams azelastine 137 mcg (0.1 %) nasal 2 sprays intranasal DAILY 12/06/21 12/06/21 History spray aerosol dulaglutide 4.5 mg/0.5 mL 4.5 mg subcut WK 12/06/21 12/06/21 History subcutaneous pen injector (Trulicity) ergocalciferol (vitamin D2) 1,250 1,250 mcg PO WK 12/06/21 12/06/21 History mcg (50,000 unit) capsule (Vitamin D2) gabapentin 800 mg tablet 800 mg PO Q6H 12/06/21 12/06/21 History glipizide 5 mg tablet, extended 5 mg PO DAILY 12/06/21 12/06/21 History release 24 hr magnesium oxide 500 mg tablet 500 mg PO DAILY 12/06/21 12/06/21 History oxycodone 30 mg tablet,crush 30 mg PO BID 12/06/21 12/06/21 History resistant,extended release 12 hr terbinafine HCl 1 % topical cream 1 applic topical BID PRN NEEDED 12/06/21 12/06/21 History ATHLETE'S FOOT vit C 250 mg-vit E 90 mg-zinc 40 1 tab PO DAILY 12/06/21 12/06/21 History mg-copper 1 [id number] capsule (PreserVision AREDS-2) Past Med/Surg History Medical History (Updated 12/06/21 @ 19:42 by Alexander Quinones DO) Anxiety Benign prostatic hyperplasia with urinary obstruction BPH (benign prostatic hyperplasia) CAD (coronary artery disease) Cervical disc disorder Chronic bronchitis Chronic neck pain Chronic rhinitis Chronic sinusitis, unspecified 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 COPD (chronic obstructive pulmonary disease) Costochondritis Depression Diabetes mellitus, type II IDDM Diabetic neuropathy Dyslipidemia GERD (gastroesophageal reflux disease) Grade II diastolic dysfunction Hearing deficit RIGHT EAR DEAF Heartburn HLD (hyperlipidemia) HTN (hypertension) Kidney stones Mood disorder Narcotic dependence Nasal septal deviation On anticoagulant therapy ASA 81MG Osteoarthritis Pneumonia MAY 2018 Seasonal allergies Sleep apnea 2LPM VIA N/C Steatosis of liver (Unknown) Tobacco use Ureteral stone Vasodepressor syncope Surgical History (Updated 12/06/21 @ 17:00 by Roxane Madison PA-C) History of colonoscopy History of esophagogastroduodenoscopy (EGD) History of lithotripsy Hx of transurethral resection of prostate S/P cardiac cath PCI to mid LAD S/P PICC central line placement WITH REMOVAL (JUNE 2018) Family History Grandmother Family history of diabetes mellitus Cancer Father Family history of high blood pressure FHx: heart disease Hypertension Sister Asthma Allergies Hypertension Mother Hearing loss Hypertension Uncle Hypertension Other Heart disease No family history of adverse response to anesthesia No family history of bleeding disorder Social History Smoking Status: Never smoker Tobacco Type: Smokeless Tobacco (Dip or Chew) Cigarettes Per Day: 1 can/2days; Second Hand Exposure: No; Do You Dip or Chew Tobacco: No; Tobacco Cessation Education Requested by Patient: No Hx Alcohol Use: No Hx Substance Use: No Preferred Language: [place] Communication Ability: Effective Visual Impairment: Limited Is Analyst Required: No Beliefs That Will Affect Care: None marital status: Current Living Situation: Spouse Current Living Situation Comment: Home with spouse current occupational status: unemployed and disabled How many Children do You have: 3 Other Information That Helps Us Care for You: No Feels Safe at Home: Yes Safety Concerns: Feels Safe At This Time Assistive Devices: Oxygen - at Night and Wheelchair Review of Systems Review of Systems: All systems reviewed & are unremarkable except as noted in HPI & below Constitutional: + fatigue, + weakness and + anorexia Ear, Nose, Mouth, Throat: no nasal congestion, no nasal discharge and no sore throat Respiratory: + dyspnea on exertion (chronic); no cough Cardiovascular: + chest pain and + lightheadedness (with position changes); no syncope Gastrointestinal: no nausea, no vomiting, no diarrhea/loose stools and no blood in stools Genitourinary: + as per Subjective / HPI Musculoskeletal: + myalgia and + muscle weakness Integumentary: no yellowing of the skin Neurologic: + unsteadiness and + generalized weakness; no confusion Physical Exam Constitutional: well developed and well nourished; no acute distress Eyes: + anicteric sclerae Neck: trachea midline Respiratory: no respiratory distress and no labored breathing Auscultation: + diminished lung sounds; no wheezes Cardiovascular: Rate/Rhythm: regular rate and regular rhythm Vessels: dorsalis pedis pulses present and radial pulses present Extremities: no pedal edema Gastrointestinal (Abdomen): Inspection/Auscultation: normal bowel sounds; abdomen not distended Percussion/Palpation: abdomen soft; abdomen nontender Musculoskeletal: Head/Neck/Chest: normocephalic, head atraumatic and neck supple Skin: no jaundice Neurologic: moves all extremities; no focal motor deficits and not confused Psychiatric: A+Ox3, euthymic affect Results & Data Results & Data ([facility]) Vital Signs (Past 12 Hours) Vital Signs Temp Pulse Pulse Resp BP BP Pulse Ox 12/06/21 14:45 102 H 24 113/85 97 12/06/21 13:32 124 H 15 134/95 95 12/06/21 13:09 12/06/21 12:28 36.6 C 126 H 18 122/80 96 O2 Del Method 12/06/21 14:45 Room Air 12/06/21 13:32 12/06/21 13:09 Room Air 12/06/21 12:28 Room Air Laboratory Results Laboratory Results - last 24 hr 12/06/21 12/06/21 12/06/21 13:07 13:07 13:07 WBC 17.25 H RBC 5.94 Hgb 16.7 Hct 49.2 MCV 82.8 MCH 28.1 MCHC 33.9 RDW Std Deviation 40.6 RDW Coeff of Leti 13.7 Plt Count 357 MPV 11.5 Immature Gran % (Auto) 0.5 Neut % (Auto) 66.8 Lymph % (Auto) 21.5 Humphreys % (Auto) 9.2 Eos % (Auto) 1.3 Baso % (Auto) 0.7 Neut # (Auto) 11.53 H Lymph # (Auto) 3.71 H Humphreys # (Auto) 1.58 H Eos # (Auto) 0.22 Baso # (Auto) 0.12 Immature Gran # (Auto) 0.09 H PT 10.4 INR 1.0 APTT 26.8 PTT Ratio 1.0 Sodium 139 Potassium 3.3 L Chloride 97 L Carbon Dioxide 30 Anion Gap 12 H BUN 14 Creatinine 1.09 Est Cr Clr Drug Dosing Not Reportable Est GFR ( Amer) 83.3 Est GFR (Non-Af Amer) 71.9 BUN/Creatinine Ratio 12.8 Glucose 235 H Lactate Calcium 10.5 H Total Bilirubin 0.5 AST 35 ALT 30 Alkaline Phosphatase 90 Troponin I High Sens 8.4 Total Protein 7.4 Albumin 4.1 Globulin 3.3 Albumin/Globulin Ratio 1.2 Lipase 16 Urine Color Urine Appearance Urine pH Ur Specific Sumrall Urine Protein Urine Glucose (UA) Urine Ketones Urine Blood Urine Nitrite Urine Bilirubin Urine Urobilinogen Ur Leukocyte Esterase SARS-CoV-2 (PCR) Influenza Type A (PCR) Influenza Type B (PCR) RSV (RT-PCR) 12/06/21 12/06/21 12/06/21 13:07 14:16 14:22 WBC RBC Hgb Hct MCV MCH MCHC RDW Std Deviation RDW Coeff of Leti Plt Count MPV Immature Gran % (Auto) Neut % (Auto) Lymph % (Auto) Humphreys % (Auto) Eos % (Auto) Baso % (Auto) Neut # (Auto) Lymph # (Auto) Humphreys # (Auto) Eos # (Auto) Baso # (Auto) Immature Gran # (Auto) PT INR APTT PTT Ratio Sodium Potassium Chloride Carbon Dioxide Anion Gap BUN Creatinine Est Cr Clr Drug Dosing Est GFR ( Amer) Est GFR (Non-Af Amer) BUN/Creatinine Ratio Glucose Lactate 1.9 Calcium Total Bilirubin AST ALT Alkaline Phosphatase Troponin I High Sens Total Protein Albumin Globulin Albumin/Globulin Ratio Lipase Urine Color Pending Urine Appearance Pending Urine pH Pending Ur Specific Sumrall Pending Urine Protein Pending Urine Glucose (UA) Pending Urine Ketones Pending Urine Blood Pending Urine Nitrite Pending Urine Bilirubin Pending Urine Urobilinogen Pending Ur Leukocyte Esterase Pending SARS-CoV-2 (PCR) Pending Influenza Type A (PCR) Pending Influenza Type B (PCR) Pending RSV (RT-PCR) Pending Diagnostic Findings Chest X-ray 12/06/21 - IMPRESSION: No active disease in the chest. CTA Chest/CT Abd/Pel 12/06/21 - IMPRESSION: 1. There is no evidence of pulmonary embolus in the main, lobar, or segmental pulmonary arteries. 2. The lungs are clear. 3. Findings suggest cystitis with ascending urinary tract infection on the left. Correlate with clinical findings and urinalysis. 4. Hepatomegaly and hepatic steatosis. 5. Bilateral nephrolithiasis. 6. Additional findings as above. Medications Administered Ceftriaxone Sodium (Rocephin) 2,000 mg in 70 mls @ 140 mls/hr IV NOW STA Stop: 12/06/21 15:36 Last Admin: 12/06/21 15:24 Dose: 140 mls/hr Documented By: CHOLO Discontinued Medications Sodium Chloride (Nss 1000ml) 500 mls @ 999 mls/hr IV .Q31M ONE Stop: 12/06/21 14:27 Last Infusion: 12/06/21 14:51 Dose: 0 mls/hr Documented By: Admin: 12/06/21 14:13 Dose: 999 mls/hr Documented By: DEBI Ioversol (Optiray 320 500ml) 111 ml IV ONCE ONE Stop: 12/06/21 14:37 Last Admin: 12/06/21 14:36 Dose: 111 ml Documented By: MILLER Morphine Sulfate (Morphine Sulfate 2 Mg/Ml Carp) 2 mg IV NOW STA Stop: 12/06/21 13:58 Last Admin: 12/06/21 14:17 Dose: 2 mg Documented By: DEBI Ondansetron HCl (Ondansetron Inj 2 Mg/Ml 2 Ml Vial) 4 mg IV NOW STA Stop: 12/06/21 13:58 Last Admin: 12/06/21 14:17 Dose: 4 mg Documented By: DEBI Supervising Physician Co-Signing Physician Notes 61-year-old male with PMH of BPH status post TURP with ongoing issues with urinary retention needing intermittent self-catheterization, T2DM insulin requiring associated with neuropathy, CAD status post PCI, COPD, HTN, HLD, CVID, chronic pain with chronic narcotic use, sleep apnea on 2 L O2 at bedtime, kidney stones presented to our ED 12/06/2021 with complaint of generalized body pain since 3 days ago FASHION ADVISER and right flank pain since 2 days ago FASHION ADVISER. Patient reports blood in urine with catheterization in the morning of arrival, also noted white sediment in the urine and associated foul odor. Patient reports left flank pain ongoing for 2 days, gradually worsening. Patient denies fever chills or sore throat or cough. Patient reports low belly pain. Patient reports decreasing appetite and feeling weak. Admitting labs with elevated WBC, potassium 3.3. Lactate 1.9. EKG poor quality, will repeat EKG. Patient with no chest pain, troponin WNL. Lipase WNL. Admitting imagings with Findings suggest cystitis with ascending urinary tract infection on the left. Likely sepsis secondary to developing pyelonephritis on the left, urology consult placed and contacted, appreciate recs, galeano cath him, continue with Rocephin started in the ED, blood and urine culture, IV fluids when NPO, NPO until uro eval in AM, monitor and replete electrolytes. Upon examination: GENERAL: Alert and oriented x3. NAD, on 2L NC O2, obese class II. HEENT: No pallor, no icterus. Pupils equal, round and reactive to light. Oral mucosa moist. NECK: No JVD, no neck masses. HEART: S1 and S2 heard. tachycardia, sinus. No murmur, no gallop. RESPIRATORY SYSTEM: Normal AP diameter. No accessory muscle use. No wheezing, no crackles. ABDOMEN: Soft, bowel sounds present, lower abd/left flank tender, no distention. CENTRAL NERVOUS SYSTEM: No facial droop. Speech is clear. Obeys simple commands. Moves extremities. EXTREMITIES: No edema, no erythema seen. Left CVA tender I have seen and examined the patient and have discussed the case with the provider above. I agree with the assessment and plan as stated.
[2021-12-06 15:44] LABS: Bacteria Urine Automated 3+ (Negative); Cast Urine Automated 0 /lpf (0-5)
--- NOTE | 2021-12-06 15:45 | Electrocardiogram Report ---
Test Reason : Blood Pressure : / mmHG Vent. Rate : 127 BPM Atrial Rate : 127 BPM P-R Int : 146 ms QRS Dur : 076 ms QT Int : 292 ms P-R-T Axes : 067 052 -78 degrees QTc Int : 424 ms Poor data quality, interpretation may be adversely affected Sinus tachycardia Abnormal ECG When compared with ECG of 07-JUL-2021 11:45, Vent. rate has increased BY [address] now depressed in Anterolateral leads T wave inversion now evident in Inferior leads T wave inversion now evident in Anterolateral leads Confirmed by Luke Bonner ([id number]) on 12/06/2021 3:45:29 PM Referred By: Confirmed By:Luke Bonenr
[2021-12-06] MEDS ORDERED: POTASSIUM CHLORIDE CRTAB 20 MEQ TABCR PO STA (17:15)
[2021-12-06] MEDS ORDERED: DEXTROSE 50% 50 ML SYRINGE IV PRN (18:01)
[2021-12-06] MEDS ORDERED: GLUCOSE 10 TAB/TUBE PO PRN (18:01)
[2021-12-06] MEDS ORDERED: GLUCAGON FOR INJ 1 MG VIAL SQ PRN (18:01)
[2021-12-06] MEDS ORDERED: GLUCOSE 40% GEL 15 GM TUBE PO PRN (18:01)
[2021-12-06] MEDS ORDERED: PHARMACY GLYCEMIC MGMT CONSULT PRN (18:01)
[2021-12-06] MEDS ORDERED: ACETAMINOPHEN 325 MG TAB PO PRN (18:01)
[2021-12-06] MEDS ORDERED: CARBOHYDRATES FOR HYPOGLYCEMIA PO PRN (18:01)
[2021-12-06] MEDS: oxyCODONE HCL IR 5 MG TAB (IMMEDIATE RELEASE) PO PRN (18:39)
[2021-12-06 20:10] LABS: Troponin I High Sensitivity 7.9 pg/ml (0-20)
[2021-12-06 20:18] LABS: Magnesium 1.7 mg/dl (1.7-2.4)
[2021-12-06] MEDS: GABAPENTIN 800 MG TAB PO SCH (20:32)
[2021-12-06] MEDS: METHOCARBAMOL 750 MG TABLET PO SCH (20:33)
[2021-12-06] MEDS: FAMOTIDINE 20 MG TAB PO SCH (20:33)
[2021-12-06] MEDS: ROSUVASTATIN CALCIUM 20 MG TAB PO SCH (20:33)
[2021-12-06] MEDS ORDERED: dilTIAZem HCL 240 MG CAPCR PO SCH (21:00)
[2021-12-06] MEDS ORDERED: LANTUS PER UNIT CHARGE SQ ONE (21:00)
[2021-12-06] MEDS ORDERED: INSULIN ASPART PER UNIT SC SCH (21:00)
[2021-12-06] MEDS ORDERED: oxyCODONE HCL 15 MG TABCR (OxyCONTIN) PO SCH (21:00)
[2021-12-07] MEDS: GABAPENTIN 800 MG TAB PO SCH ×5 (00:49→23:57)
[2021-12-07] MEDS: oxyCODONE HCL IR 5 MG TAB (IMMEDIATE RELEASE) PO PRN ×4 (01:07→22:10)
[2021-12-07 01:58] LABS: Basophils # (auto) 0.12 K/uL (0-0.2); Basophils % (auto) 0.8 %; Eosinophils # (auto) 0.28 K/uL (0-0.50); Eosinophils % (auto) 1.9 %; Hematocrit (blood only) 47.1 % (40.1-51.0); Hemoglobin 15.5 g/dl (14.0-18.0); Immature Granulocytes # (auto) 0.07 K/uL (0.00-0.02); Immature Granulocytes % (auto) 0.5 %; Lymphocytes # (auto) 3.56 K/uL (1.2-3.4); Mean Corpuscular Hemoglobin 27.9 pg (25.0-34.0); Mean Corpuscular Hgb Conc 32.9 g/dL (32.0-36.0); Mean Corpuscular Volume 84.7 fL (80.0-100.0); Mean Platelet Volume 11.3 fL (9.4-12.4); Monocytes # (auto) 1.63 K/uL (0.24-0.82); Neutrophils # (auto) 9.16 K/uL (1.4-6.5); Neutrophils % (auto) 61.8 %; Platelet Count 295 K/uL (130-400); RDW Coefficient of Variation 13.7 % (11.5-14.5); RDW Standard Deviation 42.4 fL (36.4-46.3); Red Blood Count 5.56 M/uL (4.63-6.08); White Blood Count 14.82 K/ul (4.8-10.8)
[2021-12-07] MEDS: INSULIN ASPART PER UNIT SC SCH ×5 (02:14→21:06)
[2021-12-07 02:28] LABS: BUN Creatinine Ratio 15.3 (10-20); Calcium 9.8 mg/dl (8.5-10.1); Creatinine Clr Calc Pharmacy 103.4 ml/min; Est GFR (African American) 94.7 ml/min; Est GFR (Non-African American) 81.7 ml/min; Potassium 3.9 mmol/L (3.5-5.1)
[2021-12-07 07:21] LABS: Estimated Average Glucose 249 mg/dl; Hemoglobin A1C 10.3 % (4.5-5.6)
--- NOTE | 2021-12-07 08:30 | Urology Consultation ---
Date of Consultation December 07, 2021 Assessment & Plan (1) Acute UTI: (2) Hematuria: Plan 61yo M admitted with sepsis/UTI and gross hematuria. CT a/p on admission suggestive of cystitis with ascending urinary tract infection on the left. Dent catheter placed on admission. - Gross hematuria likely due to catheter trauma, UTI. - Pt is afebrile, normotensive but tachycardic. - Labs reviewed - WBC 14.82, hemoglobin 15.5, Creatinine 0.98. - Urine and blood cultures pending. - On IV Ceftriaxone, follow cultures. - No plan for urological intervention at this time. - OK to have diet back from standpoint. - Maintain Dent catheter, continue to monitor closely. - Continue with hand irrigation as needed for clots, retention, suprapubic pain. - Will reassess this afternoon. - Pt reassessed this afternoon - Dent catheter intact, draining clear yellow urine in tubing. No clots noted on exam. - Maintain Dent catheter, continue to monitor closely. - Continue with hand irrigation as needed for clots, retention, or suprapubic pain. - Urology will follow. History of Present Illness Reason for Consultation: Developing pyelonephritis, hematuria Attending Physician: David Ortega MD History of Present Illness 61-year-old male with PMHx of BPH s/p TURP with ongoing issues with urinary ret ention needing intermittent self-catheterization, T2DM insulin requiring associated with neuropathy, CAD status post PCI, COPD, HTN, HLD, CVID, chronic pain with chronic narcotic use, sleep apnea, and kidney stones admitted with sepsis/UTI and gross hematuria. Urology consulted for developing pyelonephritis, hematuria. Per chart review, pt with ongoing issues with recurrent UTI for which he follows with Dr. Valdivia at [facility] urology. Recent cystoscopy on 11/17/21 with significant detrusor failure precluding complete bladder emptying. Pt had been following recommendation to cath 5-6x/day with irrigation in between. However, he recently noted resistance when trying to self catheterize and also some blood with small clots in his urine. CT abdomen pelvis - 1. There is no evidence of pulmonary embolus in the main, lobar, or segmental pulmonary arteries. 2. The lungs are clear. 3. Findings suggest cystitis with ascending urinary tract infection on the left. Correlate with clinical findings and urinalysis. 4. Hepatomegaly and hepatic steatosis. 5. Bilateral nephrolithiasis. Patient examined at bedside. Awake, resting in bed on arrival. No acute distress. Dent catheter intact, draining pink-tinged urine. Per nursing, catheter required hand irrigation overnight x2 and also noted to have decreased urine output. Documented urine output overnight 800 mL. This morning nursing irrigated without difficulty and no clots were noted. Pt was bladder scanned for 0ml. He denies any pain or discomfort at present. Allergies Allergy/AdvReac Type Severity Reaction Status Date / Time atenolol Allergy Severe DEPRESSION/ Verified 12/06/21 15:33 SUICIDAL amoxicillin Allergy Intermediate "SEVERE" Verified 12/06/21 15:33 DIARRHEA celecoxib Allergy Intermediate FLUID Verified 12/06/21 15:33 RETENTION-WT GAIN clavulanic acid Allergy Intermediate "SEVERE" Verified 12/06/21 15:33 DIARRHEA fentanyl Allergy Intermediate Rash Verified 12/06/21 15:33 adhesive tape Allergy Mild RASH--? Verified 12/06/21 15:33 ADHESIVE ALLERGY fluoxetine AdvReac Severe HALLUCINATI Verified 12/06/21 15:33 ONS Home Medications Medication Instructions Recorded Confirmed Type fluticasone propionate 50 2 spray intranasal DAILY 03/15/18 12/06/21 History mcg/actuation nasal spray,suspension (Flonase Allergy Relief) diltiazem HCl 240 mg capsule,24 240 mg PO QPM 06/12/18 12/06/21 History hr,extended release tamsulosin 0.4 mg capsule 0.4 mg PO DAILY 12/10/18 12/06/21 History epinephrine 0.3 mg/0.3 mL 0.3 mg (0.3 mL) IM Q20M PRN 08/21/19 12/06/21 Rx injection, auto-injector anaphylaxis #1 ea oxycodone 10 mg tablet 10 mg PO Q6H PRN Pain 05/02/20 12/06/21 History cyanocobalamin (vitamin B-12) 1,000 mcg sublingual DAILY 08/06/20 12/06/21 History 1,000 mcg sublingual tablet insulin glargine 100 unit/mL (3 37 unit subcut BID 08/06/20 12/06/21 History mL) subcutaneous pen (Lantus Solostar U-100 Insulin) bumetanide 1 mg tablet 3 mg PO DAILY 08/18/20 12/06/21 History loperamide 2 mg capsule 2 mg PO BID PRN Diarrhea 08/18/20 12/06/21 History metoprolol succinate 25 mg 37.5 mg PO DAILY 08/18/20 12/06/21 History tablet,extended release 24 hr naloxone 4 mg/actuation nasal spray 4 mg intranasal DIRECTED PRN 08/18/20 12/06/21 History OVERSEDATION rosuvastatin 40 mg tablet 40 mg PO HS 08/18/20 12/06/21 History finasteride 5 mg tablet 5 mg PO QAM 09/28/20 12/06/21 History insulin lispro 100 unit/mL 40 - 45 unit subcut ACHS 09/28/20 12/06/21 History subcutaneous solution methocarbamol 750 mg tablet 750 mg PO BID 09/28/20 12/06/21 History potassium chloride 20 mEq 20 meq PO DAILY 09/28/20 12/06/21 History tablet,extended release famotidine 20 mg tablet (Acid 20 mg PO HS 07/07/21 12/06/21 History Technical Project Coordinator (famotidine)) hydroxyzine HCl 50 mg tablet 50 mg PO TID PRN Anxiety 07/07/21 12/06/21 History nitroglycerin 0.4 mg sublingual See Rx Instructions .Route .COMPLEX 07/07/21 12/06/21 History tablet aspirin 81 mg tablet,delayed 81 mg PO QAM #30 tabs 07/08/21 12/06/21 Rx release (Chari Low Dose Aspirin) clopidogrel 75 mg tablet 75 mg PO QAM #30 tabs 07/08/21 12/06/21 Rx ezetimibe 10 mg tablet 10 mg PO QAM #30 tabs 07/08/21 12/06/21 Rx albuterol sulfate 90 mcg/actuation 2 puff inhalation Q6H PRN 09/08/21 12/06/21 Rx aerosol inhaler (Ventolin HFA) Shortness Of Breath Or Wheezing #8.5 grams azelastine 137 mcg (0.1 %) nasal 2 sprays intranasal DAILY 12/06/21 12/06/21 History spray aerosol dulaglutide 4.5 mg/0.5 mL 4.5 mg subcut WK 12/06/21 12/06/21 History subcutaneous pen injector (Trulicity) ergocalciferol (vitamin D2) 1,250 1,250 mcg PO WK 12/06/21 12/06/21 History mcg (50,000 unit) capsule (Vitamin D2) gabapentin 800 mg tablet 800 mg PO Q6H 12/06/21 12/06/21 History glipizide 5 mg tablet, extended 5 mg PO DAILY 12/06/21 12/06/21 History release 24 hr magnesium oxide 500 mg tablet 500 mg PO DAILY 12/06/21 12/06/21 History terbinafine HCl 1 % topical cream 1 applic topical BID PRN NEEDED 12/06/21 12/06/21 History ATHLETE'S FOOT vit C 250 mg-vit E 90 mg-zinc 40 1 tab PO DAILY 12/06/21 12/06/21 History mg-copper 1 [id number] capsule (PreserVision AREDS-2) Patient History Medical History Anxiety Benign prostatic hyperplasia with urinary obstruction BPH (benign prostatic hyperplasia) CAD (coronary artery disease) Cervical disc disorder Chronic bronchitis Chronic neck pain Chronic rhinitis Chronic sinusitis, unspecified 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 COPD (chronic obstructive pulmonary disease) Costochondritis Depression Diabetes mellitus, type II IDDM Diabetic neuropathy Dyslipidemia GERD (gastroesophageal reflux disease) Grade II diastolic dysfunction Hearing deficit RIGHT EAR DEAF Heartburn HLD (hyperlipidemia) HTN (hypertension) Kidney stones Mood disorder Narcotic dependence Nasal septal deviation On anticoagulant therapy ASA 81MG Osteoarthritis Pneumonia MAY 2018 Seasonal allergies Sleep apnea 2LPM VIA N/C Steatosis of liver (Unknown) Tobacco use Ureteral stone Vasodepressor syncope Surgical History History of colonoscopy History of esophagogastroduodenoscopy (EGD) History of lithotripsy Hx of transurethral resection of prostate S/P cardiac cath PCI to mid LAD S/P PICC central line placement WITH REMOVAL (JUNE 2018) Family History Grandmother Family history of diabetes mellitus Cancer Father Family history of high blood pressure FHx: heart disease Hypertension Sister Asthma Allergies Hypertension Mother Hearing loss Hypertension Uncle Hypertension Other Heart disease No family history of adverse response to anesthesia No family history of bleeding disorder Social History Smoking Status: Never smoker Tobacco Type: Smokeless Tobacco (Dip or Chew) Cigarettes Per Day: 1 can/2days; Second Hand Exposure: No; Do You Dip or Chew Tobacco: No; Tobacco Cessation Education Requested by Patient: No Hx Alcohol Use: No Hx Substance Use: No Preferred Language: Grenadian Communication Ability: Effective Visual Impairment: Limited Gravity Flow Irrigator Required: No Beliefs That Will Affect Care: None marital status: Current Living Situation: Spouse Current Living Situation Comment: Home with spouse current occupational status: unemployed and disabled How many Children do You have: 3 Other Information That Helps Us Care for You: No Feels Safe at Home: Yes Safety Concerns: Feels Safe At This Time Assistive Devices: Wheelchair Review of Systems Review of Systems: All systems reviewed & are unremarkable except as noted in HPI & below Physical Exam Constitutional: well developed and well nourished; no acute distress Eyes: PERRL, conjunctivae normal, anicteric sclerae ENMT: external ear and nose normal, oropharynx normal Neck: normal visual inspection Respiratory: no respiratory distress and no labored breathing Gastrointestinal (Abdomen): Inspection/Auscultation: abdomen normal to inspection Percussion/Palpation: abdomen soft; abdomen nontender Musculoskeletal: Head/Neck/Chest: normocephalic Skin: No visible rashes or lesions to exposed skin areas Neurologic: moves all extremities and awake Psychiatric: Orientation: alert, oriented x 3 and cooperative Genitourinary: Dent catheter intact, draining pink tinged urine Results & Data ([facility]) Vital Signs (Past 12 Hours) Vital Signs Temp Pulse Pulse Resp BP Pulse Ox O2 Del Method 12/07/21 03:10 36.7 C 100 H 16 142/93 H 93 Nasal Cannula 12/07/21 02:19 89 L Nasal Cannula 12/07/21 01:54 92 H 12/06/21 22:59 Nasal Cannula 12/06/21 22:28 36.9 C 95 H 18 131/95 93 Nasal Cannula O2 Flow Rate 12/07/21 03:10 4 12/07/21 02:19 2 12/07/21 01:54 12/06/21 22:59 2 12/06/21 22:28 2 PG Care Time/CCT Total # of Minutes Spent Total Time Spent with Patient: Total time spent is greater than 50% in coordination of care (as documented) at patient's floor/unit and/or counseling patient: Coding Level of Care Code 23002 Inpt Consult Level 3 Diagnoses Acute UTI N39.0 Hematuria R31.9
[2021-12-07] MEDS: dilTIAZem HCL 240 MG CAPCR PO SCH (08:52)
[2021-12-07] MEDS: METOPROLOL SUCC 25MG EXT REL TAB PO SCH (08:52)
[2021-12-07] MEDS: ASPIRIN 81 MG ECTAB PO SCH (08:53)
[2021-12-07] MEDS: CLOPIDOGREL BISULFATE 75 MG TAB PO SCH (08:53)
[2021-12-07] MEDS: FINASTERIDE 5 MG TAB PO SCH (08:53)
[2021-12-07] MEDS: MAGNESIUM OXIDE 400 MG TAB PO SCH (08:53)
[2021-12-07] MEDS: TAMSULOSIN HCL 0.4 MG CAP PO SCH (08:53)
[2021-12-07] MEDS: CYANOCOBALAMIN (B-12) 500 MCG TABLET PO SCH (08:54)
[2021-12-07] MEDS: AZELASTINE HCL 0.1% NASAL 200 SPRAYS/27,400 MCG BTL SCH (08:54)
[2021-12-07] MEDS: EZETIMIBE 10 MG TABLET PO SCH (08:55)
[2021-12-07] MEDS: POTASSIUM CHLORIDE CRTAB 20 MEQ TABCR PO SCH (08:55)
[2021-12-07] MEDS: METHOCARBAMOL 750 MG TABLET PO SCH ×2 (08:55→20:14)
[2021-12-07] MEDS: FLUTICASONE PROPIONATE NA SPR 16 GM BTL SCH (08:56)
[2021-12-07] MEDS ORDERED: BUMETANIDE 1 MG TAB PO SCH (09:00)
[2021-12-07] MEDS ORDERED: LANTUS PER UNIT CHARGE SQ SCH (09:00)
--- NOTE | 2021-12-07 09:03 | Electrocardiogram Report ---
Test Reason : Blood Pressure : / mmHG Vent. Rate : 104 BPM Atrial Rate : 104 BPM P-R Int : 144 ms QRS Dur : 082 ms QT Int : 356 ms P-R-T Axes : 053 019 035 degrees QTc Int : 468 ms Sinus tachycardia Diffuse Minor Nonspecific T wave abnormality Abnormal ECG When compared with ECG of 06-DEC-2021 12:39, T wave inversion no longer evident in Inferior leads Nonspecific T wave abnormality has replaced inverted T waves in Anterolateral leads Confirmed by Luke Bonner ([id number]) on 12/07/2021 9:02:39 AM Referred By: REFERRED SELF Confirmed By:Luke Bonner
--- NOTE | 2021-12-07 09:10 | Pharmacy Report ---
Pharmacy Glycemic Short Note 2 - Date of Service December 07, 2021 - Glycemic Short BSG Results (Last 24 hours): 12/06/21 12/06/21 12/07/21 13:07 20:12 00:48 Glucose 235 H POC Glucose 254 H 231 H 12/07/21 12/07/21 12/07/21 01:28 02:03 05:54 Glucose 235 H POC Glucose 224 H 223 H 12/07/21 07:37 Glucose POC Glucose 211 H OUTPATIENT ANTIDIABETIC REGIMEN: * Lantus 37 units SC BID * Novolog 38 units SC w/ breakfast, 35 units SC w/ lunch, and 35 units SC w/ dinner * Trulicity 4.5 mg SC weekly on Sundays HbA1c: 10.3% (12/07/21) ASSESSMENT: * RM is a 61 year old male admitted for presumed urosepsis (recent cystoscopy on 11/17/21) w/ significant detrusor failure inhibiting complete bladder emptying. Currently receiving ceftriaxone. * BSGs elevated on presentation (> 200 mg/dL) w/ fasting BSG of 223 mg/dL this morning * Received home dose of basal insulin yesterday * Originally NPO after midnight, now ordered a diet - will give ~80% of total daily basal now with overnight checks PLAN FOR INPATIENT GLYCEMIC CONTROL: * Basal insulin * Lantus 60 units (30 units x 2 this morning and at lunchtime) * Reassess in AM * Bolus insulin * NovoLog per scale ACHS or Q6hrs while NPO * Goal Range: Low 110 mg/dL - High 140 mg/dL * Correction Factor: 15 mg/dL/unit * Nutritional / Prandial insulin per carb ratio of 1 unit per 5 grams CHO co nsumed
[2021-12-07] MEDS ORDERED: LANTUS PER UNIT CHARGE SQ ONE (11:45)
[2021-12-07] MEDS ORDERED: SODIUM CHLORIDE 0.9% 1000ML 1,000 ML IV ONE (12:03)
--- NOTE | 2021-12-07 12:40 | Hospitalist Progress Note ---
Date of Service December 07, 2021 Assessment & Plan (1) Sepsis: Plan: - presented with tachycardia, leukocytosis, positive UA, symptomatic - UTI as likely source - s/p galeano - continue ceftriaxone - IVF - monitor (2) Complicated UTI (urinary tract infection): Plan: - Pt with ongoing issues with recurrent UTI for which he follows with Dr. Valdivia at [facility] urology - Recent cystoscopy on 11/17/21 with significant detrusor failure precluding complete bladder emptying - Pt has been following recommendation to cath 5-6x/day with irrigation in between but does not feel like this has helped - UA positive, sepsis markers as above - urine culture pending - Admit to PCU - Continue ceftriaxone while awaiting cultures - Consult urology - no intervention at this time - continue galeano - draining bloody urine - IVF - Daily labs (3) Hematuria: Plan: - likely due to self cath and in setting of UTI - being flushed by nursing and urology - will monitor for now - hgb stable (4) CAD (coronary artery disease): Plan: Ongoing chest pain for the last 2-3 months (intermittent) - ECG, troponin negative - continue statin, plavix, aspirin (5) RAQUEL (obstructive sleep apnea): Plan: - Continue nocturnal O2 (6) Diabetes mellitus, type II: Plan: Significant insulin requirements at home but still poorly controlled - Initial insulin orders place but pharmacy consulted to assist with glycemic management - Pt has CGM in place and has brought his meter for glucose monitoring as needed - A1c 10.3% 11/2021 (7) COPD (chronic obstructive pulmonary disease): Plan: - noted - dose not appear to be on inhalers - monitor - will given albuterol as needed (8) 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 Medicine Admission and Anticipated Discharge Date Admission Date: December 06, 2021 Subjective 61 year old man with pmh BPH s/p TURP and urinary retention (self caths), DM, CAD zz/p PCI 06/2021, COPD, HTN, HLD, CVID, sleep apnea on 2L NC HS, nephrolithiasis who presented with sepsis due to UTI. Galeano placed with clots and retention. Started on ceftriaxone, urology consulted with no intervention at this time. Patient reports pain in lower abdomen and lower back (chronic low back pain). Denies flank pain, denies fevers or chills, n/v/d, chest pain, shortness of breath. Was asking for food and is hungry. Review of Systems Review of Systems: All systems reviewed & are unremarkable except as noted in Subjective Physical Exam Physical Exam: Constitutional:L well developed and well nourished; n o acute distress Eyes: wnl Neck: trachea midline Respiratory: no respiratory dis tress and no labor ed breathing Ausc ultation: + dimini shed lung sounds; no wheezes Cardiovascular:L Rate/Rhythm: regul ar rate and regula r rhythm Vessels: dorsalis pedis pu lses present and r adial pulses prese nt Extremities: n o pedal edema Gastrointestinal ( Abdomen): Inspection/Auscult ation: normal ellis l sounds; abdomen not distended Per cussion/Palpation: abdomen soft; abd omen nontender Musculoskeletal: Head/Neck/Chest: n ormocephalic, head atraumatic and ne ck supple Skin: no jaundice Neurologic: moves all extremit ies; no focal des r deficits and not confused Psychiatric: : A+Ox3, euthymic af fect galeano in plac e with dark red ur ine draining, debr is in tubing Results & Data Results & Data ([facility]) Vital Signs (Past 12 Hours) Vital Signs Temp Pulse Pulse Resp BP Pulse Ox Pulse Ox 12/07/21 11:30 36.8 C 117 H 20 113/73 90 12/07/21 11:30 90 12/07/21 08:00 105 H 12/07/21 07:10 36.7 C 98 H 19 133/86 94 12/07/21 03:10 36.7 C 100 H 16 142/93 H 93 12/07/21 02:19 89 L 12/07/21 01:54 92 H O2 Del Method O2 Del Method O2 Flow Rate O2 Flow Rate 12/07/21 11:30 Nasal Cannula 3 12/07/21 11:30 Nasal Cannula 3 12/07/21 08:00 12/07/21 07:10 Nasal Cannula 2 12/07/21 03:10 Nasal Cannula 4 12/07/21 02:19 Nasal Cannula 2 12/07/21 01:54 Diagnostic Findings Laboratory Results WBC 14.82 K/ul (4.8-10.8) H 12/07/21 01:28 RBC 5.56 M/uL (4.63-6.08) 12/07/21 01:28 Hgb 15.5 g/dl (14.0-18.0) 12/07/21 01:28 Hct 47.1 % (40.1-51.0) 12/07/21 01:28 MCV 84.7 fL (80.0-100.0) 12/07/21 01:28 MCH 27.9 pg (25.0-34.0) 12/07/21 01:28 MCHC 32.9 g/dL (32.0-36.0) 12/07/21 01:28 RDW Std Deviation 42.4 fL (36.4-46.3) 12/07/21 01:28 RDW Coeff of Leti 13.7 % (11.5-14.5) 12/07/21 01:28 Plt Count 295 K/uL (130-400) 12/07/21 01:28 MPV 11.3 fL (9.4-12.4) 12/07/21 01:28 Immature Gran % (Auto) 0.5 % 12/07/21 01:28 Neut % (Auto) 61.8 % 12/07/21 01:28 Lymph % (Auto) 24.0 % 12/07/21 01:28 [place] % (Auto) 11.0 % 12/07/21 01:28 Eos % (Auto) 1.9 % 12/07/21 01:28 Baso % (Auto) 0.8 % 12/07/21 01:28 Neut # (Auto) 9.16 K/uL (1.4-6.5) H 12/07/21 01:28 Lymph # (Auto) 3.56 K/uL (1.2-3.4) H 12/07/21 01:28 [place] # (Auto) 1.63 K/uL (0.24-0.82) H 12/07/21 01:28 Eos # (Auto) 0.28 K/uL (0-0.50) 12/07/21 01:28 Baso # (Auto) 0.12 K/uL (0-0.2) 12/07/21 01:28 Immature Gran # (Auto) 0.07 K/uL (0.00-0.02) H 12/07/21 01:28 PT 10.4 Seconds (9.0-12.0) 12/06/21 13:07 INR 1.0 (0.9-1.1) 12/06/21 13:07 APTT 26.8 Seconds (21.0-31.0) 12/06/21 13:07 PTT Ratio 1.0 12/06/21 13:07 Sodium 137 mmol/L (136-145) 12/07/21 01:28 Potassium 3.9 mmol/L (3.5-5.1) 12/07/21 01:28 Chloride 99 mmol/L (98-107) 12/07/21 01:28 Carbon Dioxide 28 mmol/L (21-32) 12/07/21 01:28 Anion Gap 10 (3-11) 12/07/21 01:28 BUN 15 mg/dl (6-23) 12/07/21 01:28 Creatinine 0.98 mg/dl (0.6-1.4) 12/07/21 01:28 Est Cr Clr Drug Dosing 103.4 ml/min 12/07/21 01:28 Est GFR ( Amer) 94.7 ml/min 12/07/21 01:28 Est GFR (Non-Af Amer) 81.7 ml/min 12/07/21 01:28 BUN/Creatinine Ratio 15.3 (10-20) 12/07/21 01:28 Glucose 235 mg/dl (70-99(Fasting)) H 12/07/21 01:28 POC Glucose 215 mg/dl (70-99) H 12/07/21 11:13 Estimat Average Glucose 249 mg/dl 12/07/21 01:28 Hemoglobin A1c 10.3 % (4.5-5.6) H 12/07/21 01:28 Lactate 1.9 mmol/L (0.4-2.0) 12/06/21 14:16 Calcium 9.8 mg/dl (8.5-10.1) 12/07/21 01:28 Magnesium 1.7 mg/dl (1.7-2.4) 12/06/21 19:09 Total Bilirubin 0.5 mg/dl (0.2-1.0) 12/06/21 13:07 AST 35 U/L (13-39) 12/06/21 13:07 ALT 30 U/L (7-52) 12/06/21 13:07 Alkaline Phosphatase 90 U/L (34-104) 12/06/21 13:07 Troponin I High Sens 6.8 pg/ml (0-20) 12/07/21 01:28 Total Protein 7.4 gm/dl (6.0-8.3) 12/06/21 13:07 Albumin 4.1 gm/dl (3.4-5.0) 12/06/21 13:07 Globulin 3.3 gm/dl (2.5-4.0) 12/06/21 13:07 Albumin/Globulin Ratio 1.2 (0.9-2) 12/06/21 13:07 Lipase 16 U/L (11-82) 12/06/21 13:07 Urine Color Yellow 12/06/21 13:07 Urine Appearance Turbid (Clear) A 12/06/21 13:07 Urine pH 6.5 (4.5-7.5) 12/06/21 13:07 Ur Specific [place] 1.008 (1.000-1.030) 12/06/21 13:07 Urine Protein 2+ (Negative) H 12/06/21 13:07 Urine Glucose (UA) 1+ (Negative) H 12/06/21 13:07 Urine Ketones Negative (Negative) 12/06/21 13:07 Urine Blood 2+ (Negative) H 12/06/21 13:07 Urine Nitrite Negative (Negative) 12/06/21 13:07 Urine Bilirubin Negative (Negative) 12/06/21 13:07 Urine Urobilinogen Negative (Negative) 12/06/21 13:07 Ur Leukocyte Esterase 3+ (Negative) H 12/06/21 13:07 Urine WBC (Auto) >30 /hpf (0-5) H 12/06/21 13:07 Urine RBC (Auto) 0-4 /hpf (0-4) 12/06/21 13:07 U Hyaline Cast (Auto) 0 /lpf (0-5) 12/06/21 13:07 U Epithel Cells (Auto) >30 /lpf (0-5) H 12/06/21 13:07 Urine Bacteria (Auto) 3+ (Negative) H 12/06/21 13:07 Urine Yeast Present (None Prsent) A 12/06/21 13:07 SARS-CoV-2 (PCR) Cancelled 12/06/21 14:22 SARS-CoV-2 (PCR) NEGATIVE (Negative) 12/06/21 14:22 Influenza Type A (PCR) Cancelled 12/06/21 14:22 Influenza Type B (PCR) Cancelled 12/06/21 14:22 RSV (RT-PCR) Cancelled 12/06/21 14:22 Impressions Chest X-Ray 12/06/21 12:44 SINGLE VIEW CHEST CLINICAL HISTORY: Atypical chest pain. FINDINGS: An AP, portable, upright chest radiograph is compared to study dated 09/28/2020 and correlated with chest CT dated 08/06/2020. The cardiomediastinal silhouette is unremarkable. There is chronic elevation of the right hemidiaphragm with bibasilar scarring/atelectasis. The lungs and pleural spaces are otherwise clear. No pneumothorax is seen. The bony thorax is grossly intact. IMPRESSION: No active disease in the chest. ACT 112: Negative or not required by law. Electronically signed by: Giorgio Millard M.D. 12/06/2021 1:42 PM Abdomen/Pelvis CT 12/06/21 13:59 CT ANGIOGRAM OF THE CHEST; CT SCAN OF THE ABDOMEN AND PELVIS WITH IV CONTRAST CLINICAL HISTORY: Dyspnea. Atypical chest pain. Generalized abdominal pain. COMPARISON STUDY: Chest CT dated 08/06/2020. Abdominal CT dated 08/18/2020. TECHNIQUE: Following the IV administration of 111 of Optiray 320, CT angiogram of the chest is performed from the upper abdomen to the thoracic inlet utilizing the pulmonary embolus protocol. Images are reviewed in the axial, sagittal, coronal planes. 3-D MIPS images are created and assessed. Subsequently, CT scan of the abdomen and pelvis was performed from the lung bases to the proximal femora. Images are reviewed in the axial, sagittal, and coronal planes. IV contrast was administered without complication. A dose lowering technique was utilized adhering to the principles of ALARA. CT DOSE: 2782.45 mGy.cm FINDINGS: CHEST: Thyroid: Imaged portions of the thyroid gland are normal in size and attenuation. Thoracic aorta: The thoracic aorta is normal in caliber and demonstrates standard 3-vessel arch anatomy. No dissection is seen. Pulmonary vasculature: The pulmonary trunk is normal in caliber. There are no filling defects identified in the main, lobar, or segmental pulmonary arteries to indicate pulmonary embolus. Heart: The heart is normal in size and without pericardial effusion. The coronary arteries are densely calcified. Lungs and pleural spaces: There is no airspace consolidation or pleural effusion. The trachea and central airways are clear. There is elevation of the right hemidiaphragm with mild bibasilar scarring/atelectasis. Mediastinum: There is no mediastinal lymphadenopathy. Abbi: Clear. Axillae: There is no axillary lymphadenopathy. Bony thorax: No lytic or blastic lesions are identified. ABDOMEN AND PELVIS: Liver: The contrast-enhanced liver is mildly enlarged measuring 18.3 cm in length. The liver demonstrates diffusely diminished attenuation indicating hepatic steatosis. There is no intrahepatic biliary ductal dilatation. The hepatic veins and portal veins are patent. Gallbladder: Unremarkable. Spleen: Normal in size and attenuation. Pancreas: Mildly atrophic and grossly unremarkable. Adrenal glands: Unremarkable. Kidneys: The contrast enhanced kidneys are normal in size and without hydronephrosis. The kidneys enhance symmetrically. There are tiny bilateral nonobstructing renal calculi. Urothelial thickening and enhancement is seen involving the distal left ureter. Abdominal vasculature: The abdominal aorta is normal in course and caliber noting moderate to advanced atherosclerotic calcification. Stomach and bowel: There is a tiny hiatal hernia. No bowel obstruction is seen. [id number] fecal retention is seen throughout the colon. A duodenal diver ticulum is incidentally noted. The appendix is well-visualized and normal. Peritoneum: There is no intraperitoneal free air or abdominal ascites. There is a fat-containing umbilical hernia. Lymphadenopathy: None. Pelvic viscera: The prostate gland is diminutive versus surgically absent. The bladder wall is thickened and trabeculated. There is mucosal hyperemia and mild surrounding infiltration. Skeletal structures: No lytic or blastic lesions are seen. IMPRESSION: 1. There is no evidence of pulmonary embolus in the main, lobar, or segmental pulmonary arteries. 2. The lungs are clear. 3. Findings suggest cystitis with ascending urinary tract infection on the left. Correlate with clinical findings and urinalysis. 4. Hepatomegaly and hepatic steatosis. 5. Bilateral nephrolithiasis. 6. Additional findings as above. ACT 112: Negative or not required by law. Electronically signed by: Giorgio Millard M.D. 12/06/2021 3:03 PM Chest CTA 12/06/21 13:59 CT ANGIOGRAM OF THE CHEST; CT SCAN OF THE ABDOMEN AND PELVIS WITH IV CONTRAST CLINICAL HISTORY: Dyspnea. Atypical chest pain. Generalized abdominal pain. COMPARISON STUDY: Chest CT dated 08/06/2020. Abdominal CT dated 08/18/2020. TECHNIQUE: Following the IV administration of 111 of Optiray 320, CT angiogram of the chest is performed from the upper abdomen to the thoracic inlet utilizing the pulmonary embolus protocol. Images are reviewed in the axial, sagittal, coronal planes. 3-D MIPS images are created and assessed. Subsequently, CT scan of the abdomen and pelvis was performed from the lung bases to the proximal femora. Images are reviewed in the axial, sagittal, and coronal planes. IV contrast was administered without complication. A dose lowering technique was utilized adhering to the principles of ALARA. CT DOSE: 2782.45 mGy.cm FINDINGS: CHEST: Thyroid: Imaged portions of the thyroid gland are normal in size and attenuation. Thoracic aorta: The thoracic aorta is normal in caliber and demonstrates standard 3-vessel arch anatomy. No dissection is seen. Pulmonary vasculature: The pulmonary trunk is normal in caliber. There are no filling defects identified in the main, lobar, or segmental pulmonary arteries to indicate pulmonary embolus. Heart: The heart is normal in size and without pericardial effusion. The coronary arteries are densely calcified. Lungs and pleural spaces: There is no airspace consolidation or pleural effusion. The trachea and central airways are clear. There is elevation of the right hemidiaphragm with mild bibasilar scarring/atelectasis. Mediastinum: There is no mediastinal lymphadenopathy. Abbi: Clear. Axillae: There is no axillary lymphadenopathy. Bony thorax: No lytic or blastic lesions are identified. ABDOMEN AND PELVIS: Liver: The contrast-enhanced liver is mildly enlarged measuring 18.3 cm in length. The liver demonstrates diffusely diminished attenuation indicating hepatic steatosis. There is no intrahepatic biliary ductal dilatation. The hepatic veins and portal veins are patent. Gallbladder: Unremarkable. Spleen: Normal in size and attenuation. Pancreas: Mildly atrophic and grossly unremarkable. Adrenal glands: Unremarkable. Kidneys: The contrast enhanced kidneys are normal in size and without hydronephrosis. The kidneys enhance symmetrically. There are tiny bilateral nonobstructing renal calculi. Urothelial thickening and enhancement is seen involving the distal left ureter. Abdominal vasculature: The abdominal aorta is normal in course and caliber notin g moderate to advanced atherosclerotic calcification. Stomach and bowel: There is a tiny hiatal hernia. No bowel obstruction is seen. [id number] fecal retention is seen throughout the colon. A duodenal diverticulum is incidentally noted. The appendix is well-visualized and normal. Peritoneum: There is no intraperitoneal free air or abdominal ascites. There is a fat-containing umbilical hernia. Lymphadenopathy: None. Pelvic viscera: The prostate gland is diminutive versus surgically absent. The bladder wall is thickened and trabeculated. There is mucosal hyperemia and mild surrounding infiltration. Skeletal structures: No lytic or blastic lesions are seen. IMPRESSION: 1. There is no evidence of pulmonary embolus in the main, lobar, or segmental pulmonary arteries. 2. The lungs are clear. 3. Findings suggest cystitis with ascending urinary tract infection on the left. Correlate with clinical findings and urinalysis. 4. Hepatomegaly and hepatic steatosis. 5. Bilateral nephrolithiasis. 6. Additional findings as above. ACT 112: Negative or not required by law. Electronically signed by: Giorgio Millard M.D. 12/06/2021 3:03 PM Medications Administered Current Inpatient Medications Acetaminophen (Acetaminophen 325 Mg Tab) 650 mg PO Q4H PRN PRN Reason: Pain or Fever Stop: 01/05/22 18:00 Aspirin (Aspirin 81 Mg Ectab) 81 mg PO QAM [facility] Stop: 01/06/22 08:59 Last Admin: 12/07/21 08:53 Dose: 81 mg Azelastine HCl (Azelastine Hcl 0.1% Nasal 200 Sprays/27,400 Mcg Btl) 2 sprays NA DAILY [facility] Stop: 01/06/22 08:59 Last Admin: 12/07/21 08:54 Dose: 2 sprays Bumetanide (Bumetanide 1 Mg Tab) 3 mg PO DAILY [facility] Stop: 01/06/22 08:59 Last Admin: 12/07/21 08:55 Dose: 3 mg Clopidogrel Bisulfate (Clopidogrel Bisulfate 75 Mg Tab) 75 mg PO QAM [facility] Stop: 01/06/22 08:59 Last Admin: 12/07/21 08:53 Dose: 75 mg Cyanocobalamin (Cyanocobalamin (B-12) 500 Mcg Tablet) 1,000 mcg PO DAILY [facility] Stop: 01/06/22 08:59 Last Admin: 12/07/21 08:54 Dose: 1,000 mcg Dextrose (Dextrose 50% 50 Ml Syringe) 25 - 50 ml IV UD PRN; Protocol PRN Reason: Hypoglycemia Protocol Stop: 01/05/22 18:00 Diltiazem HCl (Diltiazem Hcl 240 Mg Capcr) 240 mg PO QAM [facility] Stop: 01/06/22 08:59 Last Admin: 12/07/21 08:52 Dose: 240 mg Ezetimibe (Ezetimibe 10 Mg Tablet) 10 mg PO QAM [facility] Stop: 01/06/22 08:59 Last Admin: 12/07/21 08:55 Dose: 10 mg Famotidine (Famotidine 20 Mg Tab) 20 mg PO HS [facility] Stop: 01/05/22 20:59 Last Admin: 12/06/21 20:33 Dose: 20 mg Finasteride (Finasteride 5 Mg Tab) 5 mg PO QAM [facility] Stop: 01/06/22 08:59 Last Admin: 12/07/21 08:53 Dose: 5 mg Fluticasone Propionate (Fluticasone Propionate Na Spr 16 Gm Btl) 2 sprays NA DAILY [facility] Stop: 01/06/22 08:59 Last Admin: 12/07/21 08:56 Dose: 2 sprays Gabapentin (Gabapentin 800 Mg Tab) 800 mg PO Q6H [facility] Stop: 01/05/22 18:29 Last Admin: 12/07/21 12:03 Dose: 800 mg Glucagon (Glucagon For Inj 1 Mg Vial) 1 mg SQ UD PRN; Protocol PRN Reason: Hypoglycemia Protocol Stop: 01/05/22 18:00 Glucose (Glucose 40% Gel 15 Gm Tube) 15 - 30 gm PO UD PRN; Protocol PRN Reason: Hypoglycemia Protocol Stop: 01/05/22 18:00 Glucose (Glucose 10 Tab/Tube) 4 - 8 tab PO UD PRN; Protocol PRN Reason: Hypoglycemia Treatment Stop: 01/05/22 18:00 Ceftriaxone Sodium 2,000 mg/ (Dextrose) 70 mls @ 100 mls/hr IV Q24H [facility]OM; Protocol Stop: 12/16/21 14:59 Sodium Chloride (Nss 1000ml) 1,000 mls @ 999 mls/hr IV .Q1H1M ONE Stop: 12/07/21 13:03 Last Admin: 12/07/21 12:07 Dose: 999 mls/hr Insulin Aspart (Insulin Aspart Per Unit) 0 units SC Q6 [facility] Stop: 01/06/22 01:59 Last Admin: 12/07/21 12:04 Dose: 7 units Magnesium Oxide (Magnesium Oxide 400 Mg Tab) 400 mg PO DAILY [facility] Stop: 01/06/22 08:59 Last Admin: 12/07/21 08:53 Dose: 400 mg Methocarbamol (Methocarbamol 750 Mg Tablet) 750 mg PO BID [facility] Stop: 01/05/22 20:59 Last Admin: 12/07/21 08:55 Dose: 750 mg Metoprolol Succinate (Metoprolol Succ 25mg Ext Rel Tab) 37.5 mg PO DAILY [facility] Stop: 01/06/22 08:59 Last Admin: 12/07/21 08:52 Dose: 37.5 mg Miscellaneous (Carbohydrates For Hypoglycemia ) 15 - 30 gm PO UD PRN PRN Reason: Hypoglycemia Protocol Stop: 01/05/22 18:00 Miscellaneous Information (Pharmacy Glycemic Mgmt Consult) 1 each N/A UD PRN PRN Reason: Consult Stop: 01/05/22 18:00 Oxycodone HCl (Oxycodone Hcl Ir 5 Mg Tab (Immediate Release)) 10 mg PO Q6H PRN PRN Reason: Pain Stop: 12/20/21 18:00 Last Admin: 12/07/21 08:58 Dose: 10 mg Potassium Chloride (Potassium Chloride Crtab 20 Meq Tabcr) 20 meq PO DAILY [facility] Stop: 01/06/22 08:59 Last Admin: 12/07/21 08:55 Dose: 20 meq Rosuvastatin Calcium (Rosuvastatin Calcium 20 Mg Tab) 40 mg PO HS [facility] Stop: 01/05/22 20:59 Last Admin: 12/06/21 20:33 Dose: 40 mg Tamsulosin HCl (Tamsulosin Hcl 0.4 Mg Cap) 0.4 mg PO DAILY [facility] Stop: 01/06/22 08:59 Last Admin: 12/07/21 08:53 Dose: 0.4 mg
[2021-12-07] MEDS: cefTRIAXone SODIUM 2,000 MG in DEXTROSE 5% 50 ML IV SCH (15:18)
[2021-12-07] MEDS: FAMOTIDINE 20 MG TAB PO SCH (20:14)
[2021-12-07] MEDS: ROSUVASTATIN CALCIUM 20 MG TAB PO SCH (20:14)
[2021-12-08] MEDS ORDERED: INSULIN ASPART PER UNIT SC SCH
[2021-12-08] MEDS: oxyCODONE HCL IR 5 MG TAB (IMMEDIATE RELEASE) PO PRN ×2 (06:10→12:22)
[2021-12-08] MEDS: GABAPENTIN 800 MG TAB PO SCH ×2 (06:11→12:22)
[2021-12-08 07:08] LABS: Basophils % (auto) 0.9 %; Eosinophils # (auto) 0.26 K/uL (0-0.50); Eosinophils % (auto) 2.3 %; Hematocrit (blood only) 43.7 % (40.1-51.0); Hemoglobin 14.3 g/dl (14.0-18.0); Immature Granulocytes # (auto) 0.05 K/uL (0.00-0.02); Immature Granulocytes % (auto) 0.5 %; Lymphocytes # (auto) 3.07 K/uL (1.2-3.4); Lymphocytes % (auto) 27.7 %; Mean Corpuscular Hemoglobin 27.6 pg (25.0-34.0); Mean Corpuscular Hgb Conc 32.7 g/dL (32.0-36.0); Mean Corpuscular Volume 84.2 fL (80.0-100.0); Mean Platelet Volume 11.7 fL (9.4-12.4); Monocytes # (auto) 1.09 K/uL (0.24-0.82); Monocytes % (auto) 9.8 %; Neutrophils % (auto) 58.8 %; Platelet Count 247 K/uL (130-400); RDW Coefficient of Variation 13.6 % (11.5-14.5); RDW Standard Deviation 41.7 fL (36.4-46.3); Red Blood Count 5.19 M/uL (4.63-6.08); White Blood Count 11.07 K/ul (4.8-10.8)
[2021-12-08 07:31] LABS: BUN Creatinine Ratio 13.6 (10-20); Calcium 9.1 mg/dl (8.5-10.1); Creatinine Clr Calc Pharmacy 91.2 ml/min; Est GFR (African American) 82.4 ml/min; Est GFR (Non-African American) 71.1 ml/min; Magnesium 1.7 mg/dl (1.7-2.4); Phosphorus 4.1 mg/dl (2.5-4.9); Potassium 3.5 mmol/L (3.5-5.1)
[2021-12-08] MEDS: METOPROLOL SUCC 25MG EXT REL TAB PO SCH (08:21)
[2021-12-08] MEDS: MAGNESIUM OXIDE 400 MG TAB PO SCH (08:24)
[2021-12-08] MEDS: EZETIMIBE 10 MG TABLET PO SCH (08:24)
[2021-12-08] MEDS: FINASTERIDE 5 MG TAB PO SCH (08:24)
[2021-12-08] MEDS: CLOPIDOGREL BISULFATE 75 MG TAB PO SCH (08:24)
[2021-12-08] MEDS: ASPIRIN 81 MG ECTAB PO SCH (08:24)
[2021-12-08] MEDS: FLUTICASONE PROPIONATE NA SPR 16 GM BTL SCH (08:25)
[2021-12-08] MEDS: POTASSIUM CHLORIDE CRTAB 20 MEQ TABCR PO SCH (08:25)
[2021-12-08] MEDS: AZELASTINE HCL 0.1% NASAL 200 SPRAYS/27,400 MCG BTL SCH (08:25)
[2021-12-08] MEDS: dilTIAZem HCL 240 MG CAPCR PO SCH (08:25)
[2021-12-08] MEDS: CYANOCOBALAMIN (B-12) 500 MCG TABLET PO SCH (08:25)
[2021-12-08] MEDS: METHOCARBAMOL 750 MG TABLET PO SCH (08:25)
[2021-12-08] MEDS: TAMSULOSIN HCL 0.4 MG CAP PO SCH (08:25)
[2021-12-08] MEDS: INSULIN ASPART PER UNIT SC SCH ×3 (08:26→17:02)
[2021-12-08] MEDS ORDERED: LANTUS PER UNIT CHARGE SQ SCH (09:00)
--- NOTE | 2021-12-08 10:10 | Urology Progress Note ---
Date of Service December 08, 2021 Assessment & Plan (1) Acute UTI: (2) Hematuria: Plan 61yo M admitted with sepsis/UTI and gross hematuria. CT a/p on admission suggestive of cystitis with ascending urinary tract infection on the left. Dent catheter placed on admission. - Hematuria has cleared. - Pt is afebrile, hemodynamically stable. - Labs reviewed - WBC 11.07, hemoglobin 14.3, Creatinine 1.10. - Urine and blood cultures prelim no growth. - On IV Ceftriaxone, follow cultures. - Maintain Dent catheter for now. Pt also prefers to keep catheter in place until outpt f/u with his urologist. - OK to hand irrigate prn clots, retention, suprapubic pain. - Pt follows with [facility] urology. Can arrange outpatient voiding trial with primary urologist following discharge. - Urology will sign-off. Please contact us with any further questions, concerns, or changes in patient status. Admission and Anticipated Discharge Date Admission Date: December 06, 2021 Subjective Pt examined at bedside this AM. Awake, resting in bed on arrival. No acute distress. Dent catheter intact, draining clear yellow urine. Denies any pain or discomfort. Eager to go home. Review of Systems Constitutional: as per Subjective / HPI Genitourinary: + as per Subjective / HPI Physical Exam Constitutional: no acute distress Respiratory: no respiratory distress and no labored breathing Neurologic: moves all extremities and awake Psychiatric: Orientation: alert, oriented x 3 and cooperative Genitourinary: Dent catheter intact. Urine is clear. Results & Data ([facility]) Vital Signs (Past 12 Hours) Vital Signs Temp Pulse Pulse Resp BP Pulse Ox O2 Del Method 12/08/21 08:00 94 Nasal Cannula 12/08/21 08:00 Nasal Cannula 12/08/21 07:24 36.6 C 88 20 114/73 90 Nasal Cannula 12/07/21 23:00 88 12/08/21 04:00 37.0 C 80 16 103/68 93 Nasal Cannula 12/07/21 23:00 36.8 C 93 H 20 96/60 L 90 Room Air O2 Flow Rate 12/08/21 08:00 4 12/08/21 08:00 2 12/08/21 07:24 2 12/07/21 23:00 12/08/21 04:00 4 12/07/21 23:00 2 PG Care Time/CCT Total # of Minutes Spent Total Time Spent with Patient: Total time spent is greater than 50% in coordination of care (as documented) at patient's floor/unit and/or counseling patient: Coding Level of Care Code 20432 Subseq Hosp Care Lvl 2 Diagnoses Acute UTI N39.0 Hematuria R31.9
--- NOTE | 2021-12-08 12:58 | Pharmacy Report ---
Pharmacy Glycemic Short Note 2 - Date of Service December 08, 2021 - Glycemic Short BSG Results (Last 24 hours): 12/07/21 12/07/21 12/07/21 16:15 20:35 23:58 Glucose POC Glucose 248 H 246 H 139 H 12/08/21 12/08/21 12/08/21 06:07 07:27 11:14 Glucose 191 H POC Glucose 197 H 220 H OUTPATIENT ANTIDIABETIC REGIMEN: * Lantus 37 units SC BID * Novolog 38 units SC w/ breakfast, 35 units SC w/ lunch, and 35 units SC w/ dinner * Trulicity 4.5 mg SC weekly on Sundays HbA1c: 10.3% (12/07/21) ASSESSMENT: 12/08/21: * Persistent hyperglycemia yesterday (>200 mg/dL) w/ fasting BSG of 197 mg/dL th is morning * Will increase basal and tighten Novolog today * Continues on ceftriaxone 12/07/21: * RM is a 61 year old male admitted for presumed urosepsis (recent cystoscopy on 11/17/21) w/ significant detrusor failure inhibiting complete bladder emptying. Currently receiving ceftriaxone. * BSGs elevated on presentation (> 200 mg/dL) w/ fasting BSG of 223 mg/dL this morning * Received home dose of basal insulin yesterday * Originally NPO after midnight, now ordered a diet - will give ~80% of total daily basal now with overnight checks PLAN FOR INPATIENT GLYCEMIC CONTROL: * Basal insulin * Lantus 40 units SC BID * Bolus insulin * NovoLog per scale ACHS or Q6hrs while NPO * Goal Range: Low 110 mg/dL - High 140 mg/dL * Correction Factor: 12 mg/dL/unit * Nutritional / Prandial insulin per carb ratio of 1 unit per 4 grams CHO consumed
[2021-12-08] MEDS ORDERED: FLUCONAZOLE 50 MG TAB PO ONE (15:00)
[2021-12-08] MEDS: cefTRIAXone SODIUM 2,000 MG in DEXTROSE 5% 50 ML IV SCH (16:04)
--- NOTE | 2021-12-08 16:19 | Discharge Summary ---
Date of Service December 08, 2021 Admission HPI Per Admitting Provider This is a 61 y/o male with a PMH of BPH s/p TURP with ongoing issues with urinary retention, insulin-requiring DM2 with associated neuropathy, CAD s/p PCI in 07/11 to mid LAD, COPD, HTN, dyslipidemia, CVID, chronic pain with chronic narcotic use, sleep apnea on 2L O2 HS, kidney stones, and seasonal allergies who presents to the ED today with worsening of chronic pain and possible UTI. Pt has had ongoing issues with recurrent UTIs and urinary retention for which he follows with urology. He underwent TURP but continues to have retention for which he is currently straight catheterizing 5-6x/day with irrigation in between. He reports that sometimes they are able to get urine back but other times they are not. When he is able to cath successfully with urine return, he feels better than when he cannot. This morning, when his did his first cath, she noted resistance, blood with small clots in the urine, and white sediment in the urine with an associated foul odor. They have also noted worsening hyperglycemia with fasting sugars in the morning often over 300. He does have a CGM for blood glucose monitoring. He also notes ongoing issues with intermittent chest pain, which he reports having discussed with cardiology at his last follow-up visit. He is on oxycodone for chronic pain, which his PCP recently attempted to transition to a long-acting formulation for better pain control but there were insurance coverage issues so he is continuing to use Oxy IR prn instead. He is minimally ambulatory at baseline, typically requiring a wheelchair although he is able to use his walker at times. His assists with his care at home. He reports ongoing leg weakness at home since the TURP. He also notes generalized weakness and fatigue that waxes and wanes. He denies documented fever, chills, or URI symptoms. No N/V/D. No blood in stool. Admission Exam Per Admitting Provider Constitutional: well developed and well nourished; no acute distress Eyes: + anicteric sclerae Neck: trachea midline Respiratory: no respiratory distress and no labored breathing Auscultation: + diminished lung sounds; no wheezes Cardiovascular: Rate/Rhythm: regular rate and regular rhythm Vessels: dorsalis pedis pulses present and radial pulses present Extremities: no pedal edema Gastrointestinal (Abdomen): Inspection/Auscultation: normal bowel sounds; abdomen not distended Percussion/Palpation: abdomen soft; abdomen nontender Musculoskeletal: Head/Neck/Chest: normocephalic, head atraumatic and neck supple Skin: no jaundice Neurologic: moves all extremities; no focal motor deficits and not confused Psychiatric: A+Ox3, euthymic affect Principal Diagnosis Sepsis POA Complicated UTI Hematuria Discharge Exam GENERAL: Alert and oriented x3. NAD, on RA, obese class II. HEENT: No pallor, no icterus. Pupils equal, round and reactive to light. Oral mucosa moist. NECK: No JVD, no neck masses. HEART: S1 and S2 heard. tachycardia, sinus. No murmur, no gallop. RESPIRATORY SYSTEM: Normal AP diameter. No accessory muscle use. No wheezing, no crackles. ABDOMEN: Soft, bowel sounds present, lower abd/left flank tender, no distention. CENTRAL NERVOUS SYSTEM: No facial droop. Speech is clear. Obeys simple commands. Moves extremities. EXTREMITIES: No edema, no erythema seen. Left CVA non-tender Discharge Data Allergies Allergy/AdvReac Type Severity Reaction Status Date / Time atenolol Allergy Severe DEPRESSION/ Verified 12/06/21 15:33 SUICIDAL amoxicillin Allergy Intermediate "SEVERE" Verified 12/06/21 15:33 DIARRHEA celecoxib Allergy Intermediate FLUID Verified 12/06/21 15:33 RETENTION-WT GAIN clavulanic acid Allergy Intermediate "SEVERE" Verified 12/06/21 15:33 DIARRHEA fentanyl Allergy Intermediate Rash Verified 12/06/21 15:33 adhesive tape Allergy Mild RASH--? Verified 12/06/21 15:33 ADHESIVE ALLERGY fluoxetine AdvReac Severe HALLUCINATI Verified 12/06/21 15:33 ONS Consultations 12/06/21 15:26 ED Decision to Admit Stat 12/06/21 20:07 Consult Urology Routine Ordered Studies 12/06/21 13:59 CT abd pelvis IV con only Stat CT angio chest PE protocol Stat Hospital Course (1) Acute UTI: Plan 61-year-old man was managed for the following while in hospital: (1) Sepsis: Plan: - presented with tachycardia, leukocytosis, positive UA, symptomatic - UTI as likely source - s/p galeano - continue ceftriaxone, on levofloxacin for 5 days upon discharge. (2) Complicated UTI (urinary tract infection): Plan: - Pt with ongoing issues with recurrent UTI for which he follows with Dr. Valdivia at [facility] urology - Recent cystoscopy on 11/17/21 with significant detrusor failure precluding complete bladder emptying - Pt has been following recommendation to cath 5-6x/day with irrigation in between but does not feel like this has helped - UA positive, sepsis markers as above - urine culture no growth, likely contaminant. Ceftriaxone to be transitioned to levofloxacin upon discharge. Patient to follow-up with urology as an outpatient for voiding trial and continued urology care. Patient aware. Patient will likely need urine analysis repeated as an outpatient. (3) Hematuria: Plan: - likely due to self cath and in setting of UTI - being flushed by nursing and urology - will monitor for now - hgb stable, urine analysis as an outpatient, patient to follow-up with urology. #. Skin rash on the posterior lateral aspect of right hip, few blister, no underlying erythema or pain or itching. Likely contact irritation, patient ad vised to maintain cleanliness around the area and keep the area dry, patient advised to have PCP look at it in a week time when he visits his PCP as a part of transition of care assessment. Patient's also made aware about it and both verbalized understanding. (4) CAD (coronary artery disease): Plan: Ongoing chest pain for the last 2-3 months (intermittent) - ECG, troponin negative - continue statin, plavix, aspirin (5) RAQUEL (obstructive sleep apnea): Plan: - Continue nocturnal O2, patient had declined sleep test in the past per patient himself, patient advised to have sleep test done as an outpatient, patient verbalized understanding. 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 And likely you will need blood test CBC/CMP/magnesium levels. You are being treated for your complicated UTI, please complete the course of antibiotic as prescribed. Probiotics will be added. For your hematuria, you will need to maintain follow-up with urology as an outpatient in 1-2 weeks, you are being discharged on Galeano catheter. You will also likely need urine analysis as an outpatient, follow-up with urology. Take your medications as prescribed. Home Health Attestation I certify that this patient is under my care and that I, or a physicians graduate assistant working with me, had a face to-face encounter that meets the home health [id number] encounter requirements with this patient. The encounter with the patient was in whole, or in part, for the following medical condition, which is the primary reason for home health care (list medical condition): urosepsis I certify that, based on my findings, the following services are medically necessary home health services: My clinical findings support the need for the above services because: OT Assess ADL Status and Restore Function w ADLs PT Assessment for Endurance / Balance / Strength PT Eval for Safety and Mobility PT Eval for Safety, Gait Training, Assistive Devices PT Gait and Balance Training, Strengthening and Safety Skilled Nsg Assessment Further, I certify that my clinical findings support that this patient is homebound (i.e. absences from home require considerable and taxing effort and are for medical reasons or episcopal services or infrequently or of short duration when for other reasons) because: Supportive Aid - Walker Supportive Aid - Wheelchair Transportation Assistance/Unable to Leave Home Unassisted Certification for Home Health Services: Based on the above findings, I certify that this patient is confined to the home and needs intermittent penitentiary care, physical therapy and/or speech therapy or continues to need occupational therapy. The patient is under my care, and I have initiated the establishment of the plan of care. This patient will be followed by a physician who will periodically review the plan of care. Total Time Total Time Spent Total Time Spent (In Minutes): 45 Discharge Plan Discharge Items Patient Disposition: Home - Home Health Services Reason For Visit: UROSEPSIS Discharge Diagnosis: Sepsis POA Complicated UTI Hematuria Activity: Resume your previous activity Non-emergency contact: Primary Care Provider Call non-emergency contact if: you have any medication questions, your symptoms worsen, your pain is worsening and your temperature is above 101 Follow-up/Referrals: Yann Fraga MD [Primary Care Provider] - Diet: Carb Consistent or DM2 and Heart Healthy Addtl Attending Provider Instructions: Follow-up with your primary care physician within 1 week time. And likely you will need blood test CBC/CMP/magnesium levels. You are being treated for your complicated UTI, please complete the course of antibiotic as prescribed. Probiotics will be added. For your hematuria, you will need to maintain follow-up with urology as an outpatient in 1-2 weeks, you are being discharged on Galeano catheter. You will also likely need urine analysis as an outpatient, follow-up with urology. Take your medications as prescribed. Pending Studies at Discharge: Yes (Admitting blood culture final results.) Stand-Alone Forms: My [facility], Smoking Cessation Medications and DC Order Prescriptions: New levofloxacin 750 mg tablet 750 mg PO DAILY 5 Days Qty: 5 0RF Continued epinephrine 0.3 mg/0.3 mL auto-injector 0.3 mg IM Q20M PRN (Reason: anaphylaxis) Qty: 1 1RF albuterol sulfate [Ventolin HFA] 90 mcg/actuation HFA aerosol inhaler 2 puff INHALATION Q6H PRN (Reason: Shortness Of Breath Or Wheezing) Qty: 8.5 4RF diltiazem HCl 240 mg Capsule,Extended Release 24 Hr 240 mg PO QPM tamsulosin 0.4 mg Capsule 0.4 mg PO DAILY fluticasone propionate [Flonase Allergy Relief] 50 mcg/actuation [place],Suspension 2 spray INTRANASAL DAILY cyanocobalamin (vitamin B-12) 1,000 mcg Tablet, Sublingual 1,000 mcg SUBLINGUAL DAILY insulin glargine [Lantus Solostar U-100 Insulin] 100 unit/mL (3 mL) Insulin Pen 37 unit SUBCUT BID loperamide 2 mg capsule 2 mg PO BID PRN (Reason: Diarrhea) bumetanide 1 mg tablet 3 mg PO DAILY metoprolol succinate 25 mg tablet extended release 24 hr 37.5 mg PO DAILY rosuvastatin 40 mg tablet 40 mg PO HS naloxone 4 mg/actuation [place],Non-Aerosol 4 mg INTRANASAL DIRECTED PRN (Reason: OVERSEDATION) Rx Instructions: spray into nostril for suspected opioid overdose terbinafine HCl [Lamisil] 1 % Cream 1 applic TOPICAL BID PRN (Reason: NEEDED ATHLETE'S FOOT) glipizide 5 mg Tablet Extended Release 24hr 5 mg PO DAILY magnesium oxide 500 mg Tablet 500 mg PO DAILY ergocalciferol (vitamin D2) [Vitamin D2] 1,250 mcg (50,000 unit) Capsule 1,250 mcg PO WK Rx Instructions: Sundays PreserVision AREDS-2 250-90-40-1 mg Capsule 1 tab PO DAILY Trulicity 4.5 mg/0.5 mL Pen Injector 4.5 mg SUBCUT WK Label Comments: Takes on Sundays Rx Instructions: INJECT 1 PEN UNDER THE SKIN ONCE WEEKLY--PER GMG. gabapentin 800 mg tablet 800 mg PO Q6H azelastine 137 mcg (0.1 %) aerosol,spray 2 sprays INTNAS DAILY Rx Instructions: administer into each nostril oxycodone 10 mg Tablet 10 mg PO Q6H PRN (Reason: Pain) Rx Instructions: May take an additional half tab up to twice a day. methocarbamol 750 mg Tablet 750 mg PO BID insulin lispro 100 unit/mL Solution 40 - 45 unit SUBCUT ACHS finasteride 5 mg tablet 5 mg PO QAM potassium chloride 20 mEq tablet extended release 20 meq PO DAILY Rx Instructions: up to BID. hydroxyzine HCl 50 mg Tablet 50 mg PO TID PRN (Reason: Anxiety) nitroglycerin 0.4 mg Tablet, Sublingual See Rx Instructions .ROUTE .COMPLEX Rx Instructions: 0.4 mg sublingually, as needed for chest pain famotidine [Acid Photoengraving Machine Operator/Tender (famotidine)] 20 mg tablet 20 mg PO HS clopidogrel 75 mg Tablet 75 mg PO QAM Qty: 30 1RF ezetimibe 10 mg Tablet 10 mg PO QAM Qty: 30 1RF aspirin [Chari Low Dose Aspirin] 81 mg Tablet,Delayed Release (Dr/Ec) 81 mg PO QAM Qty: 30 1RF Discharge Orders: Discharge Order (Routine); Ordered 12/08/21 Ordered By: Anastacia Hendricks/Other Patient Handouts: Managing Type 2 Diabetes Admission Data Admit Date/Time: 12/06/21 16:11 Attending Provider: Anastacia Basurto Admit Provider: Anastacia Basurto Primary Care Provider: Yann Fraga Other Providers: Anastacia Basurto ; Sreedhar Malik
== END 2021-12-08 17:45 | disposition home health service (06) | DRG 872 ==
LOC: ED 12:20 → 2S 16:11 → SUATTDRO 16:11 → 2S 17:41
DX: E11.40 Type 2 diabetes mellitus with diabetic neuropathy, unspecified; Z83.3 Family history of diabetes mellitus; A41.9 Sepsis, unspecified organism; Y81.2 Prosthetic and other implants, materials and accessory general- and plastic-surgery devices associated with adverse incidents; Y92.009 Unspecified place in unspecified non-institutional (private) residence as the place of occurrence of the external cause; D83.2 Common variable immunodeficiency with autoantibodies to B- or T-cells; Z79.4 Long term (current) use of insulin; I25.10 Atherosclerotic heart disease of native coronary artery without angina pectoris; G47.33 Obstructive sleep apnea (adult) (pediatric); Z88.8 Allergy status to other drugs, medicaments and biological substances; E78.5 Hyperlipidemia, unspecified; R33.9 Retention of urine, unspecified; N40.1 Benign prostatic hyperplasia with lower urinary tract symptoms; N39.0 Urinary tract infection, site not specified; E87.6 Hypokalemia; R31.0 Gross hematuria; Z88.1 Allergy status to other antibiotic agents; I10 Essential (primary) hypertension

== ENCOUNTER 2022-03-30 22:07 | Inpatient (IN) ==
[2022-03-30] MEDS ORDERED: MoRPHine SULFATE 4 MG/ML 1 ML CARP\\VIAL IV STA (23:00)
[2022-03-30] MEDS ORDERED: SODIUM CHLORIDE 0.9% 1000ML 1,000 ML IV STA (23:00)
[2022-03-30] MEDS ORDERED: ONDANSETRON INJ 2 MG/ML 2 ML VIAL IV STA (23:00)
[2022-03-30] MEDS ORDERED: SODIUM CHLORIDE 0.9% 1000ML 1,000 ML IV ONE (23:00)
[2022-03-30 23:33] LABS: Basophils % (auto) 0.5 %; Eosinophils # (auto) 0.07 K/uL (0-0.50); Eosinophils % (auto) 0.4 %; Hematocrit (blood only) 48.8 % (42.0-52.0); Hemoglobin 16.6 g/dl (14.0-18.0); Immature Granulocytes # (auto) 0.32 K/uL (0.01-0.20); Immature Granulocytes % (auto) 1.7 %; Lymphocytes # (auto) 1.68 K/uL (1.2-3.4); Lymphocytes % (auto) 9.1 %; Mean Corpuscular Hemoglobin 28.2 pg (25.0-34.0); Monocytes # (auto) 0.99 K/uL (0.11-0.59); Monocytes % (auto) 5.4 %; Neutrophils # (auto) 15.24 K/uL (1.40-6.50); Neutrophils % (auto) 82.9 %; Nucleated RBC # (auto) 0.03 K/uL (0-0.12); Nucleated RBC % (auto) 0.2 %; Platelet Count 359 K/uL (130-400); RDW Coefficient of Variation 13.8 % (11.5-14.5); RDW Standard Deviation 41.1 fL (36.4-46.3); Red Blood Count 5.88 M/uL (4.70-6.10)
[2022-03-30 23:36] LABS: iSTAT Creatinine 1.4 mg/dl (0.6-1.3); iSTAT Ionized Calcium 1.01 mmol/l (1.12-1.32); iSTAT Potassium 3.8 mmol/L (3.3-5.0)
[2022-03-31 00:06] LABS: Albumin Level 3.9 gm/dl (3.4-5.0); Bilirubin,Total 0.5 mg/dl (0.2-1.0); Calcium 8.8 mg/dl (8.5-10.1)
[2022-03-31 00:12] LABS: Albumin Globulin Ratio 1.3 (0.9-2); Creatinine Clr Calc Pharmacy 73.1 ml/min; Est GFR (African American) 62.1 ml/min; Est GFR (Non-African American) 53.6 ml/min; Globulin 3.1 gm/dl (2.5-4.0)
[2022-03-31 00:13] LABS: Troponin I High Sensitivity 15.7 pg/ml (0-20)
[2022-03-31] MEDS ORDERED: OPTIRAY 350 100ml IV ONE (00:18)
[2022-03-31] MEDS ORDERED: CEFEPIME 2,000 MG/20 ML VIAL IV STA (00:52)
--- NOTE | 2022-03-31 01:10 | Emergency Department Note ---
History of Present Illness General Chief complaint: Illness Stated complaint: generalized illness, N/V Time Seen by Provider: 03/30/22 22:57 History of Present Illness Maximum Pain Intensity: 10 This 61-year-old male presents to the ER complaint of nausea vomiting and lower abdominal pain who is a suprapubic cath. Patient denies chest pain, dyspnea, fevers, flulike illness. His heart rate is in the 140s. Home Medications Medication Instructions Recorded Confirmed Type fluticasone propionate 50 2 spray intranasal DAILY 03/15/18 03/31/22 History mcg/actuation nasal spray,suspension (Flonase Allergy Relief) diltiazem HCl 240 mg capsule,24 240 mg PO QPM 06/12/18 03/31/22 History hr,extended release tamsulosin 0.4 mg capsule 0.4 mg PO HS 12/10/18 03/31/22 History oxycodone 10 mg tablet 10 mg PO Q6H PRN Pain 05/02/20 03/31/22 History cyanocobalamin (vitamin B-12) 1,000 mcg sublingual DAILY 08/06/20 03/31/22 History 1,000 mcg sublingual tablet insulin glargine 100 unit/mL (3 37 unit subcut BID 08/06/20 03/31/22 History mL) subcutaneous pen (Lantus Solostar U-100 Insulin) bumetanide 1 mg tablet 3 mg PO DAILY 08/18/20 03/31/22 History metoprolol succinate 25 mg 37.5 mg PO DAILY 08/18/20 03/31/22 History tablet,extended release 24 hr naloxone 4 mg/actuation nasal spray 4 mg intranasal DIRECTED PRN 08/18/20 03/31/22 History OVERSEDATION rosuvastatin 40 mg tablet 40 mg PO HS 08/18/20 03/31/22 History finasteride 5 mg tablet 5 mg PO QAM 09/28/20 03/31/22 History insulin lispro 100 unit/mL 40 - 45 unit subcut ACHS 09/28/20 03/31/22 History subcutaneous solution methocarbamol 750 mg tablet 750 mg PO BID 09/28/20 03/31/22 History potassium chloride 20 mEq 20 meq PO DAILY 09/28/20 03/31/22 History tablet,extended release famotidine 20 mg tablet (Acid 20 mg PO HS 07/07/21 03/31/22 History Sheet Rock Sander (famotidine)) hydroxyzine HCl 50 mg tablet 50 mg PO TID PRN Anxiety 07/07/21 03/31/22 History aspirin 81 mg tablet,delayed 81 mg PO QAM #30 tabs 07/08/21 03/31/22 Rx release (Chari Low Dose Aspirin) clopidogrel 75 mg tablet 75 mg PO QAM #30 tabs 07/08/21 03/31/22 Rx ezetimibe 10 mg tablet 10 mg PO QAM #30 tabs 07/08/21 03/31/22 Rx dulaglutide 4.5 mg/0.5 mL 4.5 mg subcut WK 12/06/21 03/31/22 History subcutaneous pen injector (Trulicity) ergocalciferol (vitamin D2) 1,250 1,250 mcg PO WK 12/06/21 03/31/22 History mcg (50,000 unit) capsule (Vitamin D2) gabapentin 800 mg tablet 800 mg PO Q6H 12/06/21 03/31/22 History glipizide 5 mg tablet, extended 5 mg PO DAILY 12/06/21 03/31/22 History release 24 hr magnesium oxide 500 mg tablet 500 mg PO DAILY 12/06/21 03/31/22 History albuterol sulfate 90 mcg/actuation 2 puff inhalation Q6H PRN 12/24/21 03/31/22 Rx aerosol inhaler (Ventolin HFA) Shortness Of Breath Or Wheezing #8.5 grams immun glob G 4 gram/20 mL (20 See Rx Instructions subcut 03/25/22 03/31/22 Rx %)-prol-IgA 0-50 mcg/mL .COMPLEX #240 mL subcutaneous syr (Hizentra) cyclobenzaprine 5 mg tablet 5 mg PO TID PRN MUSCLE SPASMS 03/31/22 03/31/22 History doxycycline monohydrate 100 mg 100 mg PO BID PRN RESCUE KIT 03/31/22 03/31/22 History capsule duloxetine 30 mg capsule,delayed 30 mg PO DAILY 03/31/22 03/31/22 History release pantoprazole 40 mg tablet,delayed 40 mg PO DAILY 03/31/22 03/31/22 History release (Protonix) phenazopyridine 200 mg tablet 200 mg PO Q8H PRN Bladder Spasms 03/31/22 03/31/22 History Allergies Allergy/AdvReac Type Severity Reaction Status Date / Time atenolol Allergy Severe DEPRESSION/ Verified 03/31/22 00:22 SUICIDAL amoxicillin Allergy Intermediate "SEVERE" Verified 03/31/22 00:22 DIARRHEA celecoxib Allergy Intermediate FLUID Verified 03/31/22 00:22 RETENTION-WT GAIN clavulanic acid Allergy Intermediate "SEVERE" Verified 03/31/22 00:22 DIARRHEA fentanyl Allergy Intermediate Rash Verified 03/31/22 00:22 adhesive tape Allergy Mild RASH--? 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 COPD (chronic obstructive pulmonary disease) Costochondritis Depression Diabetes mellitus, type II IDDM Diabetic neuropathy Dyslipidemia GERD (gastroesophageal reflux disease) Grade II diastolic dysfunction Hearing deficit RIGHT EAR DEAF Heartburn HLD (hyperlipidemia) HTN (hypertension) Kidney stones Mood disorder Narcotic dependence Nasal septal deviation On anticoagulant therapy ASA 81MG Osteoarthritis Pneumonia MAY 2018 Seasonal allergies Sleep apnea 2LPM VIA N/C Steatosis of liver (Unknown) Tobacco use Ureteral stone Vasodepressor syncope Surgical History History of colonoscopy History of esophagogastroduodenoscopy (EGD) History of lithotripsy Hx of transurethral resection of prostate S/P cardiac cath PCI to mid LAD S/P PICC central line placement WITH REMOVAL (JUNE 2018) Family History Grandmother Family history of diabetes mellitus Cancer Father Family history of high blood pressure FHx: heart disease Hypertension Sister Asthma Allergies Hypertension Mother Hearing loss Hypertension Uncle Hypertension Other Heart disease No family history of adverse response to anesthesia No family history of bleeding disorder Social History Smoking Status: Current every day smoker Tobacco Type: Smokeless Tobacco (Dip or Chew) Cigarettes Per Day: 1 can/2days; Second Hand Exposure: No; Hx Alcohol Use: No Hx Substance Use: No Preferred Language: Vincentian Communication Ability: Effective Visual Impairment: Limited Director Volunteer Services Required: No Beliefs That Will Affect Care: None marital status: Current Living Situation: Spouse Current Living Situation Comment: Home with spouse current occupational status: unemployed and disabled How many Children do You have: 3 Feels Safe at Home: Yes Assistive Devices: Wheelchair Review of Systems A total of 10 systems reviewed and were otherwise negative Physical Exam Vital Signs Vital Signs - 24 hr 03/30/22 22:00 03/30/22 23:01 03/31/22 01:45 Temperature 37 C Temperature Source Oral Pulse Rate 146 H Pulse Rate [Apical] 124 H Respiratory Rate 14 19 Respiratory Effort / Characteristics Non-Labored Spontaneous Non-Labored Spontaneous Respiratory Depth Normal Normal Respiratory Pattern Regular Regular Blood Pressure 117/82 Blood Pressure [Right Arm] 127/81 Blood Pressure Mean 93 Blood Pressure Mean [Right Arm] 96 Pulse Oximetry 95 95 94 Oxygen Delivery Method Room Air Room Air Room Air Sepsis Recent Fever Within 48 Hours No Sepsis New/Unexplained Change in Mental Status No Sepsis Action Taken by Nursing No Action Required VITALS: Vitals are noted on the nurse's note and reviewed by myself. Vital signs tachycardic. GENERAL: White male vomiting who appears in pain, in no acute distress, nondiaphoretic, well-developed well-nourished. SKIN: The skin was without rashes, erythema, edema, or bruising. There is no tenting of the skin. Capillary reflex less than 2 seconds. HEAD: Normocephalic atraumatic. EARS: External auditory canals clear, EYES: Pupils equal round and reactive to light and accommodation. Conjunctivae without injection, sclerae without icterus. Extraocular movements intact. NOSE: Patent, turbinates without inflammation or discharge. MOUTH: Mucous membranes moist. Pharynx without erythema or exudate. Uvula midline. Airway patent. Tongue does not deviate. NECK: Supple without nuchal rigidity. No lymphadenopathy. No thyromegaly. Cervical spine is nontender. No JVD. HEART: Tachycardic rate and rhythm LUNGS: Clear to auscultation bilaterally without wheezes, rales or rhonchi. No retractions or accessory muscle use. ABDOMEN: Positive bowel sounds x 4. Normal tympanic percussion. Soft, tender lower abdomen, without masses or organomegaly. Olvera sign negative. No guarding or rebound tenderness. No CVA tenderness MUSCULOSKELETAL: No muscle atrophy, erythema, or edema noted. NEURO: Patient was alert and oriented to person place and time. Normal sensation to light and sharp touch. No focal neurological deficits. Course Administered Medications Discontinued Medications Sodium Chloride (Nss 1000ml) 1,000 mls @ 999 mls/hr IV .Q1H1M STA Stop: 03/31/22 00:00 Last Admin: 03/30/22 23:15 Dose: 999 mls/hr Documented By: CASS Sodium Chloride (Nss 1000ml) 1,000 mls @ 999 mls/hr IV .Q1H1M ONE Stop: 03/31/22 00:00 Last Admin: 03/30/22 23:15 Dose: 999 mls/hr Documented By: CASS Cefepime HCl (Maxipime) 2,000 mg in 20 mls @ 5 mls/min IV NOW STA; Protocol Stop: 03/31/22 00:55 Last Admin: 03/31/22 01:32 Dose: 5 mls/min Documented By: RICHARDSON Sodium Chloride (Nss 1000ml) 500 mls @ 999 mls/hr IV .Q31M ONE Stop: 03/31/22 01:49 Last Admin: 03/31/22 01:40 Dose: 999 mls/hr Documented By: RICHARDSON Ioversol (Optiray 350 100ml) 100 ml IV ONCE ONE Stop: 03/31/22 00:19 Last Admin: 03/31/22 00:18 Dose: 86 ml Documented By: CHELSEY Morphine Sulfate (Morphine Sulfate 4 Mg/Ml 1 Ml Carp\\Vial) 4 mg IV NOW STA Stop: 03/30/22 23:01 Last Admin: 03/30/22 23:15 Dose: 4 mg Documented By: CASS Ondansetron HCl (Ondansetron Inj 2 Mg/Ml 2 Ml Vial) 4 mg IV NOW STA Stop: 03/30/22 23:01 Last Admin: 03/30/22 23:14 Dose: 4 mg Documented By: CASS Medical Decision Making Medical Records Attestation: I reviewed the patient's medical records. Home Medications Current Medication List: was personally reviewed by ia Laboratory Data Attestation: I reviewed the patient's lab results. 03/30/22 23:11 03/30/22 23:11 Lab Results 03/30/22 03/30/22 03/30/22 Range/Units 23:11 23:11 23:11 WBC 18.40 H (4.8-10.8) K/ul RBC 5.88 (4.70-6.10) M/uL Hgb 16.6 (14.0-18.0) g/dl POC Hgb (14.0-18.0) g/dl Hct 48.8 (42.0-52.0) % POC Hct (42-52) % MCV 83.0 (80.0-100.0) fL MCH 28.2 (25.0-34.0) pg MCHC 34.0 (32.0-36.0) g/dL RDW Std Deviation 41.1 (36.4-46.3) fL RDW Coeff of Leti 13.8 (11.5-14.5) % Plt Count 359 (130-400) K/uL MPV 11.0 (9.4-12.4) fL Immature Gran % (Auto) 1.7 % Neut % (Auto) 82.9 % Lymph % (Auto) 9.1 % [place] % (Auto) 5.4 % Eos % (Auto) 0.4 % Baso % (Auto) 0.5 % Neut # (Auto) 15.24 H (1.40-6.50) K/uL Lymph # (Auto) 1.68 (1.2-3.4) K/uL [place] # (Auto) 0.99 H (0.11-0.59) K/uL Eos # (Auto) 0.07 (0-0.50) K/uL Baso # (Auto) 0.10 (0-0.2) K/uL Immature Gran # (Auto) 0.32 H (0.01-0.20) K/uL Absolute Nucleated RBC 0.03 (0-0.12) K/uL Nucleated RBC % (auto) 0.2 % POC Sodium (135-144) mmol/L Sodium 145 (136-145) mmol/L POC Potassium (3.3-5.0) mmol/L Potassium 4.0 (3.5-5.1) mmol/L POC Chloride (101-112) mmol/L Chloride 104 (98-107) mmol/L Carbon Dioxide 33 H (21-32) mmol/L POC Total CO2 (24-31) mmol/L Anion Gap 8 (3-11) POC Anion Gap (16-25) mmol/L POC BUN (7-18) mg/dl BUN 32 H (6-23) mg/dl Creatinine 1.39 (0.6-1.4) mg/dl POC Creatinine (0.6-1.3) mg/dl Est Cr Clr Drug Dosing 73.1 ml/min Est GFR ( Amer) 62.1 ml/min Est GFR (Non-Af Amer) 53.6 ml/min BUN/Creatinine Ratio 23.0 H (10-20) Glucose 165 H (70-99(Fasting)) mg/dl POC Glucose (other) (70-99) mg/dl Lactate 2.5 H* (0.4-2.0) mmol/L Calcium 8.8 (8.5-10.1) mg/dl POC Ioniz Calcium [place] (1.12-1.32) mmol/l Total Bilirubin 0.5 (0.2-1.0) mg/dl AST 126 H (13-39) U/L ALT 69 H (7-52) U/L Alkaline Phosphatase 68 (34-104) U/L Troponin I High Sens 15.7 (0-20) pg/ml Total Protein 7.0 (6.0-8.3) gm/dl Albumin 3.9 (3.4-5.0) gm/dl Globulin 3.1 (2.5-4.0) gm/dl Albumin/Globulin Ratio 1.3 (0.9-2) Lipase 20 (11-82) U/L Urine Color Urine Appearance (Clear) Urine pH (4.5-7.5) Ur Specific [place] (1.000-1.030) Urine Protein (Negative) Urine Glucose (UA) (Negative) Urine Ketones (Negative) Urine Blood (Negative) Urine Nitrite (Negative) Urine Bilirubin (Negative) Urine Urobilinogen (Negative) Ur Leukocyte Esterase (Negative) Urine WBC (Auto) (0-5) /hpf Urine RBC (Auto) (0-4) /hpf U Hyaline Cast (Auto) (0-5) /lpf U Epithel Cells (Auto) (0-5) /lpf Urine Bacteria (Auto) (Negative) Urine Crystals Calcium Oxalate Crystal (None Prsent) SARS-CoV-2, RNA, NAAT (NEGATIVE) 03/30/22 03/30/22 03/31/22 Range/Units 23:20 23:21 01:07 WBC (4.8-10.8) K/ul RBC (4.70-6.10) M/uL Hgb (14.0-18.0) g/dl POC Hgb 17.0 (14.0-18.0) g/dl Hct (42.0-52.0) % POC Hct 50 (42-52) % MCV (80.0-100.0) fL MCH (25.0-34.0) pg MCHC (32.0-36.0) g/dL RDW Std Deviation (36.4-46.3) fL RDW Coeff of Leti (11.5-14.5) % Plt Count (130-400) K/uL MPV (9.4-12.4) fL Immature Gran % (Auto) % Neut % (Auto) % Lymph % (Auto) % [place] % (Auto) % Eos % (Auto) % Baso % (Auto) % Neut # (Auto) (1.40-6.50) K/uL Lymph # (Auto) (1.2-3.4) K/uL [place] # (Auto) (0.11-0.59) K/uL Eos # (Auto) (0-0.50) K/uL Baso # (Auto) (0-0.2) K/uL Immature Gran # (Auto) (0.01-0.20) K/uL Absolute Nucleated RBC (0-0.12) K/uL Nucleated RBC % (auto) % POC Sodium 141 (135-144) mmol/L Sodium (136-145) mmol/L POC Potassium 3.8 (3.3-5.0) mmol/L Potassium (3.5-5.1) mmol/L POC Chloride 99 L (101-112) mmol/L Chloride (98-107) mmol/L Carbon Dioxide (21-32) mmol/L POC Total CO2 32 H (24-31) mmol/L Anion Gap (3-11) POC Anion Gap 14.0 L (16-25) mmol/L POC BUN 29 H (7-18) mg/dl BUN (6-23) mg/dl Creatinine (0.6-1.4) mg/dl POC Creatinine 1.4 H (0.6-1.3) mg/dl Est Cr Clr Drug Dosing ml/min Est GFR ( Amer) ml/min Est GFR (Non-Af Amer) ml/min BUN/Creatinine Ratio (10-20) Glucose (70-99(Fasting)) mg/dl POC Glucose (other) 159 H (70-99) mg/dl Lactate (0.4-2.0) mmol/L Calcium (8.5-10.1) mg/dl POC Ioniz Calcium [place] 1.01 L (1.12-1.32) mmol/l Total Bilirubin (0.2-1.0) mg/dl AST (13-39) U/L ALT (7-52) U/L Alkaline Phosphatase (34-104) U/L Troponin I High Sens (0-20) pg/ml Total Protein (6.0-8.3) gm/dl Albumin (3.4-5.0) gm/dl Globulin (2.5-4.0) gm/dl Albumin/Globulin Ratio (0.9-2) Lipase (11-82) U/L Urine Color Yellow Urine Appearance Clear (Clear) Urine pH 6.0 (4.5-7.5) Ur Specific [place] 1.043 H (1.000-1.030) Urine Protein Trace H (Negative) Urine Glucose (UA) Negative (Negative) Urine Ketones Negative (Negative) Urine Blood 1+ H (Negative) Urine Nitrite Negative (Negative) Urine Bilirubin Negative (Negative) Urine Urobilinogen Negative (Negative) Ur Leukocyte Esterase 1+ H (Negative) Urine WBC (Auto) >30 H (0-5) /hpf Urine RBC (Auto) 5-10 H (0-4) /hpf U Hyaline Cast (Auto) 1-5 (0-5) /lpf U Epithel Cells (Auto) 20-30 H (0-5) /lpf Urine Bacteria (Auto) 1+ H (Negative) Urine Crystals Not Reportable Calcium Oxalate Crystal Present A (None Prsent) SARS-CoV-2, RNA, NAAT NEGATIVE (NEGATIVE) Imaging Data Attestation: I personally reviewed and interpreted this imaging study as follows: MDM Narrative Prior records/ancillary studies reviewed. Triage Nursing notes reviewed. Additional history obtained from family. The patient's history was concerning for abdominal pain. Differential diagnosis: Etiologies such as appendicitis, diverticulitis, PUD, biliary pathology, UTI, pancreatitis, obstruction, mesenteric ischemia, aortic pathology, infections, inflammatory bowel disease, renal colic, as well as others were entertained. Physical examination findings: As above. ER treatment provided: An order was placed for continuous cardiac monitoring. The monitor shows a rate of 60-1 80 with a sinus rhythm per my Independent interpretation. IV fluids, i-STAT, antibiotics, Zofran, morphine were ordered Cefepime for urine infection. Prior urine cultures were reviewed On reassessment the patient felt better. Diagnostics interpreted by me: ECG: Ordered for abdominal pain EKG: Normal sinus, Q waves in the inferior lead, slight ST depression in the lateral leads, rate of 148. Impression sinus tachycardia with minimal depression in lateral leads interpreted by myself The labs Independently Interpreted by myself revealed leukocytosis, elevated lactate, hyperglycemia without DKA Imaging studies: Chest x-ray with no acute consolidation, pneumothorax or free air per my interpretation CT ABDOMEN & PELVIS With Contrast: Suprapubic urinary bladder catheter in place The solid organs demonstrate no acute process Normal gallbladder The stomach, small bowel, appendix and large bowel are grossly normal. What appears to be a small duodenal diverticulum incidentally noted in the region of the head of the pancreas No free air or free fluid Radiologist: Bradford Baum MD Consultation: A consultation was placed with the hospitalist. The case was discussed and diagnostics were reviewed. The patient was evaluated in the ER for further treatment. Exam and history seem consistent with nausea and vomiting with abdominal pain with concerns for sepsis from UTI. No prior urine culture for review. Patient was merely given IV fluids. Antibiotics were written for. Pain meds were written for. He was reassessed multiple times. He was immediately sent to CAT scan. Labs and diagnostics are independently interpreted by myself. CAT scan was read by radiology. Patient was reassessed multiple times. Medicine is consulted and the case was discussed. Medicine will evaluate for admission. By the evaluation outlined above emergent etiologies such as appendicitis, diverticulitis, PUD, biliary pathology, pancreatitis, obstruction, mesenteric ischemia, aortic pathology, inflammatory bowel disease, renal colic, as well as others were deemed relatively unlikely. The pt informed about the findings as listed above. All questions were answered and pleased with the treatment. The chart was completed utilizing [employer] Speech voice recognition software. Grammatical errors, random word insertions, pronoun errors, and incomplete s entences are an occassional consequence of this system due to software limitations, ambient noise, and hardware issues. Any formal questions or concerns about the content, text, or information contained within the body of this dictation should be directly addressed to the physician physician assistant for cl arification. Impression & Plan Acute UTI, Sepsis, Nausea & vomiting, Abdominal pain, acute, Acute dehydration Discharge Plan Visit Data Chief Complaint: Illness Stated Complaint: generalized illness, N/V ED Provider: Jose Eduardo Foster ED Midlevel Provider: Crista Maguire Discharge Problem: Acute UTI, Sepsis, Nausea & vomiting, Abdominal pain, acute, Acute dehydration Patient Disposition: Admitted As Inpatient Condition: Fair Forms Stand Alone Forms: [facility] [place] [employer] Prescriptions Prescriptions: No Action Hizentra 4 gram/20 mL (20 %) syringe See Rx Instructions subcut .COMPLEX Qty: 240 11RF Rx Instructions: INFUSE HIZENTRA 12 GM SQ WEEKLY albuterol sulfate [Ventolin HFA] 90 mcg/actuation HFA aerosol inhaler 2 puff INHALATION Q6H PRN (Reason: Shortness Of Breath Or Wheezing) Qty: 8.5 4RF diltiazem HCl 240 mg Capsule,Extended Release 24 Hr 240 mg PO QPM tamsulosin 0.4 mg Capsule 0.4 mg PO HS fluticasone propionate [Flonase Allergy Relief] 50 mcg/actuation [place],Suspension 2 spray INTRANASAL DAILY cyanocobalamin (vitamin B-12) 1,000 mcg Tablet, Sublingual 1,000 mcg SUBLINGUAL DAILY insulin glargine [Lantus Solostar U-100 Insulin] 100 unit/mL (3 mL) Insulin Pen 37 unit SUBCUT BID Rx Instructions: GMG HAS 78 UNITS BID. bumetanide 1 mg tablet 3 mg PO DAILY metoprolol succinate 25 mg tablet extended release 24 hr 37.5 mg PO DAILY rosuvastatin 40 mg tablet 40 mg PO HS naloxone 4 mg/actuation [place],Non-Aerosol 4 mg INTRANASAL DIRECTED PRN (Reason: OVERSEDATION) Rx Instructions: spray into nostril for suspected opioid overdose glipizide 5 mg Tablet Extended Release 24hr 5 mg PO DAILY magnesium oxide 500 mg Tablet 500 mg PO DAILY ergocalciferol (vitamin D2) [Vitamin D2] 1,250 mcg (50,000 unit) Capsule 1,250 mcg PO WK Rx Instructions: Sundays Trulicity 4.5 mg/0.5 mL Pen Injector 4.5 mg SUBCUT WK Label Comments: Takes on Sundays Rx Instructions: INJECT 1 PEN UNDER THE SKIN ONCE WEEKLY--PER GMG. gabapentin 800 mg tablet 800 mg PO Q6H phenazopyridine 200 mg tablet 200 mg PO Q8H PRN (Reason: Bladder Spasms) doxycycline monohydrate 100 mg Capsule 100 mg PO BID PRN (Reason: RESCUE KIT) Rx Instructions: RESCUE KIT--TAKE BID X 10 DAYS. pantoprazole [Protonix] 40 mg Tablet,Delayed Release (Dr/Ec) 40 mg PO DAILY cyclobenzaprine 5 mg tablet 5 mg PO TID PRN (Reason: MUSCLE SPASMS) duloxetine 30 mg capsule,delayed release(DR/EC) 30 mg PO DAILY oxycodone 10 mg Tablet 10 mg PO Q6H PRN (Reason: Pain) Rx Instructions: May take an additional 1/2 tab up to twice a day. methocarbamol 750 mg Tablet 750 mg PO BID insulin lispro 100 unit/mL Solution 40 - 45 unit SUBCUT ACHS finasteride 5 mg tablet 5 mg PO QAM potassium chloride 20 mEq tablet extended release 20 meq PO DAILY Rx Instructions: up to BID. hydroxyzine HCl 50 mg Tablet 50 mg PO TID PRN (Reason: Anxiety) famotidine [Acid Sheet Rock Sander (famotidine)] 20 mg tablet 20 mg PO HS clopidogrel 75 mg Tablet 75 mg PO QAM Qty: 30 1RF ezetimibe 10 mg Tablet 10 mg PO QAM Qty: 30 1RF aspirin [Chari Low Dose Aspirin] 81 mg Tablet,Delayed Release (Dr/Ec) 81 mg PO QAM Qty: 30 1RF Referrals Referrals: Yann Fraga MD [Primary Care Provider] -
[2022-03-31] MEDS ORDERED: SODIUM CHLORIDE 0.9% 1000ML 500 ML IV ONE (01:19)
[2022-03-31 01:33] LABS: Appearance Urine Clear (Clear); Bilirubin Urine Negative (Negative); Blood Urine 1+ (Negative); Color Urine Yellow; Epithelial Cell Urine Auto 20-30 /lpf (0-5); Glucose Urine UA Negative (Negative); Ketones Urine Negative (Negative); Leukocyte Esterase Urine 1+ (Negative); Nitrite Urine Negative (Negative); Protein Urine Trace (Negative); Specific Gravity Urine 1.043 (1.000-1.030); Urobilinogen Urine Negative (Negative); WBC Urine Automated >30 /hpf (0-5)
[2022-03-31] MEDS ORDERED: SODIUM CHLORIDE 0.45 % 1,000 ML IV STA (01:56)
--- NOTE | 2022-03-31 02:08 | History & Physical Report ---
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 Immunocompromised patient, history C VID chronic diastolic heart failure, patient on the dry side hx CAD status post stent hypertension, BP on the lower side hyperlipidemia on statin Rx asthma/COPD/hypersomnia on nocturnal home O2, improved after recent outpatient rescue kit course DM 2 insulin requiring, suboptimal control as of recent hemoglobin A1c of 10.9 last January 2022 chronic pain on narcotics Abnormal LFTs likely secondary to NAFLD, history hepatic steatosis on prior abdominal imaging anxiety/mood disorder, at baseline Medical telemetry CS, Daptomycin, Cefepime on the basis of pathogen history (Enterococcus; Pseudomonas with intermediate resistance to Zosyn as per records) IVF, follow lactic acid Basal bolus insulin adjusted for clear liquid diet for now, ISS BG goal 1 10-1 40, carb count coverage DVT prophylaxis. Lovenox subcu Full code Text document was generated using [employer] voice recognition software. It may contain grammatical or spelling errors. Kindly contact undersigned for clarification of any documentation item in question. History of Present Illness Chief Complaint: Abdominal pain pain, nausea, vomiting Primary Care Provider: Yann Fraga MD History obtained from patient and records. 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 Last confinement November 2021 for sepsis secondary to complicated UTI. No growth on cultures. Patient discharged on Levaquin course. Patient underwent suprapubic catheter placement for detrusor failure/recurrent UTIs at [facility] last month. 3 days ago, patient noted cough, shortness of breath symptoms improved with outpatient COPD rescue kit. Yesterday afternoon, patient woke up with achy lower abdominal pain associated with nausea, vomiting. No diarrhea symptoms. No chest pain, no SOB. Blood sugar lower than usual as per patient. IV cefepime administered at the ER for sepsis. Medical History as above Surgical History : Suprapubic catheter placement, TURP Family History : DM, heart disease Personal/Social history : Non-smoker, no EtOH intake, disabled Allergies Allergy/AdvReac Type Severity Reaction Status Date / Time atenolol Allergy Severe DEPRESSION/ Verified 03/31/22 00:22 SUICIDAL amoxicillin Allergy Intermediate "SEVERE" Verified 03/31/22 00:22 DIARRHEA celecoxib Allergy Intermediate FLUID Verified 03/31/22 00:22 RETENTION-WT GAIN clavulanic acid Allergy Intermediate "SEVERE" Verified 03/31/22 00:22 DIARRHEA fentanyl Allergy Intermediate Rash Verified 03/31/22 00:22 adhesive tape Allergy Mild RASH--? Verified 03/31/22 00:22 ADHESIVE ALLERGY fluoxetine AdvReac Severe HALLUCINATI Verified 03/31/22 00:22 ONS Home Medications Medication Instructions Recorded Confirmed Type fluticasone propionate 50 2 spray intranasal DAILY 03/15/18 03/31/22 History mcg/actuation nasal spray,suspension (Flonase Allergy Relief) diltiazem HCl 240 mg capsule,24 240 mg PO QPM 06/12/18 03/31/22 History hr,extended release tamsulosin 0.4 mg capsule 0.4 mg PO HS 12/10/18 03/31/22 History oxycodone 10 mg tablet 10 mg PO Q6H PRN Pain 05/02/20 03/31/22 History cyanocobalamin (vitamin B-12) 1,000 mcg sublingual DAILY 08/06/20 03/31/22 History 1,000 mcg sublingual tablet insulin glargine 100 unit/mL (3 37 unit subcut BID 08/06/20 03/31/22 History mL) subcutaneous pen (Lantus Solostar U-100 Insulin) bumetanide 1 mg tablet 3 mg PO DAILY 08/18/20 03/31/22 History metoprolol succinate 25 mg 37.5 mg PO DAILY 08/18/20 03/31/22 History tablet,extended release 24 hr naloxone 4 mg/actuation nasal spray 4 mg intranasal DIRECTED PRN 08/18/20 03/31/22 History OVERSEDATION rosuvastatin 40 mg tablet 40 mg PO HS 08/18/20 03/31/22 History finasteride 5 mg tablet 5 mg PO QAM 09/28/20 03/31/22 History insulin lispro 100 unit/mL 40 - 45 unit subcut ACHS 09/28/20 03/31/22 History subcutaneous solution methocarbamol 750 mg tablet 750 mg PO BID 09/28/20 03/31/22 History potassium chloride 20 mEq 20 meq PO DAILY 09/28/20 03/31/22 History tablet,extended release famotidine 20 mg tablet (Acid 20 mg PO HS 07/07/21 03/31/22 History Ribbon Blocker (famotidine)) hydroxyzine HCl 50 mg tablet 50 mg PO TID PRN Anxiety 07/07/21 03/31/22 History aspirin 81 mg tablet,delayed 81 mg PO QAM #30 tabs 07/08/21 03/31/22 Rx release (Chari Low Dose Aspirin) clopidogrel 75 mg tablet 75 mg PO QAM #30 tabs 07/08/21 03/31/22 Rx ezetimibe 10 mg tablet 10 mg PO QAM #30 tabs 07/08/21 03/31/22 Rx dulaglutide 4.5 mg/0.5 mL 4.5 mg subcut WK 12/06/21 03/31/22 History subcutaneous pen injector (Trulicity) ergocalciferol (vitamin D2) 1,250 1,250 mcg PO WK 12/06/21 03/31/22 History mcg (50,000 unit) capsule (Vitamin D2) gabapentin 800 mg tablet 800 mg PO Q6H 12/06/21 03/31/22 History glipizide 5 mg tablet, extended 5 mg PO DAILY 12/06/21 03/31/22 History release 24 hr magnesium oxide 500 mg tablet 500 mg PO DAILY 12/06/21 03/31/22 History albuterol sulfate 90 mcg/actuation 2 puff inhalation Q6H PRN 12/24/21 03/31/22 Rx aerosol inhaler (Ventolin HFA) Shortness Of Breath Or Wheezing #8.5 grams immun glob G 4 gram/20 mL (20 See Rx Instructions subcut 03/25/22 03/31/22 Rx %)-prol-IgA 0-50 mcg/mL .COMPLEX #240 mL subcutaneous syr (Hizentra) cyclobenzaprine 5 mg tablet 5 mg PO TID PRN MUSCLE SPASMS 03/31/22 03/31/22 History doxycycline monohydrate 100 mg 100 mg PO BID PRN RESCUE KIT 03/31/22 03/31/22 History capsule duloxetine 30 mg capsule,delayed 30 mg PO DAILY 03/31/22 03/31/22 History release pantoprazole 40 mg tablet,delayed 40 mg PO DAILY 03/31/22 03/31/22 History release (Protonix) phenazopyridine 200 mg tablet 200 mg PO Q8H PRN Bladder Spasms 03/31/22 03/31/22 History Past Med/Surg History Medical History Anxiety Benign prostatic hyperplasia with urinary obstruction BPH (benign prostatic hyperplasia) CAD (coronary artery disease) Cervical disc disorder Chronic bronchitis Chronic neck pain Chronic rhinitis Chronic sinusitis, unspecified 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 COPD (chronic obstructive pulmonary disease) Costochondritis Depression Diabetes mellitus, type II IDDM Diabetic neuropathy Dyslipidemia GERD (gastroesophageal reflux disease) Grade II diastolic dysfunction Hearing deficit RIGHT EAR DEAF Heartburn HLD (hyperlipidemia) HTN (hypertension) Kidney stones Mood disorder Narcotic dependence Nasal septal deviation On anticoagulant therapy ASA 81MG Osteoarthritis Pneumonia MAY 2018 Seasonal allergies Sleep apnea 2LPM VIA N/C Steatosis of liver (Unknown) Tobacco use Ureteral stone Vasodepressor syncope Surgical History History of colonoscopy History of esophagogastroduodenoscopy (EGD) History of lithotripsy Hx of transurethral resection of prostate S/P cardiac cath PCI to mid LAD S/P PICC central line placement WITH REMOVAL (JUNE 2018) Family History Grandmother Family history of diabetes mellitus Cancer Father Family history of high blood pressure FHx: heart disease Hypertension Sister Asthma Allergies Hypertension Mother Hearing loss Hypertension Uncle Hypertension Other Heart disease No family history of adverse response to anesthesia No family history of bleeding disorder Social History Smoking Status: Current every day smoker Tobacco Type: Smokeless Tobacco (Dip or Chew) Cigarettes Per Day: 1 can/2days; Second Hand Exposure: No; Hx Alcohol Use: No Hx Substance Use: No Preferred Language: Hebrew Communication Ability: Effective Visual Impairment: Limited 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 Beliefs That Will Affect Care: None marital status: Current Living Situation: Spouse Current Living Situation Comment: Home with spouse current occupational status: unemployed and disabled How many Children do You have: 3 Feels Safe at Home: Yes Assistive Devices: Wheelchair Review of Systems Review of Systems: As per HPI, all other systems reviewed and negative Physical Exam Physical Exam: GENERAL: Slightly uncomfortable, obese, no respiratory distress SKIN: Normal color, warm HEENT: [place] palpebral conjunctivae, no ptosis, dry buccal mucosa NECK : Supple, short neck, no tenderness CHEST : CTA, no tenderness HEART : Tachycardic, no obvious murmurs ABDOMEN: Suprapubic catheter in place, some distention, hypogastric tenderness EXTREMITIES : Minimal LE swelling , no LE tenderness, no other conspicuous deformities noted NEUROLOGIC : Coherent, no facial asymmetry, no other gross focality Results & Data Results & Data ([facility]) Vital Signs (Past 12 Hours) Vital Signs Temp Pulse Pulse Resp BP BP Pulse Ox 03/31/22 01:45 124 H 19 127/81 94 03/30/22 23:01 95 03/30/22 22:00 37 C 146 H 14 117/82 95 O2 Del Method 03/31/22 01:45 Room Air 03/30/22 23:01 Room Air 03/30/22 22:00 Room Air Laboratory Results Laboratory Results WBC 18.40 K/ul (4.8-10.8) H 03/30/22 23:11 RBC 5.88 M/uL (4.70-6.10) 03/30/22 23:11 Hgb 16.6 g/dl (14.0-18.0) 03/30/22 23:11 POC Hgb 17.0 g/dl (14.0-18.0) 03/30/22 23:20 Hct 48.8 % (42.0-52.0) 03/30/22 23:11 POC Hct 50 % (42-52) 03/30/22 23:20 MCV 83.0 fL (80.0-100.0) 03/30/22 23:11 MCH 28.2 pg (25.0-34.0) 03/30/22 23:11 MCHC 34.0 g/dL (32.0-36.0) 03/30/22 23:11 RDW Std Deviation 41.1 fL (36.4-46.3) 03/30/22 23:11 RDW Coeff of Leti 13.8 % (11.5-14.5) 03/30/22 23:11 Plt Count 359 K/uL (130-400) 03/30/22 23:11 MPV 11.0 fL (9.4-12.4) 03/30/22 23:11 Immature Gran % (Auto) 1.7 % 03/30/22 23:11 Neut % (Auto) 82.9 % 03/30/22 23:11 Lymph % (Auto) 9.1 % 03/30/22 23:11 Slope % (Auto) 5.4 % 03/30/22 23:11 Eos % (Auto) 0.4 % 03/30/22 23:11 Baso % (Auto) 0.5 % 03/30/22 23:11 Neut # (Auto) 15.24 K/uL (1.40-6.50) H 03/30/22 23:11 Lymph # (Auto) 1.68 K/uL (1.2-3.4) 03/30/22 23:11 Slope # (Auto) 0.99 K/uL (0.11-0.59) H 03/30/22 23:11 Eos # (Auto) 0.07 K/uL (0-0.50) 03/30/22 23:11 Baso # (Auto) 0.10 K/uL (0-0.2) 03/30/22 23:11 Immature Gran # (Auto) 0.32 K/uL (0.01-0.20) H 03/30/22 23:11 Absolute Nucleated RBC 0.03 K/uL (0-0.12) 03/30/22 23:11 Nucleated RBC % (auto) 0.2 % 03/30/22 23:11 POC Sodium 141 mmol/L (135-144) 03/30/22 23:20 Sodium 145 mmol/L (136-145) 03/30/22 23:11 POC Potassium 3.8 mmol/L (3.3-5.0) 03/30/22 23:20 Potassium 4.0 mmol/L (3.5-5.1) 03/30/22 23:11 POC Chloride 99 mmol/L (101-112) L 03/30/22 23:20 Chloride 104 mmol/L (98-107) 03/30/22 23:11 Carbon Dioxide 33 mmol/L (21-32) H 03/30/22 23:11 POC Total CO2 32 mmol/L (24-31) H 03/30/22 23:20 Anion Gap 8 (3-11) 03/30/22 23:11 POC Anion Gap 14.0 mmol/L (16-25) L 03/30/22 23:20 POC BUN 29 mg/dl (7-18) H 03/30/22 23:20 BUN 32 mg/dl (6-23) H 03/30/22 23:11 Creatinine 1.39 mg/dl (0.6-1.4) 03/30/22 23:11 POC Creatinine 1.4 mg/dl (0.6-1.3) H 03/30/22 23:20 Est Cr Clr Drug Dosing 73.1 ml/min 03/30/22 23:11 Est GFR ( Amer) 62.1 ml/min 03/30/22 23:11 Est GFR (Non-Af Amer) 53.6 ml/min 03/30/22 23:11 BUN/Creatinine Ratio 23.0 (10-20) H 03/30/22 23:11 Glucose 165 mg/dl (70-99(Fasting)) H 03/30/22 23:11 POC Glucose (other) 159 mg/dl (70-99) H 03/30/22 23:20 Lactate 2.5 mmol/L (0.4-2.0) H* 03/30/22 23:11 Calcium 8.8 mg/dl (8.5-10.1) 03/30/22 23:11 POC Ioniz Calcium [place]an 1.01 mmol/l (1.12-1.32) L 03/30/22 23:20 Total Bilirubin 0.5 mg/dl (0.2-1.0) 03/30/22 23:11 AST 126 U/L (13-39) H 03/30/22 23:11 ALT 69 U/L (7-52) H 03/30/22 23:11 Alkaline Phosphatase 68 U/L (34-104) 03/30/22 23:11 Troponin I High Sens 15.7 pg/ml (0-20) 03/30/22 23:11 Total Protein 7.0 gm/dl (6.0-8.3) 03/30/22 23:11 Albumin 3.9 gm/dl (3.4-5.0) 03/30/22 23:11 Globulin 3.1 gm/dl (2.5-4.0) 03/30/22 23:11 Albumin/Globulin Ratio 1.3 (0.9-2) 03/30/22 23:11 Lipase 20 U/L (11-82) 03/30/22 23:11 SARS-CoV-2, RNA, NAAT NEGATIVE (NEGATIVE) 03/30/22 23:[address] abdomen pelvis initial read: Suprapubic urinary bladder catheter in place The solid organs demonstrate no acute process Normal gallbladder The stomach, small bowel, appendix and large bowel are grossly normal. What appears to be a small duodenal diverticulum incidentally noted in the region of the head of the pancreas No free air or free fluid Chest x-ray as per my interpretation: Atelectasis, elevated right hemidiaphragm, cardiomegaly EKG as per my interpretation :Rate 150, sinus tachycardia, normal axis, ST depression lateral leads
[2022-03-31 02:17] LABS: Calcium Oxalate Crystals Urine Present (None Prsent)
[2022-03-31 02:18] LABS: Bacteria Urine Automated 1+ (Negative)
[2022-03-31] MEDS ORDERED: DAPTOmycin 575 MG in SYRINGE 0 ML IV STA (02:36)
[2022-03-31] MEDS: MAGNESIUM SULFATE / D5W 1 GM/100 ML BAG IV SCH ×2 (04:02→05:43)
[2022-03-31] MEDS ORDERED: CARBOHYDRATES FOR HYPOGLYCEMIA PO PRN (04:32)
[2022-03-31] MEDS ORDERED: PROMETHAZINE HCL 12.5 MG in SODIUM CHLORIDE 0.9% 50 ML IV PRN (04:32)
[2022-03-31] MEDS ORDERED: GLUCAGON FOR INJ 1 MG VIAL SQ PRN (04:32)
[2022-03-31] MEDS ORDERED: hydrOXYzine HCl 25 MG TAB PO PRN (04:32)
[2022-03-31] MEDS ORDERED: GLUCOSE 10 TAB/TUBE PO PRN (04:32)
[2022-03-31] MEDS ORDERED: GLUCOSE 40% GEL 15 GM TUBE PO PRN (04:32)
[2022-03-31] MEDS ORDERED: DEXTROSE 50% 50 ML SYRINGE IV PRN (04:32)
[2022-03-31] MEDS: oxyCODONE HCL IR 5 MG TAB (IMMEDIATE RELEASE) PO PRN ×3 (05:27→20:32)
[2022-03-31] MEDS: INSULIN ASPART PER UNIT SC SCH ×4 (05:56→22:41)
[2022-03-31] MEDS: GABAPENTIN 800 MG TAB PO SCH ×4 (06:01→22:40)
[2022-03-31 06:33] LABS: Basophils # (auto) 0.09 K/uL (0-0.2); Basophils % (auto) 0.7 %; Eosinophils # (auto) 0.09 K/uL (0-0.50); Eosinophils % (auto) 0.7 %; Hematocrit (blood only) 42.6 % (42.0-52.0); Hemoglobin 14.1 g/dl (14.0-18.0); Immature Granulocytes # (auto) 0.23 K/uL (0.01-0.20); Immature Granulocytes % (auto) 1.7 %; Lymphocytes # (auto) 1.77 K/uL (1.2-3.4); Lymphocytes % (auto) 13.2 %; Mean Corpuscular Hemoglobin 27.8 pg (25.0-34.0); Mean Corpuscular Hgb Conc 33.1 g/dL (32.0-36.0); Mean Corpuscular Volume 83.9 fL (80.0-100.0); Mean Platelet Volume 11.2 fL (9.4-12.4); Monocytes # (auto) 0.93 K/uL (0.11-0.59); Monocytes % (auto) 6.9 %; Neutrophils # (auto) 10.34 K/uL (1.40-6.50); Neutrophils % (auto) 76.8 %; Platelet Count 284 K/uL (130-400); RDW Standard Deviation 42.7 fL (36.4-46.3); Red Blood Count 5.08 M/uL (4.70-6.10); White Blood Count 13.45 K/ul (4.8-10.8)
[2022-03-31 06:40] LABS: Albumin Globulin Ratio 1.2 (0.9-2); BUN Creatinine Ratio 23.6 (10-20); Bilirubin,Total 0.4 mg/dl (0.2-1.0); Calcium 7.3 mg/dl (8.5-10.1); Creatinine Clr Calc Pharmacy 95.8 ml/min; Est GFR (African American) 86.1 ml/min; Est GFR (Non-African American) 74.3 ml/min; Globulin 2.5 gm/dl (2.5-4.0); Magnesium 1.9 mg/dl (1.7-2.4); Potassium 3.8 mmol/L (3.5-5.1); Total Protein 5.5 gm/dl (6.0-8.3)
--- NOTE | 2022-03-31 07:29 | XRay Report ---
XR chest 1V portable HISTORY: 61 years-old Male pain acute chest and abdominal pain COMPARISON: CT abdomen and pelvis of same day, chest radiograph 12/06/2021 TECHNIQUE: AP view of the chest FINDINGS: Cardiomediastinal and hilar silhouettes are unchanged. Coronary arterial stenting. Mild right hemidia phragmatic elevation. No pneumothorax, pleural effusion, airspace consolidation or overt pulmonary ed gianfranco. Bones of the chest appear grossly intact. IMPRESSION: No acute process. ACT 112: Negative or not required by law. The above report was generated using voice recognition software. It may contain grammatical, syntax o r spelling errors. Electronically signed by: Skyler Whittaker M.D. 03/31/2022 7:28 AM
--- NOTE | 2022-03-31 08:08 | CT Scan Report ---
ABDOMEN AND PELVIS CT WITH IV CONTRAST CT DOSE: 2008.19 mGy.cm HISTORY: Acute severe generalized abdominal pain severe pain TECHNIQUE: Multiaxial CT images of the abdomen and pelvis were performed following the IV administrat ion of 86 cc of Optiray, A dose lowering technique was utilized adhering to the principles of ALARA. COMPARISON STUDY: CTA chest with CT abdomen and pelvis 12/06/2021 FINDINGS: Clear lung bases. No pneumatosis or pneumoperitoneum. Imaged inferior cardiac chambers are unremarkable. Unremarkable spleen, mildly atrophic pancreas, gallbladder and adrenal glands. Hepatic steatosis with mild hepatomegaly. Patency of the hepatic and portal veins. There are a few punctate nonobstructing bilateral renal calculi redemonstrated. Mild nonspecific bila teral perinephric stranding. No ureteral calculi or hydronephrosis identified. Mild left-sided pelvoc aliectasis. Decompressed urinary bladder with suprapubic catheter in place. Urinary bladder wall thic kening. Atherosclerosis of the aorta without aneurysm. No lymphadenopathy. Duodenal diverticulum. No bowel obstruction or bowel wall thickening. Moderate colonic fecal retentio n. Normal appendix. No ascites or mesenteric inflammation. Unremarkable soft tissues. Degenerative ch anges of the spine, pelvis and hips. IMPRESSION: 1. No acute intra-abdominal or intrapelvic abnormality. 2. No bowel obstruction or bowel wall thickening. 3. Punctate nonobstructing bilateral nephrolithiasis. 4. Hepatic steatosis. 5. Suprapubic urinary bladder catheter in place. ACT 112: Negative or not required by law. The above report was generated using voice recognition software. It may contain grammatical, syntax o r spelling errors. Electronically signed by: Skyler Whittaker M.D. 03/31/2022 8:06 AM
[2022-03-31] MEDS: FLUTICASONE PROPIONATE NA SPR 16 GM BTL SCH (09:22)
[2022-03-31] MEDS: METHOCARBAMOL 750 MG TABLET PO SCH ×2 (09:22→22:41)
[2022-03-31] MEDS: METOPROLOL SUCC 25MG EXT REL TAB PO SCH (09:23)
[2022-03-31] MEDS: PANTOprazole 40 MG TAB PO SCH (09:24)
[2022-03-31] MEDS: FINASTERIDE 5 MG TAB PO SCH (09:24)
[2022-03-31] MEDS: DULoxetine HCL 30 MG CAP PO SCH (09:25)
[2022-03-31] MEDS: CLOPIDOGREL BISULFATE 75 MG TAB PO SCH (09:25)
[2022-03-31] MEDS: ASPIRIN 81 MG ECTAB PO SCH (09:25)
[2022-03-31] MEDS: EZETIMIBE 10 MG TABLET PO SCH (09:25)
[2022-03-31] MEDS: ENOXAPARIN INJ 40 MG/0.4 ML SYR SQ SCH (09:26)
[2022-03-31] MEDS: LANTUS PER UNIT CHARGE SQ SCH ×2 (09:26→22:41)
[2022-03-31] MEDS: CEFEPIME 2,000 MG in SYRINGE 0 ML IV SCH ×2 (10:18→18:41)
--- NOTE | 2022-03-31 12:47 | Electrocardiogram Report ---
Test Reason : Blood Pressure : / mmHG Vent. Rate : 148 BPM Atrial Rate : 148 BPM P-R Int : 104 ms QRS Dur : 074 ms QT Int : 328 ms P-R-T Axes : 000 032 076 degrees QTc Int : [address] depression in multiple leads, may be rate related Abnormal ECG When compared with ECG of 07-DEC-2021 05:51, HR has increased by [address] depression in multiple leads now present Confirmed by Luke Bonner ([id number]) on 03/31/2022 12:47:03 PM Referred By: REFERRED SELF Confirmed By:Luke Bonner
--- NOTE | 2022-03-31 12:47 | Urology Consultation ---
Date of Consultation March 31, 2022 Assessment & Plan (1) Complicated UTI (urinary tract infection): (2) Suprapubic catheter: Plan 61yo/M with a suprapubic catheter admitted with complicated UTI. Urology consulted for suprapubic catheter, UTI. Patient reports his suprapubic catheter was initially placed on February 24. He had his first catheter exchange last week in office with Dr. Valdivia of [facility] urology. He is afebrile and hemodynamically stable. Labs show leukocytosis improving from 1812 today and normal renal function. Urine and blood cultures are pending. He is on IV cefepime and daptomycin. His suprapubic catheter is intact and draining clear yellow urine. Continue to monitor. There is no indication for catheter exchange at this time. Recommend continuing with supportive care and antibiotic therapy. Follow cultures and tailor as data becomes available. Patient can continue with catheter exchanges and follow-up with [facility] urology on discharge. Urology will sign-off. Please contact us any further questions, concerns, or change in patient status. Supervising Physician Co-Signing Physician Notes I have discussed Mr. Marie's case with BILLIE Martines and agree with the above documentation. SP tube is draining well. Recommend continuing antibiotics and supportive care while cultures are pending. Can narrow coverage as further culture data becomes available. Would hold off on suprapubic tube exchange for now. He can follow-up with his primary urologist as an outpatient. 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 On arrival he was afebrile and hemodynamically stable. Labs revealed a leukocytosis of 18 and normal renal function. Urinalysis with 1+ blood, 1+ LE, 1+bacteria. Urine and blood cultures are pending. On IV cefepime and daptomycin. CT abdomen pelvis shows a few punctate nonobstructing bilateral renal calculi redemonstrated. Mild nonspecific bilateral perinephric stranding. No ureteral calculi or hydronephrosis identified. Mild left-sided pelvocaliectasis. Decompressed urinary bladder with suprapubic catheter in place. Urinary bladder wall thickening. Urology consulted for suprapubic catheter, UTI. Patient underwent suprapubic catheter placement for detrusor failure/recurrent UTIs at [facility] last month. Patient examined at bedside in the ED. Awake, resting in bed on arrival. No acute distress. Reports he had his suprapubic catheter first placed on February 24. He had the catheter exchanged for the first time last week in office with Dr. Valdivia of [facility] urology. States he did not get his usual dose of antibiotics following the catheter exchange. Suprapubic catheter is intact, draining clear yellow urine. No redness or drainage noted around site. Reports pain has improved. He denies abdominal, suprapubic, and flank pain at present. Denies fevers or chills. Denies nausea or vomiting at present. Has been able to keep down a few sips of water. Allergies Allergy/AdvReac Type Severity Reaction Status Date / Time atenolol Allergy Severe DEPRESSION/ Verified 03/31/22 00:22 SUICIDAL amoxicillin Allergy Intermediate "SEVERE" Verified 03/31/22 00:22 DIARRHEA celecoxib Allergy Intermediate FLUID Verified 03/31/22 00:22 RETENTION-WT GAIN clavulanic acid Allergy Intermediate "SEVERE" Verified 03/31/22 00:22 DIARRHEA fentanyl Allergy Intermediate Rash Verified 03/31/22 00:22 adhesive tape Allergy Mild RASH--? Verified 03/31/22 00:22 ADHESIVE ALLERGY fluoxetine AdvReac Severe HALLUCINATI Verified 03/31/22 00:22 ONS Home Medications Medication Instructions Recorded Confirmed Type fluticasone propionate 50 2 spray intranasal DAILY 03/15/18 03/31/22 History mcg/actuation nasal spray,suspension (Flonase Allergy Relief) diltiazem HCl 240 mg capsule,24 240 mg PO QPM 06/12/18 03/31/22 History hr,extended release tamsulosin 0.4 mg capsule 0.4 mg PO HS 12/10/18 03/31/22 History oxycodone 10 mg tablet 10 mg PO Q6H PRN Pain 05/02/20 03/31/22 History cyanocobalamin (vitamin B-12) 1,000 mcg sublingual DAILY 08/06/20 03/31/22 History 1,000 mcg sublingual tablet insulin glargine 100 unit/mL (3 37 unit subcut BID 08/06/20 03/31/22 History mL) subcutaneous pen (Lantus Solostar U-100 Insulin) bumetanide 1 mg tablet 3 mg PO DAILY 08/18/20 03/31/22 History metoprolol succinate 25 mg 37.5 mg PO DAILY 08/18/20 03/31/22 History tablet,extended release 24 hr naloxone 4 mg/actuation nasal spray 4 mg intranasal DIRECTED PRN 08/18/20 03/31/22 History OVERSEDATION rosuvastatin 40 mg tablet 40 mg PO HS 08/18/20 03/31/22 History finasteride 5 mg tablet 5 mg PO QAM 09/28/20 03/31/22 History insulin lispro 100 unit/mL 40 - 45 unit subcut ACHS 09/28/20 03/31/22 History subcutaneous solution methocarbamol 750 mg tablet 750 mg PO BID 09/28/20 03/31/22 History potassium chloride 20 mEq 20 meq PO DAILY 09/28/20 03/31/22 History tablet,extended release famotidine 20 mg tablet (Acid 20 mg PO HS 07/07/21 03/31/22 History Apparel Cutter (famotidine)) hydroxyzine HCl 50 mg tablet 50 mg PO TID PRN Anxiety 07/07/21 03/31/22 History aspirin 81 mg tablet,delayed 81 mg PO QAM #30 tabs 07/08/21 03/31/22 Rx release (Chari Low Dose Aspirin) clopidogrel 75 mg tablet 75 mg PO QAM #30 tabs 07/08/21 03/31/22 Rx ezetimibe 10 mg tablet 10 mg PO QAM #30 tabs 07/08/21 03/31/22 Rx dulaglutide 4.5 mg/0.5 mL 4.5 mg subcut WK 12/06/21 03/31/22 History subcutaneous pen injector (Trulicity) ergocalciferol (vitamin D2) 1,250 1,250 mcg PO WK 12/06/21 03/31/22 History mcg (50,000 unit) capsule (Vitamin D2) gabapentin 800 mg tablet 800 mg PO Q6H 12/06/21 03/31/22 History glipizide 5 mg tablet, extended 5 mg PO DAILY 12/06/21 03/31/22 History release 24 hr magnesium oxide 500 mg tablet 500 mg PO DAILY 12/06/21 03/31/22 History albuterol sulfate 90 mcg/actuation 2 puff inhalation Q6H PRN 12/24/21 03/31/22 Rx aerosol inhaler (Ventolin HFA) Shortness Of Breath Or Wheezing #8.5 grams immun glob G 4 gram/20 mL (20 See Rx Instructions subcut 03/25/22 03/31/22 Rx %)-prol-IgA 0-50 mcg/mL .COMPLEX #240 mL subcutaneous syr (Hizentra) cyclobenzaprine 5 mg tablet 5 mg PO TID PRN MUSCLE SPASMS 03/31/22 03/31/22 History doxycycline monohydrate 100 mg 100 mg PO BID PRN RESCUE KIT 03/31/22 03/31/22 History capsule duloxetine 30 mg capsule,delayed 30 mg PO DAILY 03/31/22 03/31/22 History release pantoprazole 40 mg tablet,delayed 40 mg PO DAILY 03/31/22 03/31/22 History release (Protonix) phenazopyridine 200 mg tablet 200 mg PO Q8H PRN Bladder Spasms 03/31/22 03/31/22 History Patient History Medical History Anxiety Benign prostatic hyperplasia with urinary obstruction BPH (benign prostatic hyperplasia) CAD (coronary artery disease) Cervical disc disorder Chronic bronchitis Chronic neck pain Chronic rhinitis Chronic sinusitis, unspecified 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 COPD (chronic obstructive pulmonary disease) Costochondritis Depression Diabetes mellitus, type II IDDM Diabetic neuropathy Dyslipidemia GERD (gastroesophageal reflux disease) Grade II diastolic dysfunction Hearing deficit RIGHT EAR DEAF Heartburn HLD (hyperlipidemia) HTN (hypertension) Kidney stones Mood disorder Narcotic dependence Nasal septal deviation On anticoagulant therapy ASA 81MG Osteoarthritis Pneumonia MAY 2018 Seasonal allergies Sleep apnea 2LPM VIA N/C Steatosis of liver (Unknown) Tobacco use Ureteral stone Vasodepressor syncope Surgical History History of colonoscopy History of esophagogastroduodenoscopy (EGD) History of lithotripsy Hx of transurethral resection of prostate S/P cardiac cath PCI to mid LAD S/P PICC central line placement WITH REMOVAL (JUNE 2018) Family History Grandmother Family history of diabetes mellitus Cancer Father Family history of high blood pressure FHx: heart disease Hypertension Sister Asthma Allergies Hypertension Mother Hearing loss Hypertension Uncle Hypertension Other Heart disease No family history of adverse response to anesthesia No family history of bleeding disorder Social History Smoking Status: Current every day smoker Tobacco Type: Smokeless Tobacco (Dip or Chew) Cigarettes Per Day: 1 can/2days; Second Hand Exposure: No; Hx Alcohol Use: No Hx Substance Use: No Preferred Language: Bengali Communication Ability: Effective Visual Impairment: Limited Yard Pilot Required: No Beliefs That Will Affect Care: None marital status: Current Living Situation: Spouse Current Living Situation Comment: Home with spouse current occupational status: unemployed and disabled How many Children do You have: 3 Feels Safe at Home: Yes Assistive Devices: Oxygen - Continuous and Wheelchair Review of Systems Review of Systems: All systems reviewed & are unremarkable except as noted in HPI & below Physical Exam Constitutional: + obese; no acute distress Neck: normal visual inspection Respiratory: no respiratory distress and no labored breathing Gastrointestinal (Abdomen): Percussion/Palpation: abdomen soft; abdomen nontender Musculoskeletal: Head/Neck/Chest: normocephalic Skin: Warm and dry Neurologic: awake Psychiatric: Orientation: alert, oriented x 3 and cooperative Genitourinary: Suprapubic catheter intact, draining clear yellow urine Results & Data ([facility] Vital Signs (Past 12 Hours) Vital Signs Temp Pulse Pulse Resp BP BP Pulse Ox 03/31/22 11:25 37 C 81 19 141/83 H 92 03/31/22 11:24 03/31/22 10:30 93 H 15 93 03/31/22 10:30 135/80 03/31/22 10:00 79 17 96 03/31/22 10:00 118/72 03/31/22 09:30 84 15 94 03/31/22 09:30 134/92 03/31/22 09:00 78 17 93 03/31/22 09:00 131/74 03/31/22 08:30 74 15 92 03/31/22 08:30 123/73 03/31/22 08:00 82 16 92 03/31/22 08:00 124/75 03/31/22 07:30 75 15 91 03/31/22 07:00 84 15 91 03/31/22 07:00 121/74 03/31/22 06:17 16 115/77 95 03/31/22 03:50 94 03/31/22 03:45 103 H 20 132/87 88 L 03/31/22 01:45 124 H 19 127/81 94 Pulse Ox O2 Del Method O2 Del Method O2 Flow Rate O2 Flow Rate 03/31/22 11:25 Nasal Cannula 2 03/31/22 11:24 92 Nasal Cannula 2 03/31/22 10:30 03/31/22 10:30 03/31/22 10:00 03/31/22 10:00 03/31/22 09:30 03/31/22 09:30 03/31/22 09:00 03/31/22 09:00 03/31/22 08:30 03/31/22 08:30 03/31/22 08:00 03/31/22 08:00 03/31/22 07:30 03/31/22 07:00 03/31/22 07:00 03/31/22 06:17 Nasal Cannula 2 03/31/22 03:50 Nasal Cannula 2 03/31/22 03:45 Room Air 03/31/22 01:45 Room Air PG Care Time/CCT Total # of Minutes Spent Total Time Spent with Patient: Total time spent is greater than 50% in coordination of care (as documented) at patient's floor/unit and/or counseling patient: Coding Level of Care Code INP/OBS CONSULT LVL 3, 45 MIN Diagnoses Complicated UTI (urinary tract infection) N39.0 Suprapubic catheter Z93.59
--- NOTE | 2022-03-31 14:10 | Hospitalist Progress Note ---
Date of Service March 31, 2022 Assessment & Plan (1) Suprapubic catheter: (2) Severe sepsis: Plan 61-year-old male with PMH of recurrent UTI, BPH/urinary retention/detrusor failure status post suprapubic catheter placement, chronic pain on narcotics, anxiety/mood disorder, chronic diastolic heart failure [EF 55%, TTE 2021], CAD status post stent, HTN, HLD, asthma/COPD/hypersomnia on nocturnal home O2 3 L, common variable immunodeficiency, DM2 presented to the ED 03/31 w/ c/o 1 day history of lower abdominal pain associated with nausea and vomiting, no diarrhea symptoms or chest pain or shortness of breath. Of note, patient underwent suprapubic catheter placement for detrusor failure/recurrent UTIs at [facility] last month. He is being managed for the following: Severe sepsis POA: Admit admissiontachycardia, leukocytosis, elevated lactate Catheter associated UTI Patient has extensive genitourinary history [see above] and has suprapubic catheter Recurrent UTI hx, Enterococcus; Pseudomonas with intermediate resistance to Zosyn as per records Patient presents with 1 day history of lower abdominal pain Admitting CTAP: No acute findings. Admitting CXR with no acute process. 04/09 urine culture: Pending 03/30 blood culture: Pending WBC trending down, lactate normalized, patient afebrile. Continue with cefepime 03/31 and daptomycin 03/31. Taper once more C/S available Urology consult, await recs Other chronic medical conditions: Common variable immunodeficiency HFpEF, CAD status post stent, HTN, HLD: Home aspirin, Bumex, Plavix, diltiazem, ezetimibe, metoprolol, potassium tablet, rosuvastatin/hold until on dapto Asthma/COPD/hypersomnia on nocturnal 3 L home oxygen DM2: Suboptimal control, A1c of 10.9 last January, continue with sliding scale insulin while in hospital, closely follow-up with PCP/diabetic clinic on discharge. Chronic pain on narcotics, resume home meds: Gabapentin, oxycodone, methocarbamol Abnormal LFT, likely secondary to NAFLD, history of hepatic steatosis on prior abdominal imaging Anxiety/mood disorder: Continue with home meds, duloxetine, hydroxyzine DVT prophylaxis. Lovenox subcu Full code Admission and Anticipated Discharge Date Admission Date: March 31, 2022 Subjective Patient seen and examined at bedside as a follow-up of severe sepsis secondary to complicated UTI/suprapubic catheter associated. Patient was lying in bed, on room air, NAD, reports that " the bed is not comfortable, it is hurting his back". Patient seemed frustrated about being held up in the ED for long and stated that he will leave AMA as it is uncomfortable for him. Patient updated about his current status of severe sepsis secondary to UTI which needs hospital treatment for now and if not treated his sepsis will get complicated leading up to severe infection including which patient verbalized understanding of. Patient was counseled to have patience, he will get bed upstairs as they clear up and communicated with patient's RN regarding patient's issues. Continue with patient's home pain medication dose. Patient reports improvement in his lower belly pain which he presented with. Patient denies any fever/ fu rther nausea & vomiting/sore throat/cough/chest pain/palpitation/other review of symptoms. Physical Exam Physical Exam: GENERAL: Alert and oriented x3. NAD, on RA. Obese class II. HEENT: No pallor, no icterus. Pupils equal, round and reactive to light. Oral mucosa moist. NECK: No JVD, no neck masses. HEART: S1 and S2 heard. Regular rate and rhythm. No murmur, no gallop. RESPIRATORY SYSTEM: Normal AP diameter. No accessory muscle use. No wheezing, no crackles. ABDOMEN: Soft, bowel sounds present, nontender, no distention. Suprapubic catheter w/ no erythema around the entry point, yellow urine collection noted. CENTRAL NERVOUS SYSTEM: No facial droop. Speech is clear. Obeys simple c ommands. Moves extremities. EXTREMITIES: No edema, no erythema seen. Results & Data Results & Data ([facility]) Vital Signs (Past 12 Hours) Vital Signs Temp Pulse Pulse Resp BP BP Pulse Ox 03/31/22 11:25 37 C 81 19 141/83 H 92 03/31/22 11:24 03/31/22 10:30 93 H 15 93 03/31/22 10:30 135/80 03/31/22 10:00 79 17 96 03/31/22 10:00 118/72 03/31/22 09:30 84 15 94 03/31/22 09:30 134/92 03/31/22 09:00 78 17 93 03/31/22 09:00 131/74 03/31/22 08:30 74 15 92 03/31/22 08:30 123/73 03/31/22 08:00 82 16 92 03/31/22 08:00 124/75 03/31/22 07:30 75 15 91 03/31/22 07:00 84 15 91 03/31/22 07:00 121/74 03/31/22 06:17 16 115/77 95 03/31/22 03:50 94 03/31/22 03:45 103 H 20 132/87 88 L Pulse Ox O2 Del Method O2 Del Method O2 Flow Rate O2 Flow Rate 03/31/22 11:25 Nasal Cannula 2 03/31/22 11:24 92 Nasal Cannula 2 03/31/22 10:30 03/31/22 10:30 03/31/22 10:00 03/31/22 10:00 03/31/22 09:30 03/31/22 09:30 03/31/22 09:00 03/31/22 09:00 03/31/22 08:30 03/31/22 08:30 03/31/22 08:00 03/31/22 08:00 03/31/22 07:30 03/31/22 07:00 03/31/22 07:00 03/31/22 06:17 Nasal Cannula 2 03/31/22 03:50 Nasal Cannula 2 03/31/22 03:45 Room Air
[2022-03-31] MEDS: FAMOTIDINE 20 MG TAB PO SCH (20:22)
[2022-03-31] MEDS: TAMSULOSIN HCL 0.4 MG CAP PO SCH (20:22)
[2022-03-31] MEDS: dilTIAZem HCL 240 MG CAPCR PO SCH (20:22)
[2022-04-01] MEDS: CEFEPIME 2,000 MG in SYRINGE 0 ML IV SCH ×3 (01:50→17:21)
[2022-04-01] MEDS: oxyCODONE HCL IR 5 MG TAB (IMMEDIATE RELEASE) PO PRN ×4 (03:21→22:07)
[2022-04-01] MEDS: DAPTOmycin 575 MG in SYRINGE 0 ML IV SCH (04:49)
[2022-04-01] MEDS: GABAPENTIN 800 MG TAB PO SCH ×3 (04:53→17:21)
[2022-04-01 06:40] LABS: Hemoglobin 13.6 g/dl (14.0-18.0); Mean Corpuscular Hemoglobin 28.2 pg (25.0-34.0); Mean Corpuscular Hgb Conc 33.2 g/dL (32.0-36.0); Mean Corpuscular Volume 84.9 fL (80.0-100.0); Mean Platelet Volume 10.8 fL (9.4-12.4); Platelet Count 268 K/uL (130-400); RDW Coefficient of Variation 14.6 % (11.5-14.5); RDW Standard Deviation 44.7 fL (36.4-46.3); Red Blood Count 4.83 M/uL (4.70-6.10); White Blood Count 10.72 K/ul (4.8-10.8)
[2022-04-01 07:04] LABS: Calcium 8.1 mg/dl (8.5-10.1); Potassium 4.1 mmol/L (3.5-5.1)
[2022-04-01 07:10] LABS: BUN Creatinine Ratio 15.7 (10-20); Creatinine Clr Calc Pharmacy 94.7 ml/min; Est GFR (African American) 84.2 ml/min; Est GFR (Non-African American) 72.7 ml/min; Phosphorus 3.5 mg/dl (2.5-4.9)
[2022-04-01 09:03] LABS: A calco-baum cmplx NotReported Not Detected (NotDetected); Bact fragilis Not Reported Not Detected (NotDetected); C auris Not Reported Not Detected (NotDetected); Calbicans Not Reported Not Detected (NotDetected); Candida glabrata Not Reported Not Detected (NotDetected); Candida krusei Not Reported Not Detected (NotDetected); Cneoformans/gatti Not Reported Not Detected (NotDetected); Cparapsilosis Not Reported Not Detected (NotDetected); Ctropicalis Not Reported Not Detected (NotDetected); E cloacae compx Not Reported Not Detected (NotDetected); Efaecalis Not Reported Not Detected (NotDetected); Efaecium Not Reported Not Detected (NotDetected); Enterobacterales Not Reported Not Detected (NotDetected); Escherichia coli Not Reported Not Detected (NotDetected); H influenzae Not Reported Not Detected (NotDetected); K aerogenes Not Reported Not Detected (NotDetected); Koxytoca Not Reported Not Detected (NotDetected); Kpneumoniae grp Not Reported Not Detected (NotDetected); Lmonocyt Not Reported Not Detected (NotDetected); N meningitidis Not Reported Not Detected (NotDetected); P aeruginosa Not Reported Not Detected (NotDetected); Proteus spp Not Reported Not Detected (NotDetected); Salmonella spp Not Reported Not Detected (NotDetected); Smarcescens Not Reported Not Detected (NotDetected); Staph lugdunensis Not Reported Not Detected (NotDetected); Staph spp. Not Reported Not Detected (NotDetected); Staphaureus Not Reported Not Detected (NotDetected); Staphepi Not Reported Not Detected (NotDetected); Stenmaltophilia Not Reported Not Detected (NotDetected); Strep agal(GrpB) Not Reported Not Detected (NotDetected); Strep pneum Not Reported Not Detected (NotDetected); Strep pyog (GrpA) Not Reported Not Detected (NotDetected); Strep spp Not Reported DETECTED (NotDetected)
[2022-04-01 09:08] LABS: Streptococcus spp DETECTED (NotDetected)
[2022-04-01] MEDS: PHENAZOPYRIDINE HCL 200 MG TAB PO PRN (09:24)
[2022-04-01] MEDS: DULoxetine HCL 30 MG CAP PO SCH (09:24)
[2022-04-01] MEDS: ENOXAPARIN INJ 40 MG/0.4 ML SYR SQ SCH (09:25)
[2022-04-01] MEDS: METHOCARBAMOL 750 MG TABLET PO SCH ×2 (09:25→20:26)
[2022-04-01] MEDS: EZETIMIBE 10 MG TABLET PO SCH (09:26)
[2022-04-01] MEDS: METOPROLOL SUCC 25MG EXT REL TAB PO SCH (09:29)
[2022-04-01] MEDS: ASPIRIN 81 MG ECTAB PO SCH (09:29)
[2022-04-01] MEDS: PANTOprazole 40 MG TAB PO SCH (09:29)
[2022-04-01] MEDS: FINASTERIDE 5 MG TAB PO SCH (09:29)
[2022-04-01] MEDS: CLOPIDOGREL BISULFATE 75 MG TAB PO SCH (09:29)
[2022-04-01] MEDS: FLUTICASONE PROPIONATE NA SPR 16 GM BTL SCH (09:30)
[2022-04-01] MEDS: LANTUS PER UNIT CHARGE SQ SCH ×2 (09:40→20:46)
[2022-04-01] MEDS: INSULIN ASPART PER UNIT SC SCH ×4 (09:40→20:47)
--- NOTE | 2022-04-01 15:54 | Hospitalist Progress Note ---
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 Of note, patient underwent suprapubic catheter placement for detrusor failure/recurrent UTIs at [facility] last month. He is being managed for the following: Severe sepsis POA: Admit admissiontachycardia, leukocytosis, elevated lactate Catheter associated UTI Patient has extensive genitourinary history [see above] and has suprapubic catheter Recurrent UTI hx, Enterococcus; Pseudomonas with intermediate resistance to Zosyn as per records Patient presents with 1 day history of lower abdominal pain Admitting CTAP: No acute findings. Admitting CXR with no acute process. 04/09 urine culture: no growth, repeat urine cx 04/01. 03/30 blood culture: 1of4 positive for GPC in chains 04/01 blood culture: pending 04/01 ECHO w/ no vegetation. WBC trending down, patient afebrile. pt reports improvement of low belly pain. Continue with cefepime 03/31 and daptomycin 03/31. Taper once more C/S available Urology consult, appreciate recs Other chronic medical conditions: Common variable immunodeficiency HFpEF, CAD status post stent, HTN, HLD: Home aspirin, Bumex, Plavix, diltiazem, ezetimibe, metoprolol, potassium tablet, rosuvastatin/hold until on dapto Asthma/COPD/hypersomnia on nocturnal 3 L home oxygen DM2: Suboptimal control, A1c of 10.9 last January, continue with sliding scale insulin while in hospital, closely follow-up with PCP/diabetic clinic on discharge. Chronic pain on narcotics, resume home meds: Gabapentin, oxycodone, methocarbamol Abnormal LFT, likely secondary to NAFLD, history of hepatic steatosis on prior abdominal imaging Anxiety/mood disorder: Continue with home meds, duloxetine, hydroxyzine DVT prophylaxis. Lovenox subcu Full code Dispo: pending blood culture and repeat urine cx; yet to determine need for id consult. Admission and Anticipated Discharge Date Admission Date: March 31, 2022 Subjective Patient seen and examined at bedside as a follow-up of severe sepsis secondary to complicated UTI/suprapubic catheter associated. Patient was lying in bed, on 3L NC O2, NAD, reports no new acute event overnight, reports improvement in his lower belly pain, reports eating okay and moving bowels okay. Patient denies any fever/ nausea & vomiting/sore throat/cough/chest pain/palpitation/other review of symptoms. Physical Exam Physical Exam: GENERAL: Alert and oriented x3. NAD, on RA. Obese class II. HEENT: No pallor, no icterus. Pupils equal, round and reactive to light. Oral mucosa moist. NECK: No JVD, no neck masses. HEART: S1 and S2 heard. Regular rate and rhythm. No murmur, no gallop. RESPIRATORY SYSTEM: Normal AP diameter. No accessory muscle use. No wheezing, no crackles. ABDOMEN: Soft, bowel sounds present, nontender, no distention. Suprapubic catheter w/ no erythema around the entry point, yellow urine collection noted. CENTRAL NERVOUS SYSTEM: No facial droop. Speech is clear. Obeys simple commands. Moves extremities. EXTREMITIES: No edema, no erythema seen. Results & Data Results & Data ([facility]) Vital Signs (Past 12 Hours) Vital Signs Temp Pulse Pulse Resp BP BP Pulse Ox 04/01/22 10:34 93 H 18 110/68 95 04/01/22 11:39 36.8 C 86 16 119/71 90 04/01/22 11:00 04/01/22 08:03 36.7 C 79 16 100/56 L 95 04/01/22 07:20 72 Pulse Ox O2 Del Method O2 Del Method O2 Flow Rate 04/01/22 10:34 Room Air 04/01/22 11:39 Room Air 04/01/22 11:00 95 Room Air 04/01/22 08:03 Nasal Cannula 2 04/01/22 07:20
[2022-04-01] MEDS: TAMSULOSIN HCL 0.4 MG CAP PO SCH (20:26)
[2022-04-01] MEDS: dilTIAZem HCL 240 MG CAPCR PO SCH (20:26)
[2022-04-01] MEDS: FAMOTIDINE 20 MG TAB PO SCH (20:27)
[2022-04-02] MEDS: GABAPENTIN 800 MG TAB PO SCH ×4 (01:10→17:32)
[2022-04-02] MEDS: CEFEPIME 2,000 MG in SYRINGE 0 ML IV SCH ×3 (01:16→17:32)
[2022-04-02] MEDS: oxyCODONE HCL IR 5 MG TAB (IMMEDIATE RELEASE) PO PRN ×3 (04:10→18:01)
[2022-04-02] MEDS: DAPTOmycin 575 MG in SYRINGE 0 ML IV SCH (04:11)
[2022-04-02 07:26] LABS: Hematocrit (blood only) 39.6 % (42.0-52.0); Hemoglobin 13.2 g/dl (14.0-18.0); Mean Corpuscular Hemoglobin 27.9 pg (25.0-34.0); Mean Corpuscular Hgb Conc 33.3 g/dL (32.0-36.0); Mean Corpuscular Volume 83.7 fL (80.0-100.0); Mean Platelet Volume 11.2 fL (9.4-12.4); Platelet Count 256 K/uL (130-400); RDW Coefficient of Variation 14.1 % (11.5-14.5); RDW Standard Deviation 42.9 fL (36.4-46.3); Red Blood Count 4.73 M/uL (4.70-6.10); White Blood Count 11.53 K/ul (4.8-10.8)
[2022-04-02] MEDS: INSULIN ASPART PER UNIT SC SCH ×4 (09:13→21:07)
[2022-04-02] MEDS: LANTUS PER UNIT CHARGE SQ SCH ×2 (09:14→21:06)
[2022-04-02] MEDS: EZETIMIBE 10 MG TABLET PO SCH (09:16)
[2022-04-02] MEDS: METHOCARBAMOL 750 MG TABLET PO SCH ×2 (09:16→21:06)
[2022-04-02] MEDS: FINASTERIDE 5 MG TAB PO SCH (09:16)
[2022-04-02] MEDS: DULoxetine HCL 30 MG CAP PO SCH (09:16)
[2022-04-02] MEDS: ASPIRIN 81 MG ECTAB PO SCH (09:16)
[2022-04-02] MEDS: PHENAZOPYRIDINE HCL 200 MG TAB PO PRN (09:17)
[2022-04-02] MEDS: FLUTICASONE PROPIONATE NA SPR 16 GM BTL SCH (09:17)
[2022-04-02] MEDS: METOPROLOL SUCC 25MG EXT REL TAB PO SCH (09:17)
[2022-04-02] MEDS: PANTOprazole 40 MG TAB PO SCH (09:18)
[2022-04-02] MEDS: CLOPIDOGREL BISULFATE 75 MG TAB PO SCH (09:19)
[2022-04-02] MEDS: ENOXAPARIN INJ 40 MG/0.4 ML SYR SQ SCH (09:31)
[2022-04-02] MEDS: ACETAMINOPHEN 500 MG TAB PO PRN (13:24)
[2022-04-02] MEDS: BUMETANIDE 1 MG TAB PO SCH ×2 (15:08→21:06)
--- NOTE | 2022-04-02 16:53 | Hospitalist Progress Note ---
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 Of note, patient underwent suprapubic catheter placement for detrusor failure/recurrent UTIs at [facility] last month. He is being managed for the following: Severe sepsis POA: Admit admissiontachycardia, leukocytosis, elevated lactate Catheter associated UTI Patient has extensive genitourinary history [see above] and has suprapubic catheter Recurrent UTI hx, Enterococcus; Pseudomonas with intermediate resistance to Zosyn as per records Patient presents with 1 day history of lower abdominal pain Admitting CTAP: No acute findings. Admitting CXR with no acute process. 04/09 urine culture: no growth, repeat urine cx 04/01. 03/30 blood culture: 1of4 positive for GPC in chains 04/01 blood culture: pending 04/01 ECHO w/ no vegetation. WBC trending down, patient afebrile. pt reports improvement of low belly pain. Continue with cefepime 03/31 and daptomycin 03/31. Taper once more C/S available Urology consult, appreciate recs Other chronic medical conditions: Common variable immunodeficiency HFpEF, CAD status post stent, HTN, HLD: Home aspirin, Bumex, Plavix, diltiazem, ezetimibe, metoprolol, potassium tablet, rosuvastatin/hold until on dapto Asthma/COPD/hypersomnia on nocturnal 3 L home oxygen DM2: Suboptimal control, A1c of 10.9 last January, continue with sliding scale insulin while in hospital, closely follow-up with PCP/diabetic clinic on discharge. Chronic pain on narcotics, resume home meds: Gabapentin, oxycodone, methocarbamol Abnormal LFT, likely secondary to NAFLD, history of hepatic steatosis on prior abdominal imaging Anxiety/mood disorder: Continue with home meds, duloxetine, hydroxyzine DVT prophylaxis. Lovenox subcu Full code Dispo: pending blood culture and repeat urine cx. Admission and Anticipated Discharge Date Admission Date: March 31, 2022 Subjective Patient seen and examined at bedside as a follow-up of severe sepsis secondary to complicated UTI/suprapubic catheter associated. Patient was lying in bed, on 3L NC O2, NAD, reports no new acute event overnight, reports no lower belly pain, reports eating okay and moving bowels okay. Patient denies any fever/ nausea & vomiting/sore throat/cough/chest pain/palpitation/other review of symptoms. Pt's at bedside, who was also updated. Physical Exam Physical Exam: GENERAL: Alert and oriented x3. NAD, on RA. Obese class II. HEENT: No pallor, no icterus. Pupils equal, round and reactive to light. Oral mucosa moist. NECK: No JVD, no neck masses. HEART: S1 and S2 heard. Regular rate and rhythm. No murmur, no gallop. RESPIRATORY SYSTEM: Normal AP diameter. No accessory muscle use. No wheezing, no crackles. ABDOMEN: Soft, bowel sounds present, nontender, no distention. Suprapubic catheter w/ no erythema around the entry point, yellow urine collection noted. CENTRAL NERVOUS SYSTEM: No facial droop. Speech is clear. Obeys simple commands. Moves extremities. EXTREMITIES: No edema, no erythema seen. Results & Data Results & Data ([facility]) Vital Signs (Past 12 Hours) Vital Signs Temp Pulse Pulse Resp BP Pulse Ox O2 Del Method 04/02/22 16:27 36.7 C 73 20 119/72 94 Room Air 04/02/22 14:10 Room Air, Nasal Cannula 04/02/22 13:45 75 04/02/22 11:00 04/02/22 11:54 36.8 C 70 20 119/75 94 Room Air 04/02/22 07:48 37.5 C 81 20 124/73 93 Nasal Cannula O2 Del Method O2 Flow Rate 04/02/22 16:27 04/02/22 14:10 2 04/02/22 13:45 04/02/22 11:00 Room Air 04/02/22 11:54 04/02/22 07:48 2
[2022-04-02] MEDS: FAMOTIDINE 20 MG TAB PO SCH (21:06)
[2022-04-02] MEDS: TAMSULOSIN HCL 0.4 MG CAP PO SCH (21:06)
[2022-04-02] MEDS: dilTIAZem HCL 240 MG CAPCR PO SCH (21:06)
[2022-04-03] MEDS: oxyCODONE HCL IR 5 MG TAB (IMMEDIATE RELEASE) PO PRN ×3 (00:15→12:13)
[2022-04-03] MEDS: GABAPENTIN 800 MG TAB PO SCH ×3 (00:15→12:13)
[2022-04-03] MEDS: CEFEPIME 2,000 MG in SYRINGE 0 ML IV SCH ×2 (04:24→11:13)
[2022-04-03] MEDS: DAPTOmycin 575 MG in SYRINGE 0 ML IV SCH (04:25)
[2022-04-03 06:41] LABS: Hematocrit (blood only) 41.5 % (42.0-52.0); Hemoglobin 13.9 g/dl (14.0-18.0); Mean Corpuscular Hemoglobin 27.9 pg (25.0-34.0); Mean Corpuscular Hgb Conc 33.5 g/dL (32.0-36.0); Mean Corpuscular Volume 83.2 fL (80.0-100.0); Mean Platelet Volume 11.1 fL (9.4-12.4); Platelet Count 263 K/uL (130-400); RDW Coefficient of Variation 14.2 % (11.5-14.5); Red Blood Count 4.99 M/uL (4.70-6.10); White Blood Count 10.74 K/ul (4.8-10.8)
[2022-04-03] MEDS: DULoxetine HCL 30 MG CAP PO SCH (08:14)
[2022-04-03] MEDS: METOPROLOL SUCC 25MG EXT REL TAB PO SCH (08:14)
[2022-04-03] MEDS: FINASTERIDE 5 MG TAB PO SCH (08:14)
[2022-04-03] MEDS: METHOCARBAMOL 750 MG TABLET PO SCH (08:14)
[2022-04-03] MEDS: PANTOprazole 40 MG TAB PO SCH (08:14)
[2022-04-03] MEDS: EZETIMIBE 10 MG TABLET PO SCH (08:14)
[2022-04-03] MEDS: CLOPIDOGREL BISULFATE 75 MG TAB PO SCH (08:15)
[2022-04-03] MEDS: ENOXAPARIN INJ 40 MG/0.4 ML SYR SQ SCH (08:15)
[2022-04-03] MEDS: ASPIRIN 81 MG ECTAB PO SCH (08:15)
[2022-04-03] MEDS: BUMETANIDE 1 MG TAB PO SCH (08:15)
[2022-04-03] MEDS: FLUTICASONE PROPIONATE NA SPR 16 GM BTL SCH (08:16)
[2022-04-03] MEDS: LANTUS PER UNIT CHARGE SQ SCH (08:25)
[2022-04-03] MEDS: INSULIN ASPART PER UNIT SC SCH ×2 (08:25→12:18)
[2022-04-03] MEDS: ACETAMINOPHEN 500 MG TAB PO PRN (12:12)
--- NOTE | 2022-04-03 12:54 | Discharge Summary ---
Date of Service April 03, 2022 Admission HPI Per Admitting Provider Chief Complaint: Abdominal pain pain, nausea, vomiting Primary Care Provider: Yann Fraga MD History obtained from patient and records. 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 Last confinement November 2021 for sepsis secondary to complicated UTI. No growth on cultures. Patient discharged on Levaquin course. Patient underwent suprapubic catheter placement for detrusor failure/recurrent UTIs at [facility] last month. 3 days ago, patient noted cough, shortness of breath symptoms improved with outpatient COPD rescue kit. Yesterday afternoon, patient woke up with achy lower abdominal pain associated with nausea, vomiting. No diarrhea symptoms. No chest pain, no SOB. Blood sugar lower than usual as per patient. IV cefepime administered at the ER for sepsis. Medical Historyas above Surgical History : Suprapubic catheter placement, TURP Family History : DM, heart disease Personal/Social history : Non-smoker, no EtOH intake, disabled Allergies Admission Exam Per Admitting Provider GENERAL: Slightly uncomfortable, obese, no respiratory distress SKIN: Normal color, warm HEENT: [place] palpebral conjunctivae, no ptosis, dry buccal mucosa NECK : Supple, short neck, no tenderness CHEST : CTA, no tenderness HEART : Tachycardic, no obvious murmurs ABDOMEN: Suprapubic catheter in place, some distention, hypogastric tenderness EXTREMITIES : Minimal LE swelling , no LE tenderness, no other conspicuous deformities noted NEUROLOGIC : Coherent, no facial asymmetry, no other gross focality Principal Diagnosis CAUTI, ruled out Likely transient gastroenteritis Discharge Exam GENERAL: Alert and oriented x3. NAD, on RA. Obese class II. HEENT: No pallor, no icterus. Pupils equal, round and reactive to light. Oral mucosa moist. NECK: No JVD, no neck masses. HEART: S1 and S2 heard. Regular rate and rhythm. No murmur, no gallop. RESPIRATORY SYSTEM: Normal AP diameter. No accessory muscle use. No wheezing, no crackles. ABDOMEN: Soft, bowel sounds present, nontender, no distention. Suprapubic catheter w/ no erythema around the entry point, yellow urine collection noted. CENTRAL NERVOUS SYSTEM: No facial droop. Speech is clear. Obeys simple commands. Moves extremities. EXTREMITIES: No edema, no erythema seen. Discharge Data Allergies Allergy/AdvReac Type Severity Reaction Status Date / Time atenolol Allergy Severe DEPRESSION/ Verified 03/31/22 00:22 SUICIDAL amoxicillin Allergy Intermediate "SEVERE" Verified 03/31/22 00:22 DIARRHEA celecoxib Allergy Intermediate FLUID Verified 03/31/22 00:22 RETENTION-WT GAIN clavulanic acid Allergy Intermediate "SEVERE" Verified 03/31/22 00:22 DIARRHEA fentanyl Allergy Intermediate Rash Verified 03/31/22 00:22 adhesive tape Allergy Mild RASH--? Verified 03/31/22 00:22 ADHESIVE ALLERGY fluoxetine AdvReac Severe HALLUCINATI Verified 03/31/22 00:22 ONS Consultations 03/31/22 02:30 ED Decision to Admit Stat 03/31/22 11:40 Consult Urology Routine Ordered Studies 03/30/22 23:00 CT Abd and Pelvis [CT abd pelvis IV con only] Urgent Hospital Course (1) Nausea & vomiting: Plan 61-year-old male with PMH of recurrent UTI, BPH/urinary retention/detrusor failure status post suprapubic catheter placement, chronic pain on narcotics, anxiety/mood disorder, chronic diastolic heart failure [EF 55%, TTE 2021], CAD status post stent, HTN, HLD, asthma/COPD/hypersomnia on nocturnal home O2 3 L, common variable immunodeficiency, DM2 presented to the ED 03/31 w/ c/o 1 day history of lower abdominal pain associated with nausea and vomiting, no diarrhea symptoms or chest pain or shortness of breath. Of note, patient underwent jefferson prapubic catheter placement for detrusor failure/recurrent UTIs at [facility] last month. He was managed for the following: Severe sepsis POA:Admit admissiontachycardia, leukocytosis, elevated lactate. Ruled out. Catheter associated UTI, ruled out. Likely transient and mild gastroenteritis Patient has extensive genitourinary history [see above] and has suprapubic catheter Recurrent UTI hx, Enterococcus; Pseudomonas with intermediate resistance to Zosyn as per records Patient presents with 1 day history of lower abdominal pain a/w N, V. Admitting CTAP: No acute findings. Admitting CXR with no acute process. 04/09 urine culture: no growth, repeat urine cx 04/01 w/ no growth 03/30 blood culture: 1of4 positive for GPC in chains, came out to be contaminant 04/01 blood culture: No growth 48 hours on DC day. 04/01 ECHO w/ no vegetation. Looking retrospectively when Bl Cx x2 and UCx x 2 yielded no growth, most likely explanation of his septic presentation could be dehydration as his WBC/Hb/Cr/BUN all were elevated along w/ lactate. Also he seems to have chronic wbc elevation. He also have improved belly pain on the morning right after presentation. He has had no fever. Will DC iv atb, pt explained, RN at bedside as well. Pt to f/u pcp and uro as OP. This could have been likely transient gastroenteritis. Other chronic medical conditions: Common variable immunodeficiency HFpEF, CAD status post stent, HTN, HLD: Home aspirin, Bumex, Plavix, diltiazem, ezetimibe, metoprolol, potassium tablet,rosuvastatin Asthma/COPD/hypersomnia on nocturnal 3 L home oxygen DM2: Suboptimal control, A1c of 10.9 last January, continue with sliding scale insulin while in hospital,closely follow-up with PCP/diabetic clinic on discharge. Chronic pain on narcotics, resume home meds: Gabapentin, oxycodone, methocarbamol Abnormal LFT, likely secondary to NAFLD, history of hepatic steatosis on prior abdominal imaging Anxiety/mood disorder: Continue with home meds, duloxetine, hydroxyzine DVT prophylaxis. Lovenox subcu Full code Patient being discharged home with following instruction at the point of discharge: Follow-up with the primary care physician within a week time and likely you will need labs CBC/CMP. Follow-up with your urology as an outpatient. Follow-up with your diabetic clinic or PCP for ongoing management of your diabetes. Take your medications as prescribed. Home Health Attestation I certify that this patient is under my care and that I, or a physicians auction assistant working with me, had a face to-face encounter that meets the home health [id number] encounter requirements with this patient. The encounter with the patient was in whole, or in part, for the following medical condition, which is the primary reason for home health care (list medical condition): I certify that, based on my findings, the following services are medically necessary home health services: My clinical findings support the need for the above services because: Further, I certify that my clinical findings support that this patient is homebound (i.e. absences from home require considerable and taxing effort and are for medical reasons or denominational services or infrequently or of short duration when for other reasons) because: Certification for Home Health Services: Based on the above findings, I certify that this patient is confined to the home and needs intermittent custodial care, physical therapy and/or speech therapy or continues to need occupational therapy. The patient is under my care, and I have initiated the establishment of the plan of care. This patient will be followed by a physician who will periodically review the plan of care. Total Time Total Time Spent Total Time Spent (In Minutes): 50 Discharge Plan Discharge Items Patient Disposition: Home - Self-Care Reason For Visit: SEPSIS Discharge Diagnosis: Catheter associated UTI, ruled out Likely transient gastroenteritis Condition on Discharge: Fair Activity: Resume your previous activity Non-emergency contact: Primary Care Provider Call non-emergency contact if: you have any medication questions Follow-up/Referrals: Yann Fraga MD [Primary Care Provider] - (Date & Time 04/06/2022 10:00 AM Provider Danny Rebolledo MD [facility] ) Diet: Carb Consistent or DM2 Addtl Attending Provider Instructions: Follow-up with the primary care physician within a week time and likely you will need labs CBC/CMP. Follow-up with your urology as an outpatient. Follow-up with your diabetic clinic or PCP for ongoing management of your diabetes. Take your medications as prescribed. Pending Studies at Discharge: Yes Stand-Alone Forms: My [employer], Smoking Cessation Medications and DC Order Prescriptions: Continued Hizentra 4 gram/20 mL (20 %) syringe See Rx Instructions subcut .COMPLEX Qty: 240 11RF Rx Instructions: INFUSE HIZENTRA 12 GM SQ WEEKLY albuterol sulfate [Ventolin HFA] 90 mcg/actuation HFA aerosol inhaler 2 puff INHALATION Q6H PRN (Reason: Shortness Of Breath Or Wheezing) Qty: 8.5 4RF diltiazem HCl 240 mg Capsule,Extended Release 24 Hr 240 mg PO QPM tamsulosin 0.4 mg Capsule 0.4 mg PO HS fluticasone propionate [Flonase Allergy Relief] 50 mcg/actuation Spr ay,Suspension 2 spray INTRANASAL DAILY cyanocobalamin (vitamin B-12) 1,000 mcg Tablet, Sublingual 1,000 mcg SUBLINGUAL DAILY insulin glargine [Lantus Solostar U-100 Insulin] 100 unit/mL (3 mL) Insulin Pen 37 unit SUBCUT BID Rx Instructions: GM HAS 78 UNITS BID. bumetanide 1 mg tablet 3 mg PO DAILY metoprolol succinate 25 mg tablet extended release 24 hr 37.5 mg PO DAILY rosuvastatin 40 mg tablet 40 mg PO HS naloxone 4 mg/actuation [place],Non-Aerosol 4 mg INTRANASAL DIRECTED PRN (Reason: OVERSEDATION) Rx Instructions: spray into nostril for suspected opioid overdose glipizide 5 mg Tablet Extended Release 24hr 5 mg PO DAILY magnesium oxide 500 mg Tablet 500 mg PO DAILY ergocalciferol (vitamin D2) [Vitamin D2] 1,250 mcg (50,000 unit) Capsule 1,250 mcg PO WK Rx Instructions: Sundays Trulicity 4.5 mg/0.5 mL Pen Injector 4.5 mg SUBCUT WK Label Comments: Takes on Sundays Rx Instructions: INJECT 1 PEN UNDER THE SKIN ONCE WEEKLY--PER [facility] [place]. gabapentin 800 mg tablet 800 mg PO Q6H phenazopyridine 200 mg tablet 200 mg PO Q8H PRN (Reason: Bladder Spasms) doxycycline monohydrate 100 mg Capsule 100 mg PO BID PRN (Reason: RESCUE KIT) Rx Instructions: RESCUE KIT--TAKE BID X 10 DAYS. pantoprazole [Protonix] 40 mg Tablet,Delayed Release (Dr/Ec) 40 mg PO DAILY cyclobenzaprine 5 mg tablet 5 mg PO TID PRN (Reason: MUSCLE SPASMS) duloxetine 30 mg capsule,delayed release(DR/EC) 30 mg PO DAILY oxycodone 10 mg Tablet 10 mg PO Q6H PRN (Reason: Pain) Rx Instructions: May take an additional 1/2 tab up to twice a day. methocarbamol 750 mg Tablet 750 mg PO BID insulin lispro 100 unit/mL Solution 40 - 45 unit SUBCUT ACHS finasteride 5 mg tablet 5 mg PO QAM potassium chloride 20 mEq tablet extended release 20 meq PO DAILY Rx Instructions: up to BID. hydroxyzine HCl 50 mg Tablet 50 mg PO TID PRN (Reason: Anxiety) famotidine [Acid Supervisor Dumping (famotidine)] 20 mg tablet 20 mg PO HS clopidogrel 75 mg Tablet 75 mg PO QAM Qty: 30 1RF ezetimibe 10 mg Tablet 10 mg PO QAM Qty: 30 1RF aspirin [Chari Low Dose Aspirin] 81 mg Tablet,Delayed Release (Dr/Ec) 81 mg PO QAM Qty: 30 1RF Discharge Orders: Discharge Order (Routine); Ordered 04/03/22 Ordered By: Anastacia Basurto Admission Data Admit Date/Time: 03/31/22 02:29 Attending Provider: Anastacia Basurto Admit Provider: Blayne Case Primary Care Provider: Yann Fraga Other Providers: Blayne Case ; Tan Trujillo
== END 2022-04-03 14:02 | disposition home or self-care (01) | DRG 392 ==
LOC: ED 22:07 → EDINP 03-31 02:29 → 2N 03-31 04:33